=== PATIENT | male | born 1960 | race Caucasian/White ===

== ENCOUNTER 2016-11-18 11:23 | Day surgery (SDC) | payer OTHER ==
[~2016-11-18 11:23] MED LIST: ALBU0.63 NEB; ASPI-110 PO; BYST10TA2 PO; FURO1TAB60 PO; HYDR-3583 PO; LIPI80TA PO; MAGN400C2; MYCO500 PO; NOVOLOGMXP SQ; PRED5TAB PO; PROPOFOL 200 MG/20 ML AMP IV ONE; SENS60TA PO; TACR1 PO; VALS1TAB65 PO; VENTAER INH; VITA20003
[2016-11-18] MEDS ORDERED: LANTUS2P SQ (12:41)
[2016-11-18] MEDS ORDERED: DIOV80TA4 PO (12:41)
[2016-11-18] MEDS ORDERED: METO50TA PO (12:41)
[2016-11-18] MEDS ORDERED: ISOS30TA3 PO (12:41)
[2016-11-18] MEDS ORDERED: INSULIN HUMAN REGULAR 1,000 UNITS/10 ML VIAL SQ PRN (12:45)
[2016-11-18] MEDS ORDERED: LACTATED RINGER'S 1000 ML IV PRN (12:45)
[2016-11-18] MEDS ORDERED: METOPROLOL TARTRATE 25 MG TAB PO PRN (12:45)
[2016-11-18] MEDS ORDERED: POVIDONE IODINE 5% (ANTISEPSIS KIT) 4 APPLICATIONS EACH NARE PRN (12:45)
[2016-11-18] MEDS ORDERED: SODIUM CHLORID 0.9% 500 ML IV PRN (12:45)
[2016-11-18] MEDS ORDERED: CHLORHEXIDINE GLUCONATE 2 % 1 PACK (2 CLOTHS) TOPICAL PRN (12:45)
[2016-11-18] MEDS ORDERED: MISCELLANEOUS NURSING INFORMATION XX PRN (14:00)
--- NOTE | 2016-11-18 16:50 | ECHRPT ---
Indication: ENOCARDITIS CONCLUSIONS Normal left ventricular size and wall thickness. The left ventricular systolic function is normal wi th an estimated ejection fraction in the range of 60-65%. Left ventricular diastolic function parameters a re normal. Mild thickening of the mitral valve leaflets. Mild mitral valve regurgitation. Mitral annular calcification is present. Mild thickening of the tricuspid valve leaflets. There is mild tricuspid valve regurgitation. BP: / HR: Rhythm: MEASUREMENTS (Male / Female) Normal Values Technical Quality: DOPPLER TR Peak Velocity 275.0 cm/s TR Peak Gradient 30.3 mmHg Medications Complications There were no complications prior to, during or in recovery from the transesophag eal echocardiogram.. Proc. Components The patient was brought to the diagnostic imaging area in a fasting state after o btaining an informed consent. The patient was premedicated with IV Versed and IV Fentanyl. The regulatory compliance engineer ior pharynx was sprayed with Cetacaine spray and the patient was administered viscous Xylocaine 2 %. The SEBASTIEN probe was passed into the posterior pharynx , mid-esophagus, distal esophagus, and gastric fundus. SEBASTIEN was performed at multiple levels. The patient tolerated the procedure well and there were no complications. The patient was transferred to the floor in satisfactory condition.. FINDINGS LEFT VENTRICLE Normal left ventricular size and wall thickness. The left ventricular systolic function is normal wi th an estimated ejection fraction in the range of 60-65%. Left ventricular diastolic function parameters a re normal. RIGHT VENTRICLE Normal right ventricular size and systolic function. LEFT ATRIUM The left atrial size is normal. RIGHT ATRIUM The right atrial size is normal. ATRIAL APPENDAGES Normal left atrial appendage size with no evidence of thrombus formation. ATRIAL SEPTUM Normal atrial septal thickness without atrial level shunting by limited color doppler interrogation. AORTA The aortic root and proximal ascending aorta are normal in size on limited imaging. MITRAL VALVE Mild thickening of the mitral valve leaflets. Mild mitral valve regurgitation. Mitral annular calcification is present. AORTIC VALVE Trileaflet aortic valve. No aortic valve stenosis or regurgitation. TRICUSPID VALVE Mild thickening of the tricuspid valve leaflets. There is mild tricuspid valve regurgitation. VESSELS The inferior vena cava is normal in size. PULMONARY VALVE The pulmonary valve is not well visualized. PERICADIUM No pericardial effusion. Ramos Arredondo MD, FACC (Electronically Signed) Final Date:18 November 2016 16:49
== END 2016-11-18 14:45 | disposition home or self-care (01) ==
LOC: HDIC 11:23 → HDOC 11:23
PROVIDERS: ATTEND Internal Medicine
DX: I08.1 Rheumatic disorders of both mitral and tricuspid valves (principal); I25.10 Atherosclerotic heart disease of native coronary artery without angina pectoris; I12.0 Hypertensive chronic kidney disease with stage 5 chronic kidney disease or end stage renal disease; N18.6 End stage renal disease; R78.81 Bacteremia; F17.210 Nicotine dependence, cigarettes, uncomplicated; J44.9 Chronic obstructive pulmonary disease, unspecified; G47.30 Sleep apnea, unspecified; E11.9 Type 2 diabetes mellitus without complications; E66.9 Obesity, unspecified; Z99.2 Dependence on renal dialysis; Z95.5 Presence of coronary angioplasty implant and graft; Z95.1 Presence of aortocoronary bypass graft; Z79.82 Long term (current) use of aspirin; Z79.4 Long term (current) use of insulin; Z79.51 Long term (current) use of inhaled steroids; Z79.52 Long term (current) use of systemic steroids; Z79.899 Other long term (current) drug therapy
CPT/HCPCS: 93312; 93320; 93325

== ENCOUNTER 2017-04-06 13:46 | Emergency (ER) | payer OTHER ==
[~2017-04-06] VITALS: Ht 180.3 cm; Wt 122.0 kg
[~2017-04-06 13:46] MED LIST changes: -ASPI-110 PO; +ASPI1TAB57 PO; -BYST10TA2 PO; +DIOV80TA4 PO; -FURO1TAB60 PO; +ISOS30TA3 PO; +LANTUS2P SQ; -MAGN400C2; +METO50TA PO; -NOVOLOGMXP SQ; -PROPOFOL 200 MG/20 ML AMP IV ONE; -VALS1TAB65 PO; -VITA20003
[2017-04-06 13:53] VITALS: BP 216/98; PULSE 89; RESP 16; TEMP 98.8; O2SAT 95
--- NOTE | 2017-04-06 15:01 | RADRPT ---
EXAM DATE/TIME: 04/06/2017 14:15 [facility] COMPARISON: No previous studies available for comparison. INDICATIONS : Left knee pain. Patient fell through a floor today. MEDICAL HISTORY : None. SURGICAL HISTORY : None. ENCOUNTER: Initial ACUITY: 1 day PAIN SCORE: 8/10 LOCATION: Left knee. FINDINGS: There is moderate osteoarthritis. Multiple surgical clips in the soft tissues. Extensive vascular tarsha cifications. Mild osteopenia. CONCLUSION: 1. Moderate osteoarthritis. No acute fracture identified. Rui Brito MD on April 06, 2017 at 14:57 Board Certified Radiologist. This report was verified electronically.
--- NOTE | 2017-04-06 15:04 | RADRPT ---
EXAM DATE/TIME: 04/06/2017 14:15 [facility] COMPARISON: No previous studies available for comparison. INDICATIONS : Left ankle pain. Patient fell through a floor today. MEDICAL HISTORY : None. SURGICAL HISTORY : None. ENCOUNTER: Initial ACUITY: 1 day PAIN SCORE: 8/10 LOCATION: Left medial ankle. FINDINGS: Mild osteoarthritis of the ankle. Mild osteopenia. Normal alignment. No acute fracture identified. Aldana rgical clips in the soft tissues of the distal leg. CONCLUSION: 1. Mild osteoarthritis. No acute findings. Rui Brito MD on April 06, 2017 at 14:59 Board Certified Radiologist. This report was verified electronically.
--- NOTE | 2017-04-06 15:41 | PD ---
HPI Chief Complaint: Fall Time Seen by Provider: 15:06 Travel History International Travel<30 days: No Contact w/Intl Traveler<30days: No Traveled to known affect area: No History of Present Illness HPI This is a 56-year-old male here with left knee and left ankle pain after he fell approximately 2 feet through a rotted wood floor, he believes he twisted the ankle and the knee. He denies paresthesias or weakness of extremity. Pain is worse with weightbearing and range of motion. Slightly alleviated with rest. He denies head injury or loss of consciousness. Patient is not anticoagulated. PFSH Past Medical History Arthritis: No Asthma: No Autoimmune Disease: No Anxiety: No Depression: No Heart Rhythm Problems: No Cancer: Yes (skin lt ear) Cardiac Catheterization: Yes Cardiovascular Problems: Yes (6 Bypasses) High Cholesterol: Yes Chemotherapy: No Chest Pain: Yes Congestive Heart Failure: Yes COPD: No Cerebrovascular Accident: No Coronary Artery Disease: Yes Diabetes: Yes (NIDM) Diminished Hearing: No Endocrine: No Gastrointestinal Disorders: Yes (GI bleed) GERD: No Glaucoma: No Gout: Yes Genitourinary: Yes Hepatitis: No Hiatal Hernia: No Hypertension: Yes Immune Disorder: No Kidney Stones: No Musculoskeletal: Yes Neurologic: No Psychiatric: No Reproductive: No Respiratory: Yes (bronchitis) Integumentary: No Myocardial Infarction: No Pneumonia: Yes (? FEB 2013) Radiation Therapy: Yes (2007 left ear) Renal Failure: Yes (end stage) Seizures: No Sickle Cell Disease: No Thyroid Disease: No Ulcer: Yes (small intestines) Past Surgical History AICD: No Appendectomy: Yes Arteriovenous Shunt: No Body Medical Devices: Sternal wires and stent Cardiac Surgery: Yes (CABGx6) Coronary Artery Bypass Graft: Yes (2003 X 6) Coronary Stent: Yes (1) Endocrine Surgery: No Eye Surgery: No Gynecologic Surgery: No Insulin Pump: No Joint Replacement: No Oral Surgery: No Pacemaker: No Tonsillectomy: Yes Other Surgery: Yes (RENAL TRANSPLANT 2004) Social History Alcohol Use: Yes (MAYBE 3-4 TIMES A YEAR) Tobacco Use: No (QUIT 2003) Substance Use: No Allergies-Medications (Allergen,Severity, Reaction): Coded Allergies: No Known Allergies (Verified Adverse Reaction, Unknown, 04/06/17) Reported Meds & Prescriptions Reported Meds & Active Scripts Active Reported Diovan (Valsartan) 80 Mg Tab 80 Mg PO DAILY Metoprolol Tartrate 50 Mg Tab 50 Mg PO BID Lantus Inj (Insulin Glargine) 1,000 Unit/10 Ml Vial 25 Units SQ HS Isosorbide Mononitrate ER (Isosorbide Mononitrate) 30 Mg [place] 30 Mg PO DAILY Sensipar (Cinacalcet) 60 Mg Tab 60 Mg PO DAILY Prograf (Tacrolimus) 1 Mg Cap 1 Mg PO DAILY Lipitor (Atorvastatin Calcium) 80 Mg Tab 80 Mg PO HS Cellcept (Mycophenolate Mofetil) 500 Mg Tab 500 Mg PO BID Aspirin 81 (Aspirin) 81 Mg Tabdr 81 Mg PO DAILY Hydrocodone-Acetaminophen 10-325 mg Tab 1 Tab PO Q6H PRN Ventolin Hfa 18 GM Inh (Albuterol Sulfate) 90 Mcg/Act Aer 2 Puff INH Q6H PRN Albuterol Neb (Albuterol Sulfate) 0.63 Mg/3 Ml Neb 0.63 Mg NEB Q6HR NEB PRN Prednisone 5 Mg Tab 5 Mg PO DAILY Review of Systems Except as stated in HPI: all other systems reviewed are Neg General / Constitutional: No: Fever Eyes: No: Visual changes HENT: No: Headaches Cardiovascular: No: Chest Pain or Discomfort Respiratory: No: Shortness of Breath Gastrointestinal: No: Abdominal Pain Genitourinary: No: Dysuria Physical Exam Narrative GENERAL: Alert and well-appearing 56-year-old male SKIN: Warm and dry. HEAD: Normocephalic. Atraumatic EYES: Pupils equal, round, reactive to light No injection or drainage. NECK: Supple, trachea midline. No cervical midline tenderness MUSCULOSKELETAL: No cyanosis, or edema. Left lower extremity: Tenderness to the anterior aspect of the knee and over the left Achilles tendon. able to dorsiflex and plantarflex the foot. No discernible swelling. 2+ distal pulses. Normal sensation. Brisk cap refill. BACK: Nontender without obvious deformity. No CVA tenderness. Data Data Last Documented VS Vital Signs Date Time Temp Pulse Resp B/P (MAP) Pulse Ox O2 Delivery O2 Flow Rate FiO2 04/06/17 13:53 98.8 89 16 216/98 (137) 95 Orders Orders Knee, Complete (4vws) (04/06/17 ) Ankle, Complete ([id number]) (04/06/17 ) Ed Discharge Order (04/06/17 15:31) Arsh Bandage (04/06/17 15:31) [facility] Medical Decision Making Medical Screen Exam Complete: Yes Emergency Medical Condition: Yes Differential Diagnosis Fracture, strain, sprain, contusion Narrative Course 56-year-old male with left knee and ankle pain after he fell through a rotten wooden floor approximately 2 feet. He believes he twisted the ankle and knee. X-rays are negative for fracture. The extremities are neurovascularly intact. He is able to dorsiflex and plantarflex the foot although it is difficult due to pain in the ankle. He is ambulatory. Arsh wrap supplied. He was instructed to rest, ice, elevate the extremity. Take his current pain medication as needed. Follow up with primary doctor. Diagnosis Primary Impression: Ankle sprain Qualified Codes: S93.402A - Sprain of unspecified ligament of left ankle, initial encounter Additional Impression: Knee sprain Qualified Codes: S83.92XA - Sprain of unspecified site of left knee, initial encounter Referrals: Primary Care Physician Additional Instructions: Ice and elevate the extremity. Arsh wrap for support. Take her current pain medication. Follow-up with her primary doctor if you have continued pain Disposition: 01 DISCHARGE HOME Condition: Stable Lashae Cline Apr 06, 2017 15:41
== END 2017-04-06 15:59 | disposition home or self-care (01) ==
LOC: PHEFT 13:46
DX: S93.402A Sprain of unspecified ligament of left ankle, initial encounter (principal); S83.92XA Sprain of unspecified site of left knee, initial encounter; E11.9 Type 2 diabetes mellitus without complications; E78.00 Pure hypercholesterolemia, unspecified; I11.0 Hypertensive heart disease with heart failure; I50.9 Heart failure, unspecified; W13.3XXA Fall through floor, initial encounter; Z79.4 Long term (current) use of insulin
CPT/HCPCS: 73564; 73610; 99284

== ENCOUNTER → 2017-05-13 | Outpatient (CLI) | payer OTHER ==
[~2017-05-13] VITALS: Ht 180.3 cm; Wt 115.7 kg
[~2017-05-13] MED LIST changes: +CHLORHEXIDINE GLUCONATE 2 % 1 PACK (2 CLOTHS) TOPICAL PRN; +LACTATED RINGER'S 1000 ML IV PRN; +METOPROLOL TARTRATE 25 MG TAB PO PRN; +POVIDONE IODINE 5% (ANTISEPSIS KIT) 4 APPLICATIONS EACH NARE PRN; +PROPOFOL 200 MG/20 ML AMP IV ONE; +SODIUM CHLORID 0.9% 500 ML IV PRN
--- NOTE | 2017-05-13 10:33 | PD.PROCEDR ---
GI Procedure PROCEDURE PERFORMED EGD with biopsy INDICATION FOR PROCEDURE Nausea and vomiting PROCEDURE: The procedure, risks and benefits were discussed with Mr. Salguero and informed consent was obtained. Anesthesia sedated him with Diprivan. He was placed in the left lateral decubitus position. EGD: The Pentax videoscope was introduced through the oropharynx and advanced to the second portion of the duodenum under direct visualization. Retroflexion was performed in the stomach. FINDINGS: The esophagus this appear to be unremarkable with normal limits except for a mild Schatzki ring at the GE junction The stomach there was a small hiatal hernia there was patchy erythema in the gastric body and antrum with superficial erosions noted in the antrum the rest of the stomach was unremarkable antral biopsies were taken for further evaluation The duodenum this was normal ESTIMATED BLOOD LOSS: None SPECIMENS REMOVED: Gastric biopsies COMPLICATIONS: None IMPRESSION: Schatzki ring, mild Small hiatal hernia Erosive gastritis PLAN: Await biopsies Recommend pantoprazole 40 mg daily this was ordered Recommend promethazine 12.5 mg every 4-6 hours or as needed for nausea and vomiting already ordered Recommend gastric emptying scan this was ordered Follow up in clinic in 3-4 weeks Franko Mejia MD May 13, 2017 10:33
[2017-05-13 10:59] VITALS: BP 131/69; PULSE 88; RESP 20; TEMP 98; O2SAT 96
--- NOTE | 2017-05-13 11:38 | EKG ---
Date Performed: 05/13/2017 Time Performed: 08:52:26 PTAGE: 56 years EKG: Sinus rhythm MODERATE INTRAVENTRICULAR CONDUCTION DELAY BORDERLINE ECG Since the prior tracing, there has been no significant change PREVIOUS TRACING : 11/14/2015 05.33 DOCTOR: Phoebe Carr Interpretating Date/Time 05/13/2017 11:35:30
== END ==
LOC: HEND 08:04
PROVIDERS: ATTEND Internal Medicine Gastroenterology
DX: R11.2 Nausea with vomiting, unspecified (principal); K22.2 Esophageal obstruction; K44.9 Diaphragmatic hernia without obstruction or gangrene; K25.9 Gastric ulcer, unspecified as acute or chronic, without hemorrhage or perforation; R94.31 Abnormal electrocardiogram [ECG] [EKG]; E11.9 Type 2 diabetes mellitus without complications; Z79.4 Long term (current) use of insulin
CPT/HCPCS: 00731; 43239; 82948; 84132; 88305; 88312; 93005; J7040

== ENCOUNTER 2018-04-11 10:19 | Inpatient (IN) ==
--- NOTE | 2018-04-11 10:59 | XR ---
EXAM DATE: 04/11/2018 10:49 AM EST AGE/SEX: 57 years / Male INDICATIONS: Chest pains. CLINICAL DATA: This is the patient's initial encounter. Patient reports that signs and symptoms have been present for 1 day and indicates a pain score of 10/10. MEDICAL/SURGICAL HISTORY: Myocardial infarction. Cardiovascular disease. CABG. [place]PAR[place] [facility] 01/[place]2014. . FINDINGS: A single AP view of the chest demonstrates the lungs to be symmetrically aerated with no acute infilt rate or mass lesion. Heart size is prominent but well compensated. Intact median sternotomy wires wit h findings of prior CABG. Multiple lead wires overlie the chest. CONCLUSION: 1. Compensated cardiomegaly. 2. Lungs are clear. 3. Postsurgical changes with findings of prior CABG. Electronically signed by: Chuy Davis MD Board Certified Radiologist 04/11/2018 10:58 AM EST
[2018-04-11 11:06] LABS: Baso # (Auto) 0.1 th/mm3 (0.0-0.2); Baso % (Auto) 0.3 % (0.0-2.0); Eos # (Auto) 0.3 th/mm3 (0.0-0.4); Eos % (Auto) 1.8 % (0.0-4.0); Hematocrit 30.9 % (39.0-51.0); Hemoglobin 9.6 gm/dL (13.0-17.0); Lymph # (Auto) 1.3 th/mm3 (1.0-4.8); Lymph % (Auto) 7.6 % (9.0-44.0); Mean Corpuscular Hemoglobin 28.4 pg (27.0-34.0); Mean Corpuscular Volume 91.7 fL (80.0-100.0); Mean Platelet Volume 9.9 fL (7.0-11.0); Mono # (Auto) 0.8 th/mm3 (0.0-0.9); Neut # (Auto) 14.5 th/mm3 (1.8-7.7); Neut % (Auto) 85.3 % (16.0-70.0); Platelet Count 255 th/mm3 (150-450); Red Blood Count 3.37 mil/mm3 (4.50-5.90); Red Cell Distribution Width 18.3 % (11.6-17.2)
[2018-04-11 11:07] LABS: Mean Corpuscular HGB Conc 30.9 % (32.0-36.0)
[2018-04-11 11:11] LABS: Activated Partial Thrombo Time 24.5 sec (23.4-31.7); INR 1.2 Ratio; Prothrombin Time 12.1 sec (9.8-11.6)
[2018-04-11 11:25] LABS: Albumin 3.3 g/dL (3.4-5.0); Calcium 6.2 mg/dL (8.5-10.1); Carbon Dioxide 17.5 meq/L (21.0-32.0); Potassium 5.2 meq/L (3.5-5.1)
[2018-04-11 11:34] LABS: Total Protein 7.4 g/dL (6.4-8.2); Troponin I 0.07 ng/mL (0.02-0.05)
--- NOTE | 2018-04-11 11:46 | ED ---
HPI General Chief complaint: Respiratory Symptoms Stated complaint: Post Code Time Seen by Provider: 04/11/18 10:23 History of Present Illness HPI narrative: This is a 57-year-old male with a history of end-stage renal disease, hypertension, diabetes mellitus, dialysis dependent, presents via EMS after he had a reported asystolic episode while being sedated for his colonoscopy. Report per paramedics was that he went unresponsive and flatline. They report that there was 2 rounds of epinephrine and chest compressions performed. The patient was intubated to protect his airway. When patient arrived, he had been extubated. He was awake and alert and oriented. He was at his baseline according to paramedics. The patient does not recall anything that happened. He does report some mild discomfort on the right side of his chest wall. There are no other complaints at the time of my examination. Related Data Home Medications Medication Instructions Recorded Confirmed furosemide 80 mg PO DAILY 11/10/17 04/11/18 insulin glargine [Lantus U-100 25 unit SUB-Q HS 11/10/17 04/11/18 Insulin] prednisone 5 mg PO DAILY 11/10/17 04/11/18 sevelamer carbonate [Renvela] 1,600 mg PO TIDAC 11/10/17 04/11/18 albuterol sulfate [Ventolin HFA] 2 puff INHALATION Q4-6H PRN 04/11/18 04/11/18 Allergies Allergy/AdvReac Type Severity Reaction Status Date / Time No Known Allergies Allergy Verified 04/11/18 10:33 Review of Systems ROS: all other systems reviewed are negative Constitutional Reports system reviewed and no additional complaints, except as docu Eyes Reports system reviewed and no additional complaints, except as docu ENT Reports system reviewed and no additional complaints, except as docu Cardiovascular Reports chest pain (Right-sided chest wall pain), Denies palpitations and Reports other (History of coronary artery disease, has had bypass surgery.) Genitourinary Reports system reviewed and no additional complaints, except as docu Musculoskeletal Reports system reviewed and no additional complaints, except as docu and Reports other (Right upper chest wall pain after CPR.) Neurologic Denies dizziness, Denies headache(s) and Reports other (Episode of unresponsiveness. Awake and answer questions now appropriately.) [facility] Social History Social History Substance History: No History of Abuse Second Hand Smoke Exposure: Yes Smoking Status: Former smoker Tobacco Type: Cigarettes Packs Per Day: 1 Cigarettes Per Day: 20.0 Years Smoked: 20 Pack-Years: 20.00 Smoking End Date: 2003 How Often Do You Have a Drink Containing Alcohol: Monthly or less Hx Recent Travel: No Recent Travel in [facility] within the Last 8 Weeks: No Recent Out of Country Travel within the Last 8 Weeks: No Immunization History Tetanus Immunization: Unsure Exam Narrative Exam Narrative: GENERAL: Well-developed well-nourished male in no acute respiratory distress. Patient is awake answering questions. SKIN: Focused skin assessment warm/dry. HEAD: Atraumatic. Normocephalic. EYES: No scleral icterus. No injection or drainage. ENT: No nasal bleeding or discharge. Mucous membranes pink and moist. NECK: Trachea midline. Supple. CARDIOVASCULAR: Regular rate and rhythm. No murmur appreciated. RESPIRATORY: No accessory muscle use. Clear to auscultation. Breath sounds equal bilaterally. GASTROINTESTINAL: Abdomen soft, obese, non-tender, nondistended. MUSCULOSKELETAL: No obvious deformities. No clubbing. No cyanosis. No edema. NEUROLOGICAL: Awake and alert. No obvious cranial nerve deficits. Motor grossly within normal limits. Normal speech. Course Initial Documented Vital Signs Temperature 97.6 F 04/11/18 10:20 Pulse Rate 80 04/11/18 10:20 Respiratory Rate 17 04/11/18 10:20 Blood Pressure 112/52 L 04/11/18 10:20 Pulse Oximetry 91 L 04/11/18 10:20 Last Documented Vital Signs Temperature 97.6 F 04/11/18 10:20 Pulse Rate 75 04/11/18 12:00 Respiratory Rate 20 04/11/18 12:00 Blood Pressure 112/55 L 04/11/18 12:00 Pulse Oximetry 98 04/11/18 12:00 Critical Care Time Critical Care Time: Yes Total Critical Care Time: 45 Attestation: Aggregate critical care time was 45 minutes. Time to perform other separately billable procedures was not included in the critical care time. My time did not include minutes spent treating any other patients simultaneously or on activities that did not directly contribute to the patient's treatment. The services I provided to this patient were to treat and/or prevent clinically significant deterioration that could result in: I provided critical care services requiring my management, as noted below: Chart data review, documentation time, medication orders and management, vital sign assessments/reviewing monitor data, ordering and reviewing lab tests, ordering and interpreting/reviewing x-rays and diagnostic studies, care of the patient and discussion of the patient with the admitting physicians. Medical Decision Making MDM Narrative Medical decision making narrative: 57-year-old male with history of end-stage renal disease, hypertension, diabetes mellitus, presents today after having a episode of reported asystole. Patient reportedly had 2 rounds of epinephrine. The patient also was intubated. Patient was activated prior to arrival. He is awake alert and answering questions. Patient's troponin is slightly elevated at 0.07. His BUN and creatinine are elevated consistent with his end-stage renal disease. Patient's protein corrected calcium is also below 7. He will be given 1 g of calcium chloride. He will be admitted to the [facility]. He will be ruled out. There is a call out to the qa automation engineer for the patient. Medical Screen Exam Complete: Yes Emergency Medical Condition: Yes Differential Diagnosis Differential Diagnosis: Correct dysrhythmia versus metabolic derangement versus reaction to anesthesia Lab Data Result diagrams: 04/11/18 10:37 04/11/18 10:37 Lab Results 04/11/18 04/11/18 04/11/18 Range/Units 10:37 10:37 10:37 WBC 17.0 H (4.0-11.0) th/mm3 RBC 3.37 L (4.50-5.90) mil/mm3 Hgb 9.6 L (13.0-17.0) gm/dL Hct 30.9 L (39.0-51.0) % MCV 91.7 (80.0-100.0) fL MCH 28.4 (27.0-34.0) pg MCHC 30.9 L (32.0-36.0) % RDW 18.3 H (11.6-17.2) % Plt Count 255 (150-450) th/mm3 MPV 9.9 (7.0-11.0) fL Prelim Diff (Auto) Slide review pending Neut % (Auto) 85.3 H (16.0-70.0) % Lymph % (Auto) 7.6 L (9.0-44.0) % [place] % (Auto) 5.0 (0.0-8.0) % Eos % (Auto) 1.8 (0.0-4.0) % Baso % (Auto) 0.3 (0.0-2.0) % Neut # (Auto) 14.5 H (1.8-7.7) th/mm3 Lymph # (Auto) 1.3 (1.0-4.8) th/mm3 [place] # (Auto) 0.8 (0.0-0.9) th/mm3 Eos # (Auto) 0.3 (0.0-0.4) th/mm3 Baso # (Auto) 0.1 (0.0-0.2) th/mm3 WBC Differential Manual diff final Seg Neuts % (Manual) 79 H (16-70) % Band Neuts % (Manual) 4 (0-6) % Lymphocytes % (Manual) 7 L (9-44) % Monocytes % (Manual) 6 (0-8) % Eosinophils % (Manual) 2 (0-4) % Metamyelocytes % (Man) 2 H (0-1) % Abs Neuts (Manual) 14.5 H (1.8-7.7) th/mm3 Differential Comment . Platelet Estimate Normal (Normal) Platelet Morphology Normal (Normal) PT 12.1 H (9.8-11.6) sec INR 1.2 Ratio APTT 24.5 (23.4-31.7) sec Sodium (136-145) meq/L Potassium (3.5-5.1) meq/L Chloride (98-107) meq/L Carbon Dioxide (21.0-32.0) meq/L Anion Gap (5-15) meq/L BUN (7-18) mg/dL Creatinine (0.60-1.30) mg/dL Estimated GFR (>89) mL/min Random Glucose (74-106) mg/dL Calcium (8.5-10.1) mg/dL Calcium Adj for Albumin (8.5-10.1) mg/dL Total Bilirubin (0.2-1.0) mg/dL AST (15-37) U/L ALT (12-78) U/L Alkaline Phosphatase (45-117) U/L Total Creatine Kinase (39-308) U/L Troponin I (0.02-0.05) ng/mL B-Natriuretic Peptide 1680 H (0-100) pg/mL Total Protein (6.4-8.2) g/dL Albumin (3.4-5.0) g/dL 04/11/18 Range/Units 10:37 WBC (4.0-11.0) th/mm3 RBC (4.50-5.90) mil/mm3 Hgb (13.0-17.0) gm/dL Hct (39.0-51.0) % MCV (80.0-100.0) fL MCH (27.0-34.0) pg MCHC (32.0-36.0) % RDW (11.6-17.2) % Plt Count (150-450) th/mm3 MPV (7.0-11.0) fL Prelim Diff (Auto) Neut % (Auto) (16.0-70.0) % Lymph % (Auto) (9.0-44.0) % [place] % (Auto) (0.0-8.0) % Eos % (Auto) (0.0-4.0) % Baso % (Auto) (0.0-2.0) % Neut # (Auto) (1.8-7.7) th/mm3 Lymph # (Auto) (1.0-4.8) th/mm3 [place] # (Auto) (0.0-0.9) th/mm3 Eos # (Auto) (0.0-0.4) th/mm3 Baso # (Auto) (0.0-0.2) th/mm3 WBC Differential Seg Neuts % (Manual) (16-70) % Band Neuts % (Manual) (0-6) % Lymphocytes % (Manual) (9-44) % Monocytes % (Manual) (0-8) % Eosinophils % (Manual) (0-4) % Metamyelocytes % (Man) (0-1) % Abs Neuts (Manual) (1.8-7.7) th/mm3 Differential Comment Platelet Estimate (Normal) Platelet Morphology (Normal) PT (9.8-11.6) sec INR Ratio APTT (23.4-31.7) sec Sodium 134 L (136-145) meq/L Potassium 5.2 H (3.5-5.1) meq/L Chloride 99 (98-107) meq/L Carbon Dioxide 17.5 L (21.0-32.0) meq/L Anion Gap 18 H (5-15) meq/L BUN 106 H (7-18) mg/dL Creatinine 12.05 H* (0.60-1.30) mg/dL Estimated GFR 4 L (>89) mL/min Random Glucose 192 H (74-106) mg/dL Calcium 6.2 L* (8.5-10.1) mg/dL Calcium Adj for Albumin 6.8 L* (8.5-10.1) mg/dL Total Bilirubin 0.4 (0.2-1.0) mg/dL AST 22 (15-37) U/L ALT 25 (12-78) U/L Alkaline Phosphatase 151 H (45-117) U/L Total Creatine Kinase 94 (39-308) U/L Troponin I 0.07 H (0.02-0.05) ng/mL B-Natriuretic Peptide (0-100) pg/mL Total Protein 7.4 (6.4-8.2) g/dL Albumin 3.3 L (3.4-5.0) g/dL Imaging Data Radiologist's impression: Chest X-Ray 04/11/18 10:26 CONCLUSION: 1. Compensated cardiomegaly. 2. Lungs are clear. 3. Postsurgical changes with findings of prior CABG. Discharge Plan Discharge Disposition Patient Disposition: ED Admit(ED Internal Use Only) Discharge Order Discharge Orders: ED Use Only Admit Order (Routine); Ordered 04/11/18 Ordered By: Wayne Perla Discharge Details Diagnosis: Cardiopulmonary arrest with successful resuscitation, Hypertension, Diabetes, End stage renal disease on dialysis, Elevated troponin I level, Hypocalcemia Physicians Team ED Provider: Wayne Perla Primary Care Provider: Gerhard Mejia Attending Provider: Sunita Cao Other Providers: Ailin Vasquez ; Minor,Ramos Status ED Status: Admitted Patient
[2018-04-11 11:47] LABS: Eosinophils 2 % (0-4); Lymphocytes 7 % (9-44); Metamyelocytes 2 % (0-1); Monocytes 6 % (0-8); Platelet Estimate Normal (Normal); Platelet Morphology Normal (Normal)
[2018-04-11] MEDS ORDERED: Calcium Chloride Inj 1 GM in Dextrose 5% in Water Inj 100 ML IV.SIG ONE ×2 (12:08)
[2018-04-11] MEDS ORDERED: Bisacodyl 10 MG Supp RECTAL PRN (12:18)
[2018-04-11] MEDS ORDERED: Dextrose 50% in Water 50 ML Vial IV.PUSH PRN (12:24)
[2018-04-11] MEDS ORDERED: Acetaminophen 325 MG Tablet PO PRN (13:21)
[2018-04-11] MEDS ORDERED: Sod Chloride 0.9% Inj 1,000 ML OTHER PRN ×2 (13:21)
[2018-04-11] MEDS ORDERED: Sod Chloride 0.9% Inj 1,000 ML IV.CONT PRN (13:21)
[2018-04-11] MEDS ORDERED: Heparin 10,000 UNITS/10 ML Vial (for IV use) OTHER PRN ×2 (13:21)
[2018-04-11] MEDS ORDERED: Morphine Sulfate Inj 2 MG/ML Vial IV.PUSH ONE (13:33)
--- NOTE | 2018-04-11 13:39 | P.CONNP ---
History of Present Illness Service: Nephrology Consult date: 04/11/18 Requesting Physician: Sunita Cao Reason for Consult: End-stage renal disease Primary Care Provider: Gerhard Mejia MD Chief Complaint: Cardiac arrest History of Present Illness: Patient is a 57-year-old male with history of end-stage renal disease, hypertension, diabetes who has asystole while being sedated for colonoscopy, patient was resuscitated with 2 doses of epinephrine and chest compressions was performed. Patient is awake now, he was intubated but then when he arrived to the emergency he was extubated he is awake and oriented, he did not call the second events, he said he has some chest soreness. He goes on dialysis on Wednesday, Wednesday and Wednesday and today he was supposed to go for dialysis. He has a left forearm AV fistula, he stated he had previous kidney transplant worked for 10 years and then he went back on dialysis for the past 2 years he has been on dialysis. Review of Systems Constitutional: Reports body ache(s) Eyes: Denies blind spots, Denies blurry vision, Denies bulging eyes, Denies change in vision, Denies double vision, Denies discharge, Denies dry eyes, Denies floaters, Denies irritation, Denies itchy eyes, Denies loss of vision, Denies pain, Denies requires corrective lenses, Denies sensitivity to light, Denies other Ears, Nose, Mouth, and Throat: Denies abnormal hearing, Denies bleeding gums, Denies bad breath, Denies change in voice, Denies dental pain, Denies difficulty swallowing, Denies dizziness, Denies dry mouth, Denies ear discharge , Denies ear pain, Denies facial pain, Denies headache(s), Denies hearing loss, Denies hoarseness, Denies lip swelling, Denies nosebleed, Denies mouth lesions, Denies mouth pain, Denies nasal congestion, Denies nasal discharge, Denies nasal obstruction, Denies nasal trauma, Denies neck lump, Denies neck pain, Denies nose pain, Denies pain with swallowing, Denies poor balance, Denies post nasal drip, Denies ringing in the ears, Denies sinus pain, Denies sinus pressure , Denies sore throat, Denies throat swelling, Denies tongue swelling, Denies other Cardiovascular: Reports chest pain (From compression) Respiratory: Denies change in phlegm color, Denies chest congestion, Denies cough, Denies coughing up blood, Denies excessive phlegm production, Denies pain on inspiration, Denies pain with cough, Denies shortness of breath, Denies shortness of breath with activity, Denies snoring, Denies stridor, Denies wheezing, Denies other Gastrointestinal: Denies abdominal pain, Denies belching, Denies black, tarry stools, Denies bloating, Denies bright, red blood in stools, Denies change in bowel habits, Denies constant urge to pass stool, Denies change in stools, Denies coffee ground vomit, Denies constipation, Denies cramping, Denies difficulty swallowing, Denies excessive passing of gas, Denies feeling full early, Denies heartburn, Denies incontinent of stools, Denies loose stools, Denies nausea, Denies pain with swallowing, Denies vomiting, Denies vomiting blood, Denies other Genitourinary: Reports urinary frequency (On dialysis) Musculoskeletal: Reports body aches Skin/Breast: Reports other Neurologic: Reports weakness Psychiatric: Denies abnormal sleep pattern, Denies anxiety, Denies behavioral changes, Denies change in appetite, Denies change in sex drive, Denies confusion , Denies depression, Denies difficulty concentrating, Denies hearing things others do not hear, Denies hopelessness, Denies irritability, Denies lack of enjoyment, Denies memory loss, Denies mood swings, Denies panic attacks, Denies paranoia, Denies seeing things others do not see, Denies sensing things others do not sense, Denies tactile hallucinations, Denies thoughts of hurting/killing others, Denies thoughts of hurting/killing yourself, Denies other Endocrine: Denies cold intolerance, Denies excessive sweating, Denies flushing, Denies heat intolerance, Denies increased hunger, Denies increased thirst, Denies increased urination, Denies rapid, pounding, or irregular heartbeat, Denies other Hematologic/Lymphatic: Denies easy bleeding, Denies easy bruising, Denies enlarged lymph nodes, Denies other Allergic/Immunologic: Denies GI upset with certain foods, Denies hives, Denies itchy eyes, Denies lip swelling, Denies seasonal runny nose, Denies throat swelling, Denies tongue swelling, Denies wheezing, Denies other PMFSH - History History Provided By: Patient - Medical History Medical History: Medical History (Last Reviewed 04/11/18 @ 13:30 by Ailin Vasquez MD) Colonoscopy planned HTN (hypertension) AVF (arteriovenous fistula) Abnormal biopsy of kidney Diabetes mellitus Erosive esophagitis GERD (gastroesophageal reflux disease) History of fracture Hx of skin malignancy Hypercholesterolemia Kidney transplant failure Obesity Smoking history Transfusion history - Surgical History Surgical History: Surgical History (Last Reviewed 04/11/18 @ 13:30 by Ailin Vasquez MD) H/O exploratory laparotomy Hx of CABG Hx of appendectomy Kidney transplant recipient S/P PTCA (percutaneous transluminal coronary angioplasty) - Family History Family History: Family History (Last Reviewed 04/11/18 @ 13:30 by Ailin Vasquez MD) Father Emphysema of lung Grandparent Kidney disease Breast cancer - Social History I have reviewed the patient's Social History: Yes - Tobacco History Second Hand Smoke Exposure: Yes Tobacco Use In Past 30 Days: No Smoking Status: Former smoker Tobacco Type: Cigarettes Packs Per Day: 1 Years Smoked: 20 Smoking End Date: 2003 - Alcohol History How Often Do You Have a Drink Containing Alcohol: Monthly or less - Substance Use History Substance History: No History of Abuse - Travel History History of Recent Travel: No Recent Travel in the [place] Within the Last 8 Weeks: No Recent Travel Out of the Country Within the Last 8 Weeks: No - Immunization History Tetanus Immunization: Unsure Hx Influenza Vaccine This Season: Yes Medications and Allergies Active Medications: Active Medications Albuterol (Duoneb Neb (Chel)) 1 ampul NEB Q4HR NEB CHEL Albuterol (Duoneb Neb (Prn)) 1 ampul NEB Q2HR NEB PRN PRN Reason: WHEEZING Bisacodyl (Dulcolax Supp) 10 mg RECTAL DAILY PRN PRN Reason: SEVERE CONSITIPATION Chlorhexidine Gluconate (Chlorhexidine 2% Cloth) 3 pack TOPICAL DAILY@0400 CHEL Stop: 04/17/18 03:59 Chlorhexidine Gluconate (Chlorhexidine 2% Cloth) 3 pack TOPICAL DAILY@0400 PRN PRN Reason: Extra cloth needed Stop: 04/17/18 03:59 Dextrose (D50w Vial) 50 ml IV.PUSH UNSCH PRN PRN Reason: PER HYPOGLYCEMIA PROTOCOL Glucagon (Glucagon Inj) 1 mg OTHER UNSCH PRN PRN Reason: for Hypoglycemia Protocol Heparin Sodium (Porcine) (Heparin Inj) 5,000 units SQ Q12H [facility] Insulin Aspart (Novolog Insulin Correctional Sugar Inj) 0 unit SQ Q6HR [facility]; Protocol Lactulose (Lactulose Liq) 30 ml PO DAILY PRN PRN Reason: SEVERE CONSITIPATION Pantoprazole Sodium (Protonix Inj) 40 mg IV.PUSH DAILY [facility] Senna/Docusate Sodium (Maribel-Colace) 1 tab PO BID [facility] Sennosides (Senokot) 17.2 mg PO Q12H PRN PRN Reason: Moderate Constipation Sodium Chloride (Ns Flush) 2 ml IV.FLUSH UNSCH PRN PRN Reason: FLUSH AFTER USING IV ACCESS Sodium Chloride (Ns Flush) 2 ml IV.FLUSH BID [facility] Allergies Allergy/AdvReac Type Severity Reaction Status Date / Time No Known Allergies Allergy Verified 04/11/18 10:33 Home Medications Medication Instructions Recorded Confirmed Type furosemide 80 mg PO DAILY 11/10/17 04/11/18 History insulin glargine [Lantus U-100 25 unit SUB-Q HS 11/10/17 04/11/18 History Insulin] prednisone 5 mg PO DAILY 11/10/17 04/11/18 History sevelamer carbonate [Renvela] 1,600 mg PO TIDAC 11/10/17 04/11/18 History albuterol sulfate [Ventolin HFA] 2 puff INHALATION Q4-6H PRN 04/11/18 04/11/18 History Exam Vital signs: Vital Signs 04/11/18 10:20 04/11/18 10:35 04/11/18 11:11 Temperature 97.6 F Pulse Rate 80 77 Respiratory Rate 17 16 Blood Pressure 112/52 L 121/66 Pulse Oximetry 91 L 93 L 98 04/11/18 12:00 Temperature Pulse Rate 75 Respiratory Rate 20 Blood Pressure 112/55 L Pulse Oximetry 98 Intake & Output 04/10/18 04/11/18 04/11/18 18:59 06:59 18:59 Weight 123 kg Other: Weight On Admission 123 kg Narrative: GENERAL: Well-nourished, well-developed patient. SKIN: Warm and dry. HEAD: Normocephalic. EYES: No scleral icterus. No injection or drainage. NECK: Supple, trachea midline. No JVD or lymphadenopathy. CARDIOVASCULAR: Regular rate and rhythm without murmurs, gallops, or rubs. RESPIRATORY: Breath sounds equal bilaterally. No accessory muscle use. GASTROINTESTINAL: Abdomen soft, non-tender, nondistended. EXTREMITIES: mild edema, AV fistula left forearm NEUROLOGICAL: Awake, alert, and oriented x 3. Non-focal. Results - Lab Results 04/11/18 10:37 04/11/18 10:37 Most recent lab results Calcium 6.2 mg/dL (8.5-10.1) L* 04/11/18 10:37 Assessment and Plan - Assessment (1) End stage renal disease Code(s): N18.6 - End stage renal disease Status: Acute Plan: He has mild hyperkalemia and his creatinine is elevated, he had cardiac asystole caused by underlying cardiac disease he has previous CABG and PTCA, he take aspirin Cardiology consult Hemodialysis will be done cautious Monitor intake and output Calcium was replaced (2) Hypertension Code(s): I10 - Essential (primary) hypertension Status: Acute Plan: Continue to monitor (3) Diabetes Code(s): E11.9 - Type 2 diabetes mellitus without complications Status: Acute Plan: Monitor blood glucose, follow blood work (4) Cardiopulmonary arrest with successful resuscitation Code(s): I46.9 - Cardiac arrest, cause unspecified Status: Acute Plan: Cardiology consulted (2) Hypertension Qualifiers: Hypertension type: essential hypertension Qualified Code(s): I10 - Essential (primary) hypertension (3) Diabetes Qualifiers: Diabetes mellitus retirement insulin use: unspecified set up inspector insulin use status
[2018-04-11] MEDS: Heparin - SQ 10,000 UNITS/ML Vial SQ SCH (13:57)
[2018-04-11] MEDS: Pantoprazole Inj 40 MG Vial IV.PUSH SCH (14:01)
--- NOTE | 2018-04-11 15:27 | MH ---
cc: Sunita Cao MD DATE OF ADMISSION: 04/11/2018 HISTORY OF PRESENT ILLNESS: The patient is a 57-year-old male with multiple medical comorbidities which include end-stage renal disease, on hemodialysis, being followed by Dr. Vogel, status post renal transplant in 2004, hypertension, diabetes mellitus, coronary artery disease with previous coronary artery bypass grafting in 2003. The patient was getting his colonoscopy and while being sedated, he had an asystolic episode. He received 2 rounds of epinephrine and chest compressions performed. He was initially intubated, and on arrival to the ER, he was extubated. The patient was awake, alert, and oriented. He does not recall anything that happened. He reports mild chest discomfort on the right side of his chest wall due to chest compressions. No other complaints were reported. He denies any shortness of breath, orthopnea, PND, or edema of lower extremities. Also, he denies any cough, wheezing or constitutional symptoms. LABORATORY DATA: His laboratory data showed creatinine of 12, with potassium of 5.2. His BNP was elevated at 1680. Troponin was 0.07. STUDIES: A chest x-ray in the ER showed no obvious infiltrates or effusions. Post surgical changes with findings of prior CABG. He denies any nausea, vomiting or abdominal pain. PAST MEDICAL HISTORY: Significant for hypertension, diabetes mellitus, erosive esophagitis, GERD, hyperlipidemia, end-stage renal disease, coronary artery disease. PAST SURGICAL HISTORY: Previous CABG in 2003, previous renal transplant in 2004, history of exploratory laparotomy, history of appendectomy, history of cardiac catheterization with PTCA. SOCIAL HISTORY: Ex-smoker, quit smoking in 2003 with a [id number] history of smoking. Nondrinker. ALLERGIES: NO KNOWN DRUG ALLERGIES. MEDICATIONS AT HOME: 1. Renvela. 2. Prednisone. 3. Insulin. 4. Lasix. 5. Albuterol. FAMILY HISTORY: Noncontributory to present illness. REVIEW OF SYSTEMS: As per HPI. Rest of the systems is unremarkable. PHYSICAL EXAMINATION: GENERAL: A 57-year-old male lying in bed in no acute distress. VITAL SIGNS: Temperature of 97.6, pulse 75, respiratory rate 20, blood pressure 112/55, saturation 98% on 4 liters oxygen. HEENT: Atraumatic, normocephalic. Pupils are equal, round, reactive to light and accommodation. Extraocular muscles intact. Conjunctivae pink. Nonicteric sclerae. Oral mucosa within normal. NECK: Supple. No JVD, adenopathy or thyromegaly. Trachea in the midline. CARDIOVASCULAR: Regular rate and rhythm. Normal S1, S2. No murmurs, rubs or gallops noted upon: Bilateral air entry. No rales or wheezing. ABDOMEN: Soft, obese, nontender, nondistended, positive bowel sounds. EXTREMITIES: No cyanosis, clubbing, edema. NEUROLOGIC: No focal sensory deficit. LABORATORY DATA: Sodium 134, potassium 5.2, chloride 99, CO2 of 17, BUN 106, creatinine of 12, glucose 192, calcium adjusted for albumin 6.8, total bilirubin 0.4, AST 22, ALT 25, alkaline phosphatase 151. BNP 1680. Troponin 0.07. WBC 17, hemoglobin 9.6, hematocrit 30, platelet count 255,000. RADIOGRAPHIC FINDINGS: Chest x-ray showed no obvious infiltrates or effusions, cardiomegaly. Post surgical changes with findings of prior CABG. IMPRESSION: 1. Respiratory insufficiency. 2. Status post cardiopulmonary arrest, asystolic event. 3. End-stage renal disease, on hemodialysis. 4. Leukocytosis. 5. Anemia. 6. Hypocalcemia. 7. Hypertension. 8. Diabetes mellitus. 9. Gastroesophageal reflux disease. 10. Previous renal transplant in 2004. 11. CAD/CABG in 2003. RECOMMENDATIONS: 1. Monitor neuro status closely and avoid any sedatives. 2. Continue with oxygen and maintain sats above 92%. 3. Bronchodilators in the form of DuoNeb every 4 hours plus every 2 hours p.r.n. for shortness of breath. We will add Symbicort 160/4.5 two puffs b.i.d. 4. Monitor heart rate and blood pressure closely and maintain MAP greater than 65 mmHg. Monitor cardiac enzymes with troponins. We will obtain 2-D echo to evaluate LV function. We will consult cardiology, Dr. Arredondo, as the patient is known to him. 5. Monitor renal function, I's and O's and avoid nephrotoxins. Consult nephrology service for hemodialysis. Continue with prednisone 5 mg daily for his transplant medicine. 6. Keep n.p.o. for now and place on Protonix 40 mg daily. 7. We will hold off on antibiotics at this time as there is no evidence of any infectious process. A chest x-ray in the ED showed no obvious infiltrates. We will obtain urinalysis with culture if indicated. 8. Monitor CBC. 9. Place on sliding scale insulin with Accu-Cheks for glycemic control. 10. Gastrointestinal prophylaxis with Protonix 40 mg daily and thrombosis prophylaxis with sequential compression devices and heparin subcutaneously. 11. The patient appears hemodynamically stable, will transfer care to Hospitalist service in a.m. Discussed with Dr. Augustin. MD MELY Singh/julieth/mandi , 01:43 PM , 01:58 PM [email or web address]
[2018-04-11 16:04] LABS: Hepatitis A IgM Antibody Nonreactive (Nonreactive); Hepatitits B Surface Antigen Nonreactive (Nonreactive)
[2018-04-11] MEDS: predniSONE 5 MG Tablet PO SCH (17:07)
--- NOTE | 2018-04-11 18:22 | ECHRPT ---
Indication: Shortness of Breath CONCLUSIONS The left ventricular systolic function is low normal with an estimated ejection fraction in the rang e of 50- 55%. Mildly dilated left ventricle. Left ventricular diastolic function parameters are normal. Mild mitral valve regurgitation. There is mild tricuspid valve regurgitation. BP: / HR: Rhythm: MEASUREMENTS (Male / Female) Normal Values Technical Quality:Fair 2D ECHO LV Diastolic Diameter PLAX 6.1 cm 4.2 - 5.9 / 3.9 - 5.3 cm LV Systolic Diameter PLAX 4.3 cm IVS Diastolic Thickness 1.2 cm 0.6 - 1.0 / 0.6 - 0.9 cm LVPW Diastolic Thickness 1.2 cm 0.6 - 1.0 / 0.6 - 0.9 cm LV Relative Wall Thickness 0.4 RV Internal Dim ED PLAX 3.8 cm LVOT Diameter 2.0 cm Aortic Root Diameter 3.6 cm LA Systolic Diameter LX 4.2 cm 3.0 - 4.0 / 2.7 - 3.8 cm DOPPLER AV Peak Velocity 148.0 cm/s AV Peak Gradient 8.8 mmHg LVOT Peak Velocity 111.0 cm/s LVOT Peak Gradient 4.9 mmHg AV Area Cont Eq pk 2.4 cm Mitral E Point Velocity 133.0 cm/s Mitral A Point Velocity 65.4 cm/s Mitral E to A Ratio 2.0 LV E' Lateral Velocity 10.9 cm/s Mitral E to LV E' Lateral Ratio 12.2 LV E' Septal Velocity 8.2 cm/s Mitral E to LV E' Septal Ratio 16.2 TR Peak Velocity 284.0 cm/s TR Peak Gradient 32.3 mmHg Right Atrial Pressure 10.0 mmHg Pulmonary Artery Systolic Pressu 42.3 mmHg Right Ventricular Systolic Press 42.3 mmHg PV Peak Velocity 124.0 cm/s PV Peak Gradient 6.2 mmHg FINDINGS LEFT VENTRICLE Mildly dilated left ventricle. Mild concentric left ventricular hypertrophy. The left ventricular systolic function is low normal with an estimated ejection fraction in the rang e of 50- 55%. Left ventricular diastolic function parameters are normal. RIGHT VENTRICLE Grossly normal LEFT ATRIUM The left atrial size is mildly dilated. RIGHT ATRIUM The right atrial size is normal. ATRIAL SEPTUM Normal atrial septal thickness without atrial level shunting by limited color doppler interrogation. AORTA The aortic root and proximal ascending aorta are normal in size on limited imaging. MITRAL VALVE Structurally normal mitral valve. No mitral valve stenosis. Mild mitral valve regurgitation. Mitral annular calcification is present. AORTIC VALVE Trileaflet aortic valve. Aortic valve sclerosis is present. No aortic valve regurgitation. No aortic valve stenosis. TRICUSPID VALVE Structurally normal tricuspid valve. There is mild tricuspid valve regurgitation. The estimated pulmonary arterial pressure is 42 mmHg. PULMONARY VALVE No pulmonary valve regurgitation or stenosis. VESSELS The inferior vena cava is normal in size. PERICARDIUM No pericardial effusion. Teddy Smith DO (Electronically Signed) Final Date:11 April 2018 18:21
[2018-04-11] MEDS: Insulin NovoLOG Aspart Correctional Sugar Inj SQ SCH (18:46)
[2018-04-11] MEDS: Senna/Docusate Sodium 8.6/50 MG Tablet PO SCH (21:05)
--- NOTE | 2018-04-11 21:28 | ECG ---
Date Performed: 04/11/2018 Time Performed: 10:22:58 PTAGE: 57 years EKG: Sinus rhythm WITH OCCASIONAL ECTOPIC PREMATURE COMPLEXES NONSPECIFIC ST CHANGES BORDERLINE ECG Compared to PREVIOUS TRACING , ST changes present DOCTOR: Lashawn Jackson Interpretating Date/Time 04/11/2018 21:28:03
--- NOTE | 2018-04-11 22:00 | P.PN ---
Subjective Interval history: called to see patient transferred from manager transportation to hospitalist ,S/P cardio pulmonary arrest at GI office prepping for colonoscopy ,required intubation. Now extubated able to talk not sure as to what happened earlier today. Patient with known chronic back pain on hydrocodone 10/325 for pain will restart at this time and continue orders from Dr. Cao. Patient on nebulizer and does have elevated WBC count no obvious sorce of infection at this time. Physical Exam Vital signs: Vital Signs 04/11/18 10:20 04/11/18 10:35 04/11/18 11:11 Temperature 97.6 F Pulse Rate 80 77 Respiratory Rate 17 16 Blood Pressure 112/52 L 121/66 Pulse Oximetry 91 L 93 L 98 04/11/18 12:00 04/11/18 13:15 04/11/18 13:40 Temperature 97.4 F L Pulse Rate 75 79 78 Respiratory Rate 20 25 H Blood Pressure 112/55 L 122/69 Pulse Oximetry 98 99 04/11/18 14:00 04/11/18 14:51 04/11/18 14:52 Temperature Pulse Rate 76 74 Respiratory Rate 17 16 Blood Pressure Pulse Oximetry 97 04/11/18 16:00 04/11/18 18:00 04/11/18 19:52 Temperature Pulse Rate 76 78 111 H Respiratory Rate 17 20 Blood Pressure Pulse Oximetry 96 04/11/18 20:16 Temperature Pulse Rate Respiratory Rate 35 H Blood Pressure Pulse Oximetry Intake & Output 04/11/18 04/11/18 04/12/18 06:59 18:59 06:59 Intake Total 110 / 110 Output Total 0 / 0 3000 / 3000 Balance 110 / 110 -3000 / -3000 Weight 123 kg Intake: IV 110 / 110 Calcium Chloride Inj 1 GM In 110 / 110 D5W Inj 100 ML @ 110 mls/hr IV. SIG ONCE ONE Rx#:[id number] Oral 0 / 0 Output: Urine 0 / 0 Hemodialysis Amount 3000 / 3000 Other: # Bowel Movements 0 Weight On Admission 123 kg Narrative: GENERAL: Well-nourished, well-developed patient. SKIN: Warm and dry. HEAD: Normocephalic. EYES: No scleral icterus. No injection or drainage. NECK: Supple, trachea midline. No JVD or lymphadenopathy. CARDIOVASCULAR: Regular rate and rhythm without murmurs, gallops, or rubs. RESPIRATORY: Breath sounds equal bilaterally. No accessory muscle use. GASTROINTESTINAL: Abdomen soft, non-tender, nondistended. EXTREMITIES: mild edema, AV fistula left forearm NEUROLOGICAL: Awake, alert, and oriented x 3. Non-focal. Results - Labs CBC & Chem 7: 04/11/18 10:37 04/11/18 10:37 Laboratory Results - last 24 hr 04/11/18 04/11/18 04/11/18 10:37 10:37 10:37 WBC 17.0 H RBC 3.37 L Hgb 9.6 L Hct 30.9 L MCV 91.7 MCH 28.4 MCHC 30.9 L RDW 18.3 H Plt Count 255 MPV 9.9 Prelim Diff (Auto) Slide review pending Neut % (Auto) 85.3 H Lymph % (Auto) 7.6 L [place] % (Auto) 5.0 Eos % (Auto) 1.8 Baso % (Auto) 0.3 Neut # (Auto) 14.5 H Lymph # (Auto) 1.3 [place] # (Auto) 0.8 Eos # (Auto) 0.3 Baso # (Auto) 0.1 WBC Differential Manual diff final Seg Neuts % (Manual) 79 H Band Neuts % (Manual) 4 Lymphocytes % (Manual) 7 L Monocytes % (Manual) 6 Eosinophils % (Manual) 2 Metamyelocytes % (Man) 2 H Abs Neuts (Manual) 14.5 H Differential Comment . Platelet Estimate Normal Platelet Morphology Normal PT 12.1 H INR 1.2 APTT 24.5 Sodium Potassium Chloride Carbon Dioxide Anion Gap BUN Creatinine Estimated GFR POC Glucose Random Glucose Calcium Calcium Adj for Albumin Total Bilirubin AST ALT Alkaline Phosphatase Total Creatine Kinase Troponin I B-Natriuretic Peptide 1680 H Total Protein Albumin Nasal Screen MRSA (PCR) Hepatitis A IgM Ab Hep Bs Antigen Hep B Core IgM Ab Hep C IgG Ab 04/11/18 04/11/18 04/11/18 10:37 13:15 14:08 WBC RBC Hgb Hct MCV MCH MCHC RDW Plt Count MPV Prelim Diff (Auto) Neut % (Auto) Lymph % (Auto) [place] % (Auto) Eos % (Auto) Baso % (Auto) Neut # (Auto) Lymph # (Auto) [place] # (Auto) Eos # (Auto) Baso # (Auto) WBC Differential Seg Neuts % (Manual) Band Neuts % (Manual) Lymphocytes % (Manual) Monocytes % (Manual) Eosinophils % (Manual) Metamyelocytes % (Man) Abs Neuts (Manual) Differential Comment Platelet Estimate Platelet Morphology PT INR APTT Sodium 134 L Potassium 5.2 H Chloride 99 Carbon Dioxide 17.5 L Anion Gap 18 H BUN 106 H Creatinine 12.05 H* Estimated GFR 4 L POC Glucose Random Glucose 192 H Calcium 6.2 L* Calcium Adj for Albumin 6.8 L* Total Bilirubin 0.4 AST 22 ALT 25 Alkaline Phosphatase 151 H Total Creatine Kinase 94 Troponin I 0.07 H B-Natriuretic Peptide Total Protein 7.4 Albumin 3.3 L Nasal Screen MRSA (PCR) Not detected Hepatitis A IgM Ab Nonreactive Hep Bs Antigen Nonreactive Hep B Core IgM Ab Nonreactive Hep C IgG Ab Nonreactive 04/11/18 04/11/18 16:11 18:26 WBC RBC Hgb Hct MCV MCH MCHC RDW Plt Count MPV Prelim Diff (Auto) Neut % (Auto) Lymph % (Auto) [place] % (Auto) Eos % (Auto) Baso % (Auto) Neut # (Auto) Lymph # (Auto) [place] # (Auto) Eos # (Auto) Baso # (Auto) WBC Differential Seg Neuts % (Manual) Band Neuts % (Manual) Lymphocytes % (Manual) Monocytes % (Manual) Eosinophils % (Manual) Metamyelocytes % (Man) Abs Neuts (Manual) Differential Comment Platelet Estimate Platelet Morphology PT INR APTT Sodium Potassium Chloride Carbon Dioxide Anion Gap BUN Creatinine Estimated GFR POC Glucose 117 H Random Glucose Calcium Calcium Adj for Albumin Total Bilirubin AST ALT Alkaline Phosphatase Total Creatine Kinase Troponin I 0.12 H B-Natriuretic Peptide Total Protein Albumin Nasal Screen MRSA (PCR) Hepatitis A IgM Ab Hep Bs Antigen Hep B Core IgM Ab Hep C IgG Ab - Imaging Impressions Chest X-Ray 04/11/18 10:26 CONCLUSION: 1. Compensated cardiomegaly. 2. Lungs are clear. 3. Postsurgical changes with findings of prior CABG. Assessment and Plan - Assessment (1) Lumbar back pain Code(s): M54.5 - Low back pain Status: Acute Plan: probably accerbated from events earlier today continue hydrocodone at this time
[2018-04-12] MEDS: Insulin NovoLOG Aspart Correctional Sugar Inj SQ SCH ×4 (00:21→18:00)
[2018-04-12] MEDS: Heparin - SQ 10,000 UNITS/ML Vial SQ SCH ×2 (00:22→12:44)
[2018-04-12] MEDS ORDERED: Chlorhexidine Gluconate 2% 1 Pack (2 Cloths) TOPICAL PRN (04:00)
[2018-04-12] MEDS: Chlorhexidine Gluconate 2% 1 Pack (2 Cloths) TOPICAL SCH (05:57)
--- NOTE | 2018-04-12 08:00 | P.CONCA ---
History of Present Illness Primary Care Provider: Gerahrd Mejia MD Chief Complaint: Cardiac arrest History of Present Illness: 57-year-old male with CAD s/p 6v CABG 2003 and PCI to LCx 05/18 grafts patent on LHC, ESRD on home HD 4x per week, HTN, HLD, DM. The patient was at [place] getting colonoscopy done yesterday and had reported asystolic cardiac arrest, no strips available at this time. He received ACLS with 2 rounds of epinephrine and was reportedly back to normal by the time he arrived to the ED and had no complaints at that time. The patient reports that overnight he has been having significant shortness of breath. He also complains of chest discomfort. He states he has been having episodes of his typical angina (across the chest and radiating down the left arm) lately that have been relieved by nitroglycerin, and he is having some of this discomfort currently. He is also having worsening chest discomfort as well with deep breathing. No orthopnea, leg swelling, or recent weight gain. He has noticed more fatigue and dyspnea on exertion lately. He denies any recent prolonged immobilization, long car or plane trips, etc. Cardiac workup to date has revealed: EKG with NSR, ST depressions anteriorly. Troponin 0 0.07, 0.12. Chest x-ray with no acute process. Echocardiogram with EF 5055%. telemetry with no significant arrhythmia noted overnight. Recent outpatient cardiac workup includes: echocardiogram 03/01 with EF 4045%. Lexiscan 09/2017 with inferior infarct, no ischemia. Review of Systems All other systems reviewed negative except as stated in HPI PMFSH - History History Provided By: Patient, Medical Record - Medical History Medical History: Medical History (Last Reviewed 04/11/18 @ 13:30 by Ailin Vasquez MD) Colonoscopy planned HTN (hypertension) AVF (arteriovenous fistula) Abnormal biopsy of kidney Diabetes mellitus Erosive esophagitis GERD (gastroesophageal reflux disease) History of fracture Hx of skin malignancy Hypercholesterolemia Kidney transplant failure Obesity Smoking history Transfusion history - Surgical History Surgical History: Surgical History (Last Reviewed 04/11/18 @ 13:30 by Ailin Vasquez MD) H/O exploratory laparotomy Hx of CABG Hx of appendectomy Kidney transplant recipient S/P PTCA (percutaneous transluminal coronary angioplasty) - Family History Family History: Family History (Last Reviewed 04/11/18 @ 13:30 by Ailin Vasquez MD) Father Emphysema of lung Grandparent Kidney disease Breast cancer - Tobacco History Second Hand Smoke Exposure: Yes Tobacco Use In Past 30 Days: No Smoking Status: Former smoker Tobacco Type: Cigarettes Packs Per Day: 1 Years Smoked: 20 Smoking End Date: 2003 - Alcohol History How Often Do You Have a Drink Containing Alcohol: Monthly or less - Substance Use History Substance History: No History of Abuse - Travel History History of Recent Travel: No Recent Travel in the [place] Within the Last 8 Weeks: No Recent Travel Out of the Country Within the Last 8 Weeks: No - Immunization History Tetanus Immunization: Unsure Hx Influenza Vaccine This Season: Yes Medications and Allergies Allergies Allergy/AdvReac Type Severity Reaction Status Date / Time No Known Allergies Allergy Verified 04/11/18 10:33 Home Medications Medication Instructions Recorded Confirmed Type furosemide 80 mg PO DAILY 11/10/17 04/11/18 History insulin glargine [Lantus U-100 25 unit SUB-Q HS 11/10/17 04/11/18 History Insulin] prednisone 5 mg PO DAILY 11/10/17 04/11/18 History sevelamer carbonate [Renvela] 1,600 mg PO TIDAC 11/10/17 04/11/18 History albuterol sulfate [Ventolin HFA] 2 puff INHALATION Q4-6H PRN 04/11/18 04/11/18 History Active Medications: Active Medications Hydrocodone Bitart/Acetaminophen ([place] 10/325) 1 tab PO Q6H PRN PRN Reason: PAIN SCALE 6 TO 10 Last Admin: 04/12/18 07:15 Dose: 1 tab Albuterol (Duoneb Neb (Chel)) 1 ampul NEB Q4HR NEB CHEL Last Admin: 04/12/18 07:45 Dose: 1 ampul Albuterol (Duoneb Neb (Prn)) 1 ampul NEB Q2HR NEB PRN PRN Reason: WHEEZING Bisacodyl (Dulcolax Supp) 10 mg RECTAL DAILY PRN PRN Reason: SEVERE CONSITIPATION Chlorhexidine Gluconate (Chlorhexidine 2% Cloth) 3 pack TOPICAL DAILY@0400 [facility] Stop: 04/17/18 03:59 Last Admin: 04/12/18 05:57 Dose: Not Given Chlorhexidine Gluconate (Chlorhexidine 2% Cloth) 3 pack TOPICAL DAILY@0400 PRN PRN Reason: Extra cloth needed Stop: 04/17/18 03:59 Clonidine HCl (Catapres) 0.1 mg PO UNSCH PRN PRN Reason: SEE LABEL COMMENTS Dextrose (D50w Vial) 50 ml IV.PUSH UNSCH PRN PRN Reason: PER HYPOGLYCEMIA PROTOCOL Diphenhydramine HCl (Benadryl) 25 mg PO UNSCH PRN PRN Reason: SEE LABEL COMMENTS Epoetin Gian (Epogen Inj) 4,000 unit IV.PUSH UNSCH PRN PRN Reason: SEE LABEL COMMENTS Last Admin: 04/11/18 16:22 Dose: 4,000 unit Gelatin (Gelfoam 12 Mm/7 Mm Topical) 1 foam TOPICAL PRN PRN PRN Reason: help stop bleeding from site Gentamicin Sulfate (Gentamicin Inj) 20 mg OTHER WITH DIALYSIS PRN PRN Reason: Dwell Gentamycin Lock Glucagon (Glucagon Inj) 1 mg OTHER UNSCH PRN PRN Reason: for Hypoglycemia Protocol Heparin Sodium (Porcine) (Heparin Inj) 5,000 units SQ Q12H CHEL Last Admin: 04/12/18 00:22 Dose: 5,000 units Heparin Sodium (Porcine) (Heparin Inj) 8,000 units OTHER WITH DIALYSIS PRN PRN Reason: for machine prime Heparin Sodium (Porcine) (Heparin Inj) 1,000 units OTHER WITH DIALYSIS PRN PRN Reason: Dwell Heparin to Fill Catheter Albumin Human (Flexbumin 25% Inj) 100 mls @ 60 mls/hr IV.SIG WITH DIALYSIS PRN PRN Reason: hypotension / volume replace Sodium Chloride (Ns Inj) 1,000 mls @ 0 mls/hr OTHER .Q0M PRN PRN Reason: for prime and rinse back Sodium Chloride (Ns Inj) 1,000 mls @ 200 mls/hr OTHER .Q5H PRN PRN Reason: for dialyzer flush PRN Sodium Chloride (Ns Inj) 1,000 mls @ 0 mls/hr IV.CONT .Q0M PRN PRN Reason: hypotension / volume replace Insulin Aspart (Novolog Insulin Correctional Sugar Inj) 0 unit SQ Q6HR CHEL; Protocol Last Admin: 04/12/18 07:21 Dose: Not Given Lactulose (Lactulose Liq) 30 ml PO DAILY PRN PRN Reason: SEVERE CONSITIPATION Mannitol (Mannitol Inj) 12.5 gm IV.PUSH UNSCH PRN PRN Reason: hypotension / volume replace Nitroglycerin (Nitrostat Sl) 0.4 mg SL Q5M PRN PRN Reason: CHEST PAIN Ondansetron HCl (Zofran Inj) 4 mg IV.PUSH UNSCH PRN PRN Reason: NAUSEA OR VOMITING Pantoprazole Sodium (Protonix Inj) 40 mg IV.PUSH DAILY [facility] Last Admin: 04/11/18 14:01 Dose: 40 mg Prednisone (Deltasone) 5 mg PO DAILY [facility] Last Admin: 04/11/18 17:07 Dose: Not Given Senna/Docusate Sodium (Maribel-Colace) 1 tab PO BID [facility] Last Admin: 04/11/18 21:05 Dose: Not Given Sennosides (Senokot) 17.2 mg PO Q12H PRN PRN Reason: Moderate Constipation Sodium Chloride (Ns Flush) 2 ml IV.FLUSH UNSCH PRN PRN Reason: FLUSH AFTER USING IV ACCESS Sodium Chloride (Ns Flush) 2 ml IV.FLUSH BID [facility] Last Admin: 04/11/18 21:05 Dose: 2 ml Sodium Chloride (Ns Flush) 5 ml IV.FLUSH PRN PRN PRN Reason: flush each lumen during HD Exam Vital signs: Vital Signs 04/11/18 10:20 04/11/18 10:35 04/11/18 11:11 Temperature 97.6 F Pulse Rate 80 77 Respiratory Rate 17 16 Blood Pressure 112/52 L 121/66 Pulse Oximetry 91 L 93 L 98 04/11/18 12:00 04/11/18 13:15 04/11/18 13:40 Temperature 97.4 F L Pulse Rate 75 79 78 Respiratory Rate 20 25 H Blood Pressure 112/55 L 122/69 Pulse Oximetry 98 99 04/11/18 14:00 04/11/18 14:51 04/11/18 14:52 Temperature Pulse Rate 76 74 Respiratory Rate 17 16 Blood Pressure Pulse Oximetry 97 04/11/18 16:00 04/11/18 18:00 04/11/18 19:52 Temperature Pulse Rate 76 78 111 H Respiratory Rate 17 20 Blood Pressure Pulse Oximetry 96 04/11/18 20:00 04/11/18 20:16 04/11/18 22:00 Temperature Pulse Rate 107 H 111 H Respiratory Rate 35 H Blood Pressure Pulse Oximetry 95 04/11/18 23:24 04/11/18 23:37 04/12/18 00:00 Temperature Pulse Rate 115 H 113 H Respiratory Rate 20 35 H Blood Pressure Pulse Oximetry 04/12/18 01:16 04/12/18 01:56 04/12/18 02:00 Temperature Pulse Rate 110 H Respiratory Rate 19 22 Blood Pressure Pulse Oximetry 04/12/18 03:16 04/12/18 04:00 04/12/18 06:00 Temperature Pulse Rate 115 H 113 H 80 Respiratory Rate 16 15 Blood Pressure Pulse Oximetry 04/12/18 07:45 Temperature Pulse Rate 81 Respiratory Rate 18 Blood Pressure Pulse Oximetry 95 Intake & Output 04/11/18 04/12/18 04/12/18 18:59 06:59 18:59 Intake Total 110 / 110 750 / 750 Output Total 0 / 0 3000 / 3000 Balance 110 / 110 -2250 / -2250 Weight 271 lb 2.697 oz 278 lb 14.156 oz Intake: IV 110 / 110 Calcium Chloride Inj 1 GM In 110 / 110 D5W Inj 100 ML @ 110 mls/hr IV. SIG ONCE ONE Rx#:[id number] Oral 0 / 0 750 / 750 Output: Urine 0 / 0 Hemodialysis Amount 3000 / 3000 Other: # Voids 0 Date of Last Bowel Movement 04/11/18 # Bowel Movements 0 0 Weight On Admission 271 lb 2.697 oz Narrative: GENERAL: Well-developed well-nourished. In no acute distress. NECK: No carotid bruits. No JVD. CARDIOVASCULAR: Regular rate and rhythm. No murmur appreciated. RESPIRATORY: No accessory muscle use. Clear to auscultation. Breath sounds equal bilaterally. MUSCULOSKELETAL: No clubbing or cyanosis. No edema. NEUROLOGICAL: Awake and alert. Normal speech. Results 04/11/18 10:37 04/11/18 10:37 Cardiac Enzymes 04/11/18 04/11/18 04/11/18 Range/Units 10:37 10:37 16:11 AST 22 (15-37) U/L Troponin I 0.07 H 0.12 H (0.02-0.05) ng/mL B-Natriuretic Peptide 1680 H (0-100) pg/mL Coagulation 04/11/18 04/11/18 Range/Units 10:37 10:37 PT 12.1 H (9.8-11.6) sec APTT 24.5 (23.4-31.7) sec B-Natriuretic Peptide 1680 H (0-100) pg/mL CBC 04/11/18 Range/Units 10:37 WBC 17.0 H (4.0-11.0) th/mm3 RBC 3.37 L (4.50-5.90) mil/mm3 Hgb 9.6 L (13.0-17.0) gm/dL Hct 30.9 L (39.0-51.0) % Plt Count 255 (150-450) th/mm3 Neut # (Auto) 14.5 H (1.8-7.7) th/mm3 Lymph # (Auto) 1.3 (1.0-4.8) th/mm3 [place] # (Auto) 0.8 (0.0-0.9) th/mm3 Eos # (Auto) 0.3 (0.0-0.4) th/mm3 Baso # (Auto) 0.1 (0.0-0.2) th/mm3 Comprehensive Metabolic Panel 04/11/18 Range/Units 10:37 Sodium 134 L (136-145) meq/L Potassium 5.2 H (3.5-5.1) meq/L Chloride 99 (98-107) meq/L Carbon Dioxide 17.5 L (21.0-32.0) meq/L BUN 106 H (7-18) mg/dL Creatinine 12.05 H* (0.60-1.30) mg/dL Calcium 6.2 L* (8.5-10.1) mg/dL AST 22 (15-37) U/L ALT 25 (12-78) U/L Alkaline Phosphatase 151 H (45-117) U/L Total Protein 7.4 (6.4-8.2) g/dL Albumin 3.3 L (3.4-5.0) g/dL Intake and Output 04/11/18 04/12/18 04/12/18 22:59 06:59 14:59 Intake Total 0 / 0 750 / 750 Output Total 3000 / 3000 Balance -3000 / -3000 750 / 750 Intake: Oral 0 / 0 750 / 750 Output: Urine 0 / 0 Hemodialysis Amount 3000 / 3000 Other: # Voids 0 Date of Last Bowel Movement 04/11/18 04/11/18 # Bowel Movements 0 0 Weight 278 lb 14.156 oz - Imaging and Cardiology Imaging: Impressions Chest X-Ray 04/11/18 10:26 CONCLUSION: 1. Compensated cardiomegaly. 2. Lungs are clear. 3. Postsurgical changes with findings of prior CABG. Assessment and Plan - Plan 57-year-old male with CAD s/p 6v CABG 2003 and PCI to LCx 2015 w05/18 grafts patent on LHC, ESRD on home HD 4x per week, HTN, HLD, DM. The patient was at [place] getting colonoscopy done 04/11/18 and had reported asystolic cardiac arrest. Asystolic arrest with chest pain/shortness of breath: No ischemic EKG changes and recent complaints of typical angina, keep n.p.o. for possible LHC today. Pleuritic chest discomfort, possibly due to compressions, however with no noted noted VT/VF, check CTA to eval for PE. Discussed risk/benefits/alternatives of further workup/treatment with the patient who is agreeable to proceed. CAD: Resume home aspirin and atorvastatin 40 mg. ESRD on HD: Nephrology on board. Patient reports she is nearly anuric at baseline. Patient understands that he may have worsening renal function/urine output with contrast studies as above, verbalizes understanding and agreeable to proceed. Recommend dialysis after contrast studies. Discussed Condition With: Patient, Dr. Arredondo - Attending Attestation details of the case reviewed chart reviewed, no strips available. asystolic arrest during anesthesia for colonoscopy atypical symptoms of chest pain recent negative lexiscan late 2017 troponin borderline elevated in setting of cardiomyopathy and ESRD plan for CTA chest today r/o pulmonary embolism less likely to be related to ischemic episode, EKG unremarkable, troponin unremarkable, VT/VF more common for ischemic etiology titrate isosorbide echocardiogram with mildly reduced EF and mild-mod valve dz will discuss with EP, given circumstances, I don't think he would be candidate for PPM or EP Study no plans for LHC for now. old films reviewed. diffuse disease.
[2018-04-12] MEDS: Pantoprazole Inj 40 MG Vial IV.PUSH SCH (08:47)
[2018-04-12] MEDS: predniSONE 5 MG Tablet PO SCH (08:48)
[2018-04-12] MEDS: Senna/Docusate Sodium 8.6/50 MG Tablet PO SCH ×2 (08:49→21:38)
--- NOTE | 2018-04-12 14:42 | P.PNNP ---
Physical Exam Vital signs: Vital Signs 04/11/18 14:51 04/11/18 14:52 04/11/18 16:00 Pulse Rate 74 76 Respiratory Rate 16 17 Pulse Oximetry 97 04/11/18 18:00 04/11/18 19:52 04/11/18 20:00 Pulse Rate 78 111 H 107 H Respiratory Rate 20 Pulse Oximetry 96 95 04/11/18 20:16 04/11/18 22:00 04/11/18 23:24 Pulse Rate 111 H 115 H Respiratory Rate 35 H 20 Pulse Oximetry 04/11/18 23:37 04/12/18 00:00 04/12/18 01:16 Pulse Rate 113 H Respiratory Rate 35 H 19 Pulse Oximetry 04/12/18 01:56 04/12/18 02:00 04/12/18 03:16 Pulse Rate 110 H 115 H Respiratory Rate 22 16 Pulse Oximetry 04/12/18 04:00 04/12/18 06:00 04/12/18 07:45 Pulse Rate 113 H 80 81 Respiratory Rate 15 18 Pulse Oximetry 95 04/12/18 08:00 04/12/18 10:00 04/12/18 11:32 Pulse Rate 82 86 82 Respiratory Rate 20 Pulse Oximetry 95 04/12/18 12:00 Pulse Rate 81 Respiratory Rate Pulse Oximetry Intake & Output 04/11/18 04/12/18 04/12/18 18:59 06:59 18:59 Intake Total 110 / 110 750 / 750 Output Total 0 / 0 3000 / 3000 Balance 110 / 110 -2250 / -2250 Weight 123 kg 126.5 kg Intake: IV 110 / 110 Calcium Chloride Inj 1 GM In 110 / 110 D5W Inj 100 ML @ 110 mls/hr IV. SIG ONCE ONE Rx#:[id number] Oral 0 / 0 750 / 750 Output: Urine 0 / 0 Hemodialysis Amount 3000 / 3000 Other: # Voids 0 Date of Last Bowel Movement 04/11/18 04/11/18 # Bowel Movements 0 0 Weight On Admission 123 kg Narrative: GENERAL: Well-developed well-nourished. In no acute distress. NECK: No carotid bruits. No JVD. CARDIOVASCULAR: Regular rate and rhythm. No murmur appreciated. RESPIRATORY: No accessory muscle use. Clear to auscultation. Breath sounds equal bilaterally. MUSCULOSKELETAL: No clubbing or cyanosis. No edema. NEUROLOGICAL: Awake and alert. Normal speech. Assessment and Plan - Assessment (1) End stage renal disease Code(s): N18.6 - End stage renal disease Status: Acute Plan: Patient is going to have CTA possible heart catheterization today, he is scheduled to undergo hemodialysis earlier in the morning and is on hemodialysis , he can wait till morning Patient has ESRD and there is no benefit of immediate dialysis unless he received on large volume of dye. We will continue to monitor the situation Discussed with patient (2) Hypertension Code(s): I10 - Essential (primary) hypertension Status: Acute Qualifiers: Hypertension type: essential hypertension Qualified Code(s): I10 - Essential (primary) hypertension Plan: Continue to monitor (3) Diabetes Code(s): E11.9 - Type 2 diabetes mellitus without complications Status: Acute Qualifiers: Diabetes mellitus exterminator insulin use: unspecified exterminator insulin use status Plan: Monitor blood glucose, follow blood work (4) Cardiopulmonary arrest with successful resuscitation Code(s): I46.9 - Cardiac arrest, cause unspecified Status: Acute Plan: Cardiology consulted
--- NOTE | 2018-04-12 15:32 | CT ---
EXAM DATE: 04/12/2018 3:18 PM EST AGE/SEX: 57 years / Male INDICATIONS: Shortness of breath CLINICAL DATA: This is the patient's initial encounter. Patient reports that signs and symptoms have been present for 1 day and indicates a pain score of 5/10. MEDICAL/SURGICAL HISTORY: Renal failure, chronic. . Kidney trans plant RADIATION DOSE: 20.18 CTDI (mGy) COMPARISON: [facility], CHEST 1V SINGLE AP, 04/11/2018. . TECHNIQUE: Volumetric scanning was performed using a multi-row detector CT scanner during bolus infu luis carlos of 72 ml Omnipaque 350 (iohexol) nonionic water-soluble contrast as a single exam dose. The patti a was post processed with a variety of visualization algorithms including full volume maximum intensi ty projection and sliding thin slab reformation. Using automated exposure control and adjustment of the mA and/or kV according to patient size, radiation dose was kept as low as reasonably achievable t o obtain optimal diagnostic quality images. DICOM format image data is available electronically for review and comparison. FINDINGS: Pulmonary Arteries: No filling defects are seen in the pulmonary arteries through the segmental vess els. The main pulmonary artery is normal in diameter. Lung: Mild airspace consolidation adjacent pleural effusions at the lung bases. Pleura: Trace bilateral pleural effusions, right > left. Mediastinum: Postsurgical features of prior cardiac surgery. Prominent coronary artery calcification s. Mild cardiomegaly. Osseous Structures: No abnormal focal lytic or blastic bony lesions. Other: This is upper abdomen demonstrates trace perihepatic free fluid. CONCLUSION: 1. No CT evidence for pulmonary artery embolism as questioned. 2. Cardiomegaly with trace bilateral pleural effusions and mild airspace consolidation at the lung b ases which may reflect compressive atelectasis. Differential considerations include aspiration in the appropriate clinical setting. 3. Trace perihepatic ascites fluid. Electronically signed by: Cohco Quigley MD Board Certified Radiologist 04/12/2018 3:31 PM EST
--- NOTE | 2018-04-12 19:23 | P.PNIM ---
Subjective Interval history: No new complaints. Pt denies chest pain, palpitations, or SOB. Pt is tolerating PO intake without n/v/d. Physical Exam Vital signs: Last Vital Signs Temp 97.4 F L 04/11/18 13:40 Pulse 85 04/12/18 18:29 Resp 16 04/12/18 18:29 BP 122/69 04/11/18 13:40 Pulse Ox 95 04/12/18 08:00 Narrative: GENERAL: This is a well-nourished, well-developed patient, in no apparent distress. CARDIOVASCULAR: Regular rate and rhythm without murmurs, gallops, or rubs. RESPIRATORY: Clear to auscultation. Breath sounds equal bilaterally. No wheezes , rales, or rhonchi. GASTROINTESTINAL: Abdomen soft, non-tender, nondistended. Normal active bowel sounds MUSCULOSKELETAL: Extremities without clubbing, cyanosis, or edema. NEURO: Alert & Oriented x4 to person, place, time, situation. Moves all ext x4 Results Labs CBC & Chem 7: 04/13/18 02:57 04/11/18 10:37 Assessment and Plan Assessment (1) Cardiopulmonary arrest with successful resuscitation: Code(s): I46.9 - Cardiac arrest, cause unspecified Status: Acute (2) End stage renal disease: Code(s): N18.6 - End stage renal disease Status: Acute (3) Hypertension: Code(s): I10 - Essential (primary) hypertension Status: Acute (4) Diabetes: Code(s): E11.9 - Type 2 diabetes mellitus without complications Status: Acute Plan: 1) Cardiopulmonary Arrest with successful resuscitation - tele: NSR - comgmt with Cardiology - No LHC/EPS at this time - CTA (04/12) --> No PE - SQ heparin, ASA, lipitor, imdur - supportive care - will review case with Cardiology 2) DM - SSI 3) ESRD - continue HD M,W,F per Nephrology Progress Note: Quality VTE Deep Vein Thrombosis/Pulmonary Embolism Present on Admission: No _ (1) Hypertension Qualifiers: Hypertension type: essential hypertension Qualified Code(s): I10 - Essential (primary) hypertension (2) Diabetes Qualifiers: Diabetes mellitus type: Diabetes mellitus group home insulin use: unspecified group home insulin use status Diabetes mellitus complication status : Diabetes mellitus complication detail: Diabetic retinopathy severity: Proliferative retinopathy type: Diabetes mellitus macular edema: Laterality : Chronic kidney disease stage:
[2018-04-13] MEDS: Insulin NovoLOG Aspart Correctional Sugar Inj SQ SCH ×4 (00:55→17:44)
[2018-04-13] MEDS: Heparin - SQ 10,000 UNITS/ML Vial SQ SCH ×2 (01:34→12:51)
[2018-04-13 03:29] LABS: Baso % (Auto) 0.2 % (0.0-2.0); Eos # (Auto) 0.2 th/mm3 (0.0-0.4); Eos % (Auto) 1.7 % (0.0-4.0); Hematocrit 28.6 % (39.0-51.0); Hemoglobin 9.1 gm/dL (13.0-17.0); Lymph # (Auto) 0.9 th/mm3 (1.0-4.8); Lymph % (Auto) 8.4 % (9.0-44.0); Mean Corpuscular HGB Conc 31.9 % (32.0-36.0); Mean Corpuscular Hemoglobin 28.1 pg (27.0-34.0); Mean Corpuscular Volume 87.9 fL (80.0-100.0); Mono # (Auto) 1.1 th/mm3 (0.0-0.9); Mono % (Auto) 10.6 % (0.0-8.0); Neut # (Auto) 8.4 th/mm3 (1.8-7.7); Neut % (Auto) 79.1 % (16.0-70.0); Platelet Count 194 th/mm3 (150-450); Red Blood Count 3.25 mil/mm3 (4.50-5.90); Red Cell Distribution Width 17.5 % (11.6-17.2); White Blood Count 10.6 th/mm3 (4.0-11.0)
[2018-04-13] MEDS: Chlorhexidine Gluconate 2% 1 Pack (2 Cloths) TOPICAL SCH (04:24)
[2018-04-13] MEDS ORDERED: Isosorbide Mononitrate 60 MG ER 24HR Tablet (Imdur) PO SCH (07:00)
[2018-04-13] MEDS: predniSONE 5 MG Tablet PO SCH (08:06)
[2018-04-13] MEDS: Senna/Docusate Sodium 8.6/50 MG Tablet PO SCH ×2 (08:06→21:44)
[2018-04-13] MEDS: Pantoprazole Inj 40 MG Vial IV.PUSH SCH (08:06)
--- NOTE | 2018-04-13 08:15 | P.PNCA ---
Subjective Interval history: Patient feels worsening chest discomfort, shortness of breath, and left arm tingling similar to previous angina today. Telemetry with 10 beats NSVT noted. Medications and Allergies Allergies Allergy/AdvReac Type Severity Reaction Status Date / Time No Known Allergies Allergy Verified 04/11/18 10:33 Home Medications Medication Instructions Recorded Confirmed Type furosemide 80 mg PO DAILY 11/10/17 04/11/18 History insulin glargine [Lantus U-100 25 unit SUB-Q HS 11/10/17 04/11/18 History Insulin] prednisone 5 mg PO DAILY 11/10/17 04/11/18 History sevelamer carbonate [Renvela] 1,600 mg PO TIDAC 11/10/17 04/11/18 History albuterol sulfate [Ventolin HFA] 2 puff INHALATION Q4-6H PRN 04/11/18 04/11/18 History Active Medications: Active Medications Hydrocodone Bitart/Acetaminophen ([place] 10/325) 1 tab PO Q6H PRN PRN Reason: PAIN SCALE 6 TO 10 Last Admin: 04/13/18 06:22 Dose: 1 tab Albuterol (Duoneb Neb (Chel)) 1 ampul NEB Q4HR NEB CHEL Last Admin: 04/13/18 03:46 Dose: 1 ampul Albuterol (Duoneb Neb (Prn)) 1 ampul NEB Q2HR NEB PRN PRN Reason: WHEEZING Aspirin (Ecotrin) 81 mg PO DAILY [facility] Last Admin: 04/13/18 08:06 Dose: 81 mg Atorvastatin Calcium (Lipitor) 40 mg PO [facility] Last Admin: 04/12/18 21:37 Dose: 40 mg Bisacodyl (Dulcolax Supp) 10 mg RECTAL DAILY PRN PRN Reason: SEVERE CONSITIPATION Chlorhexidine Gluconate (Chlorhexidine 2% Cloth) 3 pack TOPICAL DAILY@0400 [facility] Stop: 04/17/18 03:59 Last Admin: 04/13/18 04:24 Dose: Not Given Chlorhexidine Gluconate (Chlorhexidine 2% Cloth) 3 pack TOPICAL DAILY@0400 PRN PRN Reason: Extra cloth needed Stop: 04/17/18 03:59 Clonidine HCl (Catapres) 0.1 mg PO UNSCH PRN PRN Reason: SEE LABEL COMMENTS Dextrose (D50w Vial) 50 ml IV.PUSH UNSCH PRN PRN Reason: PER HYPOGLYCEMIA PROTOCOL Diphenhydramine HCl (Benadryl) 25 mg PO UNSCH PRN PRN Reason: SEE LABEL COMMENTS Epoetin Gian (Epogen Inj) 4,000 unit IV.PUSH UNSCH PRN PRN Reason: SEE LABEL COMMENTS Last Admin: 04/11/18 16:22 Dose: 4,000 unit Gelatin (Gelfoam 12 Mm/7 Mm Topical) 1 foam TOPICAL PRN PRN PRN Reason: help stop bleeding from site Gentamicin Sulfate (Gentamicin Inj) 20 mg OTHER WITH DIALYSIS PRN PRN Reason: Dwell Gentamycin Lock Glucagon (Glucagon Inj) 1 mg OTHER UNSCH PRN PRN Reason: for Hypoglycemia Protocol Heparin Sodium (Porcine) (Heparin Inj) 5,000 units SQ Q12H [facility] Last Admin: 04/13/18 01:34 Dose: 5,000 units Heparin Sodium (Porcine) (Heparin Inj) 8,000 units OTHER WITH DIALYSIS PRN PRN Reason: for machine prime Heparin Sodium (Porcine) (Heparin Inj) 1,000 units OTHER WITH DIALYSIS PRN PRN Reason: Dwell Heparin to Fill Catheter Albumin Human (Flexbumin 25% Inj) 100 mls @ 60 mls/hr IV.SIG WITH DIALYSIS PRN PRN Reason: hypotension / volume replace Sodium Chloride (Ns Inj) 1,000 mls @ 0 mls/hr OTHER .Q0M PRN PRN Reason: for prime and rinse back Sodium Chloride (Ns Inj) 1,000 mls @ 200 mls/hr OTHER .Q5H PRN PRN Reason: for dialyzer flush PRN Sodium Chloride (Ns Inj) 1,000 mls @ 0 mls/hr IV.CONT .Q0M PRN PRN Reason: hypotension / volume replace Insulin Aspart (Novolog Insulin Correctional Sugar Inj) 0 unit SQ Q6HR CHEL; Protocol Last Admin: 04/13/18 06:22 Dose: 1 unit Isosorbide Mononitrate (Imdur) 60 mg PO DAILY@0700 [facility] Last Admin: 04/13/18 06:16 Dose: 60 mg Lactulose (Lactulose Liq) 30 ml PO DAILY PRN PRN Reason: SEVERE CONSITIPATION Mannitol (Mannitol Inj) 12.5 gm IV.PUSH UNSCH PRN PRN Reason: hypotension / volume replace Nitroglycerin (Nitrostat Sl) 0.4 mg SL Q5M PRN PRN Reason: CHEST PAIN Ondansetron HCl (Zofran Inj) 4 mg IV.PUSH UNSCH PRN PRN Reason: NAUSEA OR VOMITING Pantoprazole Sodium (Protonix Inj) 40 mg IV.PUSH DAILY [facility] Last Admin: 04/13/18 08:06 Dose: 40 mg Prednisone (Deltasone) 5 mg PO DAILY [facility] Last Admin: 04/13/18 08:06 Dose: 5 mg Senna/Docusate Sodium (Maribel-Colace) 1 tab PO BID [facility] Last Admin: 04/13/18 08:06 Dose: 1 tab Sennosides (Senokot) 17.2 mg PO Q12H PRN PRN Reason: Moderate Constipation Sodium Chloride (Ns Flush) 2 ml IV.FLUSH UNSCH PRN PRN Reason: FLUSH AFTER USING IV ACCESS Sodium Chloride (Ns Flush) 2 ml IV.FLUSH BID [facility] Last Admin: 04/13/18 08:07 Dose: 2 ml Sodium Chloride (Ns Flush) 5 ml IV.FLUSH PRN PRN PRN Reason: flush each lumen during HD Physical Exam Vital signs: Vital Signs 04/12/18 10:00 04/12/18 11:32 04/12/18 12:00 Pulse Rate 86 82 81 Respiratory Rate 20 Pulse Oximetry 04/12/18 14:00 04/12/18 14:32 04/12/18 16:00 Pulse Rate 84 81 82 Respiratory Rate 16 Pulse Oximetry 04/12/18 18:00 04/12/18 18:29 04/12/18 20:00 Pulse Rate 87 85 83 Respiratory Rate 16 Pulse Oximetry 92 L 04/12/18 22:00 04/12/18 23:42 04/13/18 00:00 Pulse Rate 84 83 82 Respiratory Rate 13 Pulse Oximetry 04/13/18 00:24 04/13/18 01:37 04/13/18 02:00 Pulse Rate 80 Respiratory Rate 24 12 Pulse Oximetry 04/13/18 03:47 04/13/18 04:00 04/13/18 06:00 Pulse Rate 79 75 83 Respiratory Rate 17 14 Pulse Oximetry 04/13/18 06:22 04/13/18 07:29 Pulse Rate Respiratory Rate 28 H 21 Pulse Oximetry Intake & Output 04/12/18 04/13/18 04/13/18 18:59 06:59 18:59 Intake Total 720 / 720 480 / 480 Balance 720 / 720 480 / 480 Weight 281 lb 1.43 oz Intake: Oral 720 / 720 480 / 480 Other: # Voids 0 Date of Last Bowel Movement 04/11/18 04/11/18 # Bowel Movements 0 Narrative: GENERAL: Well-developed well-nourished. In no acute distress. NECK: No carotid bruits. No JVD. CARDIOVASCULAR: Regular rate and rhythm. No murmur appreciated. RESPIRATORY: No accessory muscle use. Clear to auscultation. Breath sounds equal bilaterally. MUSCULOSKELETAL: No clubbing or cyanosis. No edema. NEUROLOGICAL: Awake and alert. Normal speech. Results 04/13/18 02:57 04/11/18 10:37 Cardiac Enzymes 04/11/18 04/11/18 04/11/18 Range/Units 10:37 10:37 16:11 AST 22 (15-37) U/L Troponin I 0.07 H 0.12 H (0.02-0.05) ng/mL B-Natriuretic Peptide 1680 H (0-100) pg/mL 04/12/18 Range/Units 06:56 AST (15-37) U/L Troponin I 0.34 H (0.02-0.05) ng/mL B-Natriuretic Peptide (0-100) pg/mL Coagulation 04/11/18 04/11/18 Range/Units 10:37 10:37 PT 12.1 H (9.8-11.6) sec APTT 24.5 (23.4-31.7) sec B-Natriuretic Peptide 1680 H (0-100) pg/mL CBC 04/11/18 04/13/18 Range/Units 10:37 02:57 WBC 17.0 H 10.6 (4.0-11.0) th/mm3 RBC 3.37 L 3.25 L (4.50-5.90) mil/mm3 Hgb 9.6 L 9.1 L (13.0-17.0) gm/dL Hct 30.9 L 28.6 L (39.0-51.0) % Plt Count 255 194 (150-450) th/mm3 Neut # (Auto) 14.5 H 8.4 H (1.8-7.7) th/mm3 Lymph # (Auto) 1.3 0.9 L (1.0-4.8) th/mm3 [place] # (Auto) 0.8 1.1 H (0.0-0.9) th/mm3 Eos # (Auto) 0.3 0.2 (0.0-0.4) th/mm3 Baso # (Auto) 0.1 0.0 (0.0-0.2) th/mm3 Comprehensive Metabolic Panel 04/11/18 Range/Units 10:37 Sodium 134 L (136-145) meq/L Potassium 5.2 H (3.5-5.1) meq/L Chloride 99 (98-107) meq/L Carbon Dioxide 17.5 L (21.0-32.0) meq/L BUN 106 H (7-18) mg/dL Creatinine 12.05 H* (0.60-1.30) mg/dL Calcium 6.2 L* (8.5-10.1) mg/dL AST 22 (15-37) U/L ALT 25 (12-78) U/L Alkaline Phosphatase 151 H (45-117) U/L Total Protein 7.4 (6.4-8.2) g/dL Albumin 3.3 L (3.4-5.0) g/dL Intake and Output 04/12/18 04/13/18 04/13/18 22:59 06:59 14:59 Intake Total 720 / 720 480 / 480 Balance 720 / 720 480 / 480 Intake: Oral 720 / 720 480 / 480 Other: # Voids 0 Date of Last Bowel Movement 04/11/18 04/11/18 # Bowel Movements 0 Weight 281 lb 1.43 oz - Imaging and Cardiology Imaging: Impressions Chest X-Ray 04/11/18 10:26 CONCLUSION: 1. Compensated cardiomegaly. 2. Lungs are clear. 3. Postsurgical changes with findings of prior CABG. Chest CTA 04/12/18 00:00 CONCLUSION: 1. No CT evidence for pulmonary artery embolism as questioned. 2. Cardiomegaly with trace bilateral pleural effusions and mild airspace consolidation at the lung bases which may reflect compressive atelectasis. Differential considerations include aspiration in the appropriate clinical setting. 3. Trace perihepatic ascites fluid. Assessment and Plan - Plan 57-year-old male with CAD s/p 6v CABG 2003 and PCI to LCx 2016 w/ 3/6 grafts patent on LHC, ESRD on home HD 4x per week, HTN, HLD, DM. The patient was at [place] getting colonoscopy done 04/11/18 and had reported asystolic cardiac arrest. Asystolic arrest during anesthesia for colonoscopy: No strips available, however no noted VT/VF. Minimal troponin elevation in the setting of ESRD. Less likely to be related to ischemic episode, EKG unremarkable, troponin unremarkable, VT/VF more common for ischemic etiology. With NSVT noted on monitor, will consult EP. Chest pain/shortness of breath: CTA negative for PE. Echo with EF 50-55%, mild valve disease. No plans for LHC for now; old films reviewed, diffuse disease; started Imdur 60 mg. CAD: Continue home aspirin and atorvastatin 40 mg. ESRD on HD: Nephrology on board. Discussed Condition With: Patient with RN at bedside, Dr. Arredondo - Attending Attestation cardiac arrest suspect due to anesthesia no further arrhtyhmias troponin elevation due to ESRD and chest compressions no plans for LHC monitor overnight if no issues, possible discharge tomorrow with one week event monitor long acting nitrate
--- NOTE | 2018-04-13 10:05 | P.DCO ---
Physical Therapy Order: Evaluate and treat, Improve ambulation and Strength and gait training Home Health Nursing Order: Medical education, Signs/symptoms of disease process, Medication education-adverse effect and Nursing assessment with vital signs Case Management Consult Case Management Consult-Home Health: Yes I have seen patient Donnie Salguero on 04/13/18. My clinical findings support the need for the requested home health care services because: Limited mobility due to disease progression, Deconditioned with increased weakness, Medication compliance is questionable, Limited ability to care for self and Need for psychosocial assistance I certify that my clinical findings support that this patient is homebound because: Unsteady gait/balance, Unsafe to leave home unassisted, Need for psychosocial assistance and Unable to use public transportation
--- NOTE | 2018-04-13 10:18 | P.PNIM ---
Subjective Interval history: Pt has NO new complaints. No chest pain, palpitations, or SOB. Physical Exam Vital signs: Last Vital Signs Temp 98.0 F 04/13/18 08:00 Pulse 87 04/13/18 10:00 Resp 28 H 04/13/18 10:00 BP 166/77 H 04/13/18 10:00 Pulse Ox 90 L 04/13/18 10:00 Narrative: GENERAL: This is a well-nourished, well-developed patient, in no apparent distress. CARDIOVASCULAR: Regular rate and rhythm without murmurs, gallops, or rubs. RESPIRATORY: Clear to auscultation. Breath sounds equal bilaterally. No wheezes , rales, or rhonchi. GASTROINTESTINAL: Abdomen soft, non-tender, nondistended. Normal active bowel sounds MUSCULOSKELETAL: Extremities without clubbing, cyanosis, or edema. NEURO: Alert & Oriented x4 to person, place, time, situation. Moves all ext x4 Results Labs CBC & Chem 7: 04/13/18 02:57 04/11/18 10:37 Assessment and Plan Assessment (1) Cardiopulmonary arrest with successful resuscitation: Code(s): I46.9 - Cardiac arrest, cause unspecified Status: Acute (2) End stage renal disease: Code(s): N18.6 - End stage renal disease Status: Acute (3) Hypertension: Code(s): I10 - Essential (primary) hypertension Status: Acute (4) Diabetes: Code(s): E11.9 - Type 2 diabetes mellitus without complications Status: Acute Plan: 1) Cardiopulmonary Arrest with successful resuscitation - tele: NSR - comgmt with Cardiology - No LHC/EPS at this time - event likely d/t anesthesia for colonoscopy - CTA (04/12) --> No PE - SQ heparin, ASA, lipitor, imdur - supportive care - Case d/w Cardiology, Dr. Arredondo (04/13) - transfer to medical floor - anticipate d/c to home 04/14 with [facility] - 7 day event monior outpt. 2) DM - SSI 3) ESRD - continue HD M,W,F per Nephrology Progress Note: Quality VTE Deep Vein Thrombosis/Pulmonary Embolism Present on Admission: No _ (1) Diabetes Qualifiers: Chronic kidney disease stage: Diabetes mellitus complication detail: Diabetes mellitus complication status: Diabetes mellitus fci insulin use : unspecified fci insulin use status Diabetes mellitus macular edema: Diabetes mellitus type: Diabetic retinopathy severity: Laterality: Proliferative retinopathy type: (2) Hypertension Qualifiers: Hypertension type: essential hypertension Qualified Code(s): I10 - Essential (primary) hypertension
--- NOTE | 2018-04-13 11:54 | P.PNNP ---
Subjective Interval history: Patient had hemodialysis earlier gets short of breath on movement Physical Exam Vital signs: Vital Signs 04/12/18 12:00 04/12/18 13:00 04/12/18 14:00 Temperature Pulse Rate 81 84 Respiratory Rate 26 H Blood Pressure 158/73 H 173/70 H Pulse Oximetry 92 L 04/12/18 14:32 04/12/18 15:24 04/12/18 16:00 Temperature Pulse Rate 81 83 84 Respiratory Rate 16 22 Blood Pressure Pulse Oximetry 94 L 04/12/18 17:00 04/12/18 17:36 04/12/18 18:00 Temperature Pulse Rate 90 89 87 Respiratory Rate 31 H 33 H 35 H Blood Pressure 161/85 H Pulse Oximetry 92 L 92 L 92 L 04/12/18 18:01 04/12/18 18:29 04/12/18 18:44 Temperature Pulse Rate 87 85 85 Respiratory Rate 32 H 16 21 Blood Pressure 177/72 H 154/67 H Pulse Oximetry 92 L 92 L 04/12/18 19:00 04/12/18 20:00 04/12/18 21:00 Temperature Pulse Rate 86 83 86 Respiratory Rate 30 H 40 H 50 H Blood Pressure 156/67 H 143/63 H Pulse Oximetry 93 L 92 L 91 L 04/12/18 21:02 04/12/18 22:00 04/12/18 23:00 Temperature Pulse Rate 88 84 86 Respiratory Rate 29 H 31 H 28 H Blood Pressure 127/59 L 137/70 Pulse Oximetry 91 L 92 L 92 L 04/12/18 23:01 04/12/18 23:05 04/12/18 23:42 Temperature Pulse Rate 85 87 83 Respiratory Rate 29 H 22 13 Blood Pressure 193/79 H 152/56 H Pulse Oximetry 93 L 93 L 04/13/18 00:00 04/13/18 00:24 04/13/18 01:00 Temperature Pulse Rate 82 79 Respiratory Rate 12 24 12 Blood Pressure 141/63 H 123/57 L Pulse Oximetry 90 L 92 L 04/13/18 01:37 04/13/18 02:00 04/13/18 03:00 Temperature Pulse Rate 80 80 Respiratory Rate 12 14 14 Blood Pressure 124/70 158/69 H Pulse Oximetry 91 L 90 L 04/13/18 03:47 04/13/18 04:00 04/13/18 04:01 Temperature Pulse Rate 79 76 79 Respiratory Rate 17 19 19 Blood Pressure 136/63 Pulse Oximetry 91 L 92 L 04/13/18 05:00 04/13/18 06:00 04/13/18 06:22 Temperature Pulse Rate 85 83 Respiratory Rate 33 H 25 H 28 H Blood Pressure 148/65 H 141/66 H Pulse Oximetry 90 L 92 L 04/13/18 07:00 04/13/18 07:29 04/13/18 07:45 Temperature Pulse Rate 81 81 Respiratory Rate 31 H 21 24 Blood Pressure 147/68 H 147/65 H Pulse Oximetry 92 L 92 L 04/13/18 08:00 04/13/18 08:15 04/13/18 08:30 Temperature 98.0 F Pulse Rate 82 84 82 Respiratory Rate 23 36 H 27 H Blood Pressure 149/69 H 169/74 H 159/61 H Pulse Oximetry 94 L 91 L 93 L 04/13/18 08:45 04/13/18 09:00 04/13/18 09:15 Temperature Pulse Rate 84 91 H 84 Respiratory Rate 19 25 H 25 H Blood Pressure 161/72 H 170/74 H 158/72 H Pulse Oximetry 91 L 91 L 92 L 04/13/18 09:30 04/13/18 09:45 04/13/18 09:46 Temperature Pulse Rate 87 86 Respiratory Rate 28 H 28 H Blood Pressure 158/65 H 162/71 H Pulse Oximetry 92 L 92 L 92 L 04/13/18 10:00 Temperature Pulse Rate 87 Respiratory Rate 28 H Blood Pressure 166/77 H Pulse Oximetry 90 L Intake & Output 04/12/18 04/13/18 04/13/18 18:59 06:59 18:59 Intake Total 720 / 720 480 / 480 Output Total 2500 / 2500 Balance 720 / 720 480 / 480 -2500 / -2500 Weight 127.5 kg Intake: Oral 720 / 720 480 / 480 Output: Hemodialysis Amount 2500 / 2500 Other: # Voids 0 Date of Last Bowel Movement 04/11/18 04/11/18 # Bowel Movements 0 Narrative: GENERAL: Well-developed well-nourished. In no acute distress. NECK: No carotid bruits. No JVD. CARDIOVASCULAR: Regular rate and rhythm. No murmur appreciated. RESPIRATORY: No accessory muscle use. Clear to auscultation. Breath sounds equal bilaterally. MUSCULOSKELETAL: No clubbing or cyanosis. No edema. NEUROLOGICAL: Awake and alert. Normal speech. Assessment and Plan - Assessment (1) End stage renal disease Code(s): N18.6 - End stage renal disease Status: Acute Plan: Patient had CTA no pulmonary embolism, bilateral pleural effusion and ascites seen Evidence of volume of volume overload 2.5 L removed Cardiology is following Sensipar and PhosLo will be started Discussed with patient (2) Hypertension Code(s): I10 - Essential (primary) hypertension Status: Acute Qualifiers: Hypertension type: essential hypertension Qualified Code(s): I10 - Essential (primary) hypertension Plan: Continue to monitor (3) Diabetes Code(s): E11.9 - Type 2 diabetes mellitus without complications Status: Acute Qualifiers: Diabetes mellitus mcfp insulin use: unspecified mcfp insulin use status Plan: Monitor blood glucose, follow blood work (4) Cardiopulmonary arrest with successful resuscitation Code(s): I46.9 - Cardiac arrest, cause unspecified Status: Acute Plan: Cardiology consulted
[2018-04-13] MEDS: Calcium Acetate 667 MG Capsule PO SCH ×2 (12:51→17:44)
[2018-04-14] MEDS: Heparin - SQ 10,000 UNITS/ML Vial SQ SCH ×2 (00:28→13:31)
[2018-04-14] MEDS: Insulin NovoLOG Aspart Correctional Sugar Inj SQ SCH ×4 (00:40→17:12)
[2018-04-14] MEDS: Chlorhexidine Gluconate 2% 1 Pack (2 Cloths) TOPICAL SCH (03:19)
[2018-04-14] MEDS: Isosorbide Mononitrate 60 MG ER 24HR Tablet (Imdur) PO SCH (06:27)
--- NOTE | 2018-04-14 07:57 | P.PNCA ---
Subjective Interval history: Patient still reports he feels like he cannot catch his breath and is having chest discomfort with breathing. He reports chest discomfort has been 6/10 in severity, getting as needed sublingual nitroglycerin which improved his discomfort to 4/10. Telemetry with no significant arrhythmia noted overnight. Medications and Allergies Allergies Allergy/AdvReac Type Severity Reaction Status Date / Time No Known Allergies Allergy Verified 04/11/18 10:33 Home Medications Medication Instructions Recorded Confirmed Type furosemide 80 mg PO DAILY 11/10/17 04/11/18 History insulin glargine [Lantus U-100 25 unit SUB-Q HS 11/10/17 04/11/18 History Insulin] prednisone 5 mg PO DAILY 11/10/17 04/11/18 History sevelamer carbonate [Renvela] 1,600 mg PO TIDAC 11/10/17 04/11/18 History albuterol sulfate [Ventolin HFA] 2 puff INHALATION Q4-6H PRN 04/11/18 04/11/18 History Active Medications: Active Medications Hydrocodone Bitart/Acetaminophen ([place] 10/325) 1 tab PO Q6H PRN PRN Reason: PAIN SCALE 6 TO 10 Last Admin: 04/14/18 06:27 Dose: 1 tab Albuterol (Duoneb Neb (Prn)) 1 ampul NEB Q2HR NEB PRN PRN Reason: WHEEZING Last Admin: 04/13/18 15:50 Dose: 1 ampul Albuterol (Duoneb Neb (Chel)) 1 ampul NEB Q6HR NEB [facility] Last Admin: 04/14/18 03:28 Dose: 1 ampul Aspirin (Ecotrin) 81 mg PO DAILY [facility] Last Admin: 04/13/18 08:06 Dose: 81 mg Atorvastatin Calcium (Lipitor) 40 mg PO [facility] Last Admin: 04/13/18 21:44 Dose: 40 mg Bisacodyl (Dulcolax Supp) 10 mg RECTAL DAILY PRN PRN Reason: SEVERE CONSITIPATION Calcium Acetate (Phoslo) 1,334 mg PO TID [facility] Last Admin: 04/13/18 17:44 Dose: 1,334 mg Chlorhexidine Gluconate (Chlorhexidine 2% Cloth) 3 pack TOPICAL DAILY@0400 [facility] Stop: 04/17/18 03:59 Last Admin: 04/14/18 03:19 Dose: Not Given Chlorhexidine Gluconate (Chlorhexidine 2% Cloth) 3 pack TOPICAL DAILY@0400 PRN PRN Reason: Extra cloth needed Stop: 04/17/18 03:59 Cinacalcet (Sensipar) 90 mg PO BID [facility] Last Admin: 04/13/18 21:44 Dose: 90 mg Clonidine HCl (Catapres) 0.1 mg PO UNSCH PRN PRN Reason: SEE LABEL COMMENTS Dextrose (D50w Vial) 50 ml IV.PUSH UNSCH PRN PRN Reason: PER HYPOGLYCEMIA PROTOCOL Diphenhydramine HCl (Benadryl) 25 mg PO UNSCH PRN PRN Reason: SEE LABEL COMMENTS Epoetin Gian (Epogen Inj) 4,000 unit IV.PUSH UNSCH PRN PRN Reason: SEE LABEL COMMENTS Last Admin: 04/13/18 09:07 Dose: 4,000 unit Gelatin (Gelfoam 12 Mm/7 Mm Topical) 1 foam TOPICAL PRN PRN PRN Reason: help stop bleeding from site Gentamicin Sulfate (Gentamicin Inj) 20 mg OTHER WITH DIALYSIS PRN PRN Reason: Dwell Gentamycin Lock Glucagon (Glucagon Inj) 1 mg OTHER UNSCH PRN PRN Reason: for Hypoglycemia Protocol Heparin Sodium (Porcine) (Heparin Inj) 5,000 units SQ Q12H [facility] Last Admin: 04/14/18 00:28 Dose: 5,000 units Heparin Sodium (Porcine) (Heparin Inj) 8,000 units OTHER WITH DIALYSIS PRN PRN Reason: for machine prime Heparin Sodium (Porcine) (Heparin Inj) 1,000 units OTHER WITH DIALYSIS PRN PRN Reason: Dwell Heparin to Fill Catheter Albumin Human (Flexbumin 25% Inj) 100 mls @ 60 mls/hr IV.SIG WITH DIALYSIS PRN PRN Reason: hypotension / volume replace Sodium Chloride (Ns Inj) 1,000 mls @ 0 mls/hr OTHER .Q0M PRN PRN Reason: for prime and rinse back Sodium Chloride (Ns Inj) 1,000 mls @ 200 mls/hr OTHER .Q5H PRN PRN Reason: for dialyzer flush PRN Sodium Chloride (Ns Inj) 1,000 mls @ 0 mls/hr IV.CONT .Q0M PRN PRN Reason: hypotension / volume replace Insulin Aspart (Novolog Insulin Correctional Sugar Inj) 0 unit SQ Q6HR CHEL; Protocol Last Admin: 04/14/18 06:27 Dose: Not Given Isosorbide Mononitrate (Imdur) 120 mg PO DAILY@0700 [facility] Last Admin: 04/14/18 06:27 Dose: 120 mg Lactulose (Lactulose Liq) 30 ml PO DAILY PRN PRN Reason: SEVERE CONSITIPATION Mannitol (Mannitol Inj) 12.5 gm IV.PUSH UNSCH PRN PRN Reason: hypotension / volume replace Nitroglycerin (Nitrostat Sl) 0.4 mg SL Q5M PRN PRN Reason: CHEST PAIN Ondansetron HCl (Zofran Inj) 4 mg IV.PUSH UNSCH PRN PRN Reason: NAUSEA OR VOMITING Pantoprazole Sodium (Protonix Inj) 40 mg IV.PUSH DAILY [facility] Last Admin: 04/13/18 08:06 Dose: 40 mg Senna/Docusate Sodium (Maribel-Colace) 1 tab PO BID [facility] Last Admin: 04/13/18 21:44 Dose: 1 tab Sennosides (Senokot) 17.2 mg PO Q12H PRN PRN Reason: Moderate Constipation Sodium Chloride (Ns Flush) 2 ml IV.FLUSH UNSCH PRN PRN Reason: FLUSH AFTER USING IV ACCESS Sodium Chloride (Ns Flush) 2 ml IV.FLUSH BID [facility] Last Admin: 04/13/18 21:44 Dose: 2 ml Sodium Chloride (Ns Flush) 5 ml IV.FLUSH PRN PRN PRN Reason: flush each lumen during HD Physical Exam Vital signs: Vital Signs 04/13/18 08:00 04/13/18 08:15 04/13/18 08:30 Temperature 98.0 F Pulse Rate 82 84 82 Respiratory Rate 23 36 H 27 H Blood Pressure 149/69 H 169/74 H 159/61 H Pulse Oximetry 94 L 91 L 93 L 04/13/18 08:45 04/13/18 09:00 04/13/18 09:15 Temperature Pulse Rate 84 91 H 84 Respiratory Rate 19 25 H 25 H Blood Pressure 161/72 H 170/74 H 158/72 H Pulse Oximetry 91 L 91 L 92 L 04/13/18 09:30 04/13/18 09:45 04/13/18 09:46 Temperature Pulse Rate 87 86 Respiratory Rate 28 H 28 H Blood Pressure 158/65 H 162/71 H Pulse Oximetry 92 L 92 L 92 L 04/13/18 10:00 04/13/18 10:15 04/13/18 10:30 Temperature Pulse Rate 87 90 90 Respiratory Rate 28 H 29 H 37 H Blood Pressure 166/77 H 163/64 H 165/72 H Pulse Oximetry 90 L 90 L 89 L 04/13/18 10:45 04/13/18 11:00 04/13/18 11:36 Temperature Pulse Rate 87 87 92 H Respiratory Rate 21 27 H 21 Blood Pressure 156/66 H 157/79 H 123/65 Pulse Oximetry 92 L 91 L 90 L 04/13/18 11:39 04/13/18 11:49 04/13/18 12:00 Temperature 98.6 F Pulse Rate 94 H 92 H 92 H Respiratory Rate 34 H 24 19 Blood Pressure 101/55 L 149/72 H Pulse Oximetry 87 L 91 L 91 L 04/13/18 12:01 04/13/18 12:18 04/13/18 12:31 Temperature Pulse Rate 92 H 91 H Respiratory Rate 27 H 20 26 H Blood Pressure 163/92 H 187/82 H Pulse Oximetry 89 L 91 L 04/13/18 12:42 04/13/18 12:44 04/13/18 12:49 Temperature Pulse Rate 91 H 92 H Respiratory Rate 29 H 30 H 25 H Blood Pressure 190/101 H 118/59 L Pulse Oximetry 89 L 89 L 04/13/18 12:51 04/13/18 12:58 04/13/18 13:00 Temperature Pulse Rate 94 H Respiratory Rate 25 H 20 32 H Blood Pressure Pulse Oximetry 94 L 04/13/18 13:08 04/13/18 14:00 04/13/18 15:00 Temperature Pulse Rate 93 H 96 H 90 Respiratory Rate 14 30 H 25 H Blood Pressure Pulse Oximetry 91 L 95 04/13/18 15:52 04/13/18 16:00 04/13/18 16:45 Temperature 98.1 F Pulse Rate 90 89 85 Respiratory Rate 20 18 13 Blood Pressure 110/58 L 110/58 L Pulse Oximetry 94 L 96 04/13/18 17:00 04/13/18 18:00 04/13/18 18:44 Temperature Pulse Rate 88 91 H Respiratory Rate 28 H 23 12 Blood Pressure 110/60 121/62 Pulse Oximetry 94 L 92 L 04/13/18 20:00 04/13/18 20:39 04/13/18 23:25 Temperature 98.4 F 98.7 F Pulse Rate 87 88 89 Respiratory Rate 18 20 18 Blood Pressure 134/76 143/69 H Pulse Oximetry 97 94 L 93 L 04/14/18 00:02 04/14/18 01:58 04/14/18 03:31 Temperature Pulse Rate 89 96 H Respiratory Rate 19 17 Blood Pressure Pulse Oximetry 97 04/14/18 04:00 04/14/18 04:40 04/14/18 06:00 Temperature 97.3 F L Pulse Rate 80 76 Respiratory Rate 18 18 Blood Pressure 116/59 L Pulse Oximetry 91 L 04/14/18 06:52 Temperature Pulse Rate 83 Respiratory Rate 18 Blood Pressure 135/66 Pulse Oximetry 93 L Intake & Output 04/13/18 04/14/18 04/14/18 18:59 06:59 18:59 Intake Total 200 / 200 Output Total 2500 / 2500 Balance -2500 / -2500 200 / 200 Weight 274 lb 7.608 oz Intake: Oral 200 / 200 Output: Urine 0 / 0 Hemodialysis Amount 2500 / 2500 Other: # Voids 0 # Bowel Movements 0 0 Narrative: GENERAL: Well-developed well-nourished. Appears uncomfortable, but in no acute distress. NECK: No carotid bruits. No JVD. CARDIOVASCULAR: Regular rate and rhythm. No murmur appreciated. RESPIRATORY: No accessory muscle use. Clear to auscultation. Breath sounds equal bilaterally. MUSCULOSKELETAL: No clubbing or cyanosis. No edema. NEUROLOGICAL: Awake and alert. Normal speech. Results 04/13/18 02:57 04/14/18 07:18 Cardiac Enzymes 04/12/18 Range/Units 06:56 Troponin I 0.34 H (0.02-0.05) ng/mL CBC 04/13/18 Range/Units 02:57 WBC 10.6 (4.0-11.0) th/mm3 RBC 3.25 L (4.50-5.90) mil/mm3 Hgb 9.1 L (13.0-17.0) gm/dL Hct 28.6 L (39.0-51.0) % Plt Count 194 (150-450) th/mm3 Neut # (Auto) 8.4 H (1.8-7.7) th/mm3 Lymph # (Auto) 0.9 L (1.0-4.8) th/mm3 [place] # (Auto) 1.1 H (0.0-0.9) th/mm3 Eos # (Auto) 0.2 (0.0-0.4) th/mm3 Baso # (Auto) 0.0 (0.0-0.2) th/mm3 Intake and Output 04/13/18 04/14/18 04/14/18 22:59 06:59 14:59 Intake Total 200 / 200 Output Total 0 / 0 Balance 0 / 0 200 / 200 Intake: Oral 200 / 200 Output: Urine 0 / 0 Other: # Voids 0 # Bowel Movements 0 0 Weight 273 lb 9.498 oz 274 lb 7.608 oz - Imaging and Cardiology Imaging: Impressions Chest CTA 04/12/18 00:00 CONCLUSION: 1. No CT evidence for pulmonary artery embolism as questioned. 2. Cardiomegaly with trace bilateral pleural effusions and mild airspace consolidation at the lung bases which may reflect compressive atelectasis. Differential considerations include aspiration in the appropriate clinical setting. 3. Trace perihepatic ascites fluid. Assessment and Plan - Plan 57-year-old male with CAD s/p 6v CABG 2003 and PCI to LCx 05/18 grafts patent on [facility], ESRD on home HD 4x per week, HTN, HLD, DM. The patient was at [facility] getting colonoscopy done 04/11/18 and had reported asystolic cardiac arrest. Asystolic arrest during anesthesia for colonoscopy: No strips available, however no noted VT/VF. Minimal troponin elevation in the setting of ESRD. Less likely to be related to ischemic episode, EKG unremarkable, troponin unremarkable, VT/VF more common for ischemic etiology. 7-day event monitor at discharge. Chest pain/shortness of breath: CTA negative for PE. Echo with EF 50-55%, mild valve disease. No plans for [facility] for now; old films reviewed, diffuse disease; started Imdur 60 mg. Repeat troponin. CAD: Continue home aspirin and atorvastatin 40 mg. ESRD on HD: Nephrology on board. Discussed Condition With: Patient, RN, Dr. Arredondo - Attending Attestation Still having intermittent chest pain symptoms, somewhat relieved with nitroglycerin. I do not think that this event was primary cardiac in etiology/ischemic. We have titrated isosorbide 220 mg a day. Breathing is still an issue Tentatively, we are going to plan for cardiac catheterization tomorrow given his symptoms. [email or web address] p mn
[2018-04-14 08:02] LABS: Albumin 3.2 g/dL (3.4-5.0); Calcium 6.2 mg/dL (8.5-10.1); Carbon Dioxide 24.2 meq/L (21.0-32.0); Phosphorus 7.4 mg/dL (2.5-4.9)
[2018-04-14 08:18] LABS: Calcium-Albumin Corrected 6.8 mg/dL (8.5-10.1)
[2018-04-14] MEDS: Calcium Acetate 667 MG Capsule PO SCH ×3 (09:23→17:13)
[2018-04-14] MEDS: Pantoprazole Inj 40 MG Vial IV.PUSH SCH (09:23)
[2018-04-14] MEDS: Senna/Docusate Sodium 8.6/50 MG Tablet PO SCH ×2 (09:23→20:12)
--- NOTE | 2018-04-14 12:58 | P.PNIM ---
Subjective Interval history: Pt c/o SOB. Pt transferred to cardiac floor CXR showed left basilar infiltrate Pt developed sinus tachycardia with hypotension. Physical Exam Vital signs: Last Vital Signs Temp 98.4 F 04/14/18 12:35 Pulse 85 04/14/18 12:35 Resp 18 04/14/18 12:35 BP 122/62 04/14/18 12:35 Pulse Ox 95 04/14/18 12:35 Narrative: GENERAL: This is a well-nourished, well-developed patient, in no apparent distress. CARDIOVASCULAR: tachycardia RESPIRATORY: Clear to auscultation. Breath sounds equal bilaterally. No wheezes , rales, or rhonchi. GASTROINTESTINAL: Abdomen soft, non-tender, nondistended. Normal active bowel sounds MUSCULOSKELETAL: Extremities without clubbing, cyanosis, or edema. NEURO: Alert & Oriented x4 to person, place, time, situation. Moves all ext x4 Results Labs CBC & Chem 7: 04/13/18 02:57 04/14/18 07:18 Assessment and Plan Assessment (1) Supraventricular arrhythmia: Code(s): I49.9 - Cardiac arrhythmia, unspecified Status: Acute (2) Hypertension: Code(s): I10 - Essential (primary) hypertension Status: Acute (3) Diabetes: Code(s): E11.9 - Type 2 diabetes mellitus without complications Status: Acute (4) End stage renal disease on dialysis: Code(s): N18.6 - End stage renal disease; Z99.2 - Dependence on renal dialysis Status: Acute (5) Cardiopulmonary arrest with successful resuscitation: Code(s): I46.9 - Cardiac arrest, cause unspecified Status: Acute (6) Hypocalcemia: Code(s): E83.51 - Hypocalcemia Status: Acute (7) Elevated troponin I level: Code(s): R74.8 - Abnormal levels of other serum enzymes Status: Acute (8) End stage renal disease on dialysis: Code(s): N18.6 - End stage renal disease; Z99.2 - Dependence on renal dialysis Status: Acute Plan 1) Cardiopulmonary Arrest with successful recussitation - Case d/w Cardiology (04/14) - Case d/w Critical Care (04/14) - Pt clinically c/o SOB - CXR (04/14) --> left basilar infiltrate - Pt moved to cardiac floor - Pt developed sinus tachycardia with hypotension - Pt given fluid bolus - Vancomycin/Zosyn started for possible infection - Pt abruptly converted back to NSR, A.Flutter? - Cardiology considering [facility] 04/15 - Appreciate input from Dr. Hidalgo - DREW, imdur, lipitor - SQ heparin for DVT prophylaxis 2) ESRD on HD - HD ,, Wednesday per Dr. Vasquez 3) DM2 - SSI Progress Note: Quality VTE Deep Vein Thrombosis/Pulmonary Embolism Present on Admission: No _ (1) Hypertension Qualifiers: Hypertension type: essential hypertension Qualified Code(s): I10 - Essential (primary) hypertension (2) Diabetes Qualifiers: Diabetes mellitus type: Diabetes mellitus fci insulin use: unspecified intermediate manager insulin use status Diabetes mellitus complication status : Diabetes mellitus complication detail: Diabetic retinopathy severity: Proliferative retinopathy type: Diabetes mellitus macular edema: Laterality : Chronic kidney disease stage:
[2018-04-14] MEDS ORDERED: Nitroglycerin Drip Premix 50 MG/250 ML BOTTLE IV.CONT PRN (14:33)
--- NOTE | 2018-04-14 15:56 | XR ---
EXAM DATE: 04/14/2018 3:34 PM EST AGE/SEX: 57 years / Male INDICATIONS: Short of breath. CLINICAL DATA: This is the patient's subsequent encounter. Patient reports that signs and symptoms h ave been present for 4 - 6 days and indicates a pain score of 6/10. MEDICAL/SURGICAL HISTORY: Myocardial infarction. Cardiovascular disease. CABG. COMPARISON: [facility] [place], CHEST 1V SINGLE AP, 04/11/2018. . FINDINGS: Single view of the chest demonstrate the clips and wire suggest CABG. Loss of left hemidiaphragm combination of atelectasis or infiltrate. Could be small left pleural effu luis carlos. Left upper lobe is clear. Right lungs clear. CONCLUSION: Increasing density left lung base , atelectasis versus infiltrate. Electronically signed by: Ramos Bo MD Board Certified Radiologist 04/14/2018 3:55 PM EST
[2018-04-14] MEDS ORDERED: Piperacil/Tazo 3.375 GM Premix 3.375 GM/50 ML PIGGYBACK IV.SIG SCH (16:19)
[2018-04-14] MEDS ORDERED: Sod Chloride 0.9% Inj 1,000 ML IV.SIG SCH (16:55)
[2018-04-14] MEDS: Piperacil/Tazo 2.25 GM Premix 2.25 GM/50 ML PIGGYBACK IV.SIG SCH (17:16)
--- NOTE | 2018-04-14 17:17 | P.PNNP ---
Subjective Interval history: Plans for cardiac catheterization tomorrow, status post cardiac arrest. With no complaints at this time. <Jenna Adan - Last Filed: 04/14/18 17:06> Physical Exam Vital signs: Vital Signs 04/13/18 18:00 04/13/18 18:44 04/13/18 20:00 Temperature 98.4 F Pulse Rate 91 H 87 Respiratory Rate 23 12 18 Blood Pressure 121/62 134/76 Pulse Oximetry 92 L 97 04/13/18 20:39 04/13/18 23:25 04/14/18 00:02 Temperature 98.7 F Pulse Rate 88 89 89 Respiratory Rate 20 18 Blood Pressure 143/69 H Pulse Oximetry 94 L 93 L 04/14/18 01:58 04/14/18 03:31 04/14/18 04:00 Temperature Pulse Rate 96 H Respiratory Rate 19 17 18 Blood Pressure Pulse Oximetry 97 04/14/18 04:40 04/14/18 06:00 04/14/18 06:52 Temperature 97.3 F L Pulse Rate 80 76 83 Respiratory Rate 18 18 Blood Pressure 116/59 L 135/66 Pulse Oximetry 91 L 93 L 04/14/18 08:00 04/14/18 08:18 04/14/18 08:19 Temperature 98.3 F Pulse Rate 89 84 99 H Respiratory Rate 16 18 Blood Pressure 128/77 Pulse Oximetry 95 04/14/18 08:27 04/14/18 12:00 04/14/18 12:22 Temperature Pulse Rate 83 84 Respiratory Rate 17 Blood Pressure Pulse Oximetry 93 L 04/14/18 12:35 04/14/18 15:00 Temperature 98.4 F Pulse Rate 85 87 Respiratory Rate 18 14 Blood Pressure 122/62 Pulse Oximetry 95 Intake & Output 04/13/18 04/14/18 04/14/18 18:59 06:59 18:59 Intake Total 200 / 200 Output Total 2500 / 2500 Balance -2500 / -2500 200 / 200 Weight 124.5 kg Intake: Oral 200 / 200 Output: Urine 0 / 0 Hemodialysis Amount 2500 / 2500 Other: # Voids 0 Date of Last Bowel Movement 04/10/18 # Bowel Movements 0 0 Narrative: GENERAL: Well-developed well-nourished. Appears uncomfortable, but in no acute distress. NECK: No carotid bruits. No JVD. CARDIOVASCULAR: Regular rate and rhythm. No murmur appreciated. RESPIRATORY: No accessory muscle use. Clear to auscultation. Breath sounds equal bilaterally. MUSCULOSKELETAL: No clubbing or cyanosis. No edema. NEUROLOGICAL: Awake and alert. Normal speech. <Jenna Adan - Last Filed: 04/14/18 17:06> Vital signs: Vital Signs 04/14/18 01:58 04/14/18 03:31 04/14/18 04:00 Temperature Pulse Rate 96 H Respiratory Rate 19 17 18 Blood Pressure Pulse Oximetry 97 04/14/18 04:40 04/14/18 06:00 04/14/18 06:52 Temperature 97.3 F L Pulse Rate 80 76 83 Respiratory Rate 18 18 Blood Pressure 116/59 L 135/66 Pulse Oximetry 91 L 93 L 04/14/18 08:00 04/14/18 08:18 04/14/18 08:19 Temperature 98.3 F Pulse Rate 89 84 99 H Respiratory Rate 16 18 Blood Pressure 128/77 Pulse Oximetry 95 04/14/18 08:27 04/14/18 12:00 04/14/18 12:22 Temperature Pulse Rate 83 84 Respiratory Rate 17 Blood Pressure Pulse Oximetry 93 L 04/14/18 12:35 04/14/18 15:00 04/14/18 16:00 Temperature 98.4 F 98.6 F Pulse Rate 85 87 88 Respiratory Rate 18 14 24 Blood Pressure 122/62 109/61 Pulse Oximetry 95 93 L 04/14/18 20:00 04/14/18 21:34 Temperature 98.6 F Pulse Rate 91 H 93 H Respiratory Rate 24 18 Blood Pressure 122/78 Pulse Oximetry 96 94 L Intake & Output 04/14/18 04/14/18 04/15/18 06:59 18:59 06:59 Intake Total 200 / 200 650 / 650 515 / 515 Balance 200 / 200 650 / 650 515 / 515 Weight 124.5 kg Intake: IV 550 / 550 515 / 515 Zosyn 2.25 GM Premix 2.25 gm In 50 / 50 50 ml @ 100 mls/hr IV.SIG Q8H DOMENICO Rx#:[id number] NS Inj 1,000 ML @ 1000 mls/hr 500 / 500 IV.SIG BOLUS DOMENICO Rx#:[id number] Vancomycin Inj 1,500 MG In NS 515 / 515 Inj 500 ML @ 250 mls/hr IV.SIG ONCE ONE Rx#:[id number] Oral 200 / 200 100 / 100 Other: # Voids 0 Date of Last Bowel Movement 04/10/18 # Bowel Movements 0 <Ailin Vasquez - Last Filed: 04/15/18 00:12> Assessment and Plan - Assessment (1) End stage renal disease Code(s): N18.6 - End stage renal disease Status: Acute Plan: Next dialysis date is tomorrow Evidence of volume of volume overload 2.5 L removed yesterday. 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: 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 vermin exterminator insulin use status Plan: Monitor blood glucose, follow blood work -Management per internal medicine (4) Cardiopulmonary arrest with successful resuscitation Code(s): I46.9 - Cardiac arrest, cause unspecified Status: Acute Plan: Cardiology on board -cardiac catheterization tomorrow <Jenna Adan - Last Filed: 04/14/18 17:06> - Assessment (1) End stage renal disease Code(s): N18.6 - End stage renal disease Status: Acute (2) Hypertension Code(s): I10 - Essential (primary) hypertension Status: Acute Qualifiers: Hypertension type: essential hypertension Qualified Code(s): I10 - Essential (primary) hypertension (3) Diabetes Code(s): E11.9 - Type 2 diabetes mellitus without complications Status: Acute Qualifiers: Diabetes mellitus vermin exterminator insulin use: unspecified senior living insulin use status (4) Cardiopulmonary arrest with successful resuscitation Code(s): I46.9 - Cardiac arrest, cause unspecified Status: Acute - Attending Attestation I have seen and examined the patient, care discussed with family and SANA West agree with assessment and plan <Ailin Vasquez - Last Filed: 04/15/18 00:12>
--- NOTE | 2018-04-14 17:29 | P.PN ---
Subjective Interval history: Feeling tired Physical Exam Vital signs: Vital Signs 04/13/18 18:00 04/13/18 18:44 04/13/18 20:00 Temperature 98.4 F Pulse Rate 91 H 87 Respiratory Rate 23 12 18 Blood Pressure 121/62 134/76 Pulse Oximetry 92 L 97 04/13/18 20:39 04/13/18 23:25 04/14/18 00:02 Temperature 98.7 F Pulse Rate 88 89 89 Respiratory Rate 20 18 Blood Pressure 143/69 H Pulse Oximetry 94 L 93 L 04/14/18 01:58 04/14/18 03:31 04/14/18 04:00 Temperature Pulse Rate 96 H Respiratory Rate 19 17 18 Blood Pressure Pulse Oximetry 97 04/14/18 04:40 04/14/18 06:00 04/14/18 06:52 Temperature 97.3 F L Pulse Rate 80 76 83 Respiratory Rate 18 18 Blood Pressure 116/59 L 135/66 Pulse Oximetry 91 L 93 L 04/14/18 08:00 04/14/18 08:18 04/14/18 08:19 Temperature 98.3 F Pulse Rate 89 84 99 H Respiratory Rate 16 18 Blood Pressure 128/77 Pulse Oximetry 95 04/14/18 08:27 04/14/18 12:00 04/14/18 12:22 Temperature Pulse Rate 83 84 Respiratory Rate 17 Blood Pressure Pulse Oximetry 93 L 04/14/18 12:35 04/14/18 15:00 Temperature 98.4 F Pulse Rate 85 87 Respiratory Rate 18 14 Blood Pressure 122/62 Pulse Oximetry 95 Intake & Output 04/13/18 04/14/18 04/14/18 18:59 06:59 18:59 Intake Total 200 / 200 Output Total 2500 / 2500 Balance -2500 / -2500 200 / 200 Weight 124.5 kg Intake: Oral 200 / 200 Output: Urine 0 / 0 Hemodialysis Amount 2500 / 2500 Other: # Voids 0 Date of Last Bowel Movement 04/10/18 # Bowel Movements 0 0 - Constitutional moderate distress - Routine HEENT Exam Head: Present: normocephalic Eye: Present: PERRL ENT: Present: mucous membranes moist - Routine Respiratory Exam Present: accessory muscle use - Routine Cardiovascular Exam Present: RRR, tachycardia - Routine Neurological Exam Present: alert, oriented X3 - Detailed Neurological Exam: Coma Scale Eye Opening: Spontaneous Motor Response: Obey commands Results - Labs CBC & Chem 7: 04/13/18 02:57 04/14/18 07:18 Laboratory Results - last 24 hr 04/13/18 04/14/18 04/14/18 17:40 00:30 06:27 Sodium Potassium Chloride Carbon Dioxide Anion Gap BUN Creatinine Estimated GFR POC Glucose 183 H 180 H 140 H Random Glucose Calcium Calcium Adj for Albumin Phosphorus Troponin I Albumin 04/14/18 04/14/18 04/14/18 07:18 07:18 11:44 Sodium 134 L Potassium 4.0 Chloride 95 L Carbon Dioxide 24.2 Anion Gap 15 BUN 61 H Creatinine 8.42 H Estimated GFR 7 L POC Glucose 207 H Random Glucose 130 H Calcium 6.2 L* Calcium Adj for Albumin 6.8 L* Phosphorus 7.4 H Troponin I 0.12 H Albumin 3.2 L 04/14/18 17:05 Sodium Potassium Chloride Carbon Dioxide Anion Gap BUN Creatinine Estimated GFR POC Glucose 177 H Random Glucose Calcium Calcium Adj for Albumin Phosphorus Troponin I Albumin - Imaging Impressions Chest X-Ray 04/14/18 00:00 CONCLUSION: Increasing density left lung base , atelectasis versus infiltrate. Assessment and Plan - Assessment (1) Supraventricular arrhythmia Code(s): I49.9 - Cardiac arrhythmia, unspecified Status: Acute Plan: Patient was a SVT on evaluation can barely talk SOB Very symptomatic I was ready to use cardizem IV but patient converted back into sinus rhythm Doing better now Possible LHC in AM by DR Arredondo (2) Cardiopulmonary arrest with successful resuscitation Code(s): I46.9 - Cardiac arrest, cause unspecified Status: Acute Plan: No pause, no VT since hospitalization
[2018-04-14] MEDS ORDERED: Vancomycin Inj 1,500 MG in Sodium Chlor 0.9% Inj 500 ML IV.SIG ONE (18:00)
[2018-04-14] MEDS ORDERED: Piperacil/Tazo 2.25 GM Premix 2.25 GM/50 ML PIGGYBACK IV.SIG SCH (20:00)
--- NOTE | 2018-04-14 20:21 | MB ---
cc: David Hidalgo MD, Edward B DO Latif, Sajid MD Seide, Hanscy MD DATE: 04/13/2018 REASON FOR CONSULTATION: Cardiac arrest, episode of systole. HISTORY OF PRESENT ILLNESS: Mr. Salguero is a 57-year-old gentleman with history of coronary artery disease, coronary artery bypass grafting, high blood pressure, hyperlipidemia, diabetes mellitus, CVA, morbid obesity, who was at [facility] for colonoscopy. Over there, apparently, the patient developed asystole during the procedure. Cardiac compression was performed. The patient was transferred subsequently to the Center for evaluation. The patient was seen by Dr. Arredondo and his team. Ejection fraction is 40-45%. Previous nuclear study in 09/2017 was negative for ischemia. I was consulted for evaluation and management. The chart was reviewed. The patient was evaluated. Case discussed with the patient, his and his son. ALLERGIES: NONE. SOCIAL HISTORY: The gentleman denies smoking and drinking. The patient used to be a former smoker. FAMILY HISTORY: Noncontributory to his current medical condition. MEDICATIONS: The gentleman is on: 1. Albuterol. 2. Aspirin 81 mg a day. 3. Lipitor 40 mg a day. 4. Epogen. 5. Gentamicin. 6. Zosyn. REVIEW OF SYSTEMS: The patient reports feeling better. Some shortness of breath, no chest pain. No chest discomfort. PHYSICAL EXAMINATION: GENERAL: Alert, fully oriented. VITAL SIGNS: Blood pressure on evaluation 134/76, pulse 87, respiratory rate around 20. LUNGS: Ventilated. CARDIOVASCULAR: S1, S2, regular, no gallop. ABDOMEN: Obese. No mass. No bruits. EXTREMITIES: No edema. DIAGNOSTIC DATA: Electrocardiogram indicated sinus rhythm, diffuse ST changes. LABORATORY DATA: Hemoglobin 9.1. White blood cell 10.6, potassium 5.2, creatinine 12.05. Troponin 0.07; on hospitalization, subsequently increased to 0.34. ASSESSMENT AND RECOMMENDATIONS: Mr. Salugero has multiple co-morbidities. He is severely obese. He has severe renal failure, on hemodialysis. He has history of coronary artery disease. He had a cardiac arrest, apparently a systolic cardiac arrest. I am not sure there was any arrhythmia. Case was discussed with Dr. Arredondo. This gentleman is going to need a left heart catheterization. I do understand that there was a nuclear stress study in September that was negative. In this gentleman's case, balanced ischemia may be a factor and the study is going to be negative. The best approach is a left heart catheterization. If there is no need for revascularization, this gentleman will need an electrophysiology study. I will monitor Mr. Salguero during hospitalization. I agree with the current management. MD SADIQ Everett/aida , 04:37 PM , 04:48 PM
[2018-04-15] MEDS: Insulin NovoLOG Aspart Correctional Sugar Inj SQ SCH ×5 (00:06→23:54)
[2018-04-15] MEDS: Heparin - SQ 10,000 UNITS/ML Vial SQ SCH ×2 (00:06→17:47)
[2018-04-15] MEDS: Piperacil/Tazo 2.25 GM Premix 2.25 GM/50 ML PIGGYBACK IV.SIG SCH ×3 (01:42→17:56)
[2018-04-15] MEDS: Chlorhexidine Gluconate 2% 1 Pack (2 Cloths) TOPICAL SCH (03:42)
[2018-04-15 04:27] LABS: Baso % (Auto) 0.2 % (0.0-2.0); Eos # (Auto) 0.3 th/mm3 (0.0-0.4); Eos % (Auto) 2.2 % (0.0-4.0); Hematocrit 30.3 % (39.0-51.0); Hemoglobin 9.5 gm/dL (13.0-17.0); Lymph # (Auto) 0.6 th/mm3 (1.0-4.8); Lymph % (Auto) 5.4 % (9.0-44.0); Mean Corpuscular HGB Conc 31.4 % (32.0-36.0); Mean Corpuscular Hemoglobin 27.6 pg (27.0-34.0); Mean Corpuscular Volume 87.8 fL (80.0-100.0); Mean Platelet Volume 8.6 fL (7.0-11.0); Mono # (Auto) 1.2 th/mm3 (0.0-0.9); Mono % (Auto) 10.4 % (0.0-8.0); Neut # (Auto) 9.3 th/mm3 (1.8-7.7); Neut % (Auto) 81.8 % (16.0-70.0); Platelet Count 213 th/mm3 (150-450); Red Blood Count 3.46 mil/mm3 (4.50-5.90); Red Cell Distribution Width 17.9 % (11.6-17.2); White Blood Count 11.4 th/mm3 (4.0-11.0)
[2018-04-15 04:53] LABS: Carbon Dioxide 21.9 meq/L (21.0-32.0); Potassium 4.4 meq/L (3.5-5.1)
[2018-04-15 05:08] LABS: Albumin 3.4 g/dL (3.4-5.0)
[2018-04-15 05:39] LABS: Calcium-Albumin Corrected 6.5 mg/dL (8.5-10.1)
[2018-04-15] MEDS: Isosorbide Mononitrate 60 MG ER 24HR Tablet (Imdur) PO SCH (06:05)
[2018-04-15] MEDS: Albumin Human 25% Inj 100 ML IV.SIG PRN ×2 (09:06→09:07)
[2018-04-15] MEDS: Calcium Acetate 667 MG Capsule PO SCH ×3 (09:49→18:46)
[2018-04-15] MEDS: Senna/Docusate Sodium 8.6/50 MG Tablet PO SCH ×2 (09:49→20:34)
[2018-04-15] MEDS: Pantoprazole Inj 40 MG Vial IV.PUSH SCH (09:49)
--- NOTE | 2018-04-15 10:58 | P.PNNP ---
Subjective Interval history: Patient is seen in dialysis he was short of breath Physical Exam Vital signs: Vital Signs 04/14/18 12:00 04/14/18 12:22 04/14/18 12:35 Temperature 98.4 F Pulse Rate 83 84 85 Respiratory Rate 17 18 Blood Pressure 122/62 Pulse Oximetry 95 04/14/18 15:00 04/14/18 16:00 04/14/18 19:00 Temperature 98.6 F Pulse Rate 87 88 86 Respiratory Rate 14 24 Blood Pressure 109/61 Pulse Oximetry 93 L 04/14/18 20:00 04/14/18 21:00 04/14/18 21:34 Temperature 98.6 F Pulse Rate 90 90 93 H Respiratory Rate 24 18 Blood Pressure 122/78 Pulse Oximetry 96 94 L 04/14/18 22:00 04/14/18 23:00 04/15/18 00:00 Temperature 98.5 F Pulse Rate 92 H 92 H 90 Respiratory Rate 24 Blood Pressure 110/68 Pulse Oximetry 92 L 04/15/18 01:00 04/15/18 02:00 04/15/18 03:00 Temperature Pulse Rate 88 90 89 Respiratory Rate Blood Pressure Pulse Oximetry 04/15/18 03:39 04/15/18 04:00 04/15/18 05:00 Temperature 99.4 F Pulse Rate 90 88 92 H Respiratory Rate 18 22 Blood Pressure 138/63 Pulse Oximetry 92 L 04/15/18 06:00 04/15/18 07:00 04/15/18 07:30 Temperature Pulse Rate 92 H 89 Respiratory Rate Blood Pressure Pulse Oximetry 94 L 04/15/18 08:00 Temperature 97.6 F Pulse Rate 92 H Respiratory Rate 21 Blood Pressure 110/61 Pulse Oximetry 94 L Intake & Output 04/14/18 04/15/18 04/15/18 18:59 06:59 18:59 Intake Total 650 / 650 1045 / 1045 200 / 200 Output Total 0 / 0 Balance 650 / 650 1045 / 1045 200 / 200 Weight 123.6 kg Intake: IV 550 / 550 565 / 565 200 / 200 Flexbumin 25% Inj 100 ML @ 60 200 / 200 mls/hr IV.SIG WITH DIALYSIS PRN Rx#:[id number] Zosyn 2.25 GM Premix 2.25 gm In 50 / 50 50 / 50 50 ml @ 100 mls/hr IV.SIG Q8H DOMENICO Rx#:[id number] NS Inj 1,000 ML @ 1000 mls/hr 500 / 500 IV.SIG BOLUS DOMENICO Rx#:[id number] Vancomycin Inj 1,500 MG In NS 515 / 515 Inj 500 ML @ 250 mls/hr IV.SIG ONCE ONE Rx#:[id number] Oral 100 / 100 480 / 480 Output: Urine 0 / 0 Other: Date of Last Bowel Movement 04/10/18 Narrative: GENERAL: Well-developed well-nourished. Appears uncomfortable, but in no acute distress. NECK: No carotid bruits. No JVD. CARDIOVASCULAR: Regular rate and rhythm. No murmur appreciated. RESPIRATORY: Diminished at bases with rhonchi MUSCULOSKELETAL: No clubbing or cyanosis. No edema. NEUROLOGICAL: Awake and alert. Normal speech. Assessment and Plan - Assessment (1) End stage renal disease Code(s): N18.6 - End stage renal disease Status: Acute Plan: Seen during hemodialysis 3.5 L of ultrafiltration tolerating it well -For cardiac catheterization today dialysis can be done on Wednesday as well -PhosLo and Sensipar was started yesterday, continue (2) Hypertension Code(s): I10 - Essential (primary) hypertension Status: Acute Qualifiers: Hypertension type: essential hypertension Qualified Code(s): I10 - Essential (primary) hypertension Plan: Blood pressure currently within parameters -Continue to monitor titrate as needed (3) Diabetes Code(s): E11.9 - Type 2 diabetes mellitus without complications Status: Acute Qualifiers: Diabetes mellitus terminal operator insulin use: unspecified terminal operator insulin use status Plan: Monitor blood glucose, follow blood work -Management per internal medicine (4) Cardiopulmonary arrest with successful resuscitation Code(s): I46.9 - Cardiac arrest, cause unspecified Status: Acute Plan: Cardiology on board -cardiac catheterization tomorrow
--- NOTE | 2018-04-15 11:06 | P.PNCA ---
Subjective Interval history: Seen in hemodialysis. Very lethargic, NAD. Medications and Allergies Active Medications: Active Medications Hydrocodone Bitart/Acetaminophen ([place] 10/325) 1 tab PO Q6H PRN PRN Reason: PAIN SCALE 6 TO 10 Last Admin: 04/15/18 01:42 Dose: 1 tab Albuterol (Duoneb Neb (Prn)) 1 ampul NEB Q2HR NEB PRN PRN Reason: WHEEZING Last Admin: 04/15/18 06:05 Dose: 1 ampul Albuterol (Duoneb Neb (Chel)) 1 ampul NEB Q6HR NEB [facility] Last Admin: 04/15/18 09:40 Dose: Not Given Aspirin (Ecotrin) 81 mg PO DAILY [facility] Last Admin: 04/15/18 09:48 Dose: Not Given Atorvastatin Calcium (Lipitor) 40 mg PO HS [facility] Last Admin: 04/14/18 20:11 Dose: 40 mg Bisacodyl (Dulcolax Supp) 10 mg RECTAL DAILY PRN PRN Reason: SEVERE CONSITIPATION Calcium Acetate (Phoslo) 1,334 mg PO TID [facility] Last Admin: 04/15/18 09:49 Dose: Not Given Chlorhexidine Gluconate (Chlorhexidine 2% Cloth) 3 pack TOPICAL DAILY@0400 CHEL Stop: 04/17/18 03:59 Last Admin: 04/15/18 03:42 Dose: Not Given Chlorhexidine Gluconate (Chlorhexidine 2% Cloth) 3 pack TOPICAL DAILY@0400 PRN PRN Reason: Extra cloth needed Stop: 04/17/18 03:59 Cinacalcet (Sensipar) 90 mg PO BID [facility] Last Admin: 04/15/18 09:49 Dose: Not Given Clonidine HCl (Catapres) 0.1 mg PO UNSCH PRN PRN Reason: SEE LABEL COMMENTS Dextrose (D50w Vial) 50 ml IV.PUSH UNSCH PRN PRN Reason: PER HYPOGLYCEMIA PROTOCOL Diphenhydramine HCl (Benadryl) 25 mg PO UNSCH PRN PRN Reason: SEE LABEL COMMENTS Epoetin Gian (Epogen Inj) 4,000 unit IV.PUSH UNSCH PRN PRN Reason: SEE LABEL COMMENTS Last Admin: 04/15/18 09:06 Dose: 4,000 unit Gelatin (Gelfoam 12 Mm/7 Mm Topical) 1 foam TOPICAL PRN PRN PRN Reason: help stop bleeding from site Gentamicin Sulfate (Gentamicin Inj) 20 mg OTHER WITH DIALYSIS PRN PRN Reason: Dwell Gentamycin Lock Glucagon (Glucagon Inj) 1 mg OTHER UNSCH PRN PRN Reason: for Hypoglycemia Protocol Heparin Sodium (Porcine) (Heparin Inj) 5,000 units SQ Q12H [facility] Last Admin: 04/15/18 00:06 Dose: 5,000 units Heparin Sodium (Porcine) (Heparin Inj) 8,000 units OTHER WITH DIALYSIS PRN PRN Reason: for machine prime Heparin Sodium (Porcine) (Heparin Inj) 1,000 units OTHER WITH DIALYSIS PRN PRN Reason: Dwell Heparin to Fill Catheter Albumin Human (Flexbumin 25% Inj) 100 mls @ 60 mls/hr IV.SIG WITH DIALYSIS PRN PRN Reason: hypotension / volume replace Last Infusion: 04/15/18 09:14 Dose: Infused Sodium Chloride (Ns Inj) 1,000 mls @ 0 mls/hr OTHER .Q0M PRN PRN Reason: for prime and rinse back Sodium Chloride (Ns Inj) 1,000 mls @ 200 mls/hr OTHER .Q5H PRN PRN Reason: for dialyzer flush PRN Sodium Chloride (Ns Inj) 1,000 mls @ 0 mls/hr IV.CONT .Q0M PRN PRN Reason: hypotension / volume replace Nitroglycerin/Dextrose (Nitroglycerin Drip Premix) 50 mg in 250 mls @ 1.5 mls/ hr IV.CONT TITRATE PRN; Protocol PRN Reason: Per Protocol Piperacillin/Tazobactam/Dextrose (Zosyn 2.25 Gm Premix) 2.25 gm in 50 mls @ 100 mls/hr IV.SIG Q8H [facility] Last Infusion: 04/15/18 03:42 Dose: Infused Vancomycin HCl 1,000 mg/ (Sodium Chloride) 250 mls @ 250 mls/hr IV.SIG WITH DIALYSIS CHEL Insulin Aspart (Novolog Insulin Correctional Sugar Inj) 0 unit SQ Q6HR [facility]; Protocol Last Admin: 04/15/18 06:15 Dose: Not Given Isosorbide Mononitrate (Imdur) 120 mg PO DAILY@0700 [facility] Last Admin: 04/15/18 06:05 Dose: 120 mg Lactulose (Lactulose Liq) 30 ml PO DAILY PRN PRN Reason: SEVERE CONSITIPATION Last Admin: 04/15/18 01:42 Dose: 30 ml Mannitol (Mannitol Inj) 12.5 gm IV.PUSH UNSCH PRN PRN Reason: hypotension / volume replace Nitroglycerin (Nitrostat Sl) 0.4 mg SL Q5M PRN PRN Reason: CHEST PAIN Ondansetron HCl (Zofran Inj) 4 mg IV.PUSH Q6H PRN PRN Reason: NAUSEA OR VOMITING Pantoprazole Sodium (Protonix Inj) 40 mg IV.PUSH DAILY [facility] Last Admin: 04/15/18 09:49 Dose: Not Given Senna/Docusate Sodium (Maribel-Colace) 1 tab PO BID [facility] Last Admin: 04/15/18 09:49 Dose: Not Given Sennosides (Senokot) 17.2 mg PO Q12H PRN PRN Reason: Moderate Constipation Sodium Chloride (Ns Flush) 2 ml IV.FLUSH UNSCH PRN PRN Reason: FLUSH AFTER USING IV ACCESS Sodium Chloride (Ns Flush) 2 ml IV.FLUSH BID [facility] Last Admin: 04/14/18 20:48 Dose: 2 ml Sodium Chloride (Ns Flush) 5 ml IV.FLUSH PRN PRN PRN Reason: flush each lumen during HD Allergies Allergy/AdvReac Type Severity Reaction Status Date / Time No Known Allergies Allergy Verified 04/11/18 10:33 Home Medications Medication Instructions Recorded Confirmed Type furosemide 80 mg PO DAILY 11/10/17 04/11/18 History insulin glargine [Lantus U-100 25 unit SUB-Q HS 11/10/17 04/11/18 History Insulin] prednisone 5 mg PO DAILY 11/10/17 04/11/18 History sevelamer carbonate [Renvela] 1,600 mg PO TIDAC 11/10/17 04/11/18 History albuterol sulfate [Ventolin HFA] 2 puff INHALATION Q4-6H PRN 04/11/18 04/11/18 History Physical Exam Vital signs: Vital Signs 04/14/18 12:00 04/14/18 12:22 04/14/18 12:35 Temperature 98.4 F Pulse Rate 83 84 85 Respiratory Rate 17 18 Blood Pressure 122/62 Pulse Oximetry 95 04/14/18 15:00 04/14/18 16:00 04/14/18 19:00 Temperature 98.6 F Pulse Rate 87 88 86 Respiratory Rate 14 24 Blood Pressure 109/61 Pulse Oximetry 93 L 04/14/18 20:00 04/14/18 21:00 04/14/18 21:34 Temperature 98.6 F Pulse Rate 90 90 93 H Respiratory Rate 24 18 Blood Pressure 122/78 Pulse Oximetry 96 94 L 04/14/18 22:00 04/14/18 23:00 04/15/18 00:00 Temperature 98.5 F Pulse Rate 92 H 92 H 90 Respiratory Rate 24 Blood Pressure 110/68 Pulse Oximetry 92 L 04/15/18 01:00 04/15/18 02:00 04/15/18 03:00 Temperature Pulse Rate 88 90 89 Respiratory Rate Blood Pressure Pulse Oximetry 04/15/18 03:39 04/15/18 04:00 04/15/18 05:00 Temperature 99.4 F Pulse Rate 90 88 92 H Respiratory Rate 18 22 Blood Pressure 138/63 Pulse Oximetry 92 L 04/15/18 06:00 04/15/18 07:00 04/15/18 07:30 Temperature Pulse Rate 92 H 89 Respiratory Rate Blood Pressure Pulse Oximetry 94 L 04/15/18 08:00 Temperature 97.6 F Pulse Rate 92 H Respiratory Rate 21 Blood Pressure 110/61 Pulse Oximetry 94 L Intake & Output 04/14/18 04/15/18 04/15/18 18:59 06:59 18:59 Intake Total 650 / 650 1045 / 1045 200 / 200 Output Total 0 / 0 Balance 650 / 650 1045 / 1045 200 / 200 Weight 272 lb 7.861 oz Intake: IV 550 / 550 565 / 565 200 / 200 Flexbumin 25% Inj 100 ML @ 60 200 / 200 mls/hr IV.SIG WITH DIALYSIS PRN Rx#:[id number] Zosyn 2.25 GM Premix 2.25 gm In 50 / 50 50 / 50 50 ml @ 100 mls/hr IV.SIG Q8H CHEL Rx#:[id number] NS Inj 1,000 ML @ 1000 mls/hr 500 / 500 IV.SIG BOLUS CHEL Rx#:[id number] Vancomycin Inj 1,500 MG In NS 515 / 515 Inj 500 ML @ 250 mls/hr IV.SIG ONCE ONE Rx#:[id number] Oral 100 / 100 480 / 480 Output: Urine 0 / 0 Other: Date of Last Bowel Movement 04/10/18 Narrative: GENERAL: Well-developed, obese. Lethargic, minimally responsive, no acute distress. NECK: No carotid bruits. No JVD. CARDIOVASCULAR: Regular rate and rhythm. 2/6 XAVIER. RESPIRATORY: Diminished at bases with scattered rhonchi MUSCULOSKELETAL: No clubbing or cyanosis. 1+ generalized edema. NEUROLOGICAL: Lethargic, minimally arousable. Results 04/15/18 03:58 04/15/18 03:58 Cardiac Enzymes 04/14/18 Range/Units 07:18 Troponin I 0.12 H (0.02-0.05) ng/mL CBC 04/15/18 Range/Units 03:58 WBC 11.4 H (4.0-11.0) th/mm3 RBC 3.46 L (4.50-5.90) mil/mm3 Hgb 9.5 L (13.0-17.0) gm/dL Hct 30.3 L (39.0-51.0) % Plt Count 213 (150-450) th/mm3 Neut # (Auto) 9.3 H (1.8-7.7) th/mm3 Lymph # (Auto) 0.6 L (1.0-4.8) th/mm3 Meagher # (Auto) 1.2 H (0.0-0.9) th/mm3 Eos # (Auto) 0.3 (0.0-0.4) th/mm3 Baso # (Auto) 0.0 (0.0-0.2) th/mm3 Comprehensive Metabolic Panel 04/14/18 04/15/18 Range/Units 07:18 03:58 Sodium 134 L 133 L (136-145) meq/L Potassium 4.0 4.4 (3.5-5.1) meq/L Chloride 95 L 95 L (98-107) meq/L Carbon Dioxide 24.2 21.9 (21.0-32.0) meq/L BUN 61 H 71 H (7-18) mg/dL Creatinine 8.42 H 9.46 H (0.60-1.30) mg/dL Calcium 6.2 L* 6.0 L* (8.5-10.1) mg/dL Albumin 3.2 L 3.4 (3.4-5.0) g/dL Intake and Output 04/14/18 04/15/18 04/15/18 22:59 06:59 14:59 Intake Total 650 / 650 1045 / 1045 200 / 200 Output Total 0 / 0 Balance 650 / 650 1045 / 1045 200 / 200 Intake: IV 550 / 550 565 / 565 200 / 200 Flexbumin 25% Inj 100 ML @ 60 200 / 200 mls/hr IV.SIG WITH DIALYSIS PRN Rx#:[id number] Zosyn 2.25 GM Premix 2.25 gm In 50 / 50 50 / 50 50 ml @ 100 mls/hr IV.SIG Q8H CHEL Rx#:[id number] NS Inj 1,000 ML @ 1000 mls/hr 500 / 500 IV.SIG BOLUS CHEL Rx#:[id number] Vancomycin Inj 1,500 MG In NS 515 / 515 Inj 500 ML @ 250 mls/hr IV.SIG ONCE ONE Rx#:[id number] Oral 100 / 100 480 / 480 Output: Urine 0 / 0 Other: Weight 272 lb 7.861 oz - Imaging and Cardiology Imaging: Impressions Chest X-Ray 04/14/18 00:00 CONCLUSION: Increasing density left lung base , atelectasis versus infiltrate. Assessment and Plan - Assessment (1) Supraventricular arrhythmia Code(s): I49.9 - Cardiac arrhythmia, unspecified Status: Acute Plan: Seen in hemodialysis, pending left heart catheterization later today. HD done prior to cath due to fluid overload. Received a 500 mL bolus overnight as well as a 500 mL dose of vancomycin. Pending left heart catheterization results for further POC, per my discussion with Dr. Hidalgo.
[2018-04-15] MEDS ORDERED: MethylPREDNISolone Sod Succinate Inj 40 MG/ML Vial ONE (12:36)
--- NOTE | 2018-04-15 12:44 | P.PNCA ---
Subjective Interval history: Significant shortness of breath today. Patient completed dialysis around 11:30 AM. Patient sitting at the edge of the bed now with progressive dyspnea. Director Payer has been consulted Medications and Allergies Active Medications: Active Medications Hydrocodone Bitart/Acetaminophen (Hunker 10/325) 1 tab PO Q6H PRN PRN Reason: PAIN SCALE 6 TO 10 Last Admin: 04/15/18 01:42 Dose: 1 tab Albuterol (Duoneb Neb (Prn)) 1 ampul NEB Q2HR NEB PRN PRN Reason: WHEEZING Last Admin: 04/15/18 06:05 Dose: 1 ampul Albuterol (Duoneb Neb (Chel)) 1 ampul NEB Q6HR NEB [facility] Last Admin: 04/15/18 09:40 Dose: Not Given Aspirin (Ecotrin) 81 mg PO DAILY [facility] Last Admin: 04/15/18 09:48 Dose: Not Given Atorvastatin Calcium (Lipitor) 40 mg PO HS [facility] Last Admin: 04/14/18 20:11 Dose: 40 mg Bisacodyl (Dulcolax Supp) 10 mg RECTAL DAILY PRN PRN Reason: SEVERE CONSITIPATION Calcium Acetate (Phoslo) 1,334 mg PO TID [facility] Last Admin: 04/15/18 09:49 Dose: Not Given Chlorhexidine Gluconate (Chlorhexidine 2% Cloth) 3 pack TOPICAL DAILY@0400 [facility] Stop: 04/17/18 03:59 Last Admin: 04/15/18 03:42 Dose: Not Given Chlorhexidine Gluconate (Chlorhexidine 2% Cloth) 3 pack TOPICAL DAILY@0400 PRN PRN Reason: Extra cloth needed Stop: 04/17/18 03:59 Cinacalcet (Sensipar) 90 mg PO BID [facility] Last Admin: 04/15/18 09:49 Dose: Not Given Clonidine HCl (Catapres) 0.1 mg PO UNSCH PRN PRN Reason: SEE LABEL COMMENTS Dextrose (D50w Vial) 50 ml IV.PUSH UNSCH PRN PRN Reason: PER HYPOGLYCEMIA PROTOCOL Diphenhydramine HCl (Benadryl) 25 mg PO UNSCH PRN PRN Reason: SEE LABEL COMMENTS Epoetin Gian (Epogen Inj) 4,000 unit IV.PUSH UNSCH PRN PRN Reason: SEE LABEL COMMENTS Last Admin: 04/15/18 09:06 Dose: 4,000 unit Gelatin (Gelfoam 12 Mm/7 Mm Topical) 1 foam TOPICAL PRN PRN PRN Reason: help stop bleeding from site Gentamicin Sulfate (Gentamicin Inj) 20 mg OTHER WITH DIALYSIS PRN PRN Reason: Dwell Gentamycin Lock Glucagon (Glucagon Inj) 1 mg OTHER UNSCH PRN PRN Reason: for Hypoglycemia Protocol Heparin Sodium (Porcine) (Heparin Inj) 5,000 units SQ Q12H [facility] Last Admin: 04/15/18 00:06 Dose: 5,000 units Heparin Sodium (Porcine) (Heparin Inj) 8,000 units OTHER WITH DIALYSIS PRN PRN Reason: for machine prime Heparin Sodium (Porcine) (Heparin Inj) 1,000 units OTHER WITH DIALYSIS PRN PRN Reason: Dwell Heparin to Fill Catheter Albumin Human (Flexbumin 25% Inj) 100 mls @ 60 mls/hr IV.SIG WITH DIALYSIS PRN PRN Reason: hypotension / volume replace Last Infusion: 04/15/18 09:14 Dose: Infused Sodium Chloride (Ns Inj) 1,000 mls @ 0 mls/hr OTHER .Q0M PRN PRN Reason: for prime and rinse back Sodium Chloride (Ns Inj) 1,000 mls @ 200 mls/hr OTHER .Q5H PRN PRN Reason: for dialyzer flush PRN Sodium Chloride (Ns Inj) 1,000 mls @ 0 mls/hr IV.CONT .Q0M PRN PRN Reason: hypotension / volume replace Nitroglycerin/Dextrose (Nitroglycerin Drip Premix) 50 mg in 250 mls @ 1.5 mls/ hr IV.CONT TITRATE PRN; Protocol PRN Reason: Per Protocol Piperacillin/Tazobactam/Dextrose (Zosyn 2.25 Gm Premix) 2.25 gm in 50 mls @ 100 mls/hr IV.SIG Q8H [facility] Last Infusion: 04/15/18 03:42 Dose: Infused Vancomycin HCl 1,000 mg/ (Sodium Chloride) 250 mls @ 250 mls/hr IV.SIG WITH DIALYSIS CHEL Insulin Aspart (Novolog Insulin Correctional Sugar Inj) 0 unit SQ Q6HR [facility]; Protocol Last Admin: 04/15/18 06:15 Dose: Not Given Isosorbide Mononitrate (Imdur) 120 mg PO DAILY@0700 [facility] Last Admin: 04/15/18 06:05 Dose: 120 mg Lactulose (Lactulose Liq) 30 ml PO DAILY PRN PRN Reason: SEVERE CONSITIPATION Last Admin: 04/15/18 01:42 Dose: 30 ml Mannitol (Mannitol Inj) 12.5 gm IV.PUSH UNSCH PRN PRN Reason: hypotension / volume replace Nitroglycerin (Nitrostat Sl) 0.4 mg SL Q5M PRN PRN Reason: CHEST PAIN Ondansetron HCl (Zofran Inj) 4 mg IV.PUSH Q6H PRN PRN Reason: NAUSEA OR VOMITING Pantoprazole Sodium (Protonix Inj) 40 mg IV.PUSH DAILY [facility] Last Admin: 04/15/18 09:49 Dose: Not Given Senna/Docusate Sodium (Maribel-Colace) 1 tab PO BID [facility] Last Admin: 04/15/18 09:49 Dose: Not Given Sennosides (Senokot) 17.2 mg PO Q12H PRN PRN Reason: Moderate Constipation Sodium Chloride (Ns Flush) 2 ml IV.FLUSH UNSCH PRN PRN Reason: FLUSH AFTER USING IV ACCESS Sodium Chloride (Ns Flush) 2 ml IV.FLUSH BID [facility] Last Admin: 04/14/18 20:48 Dose: 2 ml Sodium Chloride (Ns Flush) 5 ml IV.FLUSH PRN PRN PRN Reason: flush each lumen during HD Allergies Allergy/AdvReac Type Severity Reaction Status Date / Time No Known Allergies Allergy Verified 04/11/18 10:33 Home Medications Medication Instructions Recorded Confirmed Type furosemide 80 mg PO DAILY 11/10/17 04/11/18 History insulin glargine [Lantus U-100 25 unit SUB-Q HS 11/10/17 04/11/18 History Insulin] prednisone 5 mg PO DAILY 11/10/17 04/11/18 History sevelamer carbonate [Renvela] 1,600 mg PO TIDAC 11/10/17 04/11/18 History albuterol sulfate [Ventolin HFA] 2 puff INHALATION Q4-6H PRN 04/11/18 04/11/18 History Physical Exam Vital signs: Vital Signs 04/14/18 15:00 04/14/18 16:00 04/14/18 19:00 Temperature 98.6 F Pulse Rate 87 88 86 Respiratory Rate 14 24 Blood Pressure 109/61 Pulse Oximetry 93 L 04/14/18 20:00 04/14/18 21:00 04/14/18 21:34 Temperature 98.6 F Pulse Rate 90 90 93 H Respiratory Rate 24 18 Blood Pressure 122/78 Pulse Oximetry 96 94 L 04/14/18 22:00 04/14/18 23:00 04/15/18 00:00 Temperature 98.5 F Pulse Rate 92 H 92 H 90 Respiratory Rate 24 Blood Pressure 110/68 Pulse Oximetry 92 L 04/15/18 01:00 04/15/18 02:00 04/15/18 03:00 Temperature Pulse Rate 88 90 89 Respiratory Rate Blood Pressure Pulse Oximetry 04/15/18 03:39 04/15/18 04:00 04/15/18 05:00 Temperature 99.4 F Pulse Rate 90 88 92 H Respiratory Rate 18 22 Blood Pressure 138/63 Pulse Oximetry 92 L 04/15/18 06:00 04/15/18 07:00 04/15/18 07:30 Temperature Pulse Rate 92 H 89 Respiratory Rate Blood Pressure Pulse Oximetry 94 L 04/15/18 08:00 Temperature 97.6 F Pulse Rate 92 H Respiratory Rate 21 Blood Pressure 110/61 Pulse Oximetry 94 L Intake & Output 04/14/18 04/15/18 04/15/18 18:59 06:59 18:59 Intake Total 650 / 650 1045 / 1045 200 / 200 Output Total 0 / 0 2800 / 2800 Balance 650 / 650 1045 / 1045 -2600 / -2600 Weight 123.6 kg Intake: IV 550 / 550 565 / 565 200 / 200 Flexbumin 25% Inj 100 ML @ 60 200 / 200 mls/hr IV.SIG WITH DIALYSIS PRN Rx#:[id number] Zosyn 2.25 GM Premix 2.25 gm In 50 / 50 50 / 50 50 ml @ 100 mls/hr IV.SIG Q8H CHEL Rx#:[id number] NS Inj 1,000 ML @ 1000 mls/hr 500 / 500 IV.SIG BOLUS CHEL Rx#:[id number] Vancomycin Inj 1,500 MG In NS 515 / 515 Inj 500 ML @ 250 mls/hr IV.SIG ONCE ONE Rx#:[id number] Oral 100 / 100 480 / 480 Output: Urine 0 / 0 Hemodialysis Amount 2800 / 2800 Other: Date of Last Bowel Movement 04/10/18 - Constitutional mild distress - Routine HEENT Exam Head: Present: normocephalic Eye: Absent: PERRL ENT: Present: mucous membranes moist - Routine Neck Exam Absent: JVD - Routine Respiratory Exam Present: CTA bilaterally, wheezes, crackles - Routine Cardiovascular Exam Present: RRR. Absent: murmur - Routine Abdominal Exam Present: soft, normoactive bowel sounds - Routine Extremities Exam Absent: edema Results 04/15/18 03:58 04/15/18 03:58 Cardiac Enzymes 04/14/18 Range/Units 07:18 Troponin I 0.12 H (0.02-0.05) ng/mL CBC 04/15/18 Range/Units 03:58 WBC 11.4 H (4.0-11.0) th/mm3 RBC 3.46 L (4.50-5.90) mil/mm3 Hgb 9.5 L (13.0-17.0) gm/dL Hct 30.3 L (39.0-51.0) % Plt Count 213 (150-450) th/mm3 Neut # (Auto) 9.3 H (1.8-7.7) th/mm3 Lymph # (Auto) 0.6 L (1.0-4.8) th/mm3 Rabun # (Auto) 1.2 H (0.0-0.9) th/mm3 Eos # (Auto) 0.3 (0.0-0.4) th/mm3 Baso # (Auto) 0.0 (0.0-0.2) th/mm3 Comprehensive Metabolic Panel 04/14/18 04/15/18 Range/Units 07:18 03:58 Sodium 134 L 133 L (136-145) meq/L Potassium 4.0 4.4 (3.5-5.1) meq/L Chloride 95 L 95 L (98-107) meq/L Carbon Dioxide 24.2 21.9 (21.0-32.0) meq/L BUN 61 H 71 H (7-18) mg/dL Creatinine 8.42 H 9.46 H (0.60-1.30) mg/dL Calcium 6.2 L* 6.0 L* (8.5-10.1) mg/dL Albumin 3.2 L 3.4 (3.4-5.0) g/dL Intake and Output 04/14/18 04/15/18 04/15/18 22:59 06:59 14:59 Intake Total 650 / 650 1045 / 1045 200 / 200 Output Total 0 / 0 2800 / 2800 Balance 650 / 650 1045 / 1045 -2600 / -2600 Intake: IV 550 / 550 565 / 565 200 / 200 Flexbumin 25% Inj 100 ML @ 60 200 / 200 mls/hr IV.SIG WITH DIALYSIS PRN Rx#:[id number] Zosyn 2.25 GM Premix 2.25 gm In 50 / 50 50 / 50 50 ml @ 100 mls/hr IV.SIG Q8H CHEL Rx#:[id number] NS Inj 1,000 ML @ 1000 mls/hr 500 / 500 IV.SIG BOLUS CHEL Rx#:[id number] Vancomycin Inj 1,500 MG In NS 515 / 515 Inj 500 ML @ 250 mls/hr IV.SIG ONCE ONE Rx#:[id number] Oral 100 / 100 480 / 480 Output: Urine 0 / 0 Hemodialysis Amount 2800 / 2800 Other: Weight 123.6 kg - Imaging and Cardiology Imaging: Impressions Chest X-Ray 04/14/18 00:00 CONCLUSION: Increasing density left lung base , atelectasis versus infiltrate. Assessment and Plan - Plan 57-year-old male with CAD s/p 6v CABG 2003 and PCI to LCx 05/18 grafts patent on LHC, ESRD on home HD 4x per week, HTN, HLD, DM. The patient was at [place] getting colonoscopy done 04/11/18 and had reported asystolic cardiac arrest. Asystolic arrest during anesthesia for colonoscopy: No strips available, however no noted VT/VF. Minimal troponin elevation in the setting of ESRD. Intermittent chest pain symptoms. When the patient was tachycardic he did have ST depression. Discussed the case with the hospitalist, planning to potentially proceed with cardiac catheterization, but the patient is unable to lie flat at this time due to progressive symptoms. Shortness of breath appears to be more pulmonary in etiology and suspected aspiration pneumonia. Continue IV antibiotics. We will not perform cardiac catheterization today as the patient would likely need to be intubated to do so. We will see if we can optimize him over the weekend and consider cardiac catheterization early next week if still clinically indicated.
--- NOTE | 2018-04-15 12:46 | P.PNCC ---
Subjective Subjective Remarks/Hospital Course: The patient is a 57-year-old male with multiple medical comorbidities which include end-stage renal disease, on hemodialysis, being followed by Dr. Vogel, status post renal transplant in 2004, hypertension, diabetes mellitus, coronary artery disease with previous coronary artery bypass grafting in 2003. The patient was getting his colonoscopy and while being sedated, he had an asystolic episode. He received 2 rounds of epinephrine and chest compressions performed. He was initially intubated, and on arrival to the ER, he was extubated. The patient was awake, alert, and oriented. He does not recall anything that happened. He reports mild chest discomfort on the right side of his chest wall due to chest compressions. No other complaints were reported. He denies any shortness of breath, orthopnea, PND, or edema of lower extremities. Also, he denies any cough, wheezing or constitutional symptoms 2 Reconsult for resp distress. Patient reports SOB on 4L oxygen, tachycardic and tachypneic. s/p HD earlier today with removal 2.8L. CXR from yesterday increasing density left lung base. Afebrile. Objective Vital Signs / I&O: Vital Signs 04/14/18 15:00 04/14/18 16:00 04/14/18 19:00 Temperature 98.6 F Pulse Rate 87 88 86 Respiratory Rate 14 24 Blood Pressure 109/61 Pulse Oximetry 93 L 04/14/18 20:00 04/14/18 21:00 04/14/18 21:34 Temperature 98.6 F Pulse Rate 90 90 93 H Respiratory Rate 24 18 Blood Pressure 122/78 Pulse Oximetry 96 94 L 04/14/18 22:00 04/14/18 23:00 04/15/18 00:00 Temperature 98.5 F Pulse Rate 92 H 92 H 90 Respiratory Rate 24 Blood Pressure 110/68 Pulse Oximetry 92 L 04/15/18 01:00 04/15/18 02:00 04/15/18 03:00 Temperature Pulse Rate 88 90 89 Respiratory Rate Blood Pressure Pulse Oximetry 04/15/18 03:39 04/15/18 04:00 04/15/18 05:00 Temperature 99.4 F Pulse Rate 90 88 92 H Respiratory Rate 18 22 Blood Pressure 138/63 Pulse Oximetry 92 L 04/15/18 06:00 04/15/18 07:00 04/15/18 07:30 Temperature Pulse Rate 92 H 89 Respiratory Rate Blood Pressure Pulse Oximetry 94 L 04/15/18 08:00 Temperature 97.6 F Pulse Rate 92 H Respiratory Rate 21 Blood Pressure 110/61 Pulse Oximetry 94 L Intake & Output 04/14/18 04/15/18 04/15/18 18:59 06:59 18:59 Intake Total 650 / 650 1045 / 1045 200 / 200 Output Total 0 / 0 2800 / 2800 Balance 650 / 650 1045 / 1045 -2600 / -2600 Weight 123.6 kg Intake: IV 550 / 550 565 / 565 200 / 200 Flexbumin 25% Inj 100 ML @ 60 200 / 200 mls/hr IV.SIG WITH DIALYSIS PRN Rx#:[id number] Zosyn 2.25 GM Premix 2.25 gm In 50 / 50 50 / 50 50 ml @ 100 mls/hr IV.SIG Q8H [place] Rx#:[id number] NS Inj 1,000 ML @ 1000 mls/hr 500 / 500 IV.SIG BOLUS [place] Rx#:[id number] Vancomycin Inj 1,500 MG In NS 515 / 515 Inj 500 ML @ 250 mls/hr IV.SIG ONCE ONE Rx#:[id number] Oral 100 / 100 480 / 480 Output: Urine 0 / 0 Hemodialysis Amount 2800 / 2800 Other: Date of Last Bowel Movement 04/10/18 Result Diagrams: 04/15/18 03:58 04/15/18 03:58 Other Results: Laboratory Results - last 12 hr 04/15/18 04/15/18 04/15/18 03:58 03:58 05:52 WBC 11.4 H RBC 3.46 L Hgb 9.5 L Hct 30.3 L MCV 87.8 MCH 27.6 MCHC 31.4 L RDW 17.9 H Plt Count 213 MPV 8.6 Neut % (Auto) 81.8 H Lymph % (Auto) 5.4 L Dup[place] % (Auto) 10.4 H Eos % (Auto) 2.2 Baso % (Auto) 0.2 Neut # (Auto) 9.3 H Lymph # (Auto) 0.6 L [place] # (Auto) 1.2 H Eos # (Auto) 0.3 Baso # (Auto) 0.0 WBC Differential . Differential Comment Auto diff final Sodium 133 L Potassium 4.4 Chloride 95 L Carbon Dioxide 21.9 Anion Gap 16 H BUN 71 H Creatinine 9.46 H Estimated GFR 6 L POC Glucose 160 H Random Glucose 138 H Calcium 6.0 L* Calcium Adj for Albumin 6.5 L* Albumin 3.4 04/15/18 04/15/18 11:35 12:29 WBC RBC Hgb Hct MCV MCH MCHC RDW Plt Count MPV Neut % (Auto) Lymph % (Auto) [place] % (Auto) Eos % (Auto) Baso % (Auto) Neut # (Auto) Lymph # (Auto) [place] # (Auto) Eos # (Auto) Baso # (Auto) WBC Differential Differential Comment Sodium Potassium Chloride Carbon Dioxide Anion Gap BUN Creatinine Estimated GFR POC Glucose 128 H 139 H Random Glucose Calcium Calcium Adj for Albumin Albumin Imaging: Chest CTA 04/12/18 00:00 CONCLUSION: 1. No CT evidence for pulmonary artery embolism as questioned. 2. Cardiomegaly with trace bilateral pleural effusions and mild airspace consolidation at the lung bases which may reflect compressive atelectasis. Differential considerations include aspiration in the appropriate clinical setting. 3. Trace perihepatic ascites fluid. Chest X-Ray 04/14/18 00:00 CONCLUSION: Increasing density left lung base , atelectasis versus infiltrate. Objective Remarks: GENERAL: Patient is 67 yo tachycardic sitting in bed in mild-mod resp distress SKIN: Warm and dry. HEAD: Normocephalic. EYES: No scleral icterus. No injection or drainage. NECK: Supple, trachea midline. No JVD or lymphadenopathy. CARDIOVASCULAR: Regular rate and rhythm without murmurs, gallops, or rubs. RESPIRATORY: Breath sounds equal bilaterally. Scattered wheezing and rhonchi GASTROINTESTINAL: Abdomen soft, non-tender, nondistended. MUSCULOSKELETAL: No cyanosis,+ edema. Neuro: Awake and alert. Assessment and Plan - Assessment and Plan Plan: 1. Respiratory insufficiency. 2. Status post cardiopulmonary arrest, asystolic event during colonoscopy. 3. ESRD, on hemodialysis. 4. Leukocytosis. 5. Anemia. 6. Hypocalcemia. 7. Hypertension. 8. Diabetes mellitus. 9. COPD 10. Previous renal transplant in 2004. 11. CAD/CABG in 2003. 12. GERD 13. SVT Plan Neuro: Monitor neuro status closely and avoid any sedatives. Pulm: Continue with oxygen and maintain sats >92%. Bronchodilators( DuoNeb, Symbicort Place on BIPAP and check ABG/CXR STAT if there is any worsening any resp status will proceed with intubation and mechanical ventilation. Place on Solumedrol 80mg IV Q8 CV: Monitor HR and BP and maintain MAP >65 mmHg. Cards is following- Dr. Arredondo. For [facility] when resp status imrpoves Echo showed EF 50-55% On ASA, Lipitor, Imdur : Monitor renal function, I's and O's and avoid nephrotoxins. Renal is following. s/p HD today with removal 2.8L On prednisone 5 mg daily ID: Continue abx on Zosyn/Vanco monitor for signs of infections ( fever, WBC) Check sputum cx. GI: On Protonix 40 mg daily. Heme: Monitor CBC. Endo: SSI with Accu-Cheks for glycemic control. GI prophylaxis- on Protonix 40 mg daily DVT prophylaxis- on SCD and heparin subcu Level 3
--- NOTE | 2018-04-15 13:17 | XR ---
EXAM DATE: 04/15/2018 12:56 PM EST AGE/SEX: 57 years / Male INDICATIONS: Shortness of breath. CLINICAL DATA: This is the patient's subsequent encounter. Patient reports that signs and symptoms h ave been present for 1 day and indicates a pain score of Nonresponsive. MEDICAL/SURGICAL HISTORY: . Myocardial infarction. Cardiovascular disease. CABG. COMPARISON: [facility] [place], CHEST 1V SINGLE AP, 04/14/2018. . FINDINGS: The heart is markedly enlarged. Median sternotomy wires from previous open heart surgery are noted. There are persistent mild vascular congestive changes and increased density in the left lung base. No significant change is noted compared to the prior study. CONCLUSION: Cardiomegaly with Central vascular prominence and left basilar airspace disease; unchanged. Electronically signed by: Alfonso Alberto MD Board Certified Radiologist 04/15/2018 1:16 PM EST
[2018-04-15 13:19] LABS: ABG Base Excess -3.3 mmol/L (-2-2); ABG PCO2 50 mmHg (38-42); ABG PO2 101 mmHG (61-120)
[2018-04-15 14:29] LABS: ABG Base Excess -3.1 mmol/L (-2-2); ABG PCO2 54 mmHg (38-42); ABG PO2 98 mmHG (61-120)
--- NOTE | 2018-04-15 14:45 | ECG ---
Date Performed: 04/14/2018 Time Performed: 16:21:34 PTAGE: 57 years EKG: Sinus rhythm Possible inferior infarct - age undetermined Lateral ST-T changes may be due to myocardial ischemia Low QRS voltages in precordial leads Compared to previous tracing premature complexes are no longer e vident. There has been an overall improvement in the nonspecific ST T wave changes. Abnormal ECG PREVIOUS TRACING : 04/11/18 DOCTOR: Ashley Blanco Interpretating Date/Time 04/15/2018 14:37:32
--- NOTE | 2018-04-15 14:45 | ECG ---
Date Performed: 04/14/2018 Time Performed: 18:15:34 PTAGE: 57 years EKG: Sinus rhythm with PAC(s) Lead(s) unsuitable for analysis: V5 Short OH interval Possible inferior infarct - age un determined Lateral ST-T changes are nonspecific Compared to previous tracing the supraventricular tac hycardia is resolved. The nonspecific ST T wave changes persist. EKG continues to show a possible inf erior wall infarct of indeterminate age Abnormal ECG PREVIOUS TRACING : 04/14/2018 16.21 DOCTOR: Ashley Blanco Interpretating Date/Time 04/15/2018 14:40:20
--- NOTE | 2018-04-15 14:45 | ECG ---
Date Performed: 04/14/2018 Time Performed: 16:55:42 PTAGE: 57 years EKG: Supraventricular tachycardia of uncertain mechanism Possible inferior infarct - age undeter mined Ant/septal and lateral ST-T changes may be due to myocardial ischemia Compared to previous trac ing the patient has developed a marked tachycardia with a marked increase in the nonspecific ST segme nt changes. In addition there is ST segment elevation inferiorly and acute inferior wall injury that is new cannot be excluded. Clinical correlation to assess the serial changes will be extremely import ant. Abnormal ECG PREVIOUS TRACING : 04/11/2018 10.22 DOCTOR: Ashley Blanco Interpretating Date/Time 04/15/2018 14:39:19
[2018-04-15 16:10] LABS: ABG Base Excess -3.8 mmol/L (-2-2); ABG PCO2 53 mmHg (38-42); ABG PO2 112 mmHG (61-120)
[2018-04-15] MEDS ORDERED: Propofol Inj 500 MG/50 ML Vial ONE (16:18)
[2018-04-15] MEDS ORDERED: Etomidate Inj 40 MG/20 ML Vial IV.PUSH ONE (16:19)
--- NOTE | 2018-04-15 16:47 | P.PCN ---
Date of procedure: 04/15/18 Pre-op diagnosis: Resp failure Post-op diagnosis: same Procedure: Procedure: Intubation for worsening resp status and mental status DESCRIPTION OF PROCEDURE I The patient was lying in the supine position. Preoxygenation via FM was provided . The patient had continuous cardiac as well as pulse oximetry monitoring during the procedure. Rapid sequence induction was provided by administration of Diprivan 40mics total and Etomidate 20mg. A GlideScope was used to directly visualize the vocal cords. A 8 mm endotracheal tube was visualized advancing between the cords to a level of 23 cm at the lip. The stylette was then removed and discarded. Tube placement was also noted by fogging in the tube, equal and bilateral breath sounds, no sounds over the epigastrium, and end-tidal colorimetric monitoring. The cuff was then inflated with 10ccs of air and the tube was secured . A good pulse oximetry wave form was seen on the monitor throughout the procedure. Patient was given Rocuronium 30 mg IV for vent synchrony. A portable chest x-ray has been ordered for placement . The patient tolerated the procedure well.
[2018-04-15] MEDS: Propofol 1000 mg/100 ml Inj 1,000 MG/100 ML BOTTLE IV.CONT PRN ×2 (17:32→21:21)
--- NOTE | 2018-04-15 18:00 | XR ---
EXAM DATE: 04/15/2018 5:47 PM EST AGE/SEX: 57 years / Male INDICATIONS: Post intubation CLINICAL DATA: This is the patient's subsequent encounter. Patient reports that signs and symptoms h ave been present for 4 - 6 days and indicates a pain score of Nonresponsive. MEDICAL/SURGICAL HISTORY: . Myocardial infarction. Cardiovascular disease. CABG. COMPARISON: [facility], CHEST 1V SINGLE AP, 04/15/2018. . FINDINGS: A single AP erect portable view of the chest was obtained and again demonstrates the patient is stat us post median sternotomy for bypass grafting procedure an endotracheal tube has been placed with the tip above the level of thoracic inlet approximately 10 cm above the taylor. The heart size remains m oderately enlarged. There are no new confluent infiltrates or effusions. Overlying retrocardiac leads present. CONCLUSION: 1. Interval placement of endotracheal tube with the tip above the level of thoracic inlet. This is l ocated approximately 10 cm above the taylor. 2. Stable appearance with moderate cardiomegaly and no congestive heart failure. Electronically signed by: Desmond Mccall MD Board Certified Radiologist 04/15/2018 5:59 PM EST
[2018-04-15 18:15] LABS: ABG Base Excess -4.4 mmol/L (-2-2); ABG PCO2 58 mmHg (38-42); ABG PO2 139 mmHG (61-120)
[2018-04-15] MEDS ORDERED: Calcium Gluconate Inj 2 GM in Sodium Chlor 0.9% Inj 100 ML IV.SIG ONE (19:42)
[2018-04-15] MEDS: MethylPREDNISolone Sod Succinate Inj 40 MG/ML Vial IV.PUSH SCH (20:37)
[2018-04-16 01:01] LABS: ABG Base Excess -3.8 mmol/L (-2-2); ABG PCO2 50 mmHg (38-42); ABG PO2 168 mmHG (61-120)
[2018-04-16] MEDS: Heparin - SQ 10,000 UNITS/ML Vial SQ SCH ×3 (01:17→23:59)
[2018-04-16] MEDS: Propofol 1000 mg/100 ml Inj 1,000 MG/100 ML BOTTLE IV.CONT PRN ×7 (01:18→23:40)
[2018-04-16] MEDS: Piperacil/Tazo 2.25 GM Premix 2.25 GM/50 ML PIGGYBACK IV.SIG SCH ×3 (01:18→17:24)
[2018-04-16] MEDS: Chlorhexidine Gluconate 2% 1 Pack (2 Cloths) TOPICAL SCH (03:36)
--- NOTE | 2018-04-16 03:51 | XR ---
EXAM DATE: 04/16/2018 3:40 AM EST AGE/SEX: 57 years / Male INDICATIONS: Shortness of breath, possible pulmonary disease. CLINICAL DATA: This is the patient's subsequent encounter. Patient reports that signs and symptoms h ave been present for 4 - 6 days and indicates a pain score of Nonresponsive. MEDICAL/SURGICAL HISTORY: Myocardial infarction. Cardiovascular disease. CABG. COMPARISON: [facility], CHEST 1V SINGLE AP, 04/15/2018. . FINDINGS: The ET tube is well placed. The patient is status post sternotomy. The cardiac silhouette is enlarged . There are diffuse increased interstitial markings. There is some hazy density seen over the bases. CONCLUSION: Cardiomegaly. Diffuse increased interstitial markings likely related to edema. Hazy density at the bases which may be related to effusions. Electronically signed by: Homero Kelly MD Board Certified Radiologist 04/16/2018 3:50 AM EST
[2018-04-16] MEDS: MethylPREDNISolone Sod Succinate Inj 40 MG/ML Vial IV.PUSH SCH ×3 (04:10→20:54)
[2018-04-16 05:45] LABS: Baso % (Auto) 0.1 % (0.0-2.0); Hematocrit 26.7 % (39.0-51.0); Hemoglobin 8.5 gm/dL (13.0-17.0); Lymph # (Auto) 0.2 th/mm3 (1.0-4.8); Lymph % (Auto) 3.3 % (9.0-44.0); Mean Corpuscular HGB Conc 31.9 % (32.0-36.0); Mean Corpuscular Hemoglobin 27.9 pg (27.0-34.0); Mean Corpuscular Volume 87.7 fL (80.0-100.0); Mean Platelet Volume 8.7 fL (7.0-11.0); Mono # (Auto) 0.2 th/mm3 (0.0-0.9); Mono % (Auto) 2.5 % (0.0-8.0); Neut % (Auto) 94.1 % (16.0-70.0); Platelet Count 168 th/mm3 (150-450); Red Blood Count 3.05 mil/mm3 (4.50-5.90); Red Cell Distribution Width 17.7 % (11.6-17.2); White Blood Count 7.4 th/mm3 (4.0-11.0)
[2018-04-16 06:17] LABS: Calcium 6.4 mg/dL (8.5-10.1); Carbon Dioxide 21.1 meq/L (21.0-32.0); Potassium 4.6 meq/L (3.5-5.1); Total Protein 6.9 g/dL (6.4-8.2)
[2018-04-16] MEDS: Insulin NovoLOG Aspart Correctional Sugar Inj SQ SCH ×4 (06:24→23:57)
[2018-04-16] MEDS: Isosorbide Mononitrate 60 MG ER 24HR Tablet (Imdur) PO SCH (06:38)
--- NOTE | 2018-04-16 07:48 | XR ---
EXAM DATE: 04/16/2018 7:41 AM EST AGE/SEX: 57 years / Male INDICATIONS: OG tube placement. CLINICAL DATA: This is the patient's subsequent encounter. Patient reports that signs and symptoms h ave been present for 2 weeks and indicates a pain score of Nonresponsive. MEDICAL/SURGICAL HISTORY: Non-responsive. Non-responsive. COMPARISON: [facility] [place], CHEST 1V SINGLE AP, 04/16/2018. [facility] [place], CTA PULMONARY W CONTRAST W 3D, 04/12/2018. . FINDINGS: Endotracheal tube with the tip approximately 4 cm beyond the level of the clavicles. This is advanced as compared to the prior exam. Orogastric tube with the proximal port at at the level the diaphragm. Recommend advancement. Stable cardiomegaly with hypoinflation of the lungs and diffuse pulmonary vascular pressure prominenc e. Diffuse interstitial prominence. CONCLUSION: 1. Endotracheal tube appears to have been advanced and now projects 4 cm below the level of clavicles . 2. Orogastric tube with the proximal port at the level of the diaphragm. Recommend advancement. 3. Cardiomegaly with radiographic findings consistent with volume overload versus congestive heart fa ilure. Electronically signed by: Minna Otero MD Board Certified Radiologist 04/16/2018 7:46 AM EST
[2018-04-16] MEDS: Pantoprazole Inj 40 MG Vial IV.PUSH SCH (08:50)
[2018-04-16] MEDS: Calcium Acetate 667 MG Capsule PO SCH ×3 (08:50→17:23)
[2018-04-16] MEDS: Senna/Docusate Sodium 8.6/50 MG Tablet PO SCH ×2 (08:50→20:53)
--- NOTE | 2018-04-16 09:13 | P.PNCC ---
Subjective Subjective Remarks/Hospital Course: The patient is a 57-year-old male with multiple medical comorbidities which include end-stage renal disease, on hemodialysis, being followed by Dr. Vogel, status post renal transplant in 2004, hypertension, diabetes mellitus, coronary artery disease with previous coronary artery bypass grafting in 2003. The patient was getting his colonoscopy and while being sedated, he had an asystolic episode. He received 2 rounds of epinephrine and chest compressions performed. He was initially intubated, and on arrival to the ER, he was extubated. The patient was awake, alert, and oriented. He does not recall anything that happened. He reports mild chest discomfort on the right side of his chest wall due to chest compressions. No other complaints were reported. He denies any shortness of breath, orthopnea, PND, or edema of lower extremities. Also, he denies any cough, wheezing or constitutional symptoms 04/15 Reconsult for resp distress. Patient reports SOB on 4L oxygen, tachycardic and tachypneic. s/p HD earlier today with removal 2.8L. CXR from yesterday increasing density left lung base. Afebrile. 04/16 Patient was intubated yesterday sedated with Diprivan. On PRVC with PEEP:5 and FIO2 50%. Afebrile. Objective Vital Signs / I&O: Vital Signs 04/15/18 12:00 04/15/18 12:48 04/15/18 15:00 Temperature 98.3 F Pulse Rate 124 H 120 H Respiratory Rate 22 Blood Pressure 112/66 Pulse Oximetry 90 L 98 04/15/18 15:31 04/15/18 16:00 04/15/18 16:52 Temperature 98 F Pulse Rate 90 140 H Respiratory Rate 12 20 16 Blood Pressure 123/62 Pulse Oximetry 98 96 100 04/15/18 17:00 04/15/18 18:00 04/15/18 19:00 Temperature Pulse Rate 78 90 76 Respiratory Rate Blood Pressure Pulse Oximetry 04/15/18 20:00 04/15/18 20:17 04/15/18 21:00 Temperature 98.9 F Pulse Rate 83 87 76 Respiratory Rate 20 24 Blood Pressure 112/86 Pulse Oximetry 97 96 04/15/18 22:00 04/15/18 23:00 04/15/18 23:54 Temperature Pulse Rate 79 78 Respiratory Rate 18 Blood Pressure Pulse Oximetry 99 04/15/18 23:57 04/16/18 00:00 04/16/18 00:15 Temperature Pulse Rate 79 78 77 Respiratory Rate 18 8 L 10 L Blood Pressure 99/58 L 102/57 L Pulse Oximetry 98 98 04/16/18 01:00 04/16/18 02:00 04/16/18 03:00 Temperature Pulse Rate 77 79 80 Respiratory Rate Blood Pressure Pulse Oximetry 04/16/18 03:54 04/16/18 04:00 04/16/18 05:00 Temperature 98.9 F Pulse Rate 75 76 79 Respiratory Rate 20 18 Blood Pressure 106/56 L Pulse Oximetry 94 L 94 L 04/16/18 06:00 04/16/18 07:00 04/16/18 07:49 Temperature Pulse Rate 78 80 Respiratory Rate 17 22 Blood Pressure Pulse Oximetry 94 L 04/16/18 07:59 Temperature Pulse Rate Respiratory Rate 16 Blood Pressure Pulse Oximetry 93 L Intake & Output 04/15/18 04/16/18 04/16/18 18:59 06:59 18:59 Intake Total 250 / 250 470 / 470 Output Total 2800 / 2800 0 / 0 Balance -2550 / -2550 470 / 470 Weight 124.1 kg Intake: IV 250 / 250 470 / 470 Diprivan 1000 mg/100 ml Inj 1, 300 / 300 000 mg In 100 ml @ 5 MCG/KG/MIN 3.708 mls/hr IV.CONT TITRATE PRN Rx#:[id number] Flexbumin 25% Inj 100 ML @ 60 200 / 200 mls/hr IV.SIG WITH DIALYSIS PRN Rx#:[id number] Calcium Gluconate Inj 2 GM In 120 / 120 NS Inj 100 ML @ 120 mls/hr IV. SIG ONCE ONE Rx#:[id number] Zosyn 2.25 GM Premix 2.25 gm In 50 / 50 50 / 50 50 ml @ 100 mls/hr IV.SIG Q8H DOMENICO Rx#:[id number] Oral 0 / 0 Output: Urine 0 / 0 0 / 0 Hemodialysis Amount 2800 / 2800 Other: # Bowel Movements 0 Result Diagrams: 04/16/18 04:56 04/16/18 04:56 Other Results: Laboratory Results - last 12 hr 04/15/18 04/15/18 04/16/18 20:30 23:47 04:56 WBC 7.4 RBC 3.05 L Hgb 8.5 L Hct 26.7 L MCV 87.7 MCH 27.9 MCHC 31.9 L RDW 17.7 H Plt Count 168 MPV 8.7 Neut % (Auto) 94.1 H Lymph % (Auto) 3.3 L Beckham % (Auto) 2.5 Eos % (Auto) 0.0 Baso % (Auto) 0.1 Neut # (Auto) 7.0 Lymph # (Auto) 0.2 L Beckham # (Auto) 0.2 Eos # (Auto) 0.0 Baso # (Auto) 0.0 WBC Differential . Differential Comment Auto diff final Puncture Site Right radial Patient Temperature 98.6 O2 Saturation 96 ABG pH 7.27 L* ABG pCO2 50 H ABG pO2 168 H ABG HCO3 22 ABG O2 Content 11.5 L ABG Base Excess -3.8 L ABG Methemoglobin 1.8 Zeferino Test Present Hemoglobin 8.3 L Carboxyhemoglobin 1.6 O2 Delivery Device Ventilator Vent Setting Prvc/ac Inspired O2 100 Critical Value Yes Sodium Potassium Chloride Carbon Dioxide Anion Gap BUN Creatinine Estimated GFR POC Glucose 178 H Random Glucose Calcium Calcium Adj for Albumin Total Bilirubin AST ALT Alkaline Phosphatase Total Protein Albumin 04/16/18 04:56 WBC RBC Hgb Hct MCV MCH MCHC RDW Plt Count MPV Neut % (Auto) Lymph % (Auto) Beckham % (Auto) Eos % (Auto) Baso % (Auto) Neut # (Auto) Lymph # (Auto) Beckham # (Auto) Eos # (Auto) Baso # (Auto) WBC Differential Differential Comment Puncture Site Patient Temperature O2 Saturation ABG pH ABG pCO2 ABG pO2 ABG HCO3 ABG O2 Content ABG Base Excess ABG Methemoglobin Zeferino Test Hemoglobin Carboxyhemoglobin O2 Delivery Device Vent Setting Inspired O2 Critical Value Sodium 136 Potassium 4.6 Chloride 97 L Carbon Dioxide 21.1 Anion Gap 18 H BUN 62 H Creatinine 8.22 H Estimated GFR 7 L POC Glucose Random Glucose 175 H Calcium 6.4 L* Calcium Adj for Albumin 7.2 L* Total Bilirubin 0.5 AST 11 L ALT 17 Alkaline Phosphatase 112 Total Protein 6.9 Albumin 3.0 L Imaging: Chest CTA 04/12/18 00:00 CONCLUSION: 1. No CT evidence for pulmonary artery embolism as questioned. 2. Cardiomegaly with trace bilateral pleural effusions and mild airspace consolidation at the lung bases which may reflect compressive atelectasis. Differential considerations include aspiration in the appropriate clinical setting. 3. Trace perihepatic ascites fluid. Chest X-Ray 04/16/18 07:02 CONCLUSION: 1. Endotracheal tube appears to have been advanced and now projects 4 cm below the level of clavicles. 2. Orogastric tube with the proximal port at the level of the diaphragm. Recommend advancement. 3. Cardiomegaly with radiographic findings consistent with volume overload versus congestive heart failure. Objective Remarks: GENERAL: Patient is 67 yo intubated SKIN: Warm and dry. HEAD: Normocephalic. EYES: No scleral icterus. No injection or drainage. NECK: Supple, trachea midline. No JVD or lymphadenopathy. CARDIOVASCULAR: Regular rate and rhythm without murmurs, gallops, or rubs. RESPIRATORY: Breath sounds equal bilaterally. Scattered wheezing and rhonchi GASTROINTESTINAL: Abdomen soft, non-tender, nondistended. MUSCULOSKELETAL: No cyanosis,+ edema. Neuro: Intubated, sedated. Assessment and Plan - Assessment and Plan Plan: 1. VDRF intubated 04/15 2. s/p post cardiopulmonary arrest, asystolic event during colonoscopy 3. ESRD, on hemodialysis. 4. Leukocytosis. 5. Anemia. 6. Hypocalcemia. 7. Hypertension. 8. Diabetes mellitus. 9. COPD 10. Previous renal transplant in 2004. 11. CAD/CABG in 2003. 12. GERD 13. SVT Plan Neuro: On Diprivan infusion for sedation. Daily sedation vacation. Monitor neuro status closely Pulm: Continue with vent support and maintain sats >92%. On PRVC RR 18, TV 550, IT:0.9, PEEP: 5, FIO2: 50% Bronchodilators, ICU vent bundle Solumedrol 80mg IV Q8. Check ABG CV: Monitor HR and BP and maintain MAP >65 mmHg. Cards is following- Dr. Arredondo. For LHC when resp status improves Echo showed EF 50-55% On ASA, Lipitor, Imdur : Monitor renal function, I's and O's and avoid nephrotoxins. Renal is following. s/p HD 04/15 with removal 2.8L ID: Continue abx on Zosyn/Vanco monitor for signs of infections ( fever, WBC) Check sputum cx. GI: On Protonix 40 mg daily. Start tube feeds- Nepro with goal rate 40ml/hr Heme: Monitor CBC. Endo: SSI with Accu-Cheks for glycemic control. GI prophylaxis- on Protonix 40 mg daily DVT prophylaxis- on SCD and heparin subcu Level 3
[2018-04-16 11:10] LABS: ABG Base Excess -6.1 mmol/L (-2-2); ABG PCO2 36 mmHg (38-42); ABG PO2 81 mmHG (61-120)
--- NOTE | 2018-04-16 11:40 | P.PNNP ---
Subjective Interval history: Patient remain intubated and now on CPAP, remain lethargic. Physical Exam Vital signs: Vital Signs 04/15/18 12:00 04/15/18 12:48 04/15/18 15:00 Temperature 98.3 F Pulse Rate 124 H 120 H Respiratory Rate 22 Blood Pressure 112/66 Pulse Oximetry 90 L 98 04/15/18 15:31 04/15/18 16:00 04/15/18 16:52 Temperature 98 F Pulse Rate 90 140 H Respiratory Rate 12 20 16 Blood Pressure 123/62 Pulse Oximetry 98 96 100 04/15/18 17:00 04/15/18 18:00 04/15/18 19:00 Temperature Pulse Rate 78 90 76 Respiratory Rate Blood Pressure Pulse Oximetry 04/15/18 20:00 04/15/18 20:17 04/15/18 21:00 Temperature 98.9 F Pulse Rate 83 87 76 Respiratory Rate 20 24 Blood Pressure 112/86 Pulse Oximetry 97 96 04/15/18 22:00 04/15/18 23:00 04/15/18 23:54 Temperature Pulse Rate 79 78 Respiratory Rate 18 Blood Pressure Pulse Oximetry 99 04/15/18 23:57 04/16/18 00:00 04/16/18 00:15 Temperature Pulse Rate 79 78 77 Respiratory Rate 18 8 L 10 L Blood Pressure 99/58 L 102/57 L Pulse Oximetry 98 98 04/16/18 01:00 04/16/18 02:00 04/16/18 03:00 Temperature Pulse Rate 77 79 80 Respiratory Rate Blood Pressure Pulse Oximetry 04/16/18 03:54 04/16/18 04:00 04/16/18 05:00 Temperature 98.9 F Pulse Rate 75 76 79 Respiratory Rate 20 18 Blood Pressure 106/56 L Pulse Oximetry 94 L 94 L 04/16/18 06:00 04/16/18 07:00 04/16/18 07:49 Temperature Pulse Rate 78 80 Respiratory Rate 17 22 Blood Pressure Pulse Oximetry 94 L 04/16/18 07:59 04/16/18 08:00 04/16/18 08:15 Temperature 98.7 F Pulse Rate 80 82 Respiratory Rate 16 18 13 Blood Pressure 126/62 131/62 Pulse Oximetry 93 L 94 L 94 L 04/16/18 08:30 04/16/18 08:45 04/16/18 09:00 Temperature Pulse Rate 80 90 80 Respiratory Rate 17 23 16 Blood Pressure 132/62 135/62 129/60 Pulse Oximetry 94 L 93 L 93 L 04/16/18 09:18 04/16/18 09:20 04/16/18 10:00 Temperature Pulse Rate 79 79 80 Respiratory Rate 7 L 2 L Blood Pressure 96/53 L 90/50 L Pulse Oximetry 93 L 92 L 04/16/18 11:00 04/16/18 11:30 Temperature Pulse Rate 82 Respiratory Rate 12 11 L Blood Pressure Pulse Oximetry 97 Intake & Output 04/15/18 04/16/18 04/16/18 18:59 06:59 18:59 Intake Total 250 / 250 470 / 470 150 / 150 Output Total 2800 / 2800 0 / 0 Balance -2550 / -2550 470 / 470 150 / 150 Weight 124.1 kg Intake: IV 250 / 250 470 / 470 150 / 150 Diprivan 1000 mg/100 ml Inj 1, 300 / 300 100 / 100 000 mg In 100 ml @ 5 MCG/KG/MIN 3.708 mls/hr IV.CONT TITRATE PRN Rx#:[id number] Flexbumin 25% Inj 100 ML @ 60 200 / 200 mls/hr IV.SIG WITH DIALYSIS PRN Rx#:[id number] Calcium Gluconate Inj 2 GM In 120 / 120 NS Inj 100 ML @ 120 mls/hr IV. SIG ONCE ONE Rx#:[id number] Zosyn 2.25 GM Premix 2.25 gm In 50 / 50 50 / 50 50 / 50 50 ml @ 100 mls/hr IV.SIG Q8H DOMENICO Rx#:[id number] Oral 0 / 0 Output: Urine 0 / 0 0 / 0 Hemodialysis Amount 2800 / 2800 Other: # Bowel Movements 0 Narrative: GENERAL: Well-developed, obese. Lethargic, minimally responsive, no acute distress. NECK: No carotid bruits. No JVD. CARDIOVASCULAR: Regular rate and rhythm. 2/6 XAVIER. RESPIRATORY: Diminished at bases with scattered rhonchi MUSCULOSKELETAL: No clubbing or cyanosis. 1+ generalized edema. NEUROLOGICAL: Lethargic, minimally arousable. Assessment and Plan - Assessment (1) End stage renal disease Code(s): N18.6 - End stage renal disease Status: Acute Plan: Pateint with ESRD, on Home HD. HD was done yesterday, and tolerated well. -For cardiac catheterization once breathing is better. Now on CPAP and getting ABG. -PhosLo and Sensipar was started. Calcium is still low, replace IV one dose again. HD as needed, post Cardiac Cath. (2) Hypertension Code(s): I10 - Essential (primary) hypertension Status: Acute Qualifiers: Hypertension type: essential hypertension Qualified Code(s): I10 - Essential (primary) hypertension Plan: Blood pressure currently within parameters -Continue to monitor titrate as needed (3) Diabetes Code(s): E11.9 - Type 2 diabetes mellitus without complications Status: Acute Qualifiers: Diabetes mellitus intermediate frame tender insulin use: unspecified residential insulin use status Plan: Monitor blood glucose, follow blood work -Management per internal medicine (4) Cardiopulmonary arrest with successful resuscitation Code(s): I46.9 - Cardiac arrest, cause unspecified Status: Acute Plan: Cardiology on board -cardiac catheterization tomorrow
--- NOTE | 2018-04-16 11:58 | P.PNCA ---
Subjective Interval history: Patient seen and examined. Yesterday with worsening respiratory failure requiring endotracheal intubation and mechanical ventilation. Telemetry with 4beats NSVT and episodes of AF with RVR yesterday, currently NSR. BP soft this AM 90s systolic on sedation and nitrates held. Medications and Allergies Active Medications: Active Medications Hydrocodone Bitart/Acetaminophen ([place] 10/325) 1 tab PO Q6H PRN PRN Reason: PAIN SCALE 6 TO 10 Last Admin: 04/15/18 01:42 Dose: 1 tab Albuterol (Duoneb Neb (Prn)) 1 ampul NEB Q2HR NEB PRN PRN Reason: WHEEZING Last Admin: 04/15/18 06:05 Dose: 1 ampul Albuterol (Duoneb Neb (Chel)) 1 ampul NEB Q4HR NEB [facility] Last Admin: 04/16/18 11:26 Dose: 1 ampul Aspirin (Ecotrin) 81 mg PO DAILY [facility] Last Admin: 04/16/18 08:49 Dose: 81 mg Atorvastatin Calcium (Lipitor) 40 mg PO HS [facility] Last Admin: 04/15/18 20:33 Dose: 40 mg Bisacodyl (Dulcolax Supp) 10 mg RECTAL DAILY PRN PRN Reason: SEVERE CONSITIPATION Calcium Acetate (Phoslo) 1,334 mg PO TID [facility] Last Admin: 04/16/18 08:50 Dose: 1,334 mg Chlorhexidine Gluconate (Chlorhexidine 2% Cloth) 3 pack TOPICAL DAILY@0400 [facility] Stop: 04/17/18 03:59 Last Admin: 04/16/18 03:36 Dose: Not Given Chlorhexidine Gluconate (Chlorhexidine 2% Cloth) 3 pack TOPICAL DAILY@0400 PRN PRN Reason: Extra cloth needed Stop: 04/17/18 03:59 Cinacalcet (Sensipar) 90 mg PO BID [facility] Last Admin: 04/16/18 08:50 Dose: 90 mg Clonidine HCl (Catapres) 0.1 mg PO UNSCH PRN PRN Reason: SEE LABEL COMMENTS Dextrose (D50w Vial) 50 ml IV.PUSH UNSCH PRN PRN Reason: PER HYPOGLYCEMIA PROTOCOL Diphenhydramine HCl (Benadryl) 25 mg PO UNSCH PRN PRN Reason: SEE LABEL COMMENTS Epoetin Gian (Epogen Inj) 4,000 unit IV.PUSH UNSCH PRN PRN Reason: SEE LABEL COMMENTS Last Admin: 04/15/18 09:06 Dose: 4,000 unit Gelatin (Gelfoam 12 Mm/7 Mm Topical) 1 foam TOPICAL PRN PRN PRN Reason: help stop bleeding from site Gentamicin Sulfate (Gentamicin Inj) 20 mg OTHER WITH DIALYSIS PRN PRN Reason: Dwell Gentamycin Lock Glucagon (Glucagon Inj) 1 mg OTHER UNSCH PRN PRN Reason: for Hypoglycemia Protocol Heparin Sodium (Porcine) (Heparin Inj) 5,000 units SQ Q12H [facility] Last Admin: 04/16/18 01:17 Dose: 5,000 units Heparin Sodium (Porcine) (Heparin Inj) 8,000 units OTHER WITH DIALYSIS PRN PRN Reason: for machine prime Heparin Sodium (Porcine) (Heparin Inj) 1,000 units OTHER WITH DIALYSIS PRN PRN Reason: Dwell Heparin to Fill Catheter Albumin Human (Flexbumin 25% Inj) 100 mls @ 60 mls/hr IV.SIG WITH DIALYSIS PRN PRN Reason: hypotension / volume replace Last Infusion: 04/15/18 09:14 Dose: Infused Sodium Chloride (Ns Inj) 1,000 mls @ 0 mls/hr OTHER .Q0M PRN PRN Reason: for prime and rinse back Sodium Chloride (Ns Inj) 1,000 mls @ 200 mls/hr OTHER .Q5H PRN PRN Reason: for dialyzer flush PRN Sodium Chloride (Ns Inj) 1,000 mls @ 0 mls/hr IV.CONT .Q0M PRN PRN Reason: hypotension / volume replace Piperacillin/Tazobactam/Dextrose (Zosyn 2.25 Gm Premix) 2.25 gm in 50 mls @ 100 mls/hr IV.SIG Q8H [facility] Last Infusion: 04/16/18 09:41 Dose: Infused Vancomycin HCl 1,000 mg/ (Sodium Chloride) 250 mls @ 250 mls/hr IV.SIG WITH DIALYSIS CHEL Propofol (Diprivan 1000 Mg/100 Ml Inj) 1,000 mg in 100 mls @ 3.708 mls/hr IV.CONT TITRATE PRN; Protocol PRN Reason: Per Protocol Last Admin: 04/16/18 09:33 Dose: 25 mcg/kg/min, 18.54 mls/hr Calcium Gluconate 2 gm/ Sodium (Chloride) 120 mls @ 120 mls/hr IV.SIG ONCE ONE Stop: 04/16/18 12:59 Insulin Aspart (Novolog Insulin Correctional Sugar Inj) 0 unit SQ Q6HR [facility]; Protocol Last Admin: 04/16/18 06:24 Dose: Not Given Isosorbide Mononitrate (Imdur) 120 mg PO DAILY@0700 [facility] Last Admin: 04/16/18 06:38 Dose: Not Given Lactulose (Lactulose Liq) 30 ml PO DAILY PRN PRN Reason: SEVERE CONSITIPATION Last Admin: 04/15/18 01:42 Dose: 30 ml Mannitol (Mannitol Inj) 12.5 gm IV.PUSH UNSCH PRN PRN Reason: hypotension / volume replace Methylprednisolone Sodium Succinate (Solumedrol Inj) 80 mg IV.PUSH Q8H [facility] Last Admin: 04/16/18 04:10 Dose: 80 mg Nitroglycerin (Nitrostat Sl) 0.4 mg SL Q5M PRN PRN Reason: CHEST PAIN Ondansetron HCl (Zofran Inj) 4 mg IV.PUSH Q6H PRN PRN Reason: NAUSEA OR VOMITING Pantoprazole Sodium (Protonix Inj) 40 mg IV.PUSH DAILY [facility] Last Admin: 04/16/18 08:50 Dose: 40 mg Senna/Docusate Sodium (Maribel-Colace) 1 tab PO BID [facility] Last Admin: 04/16/18 08:50 Dose: 1 tab Sennosides (Senokot) 17.2 mg PO Q12H PRN PRN Reason: Moderate Constipation Sodium Chloride (Ns Flush) 2 ml IV.FLUSH UNSCH PRN PRN Reason: FLUSH AFTER USING IV ACCESS Sodium Chloride (Ns Flush) 2 ml IV.FLUSH BID [facility] Last Admin: 04/16/18 08:50 Dose: 2 ml Sodium Chloride (Ns Flush) 5 ml IV.FLUSH PRN PRN PRN Reason: flush each lumen during HD Allergies Allergy/AdvReac Type Severity Reaction Status Date / Time No Known Allergies Allergy Verified 04/11/18 10:33 Home Medications Medication Instructions Recorded Confirmed Type furosemide 80 mg PO DAILY 11/10/17 04/11/18 History insulin glargine [Lantus U-100 25 unit SUB-Q HS 11/10/17 04/11/18 History Insulin] prednisone 5 mg PO DAILY 11/10/17 04/11/18 History sevelamer carbonate [Renvela] 1,600 mg PO TIDAC 11/10/17 04/11/18 History albuterol sulfate [Ventolin HFA] 2 puff INHALATION Q4-6H PRN 04/11/18 04/11/18 History Physical Exam Vital signs: Vital Signs 04/15/18 12:00 04/15/18 12:48 04/15/18 15:00 Temperature 98.3 F Pulse Rate 124 H 120 H Respiratory Rate 22 Blood Pressure 112/66 Pulse Oximetry 90 L 98 04/15/18 15:31 04/15/18 16:00 04/15/18 16:52 Temperature 98 F Pulse Rate 90 140 H Respiratory Rate 12 20 16 Blood Pressure 123/62 Pulse Oximetry 98 96 100 04/15/18 17:00 04/15/18 18:00 04/15/18 19:00 Temperature Pulse Rate 78 90 76 Respiratory Rate Blood Pressure Pulse Oximetry 04/15/18 20:00 04/15/18 20:17 04/15/18 21:00 Temperature 98.9 F Pulse Rate 83 87 76 Respiratory Rate 20 24 Blood Pressure 112/86 Pulse Oximetry 97 96 04/15/18 22:00 04/15/18 23:00 04/15/18 23:54 Temperature Pulse Rate 79 78 Respiratory Rate 18 Blood Pressure Pulse Oximetry 99 04/15/18 23:57 04/16/18 00:00 04/16/18 00:15 Temperature Pulse Rate 79 78 77 Respiratory Rate 18 8 L 10 L Blood Pressure 99/58 L 102/57 L Pulse Oximetry 98 98 04/16/18 01:00 04/16/18 02:00 04/16/18 03:00 Temperature Pulse Rate 77 79 80 Respiratory Rate Blood Pressure Pulse Oximetry 04/16/18 03:54 04/16/18 04:00 04/16/18 05:00 Temperature 98.9 F Pulse Rate 75 76 79 Respiratory Rate 20 18 Blood Pressure 106/56 L Pulse Oximetry 94 L 94 L 04/16/18 06:00 04/16/18 07:00 04/16/18 07:49 Temperature Pulse Rate 78 80 Respiratory Rate 17 22 Blood Pressure Pulse Oximetry 94 L 04/16/18 07:59 04/16/18 08:00 04/16/18 08:15 Temperature 98.7 F Pulse Rate 80 82 Respiratory Rate 16 18 13 Blood Pressure 126/62 131/62 Pulse Oximetry 93 L 94 L 94 L 04/16/18 08:30 04/16/18 08:45 04/16/18 09:00 Temperature Pulse Rate 80 90 80 Respiratory Rate 17 23 16 Blood Pressure 132/62 135/62 129/60 Pulse Oximetry 94 L 93 L 93 L 04/16/18 09:18 04/16/18 09:20 04/16/18 10:00 Temperature Pulse Rate 79 79 80 Respiratory Rate 7 L 2 L Blood Pressure 96/53 L 90/50 L Pulse Oximetry 93 L 92 L 04/16/18 11:00 04/16/18 11:30 Temperature Pulse Rate 82 Respiratory Rate 12 11 L Blood Pressure Pulse Oximetry 97 Intake & Output 04/15/18 04/16/18 04/16/18 18:59 06:59 18:59 Intake Total 250 / 250 470 / 470 150 / 150 Output Total 2800 / 2800 0 / 0 Balance -2550 / -2550 470 / 470 150 / 150 Weight 124.1 kg Intake: IV 250 / 250 470 / 470 150 / 150 Diprivan 1000 mg/100 ml Inj 1, 300 / 300 100 / 100 000 mg In 100 ml @ 5 MCG/KG/MIN 3.708 mls/hr IV.CONT TITRATE PRN Rx#:[id number] Flexbumin 25% Inj 100 ML @ 60 200 / 200 mls/hr IV.SIG WITH DIALYSIS PRN Rx#:[id number] Calcium Gluconate Inj 2 GM In 120 / 120 NS Inj 100 ML @ 120 mls/hr IV. SIG ONCE ONE Rx#:[id number] Zosyn 2.25 GM Premix 2.25 gm In 50 / 50 50 / 50 50 / 50 50 ml @ 100 mls/hr IV.SIG Q8H CHEL Rx#:[id number] Oral 0 / 0 Output: Urine 0 / 0 0 / 0 Hemodialysis Amount 2800 / 2800 Other: # Bowel Movements 0 Narrative: GENERAL: Well-developed, obese. sedated and intubated NECK: No carotid bruits. No JVD. CARDIOVASCULAR: Regular rate and rhythm. 2/6 XAVIER. 1+bl LE edema RESPIRATORY: Diminished at bases with scattered rhonchi MUSCULOSKELETAL: No clubbing or cyanosis. 1+ generalized edema. NEUROLOGICAL: sedated Results 04/16/18 04:56 04/16/18 04:56 Cardiac Enzymes 04/16/18 Range/Units 04:56 AST 11 L (15-37) U/L CBC 04/15/18 04/16/18 Range/Units 03:58 04:56 WBC 11.4 H 7.4 (4.0-11.0) th/mm3 RBC 3.46 L 3.05 L (4.50-5.90) mil/mm3 Hgb 9.5 L 8.5 L (13.0-17.0) gm/dL Hct 30.3 L 26.7 L (39.0-51.0) % Plt Count 213 168 (150-450) th/mm3 Neut # (Auto) 9.3 H 7.0 (1.8-7.7) th/mm3 Lymph # (Auto) 0.6 L 0.2 L (1.0-4.8) th/mm3 [place] # (Auto) 1.2 H 0.2 (0.0-0.9) th/mm3 Eos # (Auto) 0.3 0.0 (0.0-0.4) th/mm3 Baso # (Auto) 0.0 0.0 (0.0-0.2) th/mm3 Comprehensive Metabolic Panel 04/15/18 04/16/18 Range/Units 03:58 04:56 Sodium 133 L 136 (136-145) meq/L Potassium 4.4 4.6 (3.5-5.1) meq/L Chloride 95 L 97 L (98-107) meq/L Carbon Dioxide 21.9 21.1 (21.0-32.0) meq/L BUN 71 H 62 H (7-18) mg/dL Creatinine 9.46 H 8.22 H (0.60-1.30) mg/dL Calcium 6.0 L* 6.4 L* (8.5-10.1) mg/dL AST 11 L (15-37) U/L ALT 17 (12-78) U/L Alkaline Phosphatase 112 (45-117) U/L Total Protein 6.9 (6.4-8.2) g/dL Albumin 3.4 3.0 L (3.4-5.0) g/dL Intake and Output 04/15/18 04/16/18 04/16/18 22:59 06:59 14:59 Intake Total 270 / 270 250 / 250 150 / 150 Output Total 0 / 0 0 / 0 Balance 270 / 270 250 / 250 150 / 150 Intake: IV 270 / 270 250 / 250 150 / 150 Diprivan 1000 mg/100 ml Inj 1, 100 / 100 200 / 200 100 / 100 000 mg In 100 ml @ 5 MCG/KG/MIN 3.708 mls/hr IV.CONT TITRATE PRN Rx#:[id number] Calcium Gluconate Inj 2 GM In 120 / 120 NS Inj 100 ML @ 120 mls/hr IV. SIG ONCE ONE Rx#:[id number] Zosyn 2.25 GM Premix 2.25 gm In 50 / 50 50 / 50 50 / 50 50 ml @ 100 mls/hr IV.SIG Q8H CHEL Rx#:[id number] Oral 0 / 0 Output: Urine 0 / 0 0 / 0 Other: # Bowel Movements 0 Weight 124.1 kg - Imaging and Cardiology Imaging: Impressions Chest X-Ray 04/14/18 00:00 CONCLUSION: Increasing density left lung base , atelectasis versus infiltrate. Chest X-Ray 04/15/18 12:32 CONCLUSION: Cardiomegaly with Central vascular prominence and left basilar airspace disease ; unchanged. Chest X-Ray 04/15/18 16:51 CONCLUSION: 1. Interval placement of endotracheal tube with the tip above the level of thoracic inlet. This is located approximately 10 cm above the taylor. 2. Stable appearance with moderate cardiomegaly and no congestive heart failure. Chest X-Ray 04/16/18 06:00 CONCLUSION: Cardiomegaly. Diffuse increased interstitial markings likely related to edema. Hazy density at the bases which may be related to effusions. Chest X-Ray 04/16/18 07:02 CONCLUSION: 1. Endotracheal tube appears to have been advanced and now projects 4 cm below the level of clavicles. 2. Orogastric tube with the proximal port at the level of the diaphragm. Recommend advancement. 3. Cardiomegaly with radiographic findings consistent with volume overload versus congestive heart failure. Assessment and Plan - Plan 57-year-old male with CAD s/p 6v CABG 2003 and PCI to LCx 2015 w/ /6 grafts patent on LHC, ESRD on home HD 4x per week, HTN, HLD, DM. The patient was at [facility] getting colonoscopy done 04/11/18 and had reported asystolic cardiac arrest. Asystolic arrest during anesthesia for colonoscopy: No strips available, however no noted VT/VF. Minimal troponin elevation in the setting of ESRD. Previously reported intermittent chest pain symptoms. When the patient was tachycardic he did have ST depression. Discussed the case with the hospitalist , planning to potentially proceed with cardiac catheterization, but the patient is unable to lie flat at this time due to progressive symptoms. Acute respiratory failure, requiring endotracheal intubation and mechanical ventilation. suspected aspiration pneumonia. Continue IV antibiotics. Plan for cardiac catheterization after patient is optimized from a respiratory status. Atrial fibrillation, brief episodes in setting of respiratory distress, currently NSR. continue to monitor on telemetry. Avoid AVN agents currently with soft BP. No Anticoagulation therapy with current drop in H/H 9.5-->8.5g today. Obtain records from [place] if colonoscopy was completed what the results were.
[2018-04-16] MEDS ORDERED: Calcium Gluconate Inj 2 GM in Sodium Chlor 0.9% Inj 100 ML IV.SIG ONE (12:00)
--- NOTE | 2018-04-16 13:17 | P.PN ---
Subjective Interval history: On mechanical ventilation Physical Exam Vital signs: Vital Signs 04/15/18 15:00 04/15/18 15:31 04/15/18 16:00 Temperature 98 F Pulse Rate 120 H 90 140 H Respiratory Rate 12 20 Blood Pressure 123/62 Pulse Oximetry 98 96 04/15/18 16:52 04/15/18 17:00 04/15/18 18:00 Temperature Pulse Rate 78 90 Respiratory Rate 16 Blood Pressure Pulse Oximetry 100 04/15/18 19:00 04/15/18 20:00 04/15/18 20:17 Temperature 98.9 F Pulse Rate 76 83 87 Respiratory Rate 20 24 Blood Pressure 112/86 Pulse Oximetry 97 96 04/15/18 21:00 04/15/18 22:00 04/15/18 23:00 Temperature Pulse Rate 76 79 78 Respiratory Rate Blood Pressure Pulse Oximetry 04/15/18 23:54 04/15/18 23:57 04/16/18 00:00 Temperature Pulse Rate 79 78 Respiratory Rate 18 18 8 L Blood Pressure 99/58 L Pulse Oximetry 99 98 04/16/18 00:15 04/16/18 01:00 04/16/18 02:00 Temperature Pulse Rate 77 77 79 Respiratory Rate 10 L Blood Pressure 102/57 L Pulse Oximetry 98 04/16/18 03:00 04/16/18 03:54 04/16/18 04:00 Temperature 98.9 F Pulse Rate 80 75 76 Respiratory Rate 20 18 Blood Pressure 106/56 L Pulse Oximetry 94 L 94 L 04/16/18 05:00 04/16/18 06:00 04/16/18 07:00 Temperature Pulse Rate 79 78 80 Respiratory Rate 17 Blood Pressure Pulse Oximetry 04/16/18 07:49 04/16/18 07:59 04/16/18 08:00 Temperature 98.7 F Pulse Rate 80 Respiratory Rate 22 16 18 Blood Pressure 126/62 Pulse Oximetry 94 L 93 L 94 L 04/16/18 08:15 04/16/18 08:30 04/16/18 08:45 Temperature Pulse Rate 82 80 90 Respiratory Rate 13 17 23 Blood Pressure 131/62 132/62 135/62 Pulse Oximetry 94 L 94 L 93 L 04/16/18 09:00 04/16/18 09:18 04/16/18 09:20 Temperature Pulse Rate 80 79 79 Respiratory Rate 16 7 L 2 L Blood Pressure 129/60 96/53 L 90/50 L Pulse Oximetry 93 L 93 L 92 L 04/16/18 10:00 04/16/18 11:00 04/16/18 11:30 Temperature Pulse Rate 80 83 Respiratory Rate 12 11 L Blood Pressure Pulse Oximetry 97 04/16/18 12:00 04/16/18 12:20 Temperature 99.9 F H Pulse Rate 83 83 Respiratory Rate 16 17 Blood Pressure 108/53 L 105/54 L Pulse Oximetry Intake & Output 04/15/18 04/16/18 04/16/18 18:59 06:59 18:59 Intake Total 250 / 250 470 / 470 150 / 150 Output Total 2800 / 2800 0 / 0 Balance -2550 / -2550 470 / 470 150 / 150 Weight 124.1 kg Intake: IV 250 / 250 470 / 470 150 / 150 Diprivan 1000 mg/100 ml Inj 1, 300 / 300 100 / 100 000 mg In 100 ml @ 5 MCG/KG/MIN 3.708 mls/hr IV.CONT TITRATE PRN Rx#:[id number] Flexbumin 25% Inj 100 ML @ 60 200 / 200 mls/hr IV.SIG WITH DIALYSIS PRN Rx#:[id number] Calcium Gluconate Inj 2 GM In 120 / 120 NS Inj 100 ML @ 120 mls/hr IV. SIG ONCE ONE Rx#:[id number] Zosyn 2.25 GM Premix 2.25 gm In 50 / 50 50 / 50 50 / 50 50 ml @ 100 mls/hr IV.SIG Q8H [place] Rx#:[id number] Oral 0 / 0 Output: Urine 0 / 0 0 / 0 Hemodialysis Amount 2800 / 2800 Other: # Bowel Movements 0 - Constitutional morbidly obese, chronically ill appearing, agitated - Routine HEENT Exam Head: Present: normocephalic Eye: Present: PERRL ENT: Present: mucous membranes moist - Routine Respiratory Exam Present: patient mechanically ventilated - Routine Cardiovascular Exam Present: RRR, S1, S2 - Routine Abdominal Exam Present: soft Results - Labs CBC & Chem 7: 04/16/18 04:56 04/16/18 04:56 Laboratory Results - last 24 hr 04/15/18 04/15/18 04/15/18 13:02 14:23 16:05 WBC RBC Hgb Hct MCV MCH MCHC RDW Plt Count MPV Neut % (Auto) Lymph % (Auto) [place] % (Auto) Eos % (Auto) Baso % (Auto) Neut # (Auto) Lymph # (Auto) [place] # (Auto) Eos # (Auto) Baso # (Auto) WBC Differential Differential Comment Puncture Site Right radial Right radial Right radial Patient Temperature 98.6 98.6 98.6 O2 Saturation 94 93 94 ABG pH 7.28 L* 7.25 L* 7.25 L* ABG pCO2 50 H 54 H* 53 H* ABG pO2 101 98 112 ABG HCO3 23 23 22 ABG O2 Content 12.4 11.8 L 11.9 L ABG Base Excess -3.3 L -3.1 L -3.8 L ABG Methemoglobin 1.5 1.7 1.7 Zeferino Test Present Y Present Hemoglobin 9.2 L 8.9 L 8.8 L Carboxyhemoglobin 1.8 1.8 1.8 O2 Delivery Device Bipap Bipap Bipap Vent Setting Ipap15/epap5 15 ipap/ 5 epap Inspired O2 40 40 35 Critical Value Yes Yes Yes Sodium Potassium Chloride Carbon Dioxide Anion Gap BUN Creatinine Estimated GFR POC Glucose Random Glucose Calcium Calcium Adj for Albumin Total Bilirubin AST ALT Alkaline Phosphatase Total Protein Albumin 04/15/18 04/15/18 04/15/18 18:04 20:30 23:47 WBC RBC Hgb Hct MCV MCH MCHC RDW Plt Count MPV Neut % (Auto) Lymph % (Auto) [place] % (Auto) Eos % (Auto) Baso % (Auto) Neut # (Auto) Lymph # (Auto) [place] # (Auto) Eos # (Auto) Baso # (Auto) WBC Differential Differential Comment Puncture Site Right radial Right radial Patient Temperature 98.6 98.6 O2 Saturation 95 96 ABG pH 7.21 L* 7.27 L* ABG pCO2 58 H* 50 H ABG pO2 139 H 168 H ABG HCO3 22 22 ABG O2 Content 11.9 L 11.5 L ABG Base Excess -4.4 L -3.8 L ABG Methemoglobin 1.8 1.8 Zeferino Test Present Present Hemoglobin 8.7 L 8.3 L Carboxyhemoglobin 1.6 1.6 O2 Delivery Device Ventilator Ventilator Vent Setting Prvc/ac Prvc/ac Inspired O2 100 100 Critical Value Yes Yes Sodium Potassium Chloride Carbon Dioxide Anion Gap BUN Creatinine Estimated GFR POC Glucose 178 H Random Glucose Calcium Calcium Adj for Albumin Total Bilirubin AST ALT Alkaline Phosphatase Total Protein Albumin 04/16/18 04/16/18 04/16/18 04:56 04:56 10:55 WBC 7.4 RBC 3.05 L Hgb 8.5 L Hct 26.7 L MCV 87.7 MCH 27.9 MCHC 31.9 L RDW 17.7 H Plt Count 168 MPV 8.7 Neut % (Auto) 94.1 H Lymph % (Auto) 3.3 L [place] % (Auto) 2.5 Eos % (Auto) 0.0 Baso % (Auto) 0.1 Neut # (Auto) 7.0 Lymph # (Auto) 0.2 L [place] # (Auto) 0.2 Eos # (Auto) 0.0 Baso # (Auto) 0.0 WBC Differential . Differential Comment Auto diff final Puncture Site Right radial Patient Temperature 98.6 O2 Saturation 92 ABG pH 7.33 L ABG pCO2 36 L ABG pO2 81 ABG HCO3 19 L ABG O2 Content 11.0 L ABG Base Excess -6.1 L ABG Methemoglobin 1.8 Zeferino Test Present Hemoglobin 8.4 L Carboxyhemoglobin 1.4 O2 Delivery Device Ventilator Vent Setting Cpap+5/ps+15 Inspired O2 50 Critical Value No Sodium 136 Potassium 4.6 Chloride 97 L Carbon Dioxide 21.1 Anion Gap 18 H BUN 62 H Creatinine 8.22 H Estimated GFR 7 L POC Glucose Random Glucose 175 H Calcium 6.4 L* Calcium Adj for Albumin 7.2 L* Total Bilirubin 0.5 AST 11 L ALT 17 Alkaline Phosphatase 112 Total Protein 6.9 Albumin 3.0 L 04/16/18 12:12 WBC RBC Hgb Hct MCV MCH MCHC RDW Plt Count MPV Neut % (Auto) Lymph % (Auto) [place] % (Auto) Eos % (Auto) Baso % (Auto) Neut # (Auto) Lymph # (Auto) [place] # (Auto) Eos # (Auto) Baso # (Auto) WBC Differential Differential Comment Puncture Site Patient Temperature O2 Saturation ABG pH ABG pCO2 ABG pO2 ABG HCO3 ABG O2 Content ABG Base Excess ABG Methemoglobin Zeferino Test Hemoglobin Carboxyhemoglobin O2 Delivery Device Vent Setting Inspired O2 Critical Value Sodium Potassium Chloride Carbon Dioxide Anion Gap BUN Creatinine Estimated GFR POC Glucose 255 H Random Glucose Calcium Calcium Adj for Albumin Total Bilirubin AST ALT Alkaline Phosphatase Total Protein Albumin - Imaging Impressions Chest X-Ray 04/15/18 12:32 CONCLUSION: Cardiomegaly with Central vascular prominence and left basilar airspace disease ; unchanged. Chest X-Ray 04/15/18 16:51 CONCLUSION: 1. Interval placement of endotracheal tube with the tip above the level of thoracic inlet. This is located approximately 10 cm above the taylor. 2. Stable appearance with moderate cardiomegaly and no congestive heart failure. Chest X-Ray 04/16/18 06:00 CONCLUSION: Cardiomegaly. Diffuse increased interstitial markings likely related to edema. Hazy density at the bases which may be related to effusions. Chest X-Ray 04/16/18 07:02 CONCLUSION: 1. Endotracheal tube appears to have been advanced and now projects 4 cm below the level of clavicles. 2. Orogastric tube with the proximal port at the level of the diaphragm. Recommend advancement. 3. Cardiomegaly with radiographic findings consistent with volume overload versus congestive heart failure. Assessment and Plan - Assessment (1) Supraventricular arrhythmia Code(s): I49.9 - Cardiac arrhythmia, unspecified Status: Acute Plan: In sinus rhythm On mechanical ventilation due to hypercapnia Sedated Condition of care I agree with current management I will be available on a PRN basis (2) Cardiopulmonary arrest with successful resuscitation Code(s): I46.9 - Cardiac arrest, cause unspecified Status: Acute Plan: No pause, no VT since hospitalization
[2018-04-17] MEDS: Piperacil/Tazo 2.25 GM Premix 2.25 GM/50 ML PIGGYBACK IV.SIG SCH ×3 (01:34→17:11)
[2018-04-17] MEDS: Propofol 1000 mg/100 ml Inj 1,000 MG/100 ML BOTTLE IV.CONT PRN ×5 (03:24→18:24)
[2018-04-17] MEDS: MethylPREDNISolone Sod Succinate Inj 40 MG/ML Vial IV.PUSH SCH ×2 (04:46→17:12)
[2018-04-17 05:19] LABS: Baso % (Auto) 0.3 % (0.0-2.0); Hematocrit 29.7 % (39.0-51.0); Hemoglobin 9.4 gm/dL (13.0-17.0); Lymph # (Auto) 0.3 th/mm3 (1.0-4.8); Lymph % (Auto) 3.1 % (9.0-44.0); Mean Corpuscular HGB Conc 31.6 % (32.0-36.0); Mean Corpuscular Hemoglobin 28.3 pg (27.0-34.0); Mean Corpuscular Volume 89.5 fL (80.0-100.0); Mean Platelet Volume 8.8 fL (7.0-11.0); Mono # (Auto) 0.3 th/mm3 (0.0-0.9); Mono % (Auto) 3.6 % (0.0-8.0); Neut # (Auto) 7.9 th/mm3 (1.8-7.7); Platelet Count 156 th/mm3 (150-450); Red Blood Count 3.32 mil/mm3 (4.50-5.90); Red Cell Distribution Width 17.6 % (11.6-17.2); White Blood Count 8.5 th/mm3 (4.0-11.0)
[2018-04-17] MEDS: Insulin NovoLOG Aspart Correctional Sugar Inj SQ SCH (05:48)
[2018-04-17 05:55] LABS: Albumin 3.1 g/dL (3.4-5.0); Calcium 6.4 mg/dL (8.5-10.1); Carbon Dioxide 20.6 meq/L (21.0-32.0); Potassium 4.6 meq/L (3.5-5.1); Total Protein 7.1 g/dL (6.4-8.2)
[2018-04-17] MEDS: Isosorbide Mononitrate 60 MG ER 24HR Tablet (Imdur) PO SCH (06:59)
[2018-04-17] MEDS: Pantoprazole Inj 40 MG Vial IV.PUSH SCH (08:01)
[2018-04-17] MEDS: Senna/Docusate Sodium 8.6/50 MG Tablet PO SCH ×2 (08:01→20:15)
[2018-04-17] MEDS: Calcium Acetate 667 MG Capsule PO SCH ×3 (08:01→17:11)
[2018-04-17] MEDS ORDERED: Dextrose 50% in Water 50 ML Vial IV.PUSH PRN (08:52)
--- NOTE | 2018-04-17 08:55 | P.PNCC ---
Subjective Subjective Remarks/Hospital Course: The patient is a 57-year-old male with multiple medical comorbidities which include end-stage renal disease, on hemodialysis, being followed by Dr. Vogel, status post renal transplant in 2004, hypertension, diabetes mellitus, coronary artery disease with previous coronary artery bypass grafting in 2003. The patient was getting his colonoscopy and while being sedated, he had an asystolic episode. He received 2 rounds of epinephrine and chest compressions performed. He was initially intubated, and on arrival to the ER, he was extubated. The patient was awake, alert, and oriented. He does not recall anything that happened. He reports mild chest discomfort on the right side of his chest wall due to chest compressions. No other complaints were reported. He denies any shortness of breath, orthopnea, PND, or edema of lower extremities. Also, he denies any cough, wheezing or constitutional symptoms 2 Reconsult for resp distress. Patient reports SOB on 4L oxygen, tachycardic and tachypneic. s/p HD earlier today with removal 2.8L. CXR from yesterday increasing density left lung base. Afebrile. 2/ Patient was intubated yesterday sedated with Diprivan. On PRVC with PEEP:5 and FIO2 50%. Afebrile. 04/17 Patient remains intubated and sedated. Afebrile. Objective Vital Signs / I&O: Vital Signs 04/16/18 09:00 04/16/18 09:18 04/16/18 09:20 Temperature Pulse Rate 80 79 79 Respiratory Rate 16 7 L 2 L Blood Pressure 129/60 96/53 L 90/50 L Pulse Oximetry 93 L 93 L 92 L 04/16/18 10:00 04/16/18 11:00 04/16/18 11:30 Temperature Pulse Rate 80 83 Respiratory Rate 12 11 L Blood Pressure Pulse Oximetry 97 04/16/18 12:00 04/16/18 12:20 04/16/18 13:00 Temperature 99.9 F H Pulse Rate 83 83 82 Respiratory Rate 16 17 Blood Pressure 108/53 L 105/54 L Pulse Oximetry 04/16/18 14:00 04/16/18 15:00 04/16/18 15:07 Temperature Pulse Rate 82 83 Respiratory Rate 18 17 Blood Pressure Pulse Oximetry 94 L 04/16/18 16:00 04/16/18 16:20 04/16/18 17:00 Temperature 98.7 F Pulse Rate 85 86 87 Respiratory Rate 23 22 Blood Pressure 103/54 L 120/56 L Pulse Oximetry 93 L 94 L 04/16/18 18:00 04/16/18 19:00 04/16/18 20:00 Temperature 98.9 F Pulse Rate 85 89 84 Respiratory Rate 18 Blood Pressure 94/58 L Pulse Oximetry 95 04/16/18 20:03 04/16/18 21:00 04/16/18 22:00 Temperature Pulse Rate 85 82 84 Respiratory Rate 23 Blood Pressure Pulse Oximetry 95 04/16/18 23:00 04/17/18 00:00 04/17/18 00:04 Temperature 98.6 F Pulse Rate 78 76 75 Respiratory Rate 13 20 Blood Pressure 118/56 L Pulse Oximetry 96 96 04/17/18 01:00 04/17/18 02:00 04/17/18 03:00 Temperature Pulse Rate 75 75 75 Respiratory Rate Blood Pressure Pulse Oximetry 04/17/18 04:00 04/17/18 04:01 04/17/18 04:08 Temperature Pulse Rate 78 79 77 Respiratory Rate 26 H 25 H 21 Blood Pressure 128/61 Pulse Oximetry 97 97 96 04/17/18 05:00 04/17/18 06:00 04/17/18 07:00 Temperature Pulse Rate 75 72 71 Respiratory Rate 16 Blood Pressure Pulse Oximetry 04/17/18 08:00 Temperature Pulse Rate Respiratory Rate 10 L Blood Pressure Pulse Oximetry 98 Intake & Output 04/16/18 04/17/18 04/17/18 18:59 06:59 18:59 Intake Total 595 / 595 597 / 597 100 / 100 Output Total 0 / 0 Balance 595 / 595 597 / 597 100 / 100 Weight 125 kg Intake: IV 520 / 520 350 / 350 100 / 100 Diprivan 1000 mg/100 ml Inj 1, 300 / 300 300 / 300 100 / 100 000 mg In 100 ml @ 5 MCG/KG/MIN 3.708 mls/hr IV.CONT TITRATE PRN Rx#:[id number] Calcium Gluconate Inj 2 GM In 120 / 120 NS Inj 100 ML @ 120 mls/hr IV. SIG ONCE ONE Rx#:[id number] Zosyn 2.25 GM Premix 2.25 gm In 100 / 100 50 / 50 50 ml @ 100 mls/hr IV.SIG Q8H DOMENICO Rx#:[id number] Oral 0 / 0 Tube Feeding 75 / 75 247 / 247 Output: Urine 0 / 0 Other: # Bowel Movements 0 Result Diagrams: 04/17/18 04:58 04/17/18 04:58 Other Results: Laboratory Results - last 12 hr 04/16/18 04/17/18 04/17/18 23:51 04:58 04:58 WBC 8.5 RBC 3.32 L Hgb 9.4 L Hct 29.7 L MCV 89.5 MCH 28.3 MCHC 31.6 L RDW 17.6 H Plt Count 156 MPV 8.8 Neut % (Auto) 93.0 H Lymph % (Auto) 3.1 L [place] % (Auto) 3.6 Eos % (Auto) 0.0 Baso % (Auto) 0.3 Neut # (Auto) 7.9 H Lymph # (Auto) 0.3 L [place] # (Auto) 0.3 Eos # (Auto) 0.0 Baso # (Auto) 0.0 WBC Differential . Differential Comment Auto diff final Sodium 132 L Potassium 4.6 Chloride 93 L Carbon Dioxide 20.6 L Anion Gap 18 H BUN 87 H Creatinine 9.50 H Estimated GFR 6 L POC Glucose 334 H Random Glucose 313 H D Calcium 6.4 L* Calcium Adj for Albumin 7.1 L* Total Bilirubin 0.5 AST 12 L ALT 15 Alkaline Phosphatase 110 Total Protein 7.1 Albumin 3.1 L 04/17/18 05:04 WBC RBC Hgb Hct MCV MCH MCHC RDW Plt Count MPV Neut % (Auto) Lymph % (Auto) [place] % (Auto) Eos % (Auto) Baso % (Auto) Neut # (Auto) Lymph # (Auto) [place] # (Auto) Eos # (Auto) Baso # (Auto) WBC Differential Differential Comment Sodium Potassium Chloride Carbon Dioxide Anion Gap BUN Creatinine Estimated GFR POC Glucose 347 H Random Glucose Calcium Calcium Adj for Albumin Total Bilirubin AST ALT Alkaline Phosphatase Total Protein Albumin Imaging: Chest CTA 04/12/18 00:00 CONCLUSION: 1. No CT evidence for pulmonary artery embolism as questioned. 2. Cardiomegaly with trace bilateral pleural effusions and mild airspace consolidation at the lung bases which may reflect compressive atelectasis. Differential considerations include aspiration in the appropriate clinical setting. 3. Trace perihepatic ascites fluid. Chest X-Ray 04/16/18 07:02 CONCLUSION: 1. Endotracheal tube appears to have been advanced and now projects 4 cm below the level of clavicles. 2. Orogastric tube with the proximal port at the level of the diaphragm. Recommend advancement. 3. Cardiomegaly with radiographic findings consistent with volume overload versus congestive heart failure. Objective Remarks: GENERAL: Patient is 67 yo intubated SKIN: Warm and dry. HEAD: Normocephalic. EYES: No scleral icterus. No injection or drainage. NECK: Supple, trachea midline. No JVD or lymphadenopathy. CARDIOVASCULAR: Regular rate and rhythm without murmurs, gallops, or rubs. RESPIRATORY: Breath sounds equal bilaterally. Scattered wheezing and rhonchi GASTROINTESTINAL: Abdomen soft, non-tender, nondistended. MUSCULOSKELETAL: No cyanosis,+ edema. Neuro: Intubated, sedated. Assessment and Plan - Assessment and Plan Plan: 1. VDRF intubated 04/15 2. s/p post cardiopulmonary arrest, asystolic event during colonoscopy 3. ESRD, on hemodialysis. 4. Leukocytosis. 5. Anemia. 6. Hypocalcemia. 7. Hypertension. 8. Diabetes mellitus. 9. COPD 10. Previous renal transplant in 2004. 11. CAD/CABG in 2003. 12. GERD 13. SVT Plan Neuro: On Diprivan infusion for sedation. Daily sedation vacation. Monitor neuro status closely Pulm: Continue with vent support and maintain sats >92%. On PRVC RR 18, TV 550, IT:0.9, PEEP: 5, FIO2: 40% Bronchodilators, ICU vent bundle Decrease Solumedrol 40mg IV Q12 SBT daily as elda CV: Monitor HR and BP and maintain MAP >65 mmHg. Cards is following- Dr. Arredondo. For LHC when resp status improves Echo showed EF 50-55% On ASA, Lipitor, Imdur : Monitor renal function, I's and O's and avoid nephrotoxins. Renal is following. s/p HD 04/15 with removal 2.8L HD per renal ID: Continue abx on Zosyn/Vanco monitor for signs of infections ( fever, WBC) Check sputum cx. GI: On Protonix 40 mg daily. On tube feeds- Nepro with goal rate 40ml/hr Heme: Monitor CBC. Endo: Increase SSI to medium scale, add Levemir 5u BID and taper steroids GI prophylaxis- on Protonix 40 mg daily DVT prophylaxis- on SCD and heparin subcu Level 3
[2018-04-17] MEDS: Insulin Detemir Inj 1,000 UNIT/10 ML Vial SQ SCH ×2 (09:51→20:15)
--- NOTE | 2018-04-17 10:49 | P.PNCA ---
Subjective Interval history: No events overnight. Patient remains intubated and with mechanical ventilation. Telemetry reviewed with no significant events. Medications and Allergies Active Medications: Active Medications Hydrocodone Bitart/Acetaminophen ([place] 10/325) 1 tab PO Q6H PRN PRN Reason: PAIN SCALE 6 TO 10 Last Admin: 04/15/18 01:42 Dose: 1 tab Albuterol (Duoneb Neb (Prn)) 1 ampul NEB Q2HR NEB PRN PRN Reason: WHEEZING Last Admin: 04/15/18 06:05 Dose: 1 ampul Albuterol (Duoneb Neb (Chel)) 1 ampul NEB Q4HR NEB [facility] Last Admin: 04/17/18 08:13 Dose: 1 ampul Aspirin (Ecotrin) 81 mg PO DAILY [facility] Last Admin: 04/17/18 08:01 Dose: 81 mg Atorvastatin Calcium (Lipitor) 40 mg PO HS [facility] Last Admin: 04/16/18 20:53 Dose: 40 mg Bisacodyl (Dulcolax Supp) 10 mg RECTAL DAILY PRN PRN Reason: SEVERE CONSITIPATION Calcium Acetate (Phoslo) 1,334 mg PO TID [facility] Last Admin: 04/17/18 08:01 Dose: 1,334 mg Cinacalcet (Sensipar) 90 mg PO BID [facility] Last Admin: 04/17/18 08:01 Dose: 90 mg Clonidine HCl (Catapres) 0.1 mg PO UNSCH PRN PRN Reason: SEE LABEL COMMENTS Dextrose (D50w Vial) 50 ml IV.PUSH UNSCH PRN PRN Reason: PER HYPOGLYCEMIA PROTOCOL Diphenhydramine HCl (Benadryl) 25 mg PO UNSCH PRN PRN Reason: SEE LABEL COMMENTS Epoetin Gian (Epogen Inj) 4,000 unit IV.PUSH UNSCH PRN PRN Reason: SEE LABEL COMMENTS Last Admin: 04/15/18 09:06 Dose: 4,000 unit Gelatin (Gelfoam 12 Mm/7 Mm Topical) 1 foam TOPICAL PRN PRN PRN Reason: help stop bleeding from site Gentamicin Sulfate (Gentamicin Inj) 20 mg OTHER WITH DIALYSIS PRN PRN Reason: Dwell Gentamycin Lock Glucagon (Glucagon Inj) 1 mg OTHER PRN PRN PRN Reason: for Hypoglycemia Protocol Heparin Sodium (Porcine) (Heparin Inj) 5,000 units SQ Q12H [facility] Last Admin: 04/16/18 23:59 Dose: 5,000 units Heparin Sodium (Porcine) (Heparin Inj) 8,000 units OTHER WITH DIALYSIS PRN PRN Reason: for machine prime Heparin Sodium (Porcine) (Heparin Inj) 1,000 units OTHER WITH DIALYSIS PRN PRN Reason: Dwell Heparin to Fill Catheter Albumin Human (Flexbumin 25% Inj) 100 mls @ 60 mls/hr IV.SIG WITH DIALYSIS PRN PRN Reason: hypotension / volume replace Last Infusion: 04/15/18 09:14 Dose: Infused Sodium Chloride (Ns Inj) 1,000 mls @ 0 mls/hr OTHER .Q0M PRN PRN Reason: for prime and rinse back Sodium Chloride (Ns Inj) 1,000 mls @ 200 mls/hr OTHER .Q5H PRN PRN Reason: for dialyzer flush PRN Sodium Chloride (Ns Inj) 1,000 mls @ 0 mls/hr IV.CONT .Q0M PRN PRN Reason: hypotension / volume replace Piperacillin/Tazobactam/Dextrose (Zosyn 2.25 Gm Premix) 2.25 gm in 50 mls @ 100 mls/hr IV.SIG Q8H CHEL Last Admin: 04/17/18 09:51 Dose: 100 mls/hr Vancomycin HCl 1,000 mg/ (Sodium Chloride) 250 mls @ 250 mls/hr IV.SIG WITH DIALYSIS CHEL Propofol (Diprivan 1000 Mg/100 Ml Inj) 1,000 mg in 100 mls @ 3.708 mls/hr IV.CONT TITRATE PRN; Protocol PRN Reason: Per Protocol Last Admin: 04/17/18 07:38 Dose: 35 mcg/kg/min, 25.96 mls/hr Insulin Detemir (Levemir Inj) 5 unit SQ BID [facility] Last Admin: 04/17/18 09:51 Dose: 5 unit Insulin Human Regular (Novolin R Correctional Sugar Inj) 0 units SQ Q6HR [facility]; Protocol Isosorbide Mononitrate (Imdur) 120 mg PO DAILY@0700 [facility] Last Admin: 04/17/18 06:59 Dose: Not Given Lactulose (Lactulose Liq) 30 ml PO DAILY PRN PRN Reason: SEVERE CONSITIPATION Last Admin: 04/15/18 01:42 Dose: 30 ml Mannitol (Mannitol Inj) 12.5 gm IV.PUSH UNSCH PRN PRN Reason: hypotension / volume replace Methylprednisolone Sodium Succinate (Solumedrol Inj) 40 mg IV.PUSH Q12H [facility] Nitroglycerin (Nitrostat Sl) 0.4 mg SL Q5M PRN PRN Reason: CHEST PAIN Ondansetron HCl (Zofran Inj) 4 mg IV.PUSH Q6H PRN PRN Reason: NAUSEA OR VOMITING Pantoprazole Sodium (Protonix Inj) 40 mg IV.PUSH DAILY [facility] Last Admin: 04/17/18 08:01 Dose: 40 mg Senna/Docusate Sodium (Maribel-Colace) 1 tab PO BID [facility] Last Admin: 04/17/18 08:01 Dose: 1 tab Sennosides (Senokot) 17.2 mg PO Q12H PRN PRN Reason: Moderate Constipation Sodium Chloride (Ns Flush) 2 ml IV.FLUSH UNSCH PRN PRN Reason: FLUSH AFTER USING IV ACCESS Sodium Chloride (Ns Flush) 2 ml IV.FLUSH BID [facility] Last Admin: 04/17/18 08:01 Dose: 2 ml Sodium Chloride (Ns Flush) 5 ml IV.FLUSH PRN PRN PRN Reason: flush each lumen during HD Allergies Allergy/AdvReac Type Severity Reaction Status Date / Time No Known Allergies Allergy Verified 04/11/18 10:33 Home Medications Medication Instructions Recorded Confirmed Type furosemide 80 mg PO DAILY 11/10/17 04/11/18 History insulin glargine [Lantus U-100 25 unit SUB-Q HS 11/10/17 04/11/18 History Insulin] prednisone 5 mg PO DAILY 11/10/17 04/11/18 History sevelamer carbonate [Renvela] 1,600 mg PO TIDAC 11/10/17 04/11/18 History albuterol sulfate [Ventolin HFA] 2 puff INHALATION Q4-6H PRN 04/11/18 04/11/18 History Physical Exam Vital signs: Vital Signs 04/16/18 11:00 04/16/18 11:30 04/16/18 12:00 Temperature 99.9 F H Pulse Rate 83 83 Respiratory Rate 12 11 L 16 Blood Pressure 108/53 L Pulse Oximetry 97 04/16/18 12:20 04/16/18 13:00 04/16/18 14:00 Temperature Pulse Rate 83 82 82 Respiratory Rate 17 Blood Pressure 105/54 L Pulse Oximetry 04/16/18 15:00 04/16/18 15:07 04/16/18 16:00 Temperature 98.7 F Pulse Rate 83 85 Respiratory Rate 18 17 23 Blood Pressure 103/54 L Pulse Oximetry 94 L 93 L 04/16/18 16:20 04/16/18 17:00 04/16/18 18:00 Temperature Pulse Rate 86 87 85 Respiratory Rate 22 Blood Pressure 120/56 L Pulse Oximetry 94 L 04/16/18 19:00 04/16/18 20:00 04/16/18 20:03 Temperature 98.9 F Pulse Rate 89 84 85 Respiratory Rate 18 23 Blood Pressure 94/58 L Pulse Oximetry 95 95 04/16/18 21:00 04/16/18 22:00 04/16/18 23:00 Temperature Pulse Rate 82 84 78 Respiratory Rate Blood Pressure Pulse Oximetry 04/17/18 00:00 04/17/18 00:04 04/17/18 01:00 Temperature 98.6 F Pulse Rate 76 75 75 Respiratory Rate 13 20 Blood Pressure 118/56 L Pulse Oximetry 96 96 04/17/18 02:00 04/17/18 03:00 04/17/18 04:00 Temperature Pulse Rate 75 75 78 Respiratory Rate 26 H Blood Pressure Pulse Oximetry 97 04/17/18 04:01 04/17/18 04:08 04/17/18 05:00 Temperature Pulse Rate 79 77 75 Respiratory Rate 25 H 21 Blood Pressure 128/61 Pulse Oximetry 97 96 04/17/18 06:00 04/17/18 07:00 04/17/18 08:00 Temperature 97.5 F L Pulse Rate 72 71 75 Respiratory Rate 16 20 Blood Pressure 127/60 Pulse Oximetry 100 04/17/18 08:21 04/17/18 08:41 04/17/18 09:00 Temperature Pulse Rate 71 70 72 Respiratory Rate 15 14 19 Blood Pressure 129/60 112/52 L Pulse Oximetry 94 L 92 L 92 L Intake & Output 04/16/18 04/17/18 04/17/18 18:59 06:59 18:59 Intake Total 595 / 595 597 / 597 100 / 100 Output Total 0 / 0 Balance 595 / 595 597 / 597 100 / 100 Weight 125 kg Intake: IV 520 / 520 350 / 350 100 / 100 Diprivan 1000 mg/100 ml Inj 1, 300 / 300 300 / 300 100 / 100 000 mg In 100 ml @ 5 MCG/KG/MIN 3.708 mls/hr IV.CONT TITRATE PRN Rx#:[id number] Calcium Gluconate Inj 2 GM In 120 / 120 NS Inj 100 ML @ 120 mls/hr IV. SIG ONCE ONE Rx#:[id number] Zosyn 2.25 GM Premix 2.25 gm In 100 / 100 50 / 50 50 ml @ 100 mls/hr IV.SIG Q8H CHEL Rx#:[id number] Oral 0 / 0 Tube Feeding 75 / 75 247 / 247 Output: Urine 0 / 0 Other: # Bowel Movements 0 Narrative: GENERAL: Well-developed, obese. sedated and intubated NECK: No carotid bruits. No JVD. CARDIOVASCULAR: Regular rate and rhythm. 2/6 XAVIER. 1+bl LE edema RESPIRATORY: Diminished at bases with scattered rhonchi MUSCULOSKELETAL: No clubbing or cyanosis. 1+ generalized edema. NEUROLOGICAL: sedated Results 04/17/18 04:58 04/17/18 04:58 Cardiac Enzymes 04/16/18 04/17/18 Range/Units 04:56 04:58 AST 11 L 12 L (15-37) U/L CBC 04/16/18 04/17/18 Range/Units 04:56 04:58 WBC 7.4 8.5 (4.0-11.0) th/mm3 RBC 3.05 L 3.32 L (4.50-5.90) mil/mm3 Hgb 8.5 L 9.4 L (13.0-17.0) gm/dL Hct 26.7 L 29.7 L (39.0-51.0) % Plt Count 168 156 (150-450) th/mm3 Neut # (Auto) 7.0 7.9 H (1.8-7.7) th/mm3 Lymph # (Auto) 0.2 L 0.3 L (1.0-4.8) th/mm3 [place] # (Auto) 0.2 0.3 (0.0-0.9) th/mm3 Eos # (Auto) 0.0 0.0 (0.0-0.4) th/mm3 Baso # (Auto) 0.0 0.0 (0.0-0.2) th/mm3 Comprehensive Metabolic Panel 04/16/18 04/17/18 Range/Units 04:56 04:58 Sodium 136 132 L (136-145) meq/L Potassium 4.6 4.6 (3.5-5.1) meq/L Chloride 97 L 93 L (98-107) meq/L Carbon Dioxide 21.1 20.6 L (21.0-32.0) meq/L BUN 62 H 87 H (7-18) mg/dL Creatinine 8.22 H 9.50 H (0.60-1.30) mg/dL Calcium 6.4 L* 6.4 L* (8.5-10.1) mg/dL AST 11 L 12 L (15-37) U/L ALT 17 15 (12-78) U/L Alkaline Phosphatase 112 110 (45-117) U/L Total Protein 6.9 7.1 (6.4-8.2) g/dL Albumin 3.0 L 3.1 L (3.4-5.0) g/dL Intake and Output 04/16/18 04/17/18 04/17/18 22:59 06:59 14:59 Intake Total 445 / 445 497 / 497 100 / 100 Output Total 0 / 0 Balance 445 / 445 497 / 497 100 / 100 Intake: IV 370 / 370 250 / 250 100 / 100 Diprivan 1000 mg/100 ml Inj 1, 200 / 200 200 / 200 100 / 100 000 mg In 100 ml @ 5 MCG/KG/MIN 3.708 mls/hr IV.CONT TITRATE PRN Rx#:[id number] Calcium Gluconate Inj 2 GM In 120 / 120 NS Inj 100 ML @ 120 mls/hr IV. SIG ONCE ONE Rx#:[id number] Zosyn 2.25 GM Premix 2.25 gm In 50 / 50 50 / 50 50 ml @ 100 mls/hr IV.SIG Q8H CHEL Rx#:[id number] Oral 0 / 0 Tube Feeding 75 / 75 247 / 247 Output: Urine 0 / 0 Other: # Bowel Movements 0 Weight 125 kg - Imaging and Cardiology Imaging: Impressions Chest X-Ray 04/15/18 12:32 CONCLUSION: Cardiomegaly with Central vascular prominence and left basilar airspace disease ; unchanged. Chest X-Ray 04/15/18 16:51 CONCLUSION: 1. Interval placement of endotracheal tube with the tip above the level of thoracic inlet. This is located approximately 10 cm above the atylor. 2. Stable appearance with moderate cardiomegaly and no congestive heart failure. Chest X-Ray 04/16/18 06:00 CONCLUSION: Cardiomegaly. Diffuse increased interstitial markings likely related to edema. Hazy density at the bases which may be related to effusions. Chest X-Ray 04/16/18 07:02 CONCLUSION: 1. Endotracheal tube appears to have been advanced and now projects 4 cm below the level of clavicles. 2. Orogastric tube with the proximal port at the level of the diaphragm. Recommend advancement. 3. Cardiomegaly with radiographic findings consistent with volume overload versus congestive heart failure. Assessment and Plan - Plan 57-year-old male with CAD s/p 6v CABG 2003 and PCI to LCx 05/18 grafts patent on [facility], ESRD on home HD 4x per week, HTN, HLD, DM. The patient was at [place] getting colonoscopy done 04/11/18 and had reported asystolic cardiac arrest. Asystolic arrest during anesthesia for colonoscopy: No strips available, however no noted VT/VF. Minimal troponin elevation in the setting of ESRD. Previously reported intermittent chest pain symptoms. When the patient was tachycardic he did have ST depression. Discussed the case with the hospitalist , planning to potentially proceed with cardiac catheterization, but the patient is unable to lie flat at this time due to progressive symptoms. Acute respiratory failure, requiring endotracheal intubation and mechanical ventilation. suspected aspiration pneumonia. Continue IV antibiotics. Plan for cardiac catheterization after patient is optimized from a respiratory status. Atrial fibrillation, brief episodes in setting of respiratory distress on 04/15/18 , currently NSR. continue to monitor on telemetry. Avoid AVN agents currently with soft BP. No Anticoagulation therapy due to anemia and possible need for invasive procedures. Obtain records from [place] if colonoscopy was completed what the results were.
--- NOTE | 2018-04-17 11:01 | P.PNNP ---
Subjective Interval history: Patient remain intubated and sedated. Physical Exam Vital signs: Vital Signs 04/16/18 11:00 04/16/18 11:30 04/16/18 12:00 Temperature 99.9 F H Pulse Rate 83 83 Respiratory Rate 12 11 L 16 Blood Pressure 108/53 L Pulse Oximetry 97 04/16/18 12:20 04/16/18 13:00 04/16/18 14:00 Temperature Pulse Rate 83 82 82 Respiratory Rate 17 Blood Pressure 105/54 L Pulse Oximetry 04/16/18 15:00 04/16/18 15:07 04/16/18 16:00 Temperature 98.7 F Pulse Rate 83 85 Respiratory Rate 18 17 23 Blood Pressure 103/54 L Pulse Oximetry 94 L 93 L 04/16/18 16:20 04/16/18 17:00 04/16/18 18:00 Temperature Pulse Rate 86 87 85 Respiratory Rate 22 Blood Pressure 120/56 L Pulse Oximetry 94 L 04/16/18 19:00 04/16/18 20:00 04/16/18 20:03 Temperature 98.9 F Pulse Rate 89 84 85 Respiratory Rate 18 23 Blood Pressure 94/58 L Pulse Oximetry 95 95 04/16/18 21:00 04/16/18 22:00 04/16/18 23:00 Temperature Pulse Rate 82 84 78 Respiratory Rate Blood Pressure Pulse Oximetry 04/17/18 00:00 04/17/18 00:04 04/17/18 01:00 Temperature 98.6 F Pulse Rate 76 75 75 Respiratory Rate 13 20 Blood Pressure 118/56 L Pulse Oximetry 96 96 04/17/18 02:00 04/17/18 03:00 04/17/18 04:00 Temperature Pulse Rate 75 75 78 Respiratory Rate 26 H Blood Pressure Pulse Oximetry 97 04/17/18 04:01 04/17/18 04:08 04/17/18 05:00 Temperature Pulse Rate 79 77 75 Respiratory Rate 25 H 21 Blood Pressure 128/61 Pulse Oximetry 97 96 04/17/18 06:00 04/17/18 07:00 04/17/18 08:00 Temperature 97.5 F L Pulse Rate 72 71 75 Respiratory Rate 16 20 Blood Pressure 127/60 Pulse Oximetry 100 04/17/18 08:21 04/17/18 08:41 04/17/18 09:00 Temperature Pulse Rate 71 70 72 Respiratory Rate 15 14 19 Blood Pressure 129/60 112/52 L Pulse Oximetry 94 L 92 L 92 L Intake & Output 04/16/18 04/17/18 04/17/18 18:59 06:59 18:59 Intake Total 595 / 595 597 / 597 100 / 100 Output Total 0 / 0 Balance 595 / 595 597 / 597 100 / 100 Weight 125 kg Intake: IV 520 / 520 350 / 350 100 / 100 Diprivan 1000 mg/100 ml Inj 1, 300 / 300 300 / 300 100 / 100 000 mg In 100 ml @ 5 MCG/KG/MIN 3.708 mls/hr IV.CONT TITRATE PRN Rx#:[id number] Calcium Gluconate Inj 2 GM In 120 / 120 NS Inj 100 ML @ 120 mls/hr IV. SIG ONCE ONE Rx#:[id number] Zosyn 2.25 GM Premix 2.25 gm In 100 / 100 50 / 50 50 ml @ 100 mls/hr IV.SIG Q8H DOMENICO Rx#:[id number] Oral 0 / 0 Tube Feeding 75 / 75 247 / 247 Output: Urine 0 / 0 Other: # Bowel Movements 0 Narrative: GENERAL: Well-developed, obese. sedated and intubated NECK: No carotid bruits. No JVD. CARDIOVASCULAR: Regular rate and rhythm. 2/6 XAVIER. 1+bl LE edema RESPIRATORY: Diminished at bases with scattered rhonchi MUSCULOSKELETAL: No clubbing or cyanosis. 1+ generalized edema. NEUROLOGICAL: sedated Assessment and Plan - Assessment (1) End stage renal disease Code(s): N18.6 - End stage renal disease Status: Acute Plan: Pateint with ESRD, on Home HD. HD was done yesterday, and tolerated well. -For cardiac catheterization once breathing is better. Now on CPAP and getting ABG. -PhosLo and Sensipar was started. Calcium is still low, on Phoslo, Will hold Sensipar for now and follow PTH. Cardiac Cath. as per Cardiology. HD will be in AM. Dr. Vasquez will follow. 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
[2018-04-17] MEDS: Insulin NovoLIN Regular Correctional Sugar Inj SQ SCH ×2 (11:40→17:11)
[2018-04-17] MEDS: Heparin - SQ 10,000 UNITS/ML Vial SQ SCH (12:02)
--- NOTE | 2018-04-17 13:03 | P.DIET ---
Nutritional Evaluation Type of nutrition evaluation: initial Nutrition consult regarding: Tube Feeding Objective - Diagnosis Cardiopulmonary arrest with rosc - Objective % IBW: 159 Body Weight Used for Calculations: IBW (78.2kg) Energy Needs - Lower Range (kCal/kg): 25 Energy Needs - Upper Range (kCal/kg): 30 Lower Limit kCal/kg (kCals): 1,955 Upper Limit kCal/kg (kCals): 2,346 Lower Limit Protein Factor (Grams per Kg): 1.2 Upper Limit Protein Factor (Grams per Kg): 1.4 Lower Protein Needs (Protein): 94 Upper Protein Needs (Protein): 110 Dietitian Reviewed in Medical Record: Current diet, Curent medications, Intake & Output, Labs, Medical history, Tube feeding Diet Order: NPO Objective Comments: Pt with multiple medical comorbidities, see H+P Assessment Assessment: Pt at nutritional risk r/t need for TF for nutrition support. Pt intubated/ sedated on propofol. Nutritional needs as assessed above. TF Nepro with goal rate 40ml/hr has been initiated. To best meet pt's nutritional needs, recommend a goal rate of 50ml/hr to provide 2160kcals, 97gms protein and 872mls free water. Propofol adds kcals when running. Will monitor TF tolerance, clinical course. Recommendations: TF Nepro with goal rate 50ml/hr Dietitian to Monitor: Lab values, Renal labs, Intake & Output, Diet tolerance, Weight change, Medical course
[2018-04-18 00:37] LABS: Calcium 6.1 mg/dL (8.5-10.1); Carbon Dioxide 19.5 meq/L (21.0-32.0); Potassium 5.5 meq/L (3.5-5.1)
[2018-04-18] MEDS: Propofol 1000 mg/100 ml Inj 1,000 MG/100 ML BOTTLE IV.CONT PRN ×7 (00:39→23:40)
[2018-04-18] MEDS: Heparin - SQ 10,000 UNITS/ML Vial SQ SCH ×2 (00:40→14:34)
[2018-04-18] MEDS: Insulin NovoLIN Regular Correctional Sugar Inj SQ SCH ×6 (01:04→20:07)
[2018-04-18 01:10] LABS: Calcium-Albumin Corrected 6.9 mg/dL (8.5-10.1)
[2018-04-18] MEDS ORDERED: Dextrose 50% in Water 50 ML Vial IV.PUSH PRN ×2 (02:05→07:48)
[2018-04-18] MEDS: Piperacil/Tazo 2.25 GM Premix 2.25 GM/50 ML PIGGYBACK IV.SIG SCH ×3 (02:23→17:49)
[2018-04-18] MEDS: MethylPREDNISolone Sod Succinate Inj 40 MG/ML Vial IV.PUSH SCH (05:33)
[2018-04-18 06:04] LABS: Albumin 2.9 g/dL (3.4-5.0); Carbon Dioxide 20.3 meq/L (21.0-32.0); Magnesium 2.9 mg/dL (1.5-2.5); Potassium 5.6 meq/L (3.5-5.1); Total Protein 6.6 g/dL (6.4-8.2)
[2018-04-18] MEDS: Isosorbide Mononitrate 60 MG ER 24HR Tablet (Imdur) PO SCH (06:23)
--- NOTE | 2018-04-18 07:48 | P.PNCC ---
Subjective Subjective Remarks/Hospital Course: The patient is a 57-year-old male with multiple medical comorbidities which include end-stage renal disease, on hemodialysis, being followed by Dr. Vogel, status post renal transplant in 2004, hypertension, diabetes mellitus, coronary artery disease with previous coronary artery bypass grafting in 2003. The patient was getting his colonoscopy and while being sedated, he had an asystolic episode. He received 2 rounds of epinephrine and chest compressions performed. He was initially intubated, and on arrival to the ER, he was extubated. The patient was awake, alert, and oriented. He does not recall anything that happened. He reports mild chest discomfort on the right side of his chest wall due to chest compressions. No other complaints were reported. He denies any shortness of breath, orthopnea, PND, or edema of lower extremities. Also, he denies any cough, wheezing or constitutional symptoms 2 Reconsult for resp distress. Patient reports SOB on 4L oxygen, tachycardic and tachypneic. s/p HD earlier today with removal 2.8L. CXR from yesterday increasing density left lung base. Afebrile. 2/ Patient was intubated yesterday sedated with Diprivan. On PRVC with PEEP:5 and FIO2 50%. Afebrile. 04/17 Patient remains intubated and sedated. Afebrile. 04/18 Patient remains sedated and intubated. For HD today. Tolerated CPAP for several hrs yesterday. Objective Vital Signs / I&O: Vital Signs 04/17/18 08:00 04/17/18 08:21 04/17/18 08:41 Temperature 97.5 F L Pulse Rate 75 71 70 Respiratory Rate 20 15 14 Blood Pressure 127/60 129/60 112/52 L Pulse Oximetry 100 94 L 92 L 04/17/18 09:00 04/17/18 10:00 04/17/18 11:00 Temperature Pulse Rate 72 78 77 Respiratory Rate 19 25 H Blood Pressure Pulse Oximetry 92 L 04/17/18 11:56 04/17/18 12:00 04/17/18 13:00 Temperature 98.6 F Pulse Rate 77 77 Respiratory Rate 21 23 Blood Pressure 101/58 L Pulse Oximetry 92 L 04/17/18 14:00 04/17/18 15:00 04/17/18 15:52 Temperature Pulse Rate 77 77 Respiratory Rate 20 20 Blood Pressure Pulse Oximetry 92 L 04/17/18 16:00 04/17/18 16:41 04/17/18 17:00 Temperature 98.0 F Pulse Rate 78 79 Respiratory Rate 21 22 Blood Pressure 114/56 L 109/55 L Pulse Oximetry 93 L 93 L 04/17/18 17:03 04/17/18 17:21 04/17/18 17:41 Temperature Pulse Rate 78 79 80 Respiratory Rate 19 21 23 Blood Pressure 123/58 L 126/58 L 141/61 H Pulse Oximetry 93 L 92 L 93 L 04/17/18 18:00 04/17/18 18:01 04/17/18 18:20 Temperature Pulse Rate 79 79 78 Respiratory Rate 22 22 22 Blood Pressure 123/59 L 122/58 L Pulse Oximetry 92 L 92 L 92 L 04/17/18 18:40 04/17/18 19:00 04/17/18 19:21 Temperature Pulse Rate 79 80 80 Respiratory Rate 23 23 25 H Blood Pressure 122/77 120/59 L 127/61 Pulse Oximetry 90 L 91 L 90 L 04/17/18 19:40 04/17/18 19:48 04/17/18 20:00 Temperature 100.2 F H Pulse Rate 82 83 83 Respiratory Rate 24 22 25 H Blood Pressure 127/60 127/60 Pulse Oximetry 92 L 92 L 92 L 04/17/18 20:01 04/17/18 20:20 04/17/18 20:40 Temperature Pulse Rate 83 80 82 Respiratory Rate 24 28 H 27 H Blood Pressure 133/60 114/56 L 116/59 L Pulse Oximetry 92 L 92 L 93 L 04/17/18 21:00 04/17/18 21:20 04/17/18 21:40 Temperature Pulse Rate 82 82 84 Respiratory Rate 25 H 24 26 H Blood Pressure 108/54 L 113/55 L 112/58 L Pulse Oximetry 93 L 93 L 96 04/17/18 22:00 04/17/18 22:20 04/17/18 22:41 Temperature Pulse Rate 85 82 83 Respiratory Rate 26 H 26 H 25 H Blood Pressure 123/60 123/58 L 126/58 L Pulse Oximetry 95 94 L 93 L 04/17/18 23:00 04/17/18 23:01 04/17/18 23:20 Temperature Pulse Rate 82 82 82 Respiratory Rate 22 23 26 H Blood Pressure 133/61 134/60 Pulse Oximetry 91 L 91 L 92 L 04/17/18 23:40 04/18/18 00:00 04/18/18 00:01 Temperature 100.1 F H Pulse Rate 83 82 82 Respiratory Rate 27 H 27 H 25 H Blood Pressure 135/60 129/56 L Pulse Oximetry 91 L 92 L 91 L 04/18/18 00:21 04/18/18 00:40 04/18/18 01:00 Temperature Pulse Rate 81 83 82 Respiratory Rate 24 24 24 Blood Pressure 119/56 L 124/57 L 111/59 L Pulse Oximetry 92 L 93 L 92 L 04/18/18 01:21 04/18/18 01:41 04/18/18 02:00 Temperature Pulse Rate 82 78 77 Respiratory Rate 29 H 19 19 Blood Pressure 124/58 L 129/57 L Pulse Oximetry 93 L 92 L 91 L 04/18/18 02:01 04/18/18 02:21 04/18/18 02:41 Temperature Pulse Rate 77 75 74 Respiratory Rate 18 19 18 Blood Pressure 119/54 L 111/53 L 114/53 L Pulse Oximetry 91 L 91 L 92 L 04/18/18 03:00 04/18/18 03:11 04/18/18 03:12 Temperature Pulse Rate 73 75 75 Respiratory Rate 35 H 22 19 Blood Pressure 108/54 L Pulse Oximetry 77 L 94 L 04/18/18 04:00 04/18/18 04:05 04/18/18 05:00 Temperature 98.3 F Pulse Rate 75 75 Respiratory Rate 19 19 Blood Pressure 114/55 L Pulse Oximetry 92 L 93 L 04/18/18 06:00 Temperature Pulse Rate 79 Respiratory Rate Blood Pressure Pulse Oximetry Intake & Output 04/17/18 04/18/18 04/18/18 18:59 06:59 18:59 Intake Total 808 / 808 775 / 775 Output Total 0 / 0 0 / 0 Balance 808 / 808 775 / 775 Weight 124.3 kg Intake: IV 500 / 500 250 / 250 Diprivan 1000 mg/100 ml Inj 1, 400 / 400 200 / 200 000 mg In 100 ml @ 5 MCG/KG/MIN 3.708 mls/hr IV.CONT TITRATE PRN Rx#:[id number] Zosyn 2.25 GM Premix 2.25 gm In 100 / 100 50 / 50 50 ml @ 100 mls/hr IV.SIG Q8H DOMEN[place] Rx#:[id number] Oral 0 / 0 Tube Feeding 308 / 308 445 / 445 Tube Irrigant 80 / 80 Output: Urine 0 / 0 0 / 0 Other: # Bowel Movements 0 0 Result Diagrams: 04/17/18 04:58 04/18/18 05:14 Other Results: Laboratory Results - last 12 hr 04/17/18 04/17/18 04/18/18 23:29 23:55 04:57 Sodium 129 L Potassium 5.5 H D Chloride 92 L Carbon Dioxide 19.5 L Anion Gap 18 H BUN 115 H Creatinine 10.24 H* Estimated GFR 5 L POC Glucose 450 H 528 H* Random Glucose 441 H D Calcium 6.1 L* Calcium Adj for Albumin 6.9 L* Magnesium Total Bilirubin AST ALT Alkaline Phosphatase Total Protein Albumin 3.0 L 04/18/18 05:14 Sodium 130 L Potassium 5.6 H Chloride 91 L Carbon Dioxide 20.3 L Anion Gap 19 H BUN 124 H Creatinine 10.32 H* Estimated GFR 5 L POC Glucose Random Glucose 475 H* Calcium 6.0 L* Calcium Adj for Albumin 6.9 L* Magnesium 2.9 H Total Bilirubin 0.6 AST 8 L ALT 18 Alkaline Phosphatase 164 H Total Protein 6.6 Albumin 2.9 L Imaging: Chest CTA 04/12/18 00:00 CONCLUSION: 1. No CT evidence for pulmonary artery embolism as questioned. 2. Cardiomegaly with trace bilateral pleural effusions and mild airspace consolidation at the lung bases which may reflect compressive atelectasis. Differential considerations include aspiration in the appropriate clinical setting. 3. Trace perihepatic ascites fluid. Chest X-Ray 04/16/18 07:02 CONCLUSION: 1. Endotracheal tube appears to have been advanced and now projects 4 cm below the level of clavicles. 2. Orogastric tube with the proximal port at the level of the diaphragm. Recommend advancement. 3. Cardiomegaly with radiographic findings consistent with volume overload versus congestive heart failure. Objective Remarks: GENERAL: Patient is 67 yo intubated SKIN: Warm and dry. HEAD: Normocephalic. EYES: No scleral icterus. No injection or drainage. NECK: Supple, trachea midline. No JVD or lymphadenopathy. CARDIOVASCULAR: Regular rate and rhythm without murmurs, gallops, or rubs. RESPIRATORY: Breath sounds equal bilaterally. Scattered wheezing and rhonchi GASTROINTESTINAL: Abdomen soft, non-tender, nondistended. MUSCULOSKELETAL: No cyanosis,+ edema. Neuro: Intubated, sedated. Assessment and Plan - Assessment and Plan Plan: 1. VDRF intubated 04/15 2. s/p post cardiopulmonary arrest, asystolic event during colonoscopy 3. ESRD, on hemodialysis. 4. Leukocytosis. 5. Anemia. 6. Hypocalcemia. 7. Hypertension. 8. Diabetes mellitus. 9. COPD 10. Previous renal transplant in 2004. 11. CAD/CABG in 2003. 12. GERD 13. SVT Plan Neuro: On Diprivan infusion for sedation. Daily sedation vacation. Monitor neuro status closely Pulm: Continue with vent support and maintain sats >92%. On PRVC RR 18, TV 550, IT:0.9, PEEP: 5, FIO2: 40% Bronchodilators, ICU vent bundle SBT daily as elda. d/c solumederol and place on Prednisone 5mg daily ( home med) CV: Monitor HR and BP and maintain MAP >65 mmHg. Cards is following- Dr. Arredondo. For LHC when resp status improves Echo showed EF 50-55% On ASA, Lipitor, Imdur : Monitor renal function, I's and O's and avoid nephrotoxins. Renal is following. s/p HD 04/15 with removal 2.8L For HD today ID: Continue abx on Zosyn/Vanco monitor for signs of infections ( fever, WBC) Follow up on sputum cx. GI: On Protonix 40 mg daily. On tube feeds- Nepro with goal rate 50ml/hr per nut. recommendations. Heme: Monitor CBC. Endo: Place on insulin drip and d/c solumederol and place on Prednisone 5mg daily GI prophylaxis- on Protonix 40 mg daily DVT prophylaxis- on SCD and heparin subcu Level 3
[2018-04-18 08:30] LABS: Baso % (Auto) 0.2 % (0.0-2.0); Hemoglobin 9.4 gm/dL (13.0-17.0); Lymph # (Auto) 0.3 th/mm3 (1.0-4.8); Lymph % (Auto) 2.7 % (9.0-44.0); Mean Corpuscular HGB Conc 32.2 % (32.0-36.0); Mean Corpuscular Hemoglobin 28.8 pg (27.0-34.0); Mean Corpuscular Volume 89.2 fL (80.0-100.0); Mean Platelet Volume 9.1 fL (7.0-11.0); Mono # (Auto) 0.4 th/mm3 (0.0-0.9); Mono % (Auto) 4.1 % (0.0-8.0); Platelet Count 152 th/mm3 (150-450); Red Blood Count 3.25 mil/mm3 (4.50-5.90); Red Cell Distribution Width 17.8 % (11.6-17.2); White Blood Count 9.7 th/mm3 (4.0-11.0)
--- NOTE | 2018-04-18 08:45 | P.PNCA ---
Subjective Interval history: Patient's status is unchanged from yesterday. Sedated / intubated. Undergoing HD today. No events reported overnight. No events on telemetry overnight. Medications and Allergies Active Medications: Active Medications Hydrocodone Bitart/Acetaminophen ([place] 10/325) 1 tab PO Q6H PRN PRN Reason: PAIN SCALE 6 TO 10 Last Admin: 04/15/18 01:42 Dose: 1 tab Albuterol (Duoneb Neb (Prn)) 1 ampul NEB Q2HR NEB PRN PRN Reason: WHEEZING Last Admin: 04/15/18 06:05 Dose: 1 ampul Albuterol (Duoneb Neb (Chel)) 1 ampul NEB Q4HR NEB CHEL Last Admin: 04/18/18 07:46 Dose: 1 ampul Aspirin (Ecotrin) 81 mg PO DAILY [facility] Last Admin: 04/17/18 08:01 Dose: 81 mg Atorvastatin Calcium (Lipitor) 40 mg PO HS [facility] Last Admin: 04/17/18 20:15 Dose: 40 mg Bisacodyl (Dulcolax Supp) 10 mg RECTAL DAILY PRN PRN Reason: SEVERE CONSITIPATION Calcium Acetate (Phoslo) 1,334 mg PO TID [facility] Last Admin: 04/17/18 17:11 Dose: 1,334 mg Clonidine HCl (Catapres) 0.1 mg PO UNSCH PRN PRN Reason: SEE LABEL COMMENTS Dextrose (D50w Vial) 50 ml IV.PUSH UNSCH PRN PRN Reason: PER HYPOGLYCEMIA PROTOCOL Diphenhydramine HCl (Benadryl) 25 mg PO UNSCH PRN PRN Reason: SEE LABEL COMMENTS Epoetin Gian (Epogen Inj) 4,000 unit IV.PUSH UNSCH PRN PRN Reason: SEE LABEL COMMENTS Last Admin: 04/15/18 09:06 Dose: 4,000 unit Gelatin (Gelfoam 12 Mm/7 Mm Topical) 1 foam TOPICAL PRN PRN PRN Reason: help stop bleeding from site Gentamicin Sulfate (Gentamicin Inj) 20 mg OTHER WITH DIALYSIS PRN PRN Reason: Dwell Gentamycin Lock Glucagon (Glucagon Inj) 1 mg OTHER PRN PRN PRN Reason: for Hypoglycemia Protocol Heparin Sodium (Porcine) (Heparin Inj) 5,000 units SQ Q12H [facility] Last Admin: 04/18/18 00:40 Dose: 5,000 units Heparin Sodium (Porcine) (Heparin Inj) 8,000 units OTHER WITH DIALYSIS PRN PRN Reason: for machine prime Heparin Sodium (Porcine) (Heparin Inj) 1,000 units OTHER WITH DIALYSIS PRN PRN Reason: Dwell Heparin to Fill Catheter Albumin Human (Flexbumin 25% Inj) 100 mls @ 60 mls/hr IV.SIG WITH DIALYSIS PRN PRN Reason: hypotension / volume replace Last Infusion: 04/15/18 09:14 Dose: Infused Sodium Chloride (Ns Inj) 1,000 mls @ 0 mls/hr OTHER .Q0M PRN PRN Reason: for prime and rinse back Sodium Chloride (Ns Inj) 1,000 mls @ 200 mls/hr OTHER .Q5H PRN PRN Reason: for dialyzer flush PRN Sodium Chloride (Ns Inj) 1,000 mls @ 0 mls/hr IV.CONT .Q0M PRN PRN Reason: hypotension / volume replace Piperacillin/Tazobactam/Dextrose (Zosyn 2.25 Gm Premix) 2.25 gm in 50 mls @ 100 mls/hr IV.SIG Q8H CHEL Last Infusion: 04/18/18 03:25 Dose: Infused Vancomycin HCl 1,000 mg/ (Sodium Chloride) 250 mls @ 250 mls/hr IV.SIG WITH DIALYSIS CHEL Propofol (Diprivan 1000 Mg/100 Ml Inj) 1,000 mg in 100 mls @ 3.708 mls/hr IV.CONT TITRATE PRN; Protocol PRN Reason: Per Protocol Last Admin: 04/18/18 06:53 Dose: 50 mcg/kg/min, 37.08 mls/hr Insulin Human Regular 100 unit (/ Sodium Chloride) 100 mls @ 0 mls/hr IV.CONT TITRATE PRN; Protocol PRN Reason: See protocol Insulin Human Regular (Novolin R [employer]al Sugar Inj) 0 units SQ Q4HR CHEL; Protocol Last Admin: 04/18/18 05:30 Dose: 25 units Isosorbide Mononitrate (Imdur) 120 mg PO DAILY@0700 [facility] Last Admin: 04/18/18 06:23 Dose: Not Given Lactulose (Lactulose Liq) 30 ml PO DAILY PRN PRN Reason: SEVERE CONSITIPATION Last Admin: 04/15/18 01:42 Dose: 30 ml Mannitol (Mannitol Inj) 12.5 gm IV.PUSH UNSCH PRN PRN Reason: hypotension / volume replace Nitroglycerin (Nitrostat Sl) 0.4 mg SL Q5M PRN PRN Reason: CHEST PAIN Ondansetron HCl (Zofran Inj) 4 mg IV.PUSH Q6H PRN PRN Reason: NAUSEA OR VOMITING Pantoprazole Sodium (Protonix Inj) 40 mg IV.PUSH DAILY [facility] Last Admin: 04/17/18 08:01 Dose: 40 mg Prednisone (Deltasone) 5 mg PO DAILY [facility] Senna/Docusate Sodium (Maribel-Colace) 1 tab PO BID [facility] Last Admin: 04/17/18 20:15 Dose: 1 tab Sennosides (Senokot) 17.2 mg PO Q12H PRN PRN Reason: Moderate Constipation Sodium Chloride (Ns Flush) 2 ml IV.FLUSH UNSCH PRN PRN Reason: FLUSH AFTER USING IV ACCESS Sodium Chloride (Ns Flush) 2 ml IV.FLUSH BID [facility] Last Admin: 04/17/18 20:15 Dose: 2 ml Sodium Chloride (Ns Flush) 5 ml IV.FLUSH PRN PRN PRN Reason: flush each lumen during HD Allergies Allergy/AdvReac Type Severity Reaction Status Date / Time No Known Allergies Allergy Verified 04/11/18 10:33 Home Medications Medication Instructions Recorded Confirmed Type furosemide 80 mg PO DAILY 11/10/17 04/11/18 History insulin glargine [Lantus U-100 25 unit SUB-Q HS 11/10/17 04/11/18 History Insulin] prednisone 5 mg PO DAILY 11/10/17 04/11/18 History sevelamer carbonate [Renvela] 1,600 mg PO TIDAC 11/10/17 04/11/18 History albuterol sulfate [Ventolin HFA] 2 puff INHALATION Q4-6H PRN 04/11/18 04/11/18 History Physical Exam Vital signs: Vital Signs 04/17/18 09:00 04/17/18 10:00 04/17/18 11:00 Temperature Pulse Rate 72 78 77 Respiratory Rate 19 25 H Blood Pressure Pulse Oximetry 92 L 04/17/18 11:56 04/17/18 12:00 04/17/18 13:00 Temperature 98.6 F Pulse Rate 77 77 Respiratory Rate 21 23 Blood Pressure 101/58 L Pulse Oximetry 92 L 04/17/18 14:00 04/17/18 15:00 04/17/18 15:52 Temperature Pulse Rate 77 77 Respiratory Rate 20 20 Blood Pressure Pulse Oximetry 92 L 04/17/18 16:00 04/17/18 16:41 04/17/18 17:00 Temperature 98.0 F Pulse Rate 78 79 Respiratory Rate 21 22 Blood Pressure 114/56 L 109/55 L Pulse Oximetry 93 L 93 L 04/17/18 17:03 04/17/18 17:21 04/17/18 17:41 Temperature Pulse Rate 78 79 80 Respiratory Rate 19 21 23 Blood Pressure 123/58 L 126/58 L 141/61 H Pulse Oximetry 93 L 92 L 93 L 04/17/18 18:00 04/17/18 18:01 04/17/18 18:20 Temperature Pulse Rate 79 79 78 Respiratory Rate 22 22 22 Blood Pressure 123/59 L 122/58 L Pulse Oximetry 92 L 92 L 92 L 04/17/18 18:40 04/17/18 19:00 04/17/18 19:21 Temperature Pulse Rate 79 80 80 Respiratory Rate 23 23 25 H Blood Pressure 122/77 120/59 L 127/61 Pulse Oximetry 90 L 91 L 90 L 04/17/18 19:40 04/17/18 19:48 04/17/18 20:00 Temperature 100.2 F H Pulse Rate 82 83 83 Respiratory Rate 24 22 25 H Blood Pressure 127/60 127/60 Pulse Oximetry 92 L 92 L 92 L 04/17/18 20:01 04/17/18 20:20 04/17/18 20:40 Temperature Pulse Rate 83 80 82 Respiratory Rate 24 28 H 27 H Blood Pressure 133/60 114/56 L 116/59 L Pulse Oximetry 92 L 92 L 93 L 04/17/18 21:00 04/17/18 21:20 04/17/18 21:40 Temperature Pulse Rate 82 82 84 Respiratory Rate 25 H 24 26 H Blood Pressure 108/54 L 113/55 L 112/58 L Pulse Oximetry 93 L 93 L 96 04/17/18 22:00 04/17/18 22:20 04/17/18 22:41 Temperature Pulse Rate 85 82 83 Respiratory Rate 26 H 26 H 25 H Blood Pressure 123/60 123/58 L 126/58 L Pulse Oximetry 95 94 L 93 L 04/17/18 23:00 04/17/18 23:01 04/17/18 23:20 Temperature Pulse Rate 82 82 82 Respiratory Rate 22 23 26 H Blood Pressure 133/61 134/60 Pulse Oximetry 91 L 91 L 92 L 04/17/18 23:40 04/18/18 00:00 04/18/18 00:01 Temperature 100.1 F H Pulse Rate 83 82 82 Respiratory Rate 27 H 27 H 25 H Blood Pressure 135/60 129/56 L Pulse Oximetry 91 L 92 L 91 L 04/18/18 00:21 04/18/18 00:40 04/18/18 01:00 Temperature Pulse Rate 81 83 82 Respiratory Rate 24 24 24 Blood Pressure 119/56 L 124/57 L 111/59 L Pulse Oximetry 92 L 93 L 92 L 04/18/18 01:21 04/18/18 01:41 04/18/18 02:00 Temperature Pulse Rate 82 78 77 Respiratory Rate 29 H 19 19 Blood Pressure 124/58 L 129/57 L Pulse Oximetry 93 L 92 L 91 L 04/18/18 02:01 04/18/18 02:21 04/18/18 02:41 Temperature Pulse Rate 77 75 74 Respiratory Rate 18 19 18 Blood Pressure 119/54 L 111/53 L 114/53 L Pulse Oximetry 91 L 91 L 92 L 04/18/18 03:00 04/18/18 03:11 04/18/18 03:12 Temperature Pulse Rate 73 75 75 Respiratory Rate 35 H 22 19 Blood Pressure 108/54 L Pulse Oximetry 77 L 94 L 04/18/18 04:00 04/18/18 04:05 04/18/18 05:00 Temperature 98.3 F Pulse Rate 75 75 Respiratory Rate 19 19 Blood Pressure 114/55 L Pulse Oximetry 92 L 93 L 04/18/18 06:00 04/18/18 07:47 04/18/18 07:48 Temperature Pulse Rate 79 74 Respiratory Rate 18 19 Blood Pressure Pulse Oximetry 97 Intake & Output 04/17/18 04/18/18 04/18/18 18:59 06:59 18:59 Intake Total 808 / 808 775 / 775 Output Total 0 / 0 0 / 0 Balance 808 / 808 775 / 775 Weight 124.3 kg Intake: IV 500 / 500 250 / 250 Diprivan 1000 mg/100 ml Inj 1, 400 / 400 200 / 200 000 mg In 100 ml @ 5 MCG/KG/MIN 3.708 mls/hr IV.CONT TITRATE PRN Rx#:[id number] Zosyn 2.25 GM Premix 2.25 gm In 100 / 100 50 / 50 50 ml @ 100 mls/hr IV.SIG Q8H CHEL Rx#:[id number] Oral 0 / 0 Tube Feeding 308 / 308 445 / 445 Tube Irrigant 80 / 80 Output: Urine 0 / 0 0 / 0 Other: # Bowel Movements 0 0 Narrative: GENERAL: Well-developed, obese. sedated and intubated NECK: No carotid bruits. No JVD. CARDIOVASCULAR: Regular rate and rhythm. 2/6 XAVIER. 1+bl LE edema RESPIRATORY: Diminished at bases with scattered rhonchi MUSCULOSKELETAL: No clubbing or cyanosis. NEUROLOGICAL: sedated Results 04/18/18 06:50 04/18/18 05:14 Cardiac Enzymes 04/17/18 04/18/18 Range/Units 04:58 05:14 AST 12 L 8 L (15-37) U/L CBC 04/17/18 04/18/18 Range/Units 04:58 06:50 WBC 8.5 9.7 (4.0-11.0) th/mm3 RBC 3.32 L 3.25 L (4.50-5.90) mil/mm3 Hgb 9.4 L 9.4 L (13.0-17.0) gm/dL Hct 29.7 L 29.0 L (39.0-51.0) % Plt Count 156 152 (150-450) th/mm3 Neut # (Auto) 7.9 H 9.0 H (1.8-7.7) th/mm3 Lymph # (Auto) 0.3 L 0.3 L (1.0-4.8) th/mm3 [place] # (Auto) 0.3 0.4 (0.0-0.9) th/mm3 Eos # (Auto) 0.0 0.0 (0.0-0.4) th/mm3 Baso # (Auto) 0.0 0.0 (0.0-0.2) th/mm3 Comprehensive Metabolic Panel 04/17/18 04/17/18 04/18/18 Range/Units 04:58 23:55 05:14 Sodium 132 L 129 L 130 L (136-145) meq/L Potassium 4.6 5.5 H D 5.6 H (3.5-5.1) meq/L Chloride 93 L 92 L 91 L (98-107) meq/L Carbon Dioxide 20.6 L 19.5 L 20.3 L (21.0-32.0) meq/L BUN 87 H 115 H 124 H (7-18) mg/dL Creatinine 9.50 H 10.24 H* 10.32 H* (0.60-1.30) mg/dL Calcium 6.4 L* 6.1 L* 6.0 L* (8.5-10.1) mg/dL AST 12 L 8 L (15-37) U/L ALT 15 18 (12-78) U/L Alkaline Phosphatase 110 164 H (45-117) U/L Total Protein 7.1 6.6 (6.4-8.2) g/dL Albumin 3.1 L 3.0 L 2.9 L (3.4-5.0) g/dL Intake and Output 04/17/18 04/18/18 04/18/18 22:59 06:59 14:59 Intake Total 658 / 658 675 / 675 Output Total 0 / 0 0 / 0 Balance 658 / 658 675 / 675 Intake: IV 350 / 350 150 / 150 Diprivan 1000 mg/100 ml Inj 1, 300 / 300 100 / 100 000 mg In 100 ml @ 5 MCG/KG/MIN 3.708 mls/hr IV.CONT TITRATE PRN Rx#:[id number] Zosyn 2.25 GM Premix 2.25 gm In 50 / 50 50 / 50 50 ml @ 100 mls/hr IV.SIG Q8H CHEL Rx#:[id number] Oral 0 / 0 Tube Feeding 308 / 308 445 / 445 Tube Irrigant 80 / 80 Output: Urine 0 / 0 0 / 0 Other: # Bowel Movements 0 0 Weight 124.3 kg Assessment and Plan - Plan 57-year-old male with CAD s/p 6v CABG 2003 and PCI to LCx 2015 w/ /6 grafts patent on LHC, ESRD on home HD 4x per week, HTN, HLD, DM. The patient was at [facility] getting colonoscopy done 04/11/18 and had reported asystolic cardiac arrest. Asystolic arrest during anesthesia for colonoscopy: No strips available, however no noted VT/VF. Minimal troponin elevation in the setting of ESRD. Previously reported intermittent chest pain symptoms. When the patient was tachycardic he did have ST depression. No significant arrhythmias noted on telemetry since admission. Acute respiratory failure, requiring endotracheal intubation and mechanical ventilation. suspected aspiration pneumonia. Continue IV antibiotics. Plan for cardiac catheterization after patient is optimized from a respiratory status. Atrial fibrillation, brief episodes in setting of respiratory distress on 04/15/18 , currently NSR. continue to monitor on telemetry. Avoid AVN agents currently with soft BP. No Anticoagulation therapy due to anemia and possible need for invasive procedures. Obtain records from [facility] if colonoscopy was completed what the results were. Please call when patient is extubated and ready for cardiac catheterization from a respiratory standpoint. Will sign off for now.
[2018-04-18] MEDS: Calcium Acetate 667 MG Capsule PO SCH ×3 (09:11→17:49)
[2018-04-18] MEDS: Pantoprazole Inj 40 MG Vial IV.PUSH SCH (09:11)
[2018-04-18] MEDS: Senna/Docusate Sodium 8.6/50 MG Tablet PO SCH ×2 (09:12→20:06)
[2018-04-18] MEDS: predniSONE 5 MG Tablet PO SCH (09:12)
[2018-04-18] MEDS: Insulin Regular (For Infusion) 100 UNIT in Sodium Chlor 0.9% Inj 99 ML IV.CONT PRN (09:48)
--- NOTE | 2018-04-18 10:24 | P.PNNP ---
Subjective Interval history: Patient was seen, intubated and sedated, 40% FiO2. Seen on dialysis, 1K with Calcium, 350 ml/min, UF goal 2.8 L. <Leeann Mcgarry - Last Filed: 04/18/18 10:24> Physical Exam Vital signs: Vital Signs 04/17/18 11:00 04/17/18 11:56 04/17/18 12:00 Temperature 98.6 F Pulse Rate 77 77 Respiratory Rate 25 H 21 23 Blood Pressure 101/58 L Pulse Oximetry 92 L 04/17/18 13:00 04/17/18 14:00 04/17/18 15:00 Temperature Pulse Rate 77 77 77 Respiratory Rate 20 Blood Pressure Pulse Oximetry 04/17/18 15:52 04/17/18 16:00 04/17/18 16:41 Temperature 98.0 F Pulse Rate 78 Respiratory Rate 20 21 Blood Pressure 114/56 L 109/55 L Pulse Oximetry 92 L 93 L 04/17/18 17:00 04/17/18 17:03 04/17/18 17:21 Temperature Pulse Rate 79 78 79 Respiratory Rate 22 19 21 Blood Pressure 123/58 L 126/58 L Pulse Oximetry 93 L 93 L 92 L 04/17/18 17:41 04/17/18 18:00 04/17/18 18:01 Temperature Pulse Rate 80 79 79 Respiratory Rate 23 22 22 Blood Pressure 141/61 H 123/59 L Pulse Oximetry 93 L 92 L 92 L 04/17/18 18:20 04/17/18 18:40 04/17/18 19:00 Temperature Pulse Rate 78 79 80 Respiratory Rate 22 23 23 Blood Pressure 122/58 L 122/77 120/59 L Pulse Oximetry 92 L 90 L 91 L 04/17/18 19:21 04/17/18 19:40 04/17/18 19:48 Temperature Pulse Rate 80 82 83 Respiratory Rate 25 H 24 22 Blood Pressure 127/61 127/60 Pulse Oximetry 90 L 92 L 92 L 04/17/18 20:00 04/17/18 20:01 04/17/18 20:20 Temperature 100.2 F H Pulse Rate 83 83 80 Respiratory Rate 25 H 24 28 H Blood Pressure 127/60 133/60 114/56 L Pulse Oximetry 92 L 92 L 92 L 04/17/18 20:40 04/17/18 21:00 04/17/18 21:20 Temperature Pulse Rate 82 82 82 Respiratory Rate 27 H 25 H 24 Blood Pressure 116/59 L 108/54 L 113/55 L Pulse Oximetry 93 L 93 L 93 L 04/17/18 21:40 04/17/18 22:00 04/17/18 22:20 Temperature Pulse Rate 84 85 82 Respiratory Rate 26 H 26 H 26 H Blood Pressure 112/58 L 123/60 123/58 L Pulse Oximetry 96 95 94 L 04/17/18 22:41 04/17/18 23:00 04/17/18 23:01 Temperature Pulse Rate 83 82 82 Respiratory Rate 25 H 22 23 Blood Pressure 126/58 L 133/61 Pulse Oximetry 93 L 91 L 91 L 04/17/18 23:20 04/17/18 23:40 04/18/18 00:00 Temperature 100.1 F H Pulse Rate 82 83 82 Respiratory Rate 26 H 27 H 27 H Blood Pressure 134/60 135/60 Pulse Oximetry 92 L 91 L 92 L 04/18/18 00:01 04/18/18 00:21 04/18/18 00:40 Temperature Pulse Rate 82 81 83 Respiratory Rate 25 H 24 24 Blood Pressure 129/56 L 119/56 L 124/57 L Pulse Oximetry 91 L 92 L 93 L 04/18/18 01:00 04/18/18 01:21 04/18/18 01:41 Temperature Pulse Rate 82 82 78 Respiratory Rate 24 29 H 19 Blood Pressure 111/59 L 124/58 L 129/57 L Pulse Oximetry 92 L 93 L 92 L 04/18/18 02:00 04/18/18 02:01 04/18/18 02:21 Temperature Pulse Rate 77 77 75 Respiratory Rate 19 18 19 Blood Pressure 119/54 L 111/53 L Pulse Oximetry 91 L 91 L 91 L 04/18/18 02:41 04/18/18 03:00 04/18/18 03:11 Temperature Pulse Rate 74 73 75 Respiratory Rate 18 35 H 22 Blood Pressure 114/53 L 108/54 L Pulse Oximetry 92 L 77 L 94 L 04/18/18 03:12 04/18/18 04:00 04/18/18 04:05 Temperature 98.3 F Pulse Rate 75 75 Respiratory Rate 19 19 19 Blood Pressure 114/55 L Pulse Oximetry 92 L 93 L 04/18/18 05:00 04/18/18 06:00 04/18/18 07:47 Temperature Pulse Rate 75 79 74 Respiratory Rate 18 Blood Pressure Pulse Oximetry 04/18/18 07:48 Temperature Pulse Rate Respiratory Rate 19 Blood Pressure Pulse Oximetry 97 Intake & Output 04/17/18 04/18/18 04/18/18 18:59 06:59 18:59 Intake Total 808 / 808 775 / 775 100 / 100 Output Total 0 / 0 0 / 0 Balance 808 / 808 775 / 775 100 / 100 Weight 124.3 kg Intake: IV 500 / 500 250 / 250 100 / 100 Diprivan 1000 mg/100 ml Inj 1, 400 / 400 200 / 200 100 / 100 000 mg In 100 ml @ 5 MCG/KG/MIN 3.708 mls/hr IV.CONT TITRATE PRN Rx#:[id number] Zosyn 2.25 GM Premix 2.25 gm In 100 / 100 50 / 50 50 ml @ 100 mls/hr IV.SIG Q8H [facility] Rx#:[id number] Oral 0 / 0 Tube Feeding 308 / 308 445 / 445 Tube Irrigant 80 / 80 Output: Urine 0 / 0 0 / 0 Other: # Bowel Movements 0 0 Narrative: GENERAL: Intubated and sedated. SKIN: Warm and dry. HEAD: Normocephalic. EYES: No injection or drainage. NECK: Supple, trachea midline. No JVD or lymphadenopathy. CARDIOVASCULAR: Regular rate and rhythm without murmurs, gallops, or rubs. RESPIRATORY: Breath sounds diminished. GASTROINTESTINAL: Abdomen soft, non-tender, nondistended. MUSCULOSKELETAL: No cyanosis, bilateral lower extremity edema, AVF left arm. Neuro: Intubated, sedated. <Leeann Mcgarry - Last Filed: 04/18/18 10:24> Vital signs: Vital Signs 04/17/18 15:00 04/17/18 15:52 04/17/18 16:00 Temperature 98.0 F Pulse Rate 77 78 Respiratory Rate 20 20 21 Blood Pressure 114/56 L Pulse Oximetry 92 L 93 L 04/17/18 16:41 04/17/18 17:00 04/17/18 17:03 Temperature Pulse Rate 79 78 Respiratory Rate 22 19 Blood Pressure 109/55 L 123/58 L Pulse Oximetry 93 L 93 L 04/17/18 17:21 04/17/18 17:41 04/17/18 18:00 Temperature Pulse Rate 79 80 79 Respiratory Rate 21 23 22 Blood Pressure 126/58 L 141/61 H Pulse Oximetry 92 L 93 L 92 L 04/17/18 18:01 04/17/18 18:20 04/17/18 18:40 Temperature Pulse Rate 79 78 79 Respiratory Rate 22 22 23 Blood Pressure 123/59 L 122/58 L 122/77 Pulse Oximetry 92 L 92 L 90 L 04/17/18 19:00 04/17/18 19:21 04/17/18 19:40 Temperature Pulse Rate 80 80 82 Respiratory Rate 23 25 H 24 Blood Pressure 120/59 L 127/61 127/60 Pulse Oximetry 91 L 90 L 92 L 04/17/18 19:48 04/17/18 20:00 04/17/18 20:01 Temperature 100.2 F H Pulse Rate 83 83 83 Respiratory Rate 22 25 H 24 Blood Pressure 127/60 133/60 Pulse Oximetry 92 L 92 L 92 L 04/17/18 20:20 04/17/18 20:40 04/17/18 21:00 Temperature Pulse Rate 80 82 82 Respiratory Rate 28 H 27 H 25 H Blood Pressure 114/56 L 116/59 L 108/54 L Pulse Oximetry 92 L 93 L 93 L 04/17/18 21:20 04/17/18 21:40 04/17/18 22:00 Temperature Pulse Rate 82 84 85 Respiratory Rate 24 26 H 26 H Blood Pressure 113/55 L 112/58 L 123/60 Pulse Oximetry 93 L 96 95 04/17/18 22:20 04/17/18 22:41 04/17/18 23:00 Temperature Pulse Rate 82 83 82 Respiratory Rate 26 H 25 H 22 Blood Pressure 123/58 L 126/58 L Pulse Oximetry 94 L 93 L 91 L 04/17/18 23:01 04/17/18 23:20 04/17/18 23:40 Temperature Pulse Rate 82 82 83 Respiratory Rate 23 26 H 27 H Blood Pressure 133/61 134/60 135/60 Pulse Oximetry 91 L 92 L 91 L 04/18/18 00:00 04/18/18 00:01 04/18/18 00:21 Temperature 100.1 F H Pulse Rate 82 82 81 Respiratory Rate 27 H 25 H 24 Blood Pressure 129/56 L 119/56 L Pulse Oximetry 92 L 91 L 92 L 04/18/18 00:40 04/18/18 01:00 04/18/18 01:21 Temperature Pulse Rate 83 82 82 Respiratory Rate 24 24 29 H Blood Pressure 124/57 L 111/59 L 124/58 L Pulse Oximetry 93 L 92 L 93 L 04/18/18 01:41 04/18/18 02:00 04/18/18 02:01 Temperature Pulse Rate 78 77 77 Respiratory Rate 19 19 18 Blood Pressure 129/57 L 119/54 L Pulse Oximetry 92 L 91 L 91 L 04/18/18 02:21 04/18/18 02:41 04/18/18 03:00 Temperature Pulse Rate 75 74 73 Respiratory Rate 19 18 35 H Blood Pressure 111/53 L 114/53 L Pulse Oximetry 91 L 92 L 77 L 04/18/18 03:11 04/18/18 03:12 04/18/18 04:00 Temperature 98.3 F Pulse Rate 75 75 75 Respiratory Rate 22 19 19 Blood Pressure 108/54 L 114/55 L Pulse Oximetry 94 L 92 L 04/18/18 04:05 04/18/18 05:00 04/18/18 06:00 Temperature Pulse Rate 75 79 Respiratory Rate 19 Blood Pressure Pulse Oximetry 93 L 04/18/18 07:47 04/18/18 07:48 04/18/18 08:00 Temperature 98.9 F Pulse Rate 74 74 Respiratory Rate 18 19 21 Blood Pressure 111/56 L Pulse Oximetry 97 91 L 04/18/18 11:36 Temperature Pulse Rate 79 Respiratory Rate 20 Blood Pressure Pulse Oximetry 91 L Intake & Output 04/17/18 04/18/18 04/18/18 18:59 06:59 18:59 Intake Total 808 / 808 775 / 775 250 / 250 Output Total 0 / 0 0 / 0 2500 / 2500 Balance 808 / 808 775 / 775 -2250 / -2250 Weight 124.3 kg Intake: IV 500 / 500 250 / 250 250 / 250 Diprivan 1000 mg/100 ml Inj 1, 400 / 400 200 / 200 200 / 200 000 mg In 100 ml @ 5 MCG/KG/MIN 3.708 mls/hr IV.CONT TITRATE PRN Rx#:[id number] Zosyn 2.25 GM Premix 2.25 gm In 100 / 100 50 / 50 50 / 50 50 ml @ 100 mls/hr IV.SIG Q8H [facility] Rx#:[id number] Oral 0 / 0 Tube Feeding 308 / 308 445 / 445 Tube Irrigant 80 / 80 Output: Urine 0 / 0 0 / 0 Hemodialysis Amount 2500 / 2500 Other: Date of Last Bowel Movement 04/10/18 # Bowel Movements 0 0 <ZackTramaine - Last Filed: 04/18/18 14:58> Assessment and Plan - Assessment (1) End stage renal disease Code(s): N18.6 - End stage renal disease Status: Acute Plan: Pateint with ESRD, on Home HD. Seen on dialysis, 1K with Calcium, 350 ml/min, UF goal 2.8 L. Hypocalcemia noted, patient on Phoslo. Will order Phosphorus level. Sensipar has been held for now, PTH level pending. Avoid blood draws or BP measurements in left arm due to AVF. (2) Hypertension Code(s): I10 - Essential (primary) hypertension Status: Acute Qualifiers: Hypertension type: essential hypertension Qualified Code(s): I10 - Essential (primary) hypertension Plan: Blood pressure currently within parameters. Continue to monitor titrate as needed. (3) Diabetes Code(s): E11.9 - Type 2 diabetes mellitus without complications Status: Acute Qualifiers: Diabetes mellitus terminal system operator insulin use: unspecified terminal system operator insulin use status Plan: Monitor blood glucose. Hyperglycemia noted. Placed on insulin drip today, solumederol discontinued and placed on Prednisone 5mg daily. Management per internal medicine (4) Cardiopulmonary arrest with successful resuscitation Code(s): I46.9 - Cardiac arrest, cause unspecified Status: Acute Plan: Cardiology consulted. Per note review, cardiology has signed off today and plan a cardiac catheterization when patient is extubated and ready for procedure from a respiratory standpoint. <Leeann Mcgarry - Last Filed: 04/18/18 10:24> - Assessment (1) End stage renal disease Code(s): N18.6 - End stage renal disease Status: Acute (2) Hypertension Code(s): I10 - Essential (primary) hypertension Status: Acute Qualifiers: Hypertension type: essential hypertension Qualified Code(s): I10 - Essential (primary) hypertension (3) Diabetes Code(s): E11.9 - Type 2 diabetes mellitus without complications Status: Acute Qualifiers: Diabetes mellitus fci insulin use: unspecified terminal system operator insulin use status (4) Cardiopulmonary arrest with successful resuscitation Code(s): I46.9 - Cardiac arrest, cause unspecified Status: Acute - Attending Attestation patient was seen and examined. Agree with above assessment and plan. Patient was seen during dialysis, on 1K, 3Calcium. UF about 2.5 liters. All the notes were reviewed. <Tramaine Dixon - Last Filed: 04/18/18 14:58>
[2018-04-18] MEDS: Vancomycin Inj 1,000 MG in Sodium Chlor 0.9% Inj 250 ML IV.SIG SCH (10:35)
[2018-04-18 17:31] LABS: ABG Base Excess 1.3 mmol/L (-2-2); ABG PCO2 41 mmHg (38-42); ABG PO2 80 mmHG (61-120)
[2018-04-19] MEDS: Heparin - SQ 10,000 UNITS/ML Vial SQ SCH ×2 (00:28→13:00)
[2018-04-19] MEDS: Insulin NovoLIN Regular Correctional Sugar Inj SQ SCH ×3 (00:29→09:18)
[2018-04-19] MEDS: Piperacil/Tazo 2.25 GM Premix 2.25 GM/50 ML PIGGYBACK IV.SIG SCH ×3 (01:32→17:24)
[2018-04-19] MEDS: Propofol 1000 mg/100 ml Inj 1,000 MG/100 ML BOTTLE IV.CONT PRN ×3 (04:48→23:13)
[2018-04-19] MEDS: Isosorbide Mononitrate 60 MG ER 24HR Tablet (Imdur) PO SCH (06:08)
--- NOTE | 2018-04-19 07:14 | P.PNCC ---
Subjective Subjective Remarks/Hospital Course: The patient is a 57-year-old male with multiple medical comorbidities which include end-stage renal disease, on hemodialysis, being followed by Dr. Vogel, status post renal transplant in 2004, hypertension, diabetes mellitus, coronary artery disease with previous coronary artery bypass grafting in 2003. The patient was getting his colonoscopy and while being sedated, he had an asystolic episode. He received 2 rounds of epinephrine and chest compressions performed. He was initially intubated, and on arrival to the ER, he was extubated. The patient was awake, alert, and oriented. He does not recall anything that happened. He reports mild chest discomfort on the right side of his chest wall due to chest compressions. No other complaints were reported. He denies any shortness of breath, orthopnea, PND, or edema of lower extremities. Also, he denies any cough, wheezing or constitutional symptoms 2 Reconsult for resp distress. Patient reports SOB on 4L oxygen, tachycardic and tachypneic. s/p HD earlier today with removal 2.8L. CXR from yesterday increasing density left lung base. Afebrile. 2 Patient was intubated yesterday sedated with Diprivan. On PRVC with PEEP:5 and FIO2 50%. Afebrile. 04/17 Patient remains intubated and sedated. Afebrile. 04/18 Patient remains sedated and intubated. For HD today. Tolerated CPAP for several hrs yesterday. 04/19 Patient remains sedated and intubated. s/p HD yesterday with removal 2.5L. Afebrile. On Insulin drip 3u/hr Objective Vital Signs / I&O: Vital Signs 04/18/18 07:47 04/18/18 07:48 04/18/18 08:00 Temperature 98.9 F Pulse Rate 74 74 Respiratory Rate 18 19 21 Blood Pressure 111/56 L Pulse Oximetry 97 91 L 04/18/18 11:36 04/18/18 12:00 04/18/18 14:30 Temperature 98.2 F Pulse Rate 79 82 Respiratory Rate 20 19 Blood Pressure 108/53 L 131/61 Pulse Oximetry 91 L 91 L 04/18/18 14:45 04/18/18 15:00 04/18/18 15:06 Temperature Pulse Rate 83 80 81 Respiratory Rate 21 15 15 Blood Pressure 141/59 H 129/60 Pulse Oximetry 92 L 92 L 92 L 04/18/18 15:15 04/18/18 15:30 04/18/18 15:45 Temperature Pulse Rate 82 81 82 Respiratory Rate 20 17 18 Blood Pressure 129/59 L 122/56 L 124/58 L Pulse Oximetry 91 L 91 L 91 L 04/18/18 16:00 04/18/18 16:15 04/18/18 16:30 Temperature 98.9 F Pulse Rate 83 83 83 Respiratory Rate 19 19 20 Blood Pressure 126/58 L 119/58 L 104/51 L Pulse Oximetry 91 L 93 L 92 L 04/18/18 16:45 04/18/18 17:00 04/18/18 17:15 Temperature Pulse Rate 84 89 87 Respiratory Rate 18 22 24 Blood Pressure 110/56 L 110/70 117/56 L Pulse Oximetry 91 L 93 L 91 L 04/18/18 17:30 04/18/18 17:46 04/18/18 18:00 Temperature Pulse Rate 91 H 91 H 90 Respiratory Rate 22 22 34 H Blood Pressure 119/66 136/62 Pulse Oximetry 87 L 91 L 85 L 04/18/18 18:01 04/18/18 18:15 04/18/18 18:36 Temperature Pulse Rate 87 85 80 Respiratory Rate 22 16 18 Blood Pressure 103/41 L 109/54 L 119/51 L Pulse Oximetry 92 L 92 L 93 L 04/18/18 19:00 04/18/18 19:01 04/18/18 19:16 Temperature Pulse Rate 82 82 80 Respiratory Rate 18 18 18 Blood Pressure 129/59 L 101/49 L Pulse Oximetry 93 L 93 L 93 L 04/18/18 19:31 04/18/18 19:49 04/18/18 20:00 Temperature Pulse Rate 82 82 86 Respiratory Rate 19 20 25 H Blood Pressure 145/65 H 108/51 L Pulse Oximetry 93 L 93 L 96 04/18/18 20:01 04/18/18 20:02 04/18/18 20:37 Temperature 99.2 F Pulse Rate 82 82 82 Respiratory Rate 23 22 18 Blood Pressure 127/52 L 113/74 Pulse Oximetry 96 95 93 L 04/18/18 21:00 04/18/18 21:30 04/18/18 22:00 Temperature Pulse Rate 81 81 79 Respiratory Rate 18 17 18 Blood Pressure 115/56 L 121/58 L 105/56 L Pulse Oximetry 93 L 93 L 93 L 04/18/18 22:30 04/18/18 23:00 04/18/18 23:30 Temperature Pulse Rate 82 82 80 Respiratory Rate 18 18 18 Blood Pressure 120/60 121/57 L 116/55 L Pulse Oximetry 93 L 93 L 93 L 04/19/18 00:00 04/19/18 00:30 04/19/18 00:49 Temperature 99.8 F H Pulse Rate 85 80 79 Respiratory Rate 19 15 22 Blood Pressure 129/61 128/61 Pulse Oximetry 93 L 92 L 95 04/19/18 01:00 04/19/18 01:30 04/19/18 02:00 Temperature Pulse Rate 79 75 72 Respiratory Rate 21 18 18 Blood Pressure 118/58 L 113/56 L 114/54 L Pulse Oximetry 92 L 92 L 91 L 04/19/18 02:30 04/19/18 03:00 04/19/18 03:30 Temperature Pulse Rate 71 73 75 Respiratory Rate 18 18 20 Blood Pressure 115/55 L 117/56 L 120/58 L Pulse Oximetry 92 L 92 L 92 L 04/19/18 04:00 04/19/18 04:05 04/19/18 04:52 Temperature 98.4 F Pulse Rate 77 76 78 Respiratory Rate 18 19 18 Blood Pressure 106/48 L 109/53 L Pulse Oximetry 95 97 96 04/19/18 04:59 04/19/18 05:00 04/19/18 05:36 Temperature Pulse Rate 76 77 75 Respiratory Rate 18 18 Blood Pressure 127/58 L Pulse Oximetry 95 95 04/19/18 06:00 Temperature Pulse Rate 78 Respiratory Rate Blood Pressure Pulse Oximetry Intake & Output 04/18/18 04/19/18 04/19/18 18:59 06:59 18:59 Intake Total 929 / 929 1065 / 1065 Output Total 5000 / 5000 Balance -4071 / -4071 1065 / 1065 Weight 121.1 kg Intake: IV 350 / 350 550 / 550 Diprivan 1000 mg/100 ml Inj 1, 300 / 300 200 / 200 000 mg In 100 ml @ 5 MCG/KG/MIN 3.708 mls/hr IV.CONT TITRATE PRN Rx#:[id number] Zosyn 2.25 GM Premix 2.25 gm In 50 / 50 100 / 100 50 ml @ 100 mls/hr IV.SIG Q8H [facility] Rx#:[id number] Vancomycin Inj 1,000 MG In NS 250 / 250 Inj 250 ML @ 250 mls/hr IV.SIG WITH DIALYSIS [facility] Rx#:[id number] Oral 0 / 0 Tube Feeding 489 / 489 415 / 415 Tube Irrigant 90 / 90 100 / 100 Output: Urine 0 / 0 Hemodialysis Amount 5000 / 5000 Other: # Voids 0 Date of Last Bowel Movement 04/18/18 04/18/18 # Bowel Movements 1 Result Diagrams: 04/18/18 06:50 04/18/18 05:14 Other Results: Laboratory Results - last 12 hr 04/18/18 04/18/18 04/18/18 19:30 20:29 21:28 POC Glucose 258 H 298 H 267 H 04/18/18 04/18/18 04/19/18 22:27 23:31 00:27 POC Glucose 294 H 266 H 291 H 04/19/18 04/19/18 04/19/18 01:32 02:36 03:30 POC Glucose 281 H 292 H 276 H 04/19/18 04/19/18 04/19/18 04:57 05:44 06:25 POC Glucose 283 H 298 H 273 H Imaging: Chest CTA 04/12/18 00:00 CONCLUSION: 1. No CT evidence for pulmonary artery embolism as questioned. 2. Cardiomegaly with trace bilateral pleural effusions and mild airspace consolidation at the lung bases which may reflect compressive atelectasis. Differential considerations include aspiration in the appropriate clinical setting. 3. Trace perihepatic ascites fluid. Chest X-Ray 04/16/18 07:02 CONCLUSION: 1. Endotracheal tube appears to have been advanced and now projects 4 cm below the level of clavicles. 2. Orogastric tube with the proximal port at the level of the diaphragm. Recommend advancement. 3. Cardiomegaly with radiographic findings consistent with volume overload versus congestive heart failure. Objective Remarks: GENERAL: Patient is 67 yo intubated SKIN: Warm and dry. HEAD: Normocephalic. EYES: No scleral icterus. No injection or drainage. NECK: Supple, trachea midline. No JVD or lymphadenopathy. CARDIOVASCULAR: Regular rate and rhythm without murmurs, gallops, or rubs. RESPIRATORY: Breath sounds equal bilaterally. Scattered wheezing and rhonchi GASTROINTESTINAL: Abdomen soft, non-tender, nondistended. MUSCULOSKELETAL: No cyanosis,+ edema. Neuro: Intubated, sedated. Assessment and Plan - Assessment and Plan Plan: 1. VDRF intubated 04/15 2. s/p post cardiopulmonary arrest, asystolic event during colonoscopy 3. ESRD, on hemodialysis. 4. Leukocytosis. 5. Anemia. 6. Hypocalcemia. 7. Hypertension. 8. Diabetes mellitus. 9. COPD 10. Previous renal transplant in 2004. 11. CAD/CABG in 2003. 12. GERD 13. SVT Plan Neuro: On Diprivan infusion for sedation. Daily sedation vacation. Monitor neuro status closely Pulm: Continue with vent support and maintain sats >92%. On PRVC RR 18, TV 550, IT:0.9, PEEP: 5, FIO2: 40% Bronchodilators, ICU vent bundle SBT daily as elda. Check CXR CV: Monitor HR and BP and maintain MAP >65 mmHg. Cards is following- Dr. Arredondo. For LHC when resp status improves Echo showed EF 50-55% On ASA, Lipitor, Imdur : Monitor renal function, I's and O's and avoid nephrotoxins. Renal is following. s/p HD yesterday with removal 2.5L ID: Continue abx on Zosyn/Vanco monitor for signs of infections ( fever, WBC) Follow up on sputum cx. GI: On Protonix 40 mg daily. On tube feeds- Nepro with goal rate 50ml/hr per nut. recommendations. Heme: Monitor CBC. Endo: Place on insulin drip and d/c solumederol and place on Prednisone 5mg daily GI prophylaxis- on Protonix 40 mg daily DVT prophylaxis- on SCD and heparin subcu Level 3
[2018-04-19 07:30] LABS: Baso % (Auto) 0.2 % (0.0-2.0); Eos % (Auto) 0.1 % (0.0-4.0); Hematocrit 28.9 % (39.0-51.0); Hemoglobin 9.6 gm/dL (13.0-17.0); Lymph # (Auto) 0.5 th/mm3 (1.0-4.8); Lymph % (Auto) 4.4 % (9.0-44.0); Mean Corpuscular HGB Conc 33.4 % (32.0-36.0); Mean Corpuscular Hemoglobin 28.8 pg (27.0-34.0); Mean Corpuscular Volume 86.4 fL (80.0-100.0); Neut # (Auto) 9.4 th/mm3 (1.8-7.7); Neut % (Auto) 86.3 % (16.0-70.0); Platelet Count 151 th/mm3 (150-450); Red Blood Count 3.34 mil/mm3 (4.50-5.90); Red Cell Distribution Width 17.2 % (11.6-17.2); White Blood Count 10.9 th/mm3 (4.0-11.0)
--- NOTE | 2018-04-19 08:07 | XR ---
EXAM DATE: 04/19/2018 8:00 AM EST AGE/SEX: 57 years / Male INDICATIONS: Short of breath, ventilator dependent respiratory failure. CLINICAL DATA: This is the patient's subsequent encounter. Patient reports that signs and symptoms h ave been present for 2 weeks and indicates a pain score of Nonresponsive. MEDICAL/SURGICAL HISTORY: Diabetes. Cardiovascular disease. cardiopulmonary arrest, cardiomega ly CABG. COMPARISON: [facility], CHEST 1V SINGLE AP, 04/16/2018. . FINDINGS: There is evidence for prior median sternotomy. ET tube is present with tip overlapping approximately 2 above the taylor. Moderate cardiomegaly seen. Focal consolidation is not seen, however there is haziness overlapping the hemidiaphragms medially b ilaterally probably due to overlap of soft tissues. Mild case of pulmonary edema and a small right pl eural effusion are difficult to exclude. NG tube is present with tip not seen. CONCLUSION: Slight pulmonary edema and right pleural effusion are difficult to exclude. Electronically signed by: Felipe Castellanos MD Board Certified Radiologist 04/19/2018 8:06 AM EST
[2018-04-19 08:14] LABS: Calcium 6.8 mg/dL (8.5-10.1); Carbon Dioxide 25.3 meq/L (21.0-32.0); Magnesium 2.7 mg/dL (1.5-2.5); Potassium 4.2 meq/L (3.5-5.1)
[2018-04-19 08:41] LABS: Phosphorus 6.8 mg/dL (2.5-4.9); Total Protein 6.4 g/dL (6.4-8.2)
[2018-04-19] MEDS: Senna/Docusate Sodium 8.6/50 MG Tablet PO SCH ×2 (09:33→20:17)
[2018-04-19] MEDS: Calcium Acetate 667 MG Capsule PO SCH ×3 (09:34→17:25)
[2018-04-19] MEDS: Pantoprazole Inj 40 MG Vial IV.PUSH SCH (09:37)
[2018-04-19] MEDS: predniSONE 5 MG Tablet PO SCH (09:44)
--- NOTE | 2018-04-19 12:51 | P.PNNP ---
Subjective Interval history: Patient was seen, was alert today and responding to questions. Patient was orally intubated and mechanically ventilated on 40% FiO2. Per nurse, possible extubation today. Patient off sedation. Patient dialyzed yesterday, 2.5 L removed. <Leeann Mcgarry - Last Filed: 04/19/18 12:43> Physical Exam Vital signs: Vital Signs 04/18/18 14:30 04/18/18 14:45 04/18/18 15:00 Temperature Pulse Rate 83 80 Respiratory Rate 21 15 Blood Pressure 131/61 141/59 H 129/60 Pulse Oximetry 92 L 92 L 04/18/18 15:06 04/18/18 15:15 04/18/18 15:30 Temperature Pulse Rate 81 82 81 Respiratory Rate 15 20 17 Blood Pressure 129/59 L 122/56 L Pulse Oximetry 92 L 91 L 91 L 04/18/18 15:45 04/18/18 16:00 04/18/18 16:15 Temperature 98.9 F Pulse Rate 82 83 83 Respiratory Rate 18 19 19 Blood Pressure 124/58 L 126/58 L 119/58 L Pulse Oximetry 91 L 91 L 93 L 04/18/18 16:30 04/18/18 16:45 04/18/18 17:00 Temperature Pulse Rate 83 84 89 Respiratory Rate 20 18 22 Blood Pressure 104/51 L 110/56 L 110/70 Pulse Oximetry 92 L 91 L 93 L 04/18/18 17:15 04/18/18 17:30 04/18/18 17:46 Temperature Pulse Rate 87 91 H 91 H Respiratory Rate 24 22 22 Blood Pressure 117/56 L 119/66 136/62 Pulse Oximetry 91 L 87 L 91 L 04/18/18 18:00 04/18/18 18:01 04/18/18 18:15 Temperature Pulse Rate 90 87 85 Respiratory Rate 34 H 22 16 Blood Pressure 103/41 L 109/54 L Pulse Oximetry 85 L 92 L 92 L 04/18/18 18:36 04/18/18 19:00 04/18/18 19:01 Temperature Pulse Rate 80 82 82 Respiratory Rate 18 18 18 Blood Pressure 119/51 L 129/59 L Pulse Oximetry 93 L 93 L 93 L 04/18/18 19:16 04/18/18 19:31 04/18/18 19:49 Temperature Pulse Rate 80 82 82 Respiratory Rate 18 19 20 Blood Pressure 101/49 L 145/65 H 108/51 L Pulse Oximetry 93 L 93 L 93 L 04/18/18 20:00 04/18/18 20:01 04/18/18 20:02 Temperature 99.2 F Pulse Rate 86 82 82 Respiratory Rate 25 H 23 22 Blood Pressure 127/52 L Pulse Oximetry 96 96 95 04/18/18 20:37 04/18/18 21:00 04/18/18 21:30 Temperature Pulse Rate 82 81 81 Respiratory Rate 18 18 17 Blood Pressure 113/74 115/56 L 121/58 L Pulse Oximetry 93 L 93 L 93 L 04/18/18 22:00 04/18/18 22:30 04/18/18 23:00 Temperature Pulse Rate 79 82 82 Respiratory Rate 18 18 18 Blood Pressure 105/56 L 120/60 121/57 L Pulse Oximetry 93 L 93 L 93 L 04/18/18 23:30 04/19/18 00:00 04/19/18 00:30 Temperature 99.8 F H Pulse Rate 80 85 80 Respiratory Rate 18 19 15 Blood Pressure 116/55 L 129/61 128/61 Pulse Oximetry 93 L 93 L 92 L 04/19/18 00:49 04/19/18 01:00 04/19/18 01:30 Temperature Pulse Rate 79 79 75 Respiratory Rate 22 21 18 Blood Pressure 118/58 L 113/56 L Pulse Oximetry 95 92 L 92 L 04/19/18 02:00 04/19/18 02:30 04/19/18 03:00 Temperature Pulse Rate 72 71 73 Respiratory Rate 18 18 18 Blood Pressure 114/54 L 115/55 L 117/56 L Pulse Oximetry 91 L 92 L 92 L 04/19/18 03:30 04/19/18 04:00 04/19/18 04:05 Temperature 98.4 F Pulse Rate 75 77 76 Respiratory Rate 20 18 19 Blood Pressure 120/58 L 106/48 L Pulse Oximetry 92 L 95 97 04/19/18 04:52 04/19/18 04:59 04/19/18 05:00 Temperature Pulse Rate 78 76 77 Respiratory Rate 18 18 19 Blood Pressure 109/53 L 127/58 L Pulse Oximetry 96 95 95 04/19/18 05:30 04/19/18 05:36 04/19/18 06:00 Temperature Pulse Rate 77 75 75 Respiratory Rate 18 18 18 Blood Pressure 121/60 116/56 L Pulse Oximetry 96 95 95 04/19/18 06:30 04/19/18 07:00 04/19/18 07:30 Temperature Pulse Rate 72 75 81 Respiratory Rate 21 18 18 Blood Pressure 111/55 L 130/63 122/58 L Pulse Oximetry 95 94 L 93 L 04/19/18 08:00 04/19/18 08:01 04/19/18 08:29 Temperature 98.6 F Pulse Rate 71 70 71 Respiratory Rate 24 19 7 L Blood Pressure 113/51 L Pulse Oximetry 94 L 94 L 95 04/19/18 08:30 04/19/18 09:00 04/19/18 09:30 Temperature Pulse Rate 79 79 79 Respiratory Rate 10 L 10 L 12 Blood Pressure 135/64 137/62 131/60 Pulse Oximetry 95 94 L 95 04/19/18 10:00 04/19/18 10:07 04/19/18 11:00 Temperature Pulse Rate 78 82 Respiratory Rate 11 L 12 Blood Pressure 119/57 L Pulse Oximetry 95 96 04/19/18 11:13 Temperature Pulse Rate 79 Respiratory Rate 13 Blood Pressure Pulse Oximetry Intake & Output 04/18/18 04/19/18 04/19/18 18:59 06:59 18:59 Intake Total 929 / 929 1065 / 1065 100 / 100 Output Total 5000 / 5000 Balance -4071 / -4071 1065 / 1065 100 / 100 Weight 121.1 kg Intake: IV 350 / 350 550 / 550 100 / 100 Diprivan 1000 mg/100 ml Inj 1, 300 / 300 200 / 200 50 / 50 000 mg In 100 ml @ 5 MCG/KG/MIN 3.708 mls/hr IV.CONT TITRATE PRN Rx#:[id number] Zosyn 2.25 GM Premix 2.25 gm In 50 / 50 100 / 100 50 / 50 50 ml @ 100 mls/hr IV.SIG Q8H DOMENICO Rx#:[id number] Vancomycin Inj 1,000 MG In NS 250 / 250 Inj 250 ML @ 250 mls/hr IV.SIG WITH DIALYSIS DOMENICO Rx#:[id number] Oral 0 / 0 Tube Feeding 489 / 489 415 / 415 Tube Irrigant 90 / 90 100 / 100 Output: Urine 0 / 0 Hemodialysis Amount 5000 / 5000 Other: # Voids 0 Date of Last Bowel Movement 02/04/19 02/04/19 02/04/19 # Bowel Movements 1 Narrative: GENERAL: NAD. SKIN: Warm and dry. HEAD: Normocephalic. EYES: No injection or drainage. NECK: Supple, trachea midline. No JVD or lymphadenopathy. CARDIOVASCULAR: Regular rate and rhythm without murmurs, gallops, or rubs. RESPIRATORY: orally intubated and mechanically ventilated on 40% FiO2. GASTROINTESTINAL: Abdomen soft, non-tender. MUSCULOSKELETAL: No cyanosis, bilateral lower extremity edema, AVF left arm. Neuro: Alert <Leeann Mcgarry - Last Filed: 04/19/18 12:43> Vital signs: Vital Signs 04/18/18 14:45 04/18/18 15:00 04/18/18 15:06 Temperature Pulse Rate 83 80 81 Respiratory Rate 21 15 15 Blood Pressure 141/59 H 129/60 Pulse Oximetry 92 L 92 L 92 L 04/18/18 15:15 04/18/18 15:30 04/18/18 15:45 Temperature Pulse Rate 82 81 82 Respiratory Rate 20 17 18 Blood Pressure 129/59 L 122/56 L 124/58 L Pulse Oximetry 91 L 91 L 91 L 04/18/18 16:00 04/18/18 16:15 04/18/18 16:30 Temperature 98.9 F Pulse Rate 83 83 83 Respiratory Rate 19 19 20 Blood Pressure 126/58 L 119/58 L 104/51 L Pulse Oximetry 91 L 93 L 92 L 04/18/18 16:45 04/18/18 17:00 04/18/18 17:15 Temperature Pulse Rate 84 89 87 Respiratory Rate 18 22 24 Blood Pressure 110/56 L 110/70 117/56 L Pulse Oximetry 91 L 93 L 91 L 04/18/18 17:30 04/18/18 17:46 04/18/18 18:00 Temperature Pulse Rate 91 H 91 H 90 Respiratory Rate 22 22 34 H Blood Pressure 119/66 136/62 Pulse Oximetry 87 L 91 L 85 L 04/18/18 18:01 04/18/18 18:15 04/18/18 18:36 Temperature Pulse Rate 87 85 80 Respiratory Rate 22 16 18 Blood Pressure 103/41 L 109/54 L 119/51 L Pulse Oximetry 92 L 92 L 93 L 04/18/18 19:00 04/18/18 19:01 04/18/18 19:16 Temperature Pulse Rate 82 82 80 Respiratory Rate 18 18 18 Blood Pressure 129/59 L 101/49 L Pulse Oximetry 93 L 93 L 93 L 04/18/18 19:31 04/18/18 19:49 04/18/18 20:00 Temperature Pulse Rate 82 82 86 Respiratory Rate 19 20 25 H Blood Pressure 145/65 H 108/51 L Pulse Oximetry 93 L 93 L 96 04/18/18 20:01 04/18/18 20:02 04/18/18 20:37 Temperature 99.2 F Pulse Rate 82 82 82 Respiratory Rate 23 22 18 Blood Pressure 127/52 L 113/74 Pulse Oximetry 96 95 93 L 04/18/18 21:00 04/18/18 21:30 04/18/18 22:00 Temperature Pulse Rate 81 81 79 Respiratory Rate 18 17 18 Blood Pressure 115/56 L 121/58 L 105/56 L Pulse Oximetry 93 L 93 L 93 L 04/18/18 22:30 04/18/18 23:00 04/18/18 23:30 Temperature Pulse Rate 82 82 80 Respiratory Rate 18 18 18 Blood Pressure 120/60 121/57 L 116/55 L Pulse Oximetry 93 L 93 L 93 L 04/19/18 00:00 04/19/18 00:30 04/19/18 00:49 Temperature 99.8 F H Pulse Rate 85 80 79 Respiratory Rate 19 15 22 Blood Pressure 129/61 128/61 Pulse Oximetry 93 L 92 L 95 04/19/18 01:00 04/19/18 01:30 04/19/18 02:00 Temperature Pulse Rate 79 75 72 Respiratory Rate 21 18 18 Blood Pressure 118/58 L 113/56 L 114/54 L Pulse Oximetry 92 L 92 L 91 L 04/19/18 02:30 04/19/18 03:00 04/19/18 03:30 Temperature Pulse Rate 71 73 75 Respiratory Rate 18 18 20 Blood Pressure 115/55 L 117/56 L 120/58 L Pulse Oximetry 92 L 92 L 92 L 04/19/18 04:00 04/19/18 04:05 04/19/18 04:52 Temperature 98.4 F Pulse Rate 77 76 78 Respiratory Rate 18 19 18 Blood Pressure 106/48 L 109/53 L Pulse Oximetry 95 97 96 04/19/18 04:59 02/05/19 05:00 04/19/18 05:30 Temperature Pulse Rate 76 77 77 Respiratory Rate 18 19 18 Blood Pressure 127/58 L 121/60 Pulse Oximetry 95 95 96 04/19/18 05:36 04/19/18 06:00 04/19/18 06:30 Temperature Pulse Rate 75 75 72 Respiratory Rate 18 18 21 Blood Pressure 116/56 L 111/55 L Pulse Oximetry 95 95 95 04/19/18 07:00 04/19/18 07:30 04/19/18 08:00 Temperature 98.6 F Pulse Rate 75 81 71 Respiratory Rate 18 18 24 Blood Pressure 130/63 122/58 L Pulse Oximetry 94 L 93 L 94 L 04/19/18 08:01 04/19/18 08:29 04/19/18 08:30 Temperature Pulse Rate 70 71 79 Respiratory Rate 19 7 L 10 L Blood Pressure 113/51 L 135/64 Pulse Oximetry 94 L 95 95 04/19/18 09:00 04/19/18 09:30 04/19/18 10:00 Temperature Pulse Rate 79 79 78 Respiratory Rate 10 L 12 11 L Blood Pressure 137/62 131/60 119/57 L Pulse Oximetry 94 L 95 95 04/19/18 10:07 04/19/18 10:30 04/19/18 11:00 Temperature Pulse Rate 78 82 Respiratory Rate 12 14 18 Blood Pressure 125/60 141/65 H Pulse Oximetry 96 95 95 04/19/18 11:13 04/19/18 11:31 04/19/18 12:00 Temperature Pulse Rate 79 80 80 Respiratory Rate 13 12 15 Blood Pressure 124/57 L 132/58 L Pulse Oximetry 93 L 93 L 04/19/18 12:30 04/19/18 13:00 04/19/18 13:19 Temperature Pulse Rate 80 85 Respiratory Rate 13 17 14 Blood Pressure 143/65 H 150/67 H Pulse Oximetry 92 L 93 L 95 04/19/18 13:30 Temperature Pulse Rate 80 Respiratory Rate 15 Blood Pressure 129/57 L Pulse Oximetry 93 L Intake & Output 04/18/18 04/19/18 04/19/18 18:59 06:59 18:59 Intake Total 929 / 929 1065 / 1065 200 / 200 Output Total 5000 / 5000 Balance -4071 / -4071 1065 / 1065 200 / 200 Weight 121.1 kg Intake: IV 350 / 350 550 / 550 200 / 200 NovoLIN R (IV Infusion) 100 100 / 100 UNIT In NS Inj 99 ML @ Per Protocol IV.CONT TITRATE PRN Rx #:[id number] Diprivan 1000 mg/100 ml Inj 1, 300 / 300 200 / 200 50 / 50 000 mg In 100 ml @ 5 MCG/KG/MIN 3.708 mls/hr IV.CONT TITRATE PRN Rx#:[id number] Zosyn 2.25 GM Premix 2.25 gm In 50 / 50 100 / 100 50 / 50 50 ml @ 100 mls/hr IV.SIG Q8H [facility] Rx#:[id number] Vancomycin Inj 1,000 MG In NS 250 / 250 Inj 250 ML @ 250 mls/hr IV.SIG WITH DIALYSIS [facility] Rx#:[id number] Oral 0 / 0 Tube Feeding 489 / 489 415 / 415 Tube Irrigant 90 / 90 100 / 100 Output: Urine 0 / 0 Hemodialysis Amount 5000 / 5000 Other: # Voids 0 Date of Last Bowel Movement 04/18/18 04/18/18 04/18/18 # Bowel Movements 1 <Tramaine Dixon - Last Filed: 04/19/18 14:32> Assessment and Plan - Assessment (1) End stage renal disease Code(s): N18.6 - End stage renal disease Status: Acute Plan: Pateint with ESRD, on Home HD. Patient dialyzed yesterday, 2.5 L removed. Avoid blood draws or BP measurements in left arm due to AVF. Avoid nephrotoxic agents. (2) Hypertension Code(s): I10 - Essential (primary) hypertension Status: Acute Qualifiers: Hypertension type: essential hypertension Qualified Code(s): I10 - Essential (primary) hypertension Plan: Blood pressure currently within parameters. Continue to monitor. 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 Hyperglycemia noted. Patient on insulin drip. Management per internal medicine (4) Cardiopulmonary arrest with successful resuscitation Code(s): I46.9 - Cardiac arrest, cause unspecified Status: Acute Plan: Cardiology consulted. Per note review, cardiology has signed off today and plan a cardiac catheterization when patient is extubated and ready for procedure from a respiratory standpoint. Possible extubation today. (5) Metabolic bone disease Code(s): E88.9 - Metabolic disorder, unspecified; M90.80 - Osteopathy in diseases classified elsewhere, unspecified site Status: Acute Plan: Sensipar has been held for now, PTH level pending. Calcium level has improved today. Phosphorus level is 6.8, has improved. Patient is on PhosLo. 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 Agree with above assessment and plan. <Tramaine Dixon - Last Filed: 04/19/18 14:32>
[2018-04-19] MEDS: Insulin Regular (For Infusion) 100 UNIT in Sodium Chlor 0.9% Inj 99 ML IV.CONT PRN (13:11)
[2018-04-19 15:17] LABS: ABG Base Excess 0.1 mmol/L (-2-2); ABG PCO2 43 mmHg (38-42); ABG PO2 88 mmHG (61-120)
--- NOTE | 2018-04-19 20:54 | MB ---
cc: Abby Ramirez MD DATE: 04/19/2018 REASON FOR CONSULTATION: Respiratory failure and pulmonary management. HISTORY OF PRESENT ILLNESS: This is a 57-year-old obese white male with a history of multiple medical problems, including end-stage renal disease on hemodialysis, history of renal transplant in 2004, hypertension, diabetes mellitus, coronary artery disease and coronary artery bypass grafting in 2003. He was getting a colonoscopy done at which time he went into asystole. He received chest compressions and epinephrine and was intubated, then transferred to the ER. He had been extubated, but did have some chest pain and subsequently was admitted to the intensive care unit. The patient then developed respiratory distress on 04/15/2018, and was tachypneic in spite of being on oxygen via nasal cannula. In spite of having hemodialysis and removal of almost 3 liters of fluid, he had increasing infiltrates in the left lung and had to be intubated for recurrent respiratory failure. He was then placed on ventilator support and sedated with Diprivan. Initial FiO2 was over 60%, but now he has been weaned down to 40% FiO2. He is awake and responds to commands and questions, but on ventilator support with an FiO2 of 40% and PEEP of 5. Chest x-ray still shows evidence of pulmonary congestion and basilar infiltrates, more on the left. PAST MEDICAL HISTORY: The patient's past history has included hypertension, diabetes mellitus type 2, history of gastroesophageal reflux and end-stage renal disease and coronary artery disease. PAST SURGICAL HISTORY: Includes previous renal transplant, and history of CABG x 3 in 2003, and history of appendectomy and cardiac catheterization with PTCA. He has had an exploratory laparotomy in the past. HABITS: The patient smoked 1 pack per day for over 20 years. No alcohol use. ALLERGIES: NONE LISTED. MEDICATIONS: Medication list was reviewed from the chart. FAMILY HISTORY: Noncontributory. REVIEW OF SYSTEMS: The patient is unable to provide any details. PHYSICAL EXAMINATION: GENERAL: This obese, middle-aged, white male who is intubated responsive, assisting the ventilator. VITAL SIGNS: Blood pressure 130/70, pulse is 74, respirations 20, temperature 97.6. HEENT: Head is normocephalic. Pupils were reactive. Sclerae are clear. He has no inflammation. Throat was injected with mild secretions. CHEST: Equal movements with coarse wheezes throughout both lung mendoza with occasional basal crackles. HEART: The heart sounds are irregular S1 and S2 with no murmur. No S3. ABDOMEN: Obese, protuberant, without masses. No organomegaly or tenderness. Bowel sounds are active. EXTREMITIES: Decreased peripheral pulses with minimal edema and no calf tenderness. NEUROLOGIC: The patient does move all his extremities well with 1+ reflexes. Babinski Negative. SKIN: Dry and cool. IMPRESSION: 1. Acute hypoxemic respiratory failure. 2. Pulmonary edema. 3. History of cardiopulmonary arrest. 4. End-stage renal disease, on hemodialysis. 5. History of kidney transplant. 6. Diabetes mellitus. 7. Hypertension. 8. Pneumonia, probable aspiration. PLAN: The patient will be weaned down on ventilator support to a rate of 16, FiO2 of 40%. Nebulized DuoNeb solution added 6 hours and he will be tried on CPAP in the a.m. Antibiotic therapy continued as ordered, sedation will be turned down in the a.m. The patient will be placed on tube feedings at 40 mL per hour. If his clinical condition is stabilized and his respiratory parameters are adequate, attempts will be made to extubate him over the next 24-48 hours. Thank you, Dr. Cao, for this consultation. VEulalio Ramirez MD VJD/aida , 08:04 PM , 08:18 PM
[2018-04-20] MEDS: Heparin - SQ 10,000 UNITS/ML Vial SQ SCH ×2 (01:10→12:40)
[2018-04-20] MEDS: Piperacil/Tazo 2.25 GM Premix 2.25 GM/50 ML PIGGYBACK IV.SIG SCH ×3 (02:01→17:13)
[2018-04-20] MEDS: Propofol 1000 mg/100 ml Inj 1,000 MG/100 ML BOTTLE IV.CONT PRN ×5 (02:19→20:46)
[2018-04-20 04:46] LABS: ABG PCO2 41 mmHg (38-42); ABG PO2 81 mmHG (61-120)
[2018-04-20 05:32] LABS: Baso # (Auto) 0.1 th/mm3 (0.0-0.2); Baso % (Auto) 0.6 % (0.0-2.0); Eos # (Auto) 0.2 th/mm3 (0.0-0.4); Eos % (Auto) 1.4 % (0.0-4.0); Hematocrit 31.5 % (39.0-51.0); Hemoglobin 10.1 gm/dL (13.0-17.0); Lymph # (Auto) 0.9 th/mm3 (1.0-4.8); Lymph % (Auto) 6.8 % (9.0-44.0); Mean Corpuscular Hemoglobin 27.4 pg (27.0-34.0); Mean Corpuscular Volume 85.7 fL (80.0-100.0); Mean Platelet Volume 8.8 fL (7.0-11.0); Mono # (Auto) 1.2 th/mm3 (0.0-0.9); Mono % (Auto) 9.2 % (0.0-8.0); Neut # (Auto) 10.4 th/mm3 (1.8-7.7); Platelet Count 158 th/mm3 (150-450); Red Blood Count 3.67 mil/mm3 (4.50-5.90); Red Cell Distribution Width 17.1 % (11.6-17.2); White Blood Count 12.7 th/mm3 (4.0-11.0)
[2018-04-20 06:15] LABS: Albumin 2.9 g/dL (3.4-5.0); Calcium 6.9 mg/dL (8.5-10.1); Carbon Dioxide 25.4 meq/L (21.0-32.0); Magnesium 2.8 mg/dL (1.5-2.5); Potassium 4.2 meq/L (3.5-5.1); Total Protein 6.4 g/dL (6.4-8.2)
--- NOTE | 2018-04-20 07:36 | P.PNCC ---
Subjective Subjective Remarks/Hospital Course: The patient is a 57-year-old male with multiple medical comorbidities which include end-stage renal disease, on hemodialysis, being followed by Dr. Vogel, status post renal transplant in 2004, hypertension, diabetes mellitus, coronary artery disease with previous coronary artery bypass grafting in 2003. The patient was getting his colonoscopy and while being sedated, he had an asystolic episode. He received 2 rounds of epinephrine and chest compressions performed. He was initially intubated, and on arrival to the ER, he was extubated. The patient was awake, alert, and oriented. He does not recall anything that happened. He reports mild chest discomfort on the right side of his chest wall due to chest compressions. No other complaints were reported. He denies any shortness of breath, orthopnea, PND, or edema of lower extremities. Also, he denies any cough, wheezing or constitutional symptoms 2 Reconsult for resp distress. Patient reports SOB on 4L oxygen, tachycardic and tachypneic. s/p HD earlier today with removal 2.8L. CXR from yesterday increasing density left lung base. Afebrile. 2 Patient was intubated yesterday sedated with Diprivan. On PRVC with PEEP:5 and FIO2 50%. Afebrile. 04/17 Patient remains intubated and sedated. Afebrile. 04/18 Patient remains sedated and intubated. For HD today. Tolerated CPAP for several hrs yesterday. 04/19 Patient remains sedated and intubated. s/p HD yesterday with removal 2.5L. Afebrile. On Insulin drip 3u/hr 04/20 Patient is on low dose Diprivan infusion (10mics) awake, on insulin drip 2u/ hr. Afebrile. Objective Vital Signs / I&O: Vital Signs 04/19/18 08:00 04/19/18 08:01 04/19/18 08:29 Temperature 98.6 F Pulse Rate 71 70 71 Respiratory Rate 24 19 7 L Blood Pressure 113/51 L Pulse Oximetry 94 L 94 L 95 04/19/18 08:30 04/19/18 09:00 04/19/18 09:30 Temperature Pulse Rate 79 79 79 Respiratory Rate 10 L 10 L 12 Blood Pressure 135/64 137/62 131/60 Pulse Oximetry 95 94 L 95 04/19/18 10:00 04/19/18 10:07 04/19/18 10:30 Temperature Pulse Rate 78 78 Respiratory Rate 11 L 12 14 Blood Pressure 119/57 L 125/60 Pulse Oximetry 95 96 95 04/19/18 11:00 04/19/18 11:13 04/19/18 11:31 Temperature Pulse Rate 82 79 80 Respiratory Rate 18 13 12 Blood Pressure 141/65 H 124/57 L Pulse Oximetry 95 93 L 04/19/18 12:00 04/19/18 12:30 04/19/18 13:00 Temperature Pulse Rate 80 80 85 Respiratory Rate 15 13 17 Blood Pressure 132/58 L 143/65 H 150/67 H Pulse Oximetry 93 L 92 L 93 L 04/19/18 13:19 04/19/18 13:30 04/19/18 14:00 Temperature Pulse Rate 80 80 Respiratory Rate 14 15 14 Blood Pressure 129/57 L 149/68 H Pulse Oximetry 95 93 L 92 L 04/19/18 14:30 04/19/18 15:00 04/19/18 15:30 Temperature Pulse Rate 80 79 82 Respiratory Rate 14 14 15 Blood Pressure 145/64 H 140/63 141/65 H Pulse Oximetry 92 L 91 L 91 L 04/19/18 15:40 04/19/18 15:57 04/19/18 16:00 Temperature Pulse Rate 78 73 Respiratory Rate 16 18 18 Blood Pressure 125/59 L Pulse Oximetry 96 96 04/19/18 16:30 04/19/18 17:00 04/19/18 17:30 Temperature Pulse Rate 72 73 73 Respiratory Rate 18 18 18 Blood Pressure 119/58 L 121/59 L 124/55 L Pulse Oximetry 95 95 94 L 04/19/18 18:00 04/19/18 18:30 04/19/18 19:00 Temperature Pulse Rate 80 86 80 Respiratory Rate 19 28 H 18 Blood Pressure 145/64 H 145/62 H Pulse Oximetry 93 L 96 94 L 04/19/18 19:01 04/19/18 19:31 04/19/18 19:56 Temperature Pulse Rate 79 81 Respiratory Rate 18 18 19 Blood Pressure 126/58 L 122/60 Pulse Oximetry 94 L 94 L 94 L 04/19/18 20:00 04/19/18 20:30 04/19/18 21:00 Temperature 98.8 F Pulse Rate 73 72 77 Respiratory Rate 18 18 18 Blood Pressure 114/56 L 117/56 L 111/54 L Pulse Oximetry 94 L 94 L 94 L 04/19/18 21:30 04/19/18 22:00 04/19/18 22:30 Temperature Pulse Rate 80 80 79 Respiratory Rate 18 18 22 Blood Pressure 116/63 118/84 118/72 Pulse Oximetry 94 L 93 L 93 L 04/19/18 23:00 04/19/18 23:33 04/20/18 00:00 Temperature 98.9 F Pulse Rate 79 79 80 Respiratory Rate 27 H 19 16 Blood Pressure 116/58 L 120/53 L Pulse Oximetry 90 L 95 92 L 04/20/18 00:21 04/20/18 00:30 04/20/18 00:35 Temperature Pulse Rate 84 80 Respiratory Rate 20 27 H 19 Blood Pressure 113/54 L Pulse Oximetry 93 L 96 04/20/18 01:00 04/20/18 01:01 04/20/18 01:03 Temperature Pulse Rate 73 73 73 Respiratory Rate 18 18 18 Blood Pressure 92/40 L 100/47 L Pulse Oximetry 94 L 94 L 94 L 04/20/18 01:09 04/20/18 01:30 04/20/18 02:00 Temperature Pulse Rate 79 73 75 Respiratory Rate 19 18 18 Blood Pressure 108/47 L 113/56 L Pulse Oximetry 92 L 92 L 92 L 04/20/18 02:01 04/20/18 02:30 04/20/18 03:00 Temperature Pulse Rate 72 75 76 Respiratory Rate 18 18 17 Blood Pressure 110/51 L 112/54 L Pulse Oximetry 92 L 93 L 100 04/20/18 03:01 04/20/18 03:30 04/20/18 04:00 Temperature 98.0 F Pulse Rate 76 79 76 Respiratory Rate 16 16 18 Blood Pressure 116/50 L 122/58 L Pulse Oximetry 98 94 L 94 L 04/20/18 04:01 04/20/18 04:26 04/20/18 04:30 Temperature Pulse Rate 75 79 Respiratory Rate 19 18 18 Blood Pressure 125/53 L 122/66 Pulse Oximetry 94 L 94 L 94 L 04/20/18 05:00 04/20/18 06:00 Temperature Pulse Rate 81 82 Respiratory Rate Blood Pressure Pulse Oximetry Intake & Output 04/19/18 04/20/18 04/20/18 18:59 06:59 18:59 Intake Total 478 / 478 470 / 470 Output Total 0 / 0 Balance 478 / 478 470 / 470 Weight 121.2 kg Intake: IV 250 / 250 150 / 150 NovoLIN R (IV Infusion) 100 100 / 100 UNIT In NS Inj 99 ML @ Per Protocol IV.CONT TITRATE PRN Rx #:[id number] Diprivan 1000 mg/100 ml Inj 1, 50 / 50 100 / 100 000 mg In 100 ml @ 5 MCG/KG/MIN 3.708 mls/hr IV.CONT TITRATE PRN Rx#:[id number] Zosyn 2.25 GM Premix 2.25 gm In 100 / 100 50 / 50 50 ml @ 100 mls/hr IV.SIG Q8H DOMENICO Rx#:[id number] Tube Feeding 108 / 108 220 / 220 Tube Irrigant 120 / 120 100 / 100 Output: Urine 0 / 0 Other: Date of Last Bowel Movement 04/18/18 04/20/18 # Bowel Movements 0 3 Result Diagrams: 04/20/18 04:43 04/20/18 04:43 Other Results: Laboratory Results - last 12 hr 04/18/18 04/19/18 04/19/18 06:50 20:14 21:00 WBC RBC Hgb Hct MCV MCH MCHC RDW Plt Count MPV Neut % (Auto) Lymph % (Auto) [place] % (Auto) Eos % (Auto) Baso % (Auto) Neut # (Auto) Lymph # (Auto) [place] # (Auto) Eos # (Auto) Baso # (Auto) WBC Differential Differential Comment Puncture Site Patient Temperature O2 Saturation ABG pH ABG pCO2 ABG pO2 ABG HCO3 ABG O2 Content ABG Base Excess ABG Methemoglobin Zeferino Test Hemoglobin Carboxyhemoglobin O2 Delivery Device Vent Setting Inspired O2 Critical Value Sodium Potassium Chloride Carbon Dioxide Anion Gap BUN Creatinine Estimated GFR POC Glucose 250 H 224 H Random Glucose Calcium Calcium Adj for Albumin Magnesium Total Bilirubin AST ALT Alkaline Phosphatase Total Protein Albumin PTH Intact 1955.5 H 04/19/18 04/19/18 04/20/18 22:02 23:11 00:14 WBC RBC Hgb Hct MCV MCH MCHC RDW Plt Count MPV Neut % (Auto) Lymph % (Auto) [place] % (Auto) Eos % (Auto) Baso % (Auto) Neut # (Auto) Lymph # (Auto) [place] # (Auto) Eos # (Auto) Baso # (Auto) WBC Differential Differential Comment Puncture Site Patient Temperature O2 Saturation ABG pH ABG pCO2 ABG pO2 ABG HCO3 ABG O2 Content ABG Base Excess ABG Methemoglobin Zeferino Test Hemoglobin Carboxyhemoglobin O2 Delivery Device Vent Setting Inspired O2 Critical Value Sodium Potassium Chloride Carbon Dioxide Anion Gap BUN Creatinine Estimated GFR POC Glucose 227 H 207 H 199 H Random Glucose Calcium Calcium Adj for Albumin Magnesium Total Bilirubin AST ALT Alkaline Phosphatase Total Protein Albumin PTH Intact 04/20/18 04/20/18 04/20/18 01:08 02:02 03:15 WBC RBC Hgb Hct MCV MCH MCHC RDW Plt Count MPV Neut % (Auto) Lymph % (Auto) [place] % (Auto) Eos % (Auto) Baso % (Auto) Neut # (Auto) Lymph # (Auto) [place] # (Auto) Eos # (Auto) Baso # (Auto) WBC Differential Differential Comment Puncture Site Patient Temperature O2 Saturation ABG pH ABG pCO2 ABG pO2 ABG HCO3 ABG O2 Content ABG Base Excess ABG Methemoglobin Zeferino Test Hemoglobin Carboxyhemoglobin O2 Delivery Device Vent Setting Inspired O2 Critical Value Sodium Potassium Chloride Carbon Dioxide Anion Gap BUN Creatinine Estimated GFR POC Glucose 190 H 185 H 199 H Random Glucose Calcium Calcium Adj for Albumin Magnesium Total Bilirubin AST ALT Alkaline Phosphatase Total Protein Albumin PTH Intact 04/20/18 04/20/18 04/20/18 04:15 04:31 04:43 WBC 12.7 H RBC 3.67 L Hgb 10.1 L Hct 31.5 L MCV 85.7 MCH 27.4 MCHC 32.0 RDW 17.1 Plt Count 158 MPV 8.8 Neut % (Auto) 82.0 H Lymph % (Auto) 6.8 L [place] % (Auto) 9.2 H Eos % (Auto) 1.4 Baso % (Auto) 0.6 Neut # (Auto) 10.4 H Lymph # (Auto) 0.9 L [place] # (Auto) 1.2 H Eos # (Auto) 0.2 Baso # (Auto) 0.1 WBC Differential . Differential Comment Auto diff final Puncture Site Right radial Patient Temperature 98.6 O2 Saturation 92 ABG pH 7.39 ABG pCO2 41 ABG pO2 81 ABG HCO3 24 ABG O2 Content 12.6 ABG Base Excess 0.0 ABG Methemoglobin 1.9 Zeferino Test Present Hemoglobin 9.6 L Carboxyhemoglobin 1.2 O2 Delivery Device Ventilator Vent Setting Prvc/ac 18, vt 550 Inspired O2 40 Critical Value No Sodium Potassium Chloride Carbon Dioxide Anion Gap BUN Creatinine Estimated GFR POC Glucose 208 H Random Glucose Calcium Calcium Adj for Albumin Magnesium Total Bilirubin AST ALT Alkaline Phosphatase Total Protein Albumin PTH Intact 04/20/18 04/20/18 04/20/18 04:43 05:11 06:02 WBC RBC Hgb Hct MCV MCH MCHC RDW Plt Count MPV Neut % (Auto) Lymph % (Auto) [place] % (Auto) Eos % (Auto) Baso % (Auto) Neut # (Auto) Lymph # (Auto) [place] # (Auto) Eos # (Auto) Baso # (Auto) WBC Differential Differential Comment Puncture Site Patient Temperature O2 Saturation ABG pH ABG pCO2 ABG pO2 ABG HCO3 ABG O2 Content ABG Base Excess ABG Methemoglobin Zeferino Test Hemoglobin Carboxyhemoglobin O2 Delivery Device Vent Setting Inspired O2 Critical Value Sodium 137 Potassium 4.2 Chloride 94 L Carbon Dioxide 25.4 Anion Gap 18 H BUN 110 H Creatinine 8.82 H Estimated GFR 6 L POC Glucose 193 H 207 H Random Glucose 193 H Calcium 6.9 L* Calcium Adj for Albumin 7.8 L Magnesium 2.8 H Total Bilirubin 0.6 AST 7 L ALT 11 L Alkaline Phosphatase 130 H Total Protein 6.4 Albumin 2.9 L PTH Intact 04/20/18 07:18 WBC RBC Hgb Hct MCV MCH MCHC RDW Plt Count MPV Neut % (Auto) Lymph % (Auto) [place] % (Auto) Eos % (Auto) Baso % (Auto) Neut # (Auto) Lymph # (Auto) [place] # (Auto) Eos # (Auto) Baso # (Auto) WBC Differential Differential Comment Puncture Site Patient Temperature O2 Saturation ABG pH ABG pCO2 ABG pO2 ABG HCO3 ABG O2 Content ABG Base Excess ABG Methemoglobin Zeferino Test Hemoglobin Carboxyhemoglobin O2 Delivery Device Vent Setting Inspired O2 Critical Value Sodium Potassium Chloride Carbon Dioxide Anion Gap BUN Creatinine Estimated GFR POC Glucose 193 H Random Glucose Calcium Calcium Adj for Albumin Magnesium Total Bilirubin AST ALT Alkaline Phosphatase Total Protein Albumin PTH Intact Imaging: Chest CTA 04/12/18 00:00 CONCLUSION: 1. No CT evidence for pulmonary artery embolism as questioned. 2. Cardiomegaly with trace bilateral pleural effusions and mild airspace consolidation at the lung bases which may reflect compressive atelectasis. Differential considerations include aspiration in the appropriate clinical setting. 3. Trace perihepatic ascites fluid. Chest X-Ray 04/19/18 07:14 CONCLUSION: Slight pulmonary edema and right pleural effusion are difficult to exclude. Objective Remarks: GENERAL: Patient is 67 yo intubated SKIN: Warm and dry. HEAD: Normocephalic. EYES: No scleral icterus. No injection or drainage. NECK: Supple, trachea midline. No JVD or lymphadenopathy. CARDIOVASCULAR: Regular rate and rhythm without murmurs, gallops, or rubs. RESPIRATORY: Breath sounds equal bilaterally. Scattered wheezing and rhonchi GASTROINTESTINAL: Abdomen soft, non-tender, nondistended. MUSCULOSKELETAL: No cyanosis,+ edema. Neuro: Intubated, sedated. Assessment and Plan - Assessment and Plan Plan: 1. VDRF intubated 04/15 2. s/p post cardiopulmonary arrest, asystolic event during colonoscopy 3. ESRD, on hemodialysis. 4. Leukocytosis. 5. Anemia. 6. Hypocalcemia. 7. Hypertension. 8. Diabetes mellitus. 9. COPD 10. Previous renal transplant in 2004. 11. CAD/CABG in 2003. 12. GERD 13. SVT Plan Neuro: On Diprivan infusion for sedation. Daily sedation vacation. Monitor neuro status closely Pulm: Continue with vent support and maintain sats >92%. On PRVC RR 18, TV 550, IT:0.9, PEEP: 5, FIO2: 40% Bronchodilators, ICU vent bundle SBT daily as elda. Pulm is following- Dr. Ramirez, CV: Monitor HR and BP and maintain MAP >65 mmHg. Cards is following- Dr. Arredondo. [facility] when resp status improves Echo showed EF 50-55% On ASA, Lipitor, Imdur : Monitor renal function, I's and O's and avoid nephrotoxins. Renal is following. HD per renal ID: Continue abx on Zosyn/Vanco monitor for signs of infections ( fever, WBC) Follow up on sputum cx. GI: On Protonix 40 mg daily. On tube feeds- Nepro with goal rate 50ml/hr per nut. recommendations. Hold TF for possible extubation Heme: Monitor CBC. Endo: Transition from SSI to SSI with accuhecks, on Prednisone 5mg daily GI prophylaxis- on Protonix 40 mg daily DVT prophylaxis- on SCD and heparin subcu Level 3
[2018-04-20] MEDS: predniSONE 5 MG Tablet PO SCH (08:19)
[2018-04-20] MEDS: Calcium Acetate 667 MG Capsule PO SCH ×3 (08:19→17:13)
[2018-04-20] MEDS: Isosorbide Mononitrate 60 MG ER 24HR Tablet (Imdur) PO SCH (08:20)
[2018-04-20] MEDS: Pantoprazole Inj 40 MG Vial IV.PUSH SCH (08:20)
[2018-04-20] MEDS: Senna/Docusate Sodium 8.6/50 MG Tablet PO SCH ×2 (08:21→20:07)
[2018-04-20] MEDS: Insulin NovoLIN Regular Correctional Sugar Inj SQ SCH ×4 (08:39→20:06)
--- NOTE | 2018-04-20 09:10 | XR ---
EXAM DATE: 04/20/2018 9:06 AM EST AGE/SEX: 57 years / Male INDICATIONS: Evaluate respiratory distress CLINICAL DATA: This is the patient's subsequent encounter. Patient reports that signs and symptoms h ave been present for 3 days and indicates a pain score of Nonresponsive. MEDICAL/SURGICAL HISTORY: . Diabetes. Cardiovascular disease. Cardiopulmonary arrest, cardiomeg mikhail . CABG. COMPARISON: [facility], CHEST 1V SINGLE AP, 04/19/2018. . FINDINGS: ET tube nasogastric tube are in good position. There is significant cardiomegaly with moderate inters titial edema. Previous bypass is evident. Compared to 04/19/2018 there is a slight improvement with less interstitial edema. CONCLUSION: Minimal improvement with less interstitial edema. Electronically signed by: Trung Bang MD Board Certified Radiologist 04/20/2018 9:08 AM EST
--- NOTE | 2018-04-20 11:04 | P.PNNP ---
Subjective Interval history: Patient was seen, no distress. Patient still intubated on mechanical ventilation , 40% FiO2. Per nurse, possible extubation today. Tube feeding and insulin drip stopped today. Patient to be dialyzed today, patient gets dialysis MWF. <Leeann Mcgarry - Last Filed: 04/20/18 11:05> Physical Exam Vital signs: Vital Signs 04/19/18 11:00 04/19/18 11:13 04/19/18 11:31 Temperature Pulse Rate 82 79 80 Respiratory Rate 18 13 12 Blood Pressure 141/65 H 124/57 L Pulse Oximetry 95 93 L 04/19/18 12:00 04/19/18 12:30 04/19/18 13:00 Temperature Pulse Rate 80 80 85 Respiratory Rate 15 13 17 Blood Pressure 132/58 L 143/65 H 150/67 H Pulse Oximetry 93 L 92 L 93 L 04/19/18 13:19 04/19/18 13:30 04/19/18 14:00 Temperature Pulse Rate 80 80 Respiratory Rate 14 15 14 Blood Pressure 129/57 L 149/68 H Pulse Oximetry 95 93 L 92 L 04/19/18 14:30 04/19/18 15:00 04/19/18 15:30 Temperature Pulse Rate 80 79 82 Respiratory Rate 14 14 15 Blood Pressure 145/64 H 140/63 141/65 H Pulse Oximetry 92 L 91 L 91 L 04/19/18 15:40 04/19/18 15:57 04/19/18 16:00 Temperature Pulse Rate 78 73 Respiratory Rate 16 18 18 Blood Pressure 125/59 L Pulse Oximetry 96 96 04/19/18 16:30 04/19/18 17:00 04/19/18 17:30 Temperature Pulse Rate 72 73 73 Respiratory Rate 18 18 18 Blood Pressure 119/58 L 121/59 L 124/55 L Pulse Oximetry 95 95 94 L 04/19/18 18:00 04/19/18 18:30 04/19/18 19:00 Temperature Pulse Rate 80 86 80 Respiratory Rate 19 28 H 18 Blood Pressure 145/64 H 145/62 H Pulse Oximetry 93 L 96 94 L 04/19/18 19:01 04/19/18 19:31 04/19/18 19:56 Temperature Pulse Rate 79 81 Respiratory Rate 18 18 19 Blood Pressure 126/58 L 122/60 Pulse Oximetry 94 L 94 L 94 L 04/19/18 20:00 04/19/18 20:30 04/19/18 21:00 Temperature 98.8 F Pulse Rate 73 72 77 Respiratory Rate 18 18 18 Blood Pressure 114/56 L 117/56 L 111/54 L Pulse Oximetry 94 L 94 L 94 L 04/19/18 21:30 04/19/18 22:00 04/19/18 22:30 Temperature Pulse Rate 80 80 79 Respiratory Rate 18 18 22 Blood Pressure 116/63 118/84 118/72 Pulse Oximetry 94 L 93 L 93 L 04/19/18 23:00 04/19/18 23:33 04/20/18 00:00 Temperature 98.9 F Pulse Rate 79 79 80 Respiratory Rate 27 H 19 16 Blood Pressure 116/58 L 120/53 L Pulse Oximetry 90 L 95 92 L 04/20/18 00:21 04/20/18 00:30 04/20/18 00:35 Temperature Pulse Rate 84 80 Respiratory Rate 20 27 H 19 Blood Pressure 113/54 L Pulse Oximetry 93 L 96 04/20/18 01:00 04/20/18 01:01 04/20/18 01:03 Temperature Pulse Rate 73 73 73 Respiratory Rate 18 18 18 Blood Pressure 92/40 L 100/47 L Pulse Oximetry 94 L 94 L 94 L 04/20/18 01:09 04/20/18 01:30 04/20/18 02:00 Temperature Pulse Rate 79 73 75 Respiratory Rate 19 18 18 Blood Pressure 108/47 L 113/56 L Pulse Oximetry 92 L 92 L 92 L 04/20/18 02:01 04/20/18 02:30 04/20/18 03:00 Temperature Pulse Rate 72 75 76 Respiratory Rate 18 18 17 Blood Pressure 110/51 L 112/54 L Pulse Oximetry 92 L 93 L 100 04/20/18 03:01 04/20/18 03:30 04/20/18 04:00 Temperature 98.0 F Pulse Rate 76 79 76 Respiratory Rate 16 16 18 Blood Pressure 116/50 L 122/58 L Pulse Oximetry 98 94 L 94 L 04/20/18 04:01 04/20/18 04:26 04/20/18 04:30 Temperature Pulse Rate 75 79 Respiratory Rate 19 18 18 Blood Pressure 125/53 L 122/66 Pulse Oximetry 94 L 94 L 94 L 04/20/18 05:00 04/20/18 06:00 04/20/18 07:00 Temperature Pulse Rate 81 82 84 Respiratory Rate 24 Blood Pressure 155/70 H Pulse Oximetry 93 L 04/20/18 07:30 04/20/18 08:00 04/20/18 08:01 Temperature 99.4 F Pulse Rate 88 102 H 103 H Respiratory Rate 18 28 H 28 H Blood Pressure 147/67 H 159/70 H Pulse Oximetry 93 L 94 L 04/20/18 08:09 04/20/18 08:14 04/20/18 08:32 Temperature Pulse Rate 102 H 96 H 87 Respiratory Rate 24 21 5 L Blood Pressure Pulse Oximetry 95 93 L 92 L 04/20/18 09:00 04/20/18 09:30 04/20/18 10:00 Temperature Pulse Rate 78 90 77 Respiratory Rate 11 L 19 18 Blood Pressure 160/67 H 145/66 H 132/59 L Pulse Oximetry 94 L 92 L 93 L Intake & Output 04/19/18 04/20/18 04/20/18 18:59 06:59 18:59 Intake Total 478 / 478 470 / 470 72 / 72 Output Total 0 / 0 Balance 478 / 478 470 / 470 72 / 72 Weight 121.2 kg Intake: IV 250 / 250 150 / 150 72 / 72 NovoLIN R (IV Infusion) 100 100 / 100 39 / 39 UNIT In NS Inj 99 ML @ Per Protocol IV.CONT TITRATE PRN Rx #:[id number] Diprivan 1000 mg/100 ml Inj 1, 50 / 50 100 / 100 33 / 33 000 mg In 100 ml @ 5 MCG/KG/MIN 3.708 mls/hr IV.CONT TITRATE PRN Rx#:[id number] Zosyn 2.25 GM Premix 2.25 gm In 100 / 100 50 / 50 50 ml @ 100 mls/hr IV.SIG Q8H DOMENICO Rx#:[id number] Tube Feeding 108 / 108 220 / 220 Tube Irrigant 120 / 120 100 / 100 Output: Urine 0 / 0 Other: Date of Last Bowel Movement 04/18/18 04/20/18 04/20/18 # Bowel Movements 0 3 Narrative: GENERAL: NAD. SKIN: Warm and dry. HEAD: Normocephalic. EYES: No injection or drainage. NECK: Supple, trachea midline. No JVD or lymphadenopathy. CARDIOVASCULAR: Regular rate and rhythm without murmurs, gallops, or rubs. RESPIRATORY: orally intubated and mechanically ventilated on 40% FiO2. GASTROINTESTINAL: Abdomen soft, non-tender. MUSCULOSKELETAL: No cyanosis, bilateral lower extremity edema, AVF left arm. Neuro: Alert <ZeferinoLeeann - Last Filed: 04/20/18 11:05> Vital signs: Vital Signs 04/19/18 18:30 04/19/18 19:00 04/19/18 19:01 Temperature Pulse Rate 86 80 79 Respiratory Rate 28 H 18 18 Blood Pressure 145/62 H 126/58 L Pulse Oximetry 96 94 L 94 L 04/19/18 19:31 04/19/18 19:56 04/19/18 20:00 Temperature 98.8 F Pulse Rate 81 73 Respiratory Rate 18 19 18 Blood Pressure 122/60 114/56 L Pulse Oximetry 94 L 94 L 94 L 04/19/18 20:30 04/19/18 21:00 04/19/18 21:30 Temperature Pulse Rate 72 77 80 Respiratory Rate 18 18 18 Blood Pressure 117/56 L 111/54 L 116/63 Pulse Oximetry 94 L 94 L 94 L 04/19/18 22:00 04/19/18 22:30 04/19/18 23:00 Temperature Pulse Rate 80 79 79 Respiratory Rate 18 22 27 H Blood Pressure 118/84 118/72 Pulse Oximetry 93 L 93 L 90 L 04/19/18 23:33 04/20/18 00:00 04/20/18 00:21 Temperature 98.9 F Pulse Rate 79 80 84 Respiratory Rate 19 16 20 Blood Pressure 116/58 L 120/53 L Pulse Oximetry 95 92 L 04/20/18 00:30 04/20/18 00:35 04/20/18 01:00 Temperature Pulse Rate 80 73 Respiratory Rate 27 H 19 18 Blood Pressure 113/54 L Pulse Oximetry 93 L 96 94 L 04/20/18 01:01 04/20/18 01:03 04/20/18 01:09 Temperature Pulse Rate 73 73 79 Respiratory Rate 18 18 19 Blood Pressure 92/40 L 100/47 L 108/47 L Pulse Oximetry 94 L 94 L 92 L 04/20/18 01:30 04/20/18 02:00 04/20/18 02:01 Temperature Pulse Rate 73 75 72 Respiratory Rate 18 18 18 Blood Pressure 113/56 L 110/51 L Pulse Oximetry 92 L 92 L 92 L 04/20/18 02:30 04/20/18 03:00 04/20/18 03:01 Temperature Pulse Rate 75 76 76 Respiratory Rate 18 17 16 Blood Pressure 112/54 L 116/50 L Pulse Oximetry 93 L 100 98 04/20/18 03:30 04/20/18 04:00 04/20/18 04:01 Temperature 98.0 F Pulse Rate 79 76 75 Respiratory Rate 16 18 19 Blood Pressure 122/58 L 125/53 L Pulse Oximetry 94 L 94 L 94 L 04/20/18 04:26 04/20/18 04:30 04/20/18 05:00 Temperature Pulse Rate 79 81 Respiratory Rate 18 18 Blood Pressure 122/66 Pulse Oximetry 94 L 94 L 04/20/18 06:00 04/20/18 07:00 04/20/18 07:30 Temperature Pulse Rate 82 84 88 Respiratory Rate 24 18 Blood Pressure 155/70 H 147/67 H Pulse Oximetry 93 L 93 L 04/20/18 08:00 04/20/18 08:01 04/20/18 08:09 Temperature 99.4 F Pulse Rate 102 H 103 H 102 H Respiratory Rate 28 H 28 H 24 Blood Pressure 159/70 H Pulse Oximetry 94 L 95 04/20/18 08:14 04/20/18 08:32 04/20/18 09:00 Temperature Pulse Rate 96 H 87 78 Respiratory Rate 21 5 L 11 L Blood Pressure 160/67 H Pulse Oximetry 93 L 92 L 94 L 04/20/18 09:30 04/20/18 10:00 04/20/18 10:30 Temperature Pulse Rate 90 77 77 Respiratory Rate 19 18 18 Blood Pressure 145/66 H 132/59 L 130/61 Pulse Oximetry 92 L 93 L 93 L 04/20/18 11:00 04/20/18 11:26 04/20/18 11:30 Temperature Pulse Rate 80 78 76 Respiratory Rate 20 18 18 Blood Pressure 133/63 133/63 Pulse Oximetry 95 97 97 04/20/18 12:00 04/20/18 12:23 04/20/18 12:30 Temperature 98.4 F Pulse Rate 77 86 Respiratory Rate 18 21 Blood Pressure 134/63 124/60 Pulse Oximetry 97 96 97 04/20/18 13:00 04/20/18 13:30 04/20/18 13:45 Temperature Pulse Rate 80 76 75 Respiratory Rate 18 18 18 Blood Pressure 119/56 L 114/56 L 116/59 L Pulse Oximetry 97 97 97 04/20/18 14:00 04/20/18 14:15 04/20/18 14:30 Temperature Pulse Rate 82 84 84 Respiratory Rate 19 20 21 Blood Pressure 143/64 H 156/67 H 146/65 H Pulse Oximetry 97 97 97 04/20/18 14:45 04/20/18 15:00 04/20/18 15:15 Temperature Pulse Rate 83 83 82 Respiratory Rate 19 18 17 Blood Pressure 140/64 143/65 H 139/61 Pulse Oximetry 97 97 97 04/20/18 15:30 04/20/18 15:45 04/20/18 16:00 Temperature 99.0 F Pulse Rate 76 71 75 Respiratory Rate 19 21 20 Blood Pressure 130/61 127/57 L 140/62 Pulse Oximetry 97 97 97 04/20/18 16:03 04/20/18 16:15 04/20/18 16:30 Temperature Pulse Rate 85 83 Respiratory Rate 18 18 18 Blood Pressure 120/66 135/72 Pulse Oximetry 97 96 96 04/20/18 16:45 04/20/18 17:00 04/20/18 17:15 Temperature Pulse Rate 84 82 82 Respiratory Rate 20 17 20 Blood Pressure 140/67 139/67 138/63 Pulse Oximetry 96 96 96 04/20/18 17:30 04/20/18 17:45 04/20/18 18:00 Temperature Pulse Rate 84 83 82 Respiratory Rate 19 18 Blood Pressure 145/65 H 132/62 Pulse Oximetry 95 95 Intake & Output 04/19/18 04/20/18 04/20/18 18:59 06:59 18:59 Intake Total 478 / 478 470 / 470 1372 / 1372 Output Total 0 / 0 2500 / 2500 Balance 478 / 478 470 / 470 -1128 / -1128 Weight 121.2 kg Intake: IV 250 / 250 150 / 150 1372 / 1372 NovoLIN R (IV Infusion) 100 100 / 100 39 / 39 UNIT In NS Inj 99 ML @ Per Protocol IV.CONT TITRATE PRN Rx #:[id number] Diprivan 1000 mg/100 ml Inj 1, 50 / 50 100 / 100 233 / 233 000 mg In 100 ml @ 5 MCG/KG/MIN 3.708 mls/hr IV.CONT TITRATE PRN Rx#:[id number] Zosyn 2.25 GM Premix 2.25 gm In 100 / 100 50 / 50 100 / 100 50 ml @ 100 mls/hr IV.SIG Q8H DOMENICO Rx#:[id number] Vancomycin Inj 1,000 MG In NS 1000 / 1000 Inj 250 ML @ 250 mls/hr IV.SIG WITH DIALYSIS DOMENICO Rx#:[id number] Tube Feeding 108 / 108 220 / 220 Tube Irrigant 120 / 120 100 / 100 Output: Urine 0 / 0 0 / 0 Hemodialysis Amount 2500 / 2500 Other: Date of Last Bowel Movement 04/18/18 04/20/18 04/20/18 # Bowel Movements 0 3 # Incontinent Bowel Movements 2 <Tramaine Dixon - Last Filed: 04/20/18 18:20> Assessment and Plan - Assessment (1) End stage renal disease Code(s): N18.6 - End stage renal disease Status: Acute Plan: Pateint with ESRD, on Home HD. Patient getting dialysis MWF while hospitalized. Patient to be dialyzed today. Avoid blood draws or BP measurements in left arm due to AVF. Avoid nephrotoxic agents. (2) Hypertension Code(s): I10 - Essential (primary) hypertension Status: Acute Qualifiers: Hypertension type: essential hypertension Qualified Code(s): I10 - Essential (primary) hypertension Plan: Continue to monitor. (3) Diabetes Code(s): E11.9 - Type 2 diabetes mellitus without complications Status: Acute Qualifiers: Diabetes mellitus custodial insulin use: unspecified custodial insulin use status Plan: Monitor blood glucose. Patient off insulin drip today. Insulin coverage to maintain blood glucose levels between 140 and 180 while hospitalized. Management per internal medicine (4) Cardiopulmonary arrest with successful resuscitation Code(s): I46.9 - Cardiac arrest, cause unspecified Status: Acute Plan: Cardiology consulted and note reviewed. Per note review, cardiology has signed off and plan a cardiac catheterization when patient is extubated and ready for procedure from a respiratory standpoint. Possible extubation today. (5) Metabolic bone disease Code(s): E88.9 - Metabolic disorder, unspecified; M90.80 - Osteopathy in diseases classified elsewhere, unspecified site Status: Acute Plan: Sensipar has been held due to hypocalcemia. PTH level 1954, starting Calcitriol 0.5 mcg po daily. Corrected calcium level is 7.8. Monitor phosphorus intermittently, patient is on PhosLo. 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 Agree with above assessment and plan. <Tramaine Dixon - Last Filed: 04/20/18 18:20>
[2018-04-20] MEDS: Calcitriol 0.25 MCG Capsule PO SCH (12:42)
--- NOTE | 2018-04-20 12:53 | MP ---
cc: Abby Ramirez MD DATE OF OPERATION: 04/20/2018 PROCEDURE: Fiberoptic bronchoscopy, washings, and lavage. PREOPERATIVE DIAGNOSIS: Atelectasis both lower lobes. SURGEON: Buck Ramirez MD PROCEDURE AND FINDINGS: The patient was already intubated and on ventilator support and informed consent was obtained as to the risks of bronchoscopy including bleeding and pneumothorax and then the Olympus IT bronchoscope was used to visualize the bronchi. The patient was intubated with a size 8 endotracheal tube and has been sedated with Diprivan. The scope was then advanced via the endotracheal tube into the trachea. The trachea and taylor appeared normal. Scope was then advanced into the right mainstem and right upper lobe segmental bronchi. These bronchi demonstrated few mucoid secretions and mild endobronchitis. The secretions were suctioned out. Next, the right middle and lower lobe segmental and subsegmental bronchi were visualized. These bronchi demonstrated mucoid secretions and a few mucous plugs. These were suctioned out. Saline washings and lavage was carried out. The scope was then advanced into the left mainstem and left upper lobe segmental bronchi. These bronchi demonstrated mucoid secretions and mild endobronchitis. Saline washings were done and there were no endobronchial lesions noted here. There were mucus plugs in the left lower lobe bronchi, which were suctioned out lavaged and washings were done until clear. The procedure was then terminated. The patient tolerated the procedure well. Abby Ramirez MD VJD/ch , 12:22 PM , 12:30 PM
[2018-04-20] MEDS: Vancomycin Inj 1,000 MG in Sodium Chlor 0.9% Inj 250 ML IV.SIG SCH (15:10)
[2018-04-21] MEDS: Heparin - SQ 10,000 UNITS/ML Vial SQ SCH ×2 (00:51→13:27)
[2018-04-21] MEDS: Insulin NovoLIN Regular Correctional Sugar Inj SQ SCH ×6 (00:58→20:16)
[2018-04-21] MEDS: Propofol 1000 mg/100 ml Inj 1,000 MG/100 ML BOTTLE IV.CONT PRN ×3 (00:59→05:56)
[2018-04-21] MEDS: Piperacil/Tazo 2.25 GM Premix 2.25 GM/50 ML PIGGYBACK IV.SIG SCH ×3 (01:00→18:12)
--- NOTE | 2018-04-21 04:20 | XR ---
EXAM DATE: 04/21/2018 4:16 AM EST AGE/SEX: 57 years / Male INDICATIONS: Shortness of breath, possible pulmonary disease. CLINICAL DATA: This is the patient's subsequent encounter. Patient reports that signs and symptoms h ave been present for 4 - 6 days and indicates a pain score of Nonresponsive. MEDICAL/SURGICAL HISTORY: Diabetes. Cardiovascular disease. Myocardial infarction. CABG. COMPARISON: [facility] [place], CHEST 1V SINGLE AP, 04/20/2018. . FINDINGS: Portable AP view of the chest demonstrates an enlarged cardiac silhouette post median sternotomy and CABG. EKG lines overlie the patient. ETT and nasogastric tube remain present. There is a right basila r pleural-parenchymal opacity. Perihilar interstitial prominence is stable. No pneumothorax is identi fied. Bones demonstrate no acute finding. CONCLUSION: 1. Small right pleural effusion with associated volume loss and/or airspace consolidation is stable. Perihilar interstitial prominence is also stable. 2. Stable enlargement of the cardiac silhouette. Electronically signed by: Homero Rivera MD Board Certified Radiologist 04/21/2018 4:18 AM EST
[2018-04-21 06:28] LABS: Baso % (Auto) 0.1 % (0.0-2.0); Eos # (Auto) 0.2 th/mm3 (0.0-0.4); Eos % (Auto) 1.5 % (0.0-4.0); Hematocrit 31.2 % (39.0-51.0); Hemoglobin 10.3 gm/dL (13.0-17.0); Lymph # (Auto) 0.8 th/mm3 (1.0-4.8); Lymph % (Auto) 6.5 % (9.0-44.0); Mean Corpuscular Hemoglobin 28.4 pg (27.0-34.0); Mean Corpuscular Volume 86.2 fL (80.0-100.0); Mean Platelet Volume 9.3 fL (7.0-11.0); Mono # (Auto) 1.1 th/mm3 (0.0-0.9); Mono % (Auto) 8.6 % (0.0-8.0); Neut # (Auto) 10.6 th/mm3 (1.8-7.7); Neut % (Auto) 83.3 % (16.0-70.0); Platelet Count 168 th/mm3 (150-450); Red Blood Count 3.62 mil/mm3 (4.50-5.90); Red Cell Distribution Width 17.1 % (11.6-17.2); White Blood Count 12.8 th/mm3 (4.0-11.0)
[2018-04-21] MEDS: Isosorbide Mononitrate 60 MG ER 24HR Tablet (Imdur) PO SCH (06:53)
[2018-04-21 06:54] LABS: Albumin 2.8 g/dL (3.4-5.0); Calcium 7.3 mg/dL (8.5-10.1); Carbon Dioxide 26.1 meq/L (21.0-32.0); Magnesium 2.6 mg/dL (1.5-2.5); Potassium 3.8 meq/L (3.5-5.1)
[2018-04-21 06:58] LABS: Total Protein 6.4 g/dL (6.4-8.2)
[2018-04-21] MEDS: Calcium Acetate 667 MG Capsule PO SCH ×3 (08:01→18:12)
[2018-04-21] MEDS: predniSONE 5 MG Tablet PO SCH (08:01)
[2018-04-21] MEDS: Pantoprazole Inj 40 MG Vial IV.PUSH SCH (08:01)
[2018-04-21] MEDS: Senna/Docusate Sodium 8.6/50 MG Tablet PO SCH ×2 (08:01→20:17)
[2018-04-21] MEDS: Calcitriol 0.25 MCG Capsule PO SCH (08:02)
--- NOTE | 2018-04-21 09:55 | P.PNCC ---
Subjective Subjective Remarks/Hospital Course: The patient is a 57-year-old male with multiple medical comorbidities which include end-stage renal disease, on hemodialysis, being followed by Dr. Vogel, status post renal transplant in 2004, hypertension, diabetes mellitus, coronary artery disease with previous coronary artery bypass grafting in 2003. The patient was getting his colonoscopy and while being sedated, he had an asystolic episode. He received 2 rounds of epinephrine and chest compressions performed. He was initially intubated, and on arrival to the ER, he was extubated. The patient was awake, alert, and oriented. He does not recall anything that happened. He reports mild chest discomfort on the right side of his chest wall due to chest compressions. No other complaints were reported. He denies any shortness of breath, orthopnea, PND, or edema of lower extremities. Also, he denies any cough, wheezing or constitutional symptoms 2 Reconsult for resp distress. Patient reports SOB on 4L oxygen, tachycardic and tachypneic. s/p HD earlier today with removal 2.8L. CXR from yesterday increasing density left lung base. Afebrile. 2 Patient was intubated yesterday sedated with Diprivan. On PRVC with PEEP:5 and FIO2 50%. Afebrile. 04/17 Patient remains intubated and sedated. Afebrile. 04/18 Patient remains sedated and intubated. For HD today. Tolerated CPAP for several hrs yesterday. 04/19 Patient remains sedated and intubated. s/p HD yesterday with removal 2.5L. Afebrile. On Insulin drip 3u/hr 04/20 Patient is on low dose Diprivan infusion (10mics) awake, on insulin drip 2u/ hr. Afebrile. 04/21: Currently off all sedation wakes up easily follows commands. Off insulin infusion yesterday. FiO2 at 60% I have increased PEEP to 8 and wean the FiO2 to 50. Initiate CPAP trial for possible extubation Objective Vital Signs / I&O: Vital Signs 04/20/18 10:00 04/20/18 10:30 04/20/18 11:00 Temperature Pulse Rate 77 77 80 Respiratory Rate 18 18 20 Blood Pressure 132/59 L 130/61 133/63 Pulse Oximetry 93 L 93 L 95 04/20/18 11:26 04/20/18 11:30 04/20/18 12:00 Temperature 98.4 F Pulse Rate 78 76 77 Respiratory Rate 18 18 18 Blood Pressure 133/63 134/63 Pulse Oximetry 97 97 97 04/20/18 12:23 04/20/18 12:30 04/20/18 13:00 Temperature Pulse Rate 86 80 Respiratory Rate 21 18 Blood Pressure 124/60 119/56 L Pulse Oximetry 96 97 97 04/20/18 13:30 04/20/18 13:45 04/20/18 14:00 Temperature Pulse Rate 76 75 82 Respiratory Rate 18 18 19 Blood Pressure 114/56 L 116/59 L 143/64 H Pulse Oximetry 97 97 97 04/20/18 14:15 04/20/18 14:30 04/20/18 14:45 Temperature Pulse Rate 84 84 83 Respiratory Rate 20 21 19 Blood Pressure 156/67 H 146/65 H 140/64 Pulse Oximetry 97 97 97 04/20/18 15:00 04/20/18 15:15 04/20/18 15:30 Temperature Pulse Rate 83 82 76 Respiratory Rate 18 17 19 Blood Pressure 143/65 H 139/61 130/61 Pulse Oximetry 97 97 97 04/20/18 15:45 04/20/18 16:00 04/20/18 16:03 Temperature 99.0 F Pulse Rate 71 75 Respiratory Rate 21 20 18 Blood Pressure 127/57 L 140/62 Pulse Oximetry 97 97 97 04/20/18 16:15 04/20/18 16:30 04/20/18 16:45 Temperature Pulse Rate 85 83 84 Respiratory Rate 18 18 20 Blood Pressure 120/66 135/72 140/67 Pulse Oximetry 96 96 96 04/20/18 17:00 04/20/18 17:15 04/20/18 17:30 Temperature Pulse Rate 82 82 84 Respiratory Rate 17 20 19 Blood Pressure 139/67 138/63 145/65 H Pulse Oximetry 96 96 95 04/20/18 17:45 04/20/18 18:00 04/20/18 18:30 Temperature Pulse Rate 83 82 80 Respiratory Rate 18 19 18 Blood Pressure 132/62 130/57 L 116/58 L Pulse Oximetry 95 95 95 04/20/18 19:00 04/20/18 19:01 04/20/18 19:31 Temperature Pulse Rate 79 80 73 Respiratory Rate 18 19 18 Blood Pressure 130/61 120/56 L Pulse Oximetry 95 95 95 04/20/18 20:00 04/20/18 20:01 04/20/18 20:23 Temperature 98.7 F Pulse Rate 73 73 Respiratory Rate 18 18 18 Blood Pressure 121/55 L Pulse Oximetry 95 95 95 04/20/18 20:25 04/20/18 20:30 04/20/18 21:00 Temperature Pulse Rate 77 83 81 Respiratory Rate 18 18 18 Blood Pressure 132/61 130/60 Pulse Oximetry 95 96 04/20/18 21:30 04/20/18 22:00 04/20/18 22:30 Temperature Pulse Rate 84 85 84 Respiratory Rate 18 19 17 Blood Pressure 126/65 125/57 L 132/64 Pulse Oximetry 96 96 96 04/20/18 23:00 04/20/18 23:30 04/21/18 00:00 Temperature Pulse Rate 83 85 78 Respiratory Rate 18 19 18 Blood Pressure 129/61 128/60 Pulse Oximetry 96 96 96 04/21/18 00:01 04/21/18 00:30 04/21/18 00:37 Temperature Pulse Rate 78 79 Respiratory Rate 18 18 18 Blood Pressure 111/52 L 108/53 L Pulse Oximetry 96 96 97 04/21/18 01:00 04/21/18 01:30 04/21/18 02:00 Temperature Pulse Rate 79 81 79 Respiratory Rate 19 19 8 L Blood Pressure 104/52 L 107/53 L 109/53 L Pulse Oximetry 94 L 93 L 93 L 04/21/18 02:30 04/21/18 03:00 04/21/18 03:30 Temperature Pulse Rate 81 82 87 Respiratory Rate 10 L 18 18 Blood Pressure 109/54 L 108/53 L 111/59 L Pulse Oximetry 93 L 94 L 86 L 04/21/18 04:00 04/21/18 04:26 04/21/18 04:30 Temperature 99.0 F Pulse Rate 87 87 Respiratory Rate 18 18 13 Blood Pressure 105/51 L 114/59 L Pulse Oximetry 92 L 96 95 04/21/18 05:00 04/21/18 05:30 04/21/18 06:00 Temperature Pulse Rate 87 87 87 Respiratory Rate 18 19 9 L Blood Pressure 114/55 L 124/60 128/67 Pulse Oximetry 96 95 95 04/21/18 06:30 04/21/18 07:00 04/21/18 07:30 Temperature Pulse Rate 88 90 81 Respiratory Rate 21 22 18 Blood Pressure 132/64 146/67 H 138/60 Pulse Oximetry 95 96 96 04/21/18 07:50 04/21/18 07:51 04/21/18 08:00 Temperature 98.2 F Pulse Rate 79 78 Respiratory Rate 19 18 18 Blood Pressure 130/60 Pulse Oximetry 94 L 94 L 04/21/18 08:30 04/21/18 09:00 04/21/18 09:30 Temperature Pulse Rate 83 88 84 Respiratory Rate 18 9 L 7 L Blood Pressure 134/61 125/63 120/59 L Pulse Oximetry 93 L 93 L 93 L Intake & Output 04/20/18 04/21/18 04/21/18 18:59 06:59 18:59 Intake Total 1372 / 1372 1160 / 1160 79 / 79 Output Total 2500 / 2500 0 / 0 Balance -1128 / -1128 1160 / 1160 79 / 79 Weight 120.8 kg Intake: IV 1372 / 1372 450 / 450 NovoLIN R (IV Infusion) 100 39 / 39 UNIT In NS Inj 99 ML @ Per Protocol IV.CONT TITRATE PRN Rx #:[id number] Diprivan 1000 mg/100 ml Inj 1, 233 / 233 400 / 400 000 mg In 100 ml @ 5 MCG/KG/MIN 3.708 mls/hr IV.CONT TITRATE PRN Rx#:[id number] Zosyn 2.25 GM Premix 2.25 gm In 100 / 100 50 / 50 50 ml @ 100 mls/hr IV.SIG Q8H DOMENICO Rx#:[id number] Vancomycin Inj 1,000 MG In NS 1000 / 1000 Inj 250 ML @ 250 mls/hr IV.SIG WITH DIALYSIS DOMENICO Rx#:[id number] Tube Feeding 560 / 560 79 / 79 Tube Irrigant 150 / 150 Output: Urine 0 / 0 0 / 0 Hemodialysis Amount 2500 / 2500 Other: Date of Last Bowel Movement 04/20/18 04/21/18 04/21/18 # Incontinent Bowel Movements 2 Result Diagrams: 04/21/18 05:26 04/21/18 05:26 Objective Remarks: GENERAL: Patient is 67 yo intubated SKIN: Warm and dry. HEAD: Normocephalic. EYES: No scleral icterus. No injection or drainage. NECK: Supple, trachea midline. No JVD or lymphadenopathy. CARDIOVASCULAR: Regular rate and rhythm without murmurs, gallops, or rubs. RESPIRATORY: Breath sounds equal bilaterally. Scattered wheezing and rhonchi GASTROINTESTINAL: Abdomen soft, non-tender, nondistended. MUSCULOSKELETAL: No cyanosis,+ edema. Neuro: Intubated, sedated. On sedation hold patient wakes up easily following commands. No focal deficit Assessment and Plan - Assessment and Plan Plan: 1. Acute respiratory failure intubated 04/15 2. s/p post cardiopulmonary arrest, asystolic event during colonoscopy 3. ESRD, on hemodialysis. 4. Leukocytosis. 5. Anemia. 6. Hypocalcemia. 7. Hypertension. 8. Diabetes mellitus. 9. COPD 10. Previous renal transplant in 2004. 11. CAD/CABG in 2003. 12. GERD 13. SVT Plan Neuro: On Diprivan infusion for sedation. Daily sedation vacation. Monitor neuro status closely Pulm: Continue with vent support and maintain sats >90%. On PRVC RR 18, TV 550, IT:0.9, PEEP: 5, FIO2: 60% Increase PEEP to wean FiO2. Initiate CPAP trial Bronchodilators, ICU vent bundle SBT daily as elda. Pulm is following- Dr. Ramirez, status post bronchoscopy yesterday, mucoid secretions removed CV: Monitor HR and BP and maintain MAP >65 mmHg. Cards is following- Dr. Arredondo. [facility] when resp status improves Echo showed EF 50-55% On ASA, Lipitor, Imdur : Monitor renal function, I's and O's and avoid nephrotoxins. Renal is following. HD per renal ID: Continue abx on Zosyn/Vanco monitor for signs of infections ( fever, WBC) Follow up on sputum cx. Negative today GI: On Protonix 40 mg daily. On tube feeds- Nepro with goal rate 50ml/hr per nutrition recommendations. Hold TF for possible extubation today Heme: Monitor CBC. Endo: Transitioned from insulin infusion to SSI with accuhecks, on Prednisone 5mg daily GI prophylaxis- on Protonix 40 mg daily DVT prophylaxis- on SCD and heparin subcu Level 3
--- NOTE | 2018-04-21 12:21 | P.PN ---
Subjective Interval history: The patient was extubated this morning and now on a Ventimask at 50%. He is awake cooperative and answers questions.. Moves all extremities. O2 saturation 95%. Urine output remains good. Chest x-ray stable with mild atelectasis. Physical Exam Vital signs: Vital Signs 04/20/18 12:23 04/20/18 12:30 04/20/18 13:00 Temperature Pulse Rate 86 80 Respiratory Rate 21 18 Blood Pressure 124/60 119/56 L Pulse Oximetry 96 97 97 04/20/18 13:30 04/20/18 13:45 04/20/18 14:00 Temperature Pulse Rate 76 75 82 Respiratory Rate 18 18 19 Blood Pressure 114/56 L 116/59 L 143/64 H Pulse Oximetry 97 97 97 04/20/18 14:15 04/20/18 14:30 04/20/18 14:45 Temperature Pulse Rate 84 84 83 Respiratory Rate 20 21 19 Blood Pressure 156/67 H 146/65 H 140/64 Pulse Oximetry 97 97 97 04/20/18 15:00 04/20/18 15:15 04/20/18 15:30 Temperature Pulse Rate 83 82 76 Respiratory Rate 18 17 19 Blood Pressure 143/65 H 139/61 130/61 Pulse Oximetry 97 97 97 04/20/18 15:45 04/20/18 16:00 04/20/18 16:03 Temperature 99.0 F Pulse Rate 71 75 Respiratory Rate 21 20 18 Blood Pressure 127/57 L 140/62 Pulse Oximetry 97 97 97 04/20/18 16:15 04/20/18 16:30 04/20/18 16:45 Temperature Pulse Rate 85 83 84 Respiratory Rate 18 18 20 Blood Pressure 120/66 135/72 140/67 Pulse Oximetry 96 96 96 04/20/18 17:00 04/20/18 17:15 04/20/18 17:30 Temperature Pulse Rate 82 82 84 Respiratory Rate 17 20 19 Blood Pressure 139/67 138/63 145/65 H Pulse Oximetry 96 96 95 04/20/18 17:45 04/20/18 18:00 04/20/18 18:30 Temperature Pulse Rate 83 82 80 Respiratory Rate 18 19 18 Blood Pressure 132/62 130/57 L 116/58 L Pulse Oximetry 95 95 95 04/20/18 19:00 04/20/18 19:01 04/20/18 19:31 Temperature Pulse Rate 79 80 73 Respiratory Rate 18 19 18 Blood Pressure 130/61 120/56 L Pulse Oximetry 95 95 95 04/20/18 20:00 04/20/18 20:01 04/20/18 20:23 Temperature 98.7 F Pulse Rate 73 73 Respiratory Rate 18 18 18 Blood Pressure 121/55 L Pulse Oximetry 95 95 95 04/20/18 20:25 04/20/18 20:30 04/20/18 21:00 Temperature Pulse Rate 77 83 81 Respiratory Rate 18 18 18 Blood Pressure 132/61 130/60 Pulse Oximetry 95 96 04/20/18 21:30 04/20/18 22:00 04/20/18 22:30 Temperature Pulse Rate 84 85 84 Respiratory Rate 18 19 17 Blood Pressure 126/65 125/57 L 132/64 Pulse Oximetry 96 96 96 04/20/18 23:00 04/20/18 23:30 04/21/18 00:00 Temperature Pulse Rate 83 85 78 Respiratory Rate 18 19 18 Blood Pressure 129/61 128/60 Pulse Oximetry 96 96 96 04/21/18 00:01 04/21/18 00:30 04/21/18 00:37 Temperature Pulse Rate 78 79 Respiratory Rate 18 18 18 Blood Pressure 111/52 L 108/53 L Pulse Oximetry 96 96 97 04/21/18 01:00 04/21/18 01:30 04/21/18 02:00 Temperature Pulse Rate 79 81 79 Respiratory Rate 19 19 8 L Blood Pressure 104/52 L 107/53 L 109/53 L Pulse Oximetry 94 L 93 L 93 L 04/21/18 02:30 04/21/18 03:00 04/21/18 03:30 Temperature Pulse Rate 81 82 87 Respiratory Rate 10 L 18 18 Blood Pressure 109/54 L 108/53 L 111/59 L Pulse Oximetry 93 L 94 L 86 L 04/21/18 04:00 04/21/18 04:26 04/21/18 04:30 Temperature 99.0 F Pulse Rate 87 87 Respiratory Rate 18 18 13 Blood Pressure 105/51 L 114/59 L Pulse Oximetry 92 L 96 95 04/21/18 05:00 04/21/18 05:30 04/21/18 06:00 Temperature Pulse Rate 87 87 87 Respiratory Rate 18 19 9 L Blood Pressure 114/55 L 124/60 128/67 Pulse Oximetry 96 95 95 04/21/18 06:30 04/21/18 07:00 04/21/18 07:30 Temperature Pulse Rate 88 90 81 Respiratory Rate 21 22 18 Blood Pressure 132/64 146/67 H 138/60 Pulse Oximetry 95 96 96 04/21/18 07:50 04/21/18 07:51 04/21/18 08:00 Temperature 98.2 F Pulse Rate 79 78 Respiratory Rate 19 18 18 Blood Pressure 130/60 Pulse Oximetry 94 L 94 L 04/21/18 08:30 04/21/18 09:00 04/21/18 09:30 Temperature Pulse Rate 83 88 84 Respiratory Rate 18 9 L 7 L Blood Pressure 134/61 125/63 120/59 L Pulse Oximetry 93 L 93 L 93 L 04/21/18 11:33 Temperature Pulse Rate Respiratory Rate Blood Pressure Pulse Oximetry 93 L Intake & Output 04/20/18 04/21/18 04/21/18 18:59 06:59 18:59 Intake Total 1372 / 1372 1160 / 1160 79 Output Total 2500 / 2500 0 / 0 Balance -1128 / -1128 1160 / 1160 Weight 120.8 kg Intake: IV 1372 / 1372 450 / 450 NovoLIN R (IV Infusion) 100 39 / 39 UNIT In NS Inj 99 ML @ Per Protocol IV.CONT TITRATE PRN Rx #:[id number] Diprivan 1000 mg/100 ml Inj 1, 233 / 233 400 / 400 000 mg In 100 ml @ 5 MCG/KG/MIN 3.708 mls/hr IV.CONT TITRATE PRN Rx#:[id number] Zosyn 2.25 GM Premix 2.25 gm In 100 / 100 50 / 50 50 ml @ 100 mls/hr IV.SIG Q8H DOMENICO Rx#:[id number] Vancomycin Inj 1,000 MG In NS 1000 / 1000 Inj 250 ML @ 250 mls/hr IV.SIG WITH DIALYSIS DOMENICO Rx#:[id number] Tube Feeding 560 / 560 79 / 79 Tube Irrigant 150 / 150 Output: Urine 0 / 0 0 / 0 Hemodialysis Amount 2500 / 2500 Other: Date of Last Bowel Movement 04/20/18 04/21/18 04/21/18 # Incontinent Bowel Movements 2 Narrative: GENERAL: Obese middle-aged white male awake and NAD. SKIN: Warm and dry. HEAD: Normocephalic. EYES: No injection or drainage. NECK: Supple, trachea midline. No JVD or lymphadenopathy. CARDIOVASCULAR: Regular rate and rhythm without murmurs, gallops, or rubs. RESPIRATORY: Bilateral expiratory wheezes with occasional basilar crackles GASTROINTESTINAL: Abdomen soft, non-tender. MUSCULOSKELETAL: No cyanosis, bilateral lower extremity edema, AVF left arm. Neuro: Alert Results - Labs CBC & Chem 7: 04/21/18 05:26 04/21/18 05:26 Laboratory Results - last 24 hr 04/20/18 04/20/18 04/20/18 12:22 16:02 20:04 WBC RBC Hgb Hct MCV MCH MCHC RDW Plt Count MPV Neut % (Auto) Lymph % (Auto) [place] % (Auto) Eos % (Auto) Baso % (Auto) Neut # (Auto) Lymph # (Auto) [place] # (Auto) Eos # (Auto) Baso # (Auto) WBC Differential Differential Comment Sodium Potassium Chloride Carbon Dioxide Anion Gap BUN Creatinine Estimated GFR POC Glucose 194 H 120 H 135 H Random Glucose Calcium Calcium Adj for Albumin Magnesium Total Bilirubin AST ALT Alkaline Phosphatase Total Protein Albumin 04/21/18 04/21/18 04/21/18 00:53 04:53 05:26 WBC 12.8 H RBC 3.62 L Hgb 10.3 L Hct 31.2 L MCV 86.2 MCH 28.4 MCHC 33.0 RDW 17.1 Plt Count 168 MPV 9.3 Neut % (Auto) 83.3 H Lymph % (Auto) 6.5 L [place] % (Auto) 8.6 H Eos % (Auto) 1.5 Baso % (Auto) 0.1 Neut # (Auto) 10.6 H Lymph # (Auto) 0.8 L [place] # (Auto) 1.1 H Eos # (Auto) 0.2 Baso # (Auto) 0.0 WBC Differential . Differential Comment Auto diff final Sodium Potassium Chloride Carbon Dioxide Anion Gap BUN Creatinine Estimated GFR POC Glucose 151 H 203 H Random Glucose Calcium Calcium Adj for Albumin Magnesium Total Bilirubin AST ALT Alkaline Phosphatase Total Protein Albumin 04/21/18 04/21/18 04/21/18 05:26 07:41 11:26 WBC RBC Hgb Hct MCV MCH MCHC RDW Plt Count MPV Neut % (Auto) Lymph % (Auto) [place] % (Auto) Eos % (Auto) Baso % (Auto) Neut # (Auto) Lymph # (Auto) [place] # (Auto) Eos # (Auto) Baso # (Auto) WBC Differential Differential Comment Sodium 138 Potassium 3.8 Chloride 97 L Carbon Dioxide 26.1 Anion Gap 15 BUN 75 H Creatinine 6.78 H Estimated GFR 8 L POC Glucose 245 H 162 H Random Glucose 193 H Calcium 7.3 L* Calcium Adj for Albumin 8.3 L Magnesium 2.6 H Total Bilirubin 0.6 AST 9 L ALT 15 Alkaline Phosphatase 118 H Total Protein 6.4 Albumin 2.8 L Microbiology 04/20/18 12:15 Bronchial - Bronchial Gram Stain - Final 04/18/18 03:15 Sputum - Endotracheal Gram Stain - Final 04/18/18 03:15 Sputum - Endotracheal Sputum Culture - Final Moderate growth normal respiratory jose - Imaging Impressions Chest X-Ray 04/21/18 00:00 CONCLUSION: 1. Small right pleural effusion with associated volume loss and/or airspace consolidation is stable. Perihilar interstitial prominence is also stable. 2. Stable enlargement of the cardiac silhouette. Assessment and Plan - Assessment (1) Respiratory failure Code(s): J96.90 - Respiratory failure, unspecified, unspecified whether with hypoxia or hypercapnia Status: Acute (2) Metabolic bone disease Code(s): E88.9 - Metabolic disorder, unspecified; M90.80 - Osteopathy in diseases classified elsewhere, unspecified site Status: Acute (3) Supraventricular arrhythmia Code(s): I49.9 - Cardiac arrhythmia, unspecified Status: Acute (4) End stage renal disease Code(s): N18.6 - End stage renal disease Status: Acute (5) Hypertension Code(s): I10 - Essential (primary) hypertension Status: Acute (6) Diabetes Code(s): E11.9 - Type 2 diabetes mellitus without complications Status: Acute (7) End stage renal disease on dialysis Code(s): N18.6 - End stage renal disease; Z99.2 - Dependence on renal dialysis Status: Acute (8) Cardiopulmonary arrest with successful resuscitation Code(s): I46.9 - Cardiac arrest, cause unspecified Status: Acute (9) End stage renal disease on dialysis Code(s): N18.6 - End stage renal disease; Z99.2 - Dependence on renal dialysis Status: Acute - Plan #1 Ventimask at 50% FiO2 to keep sats over 90 2. Use BiPAP at at bedtime 12/5 centimeter FiO2 of 40% 3. Incentive spirometry every 2 hours bedside 4. Continue antibiotics as ordered 5. DuoNeb nebs 4 times daily. 6. Swallow evaluation and soft diet 7. CBC BMP chest x-ray in a.m. 8. DC sedation 9. 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
--- NOTE | 2018-04-21 12:32 | P.PNNP ---
Subjective Interval history: Patient was seen, no distress, to be extubated today. Patient dialyzed yesterday, 2.5 L removed. Patient gets dialysis MWF. <Leeann Mcgarry - Last Filed: 04/21/18 12:29> Physical Exam Vital signs: Vital Signs 04/20/18 12:30 04/20/18 13:00 04/20/18 13:30 Temperature Pulse Rate 86 80 76 Respiratory Rate 21 18 18 Blood Pressure 124/60 119/56 L 114/56 L Pulse Oximetry 97 97 97 04/20/18 13:45 04/20/18 14:00 04/20/18 14:15 Temperature Pulse Rate 75 82 84 Respiratory Rate 18 19 20 Blood Pressure 116/59 L 143/64 H 156/67 H Pulse Oximetry 97 97 97 04/20/18 14:30 04/20/18 14:45 04/20/18 15:00 Temperature Pulse Rate 84 83 83 Respiratory Rate 21 19 18 Blood Pressure 146/65 H 140/64 143/65 H Pulse Oximetry 97 97 97 04/20/18 15:15 04/20/18 15:30 04/20/18 15:45 Temperature Pulse Rate 82 76 71 Respiratory Rate 17 19 21 Blood Pressure 139/61 130/61 127/57 L Pulse Oximetry 97 97 97 04/20/18 16:00 04/20/18 16:03 04/20/18 16:15 Temperature 99.0 F Pulse Rate 75 85 Respiratory Rate 20 18 18 Blood Pressure 140/62 120/66 Pulse Oximetry 97 97 96 04/20/18 16:30 04/20/18 16:45 04/20/18 17:00 Temperature Pulse Rate 83 84 82 Respiratory Rate 18 20 17 Blood Pressure 135/72 140/67 139/67 Pulse Oximetry 96 96 96 04/20/18 17:15 04/20/18 17:30 04/20/18 17:45 Temperature Pulse Rate 82 84 83 Respiratory Rate 20 19 18 Blood Pressure 138/63 145/65 H 132/62 Pulse Oximetry 96 95 95 04/20/18 18:00 04/20/18 18:30 04/20/18 19:00 Temperature Pulse Rate 82 80 79 Respiratory Rate 19 18 18 Blood Pressure 130/57 L 116/58 L Pulse Oximetry 95 95 95 04/20/18 19:01 04/20/18 19:31 04/20/18 20:00 Temperature 98.7 F Pulse Rate 80 73 73 Respiratory Rate 19 18 18 Blood Pressure 130/61 120/56 L Pulse Oximetry 95 95 95 04/20/18 20:01 04/20/18 20:23 04/20/18 20:25 Temperature Pulse Rate 73 77 Respiratory Rate 18 18 18 Blood Pressure 121/55 L Pulse Oximetry 95 95 04/20/18 20:30 04/20/18 21:00 04/20/18 21:30 Temperature Pulse Rate 83 81 84 Respiratory Rate 18 18 18 Blood Pressure 132/61 130/60 126/65 Pulse Oximetry 95 96 96 04/20/18 22:00 04/20/18 22:30 04/20/18 23:00 Temperature Pulse Rate 85 84 83 Respiratory Rate 19 17 18 Blood Pressure 125/57 L 132/64 129/61 Pulse Oximetry 96 96 96 04/20/18 23:30 04/21/18 00:00 04/21/18 00:01 Temperature Pulse Rate 85 78 78 Respiratory Rate 19 18 18 Blood Pressure 128/60 111/52 L Pulse Oximetry 96 96 96 04/21/18 00:30 04/21/18 00:37 04/21/18 01:00 Temperature Pulse Rate 79 79 Respiratory Rate 18 18 19 Blood Pressure 108/53 L 104/52 L Pulse Oximetry 96 97 94 L 04/21/18 01:30 04/21/18 02:00 04/21/18 02:30 Temperature Pulse Rate 81 79 81 Respiratory Rate 19 8 L 10 L Blood Pressure 107/53 L 109/53 L 109/54 L Pulse Oximetry 93 L 93 L 93 L 04/21/18 03:00 04/21/18 03:30 04/21/18 04:00 Temperature 99.0 F Pulse Rate 82 87 87 Respiratory Rate 18 18 18 Blood Pressure 108/53 L 111/59 L 105/51 L Pulse Oximetry 94 L 86 L 92 L 04/21/18 04:26 04/21/18 04:30 04/21/18 05:00 Temperature Pulse Rate 87 87 Respiratory Rate 18 13 18 Blood Pressure 114/59 L 114/55 L Pulse Oximetry 96 95 96 04/21/18 05:30 04/21/18 06:00 04/21/18 06:30 Temperature Pulse Rate 87 87 88 Respiratory Rate 19 9 L 21 Blood Pressure 124/60 128/67 132/64 Pulse Oximetry 95 95 95 04/21/18 07:00 04/21/18 07:30 04/21/18 07:50 Temperature Pulse Rate 90 81 79 Respiratory Rate 22 18 19 Blood Pressure 146/67 H 138/60 Pulse Oximetry 96 96 04/21/18 07:51 04/21/18 08:00 04/21/18 08:30 Temperature 98.2 F Pulse Rate 78 83 Respiratory Rate 18 18 18 Blood Pressure 130/60 134/61 Pulse Oximetry 94 L 94 L 93 L 04/21/18 09:00 04/21/18 09:30 04/21/18 11:33 Temperature Pulse Rate 88 84 Respiratory Rate 9 L 7 L Blood Pressure 125/63 120/59 L Pulse Oximetry 93 L 93 L 93 L Intake & Output 04/20/18 04/21/18 04/21/18 18:59 06:59 18:59 Intake Total 1372 / 1372 1160 / 1160 79 / 79 Output Total 2500 / 2500 0 / 0 Balance -1128 / -1128 1160 / 1160 79 / 79 Weight 120.8 kg Intake: IV 1372 / 1372 450 / 450 NovoLIN R (IV Infusion) 100 39 / 39 UNIT In NS Inj 99 ML @ Per Protocol IV.CONT TITRATE PRN Rx #:[id number] Diprivan 1000 mg/100 ml Inj 1, 233 / 233 400 / 400 000 mg In 100 ml @ 5 MCG/KG/MIN 3.708 mls/hr IV.CONT TITRATE PRN Rx#:[id number] Zosyn 2.25 GM Premix 2.25 gm In 100 / 100 50 / 50 50 ml @ 100 mls/hr IV.SIG Q8H [facility] Rx#:[id number] Vancomycin Inj 1,000 MG In NS 1000 / 1000 Inj 250 ML @ 250 mls/hr IV.SIG WITH DIALYSIS [facility] Rx#:[id number] Tube Feeding 560 / 560 79 / 79 Tube Irrigant 150 / 150 Output: Urine 0 / 0 0 / 0 Hemodialysis Amount 2500 / 2500 Other: Date of Last Bowel Movement 04/20/18 04/21/18 04/21/18 # Incontinent Bowel Movements 2 Narrative: GENERAL: NAD. SKIN: Warm and dry. HEAD: Normocephalic. EYES: No injection or drainage. NECK: Supple, trachea midline. No JVD or lymphadenopathy. CARDIOVASCULAR: Regular rate and rhythm without murmurs, gallops, or rubs. RESPIRATORY: No respiratory distress. On 45% FiO2. GASTROINTESTINAL: Abdomen soft, non-tender. MUSCULOSKELETAL: No cyanosis, bilateral lower extremity edema, AVF left arm. Neuro: Alert <ZeferinoLeeann - Last Filed: 04/21/18 12:29> Vital signs: Vital Signs 04/20/18 21:00 04/20/18 21:30 04/20/18 22:00 Temperature Pulse Rate 81 84 85 Respiratory Rate 18 18 19 Blood Pressure 130/60 126/65 125/57 L Pulse Oximetry 96 96 96 04/20/18 22:30 04/20/18 23:00 04/20/18 23:30 Temperature Pulse Rate 84 83 85 Respiratory Rate 17 18 19 Blood Pressure 132/64 129/61 128/60 Pulse Oximetry 96 96 96 04/21/18 00:00 04/21/18 00:01 04/21/18 00:30 Temperature Pulse Rate 78 78 79 Respiratory Rate 18 18 18 Blood Pressure 111/52 L 108/53 L Pulse Oximetry 96 96 96 04/21/18 00:37 04/21/18 01:00 04/21/18 01:30 Temperature Pulse Rate 79 81 Respiratory Rate 18 19 19 Blood Pressure 104/52 L 107/53 L Pulse Oximetry 97 94 L 93 L 04/21/18 02:00 04/21/18 02:30 04/21/18 03:00 Temperature Pulse Rate 79 81 82 Respiratory Rate 8 L 10 L 18 Blood Pressure 109/53 L 109/54 L 108/53 L Pulse Oximetry 93 L 93 L 94 L 04/21/18 03:30 04/21/18 04:00 04/21/18 04:26 Temperature 99.0 F Pulse Rate 87 87 Respiratory Rate 18 18 18 Blood Pressure 111/59 L 105/51 L Pulse Oximetry 86 L 92 L 96 04/21/18 04:30 04/21/18 05:00 04/21/18 05:30 Temperature Pulse Rate 87 87 87 Respiratory Rate 13 18 19 Blood Pressure 114/59 L 114/55 L 124/60 Pulse Oximetry 95 96 95 04/21/18 06:00 04/21/18 06:30 04/21/18 07:00 Temperature Pulse Rate 87 88 90 Respiratory Rate 9 L 21 22 Blood Pressure 128/67 132/64 146/67 H Pulse Oximetry 95 95 96 04/21/18 07:30 04/21/18 07:50 04/21/18 07:51 Temperature Pulse Rate 81 79 Respiratory Rate 18 19 18 Blood Pressure 138/60 Pulse Oximetry 96 94 L 04/21/18 08:00 04/21/18 08:30 04/21/18 09:00 Temperature 98.2 F Pulse Rate 78 83 88 Respiratory Rate 18 18 9 L Blood Pressure 130/60 134/61 125/63 Pulse Oximetry 94 L 93 L 93 L 04/21/18 09:30 04/21/18 10:00 04/21/18 10:30 Temperature Pulse Rate 84 85 86 Respiratory Rate 7 L 13 13 Blood Pressure 120/59 L 133/63 144/66 H Pulse Oximetry 93 L 95 94 L 04/21/18 11:00 04/21/18 11:30 04/21/18 11:33 Temperature Pulse Rate 87 95 H Respiratory Rate 14 22 Blood Pressure 144/65 H 158/68 H Pulse Oximetry 94 L 94 L 93 L 04/21/18 12:00 04/21/18 12:23 04/21/18 12:30 Temperature 98.5 F Pulse Rate 93 H 93 H 94 H Respiratory Rate 29 H 22 24 Blood Pressure 160/70 H 160/70 H 164/91 H Pulse Oximetry 91 L 91 L 91 L 04/21/18 13:00 04/21/18 13:24 04/21/18 13:26 Temperature Pulse Rate 96 H 93 H Respiratory Rate 24 23 22 Blood Pressure 161/70 H Pulse Oximetry 92 L 04/21/18 13:30 04/21/18 14:00 04/21/18 14:31 Temperature Pulse Rate 92 H 96 H 95 H Respiratory Rate 23 21 28 H Blood Pressure 159/69 H 170/74 H 150/66 H Pulse Oximetry 95 93 L 93 L 04/21/18 15:00 04/21/18 15:30 04/21/18 16:00 Temperature 98.5 F Pulse Rate 95 H 92 H 91 H Respiratory Rate 19 22 31 H Blood Pressure 142/63 H 142/64 H 147/66 H Pulse Oximetry 93 L 93 L 93 L 04/21/18 16:30 04/21/18 17:00 04/21/18 17:30 Temperature Pulse Rate 90 91 H 92 H Respiratory Rate 21 25 H 21 Blood Pressure 143/68 H 156/69 H 160/80 H Pulse Oximetry 93 L 91 L 92 L 04/21/18 18:00 04/21/18 18:30 04/21/18 19:00 Temperature Pulse Rate 93 H 92 H 91 H Respiratory Rate 23 17 Blood Pressure 175/77 H 162/69 H Pulse Oximetry 92 L 93 L 04/21/18 19:29 Temperature Pulse Rate 91 H Respiratory Rate 18 Blood Pressure Pulse Oximetry 95 Intake & Output 04/21/18 04/21/18 04/22/18 06:59 18:59 06:59 Intake Total 1160 / 1160 369 / 369 50 / 50 Output Total 0 / 0 0 / 0 Balance 1160 / 1160 369 / 369 50 / 50 Weight 120.8 kg Intake: IV 450 / 450 50 / 50 50 / 50 Diprivan 1000 mg/100 ml Inj 1, 400 / 400 000 mg In 100 ml @ 5 MCG/KG/MIN 3.708 mls/hr IV.CONT TITRATE PRN Rx#:[id number] Zosyn 2.25 GM Premix 2.25 gm In 50 / 50 50 / 50 50 / 50 50 ml @ 100 mls/hr IV.SIG Q8H [facility] Rx#:[id number] Oral 240 / 240 Tube Feeding 560 / 560 79 / 79 Tube Irrigant 150 / 150 Output: Urine 0 / 0 0 / 0 Other: Date of Last Bowel Movement 04/21/18 04/21/18 # Bowel Movements 2 <Tramaine Dixon - Last Filed: 04/21/18 20:40> Assessment and Plan - Assessment (1) End stage renal disease Code(s): N18.6 - End stage renal disease Status: Acute Plan: Pateint with ESRD, on Home HD. Patient getting dialysis MWF while hospitalized. Patient dialyzed yesterday, 2.5 L removed. Avoid blood draws or BP measurements in left arm due to AVF. Avoid nephrotoxic agents. (2) Hypertension Code(s): I10 - Essential (primary) hypertension Status: Acute Qualifiers: Hypertension type: essential hypertension Qualified Code(s): I10 - Essential (primary) hypertension Plan: Continue to monitor. (3) Diabetes Code(s): E11.9 - Type 2 diabetes mellitus without complications Status: Acute Qualifiers: Diabetes mellitus salvage determiner insulin use: unspecified mcc insulin use status Plan: Monitor blood glucose.Insulin coverage to maintain blood glucose levels between 140 and 180 while hospitalized. (4) Cardiopulmonary arrest with successful resuscitation Code(s): I46.9 - Cardiac arrest, cause unspecified Status: Acute Plan: Cardiology consulted and note reviewed. Per note review, cardiology has signed off and plan a cardiac catheterization when patient is extubated and ready for procedure from a respiratory standpoint. Possible extubation today. (5) Metabolic bone disease Code(s): E88.9 - Metabolic disorder, unspecified; M90.80 - Osteopathy in diseases classified elsewhere, unspecified site Status: Acute Plan: Sensipar has been held due to hypocalcemia. PTH level 1954, started on Calcitriol 0.5 mcg po daily. Monitor phosphorus intermittently, patient is on PhosLo. <Leeann Mcgarry - Last Filed: 04/21/18 12:29> - Assessment (1) End stage renal disease Code(s): N18.6 - End stage renal disease Status: Acute (2) Hypertension Code(s): I10 - Essential (primary) hypertension Status: Acute Qualifiers: Hypertension type: essential hypertension Qualified Code(s): I10 - Essential (primary) hypertension (3) Diabetes Code(s): E11.9 - Type 2 diabetes mellitus without complications Status: Acute Qualifiers: Diabetes mellitus salvage determiner insulin use: unspecified salvage determiner insulin use status (4) Cardiopulmonary arrest with successful resuscitation Code(s): I46.9 - Cardiac arrest, cause unspecified Status: Acute (5) Metabolic bone disease Code(s): E88.9 - Metabolic disorder, unspecified; M90.80 - Osteopathy in diseases classified elsewhere, unspecified site Status: Acute - Attending Attestation patient was seen and examined. Agree with above assessment and plan. <Tramaine Dixon - Last Filed: 04/21/18 20:40>
[2018-04-22] MEDS: Insulin NovoLIN Regular Correctional Sugar Inj SQ SCH ×6 (00:53→21:18)
[2018-04-22] MEDS: Heparin - SQ 10,000 UNITS/ML Vial SQ SCH ×2 (00:53→18:28)
[2018-04-22] MEDS: Piperacil/Tazo 2.25 GM Premix 2.25 GM/50 ML PIGGYBACK IV.SIG SCH ×3 (01:00→20:24)
[2018-04-22] MEDS: Isosorbide Mononitrate 60 MG ER 24HR Tablet (Imdur) PO SCH (06:16)
[2018-04-22 06:53] LABS: Baso % (Auto) 0.2 % (0.0-2.0); Eos # (Auto) 0.3 th/mm3 (0.0-0.4); Eos % (Auto) 2.4 % (0.0-4.0); Hematocrit 31.8 % (39.0-51.0); Hemoglobin 9.9 gm/dL (13.0-17.0); Lymph # (Auto) 0.8 th/mm3 (1.0-4.8); Lymph % (Auto) 5.2 % (9.0-44.0); Mean Corpuscular HGB Conc 31.3 % (32.0-36.0); Mean Corpuscular Hemoglobin 27.4 pg (27.0-34.0); Mean Corpuscular Volume 87.7 fL (80.0-100.0); Mean Platelet Volume 9.3 fL (7.0-11.0); Mono # (Auto) 1.3 th/mm3 (0.0-0.9); Mono % (Auto) 8.8 % (0.0-8.0); Neut # (Auto) 12.3 th/mm3 (1.8-7.7); Neut % (Auto) 83.4 % (16.0-70.0); Platelet Count 166 th/mm3 (150-450); Red Blood Count 3.62 mil/mm3 (4.50-5.90); Red Cell Distribution Width 17.8 % (11.6-17.2); White Blood Count 14.7 th/mm3 (4.0-11.0)
[2018-04-22 07:12] LABS: Alanine Aminotransferase 12 U/L (12-78); Alkaline Phosphatase 98 U/L (45-117); Anion Gap 20 meq/L (5-15); Aspartate Aminotransferase 11 U/L (15-37); Blood Urea Nitrogen 84 mg/dL (7-18); Calcium 7.7 mg/dL (8.5-10.1); Chloride 95 meq/L (98-107); Glomerular Filtration Rate 7 mL/min (>89); Glucose,Random 106 mg/dL (74-106); Potassium 4.5 meq/L (3.5-5.1); Sodium 137 meq/L (136-145); Total Protein 6.7 g/dL (6.4-8.2)
--- NOTE | 2018-04-22 07:53 | P.PNCA ---
Subjective Interval history: Extubated yesterday. Currently on BiPAP. Patient feels like his breathing continues to improve. He reports mild chest discomfort constantly, worse with breathing. Medications and Allergies Allergies Allergy/AdvReac Type Severity Reaction Status Date / Time No Known Allergies Allergy Verified 04/11/18 10:33 Home Medications Medication Instructions Recorded Confirmed Type furosemide 80 mg PO DAILY 11/10/17 04/11/18 History insulin glargine [Lantus U-100 25 unit SUB-Q HS 11/10/17 04/11/18 History Insulin] prednisone 5 mg PO DAILY 11/10/17 04/11/18 History sevelamer carbonate [Renvela] 1,600 mg PO TIDAC 11/10/17 04/11/18 History albuterol sulfate [Ventolin HFA] 2 puff INHALATION Q4-6H PRN 04/11/18 04/11/18 History Active Medications: Active Medications Hydrocodone Bitart/Acetaminophen ([place] 10/325) 1 tab PO Q6H PRN PRN Reason: PAIN SCALE 6 TO 10 Last Admin: 04/22/18 00:56 Dose: 1 tab Albuterol (Duoneb Neb (Prn)) 1 ampul NEB Q2HR NEB PRN PRN Reason: WHEEZING Last Admin: 04/19/18 15:39 Dose: 1 ampul Albuterol (Duoneb Neb (Chel)) 1 ampul NEB Q6HR ALT NEB [facility] Last Admin: 04/22/18 07:34 Dose: 1 ampul Aspirin (Ecotrin) 81 mg PO DAILY [facility] Last Admin: 04/21/18 08:01 Dose: 81 mg Atorvastatin Calcium (Lipitor) 40 mg PO [facility] Last Admin: 04/21/18 20:17 Dose: 40 mg Bisacodyl (Dulcolax Supp) 10 mg RECTAL DAILY PRN PRN Reason: SEVERE CONSITIPATION Calcitriol (Rocaltrol) 0.5 mcg PO DAILY [facility] Last Admin: 04/21/18 08:02 Dose: Not Given Calcium Acetate (Phoslo) 1,334 mg PO TID [facility] Last Admin: 04/21/18 18:12 Dose: 1,334 mg Clonidine HCl (Catapres) 0.1 mg PO UNSCH PRN PRN Reason: SEE LABEL COMMENTS Dextrose (D50w Vial) 50 ml IV.PUSH UNSCH PRN PRN Reason: PER HYPOGLYCEMIA PROTOCOL Diphenhydramine HCl (Benadryl) 25 mg PO UNSCH PRN PRN Reason: SEE LABEL COMMENTS Epoetin Gian (Epogen Inj) 4,000 unit IV.PUSH UNSCH PRN PRN Reason: SEE LABEL COMMENTS Last Admin: 04/20/18 15:40 Dose: 4,000 unit Gelatin (Gelfoam 12 Mm/7 Mm Topical) 1 foam TOPICAL PRN PRN PRN Reason: help stop bleeding from site Gentamicin Sulfate (Gentamicin Inj) 20 mg OTHER WITH DIALYSIS PRN PRN Reason: Dwell Gentamycin Lock Glucagon (Glucagon Inj) 1 mg OTHER PRN PRN PRN Reason: for Hypoglycemia Protocol Heparin Sodium (Porcine) (Heparin Inj) 5,000 units SQ Q12H [facility] Last Admin: 04/22/18 00:53 Dose: 5,000 units Heparin Sodium (Porcine) (Heparin Inj) 8,000 units OTHER WITH DIALYSIS PRN PRN Reason: for machine prime Heparin Sodium (Porcine) (Heparin Inj) 1,000 units OTHER WITH DIALYSIS PRN PRN Reason: Dwell Heparin to Fill Catheter Albumin Human (Flexbumin 25% Inj) 100 mls @ 60 mls/hr IV.SIG WITH DIALYSIS PRN PRN Reason: hypotension / volume replace Last Infusion: 04/15/18 09:14 Dose: Infused Sodium Chloride (Ns Inj) 1,000 mls @ 0 mls/hr OTHER .Q0M PRN PRN Reason: for prime and rinse back Sodium Chloride (Ns Inj) 1,000 mls @ 200 mls/hr OTHER .Q5H PRN PRN Reason: for dialyzer flush PRN Sodium Chloride (Ns Inj) 1,000 mls @ 0 mls/hr IV.CONT .Q0M PRN PRN Reason: hypotension / volume replace Piperacillin/Tazobactam/Dextrose (Zosyn 2.25 Gm Premix) 2.25 gm in 50 mls @ 100 mls/hr IV.SIG Q8H [facility] Last Infusion: 04/22/18 05:08 Dose: Infused Vancomycin HCl 1,000 mg/ (Sodium Chloride) 250 mls @ 250 mls/hr IV.SIG WITH DIALYSIS [facility] Last Infusion: 04/20/18 16:10 Dose: Infused Propofol (Diprivan 1000 Mg/100 Ml Inj) 1,000 mg in 100 mls @ 3.708 mls/hr IV.CONT TITRATE PRN; Protocol PRN Reason: Per Protocol Last Titration: 04/21/18 09:30 Dose: 0 mcg/kg/min, 0 mls/hr Insulin Human Regular (Novolin R Correctional Sugar Inj) 0 units SQ Q4HR [facility]; Protocol Last Admin: 04/22/18 05:08 Dose: Not Given Isosorbide Mononitrate (Imdur) 120 mg PO DAILY@0700 [facility] Last Admin: 04/22/18 06:16 Dose: 120 mg Lactulose (Lactulose Liq) 30 ml PO DAILY PRN PRN Reason: SEVERE CONSITIPATION Last Admin: 04/15/18 01:42 Dose: 30 ml Mannitol (Mannitol Inj) 12.5 gm IV.PUSH UNSCH PRN PRN Reason: hypotension / volume replace Nitroglycerin (Nitrostat Sl) 0.4 mg SL Q5M PRN PRN Reason: CHEST PAIN Ondansetron HCl (Zofran Inj) 4 mg IV.PUSH Q6H PRN PRN Reason: NAUSEA OR VOMITING Pantoprazole Sodium (Protonix Inj) 40 mg IV.PUSH DAILY [facility] Last Admin: 04/21/18 08:01 Dose: 40 mg Prednisone (Deltasone) 5 mg PO DAILY [facility] Last Admin: 04/21/18 08:01 Dose: 5 mg Senna/Docusate Sodium (Maribel-Colace) 1 tab PO BID [facility] Last Admin: 04/21/18 20:17 Dose: Not Given Sennosides (Senokot) 17.2 mg PO Q12H PRN PRN Reason: Moderate Constipation Sodium Chloride (Ns Flush) 2 ml IV.FLUSH UNSCH PRN PRN Reason: FLUSH AFTER USING IV ACCESS Sodium Chloride (Ns Flush) 2 ml IV.FLUSH BID [facility] Last Admin: 04/21/18 20:17 Dose: 2 ml Sodium Chloride (Ns Flush) 5 ml IV.FLUSH PRN PRN PRN Reason: flush each lumen during HD Physical Exam Vital signs: Vital Signs 04/21/18 07:51 04/21/18 08:00 04/21/18 08:30 Temperature 98.2 F Pulse Rate 78 83 Respiratory Rate 18 18 18 Blood Pressure 130/60 134/61 Pulse Oximetry 94 L 94 L 93 L 04/21/18 09:00 04/21/18 09:30 04/21/18 10:00 Temperature Pulse Rate 88 84 85 Respiratory Rate 9 L 7 L 13 Blood Pressure 125/63 120/59 L 133/63 Pulse Oximetry 93 L 93 L 95 04/21/18 10:30 04/21/18 11:00 04/21/18 11:30 Temperature Pulse Rate 86 87 95 H Respiratory Rate 13 14 22 Blood Pressure 144/66 H 144/65 H 158/68 H Pulse Oximetry 94 L 94 L 94 L 04/21/18 11:33 04/21/18 12:00 04/21/18 12:23 Temperature 98.5 F Pulse Rate 93 H 93 H Respiratory Rate 29 H 22 Blood Pressure 160/70 H 160/70 H Pulse Oximetry 93 L 91 L 91 L 04/21/18 12:30 04/21/18 13:00 04/21/18 13:24 Temperature Pulse Rate 94 H 96 H 93 H Respiratory Rate 24 24 23 Blood Pressure 164/91 H 161/70 H Pulse Oximetry 91 L 92 L 04/21/18 13:26 04/21/18 13:30 04/21/18 14:00 Temperature Pulse Rate 92 H 96 H Respiratory Rate 22 23 21 Blood Pressure 159/69 H 170/74 H Pulse Oximetry 95 93 L 04/21/18 14:31 04/21/18 15:00 04/21/18 15:30 Temperature Pulse Rate 95 H 95 H 92 H Respiratory Rate 28 H 19 22 Blood Pressure 150/66 H 142/63 H 142/64 H Pulse Oximetry 93 L 93 L 93 L 04/21/18 16:00 04/21/18 16:30 04/21/18 17:00 Temperature 98.5 F Pulse Rate 91 H 90 91 H Respiratory Rate 31 H 21 25 H Blood Pressure 147/66 H 143/68 H 156/69 H Pulse Oximetry 93 L 93 L 91 L 04/21/18 17:30 04/21/18 18:00 04/21/18 18:30 Temperature Pulse Rate 92 H 93 H 92 H Respiratory Rate 21 23 17 Blood Pressure 160/80 H 175/77 H 162/69 H Pulse Oximetry 92 L 92 L 93 L 04/21/18 19:00 04/21/18 19:29 04/21/18 19:30 Temperature Pulse Rate 91 H 91 H 91 H Respiratory Rate 19 18 18 Blood Pressure 156/76 H 154/67 H Pulse Oximetry 96 95 96 04/21/18 20:00 04/21/18 20:30 04/21/18 21:00 Temperature 99.0 F Pulse Rate 91 H 91 H 90 Respiratory Rate 17 18 17 Blood Pressure 154/67 H 150/66 H 149/66 H Pulse Oximetry 84 L 95 96 04/21/18 21:30 04/21/18 22:00 04/21/18 22:31 Temperature Pulse Rate 87 90 91 H Respiratory Rate 17 21 17 Blood Pressure 155/68 H 158/72 H 150/66 H Pulse Oximetry 95 93 L 90 L 04/21/18 23:00 04/21/18 23:15 04/21/18 23:30 Temperature Pulse Rate 92 H 87 Respiratory Rate 37 H 15 Blood Pressure 155/70 H 158/70 H Pulse Oximetry 89 L 94 L 94 L 04/21/18 23:51 04/22/18 00:00 04/22/18 00:31 Temperature 98.6 F Pulse Rate 89 89 90 Respiratory Rate 14 14 16 Blood Pressure 158/67 H 128/60 Pulse Oximetry 96 94 L 04/22/18 00:56 04/22/18 01:00 04/22/18 01:01 Temperature Pulse Rate 89 88 Respiratory Rate 20 18 19 Blood Pressure 165/72 H Pulse Oximetry 94 L 94 L 04/22/18 01:31 04/22/18 02:00 04/22/18 02:30 Temperature Pulse Rate 88 91 H 87 Respiratory Rate 14 17 14 Blood Pressure 148/65 H 144/67 H 156/67 H Pulse Oximetry 93 L 93 L 92 L 04/22/18 03:00 04/22/18 03:30 04/22/18 04:00 Temperature 98.6 F Pulse Rate 91 H 90 86 Respiratory Rate 15 15 14 Blood Pressure 151/70 H 159/71 H Pulse Oximetry 94 L 93 L 94 L 04/22/18 04:08 04/22/18 04:14 04/22/18 04:30 Temperature Pulse Rate 85 87 Respiratory Rate 15 18 Blood Pressure 142/65 H 152/66 H Pulse Oximetry 94 L 94 L 94 L 04/22/18 05:00 04/22/18 05:07 04/22/18 06:00 Temperature Pulse Rate 85 83 Respiratory Rate 22 20 Blood Pressure 152/66 H Pulse Oximetry 95 02/08/19 07:00 Temperature Pulse Rate 84 Respiratory Rate 14 Blood Pressure Pulse Oximetry Intake & Output 04/21/18 04/22/18 04/22/18 18:59 06:59 18:59 Intake Total 369 / 369 670 / 670 Output Total 0 / 0 Balance 369 / 369 670 / 670 Weight 263 lb 0.183 oz Intake: IV 50 / 50 100 / 100 Zosyn 2.25 GM Premix 2.25 gm In 50 / 50 100 / 100 50 ml @ 100 mls/hr IV.SIG Q8H [facility] Rx#:[id number] Oral 240 / 240 Tube Feeding 79 / 79 570 / 570 Output: Urine 0 / 0 Other: Date of Last Bowel Movement 04/21/18 04/22/18 # Bowel Movements 2 2 Narrative: GENERAL: Well-developed well-nourished. In no acute distress. NECK: No carotid bruits. No JVD. CARDIOVASCULAR: Regular rate and rhythm. No murmur appreciated. RESPIRATORY: On BiPAP. Clear to auscultation. Breath sounds equal bilaterally. MUSCULOSKELETAL: No clubbing or cyanosis. No edema. NEUROLOGICAL: Awake and alert. Normal speech. Results 04/22/18 04:37 04/22/18 04:37 Cardiac Enzymes 04/21/18 04/22/18 Range/Units 05:26 04:37 AST 9 L 11 L (15-37) U/L CBC 04/21/18 04/22/18 Range/Units 05:26 04:37 WBC 12.8 H 14.7 H (4.0-11.0) th/mm3 RBC 3.62 L 3.62 L (4.50-5.90) mil/mm3 Hgb 10.3 L 9.9 L (13.0-17.0) gm/dL Hct 31.2 L 31.8 L (39.0-51.0) % Plt Count 168 166 (150-450) th/mm3 Neut # (Auto) 10.6 H 12.3 H (1.8-7.7) th/mm3 Lymph # (Auto) 0.8 L 0.8 L (1.0-4.8) th/mm3 [place] # (Auto) 1.1 H 1.3 H (0.0-0.9) th/mm3 Eos # (Auto) 0.2 0.3 (0.0-0.4) th/mm3 Baso # (Auto) 0.0 0.0 (0.0-0.2) th/mm3 Comprehensive Metabolic Panel 04/21/18 04/22/18 Range/Units 05:26 04:37 Sodium 138 137 (136-145) meq/L Potassium 3.8 4.5 (3.5-5.1) meq/L Chloride 97 L 95 L (98-107) meq/L Carbon Dioxide 26.1 22.0 (21.0-32.0) meq/L BUN 75 H 84 H (7-18) mg/dL Creatinine 6.78 H 8.10 H (0.60-1.30) mg/dL Calcium 7.3 L* 7.7 L (8.5-10.1) mg/dL AST 9 L 11 L (15-37) U/L ALT 15 12 (12-78) U/L Alkaline Phosphatase 118 H 98 (45-117) U/L Total Protein 6.4 6.7 (6.4-8.2) g/dL Albumin 2.8 L 3.0 L (3.4-5.0) g/dL Intake and Output 04/21/18 04/22/18 04/22/18 22:59 06:59 14:59 Intake Total 290 / 290 620 / 620 Output Total 0 / 0 Balance 290 / 290 620 / 620 Intake: IV 50 / 50 50 / 50 Zosyn 2.25 GM Premix 2.25 gm In 50 / 50 50 / 50 50 ml @ 100 mls/hr IV.SIG Q8H [facility] Rx#:[id number] Oral 240 / 240 Tube Feeding 570 / 570 Output: Urine 0 / 0 Other: Date of Last Bowel Movement 04/21/18 04/22/18 # Bowel Movements 2 2 Weight 263 lb 0.183 oz - Imaging and Cardiology Imaging: Impressions Chest X-Ray 04/20/18 00:00 CONCLUSION: Minimal improvement with less interstitial edema. Chest X-Ray 04/21/18 00:00 CONCLUSION: 1. Small right pleural effusion with associated volume loss and/or airspace consolidation is stable. Perihilar interstitial prominence is also stable. 2. Stable enlargement of the cardiac silhouette. Assessment and Plan - Plan 57-year-old male with CAD s/p 6v CABG 2003 and PCI to LCx 2015 w05/18 grafts patent on LHC, ESRD on home HD 4x per week, HTN, HLD, DM. The patient was at [facility] getting colonoscopy done 04/11/18 and had reported asystolic cardiac arrest. Asystolic arrest during anesthesia for colonoscopy: No strips available, however no noted VT/VF. Minimal troponin elevation in the setting of ESRD. Previously reported intermittent chest pain symptoms. When the patient was tachycardic he did have ST depression. No significant arrhythmias noted on telemetry since admission. Acute respiratory failure, requiring endotracheal intubation and mechanical ventilation. Suspected aspiration pneumonia. Continue IV antibiotics. Plan for cardiac catheterization after patient is optimized from a respiratory status, possibly on 04/25 if respiratory status continues to improve. Atrial fibrillation, brief episodes in setting of respiratory distress on 04/15/18 , currently NSR. continue to monitor on telemetry. Avoid AVN agents currently with soft BP. No Anticoagulation therapy due to anemia and possible need for invasive procedures. [place]bt[place] records [place] [facility] if [place]oscopy was completed what the results were. Discussed Condition With: Patient, Dr. Medina, Dr. Arredondo - Attending Attestation Patient seen and examined. Agree with above. Extubated and now on BiPAP. [facility] on wednesday if stabilizes from respiratory standpoint over the weekend.
--- NOTE | 2018-04-22 08:14 | P.PNCC ---
Subjective Subjective Remarks/Hospital Course: The patient is a 57-year-old male with multiple medical comorbidities which include end-stage renal disease, on hemodialysis, being followed by Dr. Vogel, status post renal transplant in 2004, hypertension, diabetes mellitus, coronary artery disease with previous coronary artery bypass grafting in 2003. The patient was getting his colonoscopy and while being sedated, he had an asystolic episode. He received 2 rounds of epinephrine and chest compressions performed. He was initially intubated, and on arrival to the ER, he was extubated. The patient was awake, alert, and oriented. He does not recall anything that happened. He reports mild chest discomfort on the right side of his chest wall due to chest compressions. No other complaints were reported. He denies any shortness of breath, orthopnea, PND, or edema of lower extremities. Also, he denies any cough, wheezing or constitutional symptoms 2 Reconsult for resp distress. Patient reports SOB on 4L oxygen, tachycardic and tachypneic. s/p HD earlier today with removal 2.8L. CXR from yesterday increasing density left lung base. Afebrile. 2 Patient was intubated yesterday sedated with Diprivan. On PRVC with PEEP:5 and FIO2 50%. Afebrile. 04/17 Patient remains intubated and sedated. Afebrile. 04/18 Patient remains sedated and intubated. For HD today. Tolerated CPAP for several hrs yesterday. 04/19 Patient remains sedated and intubated. s/p HD yesterday with removal 2.5L. Afebrile. On Insulin drip 3u/hr 04/20 Patient is on low dose Diprivan infusion (10mics) awake, on insulin drip 2u/ hr. Afebrile. 04/21: Currently off all sedation wakes up easily follows commands. Off insulin infusion yesterday. FiO2 at 60% I have increased PEEP to 8 and wean the FiO2 to 50. Initiate CPAP trial for possible extubation 04/22: Extubated yesterday tolerated well initially, desaturated yesterday evening yesterday placed on BiPAP. Currently breathing comfortably on BiPAP. Plan for hemodialysis today. Follows commands Objective Vital Signs / I&O: Vital Signs 04/21/18 08:30 04/21/18 09:00 04/21/18 09:30 Temperature Pulse Rate 83 88 84 Respiratory Rate 18 9 L 7 L Blood Pressure 134/61 125/63 120/59 L Pulse Oximetry 93 L 93 L 93 L 04/21/18 10:00 04/21/18 10:30 04/21/18 11:00 Temperature Pulse Rate 85 86 87 Respiratory Rate 13 13 14 Blood Pressure 133/63 144/66 H 144/65 H Pulse Oximetry 95 94 L 94 L 04/21/18 11:30 04/21/18 11:33 04/21/18 12:00 Temperature 98.5 F Pulse Rate 95 H 93 H Respiratory Rate 22 29 H Blood Pressure 158/68 H 160/70 H Pulse Oximetry 94 L 93 L 91 L 04/21/18 12:23 04/21/18 12:30 04/21/18 13:00 Temperature Pulse Rate 93 H 94 H 96 H Respiratory Rate 22 24 24 Blood Pressure 160/70 H 164/91 H 161/70 H Pulse Oximetry 91 L 91 L 92 L 04/21/18 13:24 04/21/18 13:26 04/21/18 13:30 Temperature Pulse Rate 93 H 92 H Respiratory Rate 23 22 23 Blood Pressure 159/69 H Pulse Oximetry 95 04/21/18 14:00 04/21/18 14:31 04/21/18 15:00 Temperature Pulse Rate 96 H 95 H 95 H Respiratory Rate 21 28 H 19 Blood Pressure 170/74 H 150/66 H 142/63 H Pulse Oximetry 93 L 93 L 93 L 04/21/18 15:30 04/21/18 16:00 04/21/18 16:30 Temperature 98.5 F Pulse Rate 92 H 91 H 90 Respiratory Rate 22 31 H 21 Blood Pressure 142/64 H 147/66 H 143/68 H Pulse Oximetry 93 L 93 L 93 L 04/21/18 17:00 04/21/18 17:30 04/21/18 18:00 Temperature Pulse Rate 91 H 92 H 93 H Respiratory Rate 25 H 21 23 Blood Pressure 156/69 H 160/80 H 175/77 H Pulse Oximetry 91 L 92 L 92 L 04/21/18 18:30 04/21/18 19:00 04/21/18 19:29 Temperature Pulse Rate 92 H 91 H 91 H Respiratory Rate 17 19 18 Blood Pressure 162/69 H 156/76 H Pulse Oximetry 93 L 96 95 04/21/18 19:30 04/21/18 20:00 04/21/18 20:30 Temperature 99.0 F Pulse Rate 91 H 91 H 91 H Respiratory Rate 18 17 18 Blood Pressure 154/67 H 154/67 H 150/66 H Pulse Oximetry 96 84 L 95 04/21/18 21:00 04/21/18 21:30 04/21/18 22:00 Temperature Pulse Rate 90 87 90 Respiratory Rate 17 17 21 Blood Pressure 149/66 H 155/68 H 158/72 H Pulse Oximetry 96 95 93 L 04/21/18 22:31 04/21/18 23:00 04/21/18 23:15 Temperature Pulse Rate 91 H 92 H Respiratory Rate 17 37 H Blood Pressure 150/66 H 155/70 H Pulse Oximetry 90 L 89 L 94 L 04/21/18 23:30 04/21/18 23:51 04/22/18 00:00 Temperature 98.6 F Pulse Rate 87 89 89 Respiratory Rate 15 14 14 Blood Pressure 158/70 H 158/67 H Pulse Oximetry 94 L 96 04/22/18 00:31 04/22/18 00:56 04/22/18 01:00 Temperature Pulse Rate 90 89 Respiratory Rate 16 20 18 Blood Pressure 128/60 Pulse Oximetry 94 L 94 L 04/22/18 01:01 04/22/18 01:31 04/22/18 02:00 Temperature Pulse Rate 88 88 91 H Respiratory Rate 19 14 17 Blood Pressure 165/72 H 148/65 H 144/67 H Pulse Oximetry 94 L 93 L 93 L 04/22/18 02:30 04/22/18 03:00 04/22/18 03:30 Temperature Pulse Rate 87 91 H 90 Respiratory Rate 14 15 15 Blood Pressure 156/67 H 151/70 H 159/71 H Pulse Oximetry 92 L 94 L 93 L 04/22/18 04:00 04/22/18 04:08 04/22/18 04:14 Temperature 98.6 F Pulse Rate 86 85 Respiratory Rate 14 15 Blood Pressure 142/65 H Pulse Oximetry 94 L 94 L 94 L 04/22/18 04:30 04/22/18 05:00 04/22/18 05:07 Temperature Pulse Rate 87 85 Respiratory Rate 18 22 20 Blood Pressure 152/66 H 152/66 H Pulse Oximetry 94 L 95 04/22/18 06:00 04/22/18 07:00 Temperature Pulse Rate 83 84 Respiratory Rate 14 Blood Pressure Pulse Oximetry Intake & Output 04/21/18 04/22/18 04/22/18 18:59 06:59 18:59 Intake Total 369 / 369 670 / 670 Output Total 0 / 0 Balance 369 / 369 670 / 670 Weight 119.3 kg Intake: IV 50 / 50 100 / 100 Zosyn 2.25 GM Premix 2.25 gm In 50 / 50 100 / 100 50 ml @ 100 mls/hr IV.SIG Q8H [facility] Rx#:[id number] Oral 240 / 240 Tube Feeding 79 / 79 570 / 570 Output: Urine 0 / 0 Other: Date of Last Bowel Movement 04/21/18 04/22/18 # Bowel Movements 2 2 Result Diagrams: 04/22/18 04:37 04/22/18 04:37 Objective Remarks: GENERAL: Patient is 67 yo on BiPAP SKIN: Warm and dry. HEAD: Normocephalic. EYES: No scleral icterus. No injection or drainage. NECK: Supple, trachea midline. No JVD or lymphadenopathy. CARDIOVASCULAR: Regular rate and rhythm without murmurs, gallops, or rubs. RESPIRATORY: Breath sounds equal bilaterally. Scattered wheezing and rhonchi GASTROINTESTINAL: Abdomen soft, non-tender, nondistended. MUSCULOSKELETAL: No cyanosis,+ edema. Neuro: Intubated, sedated. On sedation hold patient wakes up easily following commands. No focal deficit Assessment and Plan - Assessment and Plan Plan: 1. Acute respiratory failure intubated 04/15 2. s/p post cardiopulmonary arrest, asystolic event during colonoscopy 3. ESRD, on hemodialysis. 4. Leukocytosis. 5. Anemia. 6. Hypocalcemia. 7. Hypertension. 8. Diabetes mellitus. 9. COPD 10. Previous renal transplant in 2004. 11. CAD/CABG in 2003. 12. GERD 13. SVT Plan Neuro: Off all continuous sedation Monitor neuro status closely Pulm: Extubated 04/21/2018. Currently on BiPAP for desaturation Attempt BiPAP wean after hemodialysis Bronchodilators, ICU vent bundle Pulm is following- Dr. Ramirez, status post bronchoscopy 04/20, mucoid secretions removed CV: Monitor HR and BP and maintain MAP >65 mmHg. Cards is following- Dr. Arredondo. [facility] when resp status improves Echo showed EF 50-55%. On ASA, Lipitor, Imdur : Monitor renal function, I's and O's and avoid nephrotoxins. Renal is following. HD per renal ID: Continue abx on Zosyn/Vanco monitor for signs of infections ( fever, WBC) Follow up on sputum cx. Negative to date GI: On Protonix 40 mg daily. Renal diet as tolerated Heme: Monitor CBC. Endo: Transitioned from insulin infusion to SSI with accuhecks, on Prednisone 5mg daily GI prophylaxis- on Protonix 40 mg daily DVT prophylaxis- on SCD and heparin subcu Level 3 Extubated yesterday but remains critical currently requiring BiPAP. Continue ICU care due to risk of acute decompensation
[2018-04-22] MEDS: Pantoprazole Inj 40 MG Vial IV.PUSH SCH (09:49)
[2018-04-22] MEDS: predniSONE 5 MG Tablet PO SCH (09:50)
[2018-04-22] MEDS: Calcitriol 0.25 MCG Capsule PO SCH (09:50)
[2018-04-22] MEDS: Calcium Acetate 667 MG Capsule PO SCH ×2 (09:50→18:26)
[2018-04-22] MEDS: Senna/Docusate Sodium 8.6/50 MG Tablet PO SCH ×2 (10:33→21:19)
--- NOTE | 2018-04-22 11:47 | P.PNNP ---
Subjective Interval history: Patient was seen, no distress, no complaints. Patient stated he felt good today. Patient was seen on dialysis, on 3K, 350 ml/min, UF goal of 3 L. Patient extubated yesterday, currently in Bipap. Plan is to put on nasal cannula after HD. Possible cardiac cath on 04/25 if patient continues to improve from respiratory standpoint. <ZeferinoAlenadanielle - Last Filed: 04/22/18 11:43> Physical Exam Vital signs: Vital Signs 04/21/18 12:00 04/21/18 12:23 04/21/18 12:30 Temperature 98.5 F Pulse Rate 93 H 93 H 94 H Respiratory Rate 29 H 22 24 Blood Pressure 160/70 H 160/70 H 164/91 H Pulse Oximetry 91 L 91 L 91 L 04/21/18 13:00 04/21/18 13:24 04/21/18 13:26 Temperature Pulse Rate 96 H 93 H Respiratory Rate 24 23 22 Blood Pressure 161/70 H Pulse Oximetry 92 L 04/21/18 13:30 04/21/18 14:00 04/21/18 14:31 Temperature Pulse Rate 92 H 96 H 95 H Respiratory Rate 23 21 28 H Blood Pressure 159/69 H 170/74 H 150/66 H Pulse Oximetry 95 93 L 93 L 04/21/18 15:00 04/21/18 15:30 04/21/18 16:00 Temperature 98.5 F Pulse Rate 95 H 92 H 91 H Respiratory Rate 19 22 31 H Blood Pressure 142/63 H 142/64 H 147/66 H Pulse Oximetry 93 L 93 L 93 L 04/21/18 16:30 04/21/18 17:00 04/21/18 17:30 Temperature Pulse Rate 90 91 H 92 H Respiratory Rate 21 25 H 21 Blood Pressure 143/68 H 156/69 H 160/80 H Pulse Oximetry 93 L 91 L 92 L 04/21/18 18:00 04/21/18 18:30 04/21/18 19:00 Temperature Pulse Rate 93 H 92 H 91 H Respiratory Rate 23 17 19 Blood Pressure 175/77 H 162/69 H 156/76 H Pulse Oximetry 92 L 93 L 96 04/21/18 19:29 04/21/18 19:30 04/21/18 20:00 Temperature 99.0 F Pulse Rate 91 H 91 H 91 H Respiratory Rate 18 18 17 Blood Pressure 154/67 H 154/67 H Pulse Oximetry 95 96 84 L 04/21/18 20:30 04/21/18 21:00 04/21/18 21:30 Temperature Pulse Rate 91 H 90 87 Respiratory Rate 18 17 17 Blood Pressure 150/66 H 149/66 H 155/68 H Pulse Oximetry 95 96 95 04/21/18 22:00 04/21/18 22:31 04/21/18 23:00 Temperature Pulse Rate 90 91 H 92 H Respiratory Rate 21 17 37 H Blood Pressure 158/72 H 150/66 H 155/70 H Pulse Oximetry 93 L 90 L 89 L 04/21/18 23:15 04/21/18 23:30 04/21/18 23:51 Temperature Pulse Rate 87 89 Respiratory Rate 15 14 Blood Pressure 158/70 H Pulse Oximetry 94 L 94 L 04/22/18 00:00 04/22/18 00:31 04/22/18 00:56 Temperature 98.6 F Pulse Rate 89 90 Respiratory Rate 14 16 20 Blood Pressure 158/67 H 128/60 Pulse Oximetry 96 94 L 04/22/18 01:00 04/22/18 01:01 04/22/18 01:31 Temperature Pulse Rate 89 88 88 Respiratory Rate 18 19 14 Blood Pressure 165/72 H 148/65 H Pulse Oximetry 94 L 94 L 93 L 04/22/18 02:00 04/22/18 02:30 04/22/18 03:00 Temperature Pulse Rate 91 H 87 91 H Respiratory Rate 17 14 15 Blood Pressure 144/67 H 156/67 H 151/70 H Pulse Oximetry 93 L 92 L 94 L 04/22/18 03:30 04/22/18 04:00 04/22/18 04:08 Temperature 98.6 F Pulse Rate 90 86 85 Respiratory Rate 15 14 15 Blood Pressure 159/71 H 142/65 H Pulse Oximetry 93 L 94 L 94 L 04/22/18 04:14 04/22/18 04:30 04/22/18 05:00 Temperature Pulse Rate 87 85 Respiratory Rate 18 22 Blood Pressure 152/66 H 152/66 H Pulse Oximetry 94 L 94 L 95 04/22/18 05:07 04/22/18 06:00 04/22/18 07:00 Temperature Pulse Rate 83 84 Respiratory Rate 20 14 Blood Pressure Pulse Oximetry Intake & Output 04/21/18 04/22/18 04/22/18 18:59 06:59 18:59 Intake Total 369 / 369 670 / 670 Output Total 0 / 0 Balance 369 / 369 670 / 670 Weight 119.3 kg Intake: IV 50 / 50 100 / 100 Zosyn 2.25 GM Premix 2.25 gm In 50 / 50 100 / 100 50 ml @ 100 mls/hr IV.SIG Q8H [facility] Rx#:[id number] Oral 240 / 240 Tube Feeding 79 / 79 570 / 570 Output: Urine 0 / 0 Other: Date of Last Bowel Movement 04/21/18 04/22/18 # Bowel Movements 2 2 Narrative: GENERAL: no acute distress, on HD. NECK: No carotid bruits. No JVD. CARDIOVASCULAR: Regular rate and rhythm. No murmur appreciated. RESPIRATORY: On BiPAP. Clear to auscultation. Breath sounds equal bilaterally. MUSCULOSKELETAL: No clubbing or cyanosis. No edema. NEUROLOGICAL: Awake and alert. Normal speech. <Leeann Mcgarry - Last Filed: 04/22/18 11:43> Vital signs: Vital Signs 04/21/18 16:30 04/21/18 17:00 04/21/18 17:30 Temperature Pulse Rate 90 91 H 92 H Respiratory Rate 21 25 H 21 Blood Pressure 143/68 H 156/69 H 160/80 H Pulse Oximetry 93 L 91 L 92 L 04/21/18 18:00 04/21/18 18:30 04/21/18 19:00 Temperature Pulse Rate 93 H 92 H 91 H Respiratory Rate 23 17 19 Blood Pressure 175/77 H 162/69 H 156/76 H Pulse Oximetry 92 L 93 L 96 04/21/18 19:29 04/21/18 19:30 04/21/18 20:00 Temperature 99.0 F Pulse Rate 91 H 91 H 91 H Respiratory Rate 18 18 17 Blood Pressure 154/67 H 154/67 H Pulse Oximetry 95 96 84 L 04/21/18 20:30 04/21/18 21:00 04/21/18 21:30 Temperature Pulse Rate 91 H 90 87 Respiratory Rate 18 17 17 Blood Pressure 150/66 H 149/66 H 155/68 H Pulse Oximetry 95 96 95 04/21/18 22:00 04/21/18 22:31 04/21/18 23:00 Temperature Pulse Rate 90 91 H 92 H Respiratory Rate 21 17 37 H Blood Pressure 158/72 H 150/66 H 155/70 H Pulse Oximetry 93 L 90 L 89 L 04/21/18 23:15 04/21/18 23:30 04/21/18 23:51 Temperature Pulse Rate 87 89 Respiratory Rate 15 14 Blood Pressure 158/70 H Pulse Oximetry 94 L 94 L 04/22/18 00:00 04/22/18 00:31 04/22/18 00:56 Temperature 98.6 F Pulse Rate 89 90 Respiratory Rate 14 16 20 Blood Pressure 158/67 H 128/60 Pulse Oximetry 96 94 L 04/22/18 01:00 04/22/18 01:01 04/22/18 01:31 Temperature Pulse Rate 89 88 88 Respiratory Rate 18 19 14 Blood Pressure 165/72 H 148/65 H Pulse Oximetry 94 L 94 L 93 L 04/22/18 02:00 04/22/18 02:30 04/22/18 03:00 Temperature Pulse Rate 91 H 87 91 H Respiratory Rate 17 14 15 Blood Pressure 144/67 H 156/67 H 151/70 H Pulse Oximetry 93 L 92 L 94 L 04/22/18 03:30 04/22/18 04:00 04/22/18 04:08 Temperature 98.6 F Pulse Rate 90 86 85 Respiratory Rate 15 14 15 Blood Pressure 159/71 H 142/65 H Pulse Oximetry 93 L 94 L 94 L 04/22/18 04:14 04/22/18 04:30 04/22/18 05:00 Temperature Pulse Rate 87 85 Respiratory Rate 18 22 Blood Pressure 152/66 H 152/66 H Pulse Oximetry 94 L 94 L 95 04/22/18 05:07 04/22/18 06:00 04/22/18 07:00 Temperature Pulse Rate 83 84 Respiratory Rate 20 14 Blood Pressure Pulse Oximetry 04/22/18 15:00 04/22/18 15:12 Temperature Pulse Rate 90 Respiratory Rate 14 Blood Pressure Pulse Oximetry 93 L Intake & Output 04/21/18 04/22/18 04/22/18 18:59 06:59 18:59 Intake Total 369 / 369 670 / 670 Output Total 0 / 0 Balance 369 / 369 670 / 670 Weight 119.3 kg Intake: IV 50 / 50 100 / 100 Zosyn 2.25 GM Premix 2.25 gm In 50 / 50 100 / 100 50 ml @ 100 mls/hr IV.SIG Q8H [facility] Rx#:[id number] Oral 240 / 240 Tube Feeding 79 / 79 570 / 570 Output: Urine 0 / 0 Other: Date of Last Bowel Movement 04/21/18 04/22/18 # Bowel Movements 2 2 <Jairo Dixonep - Last Filed: 04/22/18 16:27> Assessment and Plan - Assessment (1) End stage renal disease Code(s): N18.6 - End stage renal disease Status: Acute Plan: Pateint with ESRD, on Home HD. Patient getting dialysis MWF while hospitalized. Patient was seen on dialysis, on 3K, 350 ml/min, UF goal of 3 L. Avoid blood draws or BP measurements in left arm due to AVF. Avoid nephrotoxic agents. (2) Hypertension Code(s): I10 - Essential (primary) hypertension Status: Acute Qualifiers: Hypertension type: essential hypertension Qualified Code(s): I10 - Essential (primary) hypertension Plan: Continue to monitor. (3) Diabetes Code(s): E11.9 - Type 2 diabetes mellitus without complications Status: Acute Qualifiers: Diabetes mellitus custodial insulin use: unspecified custodial insulin use status Plan: Monitor blood glucose.Insulin coverage to maintain blood glucose levels between 140 and 180 while hospitalized. (4) Cardiopulmonary arrest with successful resuscitation Code(s): I46.9 - Cardiac arrest, cause unspecified Status: Acute Plan: Cardiology consulted and note reviewed. Possible cardiac cath on 04/25 if patient continues to improve from a respiratory standpoint. Patient extubated yesterday. Currently on Bipap during HD and plan is to put on nasal cannula after. (5) Metabolic bone disease Code(s): E88.9 - Metabolic disorder, unspecified; M90.80 - Osteopathy in diseases classified elsewhere, unspecified site Status: Acute Plan: Sensipar has been held due to hypocalcemia. PTH level 1954, patient on Calcitriol 0.5 mcg po daily. Monitor phosphorus intermittently, patient is on PhosLo. <Leeann Mcgarry - Last Filed: 04/22/18 11:43> - Assessment (1) End stage renal disease Code(s): N18.6 - End stage renal disease Status: Acute (2) Hypertension Code(s): I10 - Essential (primary) hypertension Status: Acute Qualifiers: Hypertension type: essential hypertension Qualified Code(s): I10 - Essential (primary) hypertension (3) Diabetes Code(s): E11.9 - Type 2 diabetes mellitus without complications Status: Acute Qualifiers: Diabetes mellitus meterman insulin use: unspecified meterman insulin use status (4) Cardiopulmonary arrest with successful resuscitation Code(s): I46.9 - Cardiac arrest, cause unspecified Status: Acute (5) Metabolic bone disease Code(s): E88.9 - Metabolic disorder, unspecified; M90.80 - Osteopathy in diseases classified elsewhere, unspecified site Status: Acute - Attending Attestation patient was seen and examined. Agree with above assessment and plan. Dialyzed today. Extubated yesterday. Cardiac catheterization is planned for Wednesday. <Tramaine Dixon - Last Filed: 04/22/18 16:27>
--- NOTE | 2018-04-22 18:16 | P.PN ---
Subjective Interval history: He is alert and breathing better. on O2 3 L. Taking a diet . Used BiPAP at HS Will have dialysis. Physical Exam Vital signs: Vital Signs 04/21/18 18:30 04/21/18 19:00 04/21/18 19:29 Temperature Pulse Rate 92 H 91 H 91 H Respiratory Rate 17 19 18 Blood Pressure 162/69 H 156/76 H Pulse Oximetry 93 L 96 95 04/21/18 19:30 04/21/18 20:00 04/21/18 20:30 Temperature 99.0 F Pulse Rate 91 H 91 H 91 H Respiratory Rate 18 17 18 Blood Pressure 154/67 H 154/67 H 150/66 H Pulse Oximetry 96 84 L 95 04/21/18 21:00 04/21/18 21:30 04/21/18 22:00 Temperature Pulse Rate 90 87 90 Respiratory Rate 17 17 21 Blood Pressure 149/66 H 155/68 H 158/72 H Pulse Oximetry 96 95 93 L 04/21/18 22:31 04/21/18 23:00 04/21/18 23:15 Temperature Pulse Rate 91 H 92 H Respiratory Rate 17 37 H Blood Pressure 150/66 H 155/70 H Pulse Oximetry 90 L 89 L 94 L 04/21/18 23:30 04/21/18 23:51 04/22/18 00:00 Temperature 98.6 F Pulse Rate 87 89 89 Respiratory Rate 15 14 14 Blood Pressure 158/70 H 158/67 H Pulse Oximetry 94 L 96 04/22/18 00:31 04/22/18 00:56 04/22/18 01:00 Temperature Pulse Rate 90 89 Respiratory Rate 16 20 18 Blood Pressure 128/60 Pulse Oximetry 94 L 94 L 04/22/18 01:01 04/22/18 01:31 04/22/18 02:00 Temperature Pulse Rate 88 88 91 H Respiratory Rate 19 14 17 Blood Pressure 165/72 H 148/65 H 144/67 H Pulse Oximetry 94 L 93 L 93 L 04/22/18 02:30 04/22/18 03:00 04/22/18 03:30 Temperature Pulse Rate 87 91 H 90 Respiratory Rate 14 15 15 Blood Pressure 156/67 H 151/70 H 159/71 H Pulse Oximetry 92 L 94 L 93 L 04/22/18 04:00 04/22/18 04:08 04/22/18 04:14 Temperature 98.6 F Pulse Rate 86 85 Respiratory Rate 14 15 Blood Pressure 142/65 H Pulse Oximetry 94 L 94 L 94 L 04/22/18 04:30 04/22/18 05:00 04/22/18 05:07 Temperature Pulse Rate 87 85 Respiratory Rate 18 22 20 Blood Pressure 152/66 H 152/66 H Pulse Oximetry 94 L 95 04/22/18 06:00 04/22/18 07:00 04/22/18 15:00 Temperature Pulse Rate 83 84 90 Respiratory Rate 14 14 Blood Pressure Pulse Oximetry 04/22/18 15:12 04/22/18 16:27 Temperature Pulse Rate Respiratory Rate 30 H Blood Pressure Pulse Oximetry 93 L Intake & Output 04/21/18 04/22/18 04/22/18 18:59 06:59 18:59 Intake Total 369 / 369 670 / 670 Output Total 0 / 0 Balance 369 / 369 670 / 670 Weight 119.3 kg Intake: IV 50 / 50 100 / 100 Zosyn 2.25 GM Premix 2.25 gm In 50 / 50 100 / 100 50 ml @ 100 mls/hr IV.SIG Q8H [facility] Rx#:[id number] Oral 240 / 240 Tube Feeding 79 / 79 570 / 570 Output: Urine 0 / 0 Other: Date of Last Bowel Movement 04/21/18 04/22/18 # Bowel Movements 2 2 Narrative: GENERAL: Obese W/M in no distress SKIN: Warm and dry. HEAD: Atraumatic. Normocephalic. EYES: Pupils equal and round. No scleral icterus. No injection or drainage. ENT: No nasal bleeding or discharge. Mucous membranes pink and moist. NECK: Trachea midline. No JVD. CARDIOVASCULAR: Regular rate and rhythm. RESPIRATORY: No accessory muscle use. Few basal crackles and Breath sounds equal bilaterally. GASTROINTESTINAL: Abdomen soft, non-tender, nondistended. Hepatic and splenic margins not palpable. MUSCULOSKELETAL: Extremities without clubbing, cyanosis, but has edema. No obvious deformities. NEUROLOGICAL: Awake and alert. No obvious cranial nerve deficits. Motor grossly within normal limits. Normal speech. PSYCHIATRIC: Appropriate mood and affect. Results - Labs CBC & Chem 7: 04/22/18 04:37 04/22/18 04:37 Laboratory Results - last 24 hr 04/21/18 04/22/18 04/22/18 20:15 00:52 03:51 WBC RBC Hgb Hct MCV MCH MCHC RDW Plt Count MPV Neut % (Auto) Lymph % (Auto) [place] % (Auto) Eos % (Auto) Baso % (Auto) Neut # (Auto) Lymph # (Auto) [place] # (Auto) Eos # (Auto) Baso # (Auto) WBC Differential Differential Comment Sodium Potassium Chloride Carbon Dioxide Anion Gap BUN Creatinine Estimated GFR POC Glucose 124 H 120 H 119 H Random Glucose Calcium Total Bilirubin AST ALT Alkaline Phosphatase Total Protein Albumin 04/22/18 04/22/18 04/22/18 04:37 04:37 17:29 WBC 14.7 H RBC 3.62 L Hgb 9.9 L Hct 31.8 L MCV 87.7 MCH 27.4 MCHC 31.3 L RDW 17.8 H Plt Count 166 MPV 9.3 Neut % (Auto) 83.4 H Lymph % (Auto) 5.2 L [place] % (Auto) 8.8 H Eos % (Auto) 2.4 Baso % (Auto) 0.2 Neut # (Auto) 12.3 H Lymph # (Auto) 0.8 L [place] # (Auto) 1.3 H Eos # (Auto) 0.3 Baso # (Auto) 0.0 WBC Differential . Differential Comment Auto diff final Sodium 137 Potassium 4.5 Chloride 95 L Carbon Dioxide 22.0 Anion Gap 20 H BUN 84 H Creatinine 8.10 H Estimated GFR 7 L POC Glucose 100 Random Glucose 106 Calcium 7.7 L Total Bilirubin 0.7 AST 11 L ALT 12 Alkaline Phosphatase 98 Total Protein 6.7 Albumin 3.0 L Microbiology 04/20/18 12:15 Bronchial - Bronchial Gram Stain - Final 04/20/18 12:15 Bronchial - Bronchial Bronchial Culture - Final Rare growth normal respiratory jose Assessment and Plan - Assessment (1) Respiratory failure Code(s): J96.90 - Respiratory failure, unspecified, unspecified whether with hypoxia or hypercapnia Status: Acute (2) Metabolic bone disease Code(s): E88.9 - Metabolic disorder, unspecified; M90.80 - Osteopathy in diseases classified elsewhere, unspecified site Status: Acute (3) Supraventricular arrhythmia Code(s): I49.9 - Cardiac arrhythmia, unspecified Status: Acute (4) End stage renal disease Code(s): N18.6 - End stage renal disease Status: Acute (5) Hypertension Code(s): I10 - Essential (primary) hypertension Status: Acute (6) Diabetes Code(s): E11.9 - Type 2 diabetes mellitus without complications Status: Acute (7) End stage renal disease on dialysis Code(s): N18.6 - End stage renal disease; Z99.2 - Dependence on renal dialysis Status: Acute (8) Cardiopulmonary arrest with successful resuscitation Code(s): I46.9 - Cardiac arrest, cause unspecified Status: Acute (9) End stage renal disease on dialysis Code(s): N18.6 - End stage renal disease; Z99.2 - Dependence on renal dialysis Status: Acute - Plan #1 O2 3L N /C daytime 2. Use BiPAP at at bedtime 12/5 and FiO2 of 30% 3. Incentive spirometry every 2 hours bedside 4. Continue antibiotics as ordered 5. DuoNeb nebs 4 times daily. 6. soft diet 7. CBC BMP in a.m. 8. PT for activity 9. Dialysis as planned (5) Hypertension Qualifiers: Hypertension type: essential hypertension Qualified Code(s): I10 - Essential (primary) hypertension (6) Diabetes Qualifiers: Diabetes mellitus intermission coordinator insulin use: unspecified residential insulin use status
[2018-04-23] MEDS: Heparin - SQ 10,000 UNITS/ML Vial SQ SCH ×2 (00:48→12:34)
[2018-04-23] MEDS: Insulin NovoLIN Regular Correctional Sugar Inj SQ SCH ×6 (00:49→20:21)
[2018-04-23] MEDS: Piperacil/Tazo 2.25 GM Premix 2.25 GM/50 ML PIGGYBACK IV.SIG SCH ×3 (01:01→17:16)
--- NOTE | 2018-04-23 05:28 | XR ---
EXAM DATE: 04/23/2018 5:11 AM EST AGE/SEX: 57 years / Male INDICATIONS: Shortness of breath, possible pulmonary disease. CLINICAL DATA: This is the patient's subsequent encounter. Patient reports that signs and symptoms h ave been present for 1 week and indicates a pain score of Nonresponsive. MEDICAL/SURGICAL HISTORY: Diabetes. Cardiovascular disease. Myocardial infarction. CABG. COMPARISON: [facility], CHEST 1V SINGLE AP, 04/21/2018. . FINDINGS: Patient has been extubated with NGT removed. Persistent hazy opacities in the lower lung zones bilate rally with mild diffuse interstitial prominence. Cardiac silhouette remains significantly enlarged. R emainder of the exam is unchanged. CONCLUSION: 1. Cardiomegaly with positive fluid balance. 2. Stable probable bilateral small pleural effusions and associated airspace disease at the lung bas es. Electronically signed by: Choco Quigley MD Board Certified Radiologist 04/23/2018 5:27 AM EST
[2018-04-23 06:11] LABS: Baso % (Auto) 0.2 % (0.0-2.0); Eos # (Auto) 0.3 th/mm3 (0.0-0.4); Eos % (Auto) 2.4 % (0.0-4.0); Hemoglobin 9.1 gm/dL (13.0-17.0); Lymph % (Auto) 7.6 % (9.0-44.0); Mean Corpuscular HGB Conc 31.2 % (32.0-36.0); Mean Corpuscular Hemoglobin 26.6 pg (27.0-34.0); Mean Corpuscular Volume 85.3 fL (80.0-100.0); Mean Platelet Volume 8.7 fL (7.0-11.0); Mono # (Auto) 1.3 th/mm3 (0.0-0.9); Mono % (Auto) 10.2 % (0.0-8.0); Neut # (Auto) 10.1 th/mm3 (1.8-7.7); Neut % (Auto) 79.6 % (16.0-70.0); Platelet Count 196 th/mm3 (150-450); Red Cell Distribution Width 17.6 % (11.6-17.2); White Blood Count 12.7 th/mm3 (4.0-11.0)
[2018-04-23] MEDS: Isosorbide Mononitrate 60 MG ER 24HR Tablet (Imdur) PO SCH (06:37)
[2018-04-23 07:08] LABS: Alanine Aminotransferase 12 U/L (12-78); Alkaline Phosphatase 88 U/L (45-117); Anion Gap 11 meq/L (5-15); Aspartate Aminotransferase 9 U/L (15-37); Blood Urea Nitrogen 57 mg/dL (7-18); Calcium 7.9 mg/dL (8.5-10.1); Chloride 96 meq/L (98-107); Glomerular Filtration Rate 8 mL/min (>89); Glucose,Random 119 mg/dL (74-106); Magnesium 2.8 mg/dL (1.5-2.5); Potassium 3.9 meq/L (3.5-5.1); Sodium 138 meq/L (136-145); Total Protein 6.8 g/dL (6.4-8.2)
[2018-04-23] MEDS: Calcium Acetate 667 MG Capsule PO SCH ×4 (07:52→17:17)
[2018-04-23] MEDS: Senna/Docusate Sodium 8.6/50 MG Tablet PO SCH ×2 (08:31→20:22)
[2018-04-23] MEDS: predniSONE 5 MG Tablet PO SCH (08:39)
[2018-04-23] MEDS: Pantoprazole Inj 40 MG Vial IV.PUSH SCH (08:39)
[2018-04-23] MEDS: Calcitriol 0.25 MCG Capsule PO SCH (08:39)
--- NOTE | 2018-04-23 12:54 | P.PNCC ---
Subjective Subjective Remarks/Hospital Course: The patient is a 57-year-old male with multiple medical comorbidities which include end-stage renal disease, on hemodialysis, being followed by Dr. Vogel, status post renal transplant in 2004, hypertension, diabetes mellitus, coronary artery disease with previous coronary artery bypass grafting in 2003. The patient was getting his colonoscopy and while being sedated, he had an asystolic episode. He received 2 rounds of epinephrine and chest compressions performed. He was initially intubated, and on arrival to the ER, he was extubated. The patient was awake, alert, and oriented. He does not recall anything that happened. He reports mild chest discomfort on the right side of his chest wall due to chest compressions. No other complaints were reported. He denies any shortness of breath, orthopnea, PND, or edema of lower extremities. Also, he denies any cough, wheezing or constitutional symptoms 04/15 Reconsult for resp distress. Patient reports SOB on 4L oxygen, tachycardic and tachypneic. s/p HD earlier today with removal 2.8L. CXR from yesterday increasing density left lung base. Afebrile. 04/16 Patient was intubated yesterday sedated with Diprivan. On PRVC with PEEP:5 and FIO2 50%. Afebrile. 04/17 Patient remains intubated and sedated. Afebrile. 04/18 Patient remains sedated and intubated. For HD today. Tolerated CPAP for several hrs yesterday. 04/19 Patient remains sedated and intubated. s/p HD yesterday with removal 2.5L. Afebrile. On Insulin drip 3u/hr 04/20 Patient is on low dose Diprivan infusion (10mics) awake, on insulin drip 2u/ hr. Afebrile. 04/21: Currently off all sedation wakes up easily follows commands. Off insulin infusion yesterday. FiO2 at 60% I have increased PEEP to 8 and wean the FiO2 to 50. Initiate CPAP trial for possible extubation 04/22: Extubated yesterday tolerated well initially, desaturated yesterday evening yesterday placed on BiPAP. Currently breathing comfortably on BiPAP. Plan for hemodialysis today. Follows commands 04/23: No acute events overnight. Continues on 6 LPM/NC Objective Vital Signs / I&O: Vital Signs 04/22/18 12:45 04/22/18 13:00 04/22/18 13:30 Temperature Pulse Rate 89 85 87 Respiratory Rate 15 20 15 Blood Pressure 136/63 120/58 L 128/62 Pulse Oximetry 04/22/18 13:36 04/22/18 14:00 04/22/18 14:26 Temperature Pulse Rate 91 H 93 H 92 H Respiratory Rate 14 25 H 19 Blood Pressure 135/73 131/72 Pulse Oximetry 93 L 04/22/18 15:00 04/22/18 15:12 04/22/18 16:00 Temperature 98.1 F Pulse Rate 85 92 H Respiratory Rate 15 20 Blood Pressure 142/65 H 147/67 H Pulse Oximetry 88 L 93 L 88 L 04/22/18 16:27 04/22/18 17:00 04/22/18 18:00 Temperature Pulse Rate 91 H 93 H Respiratory Rate 30 H 16 21 Blood Pressure 157/72 H 138/56 L Pulse Oximetry 93 L 93 L 04/22/18 19:00 04/22/18 20:00 04/22/18 21:00 Temperature 99.2 F Pulse Rate 91 H 91 H 90 Respiratory Rate 9 L 19 15 Blood Pressure 133/63 132/65 126/62 Pulse Oximetry 95 94 L 94 L 04/22/18 21:25 04/22/18 22:00 04/22/18 22:36 Temperature Pulse Rate 91 H 91 H Respiratory Rate 22 19 18 Blood Pressure 129/65 Pulse Oximetry 93 L 94 L 04/22/18 23:00 04/22/18 23:15 04/23/18 00:00 Temperature 99.0 F Pulse Rate 95 H 96 H Respiratory Rate 14 18 18 Blood Pressure 123/62 Pulse Oximetry 93 L 90 L 04/23/18 00:27 04/23/18 00:38 04/23/18 00:57 Temperature Pulse Rate 89 Respiratory Rate 11 L Blood Pressure 142/68 H Pulse Oximetry 95 100 04/23/18 01:00 04/23/18 02:00 04/23/18 03:00 Temperature Pulse Rate 87 86 83 Respiratory Rate 12 16 17 Blood Pressure 150/70 H 143/67 H 140/60 Pulse Oximetry 99 99 97 04/23/18 03:23 04/23/18 04:00 04/23/18 04:10 Temperature 98.4 F Pulse Rate 84 86 Respiratory Rate 16 18 Blood Pressure 129/59 L Pulse Oximetry 98 97 04/23/18 05:00 04/23/18 06:00 04/23/18 06:37 Temperature Pulse Rate 80 88 Respiratory Rate 22 Blood Pressure Pulse Oximetry 04/23/18 07:00 04/23/18 08:00 04/23/18 08:24 Temperature 97.5 F L Pulse Rate 89 87 87 Respiratory Rate 15 17 15 Blood Pressure 166/77 H 156/70 H Pulse Oximetry 86 L 93 L 04/23/18 09:00 04/23/18 10:00 04/23/18 11:34 Temperature Pulse Rate 91 H 92 H 88 Respiratory Rate 15 15 Blood Pressure 177/77 H Pulse Oximetry 87 L Intake & Output 04/22/18 04/23/18 04/23/18 18:59 06:59 18:59 Intake Total 600 / 600 410 / 410 50 / 50 Output Total 2500 / 2500 Balance -1900 / -1900 410 / 410 50 / 50 Weight 120.1 kg Intake: IV 50 / 50 50 / 50 50 / 50 Zosyn 2.25 GM Premix 2.25 gm In 50 / 50 50 / 50 50 / 50 50 ml @ 100 mls/hr IV.SIG Q8H [facility] Rx#:[id number] Oral 550 / 550 360 / 360 Output: Urine 0 / 0 Hemodialysis Amount 2500 / 2500 Other: # Voids 0 Date of Last Bowel Movement 04/22/18 04/22/18 04/23/18 # Bowel Movements 2 # Incontinent Bowel Movements 2 Result Diagrams: 04/23/18 05:22 04/23/18 05:22 Other Results: Laboratory Results WBC 12.7 th/mm3 (4.0-11.0) H 04/23/18 05:22 RBC 3.40 mil/mm3 (4.50-5.90) L 04/23/18 05:22 Hgb 9.1 gm/dL (13.0-17.0) L 04/23/18 05:22 Hct 29.0 % (39.0-51.0) L 04/23/18 05:22 MCV 85.3 fL (80.0-100.0) 04/23/18 05:22 MCH 26.6 pg (27.0-34.0) L 04/23/18 05:22 MCHC 31.2 % (32.0-36.0) L 04/23/18 05:22 RDW 17.6 % (11.6-17.2) H 04/23/18 05:22 Plt Count 196 th/mm3 (150-450) 04/23/18 05:22 MPV 8.7 fL (7.0-11.0) 04/23/18 05:22 Prelim Diff (Auto) Slide review pending 04/11/18 10:37 Neut % (Auto) 79.6 % (16.0-70.0) H 04/23/18 05:22 Lymph % (Auto) 7.6 % (9.0-44.0) L 04/23/18 05:22 Kaufman % (Auto) 10.2 % (0.0-8.0) H 04/23/18 05:22 Eos % (Auto) 2.4 % (0.0-4.0) 04/23/18 05:22 Baso % (Auto) 0.2 % (0.0-2.0) 04/23/18 05:22 Neut # (Auto) 10.1 th/mm3 (1.8-7.7) H 04/23/18 05:22 Lymph # (Auto) 1.0 th/mm3 (1.0-4.8) 04/23/18 05:22 Kaufman # (Auto) 1.3 th/mm3 (0.0-0.9) H 04/23/18 05:22 Eos # (Auto) 0.3 th/mm3 (0.0-0.4) 04/23/18 05:22 Baso # (Auto) 0.0 th/mm3 (0.0-0.2) 04/23/18 05:22 WBC Differential . 04/23/18 05:22 Seg Neuts % (Manual) 79 % (16-70) H 04/11/18 10:37 Band Neuts % (Manual) 4 % (0-6) 04/11/18 10:37 Lymphocytes % (Manual) 7 % (9-44) L 04/11/18 10:37 Monocytes % (Manual) 6 % (0-8) 04/11/18 10:37 Eosinophils % (Manual) 2 % (0-4) 04/11/18 10:37 Metamyelocytes % (Man) 2 % (0-1) H 04/11/18 10:37 Abs Neuts (Manual) 14.5 th/mm3 (1.8-7.7) H 04/11/18 10:37 Differential Comment Auto diff final 04/23/18 05:22 Platelet Estimate Normal (Normal) 04/11/18 10:37 Platelet Morphology Normal (Normal) 04/11/18 10:37 PT 12.1 sec (9.8-11.6) H 04/11/18 10:37 INR 1.2 Ratio 04/11/18 10:37 APTT 24.5 sec (23.4-31.7) 04/11/18 10:37 Puncture Site Right radial 04/20/18 04:31 Patient Temperature 98.6 04/20/18 04:31 O2 Saturation 92 % (90-100) 04/20/18 04:31 ABG pH 7.39 (7.380-7.420) 04/20/18 04:31 ABG pCO2 41 mmHg (38-42) 04/20/18 04:31 ABG pO2 81 mmHG (61-120) 04/20/18 04:31 ABG HCO3 24 mmol/L (22-26) 04/20/18 04:31 ABG O2 Content 12.6 Vol % (12.0-20.0) 04/20/18 04:31 ABG Base Excess 0.0 mmol/L (-2-2) 04/20/18 04:31 ABG Methemoglobin 1.9 % (0-2) 04/20/18 04:31 Zeferino Test Present 04/20/18 04:31 Hemoglobin 9.6 G/DL (12.0-16.0) L 04/20/18 04:31 Carboxyhemoglobin 1.2 % (0-4) 04/20/18 04:31 O2 Delivery Device Ventilator 04/20/18 04:31 Vent Setting Prvc/ac 18, vt 550 04/20/18 04:31 Inspired O2 40 % 04/20/18 04:31 Critical Value No 04/20/18 04:31 Sodium 138 meq/L (136-145) 04/23/18 05:22 Potassium 3.9 meq/L (3.5-5.1) 04/23/18 05:22 Chloride 96 meq/L (98-107) L 04/23/18 05:22 Carbon Dioxide 31.0 meq/L (21.0-32.0) D 04/23/18 05:22 Anion Gap 11 meq/L (5-15) 04/23/18 05:22 BUN 57 mg/dL (7-18) H 04/23/18 05:22 Creatinine 6.76 mg/dL (0.60-1.30) H 04/23/18 05:22 Estimated GFR 8 mL/min (>89) L 04/23/18 05:22 POC Glucose 181 mg/dl (68-110) H 04/23/18 11:24 Random Glucose 119 mg/dL (74-106) H 04/23/18 05:22 Calcium 7.9 mg/dL (8.5-10.1) L 04/23/18 05:22 Calcium Adj for Albumin 8.3 mg/dL (8.5-10.1) L 04/21/18 05:26 Phosphorus 6.8 mg/dL (2.5-4.9) H 04/19/18 05:39 Magnesium 2.8 mg/dL (1.5-2.5) H 04/23/18 05:22 Total Bilirubin 0.5 mg/dL (0.2-1.0) 04/23/18 05:22 AST 9 U/L (15-37) L 04/23/18 05:22 ALT 12 U/L (12-78) 04/23/18 05:22 Alkaline Phosphatase 88 U/L (45-117) 04/23/18 05:22 Total Creatine Kinase 94 U/L (39-308) 04/11/18 10:37 Troponin I 0.12 ng/mL (0.02-0.05) H 04/14/18 07:18 B-Natriuretic Peptide 1680 pg/mL (0-100) H 04/11/18 10:37 Total Protein 6.8 g/dL (6.4-8.2) 04/23/18 05:22 Albumin 3.0 g/dL (3.4-5.0) L 04/23/18 05:22 PTH Intact 1955.5 pg/mL (12.4-76.8) H 04/18/18 06:50 Nasal Screen MRSA (PCR) Not detected (Negative) 04/11/18 13:15 Hepatitis A IgM Ab Nonreactive (Nonreactive) 04/11/18 14:08 Hep Bs Antigen Nonreactive (Nonreactive) 04/11/18 14:08 Hep B Core IgM Ab Nonreactive (Nonreactive) 04/11/18 14:08 Hep C IgG Ab Nonreactive (Nonreactive) 04/11/18 14:08 Impressions Chest CTA 04/12/18 00:00 CONCLUSION: 1. No CT evidence for pulmonary artery embolism as questioned. 2. Cardiomegaly with trace bilateral pleural effusions and mild airspace consolidation at the lung bases which may reflect compressive atelectasis. Differential considerations include aspiration in the appropriate clinical setting. 3. Trace perihepatic ascites fluid. Chest X-Ray 04/23/18 06:00 CONCLUSION: 1. Cardiomegaly with positive fluid balance. 2. Stable probable bilateral small pleural effusions and associated airspace disease at the lung bases. Objective Remarks: GENERAL: Patient is 67 yo male currently on 6LPM/NC in no acute distress SKIN: Warm and dry. HEAD: Normocephalic. EYES: No scleral icterus. No injection or drainage. NECK: Supple, trachea midline. No JVD or lymphadenopathy. CARDIOVASCULAR: Regular rate and rhythm without murmurs, gallops, or rubs. RESPIRATORY: Breath sounds equal bilaterally. Scattered coarse rhonchi, slightly cleared with coughing GASTROINTESTINAL: Abdomen soft, non-tender, nondistended. MUSCULOSKELETAL: No cyanosis,+ edema. Neuro: Intubated, sedated. On sedation hold patient wakes up easily following commands. No focal deficit Assessment and Plan - Assessment and Plan Plan: 1. Acute respiratory failure intubated 04/15 2. s/p post cardiopulmonary arrest, asystolic event during colonoscopy 3. ESRD, on hemodialysis. 4. Leukocytosis. 5. Anemia. 6. Hypocalcemia. 7. Hypertension. 8. Diabetes mellitus. 9. COPD 10. Previous renal transplant in 2004. 11. CAD/CABG in 2003. 12. GERD 13. SVT Plan Neuro: Off all continuous sedation Monitor neuro status closely Pulm: Extubated 04/21/2018. Currently on BiPAP for desaturation Continue BiPAP at Bronchodilators, ICU vent bund Pulm is following- Dr. Ramirez, status post bronchoscopy 04/20, mucoid secretions removed CV: Monitor HR and BP and maintain MAP >65 mmHg. Cards is following- Dr. Arredondo. [facility] when resp status improves Echo showed EF 50-55%. On ASA, Lipitor, Imdur : Monitor renal function, I's and O's and avoid nephrotoxins. Renal is following. HD per renal ID: Continue abx on Zosyn/Vanco monitor for signs of infections ( fever, WBC) Follow up on sputum cx. Negative to date GI: On Protonix 40 mg daily. Renal diet as tolerated Heme: Monitor CBC. Endo: Transitioned from insulin infusion to SSI with accuhecks, on Prednisone 5mg daily GI prophylaxis- on Protonix 40 mg daily DVT prophylaxis- on SCD and heparin subcu Level 3 [id number] 04/21 but remains critical currently requiring BiPAP. Continue ICU care due to risk of acute decompensation Code Status: Full Discussed Condition With: Patient and AEROSPACE PROJECT MANAGER at bedside
--- NOTE | 2018-04-23 12:58 | P.PNNP ---
Subjective Interval history: Patient remains short of breath and cough, hemodialysis done yesterday Physical Exam Vital signs: Vital Signs 04/22/18 13:00 04/22/18 13:30 04/22/18 13:36 Temperature Pulse Rate 85 87 91 H Respiratory Rate 20 15 14 Blood Pressure 120/58 L 128/62 135/73 Pulse Oximetry 04/22/18 14:00 04/22/18 14:26 04/22/18 15:00 Temperature Pulse Rate 93 H 92 H 85 Respiratory Rate 25 H 19 15 Blood Pressure 131/72 142/65 H Pulse Oximetry 93 L 88 L 04/22/18 15:12 04/22/18 16:00 04/22/18 16:27 Temperature 98.1 F Pulse Rate 92 H Respiratory Rate 20 30 H Blood Pressure 147/67 H Pulse Oximetry 93 L 88 L 04/22/18 17:00 04/22/18 18:00 04/22/18 19:00 Temperature Pulse Rate 91 H 93 H 91 H Respiratory Rate 16 21 9 L Blood Pressure 157/72 H 138/56 L 133/63 Pulse Oximetry 93 L 93 L 95 04/22/18 20:00 04/22/18 21:00 04/22/18 21:25 Temperature 99.2 F Pulse Rate 91 H 90 91 H Respiratory Rate 19 15 22 Blood Pressure 132/65 126/62 Pulse Oximetry 94 L 94 L 93 L 04/22/18 22:00 04/22/18 22:36 04/22/18 23:00 Temperature Pulse Rate 91 H 95 H Respiratory Rate 19 18 14 Blood Pressure 129/65 123/62 Pulse Oximetry 94 L 93 L 04/22/18 23:15 04/23/18 00:00 04/23/18 00:27 Temperature 99.0 F Pulse Rate 96 H Respiratory Rate 18 18 Blood Pressure Pulse Oximetry 90 L 95 04/23/18 00:38 04/23/18 00:57 04/23/18 01:00 Temperature Pulse Rate 89 87 Respiratory Rate 11 L 12 Blood Pressure 142/68 H 150/70 H Pulse Oximetry 100 99 04/23/18 02:00 04/23/18 03:00 04/23/18 03:23 Temperature Pulse Rate 86 83 84 Respiratory Rate 16 17 16 Blood Pressure 143/67 H 140/60 Pulse Oximetry 99 97 04/23/18 04:00 04/23/18 04:10 04/23/18 05:00 Temperature 98.4 F Pulse Rate 86 80 Respiratory Rate 18 Blood Pressure 129/59 L Pulse Oximetry 98 97 04/23/18 06:00 04/23/18 06:37 04/23/18 07:00 Temperature Pulse Rate 88 89 Respiratory Rate 22 15 Blood Pressure 166/77 H Pulse Oximetry 04/23/18 08:00 04/23/18 08:24 04/23/18 09:00 Temperature 97.5 F L Pulse Rate 87 87 91 H Respiratory Rate 17 15 15 Blood Pressure 156/70 H 177/77 H Pulse Oximetry 86 L 93 L 87 L 04/23/18 10:00 04/23/18 11:00 04/23/18 11:34 Temperature Pulse Rate 93 H 87 88 Respiratory Rate 21 11 L 15 Blood Pressure 159/76 H 165/74 H Pulse Oximetry 88 L 04/23/18 12:00 04/23/18 12:40 Temperature 98.2 F Pulse Rate 91 H 88 Respiratory Rate 24 15 Blood Pressure 187/79 H 193/78 H Pulse Oximetry Intake & Output 04/22/18 04/23/18 04/23/18 18:59 06:59 18:59 Intake Total 600 / 600 410 / 410 50 / 50 Output Total 2500 / 2500 Balance -1900 / -1900 410 / 410 50 / 50 Weight 120.1 kg Intake: IV 50 / 50 50 / 50 50 / 50 Zosyn 2.25 GM Premix 2.25 gm In 50 / 50 50 / 50 50 / 50 50 ml @ 100 mls/hr IV.SIG Q8H [facility] Rx#:[id number] Oral 550 / 550 360 / 360 Output: Urine 0 / 0 Hemodialysis Amount 2500 / 2500 Other: # Voids 0 Date of Last Bowel Movement 04/22/18 04/22/18 04/23/18 # Bowel Movements 2 # Incontinent Bowel Movements 2 Narrative: GENERAL: Obese W/M in no distress SKIN: Warm and dry. HEAD: Atraumatic. Normocephalic. EYES: Pupils equal and round. No scleral icterus. No injection or drainage. ENT: No nasal bleeding or discharge. Mucous membranes pink and moist. NECK: Trachea midline. No JVD. CARDIOVASCULAR: Regular rate and rhythm. RESPIRATORY: No accessory muscle use. Few basal crackles and Breath sounds equal bilaterally. GASTROINTESTINAL: Abdomen soft, non-tender, nondistended. Hepatic and splenic margins not palpable. MUSCULOSKELETAL: Extremities without clubbing, cyanosis, but has edema. No obvious deformities. NEUROLOGICAL: Awake and alert. No obvious cranial nerve deficits. Motor grossly within normal limits. Normal speech. PSYCHIATRIC: Appropriate mood and affect. Assessment and Plan - Assessment (1) End stage renal disease Code(s): N18.6 - End stage renal disease Status: Acute Plan: Pateint with ESRD, on Home HD. Patient getting dialysis MWF while hospitalized. Hemodialysis done yesterday 3 L removed Patient has hypertension, hydralazine 25 mg 3 times daily added Right arm small phlebitis continue to observe. (2) Hypertension Code(s): I10 - Essential (primary) hypertension Status: Acute Qualifiers: Hypertension type: essential hypertension Qualified Code(s): I10 - Essential (primary) hypertension Plan: Continue to monitor. (3) Diabetes Code(s): E11.9 - Type 2 diabetes mellitus without complications Status: Acute Qualifiers: Diabetes mellitus intermediate project manager insulin use: unspecified intermediate project manager insulin use status Plan: Monitor blood glucose.Insulin coverage to maintain blood glucose levels between 140 and 180 while hospitalized. (4) Cardiopulmonary arrest with successful resuscitation Code(s): I46.9 - Cardiac arrest, cause unspecified Status: Acute Plan: Cardiology consulted and note reviewed. Possible cardiac cath on 04/25 if patient continues to improve from a respiratory standpoint. Patient extubated yesterday. Currently on Bipap during HD and plan is to put on nasal cannula after. (5) Metabolic bone disease Code(s): E88.9 - Metabolic disorder, unspecified; M90.80 - Osteopathy in diseases classified elsewhere, unspecified site Status: Acute Plan: Sensipar has been held due to hypocalcemia. PTH level 1954, patient on Calcitriol 0.5 mcg po daily. Monitor phosphorus intermittently, patient is on PhosLo.
[2018-04-23] MEDS: hydrALAZINE 25 MG Tablet PO SCH ×3 (13:24→17:16)
[2018-04-23] MEDS ORDERED: Morphine Inj 4 MG/ML Vial IV.PUSH ONE (23:53)
[2018-04-24] MEDS: Insulin NovoLIN Regular Correctional Sugar Inj SQ SCH ×6 (00:57→21:03)
[2018-04-24] MEDS: Heparin - SQ 10,000 UNITS/ML Vial SQ SCH ×2 (00:58→12:00)
[2018-04-24] MEDS: Piperacil/Tazo 2.25 GM Premix 2.25 GM/50 ML PIGGYBACK IV.SIG SCH ×3 (01:00→17:05)
[2018-04-24 06:33] LABS: Baso % (Auto) 0.2 % (0.0-2.0); Eos # (Auto) 0.3 th/mm3 (0.0-0.4); Eos % (Auto) 2.5 % (0.0-4.0); Hematocrit 27.8 % (39.0-51.0); Hemoglobin 8.7 gm/dL (13.0-17.0); Lymph # (Auto) 0.9 th/mm3 (1.0-4.8); Lymph % (Auto) 7.2 % (9.0-44.0); Mean Corpuscular HGB Conc 31.4 % (32.0-36.0); Mean Corpuscular Hemoglobin 27.4 pg (27.0-34.0); Mean Corpuscular Volume 87.5 fL (80.0-100.0); Mean Platelet Volume 8.4 fL (7.0-11.0); Mono # (Auto) 1.3 th/mm3 (0.0-0.9); Mono % (Auto) 9.8 % (0.0-8.0); Neut # (Auto) 10.4 th/mm3 (1.8-7.7); Neut % (Auto) 80.3 % (16.0-70.0); Platelet Count 191 th/mm3 (150-450); Red Blood Count 3.18 mil/mm3 (4.50-5.90); Red Cell Distribution Width 17.5 % (11.6-17.2)
[2018-04-24 06:58] LABS: Magnesium 2.8 mg/dL (1.5-2.5)
[2018-04-24 07:06] LABS: Phosphorus 9.2 mg/dL (2.5-4.9)
[2018-04-24] MEDS: Isosorbide Mononitrate 60 MG ER 24HR Tablet (Imdur) PO SCH (07:35)
[2018-04-24] MEDS: Senna/Docusate Sodium 8.6/50 MG Tablet PO SCH ×2 (08:55→20:30)
[2018-04-24] MEDS: Pantoprazole Inj 40 MG Vial IV.PUSH SCH (09:24)
[2018-04-24] MEDS: Calcitriol 0.25 MCG Capsule PO SCH (09:24)
[2018-04-24] MEDS: hydrALAZINE 25 MG Tablet PO SCH ×3 (09:24→17:05)
[2018-04-24] MEDS: Calcium Acetate 667 MG Capsule PO SCH ×3 (09:24→17:05)
[2018-04-24] MEDS: predniSONE 5 MG Tablet PO SCH (09:25)
--- NOTE | 2018-04-24 11:34 | P.PNNP ---
Subjective Interval history: Patient on O2 Physical Exam Vital signs: Vital Signs 04/23/18 11:34 04/23/18 12:00 04/23/18 12:40 Temperature 98.2 F Pulse Rate 88 91 H 88 Respiratory Rate 15 24 15 Blood Pressure 187/79 H 193/78 H Pulse Oximetry 04/23/18 13:00 04/23/18 14:00 04/23/18 14:25 Temperature Pulse Rate 87 91 H 89 Respiratory Rate 12 20 20 Blood Pressure 174/81 H 184/84 H 184/83 H Pulse Oximetry 04/23/18 14:59 04/23/18 15:00 04/23/18 16:00 Temperature Pulse Rate 92 H 94 H 93 H Respiratory Rate 17 25 H 18 Blood Pressure 178/71 H 184/69 H 176/72 H Pulse Oximetry 92 L 91 L 87 L 04/23/18 17:00 04/23/18 18:00 04/23/18 19:00 Temperature 98.8 F Pulse Rate 89 93 H 89 Respiratory Rate 20 26 H 14 Blood Pressure 173/83 H 186/80 H 152/68 H Pulse Oximetry 87 L 90 L 04/23/18 19:06 04/23/18 19:40 04/23/18 20:00 Temperature Pulse Rate 88 Respiratory Rate 20 20 18 Blood Pressure 177/73 H Pulse Oximetry 82 L 04/23/18 20:05 04/23/18 21:00 04/23/18 22:00 Temperature Pulse Rate 87 95 H 93 H Respiratory Rate 18 37 H 15 Blood Pressure 153/95 H 163/70 H Pulse Oximetry 89 L 95 04/23/18 23:00 04/24/18 00:00 04/24/18 00:10 Temperature 98.3 F Pulse Rate 93 H 91 H Respiratory Rate 17 20 16 Blood Pressure 163/76 H 173/75 H Pulse Oximetry 93 L 04/24/18 01:00 04/24/18 01:25 04/24/18 01:41 Temperature Pulse Rate 89 Respiratory Rate 16 14 Blood Pressure 177/88 H Pulse Oximetry 98 95 04/24/18 02:00 04/24/18 03:00 04/24/18 03:07 Temperature 98.2 F Pulse Rate 91 H 84 83 Respiratory Rate 18 11 L 17 Blood Pressure 173/73 H 165/63 H Pulse Oximetry 99 99 04/24/18 04:00 04/24/18 04:15 04/24/18 05:00 Temperature Pulse Rate 84 83 Respiratory Rate 10 L 13 Blood Pressure 169/74 H 157/76 H Pulse Oximetry 97 99 97 04/24/18 06:00 04/24/18 07:00 04/24/18 08:00 Temperature 97.8 F Pulse Rate 81 80 82 Respiratory Rate 17 8 L 16 Blood Pressure 167/72 H 152/70 H 152/74 H Pulse Oximetry 96 04/24/18 08:45 04/24/18 08:47 04/24/18 09:00 Temperature Pulse Rate 79 80 Respiratory Rate 10 L 14 Blood Pressure 156/88 H Pulse Oximetry 97 98 04/24/18 10:00 Temperature Pulse Rate 109 H Respiratory Rate Blood Pressure Pulse Oximetry Intake & Output 04/23/18 04/24/18 04/24/18 18:59 06:59 18:59 Intake Total 580 / 580 530 / 530 50 / 50 Output Total 0 / 0 Balance 580 / 580 530 / 530 50 / 50 Weight 122 kg Intake: IV 100 / 100 50 / 50 50 / 50 Zosyn 2.25 GM Premix 2.25 gm In 100 / 100 50 / 50 50 / 50 50 ml @ 100 mls/hr IV.SIG Q8H [facility] Rx#:[id number] Oral 480 / 480 480 / 480 Output: Urine 0 / 0 Other: Date of Last Bowel Movement 04/23/18 04/23/18 04/24/18 # Bowel Movements 1 1 Narrative: GENERAL: Obese W/M in no distress SKIN: Warm and dry. HEAD: Atraumatic. Normocephalic. EYES: Pupils equal and round. No scleral icterus. No injection or drainage. ENT: No nasal bleeding or discharge. Mucous membranes pink and moist. NECK: Trachea midline. No JVD. CARDIOVASCULAR: Regular rate and rhythm. RESPIRATORY: No accessory muscle use. Few basal crackles and Breath sounds equal bilaterally. GASTROINTESTINAL: Abdomen soft, non-tender, nondistended. Hepatic and splenic margins not palpable. MUSCULOSKELETAL: Extremities without clubbing, cyanosis, but has edema. No obvious deformities. NEUROLOGICAL: Awake and alert. No obvious cranial nerve deficits. Motor grossly within normal limits. Normal speech. PSYCHIATRIC: Appropriate mood and affect. Assessment and Plan - Assessment (1) End stage renal disease Code(s): N18.6 - End stage renal disease Status: Acute Plan: Pateint with ESRD, on Home HD. Patient getting dialysis MWF while hospitalized. Hemodialysis done Wednesday 3 L removed Patient has hypertension, hydralazine 25 mg 3 times daily added blood pressure is better Right arm small phlebitis continue to observe. Dr. Dixon to follow (2) Hypertension Code(s): I10 - Essential (primary) hypertension Status: Acute Qualifiers: Hypertension type: essential hypertension Qualified Code(s): I10 - Essential (primary) hypertension Plan: Continue to monitor. (3) Diabetes Code(s): E11.9 - Type 2 diabetes mellitus without complications Status: Acute Qualifiers: Diabetes mellitus terminal worker insulin use: unspecified terminal worker insulin use status Plan: Monitor blood glucose.Insulin coverage to maintain blood glucose levels between 140 and 180 while hospitalized. (4) Cardiopulmonary arrest with successful resuscitation Code(s): I46.9 - Cardiac arrest, cause unspecified Status: Acute Plan: Cardiology consulted and note reviewed. Possible cardiac cath on 04/25 if patient continues to improve from a respiratory standpoint. Patient extubated yesterday. Currently on Bipap during HD and plan is to put on nasal cannula after. (5) Metabolic bone disease Code(s): E88.9 - Metabolic disorder, unspecified; M90.80 - Osteopathy in diseases classified elsewhere, unspecified site Status: Acute Plan: Sensipar has been held due to hypocalcemia. PTH level 1954, patient on Calcitriol 0.5 mcg po daily. Monitor phosphorus intermittently, patient is on PhosLo.
[2018-04-24] MEDS ORDERED: Vancomycin Consult Pharmacy OTHER PRN (12:58)
--- NOTE | 2018-04-24 13:14 | P.PNCC ---
Subjective Subjective Remarks/Hospital Course: The patient is a 57-year-old male with multiple medical comorbidities which include end-stage renal disease, on hemodialysis, being followed by Dr. Vogel, status post renal transplant in 2004, hypertension, diabetes mellitus, coronary artery disease with previous coronary artery bypass grafting in 2003. The patient was getting his colonoscopy and while being sedated, he had an asystolic episode. He received 2 rounds of epinephrine and chest compressions performed. He was initially intubated, and on arrival to the ER, he was extubated. The patient was awake, alert, and oriented. He does not recall anything that happened. He reports mild chest discomfort on the right side of his chest wall due to chest compressions. No other complaints were reported. He denies any shortness of breath, orthopnea, PND, or edema of lower extremities. Also, he denies any cough, wheezing or constitutional symptoms 04/15 Reconsult for resp distress. Patient reports SOB on 4L oxygen, tachycardic and tachypneic. s/p HD earlier today with removal 2.8L. CXR from yesterday increasing density left lung base. Afebrile. 04/16 Patient was intubated yesterday sedated with Diprivan. On PRVC with PEEP:5 and FIO2 50%. Afebrile. 04/17 Patient remains intubated and sedated. Afebrile. 04/18 Patient remains sedated and intubated. For HD today. Tolerated CPAP for several hrs yesterday. 04/19 Patient remains sedated and intubated. s/p HD yesterday with removal 2.5L. Afebrile. On Insulin drip 3u/hr 04/20 Patient is on low dose Diprivan infusion (10mics) awake, on insulin drip 2u/ hr. Afebrile. 04/21: Currently off all sedation wakes up easily follows commands. Off insulin infusion yesterday. FiO2 at 60% I have increased PEEP to 8 and wean the FiO2 to 50. Initiate CPAP trial for possible extubation 04/22: Extubated yesterday tolerated well initially, desaturated yesterday evening yesterday placed on BiPAP. Currently breathing comfortably on BiPAP. Plan for hemodialysis today. Follows commands 04/23: No acute events overnight. Continues on 6 LPM/NC 04/24: O2 requirements continue to decrease patient currently on 4 L/min O2 nasal cannula with O2 saturation of 94% patient continues on scheduled dosing of duo nebs patient tolerating BiPAP at night while sleeping. Erythematous area on right and antecubital fossa area remains unchanged white count still remains slightly elevated. Blood cultures x2 ordered, Vancomycin increased 2 GM with dialysis , dose adjusted for weight renal dosing. Pharmacy consulted for management. Patient tolerating p.o. diet, plan for possible cardiac catheterization in a.m. will be made n.p.o. except meds tonight. Objective Vital Signs / I&O: Vital Signs 04/23/18 14:00 04/23/18 14:25 04/23/18 14:59 Temperature Pulse Rate 91 H 89 92 H Respiratory Rate 20 20 17 Blood Pressure 184/84 H 184/83 H 178/71 H Pulse Oximetry 92 L 04/23/18 15:00 04/23/18 16:00 04/23/18 17:00 Temperature Pulse Rate 94 H 93 H 89 Respiratory Rate 25 H 18 20 Blood Pressure 184/69 H 176/72 H 173/83 H Pulse Oximetry 91 L 87 L 87 L 04/23/18 18:00 04/23/18 19:00 04/23/18 19:06 Temperature 98.8 F Pulse Rate 93 H 89 Respiratory Rate 26 H 14 20 Blood Pressure 186/80 H 152/68 H Pulse Oximetry 90 L 04/23/18 19:40 04/23/18 20:00 04/23/18 20:05 Temperature Pulse Rate 88 87 Respiratory Rate 20 18 18 Blood Pressure 177/73 H Pulse Oximetry 82 L 89 L 04/23/18 21:00 04/23/18 22:00 04/23/18 23:00 Temperature Pulse Rate 95 H 93 H 93 H Respiratory Rate 37 H 15 17 Blood Pressure 153/95 H 163/70 H 163/76 H Pulse Oximetry 95 93 L 04/24/18 00:00 04/24/18 00:10 04/24/18 01:00 Temperature 98.3 F Pulse Rate 91 H 89 Respiratory Rate 20 16 16 Blood Pressure 173/75 H 177/88 H Pulse Oximetry 98 04/24/18 01:25 04/24/18 01:41 04/24/18 02:00 Temperature Pulse Rate 91 H Respiratory Rate 14 18 Blood Pressure 173/73 H Pulse Oximetry 95 99 02/10/19 03:00 04/24/18 03:07 04/24/18 04:00 Temperature 98.2 F Pulse Rate 84 83 84 Respiratory Rate 11 L 17 10 L Blood Pressure 165/63 H 169/74 H Pulse Oximetry 99 97 04/24/18 04:15 04/24/18 05:00 04/24/18 06:00 Temperature Pulse Rate 83 81 Respiratory Rate 13 17 Blood Pressure 157/76 H 167/72 H Pulse Oximetry 99 97 04/24/18 07:00 04/24/18 08:00 04/24/18 08:45 Temperature 97.8 F Pulse Rate 80 82 Respiratory Rate 8 L 16 Blood Pressure 152/70 H 152/74 H Pulse Oximetry 96 97 04/24/18 08:47 04/24/18 09:00 04/24/18 10:00 Temperature Pulse Rate 79 80 102 H Respiratory Rate 10 L 14 15 Blood Pressure 156/88 H 175/73 H Pulse Oximetry 98 93 L 04/24/18 11:00 04/24/18 12:00 04/24/18 12:22 Temperature 98.6 F Pulse Rate 104 H 101 H 94 H Respiratory Rate 23 21 20 Blood Pressure 158/87 H 169/76 H Pulse Oximetry 91 L 92 L Intake & Output 04/23/18 04/24/18 04/24/18 18:59 06:59 18:59 Intake Total 580 / 580 530 / 530 50 / 50 Output Total 0 / 0 Balance 580 / 580 530 / 530 50 / 50 Weight 122 kg Intake: IV 100 / 100 50 / 50 50 / 50 Zosyn 2.25 GM Premix 2.25 gm In 100 / 100 50 / 50 50 / 50 50 ml @ 100 mls/hr IV.SIG Q[facility]H [facility] Rx#:[id number] Oral 480 / 480 480 / 480 Output: Urine 0 / 0 Other: Date of Last Bowel Movement 04/23/18 04/23/18 04/24/18 # Bowel Movements 1 1 Result Diagrams: 04/24/18 05:29 04/23/18 05:22 Other Results: Laboratory Results WBC 13.0 th/mm3 (4.0-11.0) H 04/24/18 05:29 RBC 3.18 mil/mm3 (4.50-5.90) L 04/24/18 05:29 Hgb 8.7 gm/dL (13.0-17.0) L 04/24/18 05:29 Hct 27.8 % (39.0-51.0) L 04/24/18 05:29 MCV 87.5 fL (80.0-100.0) 04/24/18 05:29 MCH 27.4 pg (27.0-34.0) 04/24/18 05:29 MCHC 31.4 % (32.0-36.0) L 04/24/18 05:29 RDW 17.5 % (11.6-17.2) H 04/24/18 05:29 Plt Count 191 th/mm3 (150-450) 04/24/18 05:29 MPV 8.4 fL (7.0-11.0) 04/24/18 05:29 Prelim Diff (Auto) Slide review pending 04/11/18 10:37 Neut % (Auto) 80.3 % (16.0-70.0) H 04/24/18 05:29 Lymph % (Auto) 7.2 % (9.0-44.0) L 04/24/18 05:29 [place] % (Auto) 9.8 % (0.0-8.0) H 04/24/18 05:29 Eos % (Auto) 2.5 % (0.0-4.0) 04/24/18 05:29 Baso % (Auto) 0.2 % (0.0-2.0) 04/24/18 05:29 Neut # (Auto) 10.4 th/mm3 (1.8-7.7) H 04/24/18 05:29 Lymph # (Auto) 0.9 th/mm3 (1.0-4.8) L 04/24/18 05:29 [place] # (Auto) 1.3 th/mm3 (0.0-0.9) H 04/24/18 05:29 Eos # (Auto) 0.3 th/mm3 (0.0-0.4) 04/24/18 05:29 Baso # (Auto) 0.0 th/mm3 (0.0-0.2) 04/24/18 05:29 WBC Differential . 04/24/18 05:29 Seg Neuts % (Manual) 79 % (16-70) H 04/11/18 10:37 Band Neuts % (Manual) 4 % (0-6) 04/11/18 10:37 Lymphocytes % (Manual) 7 % (9-44) L 04/11/18 10:37 Monocytes % (Manual) 6 % (0-8) 04/11/18 10:37 Eosinophils % (Manual) 2 % (0-4) 04/11/18 10:37 Metamyelocytes % (Man) 2 % (0-1) H 04/11/18 10:37 Abs Neuts (Manual) 14.5 th/mm3 (1.8-7.7) H 04/11/18 10:37 Differential Comment Auto diff final 04/24/18 05:29 Platelet Estimate Normal (Normal) 04/11/18 10:37 Platelet Morphology Normal (Normal) 04/11/18 10:37 PT 12.1 sec (9.8-11.6) H 04/11/18 10:37 INR 1.2 Ratio 04/11/18 10:37 APTT 24.5 sec (23.4-31.7) 04/11/18 10:37 Puncture Site Right radial 04/20/18 04:31 Patient Temperature 98.6 04/20/18 04:31 O2 Saturation 92 % (90-100) 04/20/18 04:31 ABG pH 7.39 (7.380-7.420) 04/20/18 04:31 ABG pCO2 41 mmHg (38-42) 04/20/18 04:31 ABG pO2 81 mmHG (61-120) 04/20/18 04:31 ABG HCO3 24 mmol/L (22-26) 04/20/18 04:31 ABG O2 Content 12.6 Vol % (12.0-20.0) 04/20/18 04:31 ABG Base Excess 0.0 mmol/L (-2-2) 04/20/18 04:31 ABG Methemoglobin 1.9 % (0-2) 04/20/18 04:31 Zeferino Test Present 04/20/18 04:31 Hemoglobin 9.6 G/DL (12.0-16.0) L 04/20/18 04:31 Carboxyhemoglobin 1.2 % (0-4) 04/20/18 04:31 O2 Delivery Device Ventilator 04/20/18 04:31 Vent Setting Prvc/ac 18, vt 550 04/20/18 04:31 Inspired O2 40 % 04/20/18 04:31 Critical Value No 04/20/18 04:31 Sodium 138 meq/L (136-145) 04/23/18 05:22 Potassium 3.9 meq/L (3.5-5.1) 04/23/18 05:22 Chloride 96 meq/L (98-107) L 04/23/18 05:22 Carbon Dioxide 31.0 meq/L (21.0-32.0) D 04/23/18 05:22 Anion Gap 11 meq/L (5-15) 04/23/18 05:22 BUN 57 mg/dL (7-18) H 04/23/18 05:22 Creatinine 6.76 mg/dL (0.60-1.30) H 04/23/18 05:22 Estimated GFR 8 mL/min (>89) L 04/23/18 05:22 POC Glucose 202 mg/dl (68-110) H 04/24/18 11:45 Random Glucose 119 mg/dL (74-106) H 04/23/18 05:22 Calcium 7.9 mg/dL (8.5-10.1) L 04/23/18 05:22 Calcium Adj for Albumin 8.3 mg/dL (8.5-10.1) L 04/21/18 05:26 Phosphorus 9.2 mg/dL (2.5-4.9) H 04/24/18 00:59 Magnesium 2.8 mg/dL (1.5-2.5) H 04/24/18 00:59 Total Bilirubin 0.5 mg/dL (0.2-1.0) 04/23/18 05:22 AST 9 U/L (15-37) L 04/23/18 05:22 ALT 12 U/L (12-78) 04/23/18 05:22 Alkaline Phosphatase 88 U/L (45-117) 04/23/18 05:22 Total Creatine Kinase 94 U/L (39-308) 04/11/18 10:37 Troponin I 0.12 ng/mL (0.02-0.05) H 04/14/18 07:18 B-Natriuretic Peptide 1680 pg/mL (0-100) H 04/11/18 10:37 Total Protein 6.8 g/dL (6.4-8.2) 04/23/18 05:22 Albumin 3.0 g/dL (3.4-5.0) L 04/23/18 05:22 PTH Intact 1955.5 pg/mL (12.4-76.8) H 04/18/18 06:50 Nasal Screen MRSA (PCR) Not detected (Negative) 04/11/18 13:15 Hepatitis A IgM Ab Nonreactive (Nonreactive) 04/11/18 14:08 Hep Bs Antigen Nonreactive (Nonreactive) 04/11/18 14:08 Hep B Core IgM Ab Nonreactive (Nonreactive) 04/11/18 14:08 Hep C IgG Ab Nonreactive (Nonreactive) 04/11/18 14:08 Impressions Chest CTA 04/12/18 00:00 CONCLUSION: 1. No CT evidence for pulmonary artery embolism as questioned. 2. Cardiomegaly with trace bilateral pleural effusions and mild airspace consolidation at the lung bases which may reflect compressive atelectasis. Differential considerations include aspiration in the appropriate clinical setting. 3. Trace perihepatic ascites fluid. Chest X-Ray 04/23/18 06:00 CONCLUSION: 1. Cardiomegaly with positive fluid balance. 2. Stable probable bilateral small pleural effusions and associated airspace disease at the lung bases. Objective Remarks: GENERAL: Patient is 67 yo male currently on 4LPM/NC, resting comfortably SKIN: Warm and dry. Antecubital fossa right arm noted erythematous area slightly raised HEAD: Normocephalic. EYES: No scleral icterus. No injection or drainage. EOMI. NECK: Supple, trachea midline. No JVD or lymphadenopathy. CARDIOVASCULAR: Regular rate and rhythm without murmurs, gallops, or rubs. RESPIRATORY: Breath sounds equal bilaterally. Scattered coarse rhonchi, slightly cleared with coughing GASTROINTESTINAL: Abdomen soft, obese non-tender, nondistended. MUSCULOSKELETAL: No cyanosis,+ edema. Positive bruit and thrill left forearm AV fistula Neuro: GCS 15. Awake and oriented x 4. No focal deficit Assessment and Plan - Assessment and Plan Plan: 1. Acute respiratory failure intubated 04/15 2. s/p post cardiopulmonary arrest, asystolic event during colonoscopy 3. ESRD, on hemodialysis. 4. Persistent leukocytosis. 5. Anemia. 6. Hypocalcemia. 7. Hypertension. 8. Diabetes mellitus. 9. COPD 10. Previous renal transplant in 2004. 11. CAD/CABG in 2003. 12. GERD 13. SVT 14. Thrombophlebitis right antecubital fossa Plan Neuro: Off all continuous sedation Monitor neuro status closely Pulm: Extubated 04/21/2018. Currently on FiO2 4 L/min nasal cannula O2 saturation 94% Continue BiPAP at HS Bronchodilators, ICU vent bundle Pulm is following- Dr. Ramirez, status post bronchoscopy 04/20, mucoid secretions removed CV: Monitor HR and BP and maintain MAP >65 mmHg. Cards is following- Dr. Arredondo. [facility] when resp status improves Echo showed EF 50-55%. On ASA, Lipitor, Imdur Right antecubital fossa thrombophlebitis? Plan ultrasound of right upper extremity : Monitor renal function, I's and O's and avoid nephrotoxins. Renal is following. HD per renal -- schedule ID: Continue abx on Zosyn/Vanco monitor for signs of infections ( fever, WBC) Follow up on sputum cx. Negative to date 04/24, pharmacy consult for vancomycin management. Increase vancomycin to 2 g with dialysis, dose adjusted for weight Repeat blood cultures x2 ID consulted GI: On Protonix 40 mg daily. Renal diet as tolerated Heme: Monitor CBC. Endo: Transitioned from insulin infusion to SSI with accuhecks, on Prednisone 5mg daily GI prophylaxis- on Protonix 40 mg daily DVT prophylaxis- on SCD and heparin subcu Level 2 Extubated on 04/21. Plan transfer to [facility] in a.m. Code Status: Full Discussed Condition With: Patient patient's family (sons), and [employer] ADMINISTRATOR, Dr. Ramos Rosado pulmonology at bedside
[2018-04-24] MEDS ORDERED: Vancomycin Inj 2,000 MG in Sodium Chlor 0.9% Inj 500 ML IV.SIG SCH (14:00)
[2018-04-24] MEDS ORDERED: Morphine Sulfate Inj 2 MG/ML Vial IV.PUSH ONE (15:01)
--- NOTE | 2018-04-24 15:38 | US ---
EXAM DATE: 04/24/2018 3:22 PM EST AGE/SEX: 57 years / Male INDICATIONS: Right arm swelling/redness. CLINICAL DATA: This is the patient's initial encounter. Patient reports that signs and symptoms have been present for 1 day and indicates a pain score of 0/10. MEDICAL/SURGICAL HISTORY: Gastroesophageal reflux disease. Hypertension. Hypercholesterolemia . Diabetes. Skin malignancy. Obesity. Transfusions. Appendectomy. CABG. Kidney biopsy. AV fistula. Colonoscopy. Exploratory laparotomy. Kidney transplant. PTCA. COMPARISON: No prior exams available for comparison. FINDINGS: The vessels are compressible and augmentation response is documented. No filling defects a re seen. The flow is phasic with respiration. Other: None. CONCLUSION: 1. The study is negative for upper extremity deep venous thrombosis. Electronically signed by: Jack Tucker MD Board Certified Radiologist 04/24/2018 3:36 PM EST
--- NOTE | 2018-04-24 16:31 | P.CONID ---
History of Present Illness Service: Infectious Disease Consult date: 04/25/18 Requesting Physician: Elizabeth Suero Reason for Consult: Evaluation and Mment of Right AC fossa area phlebitis and leucocytosis. Primary Care Provider: Gerhard Mejia MD Chief Complaint: Cardiac arrest History of Present Illness: Mr. Salugero is a 57-year-old male with multiple medical problems including end-stage renal disease was on hemodialysis and followed by Dr. Vogel. Patient reports that he is status post renal transplant in 2004 but ended up needing dialysis. Patient reports that he has a left forearm AV fistula which is functional and is being used for hemodialysis. Patient's past medical history is also significant for morbid obesity, coronary artery disease with previous coronary artery bypass grafting in 2003. Per review of records it appears that patient was having a routine colonoscopy and while being sedated he had an asystolic episode. He received 2 rounds of epinephrine and chest compressions were performed. He was initially intubated on arrival to the ER and then subsequently was extubated. On April 15 patient again started having respiratory distress and was intubated again. Patient has been undergoing hemodialysis during this hospitalization. Patient was extubated on April 21, 2017 and has been doing well. Patient's noticed that on the right upper extremity on possibly a IV or blood draw site there was some redness noted and she brought her to the attention of the critical care physician. Due to elevated white count and concern for infection infectious disease was consulted and Dr. Suero personally discussed the case with me. Blood cultures were drawn and patient was empirically started on antibiotics appropriately. At the time of my evaluation patient is in the intensive medical care unit currently awake alert oriented x3. He denies any complaints other than soreness at the site of the right upper extremity AC fossa area with possible phlebitis. Review of Systems All other systems reviewed negative except as stated in HPI PMFSH - History History Provided By: Patient, Medical Record - Medical History Medical History: Medical History (Last Reviewed 04/22/18 @ 13:30 by Wilian Cruz) Colonoscopy planned HTN (hypertension) AVF (arteriovenous fistula) Abnormal biopsy of kidney Diabetes mellitus Erosive esophagitis GERD (gastroesophageal reflux disease) History of fracture Hx of skin malignancy Hypercholesterolemia Kidney transplant failure Obesity Smoking history Transfusion history - Surgical History Surgical History: Surgical History (Last Reviewed 04/22/18 @ 13:30 by Wilian Cruz) H/O exploratory laparotomy Hx of CABG Hx of appendectomy Kidney transplant recipient S/P PTCA (percutaneous transluminal coronary angioplasty) - Family History Family History: Family History (Last Reviewed 04/11/18 @ 13:30 by Ailin Vasquez MD) Father Emphysema of lung Grandparent Kidney disease Breast cancer - Tobacco History Second Hand Smoke Exposure: Yes Tobacco Use In Past 30 Days: No Smoking Status: Former smoker Tobacco Type: Cigarettes Packs Per Day: 1 Years Smoked: 20 Smoking End Date: 2003 - Alcohol History How Often Do You Have a Drink Containing Alcohol: Monthly or less - Substance Use History Substance History: No History of Abuse - Travel History History of Recent Travel: No Recent Travel in the [place] Within the Last 8 Weeks: No Recent Travel Out of the Country Within the Last 8 Weeks: No - Immunization History Tetanus Immunization: Unsure Hx Influenza Vaccine This Season: Yes Medications and Allergies Active Medications: Active Medications Hydrocodone Bitart/Acetaminophen (Rogers 10/325) 1 tab PO Q4H PRN PRN Reason: PAIN SCALE 6 TO 10 Last Admin: 04/24/18 15:25 Dose: 1 tab Albuterol (Duoneb Neb (Chel)) 1 ampul NEB Q4HR NEB CHEL Last Admin: 04/24/18 16:00 Dose: 1 ampul Albuterol (Duoneb Neb (Prn)) 1 ampul NEB Q2HR NEB PRN PRN Reason: WHEEZING Last Admin: 04/19/18 15:39 Dose: 1 ampul Aspirin (Ecotrin) 81 mg PO DAILY [facility], [facility] Last Admin: 04/24/18 09:24 Dose: 81 mg Atorvastatin Calcium (Lipitor) 40 mg PO HS [facility], [facility] Last Admin: 04/23/18 20:20 Dose: 40 mg Bisacodyl (Dulcolax Supp) 10 mg RECTAL DAILY PRN PRN Reason: SEVERE CONSITIPATION Calcitriol (Rocaltrol) 0.5 mcg PO DAILY FOR[facility]LY [facility], [facility] Last Admin: 04/24/18 09:24 Dose: 0.5 mcg Calcium Acetate (Phoslo) 1,334 mg PO TID [facility], [facility] Last Admin: 04/24/18 12:00 Dose: 1,334 mg Clonidine HCl (Catapres) 0.1 mg PO UNSCH PRN PRN Reason: SEE LABEL COMMENTS Dextrose (D50w Vial) 50 ml IV.PUSH UNSCH PRN PRN Reason: PER HYPOGLYCEMIA PROTOCOL Diphenhydramine HCl (Benadryl) 25 mg PO UNSCH PRN PRN Reason: SEE LABEL COMMENTS Epoetin Gian (Epogen Inj) 4,000 unit IV.PUSH UNSCH PRN PRN Reason: SEE LABEL COMMENTS Last Admin: 04/20/18 15:40 Dose: 4,000 unit Gelatin (Gelfoam 12 Mm/7 Mm Topical) 1 foam TOPICAL PRN PRN PRN Reason: help stop bleeding from site Gentamicin Sulfate (Gentamicin Inj) 20 mg OTHER WITH DIALYSIS PRN PRN Reason: Dwell Gentamycin Lock Glucagon (Glucagon Inj) 1 mg OTHER PRN PRN PRN Reason: for Hypoglycemia Protocol Heparin Sodium (Porcine) (Heparin Inj) 5,000 units SQ Q12H [facility] Last Admin: 04/24/18 12:00 Dose: 5,000 units Heparin Sodium (Porcine) (Heparin Inj) 8,000 units OTHER WITH DIALYSIS PRN PRN Reason: for machine prime Heparin Sodium (Porcine) (Heparin Inj) 1,000 units OTHER WITH DIALYSIS PRN PRN Reason: Dwell Heparin to Fill Catheter Hydralazine HCl (Apresoline) 25 mg PO TID [facility] Last Admin: 04/24/18 12:00 Dose: 25 mg Vancomycin HCl 2,000 mg/ (Sodium Chloride) 520 mls @ 250 mls/hr IV.SIG WITH DIALYSIS CHEL Albumin Human (Flexbumin 25% Inj) 100 mls @ 60 mls/hr IV.SIG WITH DIALYSIS PRN PRN Reason: hypotension / volume replace Last Infusion: 04/15/18 09:14 Dose: Infused Sodium Chloride (Ns Inj) 1,000 mls @ 0 mls/hr OTHER .Q0M PRN PRN Reason: for prime and rinse back Sodium Chloride (Ns Inj) 1,000 mls @ 200 mls/hr OTHER .Q5H PRN PRN Reason: for dialyzer flush PRN Sodium Chloride (Ns Inj) 1,000 mls @ 0 mls/hr IV.CONT .Q0M PRN PRN Reason: hypotension / volume replace Piperacillin/Tazobactam/Dextrose (Zosyn 2.25 Gm Premix) 2.25 gm in 50 mls @ 100 mls/hr IV.SIG Q8H [facility], [facility] Last Infusion: 04/24/18 10:16 Dose: Infused Propofol (Diprivan 1000 Mg/100 Ml Inj) 1,000 mg in 100 mls @ 3.708 mls/hr IV.CONT TITRATE PRN; Protocol PRN Reason: Per Protocol Last Titration: 04/21/18 09:30 Dose: 0 mcg/kg/min, 0 mls/hr Insulin Human Regular (Novolin R Correctional Sugar Inj) 0 units SQ Q4HR [facility], [facility]; Protocol Last Admin: 04/24/18 16:29 Dose: Not Given Isosorbide Mononitrate (Imdur) 120 mg PO DAILY@0700 [facility] Last Admin: 04/24/18 07:35 Dose: 120 mg Lactulose (Lactulose Liq) 30 ml PO DAILY PRN PRN Reason: SEVERE CONSITIPATION Last Admin: 04/15/18 01:42 Dose: 30 ml Mannitol (Mannitol Inj) 12.5 gm IV.PUSH UNSCH PRN PRN Reason: hypotension / volume replace Nitroglycerin (Nitrostat Sl) 0.4 mg SL Q5M PRN PRN Reason: CHEST PAIN Ondansetron HCl (Zofran Inj) 4 mg IV.PUSH Q6H PRN PRN Reason: NAUSEA OR VOMITING Pantoprazole Sodium (Protonix Inj) 40 mg IV.PUSH DAILY [facility] Last Admin: 04/24/18 09:24 Dose: 40 mg Pharmacy Profile Note (Vancomycin Consult Pharmacy) 1 each OTHER UNSCH PRN PRN Reason: Pharmacy to dose Prednisone (Deltasone) 5 mg PO DAILY [facility] Last Admin: 04/24/18 09:25 Dose: 5 mg Senna/Docusate Sodium (Maribel-Colace) 1 tab PO BID [facility] Last Admin: 04/24/18 08:55 Dose: Not Given Sennosides (Senokot) 17.2 mg PO Q12H PRN PRN Reason: Moderate Constipation Sodium Chloride (Ns Flush) 2 ml IV.FLUSH UNSCH PRN PRN Reason: FLUSH AFTER USING IV ACCESS Sodium Chloride (Ns Flush) 2 ml IV.FLUSH BID [facility] Last Admin: 04/24/18 09:25 Dose: 2 ml Sodium Chloride (Ns Flush) 5 ml IV.FLUSH PRN PRN PRN Reason: flush each lumen during HD Allergies Allergy/AdvReac Type Severity Reaction Status Date / Time No Known Allergies Allergy Verified 04/11/18 10:33 Home Medications Medication Instructions Recorded Confirmed Type furosemide 80 mg PO DAILY 11/10/17 04/11/18 History insulin glargine [Lantus U-100 25 unit SUB-Q HS 11/10/17 04/11/18 History Insulin] prednisone 5 mg PO DAILY 11/10/17 04/11/18 History sevelamer carbonate [Renvela] 1,600 mg PO TIDAC 11/10/17 04/11/18 History albuterol sulfate [Ventolin HFA] 2 puff INHALATION Q4-6H PRN 04/11/18 04/11/18 History Exam Vital signs: Vital Signs 04/23/18 17:00 04/23/18 18:00 04/23/18 19:00 Temperature 98.8 F Pulse Rate 89 93 H 89 Respiratory Rate 20 26 H 14 Blood Pressure 173/83 H 186/80 H 152/68 H Pulse Oximetry 87 L 90 L 04/23/18 19:06 04/23/18 19:40 04/23/18 20:00 Temperature Pulse Rate 88 Respiratory Rate 20 20 18 Blood Pressure 177/73 H Pulse Oximetry 82 L 04/23/18 20:05 04/23/18 21:00 04/23/18 22:00 Temperature Pulse Rate 87 95 H 93 H Respiratory Rate 18 37 H 15 Blood Pressure 153/95 H 163/70 H Pulse Oximetry 89 L 95 04/23/18 23:00 04/24/18 00:00 04/24/18 00:10 Temperature 98.3 F Pulse Rate 93 H 91 H Respiratory Rate 17 20 16 Blood Pressure 163/76 H 173/75 H Pulse Oximetry 93 L 04/24/18 01:00 04/24/18 01:25 04/24/18 01:41 Temperature Pulse Rate 89 Respiratory Rate 16 14 Blood Pressure 177/88 H Pulse Oximetry 98 95 04/24/18 02:00 04/24/18 03:00 04/24/18 03:07 Temperature 98.2 F Pulse Rate 91 H 84 83 Respiratory Rate 18 11 L 17 Blood Pressure 173/73 H 165/63 H Pulse Oximetry 99 99 04/24/18 04:00 04/24/18 04:15 04/24/18 05:00 Temperature Pulse Rate 84 83 Respiratory Rate 10 L 13 Blood Pressure 169/74 H 157/76 H Pulse Oximetry 97 99 97 04/24/18 06:00 04/24/18 07:00 04/24/18 08:00 Temperature 97.8 F Pulse Rate 81 80 82 Respiratory Rate 17 8 L 16 Blood Pressure 167/72 H 152/70 H 152/74 H Pulse Oximetry 96 04/24/18 08:45 04/24/18 08:47 04/24/18 09:00 Temperature Pulse Rate 79 80 Respiratory Rate 10 L 14 Blood Pressure 156/88 H Pulse Oximetry 97 98 04/24/18 10:00 04/24/18 11:00 04/24/18 12:00 Temperature 98.6 F Pulse Rate 102 H 104 H 101 H Respiratory Rate 15 23 21 Blood Pressure 175/73 H 158/87 H 169/76 H Pulse Oximetry 93 L 91 L 92 L 04/24/18 12:22 04/24/18 14:00 04/24/18 15:33 Temperature Pulse Rate 94 H 97 H Respiratory Rate 20 22 Blood Pressure Pulse Oximetry 04/24/18 16:00 04/24/18 16:02 Temperature Pulse Rate 95 H 97 H Respiratory Rate 18 16 Blood Pressure Pulse Oximetry Intake & Output 04/23/18 04/24/18 04/24/18 18:59 06:59 18:59 Intake Total 580 / 580 530 / 530 50 / 50 Output Total 0 / 0 Balance 580 / 580 530 / 530 50 / 50 Weight 122 kg Intake: IV 100 / 100 50 / 50 50 / 50 Zosyn 2.25 GM Premix 2.25 gm In 100 / 100 50 / 50 50 / 50 50 ml @ 100 mls/hr IV.SIG Q8H [facility], [facility] Rx#:[id number] Oral 480 / 480 480 / 480 Output: Urine 0 / 0 Other: Date of Last Bowel Movement 04/23/18 04/23/18 04/24/18 # Bowel Movements 1 1 Narrative: GENERAL: Well-nourished well-developed, not in acute distress SKIN: Cool and dry, no generalized rash HEAD: Atraumatic. Normocephalic. No temporal or scalp tenderness. EYES: Pupils equal round and reactive. Scleral icterus. No injection or drainage. No petechia ENT: Nothing abnormal detected NECK: Trachea midline. Supple, nontender, no meningeal signs. CARDIOVASCULAR: HS audible. RESPIRATORY: Clear to auscultation bilaterally. GASTROINTESTINAL: Abdomen soft nontender. MUSCULOSKELETAL: Extremities without clubbing, cyanosis. Left upper extremity forearm AV fistula site with no evidence of infection. Bruit audible and thrill palpable. Right upper extremity AC fossa area slightly above it there was an area of redness with induration and a cord was palpable. NEUROLOGICAL: Alert oriented 3. Nonfocal. Psych cooperative IV line sites ok. Results - Labs CBC & Chem 7: 04/25/18 08:14 04/25/18 08:14 Labs: Laboratory Results - last 24 hr 04/23/18 04/24/18 04/24/18 19:17 00:09 00:59 WBC RBC Hgb Hct MCV MCH MCHC RDW Plt Count MPV Neut % (Auto) Lymph % (Auto) Mcmullen % (Auto) Eos % (Auto) Baso % (Auto) Neut # (Auto) Lymph # (Auto) Mcmullen # (Auto) Eos # (Auto) Baso # (Auto) WBC Differential Differential Comment POC Glucose 169 H 142 H Phosphorus 9.2 H Magnesium 2.8 H 04/24/18 04/24/18 04/24/18 05:29 07:41 11:45 WBC 13.0 H RBC 3.18 L Hgb 8.7 L Hct 27.8 L MCV 87.5 MCH 27.4 MCHC 31.4 L RDW 17.5 H Plt Count 191 MPV 8.4 Neut % (Auto) 80.3 H Lymph % (Auto) 7.2 L Mcmullen % (Auto) 9.8 H Eos % (Auto) 2.5 Baso % (Auto) 0.2 Neut # (Auto) 10.4 H Lymph # (Auto) 0.9 L Mcmullen # (Auto) 1.3 H Eos # (Auto) 0.3 Baso # (Auto) 0.0 WBC Differential . Differential Comment Auto diff final POC Glucose 115 H 202 H Phosphorus Magnesium 04/24/18 16:22 WBC RBC Hgb Hct MCV MCH MCHC RDW Plt Count MPV Neut % (Auto) Lymph % (Auto) Mcmullen % (Auto) Eos % (Auto) Baso % (Auto) Neut # (Auto) Lymph # (Auto) Mcmullen # (Auto) Eos # (Auto) Baso # (Auto) WBC Differential Differential Comment POC Glucose 150 H Phosphorus Magnesium - Imaging Impressions Venous Doppler Study 04/24/18 00:00 CONCLUSION: 1. The study is negative for upper extremity deep venous thrombosis. Assessment and Plan - Plan Possible Septic thrombophlebitis ESRD on HD Left AV fistula functional h/o asystole during anaesthesia for Colonoscopy. Recs Vascular consult notified. Continue Antibiotics Zosyn Continue Vanco Check Vanco level in HD Follow cultures Follow clinical course. ryan Redd
[2018-04-25] MEDS: Insulin NovoLIN Regular Correctional Sugar Inj SQ SCH ×6 (00:07→20:42)
[2018-04-25] MEDS: Heparin - SQ 10,000 UNITS/ML Vial SQ SCH ×2 (00:59→13:11)
[2018-04-25] MEDS: Piperacil/Tazo 2.25 GM Premix 2.25 GM/50 ML PIGGYBACK IV.SIG SCH ×3 (01:00→17:50)
--- NOTE | 2018-04-25 05:49 | XR ---
EXAM DATE: 04/25/2018 4:23 AM EST AGE/SEX: 57 years / Male INDICATIONS: Shortness of breath, possible pulmonary disease. CLINICAL DATA: This is the patient's subsequent encounter. Patient reports that signs and symptoms h ave been present for 1 week and indicates a pain score of 0/10. MEDICAL/SURGICAL HISTORY: Diabetes. Cardiovascular disease. Myocardial infarction. CABG. COMPARISON: [facility], [facility] PULMONARY W CONTRAST W 3D, 04/12/2018. . FINDINGS: Cardiac silhouette is enlarged. Lungs are grossly stable with mild hazy pleural-parenchymal opacity i n the bases. CONCLUSION: No significant interval change Electronically signed by: Homero Lewis MD Board Certified Radiologist 04/25/2018 5:48 AM EST
[2018-04-25] MEDS: Isosorbide Mononitrate 60 MG ER 24HR Tablet (Imdur) PO SCH (06:29)
[2018-04-25] MEDS: hydrALAZINE 25 MG Tablet PO SCH ×3 (08:16→17:50)
[2018-04-25] MEDS: Pantoprazole Inj 40 MG Vial IV.PUSH SCH (08:16)
[2018-04-25] MEDS: Senna/Docusate Sodium 8.6/50 MG Tablet PO SCH ×2 (08:16→20:45)
[2018-04-25] MEDS: predniSONE 5 MG Tablet PO SCH (08:16)
[2018-04-25] MEDS: Calcitriol 0.25 MCG Capsule PO SCH (08:16)
[2018-04-25] MEDS: Calcium Acetate 667 MG Capsule PO SCH ×3 (08:17→17:50)
--- NOTE | 2018-04-25 08:31 | P.PNCA ---
Subjective Interval history: Still feels like there is some phlegm he cannot cough up. Breathing is much improved. Telemetry noted with occasional PVCs, short atrial runs. Medications and Allergies Active Medications: Active Medications Hydrocodone Bitart/Acetaminophen (Bee 10/325) 1 tab PO Q4H PRN PRN Reason: PAIN SCALE 6 TO 10 Last Admin: 04/25/18 08:16 Dose: 1 tab Albuterol (Duoneb Neb (Chel)) 1 ampul NEB Q4HR NEB CHEL Last Admin: 04/25/18 08:01 Dose: 1 ampul Albuterol (Duoneb Neb (Prn)) 1 ampul NEB Q2HR NEB PRN PRN Reason: WHEEZING Last Admin: 04/19/18 15:39 Dose: 1 ampul Aspirin (Ecotrin) 81 mg PO DAILY [facility] Last Admin: 04/25/18 08:16 Dose: 81 mg Atorvastatin Calcium (Lipitor) 40 mg PO HS [facility] Last Admin: 04/24/18 21:03 Dose: 40 mg Bisacodyl (Dulcolax Supp) 10 mg RECTAL DAILY PRN PRN Reason: SEVERE CONSITIPATION Calcitriol (Rocaltrol) 0.5 mcg PO DAILY [facility] Last Admin: 04/25/18 08:16 Dose: 0.5 mcg Calcium Acetate (Phoslo) 1,334 mg PO TID [facility] Last Admin: 04/25/18 08:17 Dose: Not Given Clonidine HCl (Catapres) 0.1 mg PO UNSCH PRN PRN Reason: SEE LABEL COMMENTS Dextrose (D50w Vial) 50 ml IV.PUSH UNSCH PRN PRN Reason: PER HYPOGLYCEMIA PROTOCOL Diphenhydramine HCl (Benadryl) 25 mg PO UNSCH PRN PRN Reason: SEE LABEL COMMENTS Epoetin Gian (Epogen Inj) 4,000 unit IV.PUSH UNSCH PRN PRN Reason: SEE LABEL COMMENTS Last Admin: 04/20/18 15:40 Dose: 4,000 unit Gelatin (Gelfoam 12 Mm/7 Mm Topical) 1 foam TOPICAL PRN PRN PRN Reason: help stop bleeding from site Gentamicin Sulfate (Gentamicin Inj) 20 mg OTHER WITH DIALYSIS PRN PRN Reason: Dwell Gentamycin Lock Glucagon (Glucagon Inj) 1 mg OTHER PRN PRN PRN Reason: for Hypoglycemia Protocol Heparin Sodium (Porcine) (Heparin Inj) 5,000 units SQ Q12H [facility] Last Admin: 04/25/18 00:59 Dose: 5,000 units Heparin Sodium (Porcine) (Heparin Inj) 8,000 units OTHER WITH DIALYSIS PRN PRN Reason: for machine prime Heparin Sodium (Porcine) (Heparin Inj) 1,000 units OTHER WITH DIALYSIS PRN PRN Reason: Dwell Heparin to Fill Catheter Hydralazine HCl (Apresoline) 25 mg PO TID [facility] Last Admin: 04/25/18 08:16 Dose: 25 mg Vancomycin HCl 2,000 mg/ (Sodium Chloride) 520 mls @ 250 mls/hr IV.SIG WITH DIALYSIS [facility] Albumin Human (Flexbumin 25% Inj) 100 mls @ 60 mls/hr IV.SIG WITH DIALYSIS PRN PRN Reason: hypotension / volume replace Last Infusion: 04/15/18 09:14 Dose: Infused Sodium Chloride (Ns Inj) 1,000 mls @ 0 mls/hr OTHER .Q0M PRN PRN Reason: for prime and rinse back Sodium Chloride (Ns Inj) 1,000 mls @ 200 mls/hr OTHER .Q5H PRN PRN Reason: for dialyzer flush PRN Sodium Chloride (Ns Inj) 1,000 mls @ 0 mls/hr IV.CONT .Q0M PRN PRN Reason: hypotension / volume replace Piperacillin/Tazobactam/Dextrose (Zosyn 2.25 Gm Premix) 2.25 gm in 50 mls @ 100 mls/hr IV.SIG Q8H [facility] Last Infusion: 04/25/18 01:41 Dose: Infused Propofol (Diprivan 1000 Mg/100 Ml Inj) 1,000 mg in 100 mls @ 3.708 mls/hr IV.CONT TITRATE PRN; Protocol PRN Reason: Per Protocol Last Titration: 04/21/18 09:30 Dose: 0 mcg/kg/min, 0 mls/hr Insulin Human Regular (Novolin R Correctional Sugar Inj) 0 units SQ Q4HR [facility]; Protocol Last Admin: 04/25/18 04:14 Dose: Not Given Isosorbide Mononitrate (Imdur) 120 mg PO DAILY@0700 [facility] Last Admin: 04/25/18 06:29 Dose: 120 mg Lactulose (Lactulose Liq) 30 ml PO DAILY PRN PRN Reason: SEVERE CONSITIPATION Last Admin: 04/15/18 01:42 Dose: 30 ml Mannitol (Mannitol Inj) 12.5 gm IV.PUSH UNSCH PRN PRN Reason: hypotension / volume replace Nitroglycerin (Nitrostat Sl) 0.4 mg SL Q5M PRN PRN Reason: CHEST PAIN Ondansetron HCl (Zofran Inj) 4 mg IV.PUSH Q6H PRN PRN Reason: NAUSEA OR VOMITING Pantoprazole Sodium (Protonix Inj) 40 mg IV.PUSH DAILY [facility] Last Admin: 04/25/18 08:16 Dose: 40 mg Pharmacy Profile Note (Vancomycin Consult Pharmacy) 1 each OTHER UNSCH PRN PRN Reason: Pharmacy to dose Prednisone (Deltasone) 5 mg PO DAILY [facility] Last Admin: 04/25/18 08:16 Dose: 5 mg Senna/Docusate Sodium (Maribel-Colace) 1 tab PO BID [facility] Last Admin: 04/25/18 08:16 Dose: 1 tab Sennosides (Senokot) 17.2 mg PO Q12H PRN PRN Reason: Moderate Constipation Sodium Chloride (Ns Flush) 2 ml IV.FLUSH UNSCH PRN PRN Reason: FLUSH AFTER USING IV ACCESS Sodium Chloride (Ns Flush) 2 ml IV.FLUSH BID [facility] Last Admin: 04/25/18 08:17 Dose: 2 ml Sodium Chloride (Ns Flush) 5 ml IV.FLUSH PRN PRN PRN Reason: flush each lumen during HD Allergies Allergy/AdvReac Type Severity Reaction Status Date / Time No Known Allergies Allergy Verified 04/11/18 10:33 Home Medications Medication Instructions Recorded Confirmed Type furosemide 80 mg PO DAILY 11/10/17 04/11/18 History insulin glargine [Lantus U-100 25 unit SUB-Q HS 11/10/17 04/11/18 History Insulin] prednisone 5 mg PO DAILY 11/10/17 04/11/18 History sevelamer carbonate [Renvela] 1,600 mg PO TIDAC 11/10/17 04/11/18 History albuterol sulfate [Ventolin HFA] 2 puff INHALATION Q4-6H PRN 04/11/18 04/11/18 History Physical Exam Vital signs: Vital Signs 04/24/18 08:45 04/24/18 08:47 04/24/18 09:00 Temperature Pulse Rate 79 80 Respiratory Rate 10 L 14 Blood Pressure 156/88 H Pulse Oximetry 97 98 04/24/18 10:00 04/24/18 11:00 04/24/18 12:00 Temperature 98.6 F Pulse Rate 102 H 104 H 101 H Respiratory Rate 15 23 21 Blood Pressure 175/73 H 158/87 H 169/76 H Pulse Oximetry 93 L 91 L 92 L 04/24/18 12:22 04/24/18 13:00 04/24/18 14:00 Temperature Pulse Rate 94 H 100 H 94 H Respiratory Rate 20 25 H 16 Blood Pressure 168/79 H 176/78 H Pulse Oximetry 94 L 92 L 04/24/18 15:00 04/24/18 15:33 04/24/18 16:00 Temperature Pulse Rate 98 H 97 H Respiratory Rate 26 H 22 21 Blood Pressure 182/79 H 164/77 H Pulse Oximetry 91 L 96 04/24/18 16:02 04/24/18 17:00 04/24/18 18:00 Temperature 98.7 F Pulse Rate 97 H 100 H 97 H Respiratory Rate 16 24 28 H Blood Pressure 183/75 H 153/80 H Pulse Oximetry 95 93 L 04/24/18 19:00 04/24/18 19:24 04/24/18 19:37 Temperature Pulse Rate 106 H 96 H Respiratory Rate 24 18 18 Blood Pressure 165/75 H Pulse Oximetry 92 L 98 04/24/18 20:00 04/24/18 20:05 04/24/18 22:00 Temperature 100.0 F H Pulse Rate 96 H 96 H Respiratory Rate 18 16 Blood Pressure 149/72 H Pulse Oximetry 94 L 04/24/18 23:19 04/24/18 23:25 04/25/18 00:00 Temperature Pulse Rate 99 H 98 H Respiratory Rate 24 18 20 Blood Pressure Pulse Oximetry 99 04/25/18 00:26 04/25/18 00:30 04/25/18 01:00 Temperature Pulse Rate 93 H Respiratory Rate 14 Blood Pressure 152/69 H Pulse Oximetry 98 98 97 04/25/18 02:00 04/25/18 02:49 04/25/18 03:49 Temperature Pulse Rate 89 89 Respiratory Rate 11 L Blood Pressure Pulse Oximetry 98 04/25/18 04:00 04/25/18 06:00 04/25/18 06:31 Temperature 99.1 F Pulse Rate 99 H 100 H Respiratory Rate 20 20 Blood Pressure 148/71 H Pulse Oximetry 94 L 04/25/18 07:00 04/25/18 08:00 Temperature Pulse Rate 97 H Respiratory Rate 20 Blood Pressure Pulse Oximetry 94 L Intake & Output 04/24/18 04/25/18 04/25/18 18:59 06:59 18:59 Intake Total 940 / 940 410 / 410 Output Total 0 / 0 Balance 940 / 940 410 / 410 Weight 268 lb 4.841 oz Intake: IV 100 / 100 50 / 50 Zosyn 2.25 GM Premix 2.25 gm In 100 / 100 50 / 50 50 ml @ 100 mls/hr IV.SIG Q8H [facility] Rx#:[id number] Oral 840 / 840 360 / 360 Output: Urine 0 / 0 Other: Date of Last Bowel Movement 04/24/18 04/25/18 # Bowel Movements 1 2 Narrative: GENERAL: Well-developed well-nourished. In no acute distress. NECK: No carotid bruits. No JVD. CARDIOVASCULAR: Regular rate and rhythm. No murmur appreciated. RESPIRATORY: No accessory muscle use. Clear to auscultation. Breath sounds equal bilaterally. MUSCULOSKELETAL: No clubbing or cyanosis. No edema. NEUROLOGICAL: Awake and alert. Normal speech. Results 04/24/18 05:29 04/23/18 05:22 CBC 04/24/18 Range/Units 05:29 WBC 13.0 H (4.0-11.0) th/mm3 RBC 3.18 L (4.50-5.90) mil/mm3 Hgb 8.7 L (13.0-17.0) gm/dL Hct 27.8 L (39.0-51.0) % Plt Count 191 (150-450) th/mm3 Neut # (Auto) 10.4 H (1.8-7.7) th/mm3 Lymph # (Auto) 0.9 L (1.0-4.8) th/mm3 [place] # (Auto) 1.3 H (0.0-0.9) th/mm3 Eos # (Auto) 0.3 (0.0-0.4) th/mm3 Baso # (Auto) 0.0 (0.0-0.2) th/mm3 Intake and Output 04/24/18 04/25/18 04/25/18 22:59 06:59 14:59 Intake Total 890 / 890 410 / 410 Output Total 0 / 0 Balance 890 / 890 410 / 410 Intake: IV 50 / 50 50 / 50 Zosyn 2.25 GM Premix 2.25 gm In 50 / 50 50 / 50 50 ml @ 100 mls/hr IV.SIG Q8H [facility] Rx#:[id number] Oral 840 / 840 360 / 360 Output: Urine 0 / 0 Other: Date of Last Bowel Movement 04/24/18 04/25/18 # Bowel Movements 1 2 Weight 268 lb 4.841 oz - Imaging and Cardiology Imaging: Impressions Venous Doppler Study 04/24/18 00:00 CONCLUSION: 1. The study is negative for upper extremity deep venous thrombosis. Chest X-Ray 04/25/18 04:00 CONCLUSION: No significant interval change Assessment and Plan - Plan 57-year-old male with CAD s/p 6v CABG 2003 and PCI to LCx 2015 w/ 05/18 grafts patent on LHC, ESRD on home HD 4x per week, HTN, HLD, DM. The patient was at [place] getting colonoscopy done 04/11/18 and had reported asystolic cardiac arrest. Asystolic arrest during anesthesia for colonoscopy: No strips available, however no noted VT/VF. Minimal troponin elevation in the setting of ESRD. Previously reported intermittent chest pain symptoms. When the patient was tachycardic he did have ST depression. No significant arrhythmias noted on telemetry since admission. Acute respiratory failure, requiring endotracheal intubation and mechanical ventilation. Suspected aspiration pneumonia. Respiratory status is clinically much improved. Plan for left heart catheterization today. Discussed Condition With: Patient with and RN at bedside, Dr. Arredondo
[2018-04-25 08:57] LABS: Baso # (Auto) 0.1 th/mm3 (0.0-0.2); Baso % (Auto) 0.3 % (0.0-2.0); Eos # (Auto) 0.2 th/mm3 (0.0-0.4); Eos % (Auto) 1.4 % (0.0-4.0); Hemoglobin 9.2 gm/dL (13.0-17.0); Lymph # (Auto) 0.8 th/mm3 (1.0-4.8); Lymph % (Auto) 5.1 % (9.0-44.0); Mean Corpuscular HGB Conc 31.9 % (32.0-36.0); Mean Corpuscular Hemoglobin 27.5 pg (27.0-34.0); Mean Corpuscular Volume 86.4 fL (80.0-100.0); Mean Platelet Volume 8.7 fL (7.0-11.0); Mono # (Auto) 1.3 th/mm3 (0.0-0.9); Mono % (Auto) 8.5 % (0.0-8.0); Neut # (Auto) 12.9 th/mm3 (1.8-7.7); Neut % (Auto) 84.7 % (16.0-70.0); Platelet Count 200 th/mm3 (150-450); Red Blood Count 3.35 mil/mm3 (4.50-5.90); Red Cell Distribution Width 17.6 % (11.6-17.2); White Blood Count 15.3 th/mm3 (4.0-11.0)
[2018-04-25 09:03] LABS: INR 1.2 Ratio; Prothrombin Time 12.2 sec (9.8-11.6)
[2018-04-25 09:36] LABS: Calcium 9.1 mg/dL (8.5-10.1); Carbon Dioxide 24.5 meq/L (21.0-32.0); Potassium 4.2 meq/L (3.5-5.1)
--- NOTE | 2018-04-25 09:38 | P.PNIM ---
Subjective Interval history: No new clinical complaints. Physical Exam Vital signs: Last Vital Signs Temp 99.1 F 04/25/18 04:00 Pulse 97 H 04/25/18 07:00 Resp 20 04/25/18 07:00 BP 148/71 H 04/25/18 04:00 Pulse Ox 94 L 04/25/18 08:00 Narrative: GENERAL: This is a well-nourished, well-developed patient, in no apparent distress. CARDIOVASCULAR: tachycardia RESPIRATORY: Clear to auscultation. Breath sounds equal bilaterally. No wheezes , rales, or rhonchi. GASTROINTESTINAL: Abdomen soft, non-tender, nondistended. Normal active bowel sounds MUSCULOSKELETAL: Extremities without clubbing, cyanosis, or edema. NEURO: Alert & Oriented x4 to person, place, time, situation. Moves all ext x4 Results Labs CBC & Chem 7: 04/26/18 04:19 04/26/18 04:19 Assessment and Plan Plan 1) Cardiopulmonary Arrest with successful recussitation - patient was having a routine colonoscopy and while being sedated he had an asystolic episode. - He received 2 rounds of epinephrine and chest compressions were performed. - He was initially intubated on arrival to the ER and then subsequently was extubated. - On April 15 patient again started having respiratory distress and was intubated again. - Patient was extubated on April 21, 2017 and has been doing well. - [facility] (04/25/18) with Dr. Ramos Arredondo - Successful percutaneous coronary intervention with drug-eluting stent to the mid body of the saphenous vein graft to diagonal branch. - ASA, plavix, imdur, lipitor 2) Septic Thrombophlebitis - comgmt with Vascular Surgery and Infectious Disease - phlebolith thrombosis of the antecubital and proximal basilic vein - Case d/w Vascular Surgeon, Dr. Meade (04/25). Excision of phlebolith thrombosis 04/26 - Zosyn (04/14 - present) - Vancomycin stopped 04/24 - Zyvox (04/25 - present) 2) ESRD on HD - HD ,, Wednesday per Dr. Vasquez 3) DM2 - SSI Progress Note: Quality VTE Deep Vein Thrombosis/Pulmonary Embolism Present on Admission: No
[2018-04-25 09:51] LABS: Phosphorus 9.2 mg/dL (2.5-4.9)
--- NOTE | 2018-04-25 11:17 | P.DIET ---
Nutritional Evaluation Type of nutrition evaluation: follow-up Nutrition consult regarding: Diet Evaluation Screening comments: 04/17/18 TF review Objective - Diagnosis Cardiopulmonary arrest with rosc - Objective % IBW: 159 Body Weight Used for Calculations: IBW (78.2kg) Energy Needs - Lower Range (kCal/kg): 25 Energy Needs - Upper Range (kCal/kg): 30 Lower Limit kCal/kg (kCals): 1,955 Upper Limit kCal/kg (kCals): 2,346 Lower Limit Protein Factor (Grams per Kg): 1.2 Upper Limit Protein Factor (Grams per Kg): 1.4 Lower Protein Needs (Protein): 94 Upper Protein Needs (Protein): 110 Dietitian Reviewed in Medical Record: Current diet, Curent medications, Intake & Output, Labs, Medical history Diet Order: NPO Objective Comments: PMH: erosive esophagitis, DM Meds: lipitor, calcitriol, phoslo, epogen Labs: BUN 77, Cr 9.69, estGFR 6, POC glucose 202 155 141, Phos 9.2 LBM 04/25/18 Assessment Assessment: Pt was extubated on 04/21/18 and had TF d/alirio as well, pt put on a renal soft diet. Per MD note pt tolerated PO intake well, now NPO for planned L heart cath today 04/25/18. Pt has HD at home 4 days/week and here in the hospital. Continue to monitor PO intake after NPO. RD will monitor pts nutritional needs for a PO supplement. Labs reviewed, dietitian following. Recommendations: 1. Monitor diet advancement after NPO 2. Continue to monitor PO intake after NPO 3. RD will monitor pts nutritional needs for a PO supplement. 4. Dietitian following Dietitian to Monitor: Lab values, Renal labs, Glucose level, Intake & Output, Weight change, Diet advancement, Medical course Comments: Monitor NPO status
--- NOTE | 2018-04-25 11:28 | P.PNVS ---
Subjective Subjective/Hospital Course: 57-year-old male with multiple medical problems currently in workup. Noted to have a large lump in the right antecubital fossa This is consistent with a phlebolith thrombosis of antecubital and proximal basilic vein and most likely septic thrombophlebitis at that I agree with Dr. Duke that this is septic source and should be definitely treated Patient is scheduled today to undergo coronary angioplasty and depending on the results of that patient will be taken to the operating room tomorrow for excision of this provided there are no surprises with coronary angiogram. Excision can be performed under local anesthesia with some sedation and patient does not need to be intubated for this. Full consult has been dictated and please refer for details to this. I discussed this at length with the patient and he understands that there is no significant risk involved in any procedure but if this point I believe that we do not have a choice and patient will seed infection from this to possibly distant sites while the risk of procedure is not steroid certainly lower than most other interventions that this patient had. Objective Vital Signs / I&O: Vital Signs 04/24/18 12:00 04/24/18 12:22 04/24/18 13:00 Temperature 98.6 F Pulse Rate 101 H 94 H 100 H Respiratory Rate 21 20 25 H Blood Pressure 169/76 H 168/79 H Pulse Oximetry 92 L 94 L 04/24/18 14:00 04/24/18 15:00 04/24/18 15:33 Temperature Pulse Rate 94 H 98 H Respiratory Rate 16 26 H 22 Blood Pressure 176/78 H 182/79 H Pulse Oximetry 92 L 91 L 04/24/18 16:00 04/24/18 16:02 04/24/18 17:00 Temperature 98.7 F Pulse Rate 97 H 97 H 100 H Respiratory Rate 21 16 24 Blood Pressure 164/77 H 183/75 H Pulse Oximetry 96 95 04/24/18 18:00 04/24/18 19:00 04/24/18 19:24 Temperature Pulse Rate 97 H 106 H Respiratory Rate 28 H 24 18 Blood Pressure 153/80 H 165/75 H Pulse Oximetry 93 L 92 L 04/24/18 19:37 04/24/18 20:00 04/24/18 20:05 Temperature 100.0 F H Pulse Rate 96 H 96 H Respiratory Rate 18 18 16 Blood Pressure 149/72 H Pulse Oximetry 98 94 L 04/24/18 22:00 04/24/18 23:19 04/24/18 23:25 Temperature Pulse Rate 96 H 99 H Respiratory Rate 24 18 Blood Pressure Pulse Oximetry 04/25/18 00:00 04/25/18 00:26 04/25/18 00:30 Temperature Pulse Rate 98 H Respiratory Rate 20 Blood Pressure Pulse Oximetry 99 98 98 04/25/18 01:00 04/25/18 02:00 04/25/18 02:49 Temperature Pulse Rate 93 H 89 89 Respiratory Rate 14 11 L Blood Pressure 152/69 H Pulse Oximetry 97 04/25/18 03:49 04/25/18 04:00 04/25/18 06:00 Temperature 99.1 F Pulse Rate 99 H 100 H Respiratory Rate 20 Blood Pressure 148/71 H Pulse Oximetry 98 94 L 04/25/18 06:31 04/25/18 07:00 04/25/18 08:00 Temperature Pulse Rate 97 H Respiratory Rate 20 20 Blood Pressure Pulse Oximetry 94 L Intake & Output 04/24/18 04/25/18 04/25/18 18:59 06:59 18:59 Intake Total 940 / 940 410 / 410 Output Total 0 / 0 Balance 940 / 940 410 / 410 Weight 121.7 kg Intake: IV 100 / 100 50 / 50 Zosyn 2.25 GM Premix 2.25 gm In 100 / 100 50 / 50 50 ml @ 100 mls/hr IV.SIG Q8H [facility] Rx#:[id number] Oral 840 / 840 360 / 360 Output: Urine 0 / 0 Other: Date of Last Bowel Movement 04/24/18 04/25/18 # Bowel Movements 1 2 Laboratory Results - last 24 hr 04/24/18 04/24/18 04/24/18 11:45 16:22 19:27 WBC RBC Hgb Hct MCV MCH MCHC RDW Plt Count MPV Neut % (Auto) Lymph % (Auto) [place] % (Auto) Eos % (Auto) Baso % (Auto) Neut # (Auto) Lymph # (Auto) [place] # (Auto) Eos # (Auto) Baso # (Auto) WBC Differential Differential Comment PT INR Sodium Potassium Chloride Carbon Dioxide Anion Gap BUN Creatinine Estimated GFR POC Glucose 202 H 150 H 152 H Random Glucose Calcium Phosphorus Magnesium 04/24/18 04/25/1819 23:55 04:11 07:54 WBC RBC Hgb Hct MCV MCH MCHC RDW Plt Count MPV Neut % (Auto) Lymph % (Auto) [place] % (Auto) Eos % (Auto) Baso % (Auto) Neut # (Auto) Lymph # (Auto) [place] # (Auto) Eos # (Auto) Baso # (Auto) WBC Differential Differential Comment PT INR Sodium Potassium Chloride Carbon Dioxide Anion Gap BUN Creatinine Estimated GFR POC Glucose 155 H 141 H 141 H Random Glucose Calcium Phosphorus Magnesium 04/25/18 04/25/18 04/25/18 08:14 08:14 08:14 WBC 15.3 H RBC 3.35 L Hgb 9.2 L Hct 29.0 L MCV 86.4 MCH 27.5 MCHC 31.9 L RDW 17.6 H Plt Count 200 MPV 8.7 Neut % (Auto) 84.7 H Lymph % (Auto) 5.1 L [place] % (Auto) 8.5 H Eos % (Auto) 1.4 Baso % (Auto) 0.3 Neut # (Auto) 12.9 H Lymph # (Auto) 0.8 L [place] # (Auto) 1.3 H Eos # (Auto) 0.2 Baso # (Auto) 0.1 WBC Differential . Differential Comment Auto diff final PT 12.2 H INR 1.2 Sodium 134 L Potassium 4.2 Chloride 92 L Carbon Dioxide 24.5 Anion Gap 18 H BUN 77 H Creatinine 9.69 H Estimated GFR 6 L POC Glucose Random Glucose 128 H Calcium 9.1 Phosphorus 9.2 H Magnesium 3.0 H Microbiology 04/24/18 13:51 Aerobic Blood Culture - Preliminary Blood - Peripheral No growth in 1 day Anaerobic Blood Culture - Preliminary No growth in 1 day 04/24/18 13:56 Aerobic Blood Culture - Preliminary Blood - Peripheral No growth in 1 day Anaerobic Blood Culture - Preliminary No growth in 1 day Impressions Venous Doppler Study 04/24/18 00:00 CONCLUSION: 1. The study is negative for upper extremity deep venous thrombosis. Chest X-Ray 04/25/18 04:00 CONCLUSION: No significant interval change
[2018-04-25] MEDS ORDERED: Heparin 10,000 UNITS/10 ML Vial (for IV use) ONE (12:35)
[2018-04-25] MEDS ORDERED: fentaNYL Citrate Inj 100 MCG/2 ML Ampul ONE ×2 (12:35→13:46)
[2018-04-25] MEDS ORDERED: Iohexol 350 MG/ML 100 ML Vial (for Cath Lab) IVCONTRAST ONE (13:00)
--- NOTE | 2018-04-25 13:06 | P.PNNP ---
Subjective Interval history: Patient was seen, no distress, states he feels better everyday. Patient was nervous about cardiac cath today. Patient to be dialyzed after cardiac cath today. <Leeann Mcgarry - Last Filed: 04/25/18 17:25> Physical Exam Vital signs: Vital Signs 04/24/18 13:00 04/24/18 14:00 04/24/18 15:00 Temperature Pulse Rate 100 H 94 H 98 H Respiratory Rate 25 H 16 26 H Blood Pressure 168/79 H 176/78 H 182/79 H Pulse Oximetry 94 L 92 L 91 L 04/24/18 15:33 04/24/18 16:00 04/24/18 16:02 Temperature Pulse Rate 97 H 97 H Respiratory Rate 22 21 16 Blood Pressure 164/77 H Pulse Oximetry 96 04/24/18 17:00 04/24/18 18:00 04/24/18 19:00 Temperature 98.7 F Pulse Rate 100 H 97 H 106 H Respiratory Rate 24 28 H 24 Blood Pressure 183/75 H 153/80 H 165/75 H Pulse Oximetry 95 93 L 92 L 04/24/18 19:24 04/24/18 19:37 04/24/18 20:00 Temperature 100.0 F H Pulse Rate 96 H 96 H Respiratory Rate 18 18 18 Blood Pressure 149/72 H Pulse Oximetry 98 94 L 04/24/18 20:05 04/24/18 21:00 04/24/18 22:00 Temperature Pulse Rate 98 H 96 H Respiratory Rate 16 20 15 Blood Pressure 178/84 H 187/76 H Pulse Oximetry 93 L 93 L 04/24/18 23:00 04/24/18 23:19 04/24/18 23:25 Temperature Pulse Rate 97 H 99 H Respiratory Rate 15 24 18 Blood Pressure Pulse Oximetry 04/25/18 00:00 04/25/18 00:26 04/25/18 00:30 Temperature Pulse Rate 98 H Respiratory Rate 20 Blood Pressure Pulse Oximetry 94 L 98 98 04/25/18 00:59 04/25/18 01:00 04/25/18 02:00 Temperature Pulse Rate 95 H 93 H 89 Respiratory Rate 17 12 15 Blood Pressure 148/67 H 152/69 H 133/63 Pulse Oximetry 97 97 98 04/25/18 02:49 04/25/18 03:00 04/25/18 03:49 Temperature Pulse Rate 89 88 Respiratory Rate 11 L 12 Blood Pressure 134/64 Pulse Oximetry 99 98 04/25/18 04:00 04/25/18 05:00 04/25/18 06:00 Temperature 99.1 F Pulse Rate 99 H 96 H 100 H Respiratory Rate 20 14 22 Blood Pressure 148/71 H Pulse Oximetry 94 L 91 L 87 L 04/25/18 06:31 04/25/18 06:53 04/25/18 07:00 Temperature Pulse Rate 98 H 99 H Respiratory Rate 20 19 24 Blood Pressure 175/74 H 176/74 H Pulse Oximetry 88 L 90 L 04/25/18 08:00 04/25/18 09:00 04/25/18 10:00 Temperature 97.8 F Pulse Rate 99 H 97 H 109 H Respiratory Rate 20 16 27 H Blood Pressure 167/74 H 144/65 H Pulse Oximetry 91 L 93 L 92 L 04/25/18 11:00 Temperature Pulse Rate 101 H Respiratory Rate 16 Blood Pressure Pulse Oximetry 91 L Intake & Output 04/24/18 04/25/18 04/25/18 18:59 06:59 18:59 Intake Total 940 / 940 410 / 410 Output Total 0 / 0 Balance 940 / 940 410 / 410 Weight 121.7 kg Intake: IV 100 / 100 50 / 50 Zosyn 2.25 GM Premix 2.25 gm In 100 / 100 50 / 50 50 ml @ 100 mls/hr IV.SIG Q8H [facility] Rx#:[id number] Oral 840 / 840 360 / 360 Output: Urine 0 / 0 Other: Date of Last Bowel Movement 04/24/18 04/25/18 04/25/18 # Bowel Movements 1 2 Narrative: GENERAL: Well-developed well-nourished. In no acute distress. NECK: No carotid bruits. No JVD. CARDIOVASCULAR: Regular rate and rhythm. No murmur appreciated. RESPIRATORY: No accessory muscle use. Clear to auscultation. Breath sounds equal bilaterally. MUSCULOSKELETAL: No clubbing or cyanosis. No edema. NEUROLOGICAL: Awake and alert. Normal speech. <Leeann Mcgarry - Last Filed: 04/25/18 17:25> Vital signs: Vital Signs 04/25/18 06:31 04/25/18 06:53 04/25/18 07:00 Temperature Pulse Rate 98 H 99 H Respiratory Rate 20 19 24 Blood Pressure 175/74 H 176/74 H Pulse Oximetry 88 L 90 L 04/25/18 08:00 04/25/18 09:00 04/25/18 10:00 Temperature 97.8 F Pulse Rate 99 H 97 H 109 H Respiratory Rate 20 16 27 H Blood Pressure 167/74 H 144/65 H Pulse Oximetry 91 L 93 L 92 L 04/25/18 11:00 04/25/18 14:32 04/25/18 14:34 Temperature Pulse Rate 101 H 104 H 103 H Respiratory Rate 16 31 H 13 Blood Pressure 161/89 H Pulse Oximetry 91 L 99 04/25/18 14:35 04/25/18 14:45 04/25/18 15:00 Temperature Pulse Rate 101 H 106 H 101 H Respiratory Rate 39 H 20 Blood Pressure 168/92 H 172/88 H Pulse Oximetry 04/25/18 15:15 04/25/18 15:30 04/25/18 15:45 Temperature Pulse Rate 100 H 100 H 101 H Respiratory Rate 20 21 21 Blood Pressure 179/85 H 184/86 H 175/80 H Pulse Oximetry 97 93 L 04/25/18 16:00 04/25/18 16:15 04/25/18 16:30 Temperature 98.4 F Pulse Rate 97 H 97 H 98 H Respiratory Rate 13 12 11 L Blood Pressure 168/77 H 169/74 H 169/77 H Pulse Oximetry 94 L 94 L 94 L 04/25/18 16:45 04/25/18 17:00 04/25/18 17:15 Temperature Pulse Rate 99 H 99 H 97 H Respiratory Rate 12 12 12 Blood Pressure 166/74 H 166/77 H 164/73 H Pulse Oximetry 94 L 94 L 95 04/25/18 17:30 04/25/18 18:00 04/25/18 19:00 Temperature Pulse Rate 97 H 109 H 105 H Respiratory Rate 11 L 20 25 H Blood Pressure 155/70 H 157/75 H 163/72 H Pulse Oximetry 94 L 90 L 95 04/25/18 19:56 04/25/18 20:00 04/25/18 20:33 Temperature 98.1 F Pulse Rate 99 H 104 H Respiratory Rate 18 10 L 18 Blood Pressure 145/64 H Pulse Oximetry 95 94 L 04/25/18 21:00 04/25/18 22:00 04/25/18 22:40 Temperature Pulse Rate 101 H 98 H Respiratory Rate 13 11 L 18 Blood Pressure 149/65 H 147/65 H Pulse Oximetry 95 95 04/25/18 22:46 04/25/18 23:00 04/26/18 00:00 Temperature 98.3 F Pulse Rate 95 H 93 H Respiratory Rate 10 L 23 Blood Pressure 132/59 L 128/59 L Pulse Oximetry 97 97 97 04/26/18 00:16 04/26/18 01:00 04/26/18 01:01 Temperature Pulse Rate 92 H Respiratory Rate 12 16 Blood Pressure 125/61 Pulse Oximetry 97 98 04/26/18 02:00 04/26/18 03:00 04/26/18 03:57 Temperature Pulse Rate 89 90 101 H Respiratory Rate 11 L 15 15 Blood Pressure 124/57 L 124/58 L Pulse Oximetry 97 97 93 L 04/26/18 04:00 04/26/18 04:43 Temperature 98.1 F Pulse Rate 102 H Respiratory Rate 32 H 16 Blood Pressure 136/70 Pulse Oximetry 99 Intake & Output 04/25/18 04/25/18 04/26/18 06:59 18:59 06:59 Intake Total 410 / 410 1120 / 1120 400 / 400 Output Total 3000 / 3000 Balance 410 / 410 -1880 / -1880 400 / 400 Weight 121.7 kg Intake: IV 50 / 50 570 / 570 400 / 400 Zyvox 600 mg Premix 300 ML @ 300 / 300 300 mls/hr IV.SIG Q12H [facility] Rx#: [id number] Zosyn 2.25 GM Premix 2.25 gm In 50 / 50 50 / 50 100 / 100 50 ml @ 100 mls/hr IV.SIG Q8H [facility] Rx#:[id number] Vancomycin Inj 2,000 MG In NS 520 / 520 Inj 500 ML @ 250 mls/hr IV.SIG WITH DIALYSIS [facility] Rx#:[id number] Oral 360 / 360 500 / 500 Anesthesia Amount 50 / 50 Output: Hemodialysis Amount 3000 / 3000 Other: Date of Last Bowel Movement 04/25/18 04/25/18 04/25/18 # Bowel Movements 2 <Tramaine Dixon - Last Filed: 04/26/18 06:17> Assessment and Plan - Assessment (1) End stage renal disease Code(s): N18.6 - End stage renal disease Status: Acute Plan: Pateint with ESRD, on Home HD. Patient getting dialysis MWF while hospitalized. Hemodialysis to be done today after cardiac cath. Monitor fluid and electrolytes. (2) Hypertension Code(s): I10 - Essential (primary) hypertension Status: Acute Qualifiers: Hypertension type: essential hypertension Qualified Code(s): I10 - Essential (primary) hypertension Plan: Continue to monitor. Patient on hydralazine. (3) Diabetes Code(s): E11.9 - Type 2 diabetes mellitus without complications Status: Acute Qualifiers: Diabetes mellitus terminal carman insulin use: unspecified mcc insulin use status Plan: Monitor blood glucose.Insulin coverage to maintain blood glucose levels between 140 and 180 while hospitalized. (4) Cardiopulmonary arrest with successful resuscitation Code(s): I46.9 - Cardiac arrest, cause unspecified Status: Acute Plan: Cardiology consulted, cardiac cath today.. (5) Metabolic bone disease Code(s): E88.9 - Metabolic disorder, unspecified; M90.80 - Osteopathy in diseases classified elsewhere, unspecified site Status: Acute Plan: Sensipar has been held due to hypocalcemia. PTH level 1954, patient on Calcitriol 0.5 mcg po daily. Monitor phosphorus intermittently, patient is on PhosLo. Phos 9.2. Was reviewing chart and patient has refused some doses. Patient needs to take the binder with meals. <Leeann Mcgarry - Last Filed: 04/25/18 17:25> - Assessment (1) End stage renal disease Code(s): N18.6 - End stage renal disease Status: Acute (2) Hypertension Code(s): I10 - Essential (primary) hypertension Status: Acute Qualifiers: Hypertension type: essential hypertension Qualified Code(s): I10 - Essential (primary) hypertension (3) Diabetes Code(s): E11.9 - Type 2 diabetes mellitus without complications Status: Acute Qualifiers: Diabetes mellitus terminal carman insulin use: unspecified mcc insulin use status (4) Cardiopulmonary arrest with successful resuscitation Code(s): I46.9 - Cardiac arrest, cause unspecified Status: Acute (5) Metabolic bone disease Code(s): E88.9 - Metabolic disorder, unspecified; M90.80 - Osteopathy in diseases classified elsewhere, unspecified site Status: Acute - Attending Attestation patient was seen and examined on 04/25/18. Agree with above assessment and plan. <Tramaine Dixon - Last Filed: 04/26/18 06:17>
[2018-04-25] MEDS ORDERED: Adenosine Inj 6 MG/2 ML Syringe IV.PUSH ONE (13:22)
[2018-04-25] MEDS ORDERED: Acetaminophen 325 MG Tablet PO PRN (13:59)
[2018-04-25] MEDS ORDERED: Misc Info for Pharmacy OTHER STA (13:59)
--- NOTE | 2018-04-25 14:06 | P.PCN ---
Date of procedure: 04/25/18 Pre-op diagnosis: Non-ST elevation myocardial infarction Procedure: water treatment operator: Trung Arredondo MD Procedure performed: 1. Fluoroscopy with interpretation 2. Coronary angiography 3. Coronary artery bypass graft angiography Methods: Risks, benefits, and alternatives were discussed with the patient. Patient understood and consented to the procedure. Patient was brought into the cardiac catheterization lab placed in the catheterization table. Right groin was prepped and draped in a sterile fashion. Left groin was anesthetized with 1% lidocaine. Left femoral vein was accessed and a 7 [place] 11 cm sheath was placed without difficulty. The left common femoral artery was cannulated under fluoroscopic guidance and a 5 [place] 11 cm sheath was placed without difficulty. Coronary angiography: Left coronary circulation selectively engaged with a 5 [place] JL 4.0 catheter and right coronary circulations selectively engaged with a 5 [place] JR4 catheter. 1. Left main coronary has 50% distal bifurcation stenosis 2. The left anterior descending coronary artery was 100% occluded in the proximal segment 3. Left circumflex originates is 100% occluded and heavily calcified in the proximal segment 4. Right coronary artery is dominant vessel giving rise to posterior descending coronary artery. The right coronary artery occluded in the proximal segment. Coronary artery bypass graft angiography: 1. Left internal mammary to left anterior descending coronary artery is widely patent. Left anterior descending coronary has minor luminal irregularities 2. Saphenous vein graft to the right coronary artery has 75% stenosis in the mid body of the graft and a 90% calcific stenosis in a small posterior descending branch. 3. Saphenous vein graft to the diagonal branch has a 90% stenosis in the mid of the graft. Next Percutaneous coronary intervention: The saphenous vein graft to the diagonal branch was selectively engaged with a 6 [place] LCB guide catheter after advancing a 6 [place] 25 cm Terumo sheath of the left common iliac artery. A 0.014 280 cm Terumo run through wire was navigated down the distal diagonal branch. A guide liner catheter was then advanced into the graft for additional support. A 3.0 x 20 mm you for balloon was then deployed on 3 sequential inflations in the mid body of the graft. Repeat angiography showed PAZ-3 flow but still severe residual stenosis. A 3.0 x 34 mm Rx resolute Wily drug-eluting stent was advanced onto the mid segment of the graft and deployed repeat angiography showed no residual stenosis with PAZ-3 flow. Guide liner was removed sheath was removed and Perclose device deployed with good hemostasis. Heparin was administered throughout the entire procedure to maintain appropriate anticoagulation. Conclusions: 1. Severe picayune three-vessel coronary artery disease 2. 3/6 coronary bypass grafts are patent. Severe disease within the saphenous vein graft to the right coronary artery and a saphenous vein graft to the diagonal branch. 3. Successful percutaneous coronary intervention with drug-eluting stent to the mid body of the saphenous vein graft to diagonal branch. Plan: We will monitor patient for any postprocedural complications. Plan for guideline directed medical therapy. Anticipate dialysis later today The posterior descending branch is very small caliber size and there is a lot of calcification at the bifurcation which would make the likelihood of a successful long-term revascularization, not very likely. This point we will continue with aggressive medical management see how he does. I do still think that his respiratory distress is much more pulmonary than it is cardiac etiology. Monitor closely for any left groin bleeding.
--- NOTE | 2018-04-25 14:14 | CATHPROC ---
What's Trending HIS Report Study Information Study Number Admission Scheduled Start Study Start [id number] Apr 11 2018 12:17PM 04/25/2018 Apr 25 2018 11:35AM [place] Service Cardiac Catheterization Admit Source Facility Department Other [facility] - [employer] Physician and Clinical Staff Initial Ramos Valente Cena Lazara Jacinto RN Recorder Eneida Alonso ,RT(R) Scrub Purnima Holguin,RT(R) (BS) Procedures Performed Procedure Location (Site) Vessel Name Coronary Angiograms RCA Right Coronary Coronary Angiograms JONES-LAD Left Coronary Coronary Angiograms SVG-DIAG Left Coronary Coronary Angiograms SVG-RCA Right Coronary Coronary Angiograms Gft. Stump 1 SVG Graft Drug Eluting Inflatio SVG-DIAG Left Coronary L Heart Cath PTCA SVG-DIAG Left Coronary Radiation Dosage Wire insertion Fem Art (left) Femoral Art Equipment Time Molder Wax Ball Description Size Mfg Part Number Used/Scraped COPILOT VALVE, BLEEDBACK [id number] 13:18 [employer] Used CONTROL *[id number] PERCLOSE, PRO GLIDE CLOSER 13:42 [employer] FR 6 [address] *[id number] Used DEVICE TRANSDUCER, TRUWAVE [id number] 11:42 LANDIN CHEN * Used W/STOCKCOCK *[id number] 534-560T *[id number] 534-520T *[id number] 534-521T *[id number] [id number] *[id number] 534-542T *[id number] 11:42 [employer]ebol BLANKET,WARM AIR CCL * Used *[id number] 11:42 [employer]ol PACK, CCL CUSTOM * Used *[id number] 11:42 [place] PACER PEN, SKIN DUAL W/ RULER * Used *[id number] 13:19 MEDTRONIC BALLOON, 3.0 X 20MM EUPHORA 20MM Used *[id number] 13:26 MEDTRONIC STENT, 3.0 34MM ALVARO 3.0 34MM [id number] Used [id number] 13:18 [employer] MEDICAL 30 YOBANI INDEFLATOR Used *[id number] 11:42 [employer] MEDICAL WIRE, 3MMJ .035 180CM 180CM Used *[id number] 11:55 [employer] MEDICAL WIRE, EXCHANGE 260CM 3MMJ 260CM Used *[id number] 11:42 NAMIC MANIFOLD, 4 PORT * Used *[id number] 11:42 NYCOMED OMNIPAQUE, 350 MG, 150ML 150ML [id number] Used 13:27 NYCOMED OMNIPAQUE, 350 MG, 150ML 150ML [id number] Used [id number] 11:42 TERUMO MEDICAL SHEATH, FR5 TERUMO (10CM) FR 5 Used *[id number] [id number] 13:04 [employer]UM[employer] MEDICAL SHEATH, FR5 TERUMO (25CM) FR 5 Used *3375432 [id number] 13:42 TERUMO MEDICAL SHEATH, FR6 TERUMO (10CM) FR 6 Used *[id number] 13:16 TERUMO MEDICAL SHEATH, FR6 TERUMO (25CM) FR 6 Used *[id number] WIRE, RUNTHROUGH NS FLOPPY [id number] 13:17 TERUMO MEDICAL 180CM Used .014 180CM *[id number] 13:29 VASCULAR SOLUTIONS CATHETER, FR6 GUIDELINER FR 6 5571 *[id number] Used Equipment Model, Serial, Lot Number and Expiration Data Description Model Number Serial Number Lot Number Expiration Date STENT, 3.0 34MM LAVARO [id number] 12-18-2019 History: Current Medications Medication Dosage/Unit Route Frequency Last Date/Time Taken Statins (any) Imdur ASA History: Allergies Allergy Reaction No Known Allergies History: Risk Factors Hypertension Dyslipidemia Previous AL Previous Heart Failure Yes Yes No No Prior Valve Prior PCI Prior PCIDate Prior CABG Prior CABGDate Surgery No Yes 03/15/2015 Yes 03/15/2003 Cerebrovascular Peripheral Artery Chronic Lung On Dialysis Diabetes Disease Disease Disease Yes No Yes Yes Yes History: Other Current Smoker Quit Packs a Day Years Used Pack Years No 14 Years Ago 1 10 10 Labs Hgb (g/dl) Hct (%) WBC (l/cumm) Platelets (thousands) 11.60-17.00 35.00-51.00 4.00-11.00 150.00-450.00 8.7 27.8 13 191 Glucose (mg/dl) BUN (mg/dl) Creatinine (mg/dl) BUN:Creatinine (1:x) 74.00-106.00 7.00-18.00 0.50-1.30 10.00-20.00 119 57 6.7 8.5 Na (meq/l) K (meq/l) 136.00-145.00 3.50-5.10 138 3.9 Troponin I (ng/ml) CPK-MB (ng/ML) 0.02-0.05 0.50-3.60 0.12 Not Drawn Medication Medication Total Dose (Bolus/Oral) Medication Total Dosage/Unit 1% XYLOCAINE 15 mL FENTANYL 150 mcg HEPARIN 6000 units PLAVIX 600 mg VERSED 2 mg Medications (Bolus/Oral) Medication Time Given Dosage/Unit Administered By Reason VERSED 04/25/2018 12:55:22 PM 1 mg Lazara Jacinto 1 mg VERSED given in lab by Lazara Jacinto RN via Peripheral IV. Ordered by Ramos Arredondo. FENTANYL 04/25/2018 12:56:27 PM 25 mcg Francia Jacintoara 25 mcg FENTANYL given in lab by Lazara Jacinto RN via Peripheral IV. Ordered by Ramos Arredondo. FENTANYL 04/25/2018 1:00:00 PM 50 mcg Lazara Jacinto 50 mcg FENTANYL given in lab by Lazara Jacinto RN via Peripheral IV. Ordered by Ramos Arredondo. 1% XYLOCAINE 04/25/2018 1:01:45 PM 15 mL Ramos Arredondo 15 mL 1% XYLOCAINE given in lab by Ramos Arredondo in Left Groin via Subcutaneous. Ordered by Janine Arredondo. HEPARIN 04/25/2018 1:18:18 PM 6000 units Lazara Jacinto 6000 units HEPARIN given in lab by Lazara Jacinto RN via Peripheral IV. Ordered by Ramos Arredondo. VERSED 04/25/2018 1:28:00 PM 1 mg Lazara Jacinto 1 mg VERSED given in lab by Lazara Jacinto RN via Peripheral IV. Ordered by Ramos Arredondo. FENTANYL 04/25/2018 1:29:24 PM 25 mcg Lazara Jacinto 25 mcg FENTANYL given in lab by Lazara Jacinto RN via Peripheral IV. Ordered by Ramos Arrdeondo. FENTANYL 04/25/2018 1:40:58 PM 50 mcg Lazara Jacinto 50 mcg FENTANYL given in lab by Lazara Jacinto RN via Peripheral IV. Ordered by Ramos Arredondo. PLAVIX 04/25/2018 1:50:00 PM 600 mg Lazara Jacinto 600 mg PLAVIX given in lab by Lazara Jacinto, RN via Oral. Ordered by Ramos Arredondo. Medication (Drip) Medication Time Given Dosage/Unit Concentration/Unit Diluent (ml) Solution IV Solutions 04/25/2018 12:08:29 PM 50 mL (IV) NaCl .9 Patient arrived on IV Solutions via Peripheral IV. Pump/Drip Flow using NaCl .9. Initial Case Assessment Cardiovascular HR NIBP 96 156/73 Edema Present Skin color Skin None Normal Warm Dry Circulatory - Right Pulses Dorsalis Pedis Femoral 1 1 Scale (0,1,2,3,4,d) Circulatory - Left Pulses Dorsalis Pedis Femoral 2 2 Scale (0,1,2,3,4,d) Neurological State Oriented to time-place- Alert Moves all extremities person Respiration - General Respiration Rate SpO2 (%) O2 (lpm) (B/min) 17 90 6 Final Case Assessment Cardiovascular HR NIBP 96 141/76 Edema Present Skin color Skin None Normal Warm Dry Circulatory - Right Pulses Dorsalis Pedis Femoral 1 1 Scale (0,1,2,3,4,d) Circulatory - Left Pulses Dorsalis Pedis Femoral 2 2 Scale (0,1,2,3,4,d) Neurological State Oriented to time-place- Alert Moves all extremities person Respiration - General Respiration Rate SpO2 (%) O2 (lpm) (B/min) 17 90 6 Chronological Log Time Study Chronological Log 12:01:51 Patient arrived via Bed. 12:01:56 Patient Name, D.O.B, / Armband Verified By R.N. 12:08:13 Consent signed by the physician and the patient and verified by the [employer] staff. 12:08:14 Pre-op and post- op instructions given; patient acknowledges understanding of instructions. 12:08:15 Verbal Stimulation=2 Physical Stimulation=2 Airway=2 Respiration=2 TOTAL=8. (0=absent, 1=li mited, 2=present) 12:08:17 Immediate Presedation assesment performed by physician. 12:08:20 Patient has been NPO for More than 6Hrs. 12:08:21 Skin Breakdown- mulitple breakdowns, see chart 12:08:22 Patient Warmer Placed on the Table. 12:08:27 Ivis Prominences Protected 12:08:28 A # 20 IV was noted in the Forearm (right). Grade = 0 12:08:29 Patient arrived on IV Solutions via Peripheral IV. Pump/Drip Flow using NaCl .9. 12:08:30 History and physical on the chart or being dictated. Assessment: Initial Case, HR=96 BPM, DOGT=277/73 mmhg, Edema=None, Color=Normal, Skin = Warm, D ry Right Pulses: Sumit Ped=1, Femoral=1 12:08:31 Left Pulses: Sumit Ped=2, Femoral=2 Neurological: State=Alert, Ox3, SHEEHAN Respiration: Resp=17 B/min, SpO2=90 %, O2=6 lpm Vitals capture started with the following parameters, Patient=Adult, Interval=5 min, Initial Pr bgmbse=475 mmHg, 12:13:44 Deflation Rate=5 mmHg, Cuff placed on Left Arm 12:14:20 KLII=920/79 mmhg, SpO2=91.0 % 12:19:25 HR=98 bpm, XLEW=049/76 mmhg, SpO2=92.0 %, Resp=15 B/min 12:24:24 HR=98 bpm, PMIN=350/79 mmhg, SpO2=91.0 %, Resp=17 B/min 12:29:27 HR=98 bpm, WTIG=474/77 mmhg, SpO2=90.0 %, Resp=17 B/min 12:34:26 HR=97 bpm, NBSK=623/73 mmhg, SpO2=89.0 %, Resp=16 B/min, Nona=10, Hernandez=2 12:36:46 Right groin prepped with 2% chlorhexidine, and draped after a 3 min. waiting time. 12:38:28 Reference ECG taken 12:39:14 MD paged 12:39:27 HR=95 bpm, FNFG=639/74 mmhg, SpO2=91.0 %, Resp=11 B/min, Nona=10, Hernandez=2 12:41:06 Pressure channel 1 zeroed. 12:44:30 HR=97 bpm, UDHB=713/72 mmhg, SpO2=89.0 %, Resp=19 B/min 12:49:25 LY=932 bpm, KZWZ=562/74 mmhg, SpO2=87.0 %, Resp=22 B/min 12:50:56 MD responded 12:54:16 MD arrived. 12:54:28 HR=94 bpm, KEFO=169/71 mmhg, SpO2=95.0 %, Resp=11 B/min 12:55:22 1 mg VERSED given in lab by Lazara Jacinto, RN via Peripheral IV. Ordered by Juan Luis Arredondo Time Out. Correct patient, correct procedure, correct physician, labs, allergies, and equipment verified with pit laborer 12:55:33 team present. Fire risk assesment completed (see hard stop sheet for coding). Time Out Conc urred by MD and individual staff in procedure. 12:56:27 25 mcg FENTANYL given in lab by Lazara Jacinto, RN via Peripheral IV. Ordered by St sia Arredondo. 12:59:29 HR=98 bpm, LNHC=049/75 mmhg, SpO2=94.0 %, Resp=14 B/min, Nona=10, Hernandez=2 13:00:00 50 mcg FENTANYL given in lab by Lazara Jacinto, JOSÉ LUIS via Peripheral IV. Ordered by St sia Arredondo. 13:01:44 Case Start 13:01:45 15 mL 1% XYLOCAINE given in lab by Ramos Arredondo in Left Groin via Subcutaneous. Ordered b y Ramos Arredondo. 13:03:19 Access site was Left Femoral Artery. 13:03:51 A SHEATH, FR5 TERUMO (25CM) FR 5 was advanced into the Fem Art (left) using the Percutaneou s technique. 13:04:28 HR=98 bpm, PGKQ=555/75 mmhg, SpO2=94.0 %, Resp=13 B/min, Nona=10, Hernandez=2 A BRANNON INFINITI CATHETER FR 5 was advanced over a wire. OMNIPAQUE, 350 MG, 150ML 150ML was used for 13:04:36 injections. 13:07:14 The JONES-LAD was injected and visualized at various angles. OMNIPAQUE, 350 MG, 150ML 150ML used. A JL 4.0 INFINITI CATHETER FR 5 was advanced over a wire. OMNIPAQUE, 350 MG, 150ML 150ML was us ed for 13:08:51 injections. After removing the current catheter a JR 4.0 INFINITI CATHETER FR 5 was advanced over a WIRE, 3 MMJ .035 180CM 13:09:34 180CM. 13:10:00 HR=98 bpm, TQBB=718/72 mmhg, SpO2=94.0 %, Resp=10 B/min, Nona=10, Hernandez=2 13:12:18 The RCA was injected and visualized at various angles. OMNIPAQUE, 350 MG, 150ML 150ML used . 13:12:25 The SVG-DIAG was injected and visualized at various angles. OMNIPAQUE, 350 MG, 150ML 150ML used. 13:12:55 The Gft. Stump 1 was injected and visualized at various angles. OMNIPAQUE, 350 MG, 150ML 15 0ML used. After removing the current catheter a MPA-2 INFINITI CATHETER FR 5 was advanced over a WIRE, 3M MJ .035 180CM 13:14:27 180CM. 13:14:28 HR=97 bpm, JDYQ=408/77 mmhg, SpO2=95.0 %, Resp=12 B/min, Nona=10, Hernandez=2 Recorded Pressure: Ao, HR=98, Condition=Condition 1 13:15:06 (Aorta) Ao 119/80/99 13:15:25 The SVG-RCA was injected and visualized at various angles. OMNIPAQUE, 350 MG, 150ML 150ML u sed. 13:17:22 Catheter was removed A SHEATH, FR6 TERUMO (25CM) FR 6 was exchanged in the Fem Art (left). This was necessary in ord er to 13:17:24 accomodate a larger catheter. 13:18:18 6000 units HEPARIN given in lab by Lazara Jacinto, JOSÉ LUIS via Peripheral IV. Ordered by Ramos Arredondo. 13:18:49 A LCB GUIDE CATHETER FR 6 was advanced over a wire. OMNIPAQUE, 350 MG, 150ML 150ML was used for injections. 13:20:02 HR=98 bpm, CKSQ=357/76 mmhg, SpO2=94.0 %, Resp=12 B/min, Nona=10, Hernandez=2 13:20:26 A WIRE, RUNTHROUGH NS FLOPPY .014 180CM 180CM was inserted via Fem Art (left). 13:22:36 Interventional wire has crossed the lesion A BALLOON, 3.0 X 20MM EUPHORA 20MM was inserted over WIRE, RUNTHROUGH NS FLOPPY .014 180CM 180C M via 13:22:40 the Fem Art (left). A BALLOON, 3.0 X 20MM EUPHORA 20MM over a WIRE, RUNTHROUGH NS FLOPPY .014 180CM 180CM in the SV G- 13:23:04 DIAG was inflated using a 30 YOBANI INDEFLATOR at 15 yobani for 15 sec. A BALLOON, 3.0 X 20MM EUPHORA 20MM over a WIRE, RUNTHROUGH NS FLOPPY .014 180CM 180CM in the SV G- 13:23:44 DIAG was inflated using a 30 YOBANI INDEFLATOR at 15 yobani for 10 sec. 13:24:12 Balloon Removed. 13:24:31 DS=354 bpm, IFZR=668/73 mmhg, SpO2=94.0 %, Resp=14 B/min, Nona=10, Hernandez=2 A STENT, 3.0 34MM ALVARO 3.0 34MM was advanced through a LCB GUIDE CATHETER FR 6 over a WIRE, RUN THROUGH 13:26:02 NS FLOPPY .014 180CM 180CM. 13:28:00 1 mg VERSED given in lab by Lazara Jacinto, JOSÉ LUIS via Peripheral IV. Ordered by Juan Luis Arredondo 13:29:15 Stent not deployed. Stent removed and intact. 13:29:24 25 mcg FENTANYL given in lab by Lazara Jacinto, JOSÉ LUIS via Peripheral IV. Ordered by St sia Arredondo. 13:29:30 JP=074 bpm, CIJT=927/70 mmhg, SpO2=94.0 %, Resp=14 B/min A CATHETER, FR6 GUIDELINER FR 6 was advanced over a wire. OMNIPAQUE, 350 MG, 150ML 150ML was us ed for ::38 injections. :34:31 EM=231 bpm, VGUY=830/73 mmhg, SpO2=94.0 %, Resp=16 B/min, Nona=10, Hernandez=2 A BALLOON, 3.0 X 20MM EUPHORA 20MM was inserted over WIRE, RUNTHROUGH NS FLOPPY .014 180CM 180C M via 13:36:14 the Fem Art (left). 13:36:23 NIBP STAT measurement started. A BALLOON, 3.0 X 20MM EUPHORA 20MM over a WIRE, RUNTHROUGH NS FLOPPY .014 180CM 180CM in the SV G- 13:36:48 DIAG was inflated using a 30 YOBANI INDEFLATOR at 12 yobani for 30 sec. 13:37:02 NE=307 bpm, JGST=867/75 mmhg, SpO2=95.0 %, Resp=17 B/min, Nona=10, Hernandez=2 13:37:36 Balloon Removed. A STENT, 3.0 34MM ALVARO 3.0 34MM was advanced through a LCB GUIDE CATHETER FR 6 over a WIRE, RUN THROUGH 13:38:42 NS FLOPPY .014 180CM 180CM. A STENT, 3.0 34MM ALVARO 3.0 34MM was deployed using a 30 YOBANI INDEFLATOR at 12 atmospheres for 10 seconds in 13:39:00 the SVG-DIAG. 13:39:18 Delivery device removed 13:40:11 NL=424 bpm, ASYS=551/79 mmhg, SpO2=94.0 %, Resp=14 B/min 13:40:37 Wire removed 13:40:41 Guideliner Catheter was removed 13:40:58 50 mcg FENTANYL given in lab by Lazara Jacinto, JOSÉ LUIS via Peripheral IV. Ordered by St sia Arredondo. 13:41:43 Catheter was removed 13:41:57 Activated Clotting Time Drawn 13:43:24 PERCLOSE, PRO GLIDE CLOSER DEVICE FR 6 placement in the Fem Art (left) 13:44:33 AE=076 bpm, DXSV=907/70 mmhg, SpO2=95.0 %, Resp=15 B/min, Nona=10, Hernandez=2 13:48:16 ACT (Normal Range 90-180) = 192 13:48:34 Case End (Physician broke scrub) Assessment: Final Case, HR=96 BPM, TODC=604/76 mmhg, Edema=None, Color=Normal, Skin = Warm, Dr y Right Pulses: Sumit Ped=1, Femoral=1 13:49:23 Left Pulses: Sumit Ped=2, Femoral=2 Neurological: State=Alert, Ox3, SHEEHAN Respiration: Resp=17 B/min, SpO2=90 %, O2=6 lpm 13:49:30 NT=043 bpm, HSPN=571/92 mmhg, SpO2=94.0 %, Resp=16 B/min, Nona=10, Hernandez=2 13:50:00 600 mg PLAVIX given in lab by Lazara Jacinto, RN via Oral. Ordered by Ramos Arredondo. 13:54:33 RH=223 bpm, JECO=002/76 mmhg, Resp=17 B/min, Nona=10, Hernandez=2 13:55:54 Catheter(s) removed without difficulty 13:55:57 mGy is equal to or greater than 2000 mGy due to: Body Habitus and Complex Procedure 13:56:05 Sterile dressing applied to site 13:56:05 No case complications noted. 13:56:06 Cine recording checked. 13:56:07 Bedside Report will be given. 13:56:08 Implantable Device card placed in patient's chart. 13:56:12 A Left Heart Cath was performed. 13:59:32 MQ=698 bpm, UPQQ=058/77 mmhg, SpO2=95.0 %, Resp=13 B/min, Nona=10, Hernandez=2 14:03:59 Vitals capture stopped. 14:13:[address] [facility] End Study - Contrast Media Used In Study Contrast Total Opened (mL) Total Used (mL) Total Wasted (mL) Omnipaque 175 175 0 End Study - Maximum Contrast Load Max Contrast Load (mL) 90.8 End Study - Radiation Exposure Fluoro Time Fluoro Dose (mGy) Cine Dose (uGym2) (minutes) 14.4 9660 [id number] End Study - Sheaths Sheaths Pulled By Sheath Hold Time (min) Ramos Arredondo End Study - Patient Disposition Complications Transferred To Interventional Outcome No Critical Care Bed successful
--- NOTE | 2018-04-25 15:27 | P.PNID ---
Subjective Remarks: Mr. Salguero is a 57-year-old male with multiple medical problems including end-stage renal disease was on hemodialysis and followed by Dr. Vogel. Patient reports that he is status post renal transplant in 2004 but ended up needing dialysis. Patient reports that he has a left forearm AV fistula which is functional and is being used for hemodialysis. Patient's past medical history is also significant for morbid obesity, coronary artery disease with previous coronary artery bypass grafting in 2003. Per review of records it appears that patient was having a routine colonoscopy and while being sedated he had an asystolic episode. He received 2 rounds of epinephrine and chest compressions were performed. He was initially intubated on arrival to the ER and then subsequently was extubated. On April 15 patient again started having respiratory distress and was intubated again. Patient has been undergoing hemodialysis during this hospitalization. Patient was extubated on April 21, 2017 and has been doing well. Patient's noticed that on the right upper extremity on possibly a IV or blood draw site there was some redness noted and she brought her to the attention of the critical care physician. Due to elevated white count and concern for infection infectious disease was consulted and Dr. Suero personally discussed the case with me. Blood cultures were drawn and patient was empirically started on antibiotics appropriately. At the time of my evaluation patient is in the intensive medical care unit currently awake alert oriented x3. He denies any complaints other than soreness at the site of the right upper extremity AC fossa area with possible phlebitis. Overnight events reviewed. No fever No rash No diarrhea Underwent cardiac cath today. Evaluated by Dr. Frye and recommends removal/excision of the involved vein. Antibiotics: Zosyn IV Vancomycin IV Lines: Line sites with no evidence of infection. Past Medical History: Reviewed. Allergies/Adverse Reactions: Allergies No Known Allergies Allergy (Verified 04/11/18 10:33) Objective Vital Signs 04/24/18 15:33 04/24/18 16:00 04/24/18 16:02 Temperature Pulse Rate 97 H 97 H Respiratory Rate 22 21 16 Blood Pressure 164/77 H Pulse Oximetry 96 04/24/18 17:00 04/24/18 18:00 04/24/18 19:00 Temperature 98.7 F Pulse Rate 100 H 97 H 106 H Respiratory Rate 24 28 H 24 Blood Pressure 183/75 H 153/80 H 165/75 H Pulse Oximetry 95 93 L 92 L 04/24/18 19:24 04/24/18 19:37 04/24/18 20:00 Temperature 100.0 F H Pulse Rate 96 H 96 H Respiratory Rate 18 18 18 Blood Pressure 149/72 H Pulse Oximetry 98 94 L 04/24/18 20:05 04/24/18 21:00 04/24/18 22:00 Temperature Pulse Rate 98 H 96 H Respiratory Rate 16 20 15 Blood Pressure 178/84 H 187/76 H Pulse Oximetry 93 L 93 L 04/24/18 23:00 04/24/18 23:19 04/24/18 23:25 Temperature Pulse Rate 97 H 99 H Respiratory Rate 15 24 18 Blood Pressure Pulse Oximetry 04/25/18 00:00 04/25/18 00:26 04/25/18 00:30 Temperature Pulse Rate 98 H Respiratory Rate 20 Blood Pressure Pulse Oximetry 94 L 98 98 04/25/18 00:59 04/25/18 01:00 04/25/18 02:00 Temperature Pulse Rate 95 H 93 H 89 Respiratory Rate 17 12 15 Blood Pressure 148/67 H 152/69 H 133/63 Pulse Oximetry 97 97 98 04/25/18 02:49 04/25/18 03:00 04/25/18 03:49 Temperature Pulse Rate 89 88 Respiratory Rate 11 L 12 Blood Pressure 134/64 Pulse Oximetry 99 98 04/25/18 04:00 04/25/18 05:00 04/25/18 06:00 Temperature 99.1 F Pulse Rate 99 H 96 H 100 H Respiratory Rate 20 14 22 Blood Pressure 148/71 H Pulse Oximetry 94 L 91 L 87 L 04/25/18 06:31 04/25/18 06:53 04/25/18 07:00 Temperature Pulse Rate 98 H 99 H Respiratory Rate 20 19 24 Blood Pressure 175/74 H 176/74 H Pulse Oximetry 88 L 90 L 04/25/18 08:00 04/25/18 09:00 04/25/18 10:00 Temperature 97.8 F Pulse Rate 99 H 97 H 109 H Respiratory Rate 20 16 27 H Blood Pressure 167/74 H 144/65 H Pulse Oximetry 91 L 93 L 92 L 04/25/18 11:00 04/25/18 14:32 04/25/18 14:34 Temperature Pulse Rate 101 H 104 H 103 H Respiratory Rate 16 31 H 13 Blood Pressure 161/89 H Pulse Oximetry 91 L 99 04/25/18 14:35 04/25/18 14:45 04/25/18 15:00 Temperature Pulse Rate 101 H 106 H 101 H Respiratory Rate 39 H 27 H Blood Pressure 168/92 H 172/88 H Pulse Oximetry 04/25/18 15:15 Temperature Pulse Rate 100 H Respiratory Rate 20 Blood Pressure 179/85 H Pulse Oximetry Intake & Output 04/24/18 04/25/18 04/25/18 18:59 06:59 18:59 Intake Total 940 / 940 410 / 410 100 / 100 Output Total 0 / 0 Balance 940 / 940 410 / 410 100 / 100 Weight 121.7 kg Intake: IV 100 / 100 50 / 50 50 / 50 Zosyn 2.25 GM Premix 2.25 gm In 100 / 100 50 / 50 50 / 50 50 ml @ 100 mls/hr IV.SIG Q8H DOMENICO Rx#:[id number] Oral 840 / 840 360 / 360 Anesthesia Amount 50 / 50 Output: Urine 0 / 0 Other: Date of Last Bowel Movement 04/24/18 04/25/18 04/25/18 # Bowel Movements 1 2 04/24/18 13:51 Blood - Peripheral Aerobic Blood Culture - Preliminary No growth in 1 day 04/24/18 13:51 Blood - Peripheral Anaerobic Blood Culture - Preliminary No growth in 1 day 04/24/18 13:56 Blood - Peripheral Aerobic Blood Culture - Preliminary No growth in 1 day 04/24/18 13:56 Blood - Peripheral Anaerobic Blood Culture - Preliminary No growth in 1 day 04/20/18 12:15 Bronchial - Bronchial Gram Stain - Final 04/20/18 12:15 Bronchial - Bronchial Bronchial Culture - Final Rare growth normal respiratory jose Lab - Hematology Results 04/24/18 04/25/18 05:29 08:14 WBC 13.0 H 15.3 H RBC 3.18 L 3.35 L Hgb 8.7 L 9.2 L Hct 27.8 L 29.0 L MCV 87.5 86.4 MCH 27.4 27.5 MCHC 31.4 L 31.9 L RDW 17.5 H 17.6 H Plt Count 191 200 MPV 8.4 8.7 Neut % (Auto) 80.3 H 84.7 H Lymph % (Auto) 7.2 L 5.1 L [place] % (Auto) 9.8 H 8.5 H Eos % (Auto) 2.5 1.4 Baso % (Auto) 0.2 0.3 Neut # (Auto) 10.4 H 12.9 H Lymph # (Auto) 0.9 L 0.8 L [place] # (Auto) 1.3 H 1.3 H Eos # (Auto) 0.3 0.2 Baso # (Auto) 0.0 0.1 WBC Differential . . Differential Comment Auto diff final Auto diff final Lab - Chemistry Results 04/23/18 04/23/18 04/24/18 15:33 19:17 00:09 Sodium Potassium Chloride Carbon Dioxide Anion Gap BUN Creatinine Estimated GFR POC Glucose 178 H 169 H 142 H Random Glucose Calcium Phosphorus Magnesium 04/24/18 04/24/18 04/24/18 00:59 07:41 11:45 Sodium Potassium Chloride Carbon Dioxide Anion Gap BUN Creatinine Estimated GFR POC Glucose 115 H 202 H Random Glucose Calcium Phosphorus 9.2 H Magnesium 2.8 H 04/24/18 04/24/18 04/24/18 16:22 19:27 23:55 Sodium Potassium Chloride Carbon Dioxide Anion Gap BUN Creatinine Estimated GFR POC Glucose 150 H 152 H 155 H Random Glucose Calcium Phosphorus Magnesium 04/25/18 04/25/18 04/25/18 04:11 07:54 08:14 Sodium 134 L Potassium 4.2 Chloride 92 L Carbon Dioxide 24.5 Anion Gap 18 H BUN 77 H Creatinine 9.69 H Estimated GFR 6 L POC Glucose 141 H 141 H Random Glucose 128 H Calcium 9.1 Phosphorus 9.2 H Magnesium 3.0 H Imaging: ITS Impressions Chest CTA 04/12/18 00:00 CONCLUSION: 1. No CT evidence for pulmonary artery embolism as questioned. 2. Cardiomegaly with trace bilateral pleural effusions and mild airspace consolidation at the lung bases which may reflect compressive atelectasis. Differential considerations include aspiration in the appropriate clinical setting. 3. Trace perihepatic ascites fluid. Venous Doppler Study 04/24/18 00:00 CONCLUSION: 1. The study is negative for upper extremity deep venous thrombosis. Chest X-Ray 04/25/18 04:00 CONCLUSION: No significant interval change Physical Exam: GENERAL: Well-nourished well-developed, not in acute distress SKIN: Cool and dry, no generalized rash HEAD: Atraumatic. Normocephalic. No temporal or scalp tenderness. EYES: Pupils equal round and reactive. Scleral icterus. No injection or drainage. No petechia ENT: Nothing abnormal detected NECK: Trachea midline. Supple, nontender, no meningeal signs. CARDIOVASCULAR: HS audible. RESPIRATORY: Clear to auscultation bilaterally. GASTROINTESTINAL: Abdomen soft nontender. MUSCULOSKELETAL: Extremities without clubbing, cyanosis. Left upper extremity forearm AV fistula site with no evidence of infection. Bruit audible and thrill palpable. Right upper extremity AC fossa area slightly above it there was an area of redness with induration and a cord was palpable. NEUROLOGICAL: Alert oriented 3. Nonfocal. Psych cooperative IV line sites ok. Assessment and Plan - Plan Possible Septic thrombophlebitis ESRD on HD Left AV fistula functional h/o asystole during anaesthesia for Colonoscopy. Recs Continue Zosyn Discontinue vancomycin IV area appears to be more red today Start Zyvox IV will cover for VRE as well. Vein is excised please send cultures so that the remaining vein can be treated accordingly. Discussed with Dr. Medina Follow cultures Follow clinical course. ryan Redd
--- NOTE | 2018-04-25 18:16 | P.PN ---
Subjective Interval history: Was dialyzed earlier today. He is awake and seems somewhat lethargic. On O2 nasal cannula at 3 L. Denies chest pain. Has some leg edema. Physical Exam Vital signs: Vital Signs 04/24/18 19:00 04/24/18 19:24 04/24/18 19:37 Temperature Pulse Rate 106 H 96 H Respiratory Rate 24 18 18 Blood Pressure 165/75 H Pulse Oximetry 92 L 98 04/24/18 20:00 04/24/18 20:05 04/24/18 21:00 Temperature 100.0 F H Pulse Rate 96 H 98 H Respiratory Rate 18 16 20 Blood Pressure 149/72 H 178/84 H Pulse Oximetry 94 L 93 L 04/24/18 22:00 04/24/18 23:00 04/24/18 23:19 Temperature Pulse Rate 96 H 97 H Respiratory Rate 15 15 24 Blood Pressure 187/76 H Pulse Oximetry 93 L 04/24/18 23:25 04/25/18 00:00 04/25/18 00:26 Temperature Pulse Rate 99 H 98 H Respiratory Rate 18 20 Blood Pressure Pulse Oximetry 94 L 98 04/25/18 00:30 04/25/18 00:59 04/25/18 01:00 Temperature Pulse Rate 95 H 93 H Respiratory Rate 17 12 Blood Pressure 148/67 H 152/69 H Pulse Oximetry 98 97 97 04/25/18 02:00 04/25/18 02:49 04/25/18 03:00 Temperature Pulse Rate 89 89 88 Respiratory Rate 15 11 L 12 Blood Pressure 133/63 134/64 Pulse Oximetry 98 99 04/25/18 03:49 04/25/18 04:00 04/25/18 05:00 Temperature 99.1 F Pulse Rate 99 H 96 H Respiratory Rate 20 14 Blood Pressure 148/71 H Pulse Oximetry 98 94 L 91 L 04/25/18 06:00 04/25/18 06:31 04/25/18 06:53 Temperature Pulse Rate 100 H 98 H Respiratory Rate 22 20 19 Blood Pressure 175/74 H Pulse Oximetry 87 L 88 L 04/25/18 07:00 04/25/18 08:00 04/25/18 09:00 Temperature 97.8 F Pulse Rate 99 H 99 H 97 H Respiratory Rate 24 20 16 Blood Pressure 176/74 H 167/74 H 144/65 H Pulse Oximetry 90 L 91 L 93 L 04/25/18 10:00 04/25/18 11:00 04/25/18 14:32 Temperature Pulse Rate 109 H 101 H 104 H Respiratory Rate 27 H 16 31 H Blood Pressure Pulse Oximetry 92 L 91 L 04/25/18 14:34 04/25/18 14:35 04/25/18 14:45 Temperature Pulse Rate 103 H 101 H 106 H Respiratory Rate 13 39 H Blood Pressure 161/89 H 168/92 H Pulse Oximetry 99 04/25/18 15:00 04/25/18 15:15 04/25/18 15:30 Temperature Pulse Rate 101 H 100 H 100 H Respiratory Rate 20 20 21 Blood Pressure 172/88 H 179/85 H 184/86 H Pulse Oximetry 97 04/25/18 15:45 04/25/18 16:00 04/25/18 16:15 Temperature 98.4 F Pulse Rate 101 H 97 H 97 H Respiratory Rate 21 13 12 Blood Pressure 175/80 H 168/77 H 169/74 H Pulse Oximetry 93 L 94 L 94 L Intake & Output 04/24/18 04/25/18 04/25/18 18:59 06:59 18:59 Intake Total 940 / 940 410 / 410 620 / 620 Output Total 0 / 0 3000 / 3000 Balance 940 / 940 410 / 410 -2380 / -2380 Weight 121.7 kg Intake: IV 100 / 100 50 / 50 570 / 570 Zosyn 2.25 GM Premix 2.25 gm In 100 / 100 50 / 50 50 / 50 50 ml @ 100 mls/hr IV.SIG Q8H DOMENICO Rx#:[id number] Vancomycin Inj 2,000 MG In NS 520 / 520 Inj 500 ML @ 250 mls/hr IV.SIG WITH DIALYSIS DOMENICO Rx#:[id number] Oral 840 / 840 360 / 360 Anesthesia Amount 50 / 50 Output: Urine 0 / 0 Hemodialysis Amount 3000 / 3000 Other: Date of Last Bowel Movement 04/24/18 04/25/18 04/25/18 # Bowel Movements 1 2 Narrative: GENERAL: Well-developed well-nourished. In no acute distress. GENERAL: Obese middle-aged white male is awake SKIN: Warm and dry. HEAD: Atraumatic. Normocephalic. EYES: Pupils equal and round. No scleral icterus. No injection or drainage. ENT: No nasal bleeding or discharge. Mucous membranes pink and moist. NECK: Trachea midline. No JVD. CARDIOVASCULAR: Regular rate and rhythm. RESPIRATORY: No accessory muscle use. Few basal crackles with distant breath sounds. Breath sounds equal bilaterally. GASTROINTESTINAL: Abdomen soft, non-tender, nondistended. Hepatic and splenic margins not palpable. MUSCULOSKELETAL: Extremities without clubbing, cyanosis, or edema. No obvious deformities. NEUROLOGICAL: Seems slightly lethargic but moves all extremities PSYCHIATRIC: Cannot assess Results - Labs CBC & Chem 7: 04/25/18 08:14 04/25/18 08:14 Laboratory Results - last 24 hr 04/24/18 04/24/18 04/25/18 19:27 23:55 04:11 WBC RBC Hgb Hct MCV MCH MCHC RDW Plt Count MPV Neut % (Auto) Lymph % (Auto) [place] % (Auto) Eos % (Auto) Baso % (Auto) Neut # (Auto) Lymph # (Auto) [place] # (Auto) Eos # (Auto) Baso # (Auto) WBC Differential Differential Comment PT INR Sodium Potassium Chloride Carbon Dioxide Anion Gap BUN Creatinine Estimated GFR POC Glucose 152 H 155 H 141 H Random Glucose Calcium Phosphorus Magnesium 04/25/18 04/25/18 04/25/18 07:54 08:14 08:14 WBC 15.3 H RBC 3.35 L Hgb 9.2 L Hct 29.0 L MCV 86.4 MCH 27.5 MCHC 31.9 L RDW 17.6 H Plt Count 200 MPV 8.7 Neut % (Auto) 84.7 H Lymph % (Auto) 5.1 L [place] % (Auto) 8.5 H Eos % (Auto) 1.4 Baso % (Auto) 0.3 Neut # (Auto) 12.9 H Lymph # (Auto) 0.8 L [place] # (Auto) 1.3 H Eos # (Auto) 0.2 Baso # (Auto) 0.1 WBC Differential . Differential Comment Auto diff final PT INR Sodium 134 L Potassium 4.2 Chloride 92 L Carbon Dioxide 24.5 Anion Gap 18 H BUN 77 H Creatinine 9.69 H Estimated GFR 6 L POC Glucose 141 H Random Glucose 128 H Calcium 9.1 Phosphorus 9.2 H Magnesium 3.0 H 04/25/18 04/25/18 08:14 16:33 WBC RBC Hgb Hct MCV MCH MCHC RDW Plt Count MPV Neut % (Auto) Lymph % (Auto) [place] % (Auto) Eos % (Auto) Baso % (Auto) Neut # (Auto) Lymph # (Auto) [place] # (Auto) Eos # (Auto) Baso # (Auto) WBC Differential Differential Comment PT 12.2 H INR 1.2 Sodium Potassium Chloride Carbon Dioxide Anion Gap BUN Creatinine Estimated GFR POC Glucose 123 H Random Glucose Calcium Phosphorus Magnesium Microbiology 04/24/18 13:51 Blood - Peripheral Aerobic Blood Culture - Preliminary No growth in 1 day 04/24/18 13:51 Blood - Peripheral Anaerobic Blood Culture - Preliminary No growth in 1 day 04/24/18 13:56 Blood - Peripheral Aerobic Blood Culture - Preliminary No growth in 1 day 04/24/18 13:56 Blood - Peripheral Anaerobic Blood Culture - Preliminary No growth in 1 day - Imaging Impressions Chest X-Ray 04/25/18 04:00 CONCLUSION: No significant interval change Assessment and Plan - Assessment (1) Respiratory failure Code(s): J96.90 - Respiratory failure, unspecified, unspecified whether with hypoxia or hypercapnia Status: Acute (2) Metabolic bone disease Code(s): E88.9 - Metabolic disorder, unspecified; M90.80 - Osteopathy in diseases classified elsewhere, unspecified site Status: Acute (3) Supraventricular arrhythmia Code(s): I49.9 - Cardiac arrhythmia, unspecified Status: Acute (4) End stage renal disease Code(s): N18.6 - End stage renal disease Status: Acute (5) Hypertension Code(s): I10 - Essential (primary) hypertension Status: Acute (6) Diabetes Code(s): E11.9 - Type 2 diabetes mellitus without complications Status: Acute (7) End stage renal disease on dialysis Code(s): N18.6 - End stage renal disease; Z99.2 - Dependence on renal dialysis Status: Acute (8) Cardiopulmonary arrest with successful resuscitation Code(s): I46.9 - Cardiac arrest, cause unspecified Status: Acute (9) End stage renal disease on dialysis Code(s): N18.6 - End stage renal disease; Z99.2 - Dependence on renal dialysis Status: Acute - Plan #1 Continue O2 3L N /C daytime 2. Use BiPAP at at bedtime 12/5 and FiO2 of 30% as needed 3. Incentive spirometry every 2 hours bedside 4. Continue antibiotics as ordered 5. DuoNeb nebs 4 times daily. 6. soft diet 7. CBC BMP PFT in a.m. 8. PT for activity 9. Dialysis as planned (5) Hypertension Qualifiers: Qualified Code(s): I10 - Essential (primary) hypertension
[2018-04-26] MEDS: Insulin NovoLIN Regular Correctional Sugar Inj SQ SCH ×6 (01:01→20:50)
[2018-04-26] MEDS: Piperacil/Tazo 2.25 GM Premix 2.25 GM/50 ML PIGGYBACK IV.SIG SCH ×3 (02:09→17:24)
[2018-04-26 05:07] LABS: Baso % (Auto) 0.3 % (0.0-2.0); Eos # (Auto) 0.1 th/mm3 (0.0-0.4); Eos % (Auto) 1.3 % (0.0-4.0); Hemoglobin 9.1 gm/dL (13.0-17.0); Lymph # (Auto) 0.8 th/mm3 (1.0-4.8); Lymph % (Auto) 7.3 % (9.0-44.0); Mean Corpuscular HGB Conc 31.3 % (32.0-36.0); Mean Corpuscular Hemoglobin 26.7 pg (27.0-34.0); Mean Corpuscular Volume 85.1 fL (80.0-100.0); Mean Platelet Volume 8.5 fL (7.0-11.0); Mono # (Auto) 1.1 th/mm3 (0.0-0.9); Mono % (Auto) 9.3 % (0.0-8.0); Neut # (Auto) 9.5 th/mm3 (1.8-7.7); Neut % (Auto) 81.8 % (16.0-70.0); Platelet Count 193 th/mm3 (150-450); White Blood Count 11.6 th/mm3 (4.0-11.0)
[2018-04-26 05:26] LABS: Calcium 8.9 mg/dL (8.5-10.1); Carbon Dioxide 27.3 meq/L (21.0-32.0); Chol/HDL Ratio 2.41 Ratio; HDL Cholesterol 48.5 mg/dL (40.0-60.0); Potassium 4.1 meq/L (3.5-5.1)
[2018-04-26] MEDS: Isosorbide Mononitrate 60 MG ER 24HR Tablet (Imdur) PO SCH (06:09)
--- NOTE | 2018-04-26 07:28 | MB ---
cc: Klarissa Meade MD DATE: 04/25/2018 CONSULTING PHYSICIAN: Dr. Meade, vascular surgery. REASON FOR CONSULTATION: Septic thrombophlebitis of the right arm and basilic vein, chronic renal failure, coronary artery disease, CHF, and diabetes mellitus. CRITICAL CARE TIME: 42 minutes. HISTORY OF PRESENT ILLNESS: This 57-year-old male appearing much older than his actual age presents with multiple problems. He is on hemodialysis for renal failure and in the process of his hospitalization he was found to have a swollen, red lump on the right antecubital fossa extending toward a basilic vein proximally. Questions arise at what to do with this past the patient. His past medical history is complex. He was admitted to the hospital with shortness of breath and distress. In the process of the workup, underwent colonoscopy, then arrested. He was brought back and now looks pretty good. Hi PAST MEDICAL HISTORY: Coronary artery disease with previous bypass grafting in 2003, chronic renal failure and transplant in 2004, diabetes mellitus, hypertension, hyperlipidemia. PAST SURGICAL HISTORY: As above. Noted. CABG, appendectomy, renal transplant, percutaneous coronary angioplasty and stents, exploratory laparotomy in the past. SOCIAL HISTORY: The patient is a retired [employer], former smoker. Smoked ____ packs a day until 1999 when he had open heart surgery. Does not drink. PHYSICAL EXAMINATION: GENERAL: Reveals a pleasant 57-year-old gentleman appearing older than his actual age. HEENT: Normocephalic. No trauma to the head. Pupils are equal and reactive. Extraocular muscles intact. NECK: Bilateral carotid pulses and bilateral carotid bruits, 3/6. CHEST: Bilateral breath sounds. HEART: Regular rate and rhythm. The patient has decreased breath sounds over both lung mendoza consistent with a moderate degree of COPD. He has some rhonchi over both bases and rales over both bases. A scar from previous sternotomy noted. ABDOMEN: Somewhat distended, soft, obese. Active bowel sounds. EXTREMITIES: The patient has palpable femoral pulses. Distal pulses by Doppler. No signs of acute vascular deficit. Upper arms: The patient has an AV fistula, left forearm, and scars in the groin from previous kidney transplant. In addition, on the right side, the patient has a large lump measuring about an 1-1/2 inches in diameter in the oblique position involving the proximal basilic vein just beyond the antecubital vein. ASSESSMENT AND PLAN: This is a phlebothrombosis and based on the clinical picture, I agree with Dr. Blair that this is probably septic phlebitis. At this point, patient is scheduled to undergo coronary angioplasty. When it is all done and finished, the patient should go to the operating room to have this excised. Excision of this should take about 10 minutes, can be done under local anesthesia with some sedation so the patient does need to be put to sleep. Thank you very much for the referral. Klarissa Meade MD SJ/ll , 11:25 AM , 11:36 AM
[2018-04-26] MEDS: Vitamin B Complex/Vit C/Folic Tablet PO SCH (08:51)
[2018-04-26] MEDS: predniSONE 5 MG Tablet PO SCH (08:55)
[2018-04-26] MEDS: Senna/Docusate Sodium 8.6/50 MG Tablet PO SCH ×2 (08:55→20:51)
[2018-04-26] MEDS: hydrALAZINE 25 MG Tablet PO SCH ×3 (08:55→17:24)
[2018-04-26] MEDS: Calcitriol 0.25 MCG Capsule PO SCH (08:55)
--- NOTE | 2018-04-26 09:00 | P.PNCA ---
Subjective Interval history: No chest pain. Coughing up more phlegm and breathing improving. No issues with right groin access site. Telemetry with no significant arrhythmia noted overnight. Medications and Allergies Active Medications: Active Medications Acetaminophen (Tylenol) 325 mg PO Q4H PRN PRN Reason: PAIN SCALE 1 TO 2 Hydrocodone Bitart/Acetaminophen ([place] 10/325) 1 tab PO Q4H PRN PRN Reason: PAIN SCALE 6 TO 10 Last Admin: 04/26/18 08:54 Dose: 1 tab Albuterol (Duoneb Neb (Chel)) 1 ampul NEB Q6HR NEB [facility] Last Admin: 04/26/18 03:56 Dose: 1 ampul Albuterol (Duoneb Neb (Prn)) 1 ampul NEB Q2HR NEB PRN PRN Reason: WHEEZING Last Admin: 04/19/18 15:39 Dose: 1 ampul Aspirin (Ecotrin) 81 mg PO DAILY [facility] Last Admin: 04/26/18 08:55 Dose: 81 mg Atorvastatin Calcium (Lipitor) 80 mg PO HS [facility] Last Admin: 04/25/18 20:44 Dose: 80 mg Bisacodyl (Dulcolax Supp) 10 mg RECTAL DAILY PRN PRN Reason: SEVERE CONSITIPATION Calcitriol (Rocaltrol) 0.5 mcg PO DAILY [facility] Last Admin: 04/26/18 08:55 Dose: 0.5 mcg Clonidine HCl (Catapres) 0.1 mg PO UNSCH PRN PRN Reason: SEE LABEL COMMENTS Clopidogrel Bisulfate (Plavix) 75 mg PO DAILY [facility] Last Admin: 04/26/18 08:51 Dose: 75 mg Dextrose (D50w Vial) 50 ml IV.PUSH UNSCH PRN PRN Reason: PER HYPOGLYCEMIA PROTOCOL Diphenhydramine HCl (Benadryl) 25 mg PO UNSCH PRN PRN Reason: SEE LABEL COMMENTS Epoetin Gian (Epogen Inj) 4,000 unit IV.PUSH UNSCH PRN PRN Reason: SEE LABEL COMMENTS Last Admin: 04/25/18 15:19 Dose: 4,000 unit Gelatin (Gelfoam 12 Mm/7 Mm Topical) 1 foam TOPICAL PRN PRN PRN Reason: help stop bleeding from site Gentamicin Sulfate (Gentamicin Inj) 20 mg OTHER WITH DIALYSIS PRN PRN Reason: Dwell Gentamycin Lock Glucagon (Glucagon Inj) 1 mg OTHER PRN PRN PRN Reason: for Hypoglycemia Protocol Heparin Sodium (Porcine) (Heparin Inj) 8,000 units OTHER WITH DIALYSIS PRN PRN Reason: for machine prime Heparin Sodium (Porcine) (Heparin Inj) 1,000 units OTHER WITH DIALYSIS PRN PRN Reason: Dwell Heparin to Fill Catheter Hydralazine HCl (Apresoline) 25 mg PO TID [facility] Last Admin: 04/26/18 08:55 Dose: 25 mg Linezolid (Zyvox 600 Mg Premix) 300 mls @ 300 mls/hr IV.SIG Q12H [facility] Last Admin: 04/26/18 08:54 Dose: 300 mls/hr Albumin Human (Flexbumin 25% Inj) 100 mls @ 60 mls/hr IV.SIG WITH DIALYSIS PRN PRN Reason: hypotension / volume replace Last Infusion: 04/15/18 09:14 Dose: Infused Sodium Chloride (Ns Inj) 1,000 mls @ 0 mls/hr OTHER .Q0M PRN PRN Reason: for prime and rinse back Sodium Chloride (Ns Inj) 1,000 mls @ 200 mls/hr OTHER .Q5H PRN PRN Reason: for dialyzer flush PRN Sodium Chloride (Ns Inj) 1,000 mls @ 0 mls/hr IV.CONT .Q0M PRN PRN Reason: hypotension / volume replace Piperacillin/Tazobactam/Dextrose (Zosyn 2.25 Gm Premix) 2.25 gm in 50 mls @ 100 mls/hr IV.SIG Q8H [facility] Last Infusion: 04/26/18 02:44 Dose: Infused Propofol (Diprivan 1000 Mg/100 Ml Inj) 1,000 mg in 100 mls @ 3.708 mls/hr IV.CONT TITRATE PRN; Protocol PRN Reason: Per Protocol Last Titration: 04/21/18 09:30 Dose: 0 mcg/kg/min, 0 mls/hr Insulin Human Regular (Novolin R Correctional Sugar Inj) 0 units SQ Q4HR [facility]; Protocol Last Admin: 04/26/18 08:39 Dose: Not Given Isosorbide Mononitrate (Imdur) 120 mg PO DAILY@0700 [facility] Last Admin: 04/26/18 06:09 Dose: 120 mg Lactulose (Lactulose Liq) 30 ml PO DAILY PRN PRN Reason: SEVERE CONSITIPATION Last Admin: 04/15/18 01:42 Dose: 30 ml Mannitol (Mannitol Inj) 12.5 gm IV.PUSH UNSCH PRN PRN Reason: hypotension / volume replace Nitroglycerin (Nitrostat Sl) 0.4 mg SL Q5M PRN PRN Reason: CHEST PAIN Ondansetron HCl (Zofran Inj) 4 mg IV.PUSH Q6H PRN PRN Reason: NAUSEA OR VOMITING Pantoprazole Sodium (Protonix Inj) 40 mg IV.PUSH DAILY [facility] Last Admin: 04/25/18 08:16 Dose: 40 mg Prednisone (Deltasone) 5 mg PO DAILY [facility] Last Admin: 04/26/18 08:55 Dose: 5 mg Senna/Docusate Sodium (Maribel-Colace) 1 tab PO BID [facility] Last Admin: 04/26/18 08:55 Dose: 1 tab Sennosides (Senokot) 17.2 mg PO Q12H PRN PRN Reason: Moderate Constipation Sevelamer Carbonate (Renvela) 2,400 mg PO TIDAC [facility] Sodium Chloride (Ns Flush) 2 ml IV.FLUSH BID [facility] Last Admin: 04/26/18 08:56 Dose: Not Given Sodium Chloride (Ns Flush) 2 ml IV.FLUSH PRN PRN PRN Reason: FLUSH AFTER USING IV ACCESS Sodium Chloride (Ns Flush) 2 ml IV.FLUSH UNSCH PRN PRN Reason: FLUSH AFTER USING IV ACCESS Sodium Chloride (Ns Flush) 2 ml IV.FLUSH BID [facility] Last Admin: 04/26/18 08:55 Dose: 2 ml Sodium Chloride (Ns Flush) 5 ml IV.FLUSH PRN PRN PRN Reason: flush each lumen during HD Vitamin B Complex/Vit C/Folic Acid (Nephrocaps) 1 tab PO DAILY [facility] Last Admin: 04/26/18 08:51 Dose: 1 tab Allergies Allergy/AdvReac Type Severity Reaction Status Date / Time No Known Allergies Allergy Verified 04/11/18 10:33 Home Medications Medication Instructions Recorded Confirmed Type furosemide 80 mg PO DAILY 11/10/17 04/11/18 History insulin glargine [Lantus U-100 25 unit SUB-Q HS 11/10/17 04/11/18 History Insulin] prednisone 5 mg PO DAILY 11/10/17 04/11/18 History sevelamer carbonate [Renvela] 1,600 mg PO TIDAC 11/10/17 04/11/18 History albuterol sulfate [Ventolin HFA] 2 puff INHALATION Q4-6H PRN 04/11/18 04/11/18 History Physical Exam Vital signs: Vital Signs 04/25/18 09:00 04/25/18 10:00 04/25/18 11:00 Temperature Pulse Rate 97 H 109 H 101 H Respiratory Rate 16 27 H 16 Blood Pressure 144/65 H Pulse Oximetry 93 L 92 L 91 L 04/25/18 14:32 04/25/18 14:34 04/25/18 14:35 Temperature Pulse Rate 104 H 103 H 101 H Respiratory Rate 31 H 13 Blood Pressure 161/89 H Pulse Oximetry 99 04/25/18 14:45 04/25/18 15:00 04/25/18 15:15 Temperature Pulse Rate 106 H 101 H 100 H Respiratory Rate 39 H 20 20 Blood Pressure 168/92 H 172/88 H 179/85 H Pulse Oximetry 04/25/18 15:30 04/25/18 15:45 04/25/18 16:00 Temperature 98.4 F Pulse Rate 100 H 101 H 97 H Respiratory Rate 21 21 13 Blood Pressure 184/86 H 175/80 H 168/77 H Pulse Oximetry 97 93 L 94 L 04/25/18 16:15 04/25/18 16:30 04/25/18 16:45 Temperature Pulse Rate 97 H 98 H 99 H Respiratory Rate 12 11 L 12 Blood Pressure 169/74 H 169/77 H 166/74 H Pulse Oximetry 94 L 94 L 94 L 04/25/18 17:00 04/25/18 17:15 04/25/18 17:30 Temperature Pulse Rate 99 H 97 H 97 H Respiratory Rate 12 12 11 L Blood Pressure 166/77 H 164/73 H 155/70 H Pulse Oximetry 94 L 95 94 L 04/25/18 18:00 04/25/18 19:00 04/25/18 19:56 Temperature Pulse Rate 109 H 105 H Respiratory Rate 20 25 H 18 Blood Pressure 157/75 H 163/72 H Pulse Oximetry 90 L 95 04/25/18 20:00 04/25/18 20:33 04/25/18 21:00 Temperature 98.1 F Pulse Rate 99 H 104 H 101 H Respiratory Rate 10 L 18 13 Blood Pressure 145/64 H 149/65 H Pulse Oximetry 95 94 L 95 04/25/18 22:00 04/25/18 22:40 04/25/18 22:46 Temperature Pulse Rate 98 H Respiratory Rate 11 L 18 Blood Pressure 147/65 H Pulse Oximetry 95 97 04/25/18 23:00 04/26/18 00:00 04/26/18 00:16 Temperature 98.3 F Pulse Rate 95 H 93 H Respiratory Rate 10 L 23 Blood Pressure 132/59 L 128/59 L Pulse Oximetry 97 97 97 04/26/18 01:00 04/26/18 01:01 04/26/18 02:00 Temperature Pulse Rate 92 H 89 Respiratory Rate 12 16 11 L Blood Pressure 125/61 124/57 L Pulse Oximetry 98 97 04/26/18 03:00 04/26/18 03:57 04/26/18 04:00 Temperature 98.1 F Pulse Rate 90 101 H 102 H Respiratory Rate 15 15 32 H Blood Pressure 124/58 L 136/70 Pulse Oximetry 97 93 L 99 04/26/18 04:43 04/26/18 06:00 Temperature Pulse Rate 97 H Respiratory Rate 16 Blood Pressure Pulse Oximetry Intake & Output 04/25/18 04/26/18 04/26/18 18:59 06:59 18:59 Intake Total 1120 / 1120 520 / 520 Output Total 3000 / 3000 Balance -1880 / -1880 520 / 520 Weight 262 lb 5.601 oz Intake: IV 570 / 570 400 / 400 Zyvox 600 mg Premix 300 ML @ 300 / 300 300 mls/hr IV.SIG Q12H [facility] Rx#: [id number] Zosyn 2.25 GM Premix 2.25 gm In 50 / 50 100 / 100 50 ml @ 100 mls/hr IV.SIG Q8H [facility] Rx#:[id number] Vancomycin Inj 2,000 MG In NS 520 / 520 Inj 500 ML @ 250 mls/hr IV.SIG WITH DIALYSIS [facility] Rx#:[id number] Oral 500 / 500 120 / 120 Anesthesia Amount 50 / 50 Output: Hemodialysis Amount 3000 / 3000 Other: Date of Last Bowel Movement 04/25/18 04/25/18 # Bowel Movements 2 Narrative: GENERAL: Well-developed well-nourished obese. In no acute distress. NECK: No carotid bruits. No JVD. CARDIOVASCULAR: Regular rate and rhythm. No murmur appreciated. RESPIRATORY: No accessory muscle use. Rales present bilaterally. MUSCULOSKELETAL: No clubbing or cyanosis. No edema. Right groin with no ecchymosis or tenderness with intact femoral pulse. NEUROLOGICAL: Awake and alert. Normal speech. Results 04/26/18 04:19 04/26/18 04:19 Coagulation 04/25/18 Range/Units 08:14 PT 12.2 H (9.8-11.6) sec Lipids 04/26/18 Range/Units 04:19 Triglycerides 115 (42-150) mg/dL Cholesterol 117 L (120-200) mg/dL HDL Cholesterol 48.5 (40.0-60.0) mg/dL Cholesterol/HDL Ratio 2.41 Ratio CBC 04/25/18 04/26/18 Range/Units 08:14 04:19 WBC 15.3 H 11.6 H (4.0-11.0) th/mm3 RBC 3.35 L 3.40 L (4.50-5.90) mil/mm3 Hgb 9.2 L 9.1 L (13.0-17.0) gm/dL Hct 29.0 L 29.0 L (39.0-51.0) % Plt Count 200 193 (150-450) th/mm3 Neut # (Auto) 12.9 H 9.5 H (1.8-7.7) th/mm3 Lymph # (Auto) 0.8 L 0.8 L (1.0-4.8) th/mm3 Wood # (Auto) 1.3 H 1.1 H (0.0-0.9) th/mm3 Eos # (Auto) 0.2 0.1 (0.0-0.4) th/mm3 Baso # (Auto) 0.1 0.0 (0.0-0.2) th/mm3 Comprehensive Metabolic Panel 04/25/18 04/26/18 Range/Units 08:14 04:19 Sodium 134 L 136 (136-145) meq/L Potassium 4.2 4.1 (3.5-5.1) meq/L Chloride 92 L 96 L (98-107) meq/L Carbon Dioxide 24.5 27.3 (21.0-32.0) meq/L BUN 77 H 51 H (7-18) mg/dL Creatinine 9.69 H 7.22 H (0.60-1.30) mg/dL Calcium 9.1 8.9 (8.5-10.1) mg/dL Intake and Output 04/25/18 04/26/18 04/26/18 22:59 06:59 14:59 Intake Total 1370 / 1370 170 / 170 Output Total 3000 / 3000 Balance -1630 / -1630 170 / 170 Intake: IV 870 / 870 50 / 50 Zyvox 600 mg Premix 300 ML @ 300 / 300 300 mls/hr IV.SIG Q12H [facility] Rx#: [id number] Zosyn 2.25 GM Premix 2.25 gm In 50 / 50 50 / 50 50 ml @ 100 mls/hr IV.SIG Q8H [facility] Rx#:[id number] Vancomycin Inj 2,000 MG In NS 520 / 520 Inj 500 ML @ 250 mls/hr IV.SIG WITH DIALYSIS [facility] Rx#:[id number] Oral 500 / 500 120 / 120 Output: Hemodialysis Amount 3000 / 3000 Other: Date of Last Bowel Movement 04/25/18 04/25/18 # Bowel Movements 2 Weight 262 lb 5.601 oz - Imaging and Cardiology Imaging: Impressions Venous Doppler Study 04/24/18 00:00 CONCLUSION: 1. The study is negative for upper extremity deep venous thrombosis. Chest X-Ray 04/25/18 04:00 CONCLUSION: No significant interval change Assessment and Plan - Plan 57-year-old male with CAD s/p 6v CABG 2003 and PCI to LCx 2015 w05/18 grafts patent on [facility], ESRD on home HD 4x per week, HTN, HLD, DM. The patient was at [place] getting colonoscopy done 04/11/18 and had reported asystolic cardiac arrest. Asystolic arrest during anesthesia for colonoscopy: No strips available, however no noted VT/VF. Minimal troponin elevation in the setting of ESRD. Previously reported intermittent chest pain symptoms. When the patient was tachycardic he did have ST depression. No significant arrhythmias noted on telemetry since admission. s/p EP consult. Acute respiratory failure, requiring endotracheal intubation and mechanical ventilation. Suspected aspiration pneumonia. Chest pain with CAD: [facility] 04/25/18 with PCI to SVG. Continue aspirin, Plavix, statin. CV stable. We will sign off at this time. Call with questions. Discussed Condition With: Patient with and RN at bedside, Dr. Arredondo
--- NOTE | 2018-04-26 09:50 | P.PNNP ---
Subjective Interval history: He underwent cardiac cath yesterday, findings were reviewed with the patient. He is going for I & D of right arm abscess. Discussed importance of phosphorus management. I have changed the binder to Renvela. Avoid calcium containing binders. Physical Exam Vital signs: Vital Signs 04/25/18 10:00 04/25/18 11:00 04/25/18 14:32 Temperature Pulse Rate 109 H 101 H 104 H Respiratory Rate 27 H 16 31 H Blood Pressure Pulse Oximetry 92 L 91 L 04/25/18 14:34 04/25/18 14:35 04/25/18 14:45 Temperature Pulse Rate 103 H 101 H 106 H Respiratory Rate 13 39 H Blood Pressure 161/89 H 168/92 H Pulse Oximetry 99 04/25/18 15:00 04/25/18 15:15 04/25/18 15:30 Temperature Pulse Rate 101 H 100 H 100 H Respiratory Rate 20 20 21 Blood Pressure 172/88 H 179/85 H 184/86 H Pulse Oximetry 97 04/25/18 15:45 04/25/18 16:00 04/25/18 16:15 Temperature 98.4 F Pulse Rate 101 H 97 H 97 H Respiratory Rate 21 13 12 Blood Pressure 175/80 H 168/77 H 169/74 H Pulse Oximetry 93 L 94 L 94 L 04/25/18 16:30 04/25/18 16:45 04/25/18 17:00 Temperature Pulse Rate 98 H 99 H 99 H Respiratory Rate 11 L 12 12 Blood Pressure 169/77 H 166/74 H 166/77 H Pulse Oximetry 94 L 94 L 94 L 04/25/18 17:15 04/25/18 17:30 04/25/18 18:00 Temperature Pulse Rate 97 H 97 H 109 H Respiratory Rate 12 11 L 20 Blood Pressure 164/73 H 155/70 H 157/75 H Pulse Oximetry 95 94 L 90 L 04/25/18 19:00 04/25/18 19:56 04/25/18 20:00 Temperature 98.1 F Pulse Rate 105 H 99 H Respiratory Rate 25 H 18 10 L Blood Pressure 163/72 H 145/64 H Pulse Oximetry 95 95 04/25/18 20:33 04/25/18 21:00 04/25/18 22:00 Temperature Pulse Rate 104 H 101 H 98 H Respiratory Rate 18 13 11 L Blood Pressure 149/65 H 147/65 H Pulse Oximetry 94 L 95 95 04/25/18 22:40 04/25/18 22:46 04/25/18 23:00 Temperature Pulse Rate 95 H Respiratory Rate 18 10 L Blood Pressure 132/59 L Pulse Oximetry 97 97 04/26/18 00:00 04/26/18 00:16 04/26/18 01:00 Temperature 98.3 F Pulse Rate 93 H 92 H Respiratory Rate 23 12 Blood Pressure 128/59 L 125/61 Pulse Oximetry 97 97 98 04/26/18 01:01 04/26/18 02:00 04/26/18 03:00 Temperature Pulse Rate 89 90 Respiratory Rate 16 11 L 15 Blood Pressure 124/57 L 124/58 L Pulse Oximetry 97 97 04/26/18 03:57 04/26/18 04:00 04/26/18 04:43 Temperature 98.1 F Pulse Rate 101 H 102 H Respiratory Rate 15 32 H 16 Blood Pressure 136/70 Pulse Oximetry 93 L 99 04/26/18 06:00 Temperature Pulse Rate 97 H Respiratory Rate Blood Pressure Pulse Oximetry Intake & Output 04/25/18 04/26/18 04/26/18 18:59 06:59 18:59 Intake Total 1120 / 1120 520 / 520 Output Total 3000 / 3000 Balance -1880 / -1880 520 / 520 Weight 119 kg Intake: IV 570 / 570 400 / 400 Zyvox 600 mg Premix 300 ML @ 300 / 300 300 mls/hr IV.SIG Q12H [facility] Rx#: [id number] Zosyn 2.25 GM Premix 2.25 gm In 50 / 50 100 / 100 50 ml @ 100 mls/hr IV.SIG Q8H [facility] Rx#:[id number] Vancomycin Inj 2,000 MG In NS 520 / 520 Inj 500 ML @ 250 mls/hr IV.SIG WITH DIALYSIS [facility] Rx#:[id number] Oral 500 / 500 120 / 120 Anesthesia Amount 50 / 50 Output: Hemodialysis Amount 3000 / 3000 Other: Date of Last Bowel Movement 04/25/18 04/25/18 # Bowel Movements 2 Narrative: GENERAL: Well-developed well-nourished obese. In no acute distress. NECK: No carotid bruits. No JVD. CARDIOVASCULAR: Regular rate and rhythm. No murmur appreciated. RESPIRATORY: No accessory muscle use. Rales present bilaterally. MUSCULOSKELETAL: No clubbing or cyanosis. No edema. Right arm: fluctuant swelling with surrounding erythema, suggestive of abscess. NEUROLOGICAL: Awake and alert. Normal speech. Assessment and Plan - Assessment (1) End stage renal disease Code(s): N18.6 - End stage renal disease Status: Acute Plan: Pateint with ESRD, on Home HD. Patient getting dialysis MWF while hospitalized. Avoid Gadolinium. Monitor fluid and electrolytes. (2) Hypertension Code(s): I10 - Essential (primary) hypertension Status: Acute Qualifiers: Hypertension type: essential hypertension Qualified Code(s): I10 - Essential (primary) hypertension Plan: Continue to monitor. Patient on hydralazine. 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 (4) Cardiopulmonary arrest with successful resuscitation Code(s): I46.9 - Cardiac arrest, cause unspecified Status: Acute Plan: Findings of cardiac cath noted. Reviewed cardiology note. (5) Metabolic bone disease Code(s): E88.9 - Metabolic disorder, unspecified; M90.80 - Osteopathy in diseases classified elsewhere, unspecified site Status: Acute Plan: Sensipar has been held due to hypocalcemia. PTH level 1954, patient on Calcitriol 0.5 mcg po daily. Monitor phosphorus intermittently, patient is on PhosLo. Phos 9.2. Changed the binder to Renvela.
[2018-04-26] MEDS: Pantoprazole Inj 40 MG Vial IV.PUSH SCH (10:25)
[2018-04-26] MEDS ORDERED: Heparin - SQ 10,000 UNITS/ML Vial ONE (12:42)
[2018-04-26] MEDS ORDERED: Bupivacaine 0.5% Inj 50 ML MDV Vial ONE (12:43)
--- NOTE | 2018-04-26 13:08 | P.PNID ---
Subjective Remarks: Mr. Salguero is a 57-year-old male with multiple medical problems including end-stage renal disease was on hemodialysis and followed by Dr. Vogel. Patient reports that he is status post renal transplant in 2004 but ended up needing dialysis. Patient reports that he has a left forearm AV fistula which is functional and is being used for hemodialysis. Patient's past medical history is also significant for morbid obesity, coronary artery disease with previous coronary artery bypass grafting in 2003. Per review of records it appears that patient was having a routine colonoscopy and while being sedated he had an asystolic episode. He received 2 rounds of epinephrine and chest compressions were performed. He was initially intubated on arrival to the ER and then subsequently was extubated. On April 15 patient again started having respiratory distress and was intubated again. Patient has been undergoing hemodialysis during this hospitalization. Patient was extubated on April 21, 2017 and has been doing well. Patient's noticed that on the right upper extremity on possibly a IV or blood draw site there was some redness noted and she brought her to the attention of the critical care physician. Due to elevated white count and concern for infection infectious disease was consulted and Dr. Suero personally discussed the case with me. Blood cultures were drawn and patient was empirically started on antibiotics appropriately. At the time of my evaluation patient is in the intensive medical care unit currently awake alert oriented x3. He denies any complaints other than soreness at the site of the right upper extremity AC fossa area with possible phlebitis. Overnight events reviewed. No fever No rash No diarrhea Underwent cardiac cath and tolerated procedure well. Plan for removal/excision of the involved vein. Antibiotics: Zosyn IV Vancomycin IV Lines: Line sites with no evidence of infection. Past Medical History: Reviewed. Allergies/Adverse Reactions: Allergies No Known Allergies Allergy (Verified 04/11/18 10:33) Objective Vital Signs 04/25/18 14:32 04/25/18 14:34 04/25/18 14:35 Temperature Pulse Rate 104 H 103 H 101 H Respiratory Rate 31 H 13 Blood Pressure 161/89 H Pulse Oximetry 99 04/25/18 14:45 04/25/18 15:00 04/25/18 15:15 Temperature Pulse Rate 106 H 101 H 100 H Respiratory Rate 39 H 20 20 Blood Pressure 168/92 H 172/88 H 179/85 H Pulse Oximetry 04/25/18 15:30 04/25/18 15:45 04/25/18 16:00 Temperature 98.4 F Pulse Rate 100 H 101 H 97 H Respiratory Rate 21 21 13 Blood Pressure 184/86 H 175/80 H 168/77 H Pulse Oximetry 97 93 L 94 L 04/25/18 16:15 04/25/18 16:30 04/25/18 16:45 Temperature Pulse Rate 97 H 98 H 99 H Respiratory Rate 12 11 L 12 Blood Pressure 169/74 H 169/77 H 166/74 H Pulse Oximetry 94 L 94 L 94 L 04/25/18 17:00 04/25/18 17:15 04/25/18 17:30 Temperature Pulse Rate 99 H 97 H 97 H Respiratory Rate 12 12 11 L Blood Pressure 166/77 H 164/73 H 155/70 H Pulse Oximetry 94 L 95 94 L 04/25/18 18:00 04/25/18 19:00 04/25/18 19:56 Temperature Pulse Rate 109 H 105 H Respiratory Rate 20 25 H 18 Blood Pressure 157/75 H 163/72 H Pulse Oximetry 90 L 95 04/25/18 20:00 04/25/18 20:33 04/25/18 21:00 Temperature 98.1 F Pulse Rate 99 H 104 H 101 H Respiratory Rate 10 L 18 13 Blood Pressure 145/64 H 149/65 H Pulse Oximetry 95 94 L 95 04/25/18 22:00 04/25/18 22:40 04/25/18 22:46 Temperature Pulse Rate 98 H Respiratory Rate 11 L 18 Blood Pressure 147/65 H Pulse Oximetry 95 97 04/25/18 23:00 04/26/18 00:00 04/26/18 00:16 Temperature 98.3 F Pulse Rate 95 H 93 H Respiratory Rate 10 L 23 Blood Pressure 132/59 L 128/59 L Pulse Oximetry 97 97 97 04/26/18 01:00 04/26/18 01:01 04/26/18 02:00 Temperature Pulse Rate 92 H 89 Respiratory Rate 12 16 11 L Blood Pressure 125/61 124/57 L Pulse Oximetry 98 97 04/26/18 03:00 04/26/18 03:57 04/26/18 04:00 Temperature 98.1 F Pulse Rate 90 101 H 102 H Respiratory Rate 15 15 32 H Blood Pressure 124/58 L 136/70 Pulse Oximetry 97 93 L 99 02/12/19 04:43 04/26/18 05:00 04/26/18 06:00 Temperature Pulse Rate 102 H 98 H Respiratory Rate 16 19 12 Blood Pressure 141/74 H 144/66 H Pulse Oximetry 91 L 95 04/26/18 07:00 04/26/18 08:00 04/26/18 09:00 Temperature 98.1 F Pulse Rate 93 H 97 H 99 H Respiratory Rate 18 15 24 Blood Pressure 153/66 H 154/72 H 162/75 H Pulse Oximetry 97 93 L 94 L 04/26/18 09:56 04/26/18 10:00 04/26/18 11:00 Temperature Pulse Rate 95 H 96 H 109 H Respiratory Rate 19 21 26 H Blood Pressure 151/68 H Pulse Oximetry 96 100 96 04/26/18 11:13 04/26/18 12:00 Temperature Pulse Rate 104 H 98 H Respiratory Rate 35 H 29 H Blood Pressure 162/70 H 162/67 H Pulse Oximetry 97 95 Intake & Output 04/25/18 04/26/18 04/26/18 18:59 06:59 18:59 Intake Total 1120 / 1120 520 / 520 Output Total 3000 / 3000 Balance -1880 / -1880 520 / 520 Weight 119 kg Intake: IV 570 / 570 400 / 400 Zyvox 600 mg Premix 300 ML @ 300 / 300 300 mls/hr IV.SIG Q12H DOMENICO Rx#: [id number] Zosyn 2.25 GM Premix 2.25 gm In 50 / 50 100 / 100 50 ml @ 100 mls/hr IV.SIG Q8H DOMENICO Rx#:[id number] Vancomycin Inj 2,000 MG In NS 520 / 520 Inj 500 ML @ 250 mls/hr IV.SIG WITH DIALYSIS DOMENICO Rx#:[id number] Oral 500 / 500 120 / 120 Anesthesia Amount 50 / 50 Output: Hemodialysis Amount 3000 / 3000 Other: Date of Last Bowel Movement 04/25/18 04/25/18 04/25/18 # Bowel Movements 2 04/24/18 13:51 Blood - Peripheral Aerobic Blood Culture - Preliminary No growth in 2 days 04/24/18 13:51 Blood - Peripheral Anaerobic Blood Culture - Preliminary No growth in 2 days 04/24/18 13:56 Blood - Peripheral Aerobic Blood Culture - Preliminary No growth in 2 days 04/24/18 13:56 Blood - Peripheral Anaerobic Blood Culture - Preliminary No growth in 2 days Lab - Hematology Results 04/25/18 04/26/18 08:14 04:19 WBC 15.3 H 11.6 H RBC 3.35 L 3.40 L Hgb 9.2 L 9.1 L Hct 29.0 L 29.0 L MCV 86.4 85.1 MCH 27.5 26.7 L MCHC 31.9 L 31.3 L RDW 17.6 H 18.0 H Plt Count 200 193 MPV 8.7 8.5 Neut % (Auto) 84.7 H 81.8 H Lymph % (Auto) 5.1 L 7.3 L [place] % (Auto) 8.5 H 9.3 H Eos % (Auto) 1.4 1.3 Baso % (Auto) 0.3 0.3 Neut # (Auto) 12.9 H 9.5 H Lymph # (Auto) 0.8 L 0.8 L [place] # (Auto) 1.3 H 1.1 H Eos # (Auto) 0.2 0.1 Baso # (Auto) 0.1 0.0 WBC Differential . . Differential Comment Auto diff final Auto diff final Lab - Chemistry Results 04/24/18 04/24/18 04/24/18 16:22 19:27 23:55 Sodium Potassium Chloride Carbon Dioxide Anion Gap BUN Creatinine Estimated GFR POC Glucose 150 H 152 H 155 H Random Glucose Calcium Phosphorus Magnesium Total Creatine Kinase Triglycerides Cholesterol LDL Cholesterol, Calc HDL Cholesterol Cholesterol/HDL Ratio 04/25/18 04/25/18 04/25/18 04:11 07:54 08:14 Sodium 134 L Potassium 4.2 Chloride 92 L Carbon Dioxide 24.5 Anion Gap 18 H BUN 77 H Creatinine 9.69 H Estimated GFR 6 L POC Glucose 141 H 141 H Random Glucose 128 H Calcium 9.1 Phosphorus 9.2 H Magnesium 3.0 H Total Creatine Kinase Triglycerides Cholesterol LDL Cholesterol, Calc HDL Cholesterol Cholesterol/HDL Ratio 04/25/18 04/25/18 04/25/18 16:33 20:26 22:42 Sodium Potassium Chloride Carbon Dioxide Anion Gap BUN Creatinine Estimated GFR POC Glucose 123 H 116 H 131 H Random Glucose Calcium Phosphorus Magnesium Total Creatine Kinase Triglycerides Cholesterol LDL Cholesterol, Calc HDL Cholesterol Cholesterol/HDL Ratio 04/26/18 04/26/18 04/26/18 03:50 04:19 07:50 Sodium 136 Potassium 4.1 Chloride 96 L Carbon Dioxide 27.3 Anion Gap 13 BUN 51 H Creatinine 7.22 H Estimated GFR 8 L POC Glucose 89 98 Random Glucose 82 Calcium 8.9 Phosphorus Magnesium Total Creatine Kinase 76 Triglycerides 115 Cholesterol 117 L LDL Cholesterol, Calc 46 HDL Cholesterol 48.5 Cholesterol/HDL Ratio 2.41 04/26/18 11:29 Sodium Potassium Chloride Carbon Dioxide Anion Gap BUN Creatinine Estimated GFR POC Glucose 145 H Random Glucose Calcium Phosphorus Magnesium Total Creatine Kinase Triglycerides Cholesterol LDL Cholesterol, Calc HDL Cholesterol Cholesterol/HDL Ratio Imaging: ITS Impressions Chest CTA 04/12/18 00:00 CONCLUSION: 1. No CT evidence for pulmonary artery embolism as questioned. 2. Cardiomegaly with trace bilateral pleural effusions and mild airspace consolidation at the lung bases which may reflect compressive atelectasis. Differential considerations include aspiration in the appropriate clinical setting. 3. Trace perihepatic ascites fluid. Venous Doppler Study 04/24/18 00:00 CONCLUSION: 1. The study is negative for upper extremity deep venous thrombosis. Chest X-Ray 04/25/18 04:00 CONCLUSION: No significant interval change Physical Exam: GENERAL: Well-nourished well-developed, not in acute distress SKIN: Cool and dry, no generalized rash HEAD: Atraumatic. Normocephalic. No temporal or scalp tenderness. EYES: Pupils equal round and reactive. Scleral icterus. No injection or drainage. No petechia ENT: Nothing abnormal detected NECK: Trachea midline. Supple, nontender, no meningeal signs. CARDIOVASCULAR: HS audible. RESPIRATORY: Clear to auscultation bilaterally. GASTROINTESTINAL: Abdomen soft nontender. MUSCULOSKELETAL: Extremities without clubbing, cyanosis. Left upper extremity forearm AV fistula site with no evidence of infection. Bruit audible and thrill palpable. Right upper extremity AC fossa area slightly above it there was an area of redness with induration and a cord was palpable. NEUROLOGICAL: Alert oriented 3. Nonfocal. Psych cooperative IV line sites ok. Assessment and Plan - Plan Possible Septic thrombophlebitis ESRD on HD Left AV fistula functional h/o asystole during anaesthesia for Colonoscopy. Recs Continue Zosyn Continue Zyvox IV will cover for VRE as well. Vein is excised please send cultures so that the remaining vein can be treated accordingly. Discussed with Dr. Medina Follow cultures Follow clinical course. ryan Redd
[2018-04-26] MEDS ORDERED: Phenylephrine/NS 1000 MCG/10ML Syringe IV.PUSH ONE (14:01)
[2018-04-26] MEDS ORDERED: Ketamine Inj 500 MG/10 ML Vial ONE (14:56)
--- NOTE | 2018-04-26 16:00 | MP ---
cc: Klarissa Meade MD DATE OF OPERATION: 04/26/2018 PREOPERATIVE DIAGNOSIS: Coronary artery disease, respiratory failure, congestive heart failure, hypertension, diabetes mellitus, septic thrombophlebitis of the antecubital vein and basilic vein on the right. POSTOPERATIVE DIAGNOSIS: Coronary artery disease, respiratory failure, congestive heart failure, hypertension, diabetes mellitus, septic thrombophlebitis of the antecubital vein and basilic vein on the right. OPERATIVE PROCEDURE: Excision of the antecubital veins and a portion of the basilic vein on the right with tissue cultures, irrigation and packing. SURGEON: Klarissa Meade MD ANESTHESIA: General. ESTIMATED BLOOD LOSS: 30 mL DESCRIPTION OF PROCEDURE: The patient was prepped and draped in the usual fashion. The area was infiltrated with 0.5% Xylocaine. An elliptical incision was made around the area of the inflammation in the right antecubital fossa and a segment of tissue measuring about 3 x 2 inches x 1 inch deep was removed with a 15 blade and cautery. Antecubital vein segment was carried out toward basilic vein where the vein bled. The vein was ligated proximally and distally and the middle segment of course was removed. The area irrigated with copious amounts of saline. Tissue was sent for cultures and for pathology. Meticulous hemostasis assured. Then, the area was irrigated with about 2 liters of saline and then incision approximated with some 3-0 Prolene and iodoform packing placed underneath. The patient tolerated the procedure well. Klarissa Meade MD SJ/ct , 03:40 PM , 03:46 PM
--- NOTE | 2018-04-26 17:45 | P.PNIM ---
Subjective Interval history: Pt seen after surgery. Pt doing well. Tolerating PO diet. Physical Exam Vital signs: Last Vital Signs Temp 98.0 F 04/26/18 15:41 Pulse 99 H 04/26/18 16:32 Resp 14 04/26/18 16:32 BP 128/62 04/26/18 15:41 Pulse Ox 95 04/26/18 15:41 Narrative: GENERAL: This is a well-nourished, well-developed patient, in no apparent distress. CARDIOVASCULAR: tachycardia RESPIRATORY: Clear to auscultation. Breath sounds equal bilaterally. No wheezes , rales, or rhonchi. GASTROINTESTINAL: Abdomen soft, non-tender, nondistended. Normal active bowel sounds MUSCULOSKELETAL: Extremities without clubbing, cyanosis, or edema. NEURO: Alert & Oriented x4 to person, place, time, situation. Moves all ext x4 Results Labs CBC & Chem 7: 04/30/18 09:42 04/30/18 09:42 Assessment and Plan Plan 1) Cardiopulmonary Arrest with successful recussitation - patient was having a routine colonoscopy and while being sedated he had an asystolic episode. - He received 2 rounds of epinephrine and chest compressions were performed. - He was initially intubated on arrival to the ER and then subsequently was extubated. - On April 15 patient again started having respiratory distress and was intubated again. - Patient was extubated on April 21, 2017 and has been doing well. - [facility] (04/25/18) with Dr. Ramos Arredondo - Successful percutaneous coronary intervention with drug-eluting stent to the mid body of the saphenous vein graft to diagonal branch. - ASA, plavix, imdur, lipitor 2) Septic Thrombophlebitis - comgmt with Vascular Surgery and Infectious Disease - Pt taken to the OR by Dr. Meade. & underwent excision of the antecubital veins and a portion of the basilic vein on the right with tissue cultures, irrigation and packing. - Zosyn (04/14 - present) - Vancomycin stopped 04/24 - Zyvox (04/25 - present) 2) ESRD on HD - HD ,, Wednesday per Dr. Vasquez 3) DM2 - SSI Progress Note: Quality VTE Deep Vein Thrombosis/Pulmonary Embolism Present on Admission: No
--- NOTE | 2018-04-26 18:43 | P.PN ---
Subjective Interval history: Is alert and in no respiratory distress. On O2 nasal cannula 3l. Went for antecubital vein resection for a infected vein segment. Has some cough and wheezing. Physical Exam Vital signs: Vital Signs 04/25/18 19:00 04/25/18 19:56 04/25/18 20:00 Temperature 98.1 F Pulse Rate 105 H 99 H Respiratory Rate 25 H 18 10 L Blood Pressure 163/72 H 145/64 H Pulse Oximetry 95 95 04/25/18 20:33 04/25/18 21:00 04/25/18 22:00 Temperature Pulse Rate 104 H 101 H 98 H Respiratory Rate 18 13 11 L Blood Pressure 149/65 H 147/65 H Pulse Oximetry 94 L 95 95 04/25/18 22:40 04/25/18 22:46 04/25/18 23:00 Temperature Pulse Rate 95 H Respiratory Rate 18 10 L Blood Pressure 132/59 L Pulse Oximetry 97 97 04/26/18 00:00 04/26/18 00:16 04/26/18 01:00 Temperature 98.3 F Pulse Rate 93 H 92 H Respiratory Rate 23 12 Blood Pressure 128/59 L 125/61 Pulse Oximetry 97 97 98 04/26/18 01:01 04/26/18 02:00 04/26/18 03:00 Temperature Pulse Rate 89 90 Respiratory Rate 16 11 L 15 Blood Pressure 124/57 L 124/58 L Pulse Oximetry 97 97 04/26/18 03:57 04/26/18 04:00 04/26/18 04:43 Temperature 98.1 F Pulse Rate 101 H 102 H Respiratory Rate 15 32 H 16 Blood Pressure 136/70 Pulse Oximetry 93 L 99 04/26/18 05:00 04/26/18 06:00 04/26/18 07:00 Temperature Pulse Rate 102 H 98 H 93 H Respiratory Rate 19 12 18 Blood Pressure 141/74 H 144/66 H 153/66 H Pulse Oximetry 91 L 95 97 04/26/18 08:00 04/26/18 09:00 04/26/18 09:56 Temperature 98.1 F Pulse Rate 97 H 99 H 95 H Respiratory Rate 15 24 19 Blood Pressure 154/72 H 162/75 H Pulse Oximetry 93 L 94 L 96 04/26/18 10:00 04/26/18 11:00 04/26/18 11:13 Temperature Pulse Rate 96 H 109 H 104 H Respiratory Rate 21 26 H 35 H Blood Pressure 151/68 H 162/70 H Pulse Oximetry 100 96 97 04/26/18 12:00 04/26/18 13:08 04/26/18 14:00 Temperature 98.1 F Pulse Rate 98 H 16 L 98 H Respiratory Rate 29 H 17 Blood Pressure 162/67 H 149/65 H Pulse Oximetry 95 99 04/26/18 15:13 04/26/18 15:15 04/26/18 15:30 Temperature 98.0 F Pulse Rate 102 H 101 H 98 H Respiratory Rate 15 13 14 Blood Pressure 130/62 128/61 130/59 L Pulse Oximetry 94 L 94 L 94 L 04/26/18 15:41 04/26/18 16:00 04/26/18 16:32 Temperature 98.0 F Pulse Rate 95 H 95 H 99 H Respiratory Rate 14 14 Blood Pressure 128/62 Pulse Oximetry 95 04/26/18 18:00 Temperature Pulse Rate 99 H Respiratory Rate Blood Pressure Pulse Oximetry Intake & Output 04/25/18 04/26/18 04/26/18 18:59 06:59 18:59 Intake Total 1120 / 1120 520 / 520 790 / 790 Output Total 3000 / 3000 Balance -1880 / -1880 520 / 520 780 / 780 Weight 119 kg Intake: IV 570 / 570 400 / 400 400 / 400 Zyvox 600 mg Premix 300 ML @ 300 / 300 300 / 300 300 mls/hr IV.SIG Q12H DOMNEICO Rx#: [id number] Zosyn 2.25 GM Premix 2.25 gm In 50 / 50 100 / 100 100 / 100 50 ml @ 100 mls/hr IV.SIG Q8H DOMENICO Rx#:[id number] Vancomycin Inj 2,000 MG In NS 520 / 520 Inj 500 ML @ 250 mls/hr IV.SIG WITH DIALYSIS DOMENICO Rx#:[id number] Oral 500 / 500 120 / 120 340 / 340 Anesthesia Amount 50 / 50 50 / 50 Output: Hemodialysis Amount 3000 / 3000 Estimated Blood Loss Other: Date of Last Bowel Movement 04/25/18 04/25/18 04/26/18 # Bowel Movements 2 3 Narrative: GENERAL: Well-developed well-nourished obese. In no acute distress. GENERAL: Middle-aged obese white male SKIN: Warm and dry. HEAD: Atraumatic. Normocephalic. EYES: Pupils equal and round. No scleral icterus. No injection or drainage. ENT: No nasal bleeding or discharge. Mucous membranes pink and moist. NECK: Trachea midline. No JVD. CARDIOVASCULAR: Regular rate and rhythm. RESPIRATORY: No accessory muscle use. Few scattered wheezes anteriorly and breath sounds diminished at bases. GASTROINTESTINAL: Abdomen soft, non-tender, nondistended. Hepatic and splenic margins not palpable. MUSCULOSKELETAL: Extremities without clubbing, cyanosis, or edema. No obvious deformities. NEUROLOGICAL: Awake and alert. No obvious cranial nerve deficits. Motor grossly within normal limits. PSYCHIATRIC: Appropriate mood and affect. Results - Labs CBC & Chem 7: 04/26/18 04:19 04/26/18 04:19 Laboratory Results - last 24 hr 04/25/18 04/25/18 04/26/18 20:26 22:42 03:50 WBC RBC Hgb Hct MCV MCH MCHC RDW Plt Count MPV Neut % (Auto) Lymph % (Auto) [place] % (Auto) Eos % (Auto) Baso % (Auto) Neut # (Auto) Lymph # (Auto) [place] # (Auto) Eos # (Auto) Baso # (Auto) WBC Differential Differential Comment Sodium Potassium Chloride Carbon Dioxide Anion Gap BUN Creatinine Estimated GFR POC Glucose 116 H 131 H 89 Random Glucose Calcium Total Creatine Kinase Triglycerides Cholesterol LDL Cholesterol, Calc HDL Cholesterol Cholesterol/HDL Ratio 04/26/18 04/26/18 04/26/18 04:19 04:19 07:50 WBC 11.6 H RBC 3.40 L Hgb 9.1 L Hct 29.0 L MCV 85.1 MCH 26.7 L MCHC 31.3 L RDW 18.0 H Plt Count 193 MPV 8.5 Neut % (Auto) 81.8 H Lymph % (Auto) 7.3 L [place] % (Auto) 9.3 H Eos % (Auto) 1.3 Baso % (Auto) 0.3 Neut # (Auto) 9.5 H Lymph # (Auto) 0.8 L [place] # (Auto) 1.1 H Eos # (Auto) 0.1 Baso # (Auto) 0.0 WBC Differential . Differential Comment Auto diff final Sodium 136 Potassium 4.1 Chloride 96 L Carbon Dioxide 27.3 Anion Gap 13 BUN 51 H Creatinine 7.22 H Estimated GFR 8 L POC Glucose 98 Random Glucose 82 Calcium 8.9 Total Creatine Kinase 76 Triglycerides 115 Cholesterol 117 L LDL Cholesterol, Calc 46 HDL Cholesterol 48.5 Cholesterol/HDL Ratio 2.41 04/26/18 04/26/18 04/26/18 11:29 13:29 16:02 WBC RBC Hgb Hct MCV MCH MCHC RDW Plt Count MPV Neut % (Auto) Lymph % (Auto) [place] % (Auto) Eos % (Auto) Baso % (Auto) Neut # (Auto) Lymph # (Auto) [place] # (Auto) Eos # (Auto) Baso # (Auto) WBC Differential Differential Comment Sodium Potassium Chloride Carbon Dioxide Anion Gap BUN Creatinine Estimated GFR POC Glucose 145 H 136 H 131 H Random Glucose Calcium Total Creatine Kinase Triglycerides Cholesterol LDL Cholesterol, Calc HDL Cholesterol Cholesterol/HDL Ratio Microbiology 04/24/18 13:51 Blood - Peripheral Aerobic Blood Culture - Preliminary No growth in 2 days 04/24/18 13:51 Blood - Peripheral Anaerobic Blood Culture - Preliminary No growth in 2 days 04/24/18 13:56 Blood - Peripheral Aerobic Blood Culture - Preliminary No growth in 2 days 04/24/18 13:56 Blood - Peripheral Anaerobic Blood Culture - Preliminary No growth in 2 days Assessment and Plan - Assessment (1) Respiratory failure Code(s): J96.90 - Respiratory failure, unspecified, unspecified whether with hypoxia or hypercapnia Status: Acute (2) Metabolic bone disease Code(s): E88.9 - Metabolic disorder, unspecified; M90.80 - Osteopathy in diseases classified elsewhere, unspecified site Status: Acute (3) Supraventricular arrhythmia Code(s): I49.9 - Cardiac arrhythmia, unspecified Status: Acute (4) End stage renal disease Code(s): N18.6 - End stage renal disease Status: Acute (5) Hypertension Code(s): I10 - Essential (primary) hypertension Status: Acute (6) Diabetes Code(s): E11.9 - Type 2 diabetes mellitus without complications Status: Acute (7) End stage renal disease on dialysis Code(s): N18.6 - End stage renal disease; Z99.2 - Dependence on renal dialysis Status: Acute (8) Cardiopulmonary arrest with successful resuscitation Code(s): I46.9 - Cardiac arrest, cause unspecified Status: Acute (9) End stage renal disease on dialysis Code(s): N18.6 - End stage renal disease; Z99.2 - Dependence on renal dialysis Status: Acute - Plan 1 Continue O2 2L N /C daytime 2. Use BiPAP at at bedtime 12/5 and FiO2 of 30% as needed 3. Incentive spirometry every 2 hours bedside 4. Continue antibiotics as ordered 5. DuoNeb nebs 4 times daily. 6. soft diet 7. CBC BMP in a.m. 8. PT for activity 9. Chest x-ray in a.m. 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
[2018-04-27] MEDS: Insulin NovoLIN Regular Correctional Sugar Inj SQ SCH ×6 (00:13→21:03)
[2018-04-27] MEDS ORDERED: Albumin Human 5% Inj 500 ML IV.SIG ONE (02:12)
[2018-04-27] MEDS ORDERED: Metoprolol Inj 5 MG/5 ML Vial IV.PUSH ONE ×2 (02:18→02:30)
[2018-04-27] MEDS: Piperacil/Tazo 2.25 GM Premix 2.25 GM/50 ML PIGGYBACK IV.SIG SCH ×3 (03:12→19:54)
[2018-04-27 03:24] LABS: Baso # (Auto) 0.1 th/mm3 (0.0-0.2); Baso % (Auto) 0.7 % (0.0-2.0); Eos # (Auto) 0.2 th/mm3 (0.0-0.4); Eos % (Auto) 1.5 % (0.0-4.0); Hematocrit 28.2 % (39.0-51.0); Hemoglobin 8.8 gm/dL (13.0-17.0); Lymph # (Auto) 0.7 th/mm3 (1.0-4.8); Lymph % (Auto) 5.2 % (9.0-44.0); Mean Corpuscular HGB Conc 31.3 % (32.0-36.0); Mean Corpuscular Hemoglobin 26.9 pg (27.0-34.0); Mean Corpuscular Volume 85.7 fL (80.0-100.0); Mean Platelet Volume 8.1 fL (7.0-11.0); Mono # (Auto) 1.2 th/mm3 (0.0-0.9); Mono % (Auto) 8.2 % (0.0-8.0); Neut # (Auto) 12.1 th/mm3 (1.8-7.7); Neut % (Auto) 84.4 % (16.0-70.0); Platelet Count 204 th/mm3 (150-450); Red Blood Count 3.29 mil/mm3 (4.50-5.90); Red Cell Distribution Width 17.9 % (11.6-17.2); White Blood Count 14.3 th/mm3 (4.0-11.0)
--- NOTE | 2018-04-27 04:32 | XR ---
EXAM DATE: 04/27/2018 4:14 AM EST AGE/SEX: 57 years / Male INDICATIONS: Edema. CLINICAL DATA: This is the patient's subsequent encounter. Patient reports that signs and symptoms h ave been present for 3 weeks and indicates a pain score of Nonresponsive. MEDICAL/SURGICAL HISTORY: . DM. Renal disease. HTN. Cardiac arrhythmia. Osteopathy. AVF. Erosiv e esophagitis. Blood transfusions. . Kidney transplant. CABG. Appendectomy. PTCA. COMPARISON: C, CHEST 1V SINGLE AP, 04/25/2018. . FINDINGS: There has been improvement in aeration in the left lung base with decrease in confluence of infiltrat e. Small effusion persists. Stable cardiac enlargement and vascular congestion. CONCLUSION: Slightly improved aeration. Electronically signed by: Homero Lewis MD Board Certified Radiologist 04/27/2018 4:31 AM EST
[2018-04-27] MEDS: Isosorbide Mononitrate 60 MG ER 24HR Tablet (Imdur) PO SCH (06:02)
[2018-04-27] MEDS: Vitamin B Complex/Vit C/Folic Tablet PO SCH (09:13)
[2018-04-27] MEDS: Calcitriol 0.25 MCG Capsule PO SCH (09:14)
[2018-04-27] MEDS: Senna/Docusate Sodium 8.6/50 MG Tablet PO SCH ×2 (09:14→20:00)
[2018-04-27] MEDS: predniSONE 5 MG Tablet PO SCH (09:14)
[2018-04-27] MEDS: Pantoprazole Inj 40 MG Vial IV.PUSH SCH (09:15)
[2018-04-27] MEDS: hydrALAZINE 25 MG Tablet PO SCH ×3 (09:16→19:58)
--- NOTE | 2018-04-27 09:50 | P.PNNP ---
Subjective Interval history: patient was seen and examined. Has been transferred out of the ICU. Physical Exam Vital signs: Vital Signs 04/26/18 09:56 04/26/18 10:00 04/26/18 11:00 Temperature Pulse Rate 95 H 96 H 109 H Respiratory Rate 19 21 26 H Blood Pressure 151/68 H Pulse Oximetry 96 100 96 04/26/18 11:13 04/26/18 12:00 04/26/18 13:08 Temperature 98.1 F Pulse Rate 104 H 98 H 16 L Respiratory Rate 35 H 29 H 17 Blood Pressure 162/70 H 162/67 H 149/65 H Pulse Oximetry 97 95 99 04/26/18 14:00 04/26/18 15:13 04/26/18 15:15 Temperature 98.0 F Pulse Rate 98 H 102 H 101 H Respiratory Rate 15 13 Blood Pressure 130/62 128/61 Pulse Oximetry 94 L 94 L 04/26/18 15:30 04/26/18 15:41 04/26/18 16:00 Temperature 98.0 F Pulse Rate 98 H 99 H 98 H Respiratory Rate 14 14 19 Blood Pressure 130/59 L 128/62 Pulse Oximetry 94 L 95 94 L 04/26/18 16:08 04/26/18 16:32 04/26/18 17:00 Temperature Pulse Rate 100 H 99 H 100 H Respiratory Rate 17 14 15 Blood Pressure 144/67 H Pulse Oximetry 95 96 04/26/18 18:00 04/26/18 19:00 04/26/18 19:38 Temperature Pulse Rate 106 H 108 H Respiratory Rate 15 18 Blood Pressure Pulse Oximetry 96 95 96 04/26/18 19:47 04/26/18 20:00 04/26/18 21:00 Temperature 98.3 F Pulse Rate 106 H 106 H 104 H Respiratory Rate 23 16 18 Blood Pressure 130/62 166/75 H 173/72 H Pulse Oximetry 96 96 97 04/26/18 21:50 04/26/18 23:35 04/26/18 23:56 Temperature 99.5 F 98.8 F Pulse Rate 105 H 103 H 104 H Respiratory Rate 18 18 18 Blood Pressure 176/77 H 177/76 H Pulse Oximetry 94 L 97 96 04/27/18 00:00 04/27/18 03:45 04/27/18 04:00 Temperature 97.2 F L 97.8 F Pulse Rate 106 H 91 H 99 H Respiratory Rate 17 18 Blood Pressure 122/58 L 150/70 H Pulse Oximetry 93 L 97 04/27/18 04:31 04/27/18 08:50 Temperature 99 F Pulse Rate 76 94 H Respiratory Rate 11 L 16 Blood Pressure 108/63 Pulse Oximetry 99 97 Intake & Output 04/26/18 04/27/18 04/27/18 18:59 06:59 18:59 Intake Total 790 / 790 970 / 970 Output Total 0 / 0 Balance 780 / 780 970 / 970 Weight 120.3 kg Intake: IV 400 / 400 850 / 850 Alburx 5% Inj 500 ML @ 250 mls/ 500 / 500 hr IV.SIG ONCE ONE Rx#:[id number] Zyvox 600 mg Premix 300 ML @ 300 / 300 300 / 300 300 mls/hr IV.SIG Q12H DOMENICO Rx#: [id number] Zosyn 2.25 GM Premix 2.25 gm In 100 / 100 50 / 50 50 ml @ 100 mls/hr IV.SIG Q8H DOMENICO Rx#:[id number] Oral 340 / 340 120 / 120 Anesthesia Amount 50 / 50 Output: Urine 0 / 0 Estimated Blood Loss Other: Date of Last Bowel Movement 04/26/18 04/26/18 # Bowel Movements 3 0 Narrative: GENERAL: Well-developed well-nourished obese. In no acute distress. GENERAL: Middle-aged obese white male SKIN: Warm and dry. HEAD: Atraumatic. Normocephalic. EYES: Pupils equal and round. No scleral icterus. No injection or drainage. ENT: No nasal bleeding or discharge. Mucous membranes pink and moist. NECK: Trachea midline. No JVD. CARDIOVASCULAR: Regular rate and rhythm. RESPIRATORY: No accessory muscle use. Few scattered wheezes anteriorly and breath sounds diminished at bases. GASTROINTESTINAL: Abdomen soft, non-tender, nondistended. Hepatic and splenic margins not palpable. MUSCULOSKELETAL: Extremities without clubbing, cyanosis, or edema. No obvious deformities. NEUROLOGICAL: Awake and alert. No obvious cranial nerve deficits. Motor grossly within normal limits. PSYCHIATRIC: Appropriate mood and affect. Assessment and Plan - Assessment (1) End stage renal disease Code(s): N18.6 - End stage renal disease Status: Acute Plan: Pateint with ESRD, on Home HD. Patient getting dialysis MWF while hospitalized. Avoid Gadolinium. Monitor fluid and electrolytes. (2) Hypertension Code(s): I10 - Essential (primary) hypertension Status: Acute Qualifiers: Hypertension type: essential hypertension Qualified Code(s): I10 - Essential (primary) hypertension Plan: Continue to monitor. Patient on hydralazine. 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 (4) Cardiopulmonary arrest with successful resuscitation Code(s): I46.9 - Cardiac arrest, cause unspecified Status: Acute Plan: Findings of cardiac cath noted. Reviewed cardiology note. (5) Metabolic bone disease Code(s): E88.9 - Metabolic disorder, unspecified; M90.80 - Osteopathy in diseases classified elsewhere, unspecified site Status: Acute Plan: Sensipar has been held due to hypocalcemia. PTH level 1954, patient on Calcitriol 0.5 mcg po daily. Monitor phosphorus intermittently, he is on Renvela.
--- NOTE | 2018-04-27 15:09 | P.PNVS ---
Subjective Subjective/Hospital Course: 57-year-old male with multiple medical problems currently in workup. Noted to have a large lump in the right antecubital fossa This is consistent with a phlebolith thrombosis of antecubital and proximal basilic vein and most likely septic thrombophlebitis at that I agree with Dr. Duke that this is septic source and should be definitely treated Patient is scheduled today to undergo coronary angioplasty and depending on the results of that patient will be taken to the operating room tomorrow for excision of this provided there are no surprises with coronary angiogram. Excision can be performed under local anesthesia with some sedation and patient does not need to be intubated for this. Full consult has been dictated and please refer for details to this. I discussed this at length with the patient and he understands that there is no significant risk involved in any procedure but if this point I believe that we do not have a choice and patient will seed infection from this to possibly distant sites while the risk of procedure is not steroid certainly lower than most other interventions that this patient had. 04/27/2018 Septic phlebitis site with subcutaneous tissue and surrounding tissue is been excised from the right antecubital fossa Remainder of the tissues appear to be clean Skin and subcutaneous tissue was loosely reapproximated and iodoform packing placed Today I removed iodoform packing washed and redressed the wound Patient will need wound redressed daily and as needed Objective Vital Signs / I&O: Vital Signs 04/26/18 15:13 04/26/18 15:15 04/26/18 15:30 Temperature 98.0 F Pulse Rate 102 H 101 H 98 H Respiratory Rate 15 13 14 Blood Pressure 130/62 128/61 130/59 L Pulse Oximetry 94 L 94 L 94 L 04/26/18 15:41 04/26/18 16:00 04/26/18 16:08 Temperature 98.0 F Pulse Rate 99 H 98 H 100 H Respiratory Rate 14 19 17 Blood Pressure 128/62 144/67 H Pulse Oximetry 95 94 L 95 04/26/18 16:32 04/26/18 17:00 04/26/18 18:00 Temperature Pulse Rate 99 H 100 H 106 H Respiratory Rate 14 15 15 Blood Pressure Pulse Oximetry 96 96 04/26/18 19:00 04/26/18 19:38 04/26/18 19:47 Temperature Pulse Rate 108 H 106 H Respiratory Rate 18 23 Blood Pressure 130/62 Pulse Oximetry 95 96 96 04/26/18 20:00 04/26/18 21:00 04/26/18 21:50 Temperature 98.3 F 99.5 F Pulse Rate 106 H 104 H 105 H Respiratory Rate 16 18 18 Blood Pressure 166/75 H 173/72 H 176/77 H Pulse Oximetry 96 97 94 L 04/26/18 23:35 04/26/18 23:56 04/27/18 00:00 Temperature 98.8 F Pulse Rate 103 H 104 H 106 H Respiratory Rate 18 18 Blood Pressure 177/76 H Pulse Oximetry 97 96 04/27/18 03:45 04/27/18 04:00 04/27/18 04:31 Temperature 97.2 F L 97.8 F Pulse Rate 91 H 99 H 76 Respiratory Rate 17 18 11 L Blood Pressure 122/58 L 150/70 H Pulse Oximetry 93 L 97 99 04/27/18 08:00 04/27/18 08:50 04/27/18 10:35 Temperature 99 F Pulse Rate 98 H 94 H Respiratory Rate 16 Blood Pressure 108/63 Pulse Oximetry 97 95 04/27/18 10:36 04/27/18 12:00 04/27/18 12:20 Temperature 98.1 F Pulse Rate 105 H 127 H 122 H Respiratory Rate 20 16 Blood Pressure 174/107 H Pulse Oximetry 94 L Intake & Output 04/26/18 04/27/18 04/27/18 18:59 06:59 18:59 Intake Total 790 / 790 970 / 970 350 / 350 Output Total 10 / 10 0 / 0 Balance 780 / 780 970 / 970 350 / 350 Weight 120.3 kg Intake: IV 400 / 400 850 / 850 350 / 350 Alburx 5% Inj 500 ML @ 250 mls/ 500 / 500 hr IV.SIG ONCE ONE Rx#:[id number] Zyvox 600 mg Premix 300 ML @ 300 / 300 300 / 300 300 / 300 300 mls/hr IV.SIG Q12H DOMENICO Rx#: [id number] Zosyn 2.25 GM Premix 2.25 gm In 100 / 100 50 / 50 50 / 50 50 ml @ 100 mls/hr IV.SIG Q8H DOMENICO Rx#:[id number] Oral 340 / 340 120 / 120 Anesthesia Amount 50 / 50 Output: Urine 0 / 0 Estimated Blood Loss 10 / 10 Other: Date of Last Bowel Movement 04/26/18 04/26/18 # Bowel Movements 3 0 Laboratory Results - last 24 hr 04/26/18 04/26/18 04/26/18 16:02 20:36 20:37 WBC RBC Hgb Hct MCV MCH MCHC RDW Plt Count MPV Neut % (Auto) Lymph % (Auto) [place] % (Auto) Eos % (Auto) Baso % (Auto) Neut # (Auto) Lymph # (Auto) [place] # (Auto) Eos # (Auto) Baso # (Auto) WBC Differential Differential Comment POC Glucose 131 H 228 H 192 H Random Vancomycin 04/26/18 04/27/18 04/27/18 23:59 03:10 03:10 WBC 14.3 H RBC 3.29 L Hgb 8.8 L Hct 28.2 L MCV 85.7 MCH 26.9 L MCHC 31.3 L RDW 17.9 H Plt Count 204 MPV 8.1 Neut % (Auto) 84.4 H Lymph % (Auto) 5.2 L [place] % (Auto) 8.2 H Eos % (Auto) 1.5 Baso % (Auto) 0.7 Neut # (Auto) 12.1 H Lymph # (Auto) 0.7 L [place] # (Auto) 1.2 H Eos # (Auto) 0.2 Baso # (Auto) 0.1 WBC Differential . Differential Comment Auto diff final POC Glucose 213 H Random Vancomycin 32.4 04/27/18 04/27/18 04/27/18 04:38 07:47 12:13 WBC RBC Hgb Hct MCV MCH MCHC RDW Plt Count MPV Neut % (Auto) Lymph % (Auto) [place] % (Auto) Eos % (Auto) Baso % (Auto) Neut # (Auto) Lymph # (Auto) [place] # (Auto) Eos # (Auto) Baso # (Auto) WBC Differential Differential Comment POC Glucose 135 H 119 H 193 H Random Vancomycin Microbiology 04/24/18 13:51 Aerobic Blood Culture - Preliminary Blood - Peripheral No growth in 3 days Anaerobic Blood Culture - Preliminary No growth in 3 days 04/24/18 13:56 Aerobic Blood Culture - Preliminary Blood - Peripheral No growth in 3 days Anaerobic Blood Culture - Preliminary No growth in 3 days 04/26/18 14:52 Fungal Smear - Final Other No fungal elements seen 04/26/18 14:52 Gram Stain - Final Tissue - Other Impressions Chest X-Ray 04/27/18 00:00 CONCLUSION: Slightly improved aeration.
--- NOTE | 2018-04-27 18:09 | P.PNIM ---
Subjective Interval history: Pt denies fever or chills. Pt is tolerating PO intake without n/v/d. Physical Exam Vital signs: Last Vital Signs Temp 97.8 F 04/27/18 15:30 Pulse 121 H 04/27/18 15:58 Resp 18 04/27/18 15:58 BP 136/73 04/27/18 15:30 Pulse Ox 97 04/27/18 15:30 Narrative: GENERAL: This is a well-nourished, well-developed patient, in no apparent distress. CARDIOVASCULAR: regular RESPIRATORY: Clear to auscultation. Breath sounds equal bilaterally. No wheezes , rales, or rhonchi. GASTROINTESTINAL: Abdomen soft, non-tender, nondistended. Normal active bowel sounds MUSCULOSKELETAL: Extremities without clubbing, cyanosis, or edema. NEURO: Alert & Oriented x4 to person, place, time, situation. Moves all ext x4 Results Labs CBC & Chem 7: 04/30/18 09:42 04/30/18 09:42 Assessment and Plan Plan 1) Cardiopulmonary Arrest with successful recussitation - patient was having a routine colonoscopy and while being sedated he had an asystolic episode. - He received 2 rounds of epinephrine and chest compressions were performed. - He was initially intubated on arrival to the ER and then subsequently was extubated. - On April 15 patient again started having respiratory distress and was intubated again. - Patient was extubated on April 21, 2017 and has been doing well. - [facility] (04/25/18) with Dr. Ramos Arredondo - Successful percutaneous coronary intervention with drug-eluting stent to the mid body of the saphenous vein graft to diagonal branch. - ASA, plavix, imdur, lipitor 2) Septic Thrombophlebitis - comgmt with Vascular Surgery and Infectious Disease - Pt taken to the OR by Dr. Meade. & underwent excision of the antecubital veins and a portion of the basilic vein on the right with tissue cultures, irrigation and packing. - Case d/w Dr. Meade (04/27/18) - Zosyn (04/14 - present) - Vancomycin stopped 04/24 - Zyvox (04/25 - present) - surgical cultures and pathology are pending 2) ESRD on HD - HD ,, Wednesday per Dr. Pedro 3) DM2 - SSI Progress Note: Quality VTE Deep Vein Thrombosis/Pulmonary Embolism Present on Admission: No
[2018-04-27] MEDS: dilTIAZem Inj 125 MG in Sodium Chlor 0.9% Inj 100 ML IV.CONT PRN (23:43)
[2018-04-28] MEDS: Piperacil/Tazo 2.25 GM Premix 2.25 GM/50 ML PIGGYBACK IV.SIG SCH ×2 (02:53→10:46)
[2018-04-28] MEDS: Isosorbide Mononitrate 60 MG ER 24HR Tablet (Imdur) PO SCH (06:27)
[2018-04-28 07:58] LABS: Baso # (Auto) 0.1 th/mm3 (0.0-0.2); Baso % (Auto) 0.5 % (0.0-2.0); Eos # (Auto) 0.2 th/mm3 (0.0-0.4); Eos % (Auto) 1.7 % (0.0-4.0); Hematocrit 24.3 % (39.0-51.0); Hemoglobin 7.6 gm/dL (13.0-17.0); Lymph # (Auto) 0.7 th/mm3 (1.0-4.8); Lymph % (Auto) 5.6 % (9.0-44.0); Mean Corpuscular HGB Conc 31.3 % (32.0-36.0); Mean Corpuscular Hemoglobin 27.2 pg (27.0-34.0); Mean Corpuscular Volume 87.1 fL (80.0-100.0); Mean Platelet Volume 8.4 fL (7.0-11.0); Mono # (Auto) 0.9 th/mm3 (0.0-0.9); Mono % (Auto) 7.5 % (0.0-8.0); Neut % (Auto) 84.7 % (16.0-70.0); Platelet Count 164 th/mm3 (150-450); Red Blood Count 2.79 mil/mm3 (4.50-5.90); Red Cell Distribution Width 17.8 % (11.6-17.2); White Blood Count 11.8 th/mm3 (4.0-11.0)
[2018-04-28] MEDS: Senna/Docusate Sodium 8.6/50 MG Tablet PO SCH ×2 (08:15→20:16)
[2018-04-28] MEDS: hydrALAZINE 25 MG Tablet PO SCH ×3 (08:15→19:27)
[2018-04-28] MEDS: predniSONE 5 MG Tablet PO SCH (08:15)
[2018-04-28] MEDS: Calcitriol 0.25 MCG Capsule PO SCH (08:15)
[2018-04-28] MEDS: Pantoprazole Inj 40 MG Vial IV.PUSH SCH (08:16)
[2018-04-28] MEDS: Vitamin B Complex/Vit C/Folic Tablet PO SCH (08:16)
[2018-04-28 08:22] LABS: Calcium 8.8 mg/dL (8.5-10.1); Carbon Dioxide 24.6 meq/L (21.0-32.0); Magnesium 2.7 mg/dL (1.5-2.5); Potassium 3.7 meq/L (3.5-5.1)
[2018-04-28] MEDS: Insulin NovoLIN Regular Correctional Sugar Inj SQ SCH ×4 (08:27→21:44)
--- NOTE | 2018-04-28 09:13 | P.PNNP ---
Subjective Interval history: he is s/p I & D for right arm abscess and thrombophlebitis. AVF infiltrated yesterday when his arm moved. Patient could not complete dialysis treatment yesterday. To complete this afternoon. Physical Exam Vital signs: Vital Signs 04/27/18 10:35 04/27/18 10:36 04/27/18 12:00 Temperature Pulse Rate 105 H 127 H Respiratory Rate 20 Blood Pressure Pulse Oximetry 95 04/27/18 12:20 04/27/18 15:30 04/27/18 15:58 Temperature 98.1 F 97.8 F Pulse Rate 122 H 122 H 121 H Respiratory Rate 16 16 18 Blood Pressure 174/107 H 136/73 Pulse Oximetry 94 L 97 04/27/18 16:00 04/27/18 20:00 04/27/18 21:25 Temperature 98 F Pulse Rate 121 H 126 H 130 H Respiratory Rate 22 18 Blood Pressure 141/68 H Pulse Oximetry 97 96 04/27/18 23:00 04/27/18 23:50 04/28/18 00:00 Temperature 97.4 F L Pulse Rate 124 H 120 H 125 H Respiratory Rate 22 22 Blood Pressure 131/61 Pulse Oximetry 95 04/28/18 03:28 04/28/18 03:30 04/28/18 04:00 Temperature Pulse Rate 111 H 91 H Respiratory Rate 12 Blood Pressure Pulse Oximetry 96 04/28/18 04:05 04/28/18 07:52 04/28/18 08:08 Temperature 98.3 F 97.2 F L Pulse Rate 118 H 101 H 114 H Respiratory Rate 22 13 18 Blood Pressure 126/58 L 182/76 H Pulse Oximetry 98 99 93 L Intake & Output 04/27/18 04/28/18 04/28/18 18:59 06:59 18:59 Intake Total 350 / 350 640 / 640 Balance 350 / 350 640 / 640 Weight 127.3 kg Intake: IV 350 / 350 400 / 400 Zyvox 600 mg Premix 300 ML @ 300 / 300 300 / 300 300 mls/hr IV.SIG Q12H DOMENICO Rx#: [id number] Zosyn 2.25 GM Premix 2.25 gm In 50 / 50 100 / 100 50 ml @ 100 mls/hr IV.SIG Q8H DOMENICO Rx#:[id number] Oral 240 / 240 Other: # Voids 0 Date of Last Bowel Movement 04/28/18 # Bowel Movements 3 Narrative: GENERAL: Well-developed well-nourished obese. In no acute distress. GENERAL: Middle-aged obese white male SKIN: Warm and dry. HEAD: Atraumatic. Normocephalic. EYES: Pupils equal and round. No scleral icterus. No injection or drainage. ENT: No nasal bleeding or discharge. Mucous membranes pink and moist. NECK: Trachea midline. No JVD. CARDIOVASCULAR: Regular rate and rhythm. RESPIRATORY: No accessory muscle use. Few scattered wheezes anteriorly and breath sounds diminished at bases. GASTROINTESTINAL: Abdomen soft, non-tender, nondistended. Hepatic and splenic margins not palpable. MUSCULOSKELETAL: Dressing over the right arm: the wound was examined after removing dressing. Per RN, there is continuous oozing from the wound. Dressing over AVF in the left forearm. NEUROLOGICAL: Awake and alert. No obvious cranial nerve deficits. Motor grossly within normal limits. PSYCHIATRIC: Appropriate mood and affect. Assessment and Plan - Assessment (1) End stage renal disease Code(s): N18.6 - End stage renal disease Status: Acute Plan: Pateint with ESRD, on Home HD. Patient getting dialysis MWF while hospitalized, he will be dialyzed today to complete treatment. Avoid Gadolinium. Monitor fluid and electrolytes. (2) Hypertension Code(s): I10 - Essential (primary) hypertension Status: Acute Qualifiers: Hypertension type: essential hypertension Qualified Code(s): I10 - Essential (primary) hypertension Plan: Continue to monitor. Patient on hydralazine. 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 (4) Cardiopulmonary arrest with successful resuscitation Code(s): I46.9 - Cardiac arrest, cause unspecified Status: Acute Plan: Findings of cardiac cath noted. Reviewed cardiology note. (5) Metabolic bone disease Code(s): E88.9 - Metabolic disorder, unspecified; M90.80 - Osteopathy in diseases classified elsewhere, unspecified site Status: Acute Plan: Sensipar has been held due to hypocalcemia. PTH level 1954, patient on Calcitriol 0.5 mcg po daily. Monitor phosphorus intermittently, he is on Renvela. (6) Thrombophlebitis arm Code(s): I80.8 - Phlebitis and thrombophlebitis of other sites Status: Acute Plan: s/p I&D. Surgery following. (7) Anemia Code(s): D64.9 - Anemia, unspecified Status: Acute Plan: bleeding from surgery site: Hemoglobin has worsened. Continue Epogen with dialysis. Blood transfusion if necessary, if Hemoglobin falls further. I will give him a dose of Desmopressin to help with platelet function.
[2018-04-28] MEDS: dilTIAZem Inj 125 MG in Sodium Chlor 0.9% Inj 100 ML IV.CONT PRN ×2 (09:20→15:39)
[2018-04-28] MEDS ORDERED: Desmopressin Inj 20 MCG in Sodium Chlor 0.9% Inj 50 ML IV.SIG ONE (11:00)
--- NOTE | 2018-04-28 13:33 | P.PNVS ---
Subjective Subjective/Hospital Course: 57-year-old male with multiple medical problems currently in workup. Noted to have a large lump in the right antecubital fossa This is consistent with a phlebolith thrombosis of antecubital and proximal basilic vein and most likely septic thrombophlebitis at that I agree with Dr. Duke that this is septic source and should be definitely treated Patient is scheduled today to undergo coronary angioplasty and depending on the results of that patient will be taken to the operating room tomorrow for excision of this provided there are no surprises with coronary angiogram. Excision can be performed under local anesthesia with some sedation and patient does not need to be intubated for this. Full consult has been dictated and please refer for details to this. I discussed this at length with the patient and he understands that there is no significant risk involved in any procedure but if this point I believe that we do not have a choice and patient will seed infection from this to possibly distant sites while the risk of procedure is not steroid certainly lower than most other interventions that this patient had. 04/27/2018 Septic phlebitis site with subcutaneous tissue and surrounding tissue is been excised from the right antecubital fossa Remainder of the tissues appear to be clean Skin and subcutaneous tissue was loosely reapproximated and iodoform packing placed Today I removed iodoform packing washed and redressed the wound Patient will need wound redressed daily and as needed 04/28/2018 Incision is clean and dry patient has excellent distal pulses Stitches will remain in place for about total of 2 weeks Dressing change daily Nothing further to add to care will sign off at this time and please let me know if any other issues can be addressed Objective Vital Signs / I&O: Vital Signs 04/27/18 15:30 04/27/18 15:58 04/27/18 16:00 Temperature 97.8 F Pulse Rate 122 H 121 H 121 H Respiratory Rate 16 18 Blood Pressure 136/73 Pulse Oximetry 97 04/27/18 20:00 04/27/18 21:25 04/27/18 23:00 Temperature 98 F 97.4 F L Pulse Rate 126 H 130 H 124 H Respiratory Rate 22 18 22 Blood Pressure 141/68 H 131/61 Pulse Oximetry 97 96 95 04/27/18 23:50 04/28/18 00:00 04/28/18 03:28 Temperature Pulse Rate 120 H 125 H Respiratory Rate 22 Blood Pressure Pulse Oximetry 96 02/14/19 03:30 04/28/18 04:00 04/28/18 04:05 Temperature 98.3 F Pulse Rate 111 H 91 H 118 H Respiratory Rate 12 22 Blood Pressure 126/58 L Pulse Oximetry 98 04/28/18 07:52 04/28/18 08:08 04/28/18 11:30 Temperature 97.2 F L Pulse Rate 101 H 114 H 85 Respiratory Rate 13 18 24 Blood Pressure 182/76 H Pulse Oximetry 99 93 L 04/28/18 12:00 04/28/18 12:07 Temperature 97.8 F Pulse Rate 86 82 Respiratory Rate 18 Blood Pressure 165/87 H Pulse Oximetry 94 L Intake & Output 04/27/18 04/28/18 04/28/18 18:59 06:59 18:59 Intake Total 350 / 350 640 / 640 505 / 505 Balance 350 / 350 640 / 640 505 / 505 Weight 127.3 kg Intake: IV 350 / 350 400 / 400 505 / 505 Cardizem Inj 125 MG In NS Inj 100 / 100 100 ML @ 5 MG/HR 5 mls/hr IV. CONT TITRATE PRN Rx#:[id number] DDAVP Inj 20 MCG In NS Inj 50 55 / 55 ML @ 100.5 mls/hr IV.SIG ONCE ONE Rx#:[id number] Zyvox 600 mg Premix 300 ML @ 300 / 300 300 / 300 300 / 300 300 mls/hr IV.SIG Q12H DOMENICO Rx#: [id number] Zosyn 2.25 GM Premix 2.25 gm In 50 / 50 100 / 100 50 / 50 50 ml @ 100 mls/hr IV.SIG Q8H DOMENICO Rx#:[id number] Oral 240 / 240 Other: # Voids 0 Date of Last Bowel Movement 04/28/18 # Bowel Movements 3 Laboratory Results - last 24 hr 04/27/18 04/28/18 04/28/18 19:47 06:42 06:42 WBC 11.8 H RBC 2.79 L Hgb 7.6 L Hct 24.3 L MCV 87.1 MCH 27.2 MCHC 31.3 L RDW 17.8 H Plt Count 164 MPV 8.4 Neut % (Auto) 84.7 H Lymph % (Auto) 5.6 L [place] % (Auto) 7.5 Eos % (Auto) 1.7 Baso % (Auto) 0.5 Neut # (Auto) 10.0 H Lymph # (Auto) 0.7 L [place] # (Auto) 0.9 Eos # (Auto) 0.2 Baso # (Auto) 0.1 WBC Differential . Differential Comment Auto diff final Sodium 136 Potassium 3.7 Chloride 96 L Carbon Dioxide 24.6 Anion Gap 15 BUN 58 H Creatinine 8.73 H Estimated GFR 6 L POC Glucose 192 H Random Glucose 166 H Calcium 8.8 Magnesium 2.7 H 04/28/18 04/28/18 07:25 11:22 WBC RBC Hgb Hct MCV MCH MCHC RDW Plt Count MPV Neut % (Auto) Lymph % (Auto) [place] % (Auto) Eos % (Auto) Baso % (Auto) Neut # (Auto) Lymph # (Auto) [place] # (Auto) Eos # (Auto) Baso # (Auto) WBC Differential Differential Comment Sodium Potassium Chloride Carbon Dioxide Anion Gap BUN Creatinine Estimated GFR POC Glucose 185 H 256 H Random Glucose Calcium Magnesium Microbiology 04/26/18 14:52 Gram Stain - Final Tissue - Other Wound Culture - Preliminary 04/24/18 13:51 Aerobic Blood Culture - Preliminary Blood - Peripheral No growth in 4 days Anaerobic Blood Culture - Preliminary No growth in 4 days 04/24/18 13:56 Aerobic Blood Culture - Preliminary Blood - Peripheral No growth in 4 days Anaerobic Blood Culture - Preliminary No growth in 4 days 04/26/18 14:52 Acid Fast Bacilli Smear - Final Tissue - Other No acid fast bacilli seen 04/26/18 14:52 Fungal Smear - Final Other No fungal elements seen Impressions Chest X-Ray 04/27/18 00:00 CONCLUSION: Slightly improved aeration.
--- NOTE | 2018-04-28 14:22 | P.PNIM ---
Subjective Interval history: No new complaints. Physical Exam Vital signs: Last Vital Signs Temp 97.8 F 04/28/18 12:07 Pulse 82 04/28/18 12:07 Resp 18 04/28/18 12:07 BP 165/87 H 04/28/18 12:07 Pulse Ox 94 L 04/28/18 12:07 Narrative: GENERAL: This is a well-nourished, well-developed patient, in no apparent distress. CARDIOVASCULAR: regular RESPIRATORY: Clear to auscultation. Breath sounds equal bilaterally. No wheezes , rales, or rhonchi. GASTROINTESTINAL: Abdomen soft, non-tender, nondistended. Normal active bowel sounds MUSCULOSKELETAL: Extremities without clubbing, cyanosis, or edema. NEURO: Alert & Oriented x4 to person, place, time, situation. Moves all ext x4 Results Labs CBC & Chem 7: 04/30/18 09:42 04/30/18 09:42 Assessment and Plan Assessment (1) End stage renal disease: Code(s): N18.6 - End stage renal disease Status: Acute (2) Hypertension: Code(s): I10 - Essential (primary) hypertension Status: Acute (3) Diabetes: Code(s): E11.9 - Type 2 diabetes mellitus without complications Status: Acute Plan: 1) Cardiopulmonary Arrest with successful recussitation - patient was having a routine colonoscopy and while being sedated he had an asystolic episode. - He received 2 rounds of epinephrine and chest compressions were performed. - He was initially intubated on arrival to the ER and then subsequently was extubated. - On April 15 patient again started having respiratory distress and was intubated again. - Patient was extubated on April 21, 2017 and has been doing well. - [facility] (04/25/18) with Dr. Ramos Arredondo - Successful percutaneous coronary intervention with drug-eluting stent to the mid body of the saphenous vein graft to diagonal branch. - ASA, plavix, imdur, lipitor 2) Septic Thrombophlebitis - comgmt with Vascular Surgery and Infectious Disease - Pt taken to the OR by Dr. Meade. & underwent excision of the antecubital veins and a portion of the basilic vein on the right with tissue cultures, irrigation and packing. - Case d/w Dr. Meade (04/27/18) - Zosyn (04/14 - present) - Vancomycin stopped 04/24 - Zyvox (04/25 - present) - surgical cultures and pathology are pending 3) Afib with RVR - IV cardizem - start PO cardizem & trate IV cardizem to off 3) ESRD on HD - HD W,, Wednesday per Dr. Vasquez 4) DM2 - SSI (4) Cardiopulmonary arrest with successful resuscitation: Code(s): I46.9 - Cardiac arrest, cause unspecified Status: Acute (5) Metabolic bone disease: Code(s): E88.9 - Metabolic disorder, unspecified; M90.80 - Osteopathy in diseases classified elsewhere, unspecified site Status: Acute (6) Thrombophlebitis arm: Code(s): I80.8 - Phlebitis and thrombophlebitis of other sites Status: Acute (7) Anemia: Code(s): D64.9 - Anemia, unspecified Status: Acute Plan 1) Cardiopulmonary Arrest with successful recussitation - patient was having a routine colonoscopy and while being sedated he had an asystolic episode. - He received 2 rounds of epinephrine and chest compressions were performed. - He was initially intubated on arrival to the ER and then subsequently was extubated. - On April 15 patient again started having respiratory distress and was intubated again. - Patient was extubated on April 21, 2017 and has been doing well. - [facility] (04/25/18) with Dr. Ramos Arredondo - Successful percutaneous coronary intervention with drug-eluting stent to the mid body of the saphenous vein graft to diagonal branch. - ASA, plavix, imdur, lipitor 2) Septic Thrombophlebitis - comgmt with Vascular Surgery and Infectious Disease - Pt taken to the OR by Dr. Meade. & underwent excision of the antecubital veins and a portion of the basilic vein on the right with tissue cultures, irrigation and packing. - Case d/w Dr. Meade (04/27/18) - Zosyn (04/14 - present) - Vancomycin stopped 04/24 - Zyvox (04/25 - present) - surgical cultures and pathology are pending 2) ESRD on HD - HD W,, Wednesday per Dr. Vasquez 3) DM2 - SSI Progress Note: Quality VTE Deep Vein Thrombosis/Pulmonary Embolism Present on Admission: No _ (1) Diabetes Qualifiers: Chronic kidney disease stage: Diabetes mellitus complication detail: Diabetes mellitus complication status: Diabetes mellitus watermaster insulin use : unspecified skilled nursing insulin use status Diabetes mellitus macular edema: Diabetes mellitus type: Diabetic retinopathy severity: Laterality: Proliferative retinopathy type: (2) Anemia Qualifiers: Anemia type: Bone marrow failure anemia type: Chronic kidney disease stage : Folate deficiency anemia type: Hemolytic anemia type: Iron deficiency anemia type: Other causes of anemia: Vitamin B12 deficiency anemia type: (3) Hypertension Qualifiers: Hypertension type: essential hypertension Qualified Code(s): I10 - Essential (primary) hypertension
[2018-04-28] MEDS: dilTIAZem 60 MG Tablet PO SCH ×2 (19:29→20:15)
[2018-04-29] MEDS: Isosorbide Mononitrate 60 MG ER 24HR Tablet (Imdur) PO SCH (06:02)
--- NOTE | 2018-04-29 09:12 | XR ---
EXAM DATE: 04/29/2018 9:06 AM EST AGE/SEX: 57 years / Male INDICATIONS: Short of breath. CLINICAL DATA: This is the patient's subsequent encounter. Patient reports that signs and symptoms h ave been present for 1 week and indicates a pain score of 0/10. MEDICAL/SURGICAL HISTORY: . DM. Renal disease. HTN. Cardiac arrhythmia. Osteopathy. AVF. Erosi ve esophagitis. Blood transfusions. . Kidney transplant. CABG. Appendectomy. PTCA. COMPARISON: [facility], CHEST 1V SINGLE AP, 04/27/2018. . FINDINGS: The lung mendoza appear to be well aerated bilaterally. No focal parenchymal infiltrates are demonstra mark. The heart size remains diffusely enlarged but stable. There is evidence of previous cardiothorac ic surgery. No definite pleural effusions. No significant change compared to the prior examination. CONCLUSION: Stable examination of the chest compared to the prior examination. Moderate stable diffuse cardiomegaly. Electronically signed by: Isak Roman MD Board Certified Radiologist 04/29/2018 9:11 AM EST
[2018-04-29] MEDS: Insulin NovoLIN Regular Correctional Sugar Inj SQ SCH ×4 (10:10→21:22)
[2018-04-29] MEDS: Vitamin B Complex/Vit C/Folic Tablet PO SCH (10:11)
[2018-04-29] MEDS: hydrALAZINE 25 MG Tablet PO SCH ×3 (10:11→18:37)
[2018-04-29] MEDS: Calcitriol 0.25 MCG Capsule PO SCH (10:12)
[2018-04-29] MEDS: Senna/Docusate Sodium 8.6/50 MG Tablet PO SCH ×2 (10:12→21:26)
[2018-04-29] MEDS: dilTIAZem 60 MG Tablet PO SCH ×4 (10:12→21:26)
[2018-04-29] MEDS: Pantoprazole Inj 40 MG Vial IV.PUSH SCH (10:13)
[2018-04-29] MEDS: predniSONE 5 MG Tablet PO SCH (10:13)
--- NOTE | 2018-04-29 12:26 | P.PNNP ---
Subjective Interval history: Patient was seen, no distress, no complaints. Patient gets dialysis MWF, will be dialyzed today. <Leeann Mcgarry - Last Filed: 04/29/18 12:27> Physical Exam Vital signs: Vital Signs 04/28/18 15:30 04/28/18 16:00 04/28/18 16:07 Temperature 98.0 F Pulse Rate 81 80 88 Respiratory Rate 23 19 Blood Pressure 180/76 H Pulse Oximetry 95 04/28/18 20:00 04/28/18 21:02 04/28/18 23:52 Temperature 98.5 F Pulse Rate 88 88 94 H Respiratory Rate 18 Blood Pressure 121/57 L Pulse Oximetry 92 L 04/29/18 00:00 04/29/18 00:24 04/29/18 03:17 Temperature 97.9 F Pulse Rate 84 Respiratory Rate 16 Blood Pressure 105/61 Pulse Oximetry 95 96 96 04/29/18 03:55 04/29/18 03:56 04/29/18 05:03 Temperature 98.1 F Pulse Rate 90 81 78 Respiratory Rate 18 13 Blood Pressure 131/58 L Pulse Oximetry 99 04/29/18 05:04 04/29/18 07:44 04/29/18 08:00 Temperature 98.7 F Pulse Rate 85 93 H Respiratory Rate 21 16 Blood Pressure 142/74 H Pulse Oximetry 96 95 95 04/29/18 11:06 04/29/18 12:18 Temperature Pulse Rate 86 Respiratory Rate 15 15 Blood Pressure Pulse Oximetry Intake & Output 04/28/18 04/29/18 04/29/18 18:59 06:59 18:59 Intake Total 1085 / 1085 400 / 400 Output Total 400 / 400 3200 / 3200 Balance 685 / 685 -2800 / -2800 Intake: IV 605 / 605 300 / 300 Cardizem Inj 125 MG In NS Inj 200 / 200 100 ML @ 5 MG/HR 5 mls/hr IV. CONT TITRATE PRN Rx#:[id number] DDAVP Inj 20 MCG In NS Inj 50 55 / 55 ML @ 100.5 mls/hr IV.SIG ONCE ONE Rx#:[id number] Zyvox 600 mg Premix 300 ML @ 300 / 300 300 / 300 300 mls/hr IV.SIG Q12H [facility] Rx#: [id number] Zosyn 2.25 GM Premix 2.25 gm In 50 / 50 50 ml @ 100 mls/hr IV.SIG Q8H [facility] Rx#:[id number] Oral 480 / 480 100 / 100 Output: Urine 400 / 400 200 / 200 Hemodialysis Amount 3000 / 3000 Other: Date of Last Bowel Movement 04/28/18 Narrative: GENERAL:NAD, obese SKIN: Warm and dry. HEAD: Atraumatic. Normocephalic. EYES: Pupils equal and round. No scleral icterus. No injection or drainage. ENT: No nasal bleeding or discharge. Mucous membranes pink and moist. NECK: Trachea midline. No JVD. CARDIOVASCULAR: Regular rate and rhythm. RESPIRATORY: No accessory muscle use. Breath sounds diminished at bases. On O2 NC. GASTROINTESTINAL: Abdomen soft, non-tender, nondistended. MUSCULOSKELETAL: Dressing over the right arm. NEUROLOGICAL: Awake and alert. No obvious cranial nerve deficits. Motor grossly within normal limits. PSYCHIATRIC: Appropriate mood and affect. <Leeann Mcgarry - Last Filed: 04/29/18 12:27> Vital signs: Vital Signs 04/28/18 15:30 04/28/18 16:00 04/28/18 16:07 Temperature 98.0 F Pulse Rate 81 80 88 Respiratory Rate 23 19 Blood Pressure 180/76 H Pulse Oximetry 95 04/28/18 20:00 04/28/18 21:02 04/28/18 23:52 Temperature 98.5 F Pulse Rate 88 88 94 H Respiratory Rate 18 Blood Pressure 121/57 L Pulse Oximetry 92 L 04/29/18 00:00 04/29/18 00:24 04/29/18 03:17 Temperature 97.9 F Pulse Rate 84 Respiratory Rate 16 Blood Pressure 105/61 Pulse Oximetry 95 96 96 04/29/18 03:55 04/29/18 03:56 04/29/18 05:03 Temperature 98.1 F Pulse Rate 90 81 78 Respiratory Rate 18 13 Blood Pressure 131/58 L Pulse Oximetry 99 04/29/18 05:04 04/29/18 07:44 04/29/18 08:00 Temperature 98.7 F Pulse Rate 85 93 H Respiratory Rate 21 16 Blood Pressure 142/74 H Pulse Oximetry 96 95 95 04/29/18 11:06 04/29/18 12:00 04/29/18 12:18 Temperature 97.6 F Pulse Rate 93 H 86 Respiratory Rate 15 16 15 Blood Pressure 158/85 H Pulse Oximetry 98 Intake & Output 04/28/18 04/29/18 04/29/18 18:59 06:59 18:59 Intake Total 1085 / 1085 400 / 400 Output Total 400 / 400 3200 / 3200 Balance 685 / 685 -2800 / -2800 Intake: IV 605 / 605 300 / 300 Cardizem Inj 125 MG In NS Inj 200 / 200 100 ML @ 5 MG/HR 5 mls/hr IV. CONT TITRATE PRN Rx#:[id number] DDAVP Inj 20 MCG In NS Inj 50 55 / 55 ML @ 100.5 mls/hr IV.SIG ONCE ONE Rx#:[id number] Zyvox 600 mg Premix 300 ML @ 300 / 300 300 / 300 300 mls/hr IV.SIG Q12H [facility] Rx#: [id number] Zosyn 2.25 GM Premix 2.25 gm In 50 / 50 50 ml @ 100 mls/hr IV.SIG Q8H [facility] Rx#:[id number] Oral 480 / 480 100 / 100 Output: Urine 400 / 400 200 / 200 Hemodialysis Amount 3000 / 3000 Other: Date of Last Bowel Movement 04/28/18 <Tramaine Dixon - Last Filed: 04/29/18 14:44> Assessment and Plan - Assessment (1) End stage renal disease Code(s): N18.6 - End stage renal disease Status: Acute Plan: Pateint with ESRD, on Home HD. Patient getting dialysis MWF while hospitalized, he will be dialyzed today. Avoid Gadolinium. Monitor fluid and electrolytes. (2) Hypertension Code(s): I10 - Essential (primary) hypertension Status: Acute Qualifiers: Hypertension type: essential hypertension Qualified Code(s): I10 - Essential (primary) hypertension Plan: Continue to monitor. Patient on Hydralazine and Cardizem. (3) Diabetes Code(s): E11.9 - Type 2 diabetes mellitus without complications Status: Acute Qualifiers: Diabetes mellitus machine maintenance technician insulin use: unspecified machine maintenance technician insulin use status Plan: Monitor blood glucose.Insulin coverage to maintain blood glucose levels between 140 and 180 while hospitalized. (4) Cardiopulmonary arrest with successful resuscitation Code(s): I46.9 - Cardiac arrest, cause unspecified Status: Acute Plan: s/p cardiac cath. (5) Metabolic bone disease Code(s): E88.9 - Metabolic disorder, unspecified; M90.80 - Osteopathy in diseases classified elsewhere, unspecified site Status: Acute Plan: Sensipar has been held due to hypocalcemia. PTH level 1954, patient on Calcitriol 0.5 mcg po daily. Monitor phosphorus intermittently, he is on Renvela. (6) Thrombophlebitis arm Code(s): I80.8 - Phlebitis and thrombophlebitis of other sites Status: Acute Plan: s/p I&D. Surgery following. Patient on Zosyn and Zyvox. (7) Anemia Code(s): D64.9 - Anemia, unspecified Status: Acute Plan: Continue Epogen with dialysis. Blood transfusion if necessary, if Hemoglobin falls further. CBC for today is pending. <Leeann Mcgarry - Last Filed: 04/29/18 12:27> - Assessment (1) End stage renal disease Code(s): N18.6 - End stage renal disease Status: Acute (2) Hypertension Code(s): I10 - Essential (primary) hypertension Status: Acute Qualifiers: Hypertension type: essential hypertension Qualified Code(s): I10 - Essential (primary) hypertension (3) Diabetes Code(s): E11.9 - Type 2 diabetes mellitus without complications Status: Acute Qualifiers: Diabetes mellitus machine maintenance technician insulin use: unspecified machine maintenance technician insulin use status (4) Cardiopulmonary arrest with successful resuscitation Code(s): I46.9 - Cardiac arrest, cause unspecified Status: Acute (5) Metabolic bone disease Code(s): E88.9 - Metabolic disorder, unspecified; M90.80 - Osteopathy in diseases classified elsewhere, unspecified site Status: Acute (6) Thrombophlebitis arm Code(s): I80.8 - Phlebitis and thrombophlebitis of other sites Status: Acute (7) Anemia Code(s): D64.9 - Anemia, unspecified Status: Acute - Attending Attestation patient was seen and examined. Agree with above assessment and plan. <Tramaine Dixon - Last Filed: 04/29/18 14:44>
--- NOTE | 2018-04-29 12:44 | P.PN ---
Subjective Interval history: Seen and examined. Remains on oxygen at 3-4 L. Use BiPAP at night. Was in dialysis. Denies shortness of breath at rest Physical Exam Vital signs: Vital Signs 04/28/18 15:30 04/28/18 16:00 04/28/18 16:07 Temperature 98.0 F Pulse Rate 81 80 88 Respiratory Rate 23 19 Blood Pressure 180/76 H Pulse Oximetry 95 04/28/18 20:00 04/28/18 21:02 04/28/18 23:52 Temperature 98.5 F Pulse Rate 88 88 94 H Respiratory Rate 18 Blood Pressure 121/57 L Pulse Oximetry 92 L 04/29/18 00:00 04/29/18 00:24 04/29/18 03:17 Temperature 97.9 F Pulse Rate 84 Respiratory Rate 16 Blood Pressure 105/61 Pulse Oximetry 95 96 96 04/29/18 03:55 04/29/18 03:56 04/29/18 05:03 Temperature 98.1 F Pulse Rate 90 81 78 Respiratory Rate 18 13 Blood Pressure 131/58 L Pulse Oximetry 99 04/29/18 05:04 04/29/18 07:44 04/29/18 08:00 Temperature 98.7 F Pulse Rate 85 93 H Respiratory Rate 21 16 Blood Pressure 142/74 H Pulse Oximetry 96 95 95 04/29/18 11:06 04/29/18 12:18 Temperature Pulse Rate 86 Respiratory Rate 15 15 Blood Pressure Pulse Oximetry Intake & Output 04/28/18 04/29/18 04/29/18 18:59 06:59 18:59 Intake Total 1085 / 1085 400 / 400 Output Total 400 / 400 3200 / 3200 Balance 685 / 685 -2800 / -2800 Intake: IV 605 / 605 300 / 300 Cardizem Inj 125 MG In NS Inj 200 / 200 100 ML @ 5 MG/HR 5 mls/hr IV. CONT TITRATE PRN Rx#:[id number] DDAVP Inj 20 MCG In NS Inj 50 55 / 55 ML @ 100.5 mls/hr IV.SIG ONCE ONE Rx#:[id number] Zyvox 600 mg Premix 300 ML @ 300 / 300 300 / 300 300 mls/hr IV.SIG Q12H [facility] Rx#: [id number] Zosyn 2.25 GM Premix 2.25 gm In 50 / 50 50 ml @ 100 mls/hr IV.SIG Q8H [facility] Rx#:[id number] Oral 480 / 480 100 / 100 Output: Urine 400 / 400 200 / 200 Hemodialysis Amount 3000 / 3000 Other: Date of Last Bowel Movement 04/28/18 Narrative: GENERAL:NAD, obese middle-aged white male. SKIN: Warm and dry. HEAD: Atraumatic. Normocephalic. EYES: Pupils equal and round. No scleral icterus. No injection or drainage. ENT: No nasal bleeding or discharge. Mucous membranes pink and moist. NECK: Trachea midline. No JVD. CARDIOVASCULAR: Regular rate and rhythm. RESPIRATORY: No accessory muscle use. Breath sounds diminished at bases. GASTROINTESTINAL: Abdomen soft, non-tender, nondistended. MUSCULOSKELETAL: Dressing over the right arm. NEUROLOGICAL: Awake and alert. No obvious cranial nerve deficits. Motor grossly within normal limits. PSYCHIATRIC: Appropriate mood and affect. Results - Labs CBC & Chem 7: 04/28/18 06:42 04/28/18 06:42 Laboratory Results - last 24 hr 04/28/18 04/28/18 04/29/18 17:08 21:38 07:59 POC Glucose 201 H 175 H 227 H 04/29/18 12:01 POC Glucose 247 H Microbiology 04/24/18 13:51 Blood - Peripheral Aerobic Blood Culture - Final No growth in 5 days 04/24/18 13:51 Blood - Peripheral Anaerobic Blood Culture - Final No growth in 5 days 04/24/18 13:56 Blood - Peripheral Aerobic Blood Culture - Final No growth in 5 days 04/24/18 13:56 Blood - Peripheral Anaerobic Blood Culture - Final No growth in 5 days 04/26/18 14:52 Tissue - Other Gram Stain - Final 04/26/18 14:52 Tissue - Other Wound Culture - Final 04/26/18 14:52 Tissue - Other Acid Fast Bacilli Smear - Final No acid fast bacilli seen - Imaging Impressions Chest X-Ray 04/29/18 08:00 CONCLUSION: Stable examination of the chest compared to the prior examination. Moderate stable diffuse cardiomegaly. Assessment and Plan - Assessment (1) Respiratory failure Code(s): J96.90 - Respiratory failure, unspecified, unspecified whether with hypoxia or hypercapnia Status: Acute (2) Metabolic bone disease Code(s): E88.9 - Metabolic disorder, unspecified; M90.80 - Osteopathy in diseases classified elsewhere, unspecified site Status: Acute (3) Supraventricular arrhythmia Code(s): I49.9 - Cardiac arrhythmia, unspecified Status: Acute (4) End stage renal disease Code(s): N18.6 - End stage renal disease Status: Acute (5) Hypertension Code(s): I10 - Essential (primary) hypertension Status: Acute (6) Diabetes Code(s): E11.9 - Type 2 diabetes mellitus without complications Status: Acute (7) End stage renal disease on dialysis Code(s): N18.6 - End stage renal disease; Z99.2 - Dependence on renal dialysis Status: Acute (8) Cardiopulmonary arrest with successful resuscitation Code(s): I46.9 - Cardiac arrest, cause unspecified Status: Acute (9) End stage renal disease on dialysis Code(s): N18.6 - End stage renal disease; Z99.2 - Dependence on renal dialysis Status: Acute - Plan 1 Continue O2 2L N /C daytime 2. Use BiPAP at at bedtime 02/16 and FiO2 of 30% as needed 3. Incentive spirometry every 2 hours bedside 4. Continue antibiotics as ordered 5. DuoNeb nebs 4 times daily. 6. PFT with bronchodilator 7. CBC BMP chest x-ray Wednesday 8. PT for activity 9. Rehab placement (5) Hypertension Qualifiers: Hypertension type: essential hypertension Qualified Code(s): I10 - Essential (primary) hypertension (6) Diabetes Qualifiers: Diabetes mellitus termite inspector insulin use: unspecified termite inspector insulin use status
--- NOTE | 2018-04-29 16:14 | P.PNIM ---
Subjective Interval history: Pt had HD today. Pt tolerating NC at 4 liters. Physical Exam Vital signs: Last Vital Signs Temp 97.6 F 04/29/18 12:00 Pulse 86 04/29/18 12:18 Resp 15 04/29/18 12:18 BP 158/85 H 04/29/18 12:00 Pulse Ox 98 04/29/18 12:00 Narrative: GENERAL: This is a well-nourished, well-developed patient, in no apparent distress. CARDIOVASCULAR: regular RESPIRATORY: Clear to auscultation. Breath sounds equal bilaterally. No wheezes , rales, or rhonchi. GASTROINTESTINAL: Abdomen soft, non-tender, nondistended. Normal active bowel sounds MUSCULOSKELETAL: Extremities without clubbing, cyanosis, or edema. NEURO: Alert & Oriented x4 to person, place, time, situation. Moves all ext x4 Results Labs CBC & Chem 7: 04/30/18 09:42 04/30/18 09:42 Assessment and Plan Assessment (1) End stage renal disease: Code(s): N18.6 - End stage renal disease Status: Acute (2) Hypertension: Code(s): I10 - Essential (primary) hypertension Status: Acute (3) Diabetes: Code(s): E11.9 - Type 2 diabetes mellitus without complications Status: Acute Plan: 1) Cardiopulmonary Arrest with successful recussitation - patient was having a routine colonoscopy and while being sedated he had an asystolic episode. - He received 2 rounds of epinephrine and chest compressions were performed. - He was initially intubated on arrival to the ER and then subsequently was extubated. - On April 15 patient again started having respiratory distress and was intubated again. - Patient was extubated on April 21, 2017 and has been doing well. - [facility] (04/25/18) with Dr. Ramos Arredondo - Successful percutaneous coronary intervention with drug-eluting stent to the mid body of the saphenous vein graft to diagonal branch. - ASA, plavix, imdur, lipitor 2) Septic Thrombophlebitis - comgmt with Vascular Surgery and Infectious Disease - Pt taken to the OR by Dr. Meade. & underwent excision of the antecubital veins and a portion of the basilic vein on the right with tissue cultures, irrigation and packing. - Case d/w Dr. Meade (04/27/18) - Zosyn stopped - Vancomycin stopped 04/24 - Zyvox (04/25 - 04/29) - Case d/w Dr. Craig (04/29) - Will change abx to Vancomycin on HD days - anticpate d/c on 05/02 or 05/03 3) Afib - off IV cardizem - change PO cardizem to long acting 3) ESRD on HD - HD ,, Wednesday per Dr. Vasquez 4) DM2 - SSI (4) Cardiopulmonary arrest with successful resuscitation: Code(s): I46.9 - Cardiac arrest, cause unspecified Status: Acute (5) Metabolic bone disease: Code(s): E88.9 - Metabolic disorder, unspecified; M90.80 - Osteopathy in diseases classified elsewhere, unspecified site Status: Acute (6) Thrombophlebitis arm: Code(s): I80.8 - Phlebitis and thrombophlebitis of other sites Status: Acute (7) Anemia: Code(s): D64.9 - Anemia, unspecified Status: Acute Plan 1) Cardiopulmonary Arrest with successful recussitation - patient was having a routine colonoscopy and while being sedated he had an asystolic episode. - He received 2 rounds of epinephrine and chest compressions were performed. - He was initially intubated on arrival to the ER and then subsequently was extubated. - On April 15 patient again started having respiratory distress and was intubated again. - Patient was extubated on April 21, 2017 and has been doing well. - [facility] (04/25/18) with Dr. Ramos Arredondo - Successful percutaneous coronary intervention with drug-eluting stent to the mid body of the saphenous vein graft to diagonal branch. - ASA, plavix, imdur, lipitor 2) Septic Thrombophlebitis - comgmt with Vascular Surgery and Infectious Disease - Pt taken to the OR by Dr. Meade. & underwent excision of the antecubital veins and a portion of the basilic vein on the right with tissue cultures, irrigation and packing. - Case d/w Dr. Meade (04/27/18) - Zosyn stopped - Vancomycin stopped 04/24 - Zyvox (04/25 - present) - surgical cultures and pathology are pending 3) Atrial Fibrillation - IV Cardizem stopped - PO Cardizem 4) ESRD on HD - HD W,W, Wednesday per Dr. Vasquez 5) DM2 - SSI Progress Note: Quality VTE Deep Vein Thrombosis/Pulmonary Embolism Present on Admission: No _ (1) Diabetes Qualifiers: Chronic kidney disease stage: Diabetes mellitus complication detail: Diabetes mellitus complication status: Diabetes mellitus chcf insulin use : unspecified chcf insulin use status Diabetes mellitus macular edema: Diabetes mellitus type: Diabetic retinopathy severity: Laterality: Proliferative retinopathy type: (2) Anemia Qualifiers: Anemia type: Bone marrow failure anemia type: Chronic kidney disease stage : Folate deficiency anemia type: Hemolytic anemia type: Iron deficiency anemia type: Other causes of anemia: Vitamin B12 deficiency anemia type: (3) Hypertension Qualifiers: Hypertension type: essential hypertension Qualified Code(s): I10 - Essential (primary) hypertension
--- NOTE | 2018-04-29 16:49 | P.PNADD ---
Addendum to Inpatient Note Reason for Addendum: Additional Documentation Additional information: Patient in HD Cultures reviewed. Discontinue Zyvox IV Start Vanco 1250 mg IV x 1 dose now Start Vanco 1250 mg IV in HD next dose on Wednesday after loading dose today. Will check Vanco level on Wednesday. to cover for me this weekend and available prn.
[2018-04-29] MEDS ORDERED: Vancomycin Inj 1,250 MG in Sodium Chlor 0.9% Inj 250 ML IV.SIG ONE (18:00)
[2018-04-30] MEDS ORDERED: Vancomycin Inj 1,250 MG in Sodium Chlor 0.9% Inj 250 ML IV.SIG ONE ×2
[2018-04-30] MEDS: Isosorbide Mononitrate 60 MG ER 24HR Tablet (Imdur) PO SCH (06:20)
[2018-04-30] MEDS: Insulin NovoLIN Regular Correctional Sugar Inj SQ SCH ×4 (08:26→20:54)
[2018-04-30] MEDS: hydrALAZINE 25 MG Tablet PO SCH ×3 (09:16→17:54)
[2018-04-30] MEDS: dilTIAZem CD 240 MG Capsule PO SCH (09:17)
[2018-04-30] MEDS: Vitamin B Complex/Vit C/Folic Tablet PO SCH (09:17)
[2018-04-30] MEDS: predniSONE 5 MG Tablet PO SCH (09:17)
[2018-04-30] MEDS: Senna/Docusate Sodium 8.6/50 MG Tablet PO SCH ×2 (09:18→20:53)
[2018-04-30] MEDS: Pantoprazole Inj 40 MG Vial IV.PUSH SCH (09:18)
[2018-04-30] MEDS: Calcitriol 0.25 MCG Capsule PO SCH (09:19)
[2018-04-30 10:36] LABS: Baso # (Auto) 0.1 th/mm3 (0.0-0.2); Baso % (Auto) 0.6 % (0.0-2.0); Eos # (Auto) 0.2 th/mm3 (0.0-0.4); Eos % (Auto) 1.4 % (0.0-4.0); Hematocrit 25.3 % (39.0-51.0); Hemoglobin 7.8 gm/dL (13.0-17.0); Lymph # (Auto) 0.8 th/mm3 (1.0-4.8); Lymph % (Auto) 7.4 % (9.0-44.0); Mean Corpuscular Hemoglobin 27.1 pg (27.0-34.0); Mean Corpuscular Volume 87.4 fL (80.0-100.0); Mean Platelet Volume 8.6 fL (7.0-11.0); Mono # (Auto) 0.8 th/mm3 (0.0-0.9); Mono % (Auto) 6.9 % (0.0-8.0); Neut # (Auto) 9.3 th/mm3 (1.8-7.7); Neut % (Auto) 83.7 % (16.0-70.0); Platelet Count 170 th/mm3 (150-450); Red Cell Distribution Width 18.5 % (11.6-17.2); White Blood Count 11.1 th/mm3 (4.0-11.0)
[2018-04-30 10:59] LABS: Calcium 9.7 mg/dL (8.5-10.1); Carbon Dioxide 26.6 meq/L (21.0-32.0); Potassium 3.8 meq/L (3.5-5.1)
--- NOTE | 2018-04-30 12:46 | P.PNPL ---
Subjective Interval history: Patient is sitting in chair in NAD. On 3L oxygen. Afebrile. Physical Exam Vital signs: Vital Signs 04/29/18 20:00 04/29/18 20:08 04/29/18 20:50 Temperature 97.9 F Pulse Rate 87 103 H Respiratory Rate 20 Blood Pressure 109/53 L Pulse Oximetry 97 94 L 04/29/18 21:37 04/29/18 23:30 04/30/18 00:00 Temperature 97.1 F L Pulse Rate 87 88 Respiratory Rate 16 20 18 Blood Pressure 123/54 L Pulse Oximetry 95 04/30/18 00:15 04/30/18 00:20 04/30/18 03:35 Temperature Pulse Rate 84 Respiratory Rate Blood Pressure Pulse Oximetry 96 97 04/30/18 03:50 04/30/18 04:00 04/30/18 04:08 Temperature 98 F Pulse Rate 88 92 H Respiratory Rate 20 18 Blood Pressure 108/53 L Pulse Oximetry 99 04/30/18 08:00 04/30/18 11:53 04/30/18 12:00 Temperature 98 F 98 F Pulse Rate 87 94 H 100 H Respiratory Rate 20 20 20 Blood Pressure 128/61 130/74 Pulse Oximetry 98 96 94 L Intake & Output 04/29/18 04/30/18 04/30/18 18:59 06:59 18:59 Intake Total 520 / 520 515 / 515 Output Total 3000 / 3000 Balance 520 / 520 -2485 / -2485 Weight 102.9 kg Intake: IV 275 / 275 Vancomycin Inj 1,250 MG In NS 275 / 275 Inj 250 ML @ 250 mls/hr IV.SIG ONCE ONE Rx#:[id number] Oral 520 / 520 240 / 240 Output: Urine 0 / 0 Hemodialysis Amount 3000 / 3000 Other: # Voids 3 Date of Last Bowel Movement 04/29/18 # Bowel Movements 1 1 - Constitutional no acute distress, morbidly obese - Routine HEENT Exam Head: Present: normocephalic, atraumatic Eye: Present: EOMI, PERRL, normal accommodation, conjunctivae pink - Routine Neck Exam Present: supple, full ROM, trachea midline - Routine Respiratory Exam Present: CTA bilaterally - Routine Cardiovascular Exam Present: RRR, S1, S2 - Routine Abdominal Exam Present: soft, normoactive bowel sounds - Routine Extremities Exam Present: edema, full ROM, pulses intact - Routine Skin Exam Present: intact - Routine Neurological Exam Present: alert, oriented X3, CN II-XII intact Assessment and Plan - Plan 1. Resp Insuff 2. s/p post cardiopulmonary arrest, asystolic event during colonoscopy 3. ESRD, on hemodialysis. 4. Leukocytosis. 5. Anemia. 6. Obesity 7. Hypertension. 8. Diabetes mellitus. 9. COPD 10. Previous renal transplant in 2004. 11. CAD/CABG in 2003. 12. GERD 13. SVT - Plan Wean down oxygen keep sats >92% Bronchodilators, IS BiPAP qhs 12/5 and FiO2 of 30% as needed On Prednisone 5mg daily Abx per ID- On Vanco with HD. Monitor CBC- on Epogen. Monitor renal function, HD per renal. GI/DVT prophylaxis
--- NOTE | 2018-04-30 18:36 | P.PNIM ---
Subjective Interval history: No new complaints. Physical Exam Vital signs: Last Vital Signs Temp 98.3 F 04/30/18 16:00 Pulse 96 H 04/30/18 16:15 Resp 20 04/30/18 16:15 BP 139/61 04/30/18 16:00 Pulse Ox 94 L 04/30/18 16:00 Narrative: GENERAL: This is a well-nourished, well-developed patient, in no apparent distress. CARDIOVASCULAR: regular RESPIRATORY: Clear to auscultation. Breath sounds equal bilaterally. No wheezes , rales, or rhonchi. GASTROINTESTINAL: Abdomen soft, non-tender, nondistended. Normal active bowel sounds MUSCULOSKELETAL: Extremities without clubbing, cyanosis, or edema. NEURO: Alert & Oriented x4 to person, place, time, situation. Moves all ext x4 Results Labs CBC & Chem 7: 04/30/18 09:42 04/30/18 09:42 Assessment and Plan Assessment (1) End stage renal disease: Code(s): N18.6 - End stage renal disease Status: Acute (2) Hypertension: Code(s): I10 - Essential (primary) hypertension Status: Acute (3) Diabetes: Code(s): E11.9 - Type 2 diabetes mellitus without complications Status: Acute Plan: 1) Cardiopulmonary Arrest with successful recussitation - patient was having a routine colonoscopy and while being sedated he had an asystolic episode. - He received 2 rounds of epinephrine and chest compressions were performed. - He was initially intubated on arrival to the ER and then subsequently was extubated. - On April 15 patient again started having respiratory distress and was intubated again. - Patient was extubated on April 21, 2017 and has been doing well. - [facility] (04/25/18) with Dr. Ramos Arredondo - Successful percutaneous coronary intervention with drug-eluting stent to the mid body of the saphenous vein graft to diagonal branch. - ASA, plavix, imdur, lipitor 2) Septic Thrombophlebitis - comgmt with Vascular Surgery and Infectious Disease - Pt taken to the OR by Dr. Meade. & underwent excision of the antecubital veins and a portion of the basilic vein on the right with tissue cultures, irrigation and packing. - Case d/w Dr. Meade (04/27/18) - Zosyn stopped - Vancomycin stopped 04/24 - Zyvox (04/25 - 04/29) - Case d/w Dr. Craig (04/29) - Vancomycin on HD days - to review vancomycin level 05/02 - anticpate d/c on 05/02 or 05/03 3) Afib - off IV cardizem - change PO cardizem to long acting 3) ESRD on HD - HD ,, Wednesday per Dr. Vasquez 4) DM2 - SSI (4) Cardiopulmonary arrest with successful resuscitation: Code(s): I46.9 - Cardiac arrest, cause unspecified Status: Acute (5) Metabolic bone disease: Code(s): E88.9 - Metabolic disorder, unspecified; M90.80 - Osteopathy in diseases classified elsewhere, unspecified site Status: Acute (6) Thrombophlebitis arm: Code(s): I80.8 - Phlebitis and thrombophlebitis of other sites Status: Acute (7) Anemia: Code(s): D64.9 - Anemia, unspecified Status: Acute Plan 1) Cardiopulmonary Arrest with successful recussitation - patient was having a routine colonoscopy and while being sedated he had an asystolic episode. - He received 2 rounds of epinephrine and chest compressions were performed. - He was initially intubated on arrival to the ER and then subsequently was extubated. - On April 15 patient again started having respiratory distress and was intubated again. - Patient was extubated on April 21, 2017 and has been doing well. - [facility] (04/25/18) with Dr. Ramos Arredondo - Successful percutaneous coronary intervention with drug-eluting stent to the mid body of the saphenous vein graft to diagonal branch. - ASA, plavix, imdur, lipitor 2) Septic Thrombophlebitis - comgmt with Vascular Surgery and Infectious Disease - Pt taken to the OR by Dr. Meade. & underwent excision of the antecubital veins and a portion of the basilic vein on the right with tissue cultures, irrigation and packing. - Case d/w Dr. Meade (04/27/18) - Zosyn stopped - Vancomycin stopped 04/24 - Zyvox (04/25 - present) - surgical cultures and pathology are pending 3) Atrial Fibrillation - IV Cardizem stopped - PO Cardizem 4) ESRD on HD - HD W,W, Wednesday per Dr. Vasquez 5) DM2 - SSI Progress Note: Quality VTE Deep Vein Thrombosis/Pulmonary Embolism Present on Admission: No _ (1) Diabetes Qualifiers: Chronic kidney disease stage: Diabetes mellitus complication detail: Diabetes mellitus complication status: Diabetes mellitus terminal make up operator insulin use : unspecified care home insulin use status Diabetes mellitus macular edema: Diabetes mellitus type: Diabetic retinopathy severity: Laterality: Proliferative retinopathy type: (2) Anemia Qualifiers: Anemia type: Bone marrow failure anemia type: Chronic kidney disease stage : Folate deficiency anemia type: Hemolytic anemia type: Iron deficiency anemia type: Other causes of anemia: Vitamin B12 deficiency anemia type: (3) Hypertension Qualifiers: Hypertension type: essential hypertension Qualified Code(s): I10 - Essential (primary) hypertension
--- NOTE | 2018-04-30 21:13 | P.PNNP ---
Subjective Interval history: Patient seen in the afternoon, not in distress. Physical Exam Vital signs: Vital Signs 04/29/18 21:37 04/29/18 23:30 04/30/18 00:00 Temperature 97.1 F L Pulse Rate 87 88 Respiratory Rate 16 20 18 Blood Pressure 123/54 L Pulse Oximetry 95 04/30/18 00:15 04/30/18 00:20 04/30/18 03:35 Temperature Pulse Rate 84 Respiratory Rate Blood Pressure Pulse Oximetry 96 97 04/30/18 03:50 04/30/18 04:00 04/30/18 04:08 Temperature 98 F Pulse Rate 88 92 H Respiratory Rate 20 18 Blood Pressure 108/53 L Pulse Oximetry 99 04/30/18 08:00 04/30/18 11:53 04/30/18 12:00 Temperature 98 F 98 F Pulse Rate 90 94 H 95 H Respiratory Rate 20 20 20 Blood Pressure 128/61 130/74 Pulse Oximetry 98 96 94 L 04/30/18 16:00 04/30/18 16:15 Temperature 98.3 F Pulse Rate 95 H 96 H Respiratory Rate 20 20 Blood Pressure 139/61 Pulse Oximetry 94 L Intake & Output 04/30/18 04/30/18 05/01/18 06:59 18:59 06:59 Intake Total 515 / 515 1010 / 1010 Output Total 3000 / 3000 3010 / 3010 Balance -2485 / -2485 -1999 / Weight 102.9 kg Intake: IV 275 / 275 Vancomycin Inj 1,250 MG In NS 275 / 275 Inj 250 ML @ 250 mls/hr IV.SIG ONCE ONE Rx#:[id number] Oral 240 / 240 240 / 240 Tube Feeding 570 / 570 Tube Irrigant 150 / 150 Anesthesia Amount 50 / 50 Output: Urine 0 / 0 0 / 0 Hemodialysis Amount 3000 / 3000 3000 / 3000 Estimated Blood Loss 10 / 10 Other: # Voids 3 Date of Last Bowel Movement 04/29/18 04/29/18 # Bowel Movements 1 1 # Incontinent Bowel Movements 2 Narrative: GENERAL:NAD, obese middle-aged white male. SKIN: Warm and dry. HEAD: Atraumatic. Normocephalic. EYES: Pupils equal and round. No scleral icterus. No injection or drainage. ENT: No nasal bleeding or discharge. Mucous membranes pink and moist. NECK: Trachea midline. No JVD. CARDIOVASCULAR: Regular rate and rhythm. RESPIRATORY: No accessory muscle use. Breath sounds diminished at bases. GASTROINTESTINAL: Abdomen soft, non-tender, nondistended. MUSCULOSKELETAL: Dressing over the right arm. NEUROLOGICAL: Awake and alert. No obvious cranial nerve deficits. Motor grossly within normal limits. PSYCHIATRIC: Appropriate mood and affect. Assessment and Plan - Assessment (1) End stage renal disease Code(s): N18.6 - End stage renal disease Status: Acute Plan: Patient with ESRD, on Home HD. Patient getting dialysis MWF while hospitalized, Last HD was done yesterday. Avoid Gadolinium. Monitor fluid and electrolytes. (2) Hypertension Code(s): I10 - Essential (primary) hypertension Status: Acute Qualifiers: Hypertension type: essential hypertension Qualified Code(s): I10 - Essential (primary) hypertension Plan: Continue to monitor. Patient on Hydralazine and Cardizem. 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 (4) Cardiopulmonary arrest with successful resuscitation Code(s): I46.9 - Cardiac arrest, cause unspecified Status: Acute Plan: s/p cardiac cath. (5) Metabolic bone disease Code(s): E88.9 - Metabolic disorder, unspecified; M90.80 - Osteopathy in diseases classified elsewhere, unspecified site Status: Acute Plan: Sensipar has been held due to hypocalcemia. PTH level 1954, patient on Calcitriol 0.5 mcg po daily. Monitor phosphorus intermittently, he is on Renvela. (6) Thrombophlebitis arm Code(s): I80.8 - Phlebitis and thrombophlebitis of other sites Status: Acute Plan: s/p I&D. Surgery following. Patient on Zosyn and Zyvox. (7) Anemia Code(s): D64.9 - Anemia, unspecified Status: Acute Plan: Continue Epogen with dialysis. Blood transfusion if necessary, if Hemoglobin falls further. CBC for today is pending.
[2018-05-01] MEDS: Isosorbide Mononitrate 60 MG ER 24HR Tablet (Imdur) PO SCH (06:57)
[2018-05-01] MEDS: Insulin NovoLIN Regular Correctional Sugar Inj SQ SCH ×4 (07:51→20:30)
[2018-05-01] MEDS: hydrALAZINE 25 MG Tablet PO SCH ×3 (09:43→18:30)
[2018-05-01] MEDS: predniSONE 5 MG Tablet PO SCH (09:44)
[2018-05-01] MEDS: dilTIAZem CD 240 MG Capsule PO SCH (09:44)
[2018-05-01] MEDS: Vitamin B Complex/Vit C/Folic Tablet PO SCH (09:44)
[2018-05-01] MEDS: Senna/Docusate Sodium 8.6/50 MG Tablet PO SCH ×2 (09:45→20:28)
[2018-05-01] MEDS: Pantoprazole Inj 40 MG Vial IV.PUSH SCH (09:46)
[2018-05-01] MEDS: Calcitriol 0.25 MCG Capsule PO SCH (09:46)
--- NOTE | 2018-05-01 12:26 | P.PNPL ---
Subjective Interval history: Patient is on 2L oxygen Afebrile Physical Exam Vital signs: Vital Signs 04/30/18 16:00 04/30/18 16:15 04/30/18 20:00 Temperature 98.3 F 97.9 F Pulse Rate 95 H 96 H 92 H Respiratory Rate 20 20 18 Blood Pressure 139/61 110/62 Pulse Oximetry 94 L 94 L 04/30/18 20:13 04/30/18 23:46 05/01/18 00:00 Temperature 97.8 F Pulse Rate 93 H 102 H 101 H Respiratory Rate 18 16 Blood Pressure 116/58 L Pulse Oximetry 93 L 95 05/01/18 00:09 05/01/18 00:30 05/01/18 03:25 Temperature Pulse Rate 102 H 98 H Respiratory Rate 22 12 Blood Pressure Pulse Oximetry 99 99 05/01/18 04:00 05/01/18 08:00 05/01/18 08:50 Temperature 98 F 98 F Pulse Rate 92 H 107 H 103 H Respiratory Rate 18 16 Blood Pressure 117/53 L 163/83 H Pulse Oximetry 96 95 05/01/18 08:58 Temperature Pulse Rate 88 Respiratory Rate 18 Blood Pressure Pulse Oximetry 95 Intake & Output 04/30/18 05/01/18 05/01/18 18:59 06:59 18:59 Intake Total 1010 / 1010 240 / 240 Output Total 3010 / 3010 Balance -1999 / -1999 240 / 240 Intake: Oral 240 / 240 240 / 240 Tube Feeding 570 / 570 Tube Irrigant 150 / 150 Anesthesia Amount 50 / 50 Output: Urine 0 / 0 Hemodialysis Amount 3000 / 3000 Estimated Blood Loss 10 / 10 Other: # Voids 3 200 Date of Last Bowel Movement 04/29/18 04/30/18 04/30/18 # Bowel Movements 1 # Incontinent Bowel Movements 2 - Constitutional no acute distress, morbidly obese - Routine HEENT Exam Head: Present: normocephalic, atraumatic Eye: Present: EOMI, PERRL, normal accommodation, conjunctivae pink ENT: Present: mucous membranes moist - Routine Neck Exam Present: supple, full ROM, trachea midline - Routine Respiratory Exam Present: CTA bilaterally - Routine Cardiovascular Exam Present: RRR, S1, S2 - Routine Abdominal Exam Present: soft, normoactive bowel sounds - Routine Extremities Exam Present: edema, full ROM - Routine Skin Exam Present: intact, dry - Routine Neurological Exam Present: alert, oriented X3, CN II-XII intact Assessment and Plan - Plan 1. Resp Insuff 2. s/p post cardiopulmonary arrest, asystolic event during colonoscopy 3. ESRD, on hemodialysis. 4. Leukocytosis. 5. Anemia. 6. Obesity 7. Hypertension. 8. Diabetes mellitus. 9. COPD 10. Previous renal transplant in 2004. 11. CAD/CABG in 2003. 12. GERD 13. SVT - Plan Continue with oxygen keep sats >92% Bronchodilators, IS BiPAP qhs / and FiO2 of 30% as needed On Prednisone 5mg daily Check CXR in am after HD. Abx per ID- On Vanco with HD. Monitor CBC- on Epogen. Monitor renal function, for HD tomorrow GI/DVT prophylaxis
--- NOTE | 2018-05-01 16:39 | P.PNIM ---
Subjective Interval history: Pt voices NO new clinical complaints. Physical Exam Vital signs: Last Vital Signs Temp 98.2 F 05/01/18 12:30 Pulse 100 H 05/01/18 12:30 Resp 16 05/01/18 12:30 BP 150/88 H 05/01/18 12:30 Pulse Ox 97 05/01/18 12:30 Narrative: GENERAL: This is a well-nourished, well-developed patient, in no apparent distress. CARDIOVASCULAR: regular RESPIRATORY: Clear to auscultation. Breath sounds equal bilaterally. No wheezes , rales, or rhonchi. GASTROINTESTINAL: Abdomen soft, non-tender, nondistended. Normal active bowel sounds MUSCULOSKELETAL: Extremities without clubbing, cyanosis, or edema. NEURO: Alert & Oriented x4 to person, place, time, situation. Moves all ext x4 Results Labs CBC & Chem 7: 05/02/18 06:40 05/02/18 06:40 Assessment and Plan Assessment (1) End stage renal disease: Code(s): N18.6 - End stage renal disease Status: Acute (2) Hypertension: Code(s): I10 - Essential (primary) hypertension Status: Acute (3) Diabetes: Code(s): E11.9 - Type 2 diabetes mellitus without complications Status: Acute Plan: 1) Cardiopulmonary Arrest with successful recussitation - patient was having a routine colonoscopy and while being sedated he had an asystolic episode. - He received 2 rounds of epinephrine and chest compressions were performed. - He was initially intubated on arrival to the ER and then subsequently was extubated. - On April 15 patient again started having respiratory distress and was intubated again. - Patient was extubated on April 21, 2017 and has been doing well. - [facility] (04/25/18) with Dr. Ramos Arredondo - Successful percutaneous coronary intervention with drug-eluting stent to the mid body of the saphenous vein graft to diagonal branch. - ASA, plavix, imdur, lipitor 2) Septic Thrombophlebitis - comgmt with Vascular Surgery and Infectious Disease - Pt taken to the OR by Dr. Meade. & underwent excision of the antecubital veins and a portion of the basilic vein on the right with tissue cultures, irrigation and packing. - Case d/w Dr. Meade (04/27/18) - Zosyn stopped - Vancomycin stopped 04/24 - Zyvox (04/25 - 04/29) - Case d/w Dr. Craig (04/29) - Vancomycin on HD days - to review vancomycin level 05/02 - anticpate d/c on 05/02 or 05/03 3) Afib - off IV cardizem - change PO cardizem to long acting 3) ESRD on HD - HD ,, Wednesday per Dr. Vasquez 4) DM2 - SSI (4) Cardiopulmonary arrest with successful resuscitation: Code(s): I46.9 - Cardiac arrest, cause unspecified Status: Acute (5) Metabolic bone disease: Code(s): E88.9 - Metabolic disorder, unspecified; M90.80 - Osteopathy in diseases classified elsewhere, unspecified site Status: Acute (6) Thrombophlebitis arm: Code(s): I80.8 - Phlebitis and thrombophlebitis of other sites Status: Acute (7) Anemia: Code(s): D64.9 - Anemia, unspecified Status: Acute Plan 1) Cardiopulmonary Arrest with successful recussitation - patient was having a routine colonoscopy and while being sedated he had an asystolic episode. - He received 2 rounds of epinephrine and chest compressions were performed. - He was initially intubated on arrival to the ER and then subsequently was extubated. - On April 15 patient again started having respiratory distress and was intubated again. - Patient was extubated on April 21, 2017 and has been doing well. - [facility] (04/25/18) with Dr. Ramos Arreodndo - Successful percutaneous coronary intervention with drug-eluting stent to the mid body of the saphenous vein graft to diagonal branch. - ASA, plavix, imdur, lipitor 2) Septic Thrombophlebitis - comgmt with Vascular Surgery and Infectious Disease - Pt taken to the OR by Dr. Meade. & underwent excision of the antecubital veins and a portion of the basilic vein on the right with tissue cultures, irrigation and packing. - Case d/w Dr. Meade (04/27/18) - Zosyn stopped - Vancomycin stopped 04/24 - Zyvox (04/25 - present) - surgical cultures and pathology are pending 3) Atrial Fibrillation - IV Cardizem stopped - PO Cardizem 4) ESRD on HD - HD W,W, Wednesday per Dr. Vasquez 5) DM2 - SSI Progress Note: Quality VTE Deep Vein Thrombosis/Pulmonary Embolism Present on Admission: No _ (1) Diabetes Qualifiers: Chronic kidney disease stage: Diabetes mellitus complication detail: Diabetes mellitus complication status: Diabetes mellitus terminal press operator insulin use : unspecified fpc insulin use status Diabetes mellitus macular edema: Diabetes mellitus type: Diabetic retinopathy severity: Laterality: Proliferative retinopathy type: (2) Anemia Qualifiers: Anemia type: Bone marrow failure anemia type: Chronic kidney disease stage : Folate deficiency anemia type: Hemolytic anemia type: Iron deficiency anemia type: Other causes of anemia: Vitamin B12 deficiency anemia type: (3) Hypertension Qualifiers: Hypertension type: essential hypertension Qualified Code(s): I10 - Essential (primary) hypertension
--- NOTE | 2018-05-01 19:10 | P.PNNP ---
Subjective Interval history: Patient is alert, no SOB, not in distress. Physical Exam Vital signs: Vital Signs 04/30/18 20:00 04/30/18 20:13 04/30/18 23:46 Temperature 97.9 F Pulse Rate 92 H 93 H 102 H Respiratory Rate 18 18 Blood Pressure 110/62 Pulse Oximetry 94 L 93 L 05/01/18 00:00 05/01/18 00:09 05/01/18 00:30 Temperature 97.8 F Pulse Rate 101 H 102 H Respiratory Rate 16 22 Blood Pressure 116/58 L Pulse Oximetry 95 99 05/01/18 03:25 05/01/18 04:00 05/01/18 08:00 Temperature 98 F Pulse Rate 98 H 92 H 107 H Respiratory Rate 12 18 Blood Pressure 117/53 L Pulse Oximetry 99 96 05/01/18 08:50 05/01/18 08:58 05/01/18 12:00 Temperature 98 F Pulse Rate 103 H 88 100 H Respiratory Rate 16 18 Blood Pressure 163/83 H Pulse Oximetry 95 95 05/01/18 12:30 05/01/18 16:00 05/01/18 17:17 Temperature 98.2 F 97.7 F Pulse Rate 100 H 97 H 90 Respiratory Rate 16 16 18 Blood Pressure 150/88 H 143/73 H Pulse Oximetry 97 96 Intake & Output 05/01/18 05/01/18 05/02/18 06:59 18:59 06:59 Intake Total 240 / 240 1010 / 1010 Output Total 3010 / 3010 Balance 240 / 240 -2000 / -1999 Intake: Oral 240 / 240 240 / 240 Tube Feeding 570 / 570 Tube Irrigant 150 / 150 Anesthesia Amount 50 / 50 Output: Urine 0 / 0 Hemodialysis Amount 3000 / 3000 Estimated Blood Loss 10 / 10 Other: # Voids 200 200 Date of Last Bowel Movement 04/30/18 04/30/18 # Bowel Movements 1 # Incontinent Bowel Movements 2 Narrative: GENERAL:NAD, obese middle-aged white male. SKIN: Warm and dry. HEAD: Atraumatic. Normocephalic. EYES: Pupils equal and round. No scleral icterus. No injection or drainage. ENT: No nasal bleeding or discharge. Mucous membranes pink and moist. NECK: Trachea midline. No JVD. CARDIOVASCULAR: Regular rate and rhythm. RESPIRATORY: No accessory muscle use. Breath sounds diminished at bases. GASTROINTESTINAL: Abdomen soft, non-tender, nondistended. MUSCULOSKELETAL: Dressing over the right arm. NEUROLOGICAL: Awake and alert. No obvious cranial nerve deficits. Motor grossly within normal limits. PSYCHIATRIC: Appropriate mood and affect. Assessment and Plan - Assessment (1) End stage renal disease Code(s): N18.6 - End stage renal disease Status: Acute Plan: Patient with ESRD, on Home HD. Patient getting dialysis MWF while hospitalized, Last HD was done Wednesday. Avoid Gadolinium. Monitor fluid and electrolytes. Patient is requesting tomorrow AM HD, due to increase swelling. I ask Take Off Man HD RN to place him AM HD. Dr. Dixon will follow from AM. (2) Hypertension Code(s): I10 - Essential (primary) hypertension Status: Acute Qualifiers: Hypertension type: essential hypertension Qualified Code(s): I10 - Essential (primary) hypertension Plan: Continue to monitor. Patient on Hydralazine and Cardizem. (3) Diabetes Code(s): E11.9 - Type 2 diabetes mellitus without complications Status: Acute Qualifiers: Diabetes mellitus skilled nursing insulin use: unspecified shower attendant insulin use status Plan: Monitor blood glucose.Insulin coverage to maintain blood glucose levels between 140 and 180 while hospitalized. (4) Cardiopulmonary arrest with successful resuscitation Code(s): I46.9 - Cardiac arrest, cause unspecified Status: Acute Plan: s/p cardiac cath. (5) Metabolic bone disease Code(s): E88.9 - Metabolic disorder, unspecified; M90.80 - Osteopathy in diseases classified elsewhere, unspecified site Status: Acute Plan: Sensipar has been held due to hypocalcemia. PTH level 1954, patient on Calcitriol 0.5 mcg po daily. Monitor phosphorus intermittently, he is on Renvela. (6) Thrombophlebitis arm Code(s): I80.8 - Phlebitis and thrombophlebitis of other sites Status: Acute Plan: s/p I&D. Surgery following. Patient on Zosyn and Zyvox. (7) Anemia Code(s): D64.9 - Anemia, unspecified Status: Acute Plan: Continue Epogen with dialysis. Blood transfusion if necessary, if Hemoglobin falls further. CBC for today is pending.
[2018-05-02] MEDS: Isosorbide Mononitrate 60 MG ER 24HR Tablet (Imdur) PO SCH (06:02)
[2018-05-02 08:02] LABS: Baso # (Auto) 0.1 th/mm3 (0.0-0.2); Baso % (Auto) 0.8 % (0.0-2.0); Eos # (Auto) 0.1 th/mm3 (0.0-0.4); Eos % (Auto) 1.4 % (0.0-4.0); Hemoglobin 7.4 gm/dL (13.0-17.0); Lymph % (Auto) 11.1 % (9.0-44.0); Mean Corpuscular HGB Conc 32.2 % (32.0-36.0); Mean Corpuscular Hemoglobin 27.5 pg (27.0-34.0); Mean Corpuscular Volume 85.3 fL (80.0-100.0); Mean Platelet Volume 8.3 fL (7.0-11.0); Mono # (Auto) 0.7 th/mm3 (0.0-0.9); Mono % (Auto) 7.4 % (0.0-8.0); Neut # (Auto) 7.4 th/mm3 (1.8-7.7); Neut % (Auto) 79.3 % (16.0-70.0); Platelet Count 147 th/mm3 (150-450); Red Cell Distribution Width 17.7 % (11.6-17.2); White Blood Count 9.4 th/mm3 (4.0-11.0)
[2018-05-02] MEDS: Insulin NovoLIN Regular Correctional Sugar Inj SQ SCH ×4 (08:13→21:55)
[2018-05-02 08:32] LABS: Calcium 9.2 mg/dL (8.5-10.1); Carbon Dioxide 27.4 meq/L (21.0-32.0); Magnesium 2.5 mg/dL (1.5-2.5); Phosphorus 6.6 mg/dL (2.5-4.9); Potassium 3.6 meq/L (3.5-5.1)
--- NOTE | 2018-05-02 08:36 | XR ---
EXAM DATE: 05/02/2018 8:29 AM EST AGE/SEX: 57 years / Male INDICATIONS: Shortness of breath. CLINICAL DATA: This is the patient's subsequent encounter. Patient reports that signs and symptoms h ave been present for 1 week and indicates a pain score of 0/10. MEDICAL/SURGICAL HISTORY: . DM. Renal disease. HTN. Cardiac arrhythmia. Osteopathy. AVF. Erosiv e esophagitis. Blood transfusions. . Kidney transplant. CABG. Appendectomy. PTCA. COMPARISON: C, CHEST 1V SINGLE AP, 04/29/2018. . FINDINGS: The heart is enlarged. Sternal wires previous bypass are noted. Mild interstitial edema is present. M inimal bibasilar parenchymal changes are evident without significant pleural effusion. The portion of the bony skeleton visualized is unremarkable. CONCLUSION: Moderate congestive failure Electronically signed by: Trung Bang MD Board Certified Radiologist 05/02/2018 8:35 AM EST
--- NOTE | 2018-05-02 09:40 | P.PNIM ---
Subjective Interval history: pt doing ok. wants hhc/pt and not snf. Physical Exam Vital signs: Last Vital Signs Temp 98.6 F 05/02/18 08:00 Pulse 80 05/02/18 08:42 Resp 20 05/02/18 08:42 BP 107/62 05/02/18 08:00 Pulse Ox 94 L 05/02/18 08:00 Narrative: GENERAL: This is a well-nourished, well-developed patient, in no apparent distress. CARDIOVASCULAR: regular RESPIRATORY: Clear to auscultation. Breath sounds equal bilaterally. No wheezes , rales, or rhonchi. GASTROINTESTINAL: Abdomen soft, non-tender, nondistended. Normal active bowel sounds MUSCULOSKELETAL: Extremities without clubbing, cyanosis, or edema. NEURO: Alert & Oriented x4 to person, place, time, situation. Moves all ext x4 Results Labs CBC & Chem 7: 05/02/18 06:40 05/02/18 06:40 Assessment and Plan Assessment (1) End stage renal disease: Code(s): N18.6 - End stage renal disease Status: Acute (2) Hypertension: Code(s): I10 - Essential (primary) hypertension Status: Acute (3) Diabetes: Code(s): E11.9 - Type 2 diabetes mellitus without complications Status: Acute Plan: 1) Cardiopulmonary Arrest with successful recussitation - patient was having a routine colonoscopy and while being sedated he had an asystolic episode. - He received 2 rounds of epinephrine and chest compressions were performed. - He was initially intubated on arrival to the ER and then subsequently was extubated. - On April 15 patient again started having respiratory distress and was intubated again. - Patient was extubated on April 21, 2017 and has been doing well. - [facility] (04/25/18) with Dr. Ramos Arredondo - Successful percutaneous coronary intervention with drug-eluting stent to the mid body of the saphenous vein graft to diagonal branch. - ASA, plavix, imdur, lipitor 2) Septic Thrombophlebitis - comgmt with Vascular Surgery and Infectious Disease - Pt taken to the OR by Dr. Meade. & underwent excision of the antecubital veins and a portion of the basilic vein on the right with tissue cultures, irrigation and packing. - Case d/w Dr. Meade (04/27/18) - Zosyn stopped - Vancomycin stopped 04/24 - Zyvox (04/25 - 04/29) - Case d/w Dr. Blair (04/29) - Vancomycin on HD days - to review vancomycin level 05/02 3) Afib - off IV cardizem - change PO cardizem to long acting 3) ESRD on HD - HD m/w/f 4) DM2 - SSI 5) anemia. multifactorial discuss prbc transfusion with DR Hernandez at HD> (4) Cardiopulmonary arrest with successful resuscitation: Code(s): I46.9 - Cardiac arrest, cause unspecified Status: Acute (5) Metabolic bone disease: Code(s): E88.9 - Metabolic disorder, unspecified; M90.80 - Osteopathy in diseases classified elsewhere, unspecified site Status: Acute (6) Thrombophlebitis arm: Code(s): I80.8 - Phlebitis and thrombophlebitis of other sites Status: Acute (7) Anemia: Code(s): D64.9 - Anemia, unspecified Status: Acute Plan 1) Cardiopulmonary Arrest with successful recussitation - patient was having a routine colonoscopy and while being sedated he had an asystolic episode. - He received 2 rounds of epinephrine and chest compressions were performed. - He was initially intubated on arrival to the ER and then subsequently was extubated. - On April 15 patient again started having respiratory distress and was intubated again. - Patient was extubated on April 21, 2017 and has been doing well. - [facility] (04/25/18) with Dr. Ramos Arredondo - Successful percutaneous coronary intervention with drug-eluting stent to the mid body of the saphenous vein graft to diagonal branch. - ASA, plavix, imdur, lipitor 2) Septic Thrombophlebitis - comgmt with Vascular Surgery and Infectious Disease - Pt taken to the OR by Dr. Meade. & underwent excision of the antecubital veins and a portion of the basilic vein on the right with tissue cultures, irrigation and packing. - Case d/w Dr. Meade (04/27/18) - Zosyn stopped - Vancomycin stopped 04/24 - Zyvox (04/25 - present) - surgical cultures and pathology are pending 3) Atrial Fibrillation - IV Cardizem stopped - PO Cardizem 4) ESRD on HD - HD W,W, Wednesday per Dr. 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
--- NOTE | 2018-05-02 12:13 | P.PNNP ---
Subjective Interval history: Patient was seen, no distress. Patient to get dialysis today. Patient gets dialysis MWF. <Leeann Mcgarry - Last Filed: 05/02/18 12:07> Physical Exam Vital signs: Vital Signs 05/01/18 12:30 05/01/18 16:00 05/01/18 17:17 Temperature 98.2 F 97.7 F Pulse Rate 100 H 97 H 90 Respiratory Rate 16 16 18 Blood Pressure 150/88 H 143/73 H Pulse Oximetry 97 96 05/01/18 19:29 05/01/18 20:00 05/01/18 21:10 Temperature 97.1 F L Pulse Rate 97 H 95 H 88 Respiratory Rate 18 16 Blood Pressure 114/56 L Pulse Oximetry 94 L 99 05/01/18 23:10 05/02/18 00:00 05/02/18 00:15 Temperature 98.0 F Pulse Rate 92 H 94 H 78 Respiratory Rate 18 24 Blood Pressure 108/54 L Pulse Oximetry 94 L 05/02/18 00:30 05/02/18 03:20 05/02/18 03:31 Temperature 97.3 F L Pulse Rate 93 H 95 H Respiratory Rate 18 22 Blood Pressure 110/53 L Pulse Oximetry 98 96 05/02/18 04:00 05/02/18 06:33 05/02/18 08:00 Temperature 97.5 F L 98.6 F Pulse Rate 96 H 88 107 H Respiratory Rate 18 17 18 Blood Pressure 148/81 H 107/62 Pulse Oximetry 94 L 94 L 05/02/18 08:42 Temperature Pulse Rate 80 Respiratory Rate 20 Blood Pressure Pulse Oximetry Intake & Output 05/01/18 05/02/18 05/02/18 18:59 06:59 18:59 Intake Total 1010 / 1010 720 / 720 Output Total 3010 / 3010 0 / 0 4000 / 4000 Balance -2000 / -2000 720 / 720 -4000 / -4000 Weight 116.6 kg Intake: Oral 240 / 240 720 / 720 Tube Feeding 570 / 570 Tube Irrigant 150 / 150 Anesthesia Amount 50 / 50 Output: Urine 0 / 0 0 / 0 Hemodialysis Amount 3000 / 3000 4000 / 4000 Estimated Blood Loss 10 / 10 Other: # Voids 200 Date of Last Bowel Movement 04/30/18 05/01/18 05/01/18 # Bowel Movements 1 1 # Incontinent Bowel Movements 2 Narrative: GENERAL:NAD, obese middle-aged white male. SKIN: Warm and dry. HEAD: Atraumatic. Normocephalic. EYES: Pupils equal and round. No scleral icterus. No injection or drainage. ENT: No nasal bleeding or discharge. Mucous membranes pink and moist. NECK: Trachea midline. No JVD. CARDIOVASCULAR: Regular rate and rhythm. RESPIRATORY: Breath sounds diminished at bases. Wheezing. GASTROINTESTINAL: Abdomen soft, non-tender, nondistended. MUSCULOSKELETAL: Dressing over the right arm. Bilateral lower extremity edema. NEUROLOGICAL: Awake and alert. No obvious cranial nerve deficits. Motor grossly within normal limits. PSYCHIATRIC: Appropriate mood and affect. <Leeann Mcgarry - Last Filed: 05/02/18 12:07> Vital signs: Vital Signs 05/01/18 21:10 05/01/18 23:10 05/02/18 00:00 Temperature 98.0 F Pulse Rate 88 92 H 94 H Respiratory Rate 16 18 Blood Pressure 108/54 L Pulse Oximetry 99 94 L 05/02/18 00:15 05/02/18 00:30 05/02/18 03:20 Temperature 97.3 F L Pulse Rate 78 93 H Respiratory Rate 24 18 Blood Pressure 110/53 L Pulse Oximetry 98 96 05/02/18 03:31 05/02/18 04:00 05/02/18 06:33 Temperature 97.5 F L Pulse Rate 95 H 96 H 88 Respiratory Rate 22 18 17 Blood Pressure 148/81 H Pulse Oximetry 94 L 05/02/18 08:00 05/02/18 08:42 05/02/18 12:00 Temperature 98.6 F 98.5 F Pulse Rate 92 H 80 98 H Respiratory Rate 18 20 18 Blood Pressure 107/62 151/91 H Pulse Oximetry 94 L 96 05/02/18 15:50 05/02/18 16:00 05/02/18 18:18 Temperature 98.3 F Pulse Rate 53 L 108 H Respiratory Rate 20 18 Blood Pressure 109/58 L Pulse Oximetry 96 96 05/02/18 19:59 Temperature Pulse Rate 96 H Respiratory Rate 20 Blood Pressure Pulse Oximetry 94 L Intake & Output 05/02/18 05/02/18 05/03/18 06:59 18:59 06:59 Intake Total 720 / 720 810 / 810 Output Total 0 / 0 4000 / 4000 Balance 720 / 720 -3190 / -3190 Weight 116.6 kg Intake: IV 250 / 250 Vancomycin Inj 1,250 MG In NS 250 / 250 Inj 250 ML @ 250 mls/hr IV.SIG WITH DIALYSIS PRN Rx#:[id number] Oral 720 / 720 560 / 560 Output: Urine 0 / 0 Hemodialysis Amount 4000 / 4000 Other: Date of Last Bowel Movement 05/01/18 05/01/18 # Bowel Movements 1 1 <Tramaine Dixon - Last Filed: 05/02/18 20:34> Assessment and Plan - Assessment (1) End stage renal disease Code(s): N18.6 - End stage renal disease Status: Acute Plan: Patient with ESRD, on Home HD. Patient getting dialysis MWF while hospitalized, patient to be dialyzed today. Due to increase in swelling requested 4 L be pulled in UF during HD today. . Avoid Gadolinium. Monitor fluid and electrolytes. (2) Hypertension Code(s): I10 - Essential (primary) hypertension Status: Acute Qualifiers: Hypertension type: essential hypertension Qualified Code(s): I10 - Essential (primary) hypertension Plan: Continue to monitor. Patient on Hydralazine and Cardizem. 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 (4) Cardiopulmonary arrest with successful resuscitation Code(s): I46.9 - Cardiac arrest, cause unspecified Status: Acute Plan: s/p cardiac cath. (5) Metabolic bone disease Code(s): E88.9 - Metabolic disorder, unspecified; M90.80 - Osteopathy in diseases classified elsewhere, unspecified site Status: Acute Plan: Sensipar has been held due to hypocalcemia. PTH level 1954, patient on Calcitriol 0.5 mcg po daily. Monitor phosphorus intermittently, he is on Renvela. (6) Thrombophlebitis arm Code(s): I80.8 - Phlebitis and thrombophlebitis of other sites Status: Acute Plan: s/p I&D. Surgery following. Patient on Vanco. (7) Anemia Code(s): D64.9 - Anemia, unspecified Status: Acute Plan: Continue Epogen with dialysis. Blood transfusion if necessary. 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 He was seen before dialysis, he appeared to have signs of fluid overload, later dialysis was done, 4 liters removed in dialysis. Repeat CXR demonstrated improvement. May consider an extra dialysis tomorrow. <Tramaine Dixon - Last Filed: 05/02/18 20:34>
[2018-05-02] MEDS: Vancomycin Inj 1,250 MG in Sodium Chlor 0.9% Inj 250 ML IV.SIG PRN (12:19)
--- NOTE | 2018-05-02 12:41 | P.PN ---
Subjective Interval history: Is being dialyzed today. Uses CPAP from home. On O2 at 2 L Overall feels better. No cough and less wheezing. Physical Exam Vital signs: Vital Signs 05/01/18 16:00 05/01/18 17:17 05/01/18 19:29 Temperature 97.7 F 97.1 F L Pulse Rate 97 H 90 97 H Respiratory Rate 16 18 18 Blood Pressure 143/73 H 114/56 L Pulse Oximetry 96 94 L 05/01/18 20:00 05/01/18 21:10 05/01/18 23:10 Temperature 98.0 F Pulse Rate 95 H 88 92 H Respiratory Rate 16 18 Blood Pressure 108/54 L Pulse Oximetry 99 94 L 05/02/18 00:00 05/02/18 00:15 05/02/18 00:30 Temperature Pulse Rate 94 H 78 Respiratory Rate 24 Blood Pressure Pulse Oximetry 98 05/02/18 03:20 05/02/18 03:31 05/02/18 04:00 Temperature 97.3 F L Pulse Rate 93 H 95 H 96 H Respiratory Rate 18 22 18 Blood Pressure 110/53 L Pulse Oximetry 96 05/02/18 06:33 05/02/18 08:00 05/02/18 08:42 Temperature 97.5 F L 98.6 F Pulse Rate 88 107 H 80 Respiratory Rate 17 18 20 Blood Pressure 148/81 H 107/62 Pulse Oximetry 94 L 94 L Intake & Output 05/01/18 05/02/18 05/02/18 18:59 06:59 18:59 Intake Total 1010 / 1010 720 / 720 250 / 250 Output Total 3010 / 3010 0 / 0 4000 / 4000 Balance -2000 / -2000 720 / 720 -3750 / -3750 Weight 116.6 kg Intake: IV 250 / 250 Vancomycin Inj 1,250 MG In NS 250 / 250 Inj 250 ML @ 250 mls/hr IV.SIG WITH DIALYSIS PRN Rx#:[id number] Oral 240 / 240 720 / 720 Tube Feeding 570 / 570 Tube Irrigant 150 / 150 Anesthesia Amount 50 / 50 Output: Urine 0 / 0 0 / 0 Hemodialysis Amount 3000 / 3000 4000 / 4000 Estimated Blood Loss 10 / 10 Other: # Voids 200 Date of Last Bowel Movement 04/30/18 05/01/18 05/01/18 # Bowel Movements 1 1 # Incontinent Bowel Movements 2 Narrative: GENERAL:NAD, obese middle-aged white male. SKIN: Warm and dry. HEAD: Atraumatic. Normocephalic. EYES: Pupils equal and round. No scleral icterus. No injection or drainage. ENT: No nasal bleeding or discharge. Mucous membranes pink and moist. NECK: Trachea midline. No JVD. CARDIOVASCULAR: Regular rate and rhythm. RESPIRATORY: Breath sounds diminished at bases. With wheezing. GASTROINTESTINAL: Abdomen soft, non-tender, nondistended. MUSCULOSKELETAL: Dressing over the right arm. Bilateral lower extremity edema. NEUROLOGICAL: Awake and alert. No obvious cranial nerve deficits. Motor grossly within normal limits. PSYCHIATRIC: Appropriate mood and affect. Results - Labs CBC & Chem 7: 05/02/18 06:40 05/02/18 06:40 Laboratory Results - last 24 hr 05/01/18 05/01/18 05/02/18 16:50 19:29 06:40 WBC RBC Hgb Hct MCV MCH MCHC RDW Plt Count MPV Neut % (Auto) Lymph % (Auto) [place] % (Auto) Eos % (Auto) Baso % (Auto) Neut # (Auto) Lymph # (Auto) [place] # (Auto) Eos # (Auto) Baso # (Auto) WBC Differential Differential Comment Sodium 136 Potassium 3.6 Chloride 96 L Carbon Dioxide 27.4 Anion Gap 13 BUN 53 H Creatinine 9.17 H Estimated GFR 6 L POC Glucose 181 H 227 H Random Glucose 120 H Calcium 9.2 Phosphorus 6.6 H Magnesium 2.5 05/02/18 05/02/18 05/02/18 06:40 08:13 11:46 WBC 9.4 RBC 2.70 L Hgb 7.4 L Hct 23.0 L MCV 85.3 MCH 27.5 MCHC 32.2 RDW 17.7 H Plt Count 147 L MPV 8.3 Neut % (Auto) 79.3 H Lymph % (Auto) 11.1 [place] % (Auto) 7.4 Eos % (Auto) 1.4 Baso % (Auto) 0.8 Neut # (Auto) 7.4 Lymph # (Auto) 1.0 [place] # (Auto) 0.7 Eos # (Auto) 0.1 Baso # (Auto) 0.1 WBC Differential . Differential Comment Auto diff final Sodium Potassium Chloride Carbon Dioxide Anion Gap BUN Creatinine Estimated GFR POC Glucose 143 H 101 Random Glucose Calcium Phosphorus Magnesium - Imaging Impressions Chest X-Ray 02/18/19 08:00 CONCLUSION: Moderate congestive failure Assessment and Plan - Assessment (1) Respiratory failure Code(s): J96.90 - Respiratory failure, unspecified, unspecified whether with hypoxia or hypercapnia Status: Acute (2) Metabolic bone disease Code(s): E88.9 - Metabolic disorder, unspecified; M90.80 - Osteopathy in diseases classified elsewhere, unspecified site Status: Acute (3) Supraventricular arrhythmia Code(s): I49.9 - Cardiac arrhythmia, unspecified Status: Acute (4) End stage renal disease Code(s): N18.6 - End stage renal disease Status: Acute (5) Hypertension Code(s): I10 - Essential (primary) hypertension Status: Acute (6) Diabetes Code(s): E11.9 - Type 2 diabetes mellitus without complications Status: Acute (7) End stage renal disease on dialysis Code(s): N18.6 - End stage renal disease; Z99.2 - Dependence on renal dialysis Status: Acute (8) Cardiopulmonary arrest with successful resuscitation Code(s): I46.9 - Cardiac arrest, cause unspecified Status: Acute (9) End stage renal disease on dialysis Code(s): N18.6 - End stage renal disease; Z99.2 - Dependence on renal dialysis Status: Acute - Plan 1 Continue O2 2L N /C daytime 2. Use CPAP at at bedtime and may use home CPAP 3. Incentive spirometry every 2 hours bedside 4. Continue antibiotics as ordered 5. DuoNeb nebs 4 times daily. 6. PFT with bronchodilator 7. CBC BMP in a.m. 8. PT for activity 9. 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
[2018-05-02] MEDS: hydrALAZINE 25 MG Tablet PO SCH ×3 (13:11→17:41)
[2018-05-02] MEDS: Calcitriol 0.25 MCG Capsule PO SCH (13:12)
[2018-05-02] MEDS: predniSONE 5 MG Tablet PO SCH (13:12)
[2018-05-02] MEDS: dilTIAZem CD 240 MG Capsule PO SCH (13:12)
[2018-05-02] MEDS: Vitamin B Complex/Vit C/Folic Tablet PO SCH (13:14)
[2018-05-02] MEDS: Senna/Docusate Sodium 8.6/50 MG Tablet PO SCH ×2 (13:14→21:55)
[2018-05-02] MEDS: Pantoprazole Inj 40 MG Vial IV.PUSH SCH (13:20)
--- NOTE | 2018-05-02 15:11 | XR ---
EXAM DATE: 05/02/2018 3:06 PM EST AGE/SEX: 57 years / Male INDICATIONS: Shortness of breath. Respiratory distress. CLINICAL DATA: This is the patient's subsequent encounter. Patient reports that signs and symptoms h ave been present for 1 week and indicates a pain score of 0/10. MEDICAL/SURGICAL HISTORY: . DM. Renal disease. HTN. Cardiac arrhythmia. Osteopathy. AVF. Erosiv e esophagitis. Blood transfusions. . Kidney transplant. CABG. Appendectomy. PTCA. COMPARISON: [facility], CHEST 1V SINGLE AP, 05/02/2018. . FINDINGS: Sternal wires from previous bypass are noted. The heart is enlarged. There is no significant failure. There is no pleural effusion. Very minimal pa rental changes are present in the left base. CONCLUSION: Cardiomegaly without overt failure Minimal parenchymal changes left base Electronically signed by: Trung Bang MD Board Certified Radiologist 05/02/2018 3:10 PM EST
--- NOTE | 2018-05-02 16:27 | P.DIET ---
Nutritional Evaluation Type of nutrition evaluation: follow-up Nutrition consult regarding: Diet Evaluation Subjective Subjective Comments: Eating 100% Objective - Diagnosis Cardiopulmonary arrest with rosc - Objective % IBW: 159 Body Weight Used for Calculations: IBW (78.2kg) Energy Needs - Lower Range (kCal/kg): 25 Energy Needs - Upper Range (kCal/kg): 30 Lower Limit kCal/kg (kCals): 1,955 Upper Limit kCal/kg (kCals): 2,346 Lower Limit Protein Factor (Grams per Kg): 1.2 Upper Limit Protein Factor (Grams per Kg): 1.4 Lower Protein Needs (Protein): 94 Upper Protein Needs (Protein): 110 Dietitian Reviewed in Medical Record: Current diet, Curent medications, Intake & Output, Labs, Medical history Diet Order: 2 gm Na Oral Diet Intake Amount: Excellent 90%+ Assessment Assessment: Pt was extubated on 04/21/18 and had TF d/alirio. He is tolerating a 2 gm Na diet with good po intake and his BMI is 35.9. Please Consult RD if needed. Recommendations: Continue current POC.
[2018-05-03] MEDS: Isosorbide Mononitrate 60 MG ER 24HR Tablet (Imdur) PO SCH (06:41)
[2018-05-03] MEDS: Insulin NovoLIN Regular Correctional Sugar Inj SQ SCH ×4 (07:52→21:44)
--- NOTE | 2018-05-03 08:57 | P.PNID ---
Subjective Remarks: Mr. Salguero is a 57-year-old male with multiple medical problems including end-stage renal disease was on hemodialysis and followed by Dr. Vogel. Patient reports that he is status post renal transplant in 2004 but ended up needing dialysis. Patient reports that he has a left forearm AV fistula which is functional and is being used for hemodialysis. Patient's past medical history is also significant for morbid obesity, coronary artery disease with previous coronary artery bypass grafting in 2003. Per review of records it appears that patient was having a routine colonoscopy and while being sedated he had an asystolic episode. He received 2 rounds of epinephrine and chest compressions were performed. He was initially intubated on arrival to the ER and then subsequently was extubated. On April 15 patient again started having respiratory distress and was intubated again. Patient has been undergoing hemodialysis during this hospitalization. Patient was extubated on April 21, 2017 and has been doing well. Patient's noticed that on the right upper extremity on possibly a IV or blood draw site there was some redness noted and she brought her to the attention of the critical care physician. Due to elevated white count and concern for infection infectious disease was consulted and Dr. Suero personally discussed the case with me. Blood cultures were drawn and patient was empirically started on antibiotics appropriately. At the time of my evaluation patient is in the intensive medical care unit currently awake alert oriented x3. He denies any complaints other than soreness at the site of the right upper extremity AC fossa area with possible phlebitis. DELAYED ENTRY NOTE FOR 05/02/2018 Overnight events reviewed. No fever No rash No diarrhea s/p removal/excision of the involved vein. complained of shortness of breath CXR ordered after HD after dw . Antibiotics: Zosyn IV Vancomycin IV Lines: Line sites with no evidence of infection. Past Medical History: Reviewed. Allergies/Adverse Reactions: Allergies No Known Allergies Allergy (Verified 04/11/18 10:33) Objective Vital Signs 05/02/18 12:00 05/02/18 15:50 05/02/18 16:00 Temperature 98.5 F 98.3 F Pulse Rate 98 H 53 L 108 H Respiratory Rate 18 20 18 Blood Pressure 151/91 H 109/58 L Pulse Oximetry 96 96 05/02/18 18:18 05/02/18 19:59 05/02/18 20:00 Temperature 97.9 F Pulse Rate 96 H 97 H Respiratory Rate 20 16 Blood Pressure 116/57 L Pulse Oximetry 96 94 L 95 05/03/18 00:00 05/03/18 00:24 05/03/18 04:00 Temperature 98.1 F 97.7 F Pulse Rate 98 H 109 H 92 H Respiratory Rate 16 20 17 Blood Pressure 115/62 110/52 L Pulse Oximetry 97 98 05/03/18 04:44 05/03/18 08:00 Temperature 98.3 F Pulse Rate 83 92 H Respiratory Rate 18 20 Blood Pressure 138/53 L Pulse Oximetry 95 Intake & Output 05/02/18 05/03/18 05/03/18 18:59 06:59 18:59 Intake Total 810 / 810 240 / 240 Output Total 4000 / 4000 200 / 200 Balance -3190 / -3190 40 / 40 Weight 116.6 kg Intake: IV 250 / 250 Vancomycin Inj 1,250 MG In NS 250 / 250 Inj 250 ML @ 250 mls/hr IV.SIG WITH DIALYSIS PRN Rx#:[id number] Oral 560 / 560 240 / 240 Output: Urine 200 / 200 Hemodialysis Amount 4000 / 4000 Other: Date of Last Bowel Movement 05/01/18 05/02/18 # Bowel Movements 1 Lab - Hematology Results 05/02/18 06:40 WBC 9.4 RBC 2.70 L Hgb 7.4 L Hct 23.0 L MCV 85.3 MCH 27.5 MCHC 32.2 RDW 17.7 H Plt Count 147 L MPV 8.3 Neut % (Auto) 79.3 H Lymph % (Auto) 11.1 Quay % (Auto) 7.4 Eos % (Auto) 1.4 Baso % (Auto) 0.8 Neut # (Auto) 7.4 Lymph # (Auto) 1.0 Quay # (Auto) 0.7 Eos # (Auto) 0.1 Baso # (Auto) 0.1 WBC Differential . Differential Comment Auto diff final Lab - Chemistry Results 05/01/18 05/01/18 05/01/18 11:44 16:50 19:29 Sodium Potassium Chloride Carbon Dioxide Anion Gap BUN Creatinine Estimated GFR POC Glucose 134 H 181 H 227 H Random Glucose Calcium Phosphorus Magnesium 05/02/18 05/02/18 05/02/18 06:40 08:13 11:46 Sodium 136 Potassium 3.6 Chloride 96 L Carbon Dioxide 27.4 Anion Gap 13 BUN 53 H Creatinine 9.17 H Estimated GFR 6 L POC Glucose 143 H 101 Random Glucose 120 H Calcium 9.2 Phosphorus 6.6 H Magnesium 2.5 05/02/18 05/02/18 05/03/18 16:55 20:23 07:43 Sodium Potassium Chloride Carbon Dioxide Anion Gap BUN Creatinine Estimated GFR POC Glucose 227 H 187 H 132 H Random Glucose Calcium Phosphorus Magnesium Imaging: ITS Impressions Chest CTA 04/12/18 00:00 CONCLUSION: 1. No CT evidence for pulmonary artery embolism as questioned. 2. Cardiomegaly with trace bilateral pleural effusions and mild airspace consolidation at the lung bases which may reflect compressive atelectasis. Differential considerations include aspiration in the appropriate clinical setting. 3. Trace perihepatic ascites fluid. Venous Doppler Study 04/24/18 00:00 CONCLUSION: 1. The study is negative for upper extremity deep venous thrombosis. Chest X-Ray 05/02/18 14:28 CONCLUSION: Cardiomegaly without overt failure Minimal parenchymal changes left base Physical Exam: GENERAL: Well-nourished well-developed, not in acute distress SKIN: Cool and dry, no generalized rash HEAD: Atraumatic. Normocephalic. No temporal or scalp tenderness. EYES: Pupils equal round and reactive. Scleral icterus. No injection or drainage. No petechia ENT: Nothing abnormal detected NECK: Trachea midline. Supple, nontender, no meningeal signs. CARDIOVASCULAR: HS audible. RESPIRATORY: Basilar crackles. GASTROINTESTINAL: Abdomen soft nontender. MUSCULOSKELETAL: Extremities without clubbing, cyanosis. Left upper extremity forearm AV fistula site with no evidence of infection. Bruit audible and thrill palpable. Right upper extremity AC fossa area dressing in place. NEUROLOGICAL: Alert oriented 3. Nonfocal. Psych cooperative IV line sites ok. Assessment and Plan - Plan Possible Septic thrombophlebitis ESRD on HD Left AV fistula functional h/o asystole during anaesthesia for Colonoscopy. Recs Continue Vanco IV in HD. CXR stat. ryan Pagan patient short of breath with basilar crackles. On O2 2L at baseline no oxygen at home. 1 day of last week patient reportedly did not complete duration of HD per will likely need another session HD tomorrow. ryan Pagan will be able to get patient to HD center for Vanco IV on designated days so he can still do Home HD and get HD. Follow cultures Follow clinical course. ryan Redd
[2018-05-03] MEDS: hydrALAZINE 25 MG Tablet PO SCH ×3 (09:24→21:43)
[2018-05-03] MEDS: Vitamin B Complex/Vit C/Folic Tablet PO SCH (09:24)
[2018-05-03] MEDS: predniSONE 5 MG Tablet PO SCH (09:24)
[2018-05-03] MEDS: Calcitriol 0.25 MCG Capsule PO SCH (09:25)
[2018-05-03] MEDS: Pantoprazole Inj 40 MG Vial IV.PUSH SCH (09:25)
[2018-05-03] MEDS: dilTIAZem CD 240 MG Capsule PO SCH (09:25)
[2018-05-03] MEDS: Senna/Docusate Sodium 8.6/50 MG Tablet PO SCH ×2 (09:38→21:44)
--- NOTE | 2018-05-03 11:47 | P.PNNP ---
Subjective Interval history: Patient was seen, no distress, complaints of SOB. Patient was dialyzed yesterday , 4 L removed. Patient will be dialyzed again today. <Leeann Mcgarry - Last Filed: 05/03/18 11:43> Physical Exam Vital signs: Vital Signs 05/02/18 12:00 05/02/18 15:50 05/02/18 16:00 Temperature 98.5 F 98.3 F Pulse Rate 98 H 53 L 108 H Respiratory Rate 18 20 18 Blood Pressure 151/91 H 109/58 L Pulse Oximetry 96 96 05/02/18 18:18 05/02/18 19:59 05/02/18 20:00 Temperature 97.9 F Pulse Rate 96 H 97 H Respiratory Rate 20 16 Blood Pressure 116/57 L Pulse Oximetry 96 94 L 95 05/03/18 00:00 05/03/18 00:24 05/03/18 04:00 Temperature 98.1 F 97.7 F Pulse Rate 98 H 109 H 92 H Respiratory Rate 16 20 17 Blood Pressure 115/62 110/52 L Pulse Oximetry 97 98 05/03/18 04:44 05/03/18 08:00 05/03/18 09:35 Temperature 98.3 F Pulse Rate 83 92 H 97 H Respiratory Rate 18 18 22 Blood Pressure 138/53 L Pulse Oximetry 95 98 05/03/18 10:04 Temperature Pulse Rate Respiratory Rate 18 Blood Pressure Pulse Oximetry Intake & Output 05/02/18 05/03/18 05/03/18 18:59 06:59 18:59 Intake Total 810 / 810 240 / 240 Output Total 4000 / 4000 200 / 200 Balance -3190 / -3190 40 / 40 Weight 116.6 kg Intake: IV 250 / 250 Vancomycin Inj 1,250 MG In NS 250 / 250 Inj 250 ML @ 250 mls/hr IV.SIG WITH DIALYSIS PRN Rx#:[id number] Oral 560 / 560 240 / 240 Output: Urine 200 / 200 Hemodialysis Amount 4000 / 4000 Other: Date of Last Bowel Movement 05/01/18 05/02/18 05/02/18 # Bowel Movements 1 Narrative: GENERAL:NAD, obese middle-aged white male. SKIN: Warm and dry. HEAD: Atraumatic. Normocephalic. EYES: Pupils equal and round. No scleral icterus. No injection or drainage. ENT: No nasal bleeding or discharge. Mucous membranes pink and moist. NECK: Trachea midline. No JVD. CARDIOVASCULAR: Regular rate and rhythm. RESPIRATORY: Breath sounds diminished at bases. With wheezing. GASTROINTESTINAL: Abdomen soft, non-tender, nondistended. MUSCULOSKELETAL: Dressing over the right arm. Bilateral lower extremity edema. NEUROLOGICAL: Awake and alert. No obvious cranial nerve deficits. Motor grossly within normal limits. PSYCHIATRIC: Appropriate mood and affect. <Leeann Mcgarry - Last Filed: 05/03/18 11:43> Vital signs: Vital Signs 05/03/18 00:00 05/03/18 00:24 05/03/18 04:00 Temperature 98.1 F 97.7 F Pulse Rate 98 H 109 H 92 H Respiratory Rate 16 20 17 Blood Pressure 115/62 110/52 L Pulse Oximetry 97 98 05/03/18 04:44 05/03/18 08:00 05/03/18 09:35 Temperature 98.3 F Pulse Rate 83 96 H 97 H Respiratory Rate 18 18 22 Blood Pressure 138/53 L Pulse Oximetry 95 98 05/03/18 10:04 05/03/18 12:00 05/03/18 15:06 Temperature Pulse Rate 93 H 94 H Respiratory Rate 18 22 Blood Pressure Pulse Oximetry 05/03/18 16:00 05/03/18 16:52 05/03/18 19:45 Temperature 98.6 F Pulse Rate 98 H 104 H 74 Respiratory Rate 16 Blood Pressure 168/68 H Pulse Oximetry 98 05/03/18 20:00 05/03/18 20:47 Temperature 98.8 F 97.8 F Pulse Rate 95 H 93 H Respiratory Rate 16 17 Blood Pressure 131/79 115/54 L Pulse Oximetry 97 98 Intake & Output 05/03/18 05/03/18 05/04/18 06:59 18:59 06:59 Intake Total 240 / 240 Output Total 200 / 200 100 / 100 Balance 40 / 40 -100 / -100 Weight 116.6 kg Intake: Oral 240 / 240 Output: Urine 200 / 200 100 / 100 Other: Date of Last Bowel Movement 05/02/18 05/02/18 <Tramaine Dixon - Last Filed: 05/03/18 21:46> Assessment and Plan - Assessment (1) End stage renal disease Code(s): N18.6 - End stage renal disease Status: Acute Plan: Patient with ESRD, on Home HD. Patient getting dialysis MWF while hospitalized, patient dialyzed yesterday, 4 L removed. Patient to be dialyzed again today to assist in fluid removal. Avoid Gadolinium. Monitor fluid and electrolytes. (2) Hypertension Code(s): I10 - Essential (primary) hypertension Status: Acute Qualifiers: Hypertension type: essential hypertension Qualified Code(s): I10 - Essential (primary) hypertension Plan: Continue to monitor. Patient on Hydralazine and Cardizem. 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 (4) Cardiopulmonary arrest with successful resuscitation Code(s): I46.9 - Cardiac arrest, cause unspecified Status: Acute Plan: s/p cardiac cath. (5) Metabolic bone disease Code(s): E88.9 - Metabolic disorder, unspecified; M90.80 - Osteopathy in diseases classified elsewhere, unspecified site Status: Acute Plan: Sensipar has been held due to hypocalcemia. PTH level 1954, patient on Calcitriol 0.5 mcg po daily. Monitor phosphorus intermittently, he is on Renvela. Phos 6.6 . (6) Thrombophlebitis arm Code(s): I80.8 - Phlebitis and thrombophlebitis of other sites Status: Acute Plan: s/p I&D. Patient on Vanco. (7) Anemia Code(s): D64.9 - Anemia, unspecified Status: Acute Plan: Continue Epogen with dialysis. Blood transfusion if necessary. 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 Agree with above assessment and plan. <Tramaine Dixon - Last Filed: 05/03/18 21:46>
--- NOTE | 2018-05-03 12:25 | P.PN ---
Subjective Interval history: Being dialyzed today. Stable on O2 2 L nasal cannula Chest x-ray yesterday shows minimal left basilar infiltrate. No significant pulmonary edema On antibiotics per ID. Use CPAP at night and seems to be doing better. Physical Exam Vital signs: Vital Signs 05/02/18 15:50 05/02/18 16:00 05/02/18 18:18 Temperature 98.3 F Pulse Rate 53 L 108 H Respiratory Rate 20 18 Blood Pressure 109/58 L Pulse Oximetry 96 96 05/02/18 19:59 05/02/18 20:00 05/03/18 00:00 Temperature 97.9 F 98.1 F Pulse Rate 96 H 97 H 98 H Respiratory Rate 20 16 16 Blood Pressure 116/57 L 115/62 Pulse Oximetry 94 L 95 97 05/03/18 00:24 05/03/18 04:00 05/03/18 04:44 Temperature 97.7 F Pulse Rate 109 H 92 H 83 Respiratory Rate 20 17 18 Blood Pressure 110/52 L Pulse Oximetry 98 05/03/18 08:00 05/03/18 09:35 05/03/18 10:04 Temperature 98.3 F Pulse Rate 92 H 97 H Respiratory Rate 18 22 18 Blood Pressure 138/53 L Pulse Oximetry 95 98 Intake & Output 05/02/18 05/03/18 05/03/18 18:59 06:59 18:59 Intake Total 810 / 810 240 / 240 Output Total 4000 / 4000 200 / 200 Balance -3190 / -3190 40 / 40 Weight 116.6 kg Intake: IV 250 / 250 Vancomycin Inj 1,250 MG In NS 250 / 250 Inj 250 ML @ 250 mls/hr IV.SIG WITH DIALYSIS PRN Rx#:[id number] Oral 560 / 560 240 / 240 Output: Urine 200 / 200 Hemodialysis Amount 4000 / 4000 Other: Date of Last Bowel Movement 05/01/18 05/02/18 05/02/18 # Bowel Movements 1 Narrative: GENERAL:NAD, obese middle-aged white male. SKIN: Warm and dry. HEAD: Atraumatic. Normocephalic. EYES: Pupils equal and round. No scleral icterus. No injection or drainage. ENT: No nasal bleeding or discharge. Mucous membranes pink and moist. NECK: Trachea midline. No JVD. CARDIOVASCULAR: Regular rate and rhythm. RESPIRATORY: Breath sounds diminished at bases. Occasional wheezing. GASTROINTESTINAL: Abdomen soft, non-tender, nondistended. MUSCULOSKELETAL: Dressing over the right arm. Bilateral lower extremity edema. NEUROLOGICAL: Awake and alert. No obvious cranial nerve deficits. Motor grossly within normal limits. PSYCHIATRIC: Appropriate mood and affect. Results - Labs CBC & Chem 7: 05/02/18 06:40 05/02/18 06:40 Laboratory Results - last 24 hr 05/02/18 05/02/18 05/03/18 16:55 20:23 07:43 POC Glucose 227 H 187 H 132 H - Imaging Impressions Chest X-Ray 05/02/18 14:28 CONCLUSION: Cardiomegaly without overt failure Minimal parenchymal changes left base Assessment and Plan - Assessment (1) Respiratory failure Code(s): J96.90 - Respiratory failure, unspecified, unspecified whether with hypoxia or hypercapnia Status: Acute (2) Metabolic bone disease Code(s): E88.9 - Metabolic disorder, unspecified; M90.80 - Osteopathy in diseases classified elsewhere, unspecified site Status: Acute (3) Supraventricular arrhythmia Code(s): I49.9 - Cardiac arrhythmia, unspecified Status: Acute (4) End stage renal disease Code(s): N18.6 - End stage renal disease Status: Acute (5) Hypertension Code(s): I10 - Essential (primary) hypertension Status: Acute (6) Diabetes Code(s): E11.9 - Type 2 diabetes mellitus without complications Status: Acute (7) End stage renal disease on dialysis Code(s): N18.6 - End stage renal disease; Z99.2 - Dependence on renal dialysis Status: Acute (8) Cardiopulmonary arrest with successful resuscitation Code(s): I46.9 - Cardiac arrest, cause unspecified Status: Acute (9) End stage renal disease on dialysis Code(s): N18.6 - End stage renal disease; Z99.2 - Dependence on renal dialysis Status: Acute - Plan 1 Continue O2 2 L N /C daytime 2. Use CPAP at bedtime and may use home CPAP 3. Incentive spirometry every 2 hours bedside 4. Continue antibiotics as ordered 5. DuoNeb nebs 4 times daily. 6. Arrange home O2 at 2 L 7. CBC BMP in a.m. 8. PT for activity 9. 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
--- NOTE | 2018-05-03 12:31 | P.PNIM ---
Subjective Interval history: pt in HD productive cough. Physical Exam Vital signs: Last Vital Signs Temp 98.3 F 05/03/18 08:00 Pulse 97 H 05/03/18 09:35 Resp 18 05/03/18 10:04 BP 138/53 L 05/03/18 08:00 Pulse Ox 98 05/03/18 09:35 Narrative: GENERAL: This is a well-nourished, well-developed patient, in no apparent distress. CARDIOVASCULAR: regular RESPIRATORY: course bs dirk. GASTROINTESTINAL: Abdomen soft, non-tender, nondistended. Normal active bowel sounds MUSCULOSKELETAL: edema improved NEURO: Alert & Oriented x4 to person, place, time, situation. Moves all ext x4 Results Labs CBC & Chem 7: 05/02/18 06:40 05/02/18 06:40 Assessment and Plan Assessment (1) End stage renal disease: Code(s): N18.6 - End stage renal disease Status: Acute (2) Hypertension: Code(s): I10 - Essential (primary) hypertension Status: Acute (3) Diabetes: Code(s): E11.9 - Type 2 diabetes mellitus without complications Status: Acute Plan: 1) Cardiopulmonary Arrest with successful recussitation - patient was having a routine colonoscopy and while being sedated he had an asystolic episode. - He received 2 rounds of epinephrine and chest compressions were performed. - He was initially intubated on arrival to the ER and then subsequently was extubated. - On April 15 patient again started having respiratory distress and was intubated again. - Patient was extubated on April 21, 2017 and has been doing well. - [facility] (04/25/18) with Dr. Ramos Arredondo - Successful percutaneous coronary intervention with drug-eluting stent to the mid body of the saphenous vein graft to diagonal branch. - ASA, plavix, imdur, lipitor 2) Septic Thrombophlebitis - comgmt with Vascular Surgery and Infectious Disease - Pt taken to the OR by Dr. Meade. & underwent excision of the antecubital veins and a portion of the basilic vein on the right with tissue cultures, irrigation and packing. - Case d/w Dr. Meade (04/27/18) - Zosyn stopped - [facility] (04/25 - 04/29) - Vancomycin on HD days - planning vanco at HD center after dc 3) Afib - off IV cardizem - change PO cardizem to long acting 3) ESRD on HD - HD W,, Wednesday per Dr. Vasquez -Pt still volume overloaded. getting extra HD today. 4) DM2 - SSI 5) Anemia recheck in AM getting epogen might need blood tomorrow with HD (4) Cardiopulmonary arrest with successful resuscitation: Code(s): I46.9 - Cardiac arrest, cause unspecified Status: Acute (5) Metabolic bone disease: Code(s): E88.9 - Metabolic disorder, unspecified; M90.80 - Osteopathy in diseases classified elsewhere, unspecified site Status: Acute (6) Thrombophlebitis arm: Code(s): I80.8 - Phlebitis and thrombophlebitis of other sites Status: Acute (7) Anemia: Code(s): D64.9 - Anemia, unspecified Status: Acute Plan 1) Cardiopulmonary Arrest with successful recussitation - patient was having a routine colonoscopy and while being sedated he had an asystolic episode. - He received 2 rounds of epinephrine and chest compressions were performed. - He was initially intubated on arrival to the ER and then subsequently was extubated. - On April 15 patient again started having respiratory distress and was intubated again. - Patient was extubated on April 21, 2017 and has been doing well. - [facility] (04/25/18) with Dr. Ramos Arredondo - Successful percutaneous coronary intervention with drug-eluting stent to the mid body of the saphenous vein graft to diagonal branch. - ASA, plavix, imdur, lipitor 2) Septic Thrombophlebitis - comgmt with Vascular Surgery and Infectious Disease - Pt taken to the OR by Dr. Meade. & underwent excision of the antecubital veins and a portion of the basilic vein on the right with tissue cultures, irrigation and packing. - Case d/w Dr. Meade (04/27/18) - Zosyn stopped - Vancomycin stopped 04/24 - [facility] (04/25 - present) - surgical cultures and pathology are pending 3) Atrial Fibrillation - IV Cardizem stopped - PO Cardizem 4) ESRD on HD - HD ,, Wednesday per Dr. 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
[2018-05-03 16:20] LABS: Baso % (Auto) 0.6 % (0.0-2.0); Eos # (Auto) 0.1 th/mm3 (0.0-0.4); Eos % (Auto) 1.2 % (0.0-4.0); Hematocrit 24.3 % (39.0-51.0); Hemoglobin 7.7 gm/dL (13.0-17.0); Lymph # (Auto) 0.7 th/mm3 (1.0-4.8); Lymph % (Auto) 8.3 % (9.0-44.0); Mean Corpuscular HGB Conc 31.8 % (32.0-36.0); Mean Corpuscular Hemoglobin 27.5 pg (27.0-34.0); Mean Corpuscular Volume 86.6 fL (80.0-100.0); Mean Platelet Volume 7.9 fL (7.0-11.0); Mono # (Auto) 0.5 th/mm3 (0.0-0.9); Mono % (Auto) 6.3 % (0.0-8.0); Neut % (Auto) 83.6 % (16.0-70.0); Platelet Count 159 th/mm3 (150-450); Red Blood Count 2.81 mil/mm3 (4.50-5.90); Red Cell Distribution Width 17.9 % (11.6-17.2); White Blood Count 8.4 th/mm3 (4.0-11.0)
[2018-05-03 16:38] LABS: Calcium 9.4 mg/dL (8.5-10.1); Carbon Dioxide 29.4 meq/L (21.0-32.0); Potassium 3.5 meq/L (3.5-5.1)
[2018-05-04] MEDS: Isosorbide Mononitrate 60 MG ER 24HR Tablet (Imdur) PO SCH (06:49)
--- NOTE | 2018-05-04 08:59 | P.PNNP ---
Subjective Interval history: Had an extra dialysis treatment yesterday for fluid removal: he had 4 liters removed yesterday in dialysis. Having dialysis again today, seen at dialysis. Physical Exam Vital signs: Vital Signs 05/03/18 09:35 05/03/18 10:04 05/03/18 12:00 Temperature Pulse Rate 97 H 93 H Respiratory Rate 22 18 Blood Pressure Pulse Oximetry 98 05/03/18 15:06 05/03/18 16:00 05/03/18 16:52 Temperature 98.6 F Pulse Rate 94 H 98 H 104 H Respiratory Rate 22 Blood Pressure 168/68 H Pulse Oximetry 98 05/03/18 19:45 05/03/18 20:00 05/03/18 20:47 Temperature 98.8 F 97.8 F Pulse Rate 74 94 H 93 H Respiratory Rate 16 16 17 Blood Pressure 131/79 115/54 L Pulse Oximetry 97 98 05/04/18 00:00 05/04/18 03:53 05/04/18 04:00 Temperature 98.6 F 98.9 F Pulse Rate 82 99 H Respiratory Rate 16 16 16 Blood Pressure 132/71 145/52 H Pulse Oximetry 97 98 Intake & Output 05/03/18 05/04/18 05/04/18 18:59 06:59 18:59 Output Total 4100 / 4100 600 / 600 Balance -4100 / -4100 -600 / -600 Output: Urine 100 / 100 600 / 600 Hemodialysis Amount 4000 / 4000 Other: Date of Last Bowel Movement 05/02/18 05/02/18 Narrative: GENERAL:NAD, obese middle-aged white male. SKIN: Warm and dry. HEAD: Atraumatic. Normocephalic. EYES: Pupils equal and round. No scleral icterus. No injection or drainage. ENT: No nasal bleeding or discharge. Mucous membranes pink and moist. NECK: Trachea midline. No JVD. CARDIOVASCULAR: Regular rate and rhythm. RESPIRATORY: Breath sounds diminished at bases. Occasional wheezing. GASTROINTESTINAL: Abdomen soft, non-tender, nondistended. MUSCULOSKELETAL: Dressing over the right arm. Bilateral lower extremity edema. NEUROLOGICAL: Awake and alert. No obvious cranial nerve deficits. Motor grossly within normal limits. PSYCHIATRIC: Appropriate mood and affect. Assessment and Plan - Assessment (1) End stage renal disease Code(s): N18.6 - End stage renal disease Status: Acute Plan: Patient with ESRD, on Home HD. Patient getting dialysis MWF while hospitalized, had an extra dialysis yesterday , will be dialyzed MWF from today. Avoid Gadolinium. Monitor fluid and electrolytes. (2) Hypertension Code(s): I10 - Essential (primary) hypertension Status: Acute Qualifiers: Hypertension type: essential hypertension Qualified Code(s): I10 - Essential (primary) hypertension Plan: Continue to monitor. Patient on Hydralazine and Cardizem. (3) Diabetes Code(s): E11.9 - Type 2 diabetes mellitus without complications Status: Acute Qualifiers: Diabetes mellitus intermediate insulin use: unspecified roasterman insulin use status Plan: Monitor blood glucose.Insulin coverage to maintain blood glucose levels between 140 and 180 while hospitalized. (4) Cardiopulmonary arrest with successful resuscitation Code(s): I46.9 - Cardiac arrest, cause unspecified Status: Acute Plan: s/p cardiac cath. (5) Metabolic bone disease Code(s): E88.9 - Metabolic disorder, unspecified; M90.80 - Osteopathy in diseases classified elsewhere, unspecified site Status: Acute Plan: Sensipar has been held due to hypocalcemia. PTH level 1954, patient on Calcitriol 0.5 mcg po daily. Monitor phosphorus intermittently, he is on Renvela. Phos 6.6 . (6) Thrombophlebitis arm Code(s): I80.8 - Phlebitis and thrombophlebitis of other sites Status: Acute Plan: s/p I&D. Patient on Vancomycin. (7) Anemia Code(s): D64.9 - Anemia, unspecified Status: Acute Plan: Continue Epogen with dialysis. Blood transfusion if necessary.
[2018-05-04 09:26] LABS: Baso # (Auto) 0.1 th/mm3 (0.0-0.2); Baso % (Auto) 0.6 % (0.0-2.0); Eos # (Auto) 0.2 th/mm3 (0.0-0.4); Eos % (Auto) 1.8 % (0.0-4.0); Hematocrit 22.5 % (39.0-51.0); Hemoglobin 7.3 gm/dL (13.0-17.0); Lymph # (Auto) 1.1 th/mm3 (1.0-4.8); Lymph % (Auto) 12.8 % (9.0-44.0); Mean Corpuscular HGB Conc 32.3 % (32.0-36.0); Mean Corpuscular Hemoglobin 28.1 pg (27.0-34.0); Mean Corpuscular Volume 86.9 fL (80.0-100.0); Mean Platelet Volume 8.3 fL (7.0-11.0); Mono # (Auto) 0.7 th/mm3 (0.0-0.9); Mono % (Auto) 8.9 % (0.0-8.0); Neut # (Auto) 6.3 th/mm3 (1.8-7.7); Neut % (Auto) 75.9 % (16.0-70.0); Platelet Count 151 th/mm3 (150-450); Red Blood Count 2.59 mil/mm3 (4.50-5.90); Red Cell Distribution Width 17.9 % (11.6-17.2); White Blood Count 8.3 th/mm3 (4.0-11.0)
[2018-05-04] MEDS: Insulin NovoLIN Regular Correctional Sugar Inj SQ SCH ×4 (10:19→21:33)
[2018-05-04] MEDS: Vancomycin Inj 1,250 MG in Sodium Chlor 0.9% Inj 250 ML IV.SIG PRN (10:32)
[2018-05-04] MEDS: Gelatin 12 MM/7 MM Topical Foam TOPICAL PRN (11:25)
--- NOTE | 2018-05-04 12:17 | P.PNIM ---
Subjective Interval history: pt breathing better. Physical Exam Vital signs: Last Vital Signs Temp 98.5 F 05/04/18 08:03 Pulse 90 05/04/18 08:03 Resp 20 05/04/18 08:03 BP 120/56 L 05/04/18 08:03 Pulse Ox 98 05/04/18 08:03 Narrative: GENERAL: This is a well-nourished, well-developed patient, in no apparent distress. CARDIOVASCULAR: regular RESPIRATORY: course bs dirk. GASTROINTESTINAL: Abdomen soft, non-tender, nondistended. Normal active bowel sounds MUSCULOSKELETAL: edema improved NEURO: Alert & Oriented x4 to person, place, time, situation. Moves all ext x4 Results Labs CBC & Chem 7: 05/04/18 07:19 05/03/18 16:02 Assessment and Plan Assessment (1) End stage renal disease: Code(s): N18.6 - End stage renal disease Status: Acute (2) Hypertension: Code(s): I10 - Essential (primary) hypertension Status: Acute (3) Diabetes: Code(s): E11.9 - Type 2 diabetes mellitus without complications Status: Acute Plan: 1) Cardiopulmonary Arrest with successful recussitation - patient was having a routine colonoscopy and while being sedated he had an asystolic episode. - He received 2 rounds of epinephrine and chest compressions were performed. - He was initially intubated on arrival to the ER and then subsequently was extubated. - On April 15 patient again started having respiratory distress and was intubated again. - Patient was extubated on April 21, 2017 and has been doing well. - [facility] (04/25/18) with Dr. Ramos Arredondo - Successful percutaneous coronary intervention with drug-eluting stent to the mid body of the saphenous vein graft to diagonal branch. - ASA, plavix, imdur, lipitor 2) Septic Thrombophlebitis - comgmt with Vascular Surgery and Infectious Disease - Pt taken to the OR by Dr. Meade. & underwent excision of the antecubital veins and a portion of the basilic vein on the right with tissue cultures, irrigation and packing. - Case d/w Dr. Meade (04/27/18) - Zosyn stopped - Zyvox (04/25 - 04/29) - Vancomycin on HD days - Discussed with Dr Blair. Diffucult to dose vanco given the way pt gets his outpt hemodialysis at home. She is recommending zyvoxx. 3) Afib - off IV cardizem - change PO cardizem to long acting 3) ESRD on HD - HD ,, Wednesday per Dr. Vasquez -Pt still volume overloaded. getting extra HD today. 4) DM2 - SSI 5) Anemia monitor getting epogen prbc with HD as needed. (4) Cardiopulmonary arrest with successful resuscitation: Code(s): I46.9 - Cardiac arrest, cause unspecified Status: Acute (5) Metabolic bone disease: Code(s): E88.9 - Metabolic disorder, unspecified; M90.80 - Osteopathy in diseases classified elsewhere, unspecified site Status: Acute (6) Thrombophlebitis arm: Code(s): I80.8 - Phlebitis and thrombophlebitis of other sites Status: Acute (7) Anemia: Code(s): D64.9 - Anemia, unspecified Status: Acute Plan 1) Cardiopulmonary Arrest with successful recussitation - patient was having a routine colonoscopy and while being sedated he had an asystolic episode. - He received 2 rounds of epinephrine and chest compressions were performed. - He was initially intubated on arrival to the ER and then subsequently was extubated. - On April 15 patient again started having respiratory distress and was intubated again. - Patient was extubated on April 21, 2017 and has been doing well. - [facility] (04/25/18) with Dr. Ramos Arredondo - Successful percutaneous coronary intervention with drug-eluting stent to the mid body of the saphenous vein graft to diagonal branch. - ASA, plavix, imdur, lipitor 2) Septic Thrombophlebitis - comgmt with Vascular Surgery and Infectious Disease - Pt taken to the OR by Dr. Meade. & underwent excision of the antecubital veins and a portion of the basilic vein on the right with tissue cultures, irrigation and packing. - Case d/w Dr. Meade (04/27/18) - Zosyn stopped - Vancomycin stopped 04/24 - Zyvox (04/25 - present) - surgical cultures and pathology are pending 3) Atrial Fibrillation - IV Cardizem stopped - PO Cardizem 4) ESRD on HD - HD ,, Wednesday per Dr. Vasquez 5) DM2 - SSI Progress Note: Quality VTE Deep Vein Thrombosis/Pulmonary Embolism Present on Admission: No _ (1) Hypertension Qualifiers: Hypertension type: essential hypertension Qualified Code(s): I10 - Essential (primary) hypertension (2) Diabetes Qualifiers: Diabetes mellitus type: Diabetes mellitus custodial insulin use: unspecified custodial insulin use status Diabetes mellitus complication status : Diabetes mellitus complication detail: Diabetic retinopathy severity: Proliferative retinopathy type: Diabetes mellitus macular edema: Laterality : Chronic kidney disease stage: (3) Anemia Qualifiers: Anemia type: Iron deficiency anemia type: Vitamin B12 deficiency anemia type: Folate deficiency anemia type: Bone marrow failure anemia type: Hemolytic anemia type: Other causes of anemia: Chronic kidney disease stage :
[2018-05-04] MEDS: Senna/Docusate Sodium 8.6/50 MG Tablet PO SCH ×2 (12:40→21:34)
[2018-05-04] MEDS: Calcitriol 0.25 MCG Capsule PO SCH (12:46)
[2018-05-04] MEDS: Vitamin B Complex/Vit C/Folic Tablet PO SCH (12:46)
[2018-05-04] MEDS: dilTIAZem CD 240 MG Capsule PO SCH (12:46)
[2018-05-04] MEDS: predniSONE 5 MG Tablet PO SCH (12:47)
[2018-05-04] MEDS: hydrALAZINE 25 MG Tablet PO SCH ×3 (12:47→17:45)
[2018-05-04] MEDS: Pantoprazole Inj 40 MG Vial IV.PUSH SCH (12:47)
--- NOTE | 2018-05-04 13:09 | P.PNADD ---
Addendum to Inpatient Note Reason for Addendum: Additional Documentation Additional information: ryan Stanton all infected vein segments excised. Discontinue Vanco IV as dosing is an issue with this patient not being on scheduled dialysis in hospital and at home. ryan Whitley. Will change to oral zyvox recommend stop date: 05/12/2018. Will sign off please call back if any change in clinical condition or questions.
--- NOTE | 2018-05-04 13:41 | P.PN ---
Subjective Interval history: Sitting up and breathing easier. Was dialyzed today On O2 2 L. Uses CPAP nightly. Physical Exam Vital signs: Vital Signs 05/03/18 15:06 05/03/18 16:00 05/03/18 16:52 Temperature 98.6 F Pulse Rate 94 H 98 H 104 H Respiratory Rate 22 Blood Pressure 168/68 H Pulse Oximetry 98 05/03/18 19:45 05/03/18 20:00 05/03/18 20:47 Temperature 98.8 F 97.8 F Pulse Rate 74 94 H 93 H Respiratory Rate 16 16 17 Blood Pressure 131/79 115/54 L Pulse Oximetry 97 98 05/04/18 00:00 05/04/18 03:53 05/04/18 04:00 Temperature 98.6 F 98.9 F Pulse Rate 82 99 H Respiratory Rate 16 16 16 Blood Pressure 132/71 145/52 H Pulse Oximetry 97 98 05/04/18 08:03 05/04/18 12:39 Temperature 98.5 F Pulse Rate 90 103 H Respiratory Rate 20 18 Blood Pressure 120/56 L Pulse Oximetry 98 98 Intake & Output 05/03/18 05/04/18 05/04/18 18:59 06:59 18:59 Output Total 4100 / 4100 600 / 600 6000 / 6000 Balance -4100 / -4100 -600 / -600 -6000 / -6000 Output: Urine 100 / 100 600 / 600 Hemodialysis Amount 4000 / 4000 6000 / 6000 Other: Date of Last Bowel Movement 05/02/18 05/02/18 Narrative: GENERAL: obese middle-aged white male. SKIN: Warm and dry. HEAD: Atraumatic. Normocephalic. EYES: Pupils equal and round. No scleral icterus. No injection or drainage. ENT: No nasal bleeding or discharge. Mucous membranes pink and moist. NECK: Trachea midline. No JVD. CARDIOVASCULAR: Regular rate and rhythm. RESPIRATORY: Breath sounds diminished at bases. Bilateral wheezing. GASTROINTESTINAL: Abdomen soft, non-tender, nondistended. MUSCULOSKELETAL: Dressing over the right arm. Bilateral lower extremity edema. NEUROLOGICAL: Awake and alert. Motor grossly within normal limits. PSYCHIATRIC: Appropriate mood and affect. Results - Labs CBC & Chem 7: 05/04/18 07:19 05/03/18 16:02 Laboratory Results - last 24 hr 05/03/18 05/03/18 05/03/18 14:18 16:02 16:02 WBC 8.4 RBC 2.81 L Hgb 7.7 L Hct 24.3 L MCV 86.6 MCH 27.5 MCHC 31.8 L RDW 17.9 H Plt Count 159 MPV 7.9 Neut % (Auto) 83.6 H Lymph % (Auto) 8.3 L [place] % (Auto) 6.3 Eos % (Auto) 1.2 Baso % (Auto) 0.6 Neut # (Auto) 7.0 Lymph # (Auto) 0.7 L [place] # (Auto) 0.5 Eos # (Auto) 0.1 Baso # (Auto) 0.0 WBC Differential . Differential Comment Auto diff final Sodium 141 Potassium 3.5 Chloride 101 Carbon Dioxide 29.4 Anion Gap 11 BUN 22 H Creatinine 4.91 H Estimated GFR 12 L POC Glucose 147 H Random Glucose 232 H D Calcium 9.4 05/03/18 05/03/18 05/04/18 16:57 20:52 07:19 WBC 8.3 RBC 2.59 L Hgb 7.3 L Hct 22.5 L MCV 86.9 MCH 28.1 MCHC 32.3 RDW 17.9 H Plt Count 151 MPV 8.3 Neut % (Auto) 75.9 H Lymph % (Auto) 12.8 [place] % (Auto) 8.9 H Eos % (Auto) 1.8 Baso % (Auto) 0.6 Neut # (Auto) 6.3 Lymph # (Auto) 1.1 [place] # (Auto) 0.7 Eos # (Auto) 0.2 Baso # (Auto) 0.1 WBC Differential . Differential Comment Auto diff final Sodium Potassium Chloride Carbon Dioxide Anion Gap BUN Creatinine Estimated GFR POC Glucose 215 H 175 H Random Glucose Calcium 05/04/18 07:20 WBC RBC Hgb Hct MCV MCH MCHC RDW Plt Count MPV Neut % (Auto) Lymph % (Auto) [place] % (Auto) Eos % (Auto) Baso % (Auto) Neut # (Auto) Lymph # (Auto) [place] # (Auto) Eos # (Auto) Baso # (Auto) WBC Differential Differential Comment Sodium Potassium Chloride Carbon Dioxide Anion Gap BUN Creatinine Estimated GFR POC Glucose 124 H Random Glucose Calcium Microbiology 04/26/18 14:52 Other Fungal Smear - Final No fungal elements seen 04/26/18 14:52 Other Fungal Culture - Preliminary No growth in 1 week 04/26/18 14:52 Tissue - Other Acid Fast Bacilli Smear - Final No acid fast bacilli seen 04/26/18 14:52 Tissue - Other Mycobacterial Culture - Preliminary No growth in 1 week Assessment and Plan - Assessment (1) Respiratory failure Code(s): J96.90 - Respiratory failure, unspecified, unspecified whether with hypoxia or hypercapnia Status: Acute (2) Metabolic bone disease Code(s): E88.9 - Metabolic disorder, unspecified; M90.80 - Osteopathy in diseases classified elsewhere, unspecified site Status: Acute (3) Supraventricular arrhythmia Code(s): I49.9 - Cardiac arrhythmia, unspecified Status: Acute (4) End stage renal disease Code(s): N18.6 - End stage renal disease Status: Acute (5) Hypertension Code(s): I10 - Essential (primary) hypertension Status: Acute (6) Diabetes Code(s): E11.9 - Type 2 diabetes mellitus without complications Status: Acute (7) End stage renal disease on dialysis Code(s): N18.6 - End stage renal disease; Z99.2 - Dependence on renal dialysis Status: Acute (8) Cardiopulmonary arrest with successful resuscitation Code(s): I46.9 - Cardiac arrest, cause unspecified Status: Acute (9) End stage renal disease on dialysis Code(s): N18.6 - End stage renal disease; Z99.2 - Dependence on renal dialysis Status: Acute - Plan 1 Continue O2 2 L N /C daytime and at bedtime 2. Use CPAP at bedtime and may use home CPAP 3. Incentive spirometry every 2 hours bedside 4. Continue antibiotics as ordered 5. DuoNeb nebs 4 times daily. 6. Arrange home O2 at 2 L 7. CBC BMP in a.m. 8. PT for activity 9. Rehab placement (5) Hypertension Qualifiers: Hypertension type: essential hypertension Qualified Code(s): I10 - Essential (primary) hypertension (6) Diabetes Qualifiers: Diabetes mellitus mcc insulin use: unspecified mcc insulin use status
[2018-05-04] MEDS: Linezolid 600 MG Tablet PO SCH ×2 (15:34→21:32)
[2018-05-04] MEDS ORDERED: Metoprolol Tartrate 25 MG Tablet PO SCH (23:45)
[2018-05-05] MEDS: Isosorbide Mononitrate 60 MG ER 24HR Tablet (Imdur) PO SCH (07:11)
--- NOTE | 2018-05-05 08:01 | P.PNADD ---
Addendum to Inpatient Note Additional information: Cardiology was called overnight by RN with concern for "patient having runs of VT". I have reviewed available telemetry and see the patient has not had any VT and instead has artifact noted corresponding to telemetry computer readings of VT. There is NSR and a brief atrial run of a few beats only. Please contact cardiology group with any further concerns.
[2018-05-05] MEDS: Insulin NovoLIN Regular Correctional Sugar Inj SQ SCH ×4 (09:27→21:14)
[2018-05-05] MEDS: Linezolid 600 MG Tablet PO SCH ×2 (09:30→21:15)
[2018-05-05] MEDS: predniSONE 5 MG Tablet PO SCH (09:31)
[2018-05-05] MEDS: Vitamin B Complex/Vit C/Folic Tablet PO SCH (09:31)
[2018-05-05] MEDS: Calcitriol 0.25 MCG Capsule PO SCH (09:31)
[2018-05-05] MEDS: Pantoprazole Inj 40 MG Vial IV.PUSH SCH (09:31)
[2018-05-05] MEDS: Senna/Docusate Sodium 8.6/50 MG Tablet PO SCH ×2 (09:35→21:15)
[2018-05-05] MEDS: hydrALAZINE 25 MG Tablet PO SCH ×3 (10:29→17:53)
[2018-05-05] MEDS: dilTIAZem CD 240 MG Capsule PO SCH (10:29)
[2018-05-05] MEDS: Metoprolol Tartrate 25 MG Tablet PO SCH ×2 (10:29→21:14)
--- NOTE | 2018-05-05 11:18 | P.PNIM ---
Subjective Interval history: wondering about suture removal right arm c/o wheezing says renal might give him blood. asking again about rehab instead of home. Physical Exam Vital signs: Last Vital Signs Temp 97.7 F 05/05/18 08:00 Pulse 87 05/05/18 10:30 Resp 20 05/05/18 08:44 BP 131/71 05/05/18 10:30 Pulse Ox 96 05/05/18 08:44 Narrative: heart reg lung wheezing abd s/nt ext right arm incision. sutured. minimal clear drainage trace lower ext edema Results Labs CBC & Chem 7: 05/04/18 07:19 05/03/18 16:02 Assessment and Plan Assessment (1) End stage renal disease: Code(s): N18.6 - End stage renal disease Status: Acute (2) Hypertension: Code(s): I10 - Essential (primary) hypertension Status: Acute (3) Diabetes: Code(s): E11.9 - Type 2 diabetes mellitus without complications Status: Acute Plan: 1) Cardiopulmonary Arrest with successful recussitation - patient was having a routine colonoscopy and while being sedated he had an asystolic episode. - He received 2 rounds of epinephrine and chest compressions were performed. - He was initially intubated on arrival to the ER and then subsequently was extubated. - On April 15 patient again started having respiratory distress and was intubated again. - Patient was extubated on April 21, 2017 and has been doing well. - [facility] (04/25/18) with Dr. Ramos Arredondo - Successful percutaneous coronary intervention with drug-eluting stent to the mid body of the saphenous vein graft to diagonal branch. - ASA, plavix, imdur, lipitor 2) Septic Thrombophlebitis - comgmt with Vascular Surgery and Infectious Disease - Pt taken to the OR by Dr. Meade. & underwent excision of the antecubital veins and a portion of the basilic vein on the right with tissue cultures, irrigation and packing. - Case d/w Dr. Meade (04/27/18) - Zosyn stopped - Zyvox (04/25 - 04/29) - Vancomycin on HD days - Discussed with Dr Blair. Diffucult to dose vanco given the way pt gets his outpt hemodialysis at home. She is recommending zyvoxx. will discuss suture removal timing with Dr Frye 3) Afib - off IV cardizem - change PO cardizem to long acting 3) ESRD on HD - HD ,, Wednesday per Dr. Vasquez -Pt still volume overloaded. had extra HD 4) DM2 - SSI 5) Anemia monitor getting epogen prbc with HD as needed. (4) Cardiopulmonary arrest with successful resuscitation: Code(s): I46.9 - Cardiac arrest, cause unspecified Status: Acute (5) Metabolic bone disease: Code(s): E88.9 - Metabolic disorder, unspecified; M90.80 - Osteopathy in diseases classified elsewhere, unspecified site Status: Acute (6) Thrombophlebitis arm: Code(s): I80.8 - Phlebitis and thrombophlebitis of other sites Status: Acute (7) Anemia: Code(s): D64.9 - Anemia, unspecified Status: Acute Progress Note: Quality VTE Deep Vein Thrombosis/Pulmonary Embolism Present on Admission: No _ (1) Hypertension Qualifiers: Hypertension type: essential hypertension Qualified Code(s): I10 - Essential (primary) hypertension (2) Diabetes Qualifiers: Diabetes mellitus type: Diabetes mellitus ferry terminal agent insulin use: unspecified long-term insulin use status Diabetes mellitus complication status : Diabetes mellitus complication detail: Diabetic retinopathy severity: Proliferative retinopathy type: Diabetes mellitus macular edema: Laterality : Chronic kidney disease stage: (3) Anemia Qualifiers: Anemia type: Iron deficiency anemia type: Vitamin B12 deficiency anemia type: Folate deficiency anemia type: Bone marrow failure anemia type: Hemolytic anemia type: Other causes of anemia: Chronic kidney disease stage :
--- NOTE | 2018-05-05 13:38 | P.PNNP ---
Subjective Interval history: Patient was seen, eating, on O2 nasal cannula. Patient getting dialysis MWF while hospitalized, will get dialysis tomorrow. Was dialyzed yesterday to assist with fluid removal, 3 L removed in UF. Labs today have been ordered and are pending. <Leeann Mcgarry - Last Filed: 05/05/18 13:38> Physical Exam Vital signs: Vital Signs 05/04/18 15:57 05/04/18 16:00 05/04/18 17:14 Temperature 98.0 F 99.2 F Pulse Rate 57 L 103 H 95 H Respiratory Rate 18 20 15 Blood Pressure 152/81 H 105/50 L Pulse Oximetry 97 97 05/04/18 17:45 05/04/18 19:40 05/04/18 20:00 Temperature 98.2 F Pulse Rate 98 H 101 H Respiratory Rate 18 17 Blood Pressure 104/52 L 170/77 H Pulse Oximetry 96 97 05/04/18 21:45 05/04/18 23:05 05/04/18 23:15 Temperature 98.2 F Pulse Rate 98 H 71 Respiratory Rate 18 20 18 Blood Pressure 150/85 H Pulse Oximetry 95 05/05/18 00:00 05/05/18 04:00 05/05/18 08:00 Temperature 98.0 F 97.7 F Pulse Rate 102 H 79 77 Respiratory Rate 16 17 Blood Pressure 100/54 L 108/64 Pulse Oximetry 98 99 05/05/18 08:44 05/05/18 10:30 05/05/18 12:00 Temperature 97.9 F Pulse Rate 70 87 85 Respiratory Rate 20 17 Blood Pressure 131/71 147/89 H Pulse Oximetry 96 98 05/05/18 13:07 Temperature Pulse Rate 77 Respiratory Rate 20 Blood Pressure Pulse Oximetry Intake & Output 05/04/18 05/05/18 05/05/18 18:59 06:59 18:59 Intake Total 490 / 490 240 / 240 Output Total 6000 / 6000 Balance -5510 / -5510 240 / 240 Weight 116.6 kg Intake: IV 250 / 250 Vancomycin Inj 1,250 MG In NS 250 / 250 Inj 250 ML @ 250 mls/hr IV.SIG WITH DIALYSIS PRN Rx#:[id number] Oral 240 / 240 240 / 240 Output: Hemodialysis Amount 6000 / 6000 Other: # Voids 0 1 Date of Last Bowel Movement 05/04/18 # Bowel Movements 0 Narrative: GENERAL: obese middle-aged white male, NAD. SKIN: Warm and dry. HEAD: Atraumatic. Normocephalic. EYES: Pupils equal and round. No scleral icterus. No injection or drainage. ENT: No nasal bleeding or discharge. Mucous membranes pink and moist. NECK: Trachea midline. No JVD. CARDIOVASCULAR: Regular rate and rhythm. RESPIRATORY: Bilateral wheezing. GASTROINTESTINAL: Abdomen soft, non-tender, nondistended. MUSCULOSKELETAL: Dressing over the right arm. Bilateral lower extremity edema. NEUROLOGICAL: Awake and alert. Motor grossly within normal limits. PSYCHIATRIC: Appropriate mood and affect. <Leeann Mcgarry - Last Filed: 05/05/18 13:38> Vital signs: Vital Signs 05/04/18 19:40 05/04/18 20:00 05/04/18 21:45 Temperature 98.2 F Pulse Rate 98 H 101 H Respiratory Rate 18 17 18 Blood Pressure 170/77 H Pulse Oximetry 96 97 05/04/18 23:05 05/04/18 23:15 05/05/18 00:00 Temperature 98.2 F Pulse Rate 98 H 71 102 H Respiratory Rate 20 18 Blood Pressure 150/85 H Pulse Oximetry 95 05/05/18 04:00 05/05/18 08:00 05/05/18 08:44 Temperature 98.0 F 97.7 F Pulse Rate 79 77 70 Respiratory Rate 16 17 20 Blood Pressure 100/54 L 108/64 Pulse Oximetry 98 99 96 05/05/18 10:30 05/05/18 12:00 05/05/18 13:07 Temperature 97.9 F Pulse Rate 87 85 77 Respiratory Rate 17 20 Blood Pressure 131/71 147/89 H Pulse Oximetry 98 05/05/18 15:50 05/05/18 15:55 Temperature 98.2 F Pulse Rate 78 81 Respiratory Rate 17 18 Blood Pressure 109/61 Pulse Oximetry 98 Intake & Output 05/05/18 05/05/18 05/06/18 06:59 18:59 06:59 Intake Total 240 / 240 480 / 480 Output Total 0 / 0 Balance 240 / 240 480 / 480 Weight 116.6 kg Intake: Oral 240 / 240 480 / 480 Output: Urine 0 / 0 Other: # Voids 1 Date of Last Bowel Movement 05/04/18 # Bowel Movements 2 <Tramaine Dixon - Last Filed: 05/05/18 19:36> Assessment and Plan - Assessment (1) End stage renal disease Code(s): N18.6 - End stage renal disease Status: Acute Plan: Patient with ESRD, on Home HD. Patient getting dialysis MWF while hospitalized, will get dialysis tomorrow. Was dialyzed yesterday to assist with fluid removal, 3 L removed in UF. Avoid Gadolinium. Monitor fluid and electrolytes. (2) Hypertension Code(s): I10 - Essential (primary) hypertension Status: Acute Qualifiers: Hypertension type: essential hypertension Qualified Code(s): I10 - Essential (primary) hypertension Plan: Continue to monitor. Patient on Hydralazine and Cardizem. (3) Diabetes Code(s): E11.9 - Type 2 diabetes mellitus without complications Status: Acute Qualifiers: Diabetes mellitus fdc insulin use: unspecified fdc insulin use status Plan: Monitor blood glucose.Insulin coverage to maintain blood glucose levels between 140 and 180 while hospitalized. (4) Cardiopulmonary arrest with successful resuscitation Code(s): I46.9 - Cardiac arrest, cause unspecified Status: Acute Plan: s/p cardiac cath. (5) Metabolic bone disease Code(s): E88.9 - Metabolic disorder, unspecified; M90.80 - Osteopathy in diseases classified elsewhere, unspecified site Status: Acute Plan: Sensipar has been held due to hypocalcemia. PTH level 1954, patient on Calcitriol 0.5 mcg po daily. Monitor phosphorus intermittently, he is on Renvela. (6) Thrombophlebitis arm Code(s): I80.8 - Phlebitis and thrombophlebitis of other sites Status: Acute Plan: s/p I&D. (7) Anemia Code(s): D64.9 - Anemia, unspecified Status: Acute Plan: Continue Epogen with dialysis. Labs today have been ordered and are pending. If Hgb less than or equal to 7.5 will transfuse 1 unit of PRBC with dialysis tomorrow. <Leeann Mcgarry - Last Filed: 05/05/18 13:38> - Assessment (1) End stage renal disease Code(s): N18.6 - End stage renal disease Status: Acute (2) Hypertension Code(s): I10 - Essential (primary) hypertension Status: Acute Qualifiers: Hypertension type: essential hypertension Qualified Code(s): I10 - Essential (primary) hypertension (3) Diabetes Code(s): E11.9 - Type 2 diabetes mellitus without complications Status: Acute Qualifiers: Diabetes mellitus ad terminal makeup operator insulin use: unspecified fdc insulin use status (4) Cardiopulmonary arrest with successful resuscitation Code(s): I46.9 - Cardiac arrest, cause unspecified Status: Acute (5) Metabolic bone disease Code(s): E88.9 - Metabolic disorder, unspecified; M90.80 - Osteopathy in diseases classified elsewhere, unspecified site Status: Acute (6) Thrombophlebitis arm Code(s): I80.8 - Phlebitis and thrombophlebitis of other sites Status: Acute (7) Anemia Code(s): D64.9 - Anemia, unspecified Status: Acute - Attending Attestation patient was seen and examined. Dialysis tomorrow. Monitor fluid and electrolytes. He is currently on Vancomycin. <Tramaine Dixon - Last Filed: 05/05/18 19:36>
[2018-05-05 17:55] LABS: Baso % (Auto) 0.4 % (0.0-2.0); Eos # (Auto) 0.1 th/mm3 (0.0-0.4); Eos % (Auto) 1.4 % (0.0-4.0); Hematocrit 23.5 % (39.0-51.0); Hemoglobin 7.4 gm/dL (13.0-17.0); Lymph # (Auto) 0.7 th/mm3 (1.0-4.8); Lymph % (Auto) 7.5 % (9.0-44.0); Mean Corpuscular HGB Conc 31.4 % (32.0-36.0); Mean Corpuscular Hemoglobin 27.3 pg (27.0-34.0); Mean Corpuscular Volume 87.2 fL (80.0-100.0); Mean Platelet Volume 8.3 fL (7.0-11.0); Mono # (Auto) 0.7 th/mm3 (0.0-0.9); Mono % (Auto) 8.1 % (0.0-8.0); Neut # (Auto) 7.2 th/mm3 (1.8-7.7); Neut % (Auto) 82.6 % (16.0-70.0); Platelet Count 191 th/mm3 (150-450); Red Cell Distribution Width 18.9 % (11.6-17.2); White Blood Count 8.8 th/mm3 (4.0-11.0)
[2018-05-05 18:25] LABS: Calcium 9.4 mg/dL (8.5-10.1); Carbon Dioxide 27.4 meq/L (21.0-32.0); Potassium 4.1 meq/L (3.5-5.1)
--- NOTE | 2018-05-05 19:26 | P.PN ---
Subjective Interval history: Complains of increased congestion today. On O2 at 3 L. Was dialyzed yesterday. Using CPAP at night. Still has some leg edema Physical Exam Vital signs: Vital Signs 05/04/18 19:40 05/04/18 20:00 05/04/18 21:45 Temperature 98.2 F Pulse Rate 98 H 101 H Respiratory Rate 18 17 18 Blood Pressure 170/77 H Pulse Oximetry 96 97 05/04/18 23:05 05/04/18 23:15 05/05/18 00:00 Temperature 98.2 F Pulse Rate 98 H 71 102 H Respiratory Rate 20 18 Blood Pressure 150/85 H Pulse Oximetry 95 05/05/18 04:00 05/05/18 08:00 05/05/18 08:44 Temperature 98.0 F 97.7 F Pulse Rate 79 77 70 Respiratory Rate 16 17 20 Blood Pressure 100/54 L 108/64 Pulse Oximetry 98 99 96 05/05/18 10:30 05/05/18 12:00 05/05/18 13:07 Temperature 97.9 F Pulse Rate 87 85 77 Respiratory Rate 17 20 Blood Pressure 131/71 147/89 H Pulse Oximetry 98 05/05/18 15:50 05/05/18 15:55 Temperature 98.2 F Pulse Rate 78 81 Respiratory Rate 17 18 Blood Pressure 109/61 Pulse Oximetry 98 Intake & Output 05/05/18 05/05/18 05/06/18 06:59 18:59 06:59 Intake Total 240 / 240 480 / 480 Output Total 0 / 0 Balance 240 / 240 480 / 480 Weight 116.6 kg Intake: Oral 240 / 240 480 / 480 Output: Urine 0 / 0 Other: # Voids 1 Date of Last Bowel Movement 05/04/18 # Bowel Movements 2 Narrative: GENERAL: obese middle-aged white male, NAD. SKIN: Warm and dry. HEAD: Atraumatic. Normocephalic. EYES: Pupils equal and round. No scleral icterus. No injection or drainage. ENT: No nasal bleeding or discharge. Mucous membranes pink and moist. NECK: Trachea midline. No JVD. CARDIOVASCULAR: Regular rate and rhythm. RESPIRATORY: Occasional bibasilar crackles and scattered wheezes. GASTROINTESTINAL: Abdomen soft, non-tender, nondistended. MUSCULOSKELETAL: Bilateral lower extremity edema. No calf tenderness NEUROLOGICAL: Awake and alert. Motor grossly within normal limits. PSYCHIATRIC: Appropriate mood and affect. Results - Labs CBC & Chem 7: 05/05/18 17:34 05/05/18 17:34 Laboratory Results - last 24 hr 05/04/18 05/05/18 05/05/18 20:31 07:48 11:47 WBC RBC Hgb Hct MCV MCH MCHC RDW Plt Count MPV Neut % (Auto) Lymph % (Auto) [place] % (Auto) Eos % (Auto) Baso % (Auto) Neut # (Auto) Lymph # (Auto) [place] # (Auto) Eos # (Auto) Baso # (Auto) WBC Differential Differential Comment Sodium Potassium Chloride Carbon Dioxide Anion Gap BUN Creatinine Estimated GFR POC Glucose 219 H 129 H 200 H Random Glucose Calcium 05/05/18 05/05/18 05/05/18 17:34 17:34 17:35 WBC 8.8 RBC 2.70 L Hgb 7.4 L Hct 23.5 L MCV 87.2 MCH 27.3 MCHC 31.4 L RDW 18.9 H Plt Count 191 MPV 8.3 Neut % (Auto) 82.6 H Lymph % (Auto) 7.5 L [place] % (Auto) 8.1 H Eos % (Auto) 1.4 Baso % (Auto) 0.4 Neut # (Auto) 7.2 Lymph # (Auto) 0.7 L [place] # (Auto) 0.7 Eos # (Auto) 0.1 Baso # (Auto) 0.0 WBC Differential . Differential Comment Auto diff final Sodium 137 Potassium 4.1 Chloride 99 Carbon Dioxide 27.4 Anion Gap 11 BUN 31 H Creatinine 5.98 H Estimated GFR 10 L POC Glucose 179 H Random Glucose 151 H Calcium 9.4 Assessment and Plan - Assessment (1) Respiratory failure Code(s): J96.90 - Respiratory failure, unspecified, unspecified whether with hypoxia or hypercapnia Status: Acute (2) Metabolic bone disease Code(s): E88.9 - Metabolic disorder, unspecified; M90.80 - Osteopathy in diseases classified elsewhere, unspecified site Status: Acute (3) Supraventricular arrhythmia Code(s): I49.9 - Cardiac arrhythmia, unspecified Status: Acute (4) End stage renal disease Code(s): N18.6 - End stage renal disease Status: Acute (5) Hypertension Code(s): I10 - Essential (primary) hypertension Status: Acute (6) Diabetes Code(s): E11.9 - Type 2 diabetes mellitus without complications Status: Acute (7) End stage renal disease on dialysis Code(s): N18.6 - End stage renal disease; Z99.2 - Dependence on renal dialysis Status: Acute (8) Cardiopulmonary arrest with successful resuscitation Code(s): I46.9 - Cardiac arrest, cause unspecified Status: Acute (9) End stage renal disease on dialysis Code(s): N18.6 - End stage renal disease; Z99.2 - Dependence on renal dialysis Status: Acute - Plan 1 Continue O2 3 L N /C daytime and at bedtime 2. Continue CPAP at bedtime with oxygen 28% 3. Incentive spirometry every 2 hours bedside 4. Continue antibiotics as ordered 5. DuoNeb nebs 4 times daily. 6. Arrange home O2 at 2 L 7. Chest x-ray 8. PT for activity 9. Rehab placement in a.m. (5) Hypertension Qualifiers: Hypertension type: essential hypertension Qualified Code(s): I10 - Essential (primary) hypertension (6) Diabetes Qualifiers: Diabetes mellitus mcfp insulin use: unspecified mcfp insulin use status
[2018-05-06] MEDS: Isosorbide Mononitrate 60 MG ER 24HR Tablet (Imdur) PO SCH (06:27)
[2018-05-06] MEDS: dilTIAZem CD 240 MG Capsule PO SCH (08:10)
[2018-05-06] MEDS: Metoprolol Tartrate 25 MG Tablet PO SCH ×2 (08:11→21:13)
[2018-05-06] MEDS: hydrALAZINE 25 MG Tablet PO SCH ×3 (08:11→20:07)
[2018-05-06] MEDS: predniSONE 5 MG Tablet PO SCH (08:11)
[2018-05-06] MEDS: Calcitriol 0.25 MCG Capsule PO SCH (08:11)
[2018-05-06] MEDS: Linezolid 600 MG Tablet PO SCH ×2 (08:11→21:12)
[2018-05-06] MEDS: Pantoprazole Inj 40 MG Vial IV.PUSH SCH (08:13)
[2018-05-06] MEDS: Vitamin B Complex/Vit C/Folic Tablet PO SCH (08:18)
[2018-05-06] MEDS: Senna/Docusate Sodium 8.6/50 MG Tablet PO SCH ×2 (08:18→21:13)
[2018-05-06] MEDS: Insulin NovoLIN Regular Correctional Sugar Inj SQ SCH ×4 (08:30→21:13)
[2018-05-06] MEDS ORDERED: Sodium Chlor 0.9% Inj 250 ML IV.SIG SCH ×2 (10:00→12:00)
--- NOTE | 2018-05-06 11:38 | P.PNNP ---
Subjective Interval history: Patient was seen during dialysis on 3K, 260 ml/min, UF goal of 2.3 L. Patient was in no distress, on O2 nc. Patient gets dialysis MWF. Patient had complaints of hypotension and dizziness early this morning. Patient to receive blood transfusion today, 1 unit of PRBCs. <Leeann Mcgarry - Last Filed: 05/06/18 13:17> Physical Exam Vital signs: Vital Signs 05/05/18 12:00 05/05/18 13:07 05/05/18 15:50 Temperature 97.9 F 98.2 F Pulse Rate 87 77 78 Respiratory Rate 17 20 17 Blood Pressure 147/89 H 109/61 Pulse Oximetry 98 98 05/05/18 15:55 05/05/18 16:00 05/05/18 20:00 Temperature Pulse Rate 81 76 79 Respiratory Rate 18 Blood Pressure Pulse Oximetry 05/05/18 20:27 05/05/18 21:06 05/06/18 00:00 Temperature 98.3 F 98.5 F Pulse Rate 77 81 76 Respiratory Rate 18 17 17 Blood Pressure 100/52 L 100/25 L Pulse Oximetry 97 94 L 95 05/06/18 00:01 05/06/18 04:00 05/06/18 04:28 Temperature Pulse Rate 85 72 80 Respiratory Rate 20 18 Blood Pressure Pulse Oximetry 05/06/18 05:06 05/06/18 07:00 05/06/18 08:00 Temperature 97.5 F L 97.1 F L Pulse Rate 78 86 89 Respiratory Rate 17 18 20 Blood Pressure 97/52 L 183/72 H Pulse Oximetry 97 93 L Intake & Output 05/05/18 05/06/18 05/06/18 18:59 06:59 18:59 Intake Total 480 / 480 240 / 240 Output Total 0 / 0 Balance 480 / 480 240 / 240 Intake: Oral 480 / 480 240 / 240 Output: Urine 0 / 0 Other: # Voids 0 Date of Last Bowel Movement 05/04/18 05/05/18 # Bowel Movements 2 0 Narrative: GENERAL: obese middle-aged white male, NAD. SKIN: Warm and dry. HEAD: Atraumatic. Normocephalic. EYES: Pupils equal and round. No scleral icterus. No injection or drainage. ENT: No nasal bleeding or discharge. Mucous membranes pink and moist. NECK: Trachea midline. No JVD. CARDIOVASCULAR: Regular rate and rhythm. RESPIRATORY: Scattered wheezes but has improved. GASTROINTESTINAL: Abdomen soft, non-tender, nondistended. MUSCULOSKELETAL: Bilateral lower extremity edema. No calf tenderness NEUROLOGICAL: Awake and alert. Motor grossly within normal limits. PSYCHIATRIC: Appropriate mood and affect. <Leeann Mcgarry - Last Filed: 05/06/18 13:17> Vital signs: Vital Signs 05/05/18 20:00 05/05/18 20:27 05/05/18 21:06 Temperature 98.3 F Pulse Rate 79 77 81 Respiratory Rate 18 17 Blood Pressure 100/52 L Pulse Oximetry 97 94 L 05/06/18 00:00 05/06/18 00:01 05/06/18 04:00 Temperature 98.5 F Pulse Rate 76 85 72 Respiratory Rate 17 20 Blood Pressure 100/25 L Pulse Oximetry 95 05/06/18 04:28 05/06/18 05:06 05/06/18 07:00 Temperature 97.5 F L Pulse Rate 80 78 86 Respiratory Rate 18 17 18 Blood Pressure 97/52 L Pulse Oximetry 97 05/06/18 08:00 05/06/18 15:55 Temperature 97.1 F L 98.2 F Pulse Rate 89 91 H Respiratory Rate 20 16 Blood Pressure 183/72 H 90/51 L Pulse Oximetry 97 98 Intake & Output 05/05/18 05/06/18 05/06/18 18:59 06:59 18:59 Intake Total 480 / 480 240 / 240 0 / 0 Output Total 0 / 0 2300 / 2300 Balance 480 / 480 240 / 240 -2300 / -2300 Intake: Oral 480 / 480 240 / 240 Intake (Blood Product) Amt 0 / 0 Rbc As-3 Leukoreduced Unit 0 / 0 [id number] Output: Urine 0 / 0 Hemodialysis Amount 2300 / 2300 Other: # Voids 0 Date of Last Bowel Movement 05/04/18 05/05/18 # Bowel Movements 2 0 <Tramaine Dixon - Last Filed: 05/06/18 16:18> Assessment and Plan - Assessment (1) End stage renal disease Code(s): N18.6 - End stage renal disease Status: Acute Plan: Patient with ESRD, on Home HD. Patient getting dialysis MWF while hospitalized. Patient was seen during dialysis on 3K, 260 ml/min, UF goal of 2.3 L. Avoid Gadolinium. Monitor fluid and electrolytes. (2) Hypertension Code(s): I10 - Essential (primary) hypertension Status: Acute Qualifiers: Hypertension type: essential hypertension Qualified Code(s): I10 - Essential (primary) hypertension Plan: Continue to monitor. Patient on Hydralazine, Cardizem, and Metoprolol. Patient hypotensive early this morning. (3) Diabetes Code(s): E11.9 - Type 2 diabetes mellitus without complications Status: Acute Qualifiers: Diabetes mellitus terminal supervisor insulin use: unspecified retirement insulin use status Plan: Monitor blood glucose.Insulin coverage to maintain blood glucose levels between 140 and 180 while hospitalized. (4) Cardiopulmonary arrest with successful resuscitation Code(s): I46.9 - Cardiac arrest, cause unspecified Status: Acute Plan: s/p cardiac cath. (5) Metabolic bone disease Code(s): E88.9 - Metabolic disorder, unspecified; M90.80 - Osteopathy in diseases classified elsewhere, unspecified site Status: Acute Plan: Sensipar has been held due to hypocalcemia. PTH level 1954, patient on Calcitriol 0.5 mcg po daily. Monitor phosphorus intermittently, he is on Renvela. (6) Thrombophlebitis arm Code(s): I80.8 - Phlebitis and thrombophlebitis of other sites Status: Acute Plan: s/p I&D. (7) Anemia Code(s): D64.9 - Anemia, unspecified Status: Acute Plan: Continue Epogen with dialysis. Hgb 7.4, will transfuse 1 unit of PRBC today. <Leeann Mcgarry - Last Filed: 05/06/18 13:17> - Assessment (1) End stage renal disease Code(s): N18.6 - End stage renal disease Status: Acute (2) Hypertension Code(s): I10 - Essential (primary) hypertension Status: Acute Qualifiers: Hypertension type: essential hypertension Qualified Code(s): I10 - Essential (primary) hypertension (3) Diabetes Code(s): E11.9 - Type 2 diabetes mellitus without complications Status: Acute Qualifiers: Diabetes mellitus retirement insulin use: unspecified terminal supervisor insulin use status (4) Cardiopulmonary arrest with successful resuscitation Code(s): I46.9 - Cardiac arrest, cause unspecified Status: Acute (5) Metabolic bone disease Code(s): E88.9 - Metabolic disorder, unspecified; M90.80 - Osteopathy in diseases classified elsewhere, unspecified site Status: Acute (6) Thrombophlebitis arm Code(s): I80.8 - Phlebitis and thrombophlebitis of other sites Status: Acute (7) Anemia Code(s): D64.9 - Anemia, unspecified Status: Acute - Attending Attestation patient was seen and examined. Agree with above assessment and plan. He is now back on Zyvox. <Tramaine Dixon - Last Filed: 05/06/18 16:18>
--- NOTE | 2018-05-06 12:16 | P.PNIM ---
Subjective Interval history: pt seen at HD. wants blood transfusion Physical Exam Vital signs: Last Vital Signs Temp 97.1 F L 05/06/18 08:00 Pulse 89 05/06/18 08:00 Resp 20 05/06/18 08:00 BP 183/72 H 05/06/18 08:00 Pulse Ox 93 L 05/06/18 08:00 Narrative: heart reg lung no wheezing abd s/nt ext right arm incision. sutured. minimal clear drainage trace lower ext edema Results Labs CBC & Chem 7: 05/05/18 17:34 05/05/18 17:34 Assessment and Plan Assessment (1) End stage renal disease: Code(s): N18.6 - End stage renal disease Status: Acute (2) Hypertension: Code(s): I10 - Essential (primary) hypertension Status: Acute (3) Diabetes: Code(s): E11.9 - Type 2 diabetes mellitus without complications Status: Acute Plan: 1) Cardiopulmonary Arrest with successful recussitation - patient was having a routine colonoscopy and while being sedated he had an asystolic episode. - He received 2 rounds of epinephrine and chest compressions were performed. - He was initially intubated on arrival to the ER and then subsequently was extubated. - On April 15 patient again started having respiratory distress and was intubated again. - Patient was extubated on April 21, 2017 and has been doing well. - C (04/25/18) with Dr. Ramos Arredondo - Successful percutaneous coronary intervention with drug-eluting stent to the mid body of the saphenous vein graft to diagonal branch. - ASA, plavix, imdur, lipitor 2) Septic Thrombophlebitis - comgmt with Vascular Surgery and Infectious Disease - Pt taken to the OR by Dr. Meade. & underwent excision of the antecubital veins and a portion of the basilic vein on the right with tissue cultures, irrigation and packing. - Case d/w Dr. Meade (04/27/18) - Zosyn stopped - Zyvox (04/25 - 04/29) - Vancomycin on HD days - Discussed with Dr Blair. Diffucult to dose vanco given the way pt gets his outpt hemodialysis at home. She is recommending zyvoxx. would give last doses of zyvoxx on 05/[address] Frye recommended removal of sutures 2 weeks postop which would be 05/10 3) Afib - off IV cardizem - change PO cardizem to long acting 3) ESRD on HD - HD ,, Wednesday per Dr. Vasquez -Pt still volume overloaded. had extra HD 4) DM2 - SSI 5) Anemia monitor getting epogen prbc today ordered. (4) Cardiopulmonary arrest with successful resuscitation: Code(s): I46.9 - Cardiac arrest, cause unspecified Status: Acute (5) Metabolic bone disease: Code(s): E88.9 - Metabolic disorder, unspecified; M90.80 - Osteopathy in diseases classified elsewhere, unspecified site Status: Acute (6) Thrombophlebitis arm: Code(s): I80.8 - Phlebitis and thrombophlebitis of other sites Status: Acute (7) Anemia: Code(s): D64.9 - Anemia, unspecified Status: Acute Progress Note: Quality VTE Deep Vein Thrombosis/Pulmonary Embolism Present on Admission: No _ (1) Diabetes Qualifiers: Chronic kidney disease stage: Diabetes mellitus complication detail: Diabetes mellitus complication status: Diabetes mellitus penitentiary insulin use : unspecified termination clerk insulin use status Diabetes mellitus macular edema: Diabetes mellitus type: Diabetic retinopathy severity: Laterality: Proliferative retinopathy type: (2) Anemia Qualifiers: Anemia type: Bone marrow failure anemia type: Chronic kidney disease stage : Folate deficiency anemia type: Hemolytic anemia type: Iron deficiency anemia type: Other causes of anemia: Vitamin B12 deficiency anemia type: (3) Hypertension Qualifiers: Hypertension type: essential hypertension Qualified Code(s): I10 - Essential (primary) hypertension
--- NOTE | 2018-05-06 19:46 | P.PN ---
Subjective Interval history: She is doing better today. Was dialyzed and transfused. Complains of some pain in the back. On O2 at 3 L. On CPAP at night. Physical Exam Vital signs: Vital Signs 05/05/18 20:00 05/05/18 20:27 05/05/18 21:06 Temperature 98.3 F Pulse Rate 79 77 81 Respiratory Rate 18 17 Blood Pressure 100/52 L Pulse Oximetry 97 94 L 05/06/18 00:00 05/06/18 00:01 05/06/18 04:00 Temperature 98.5 F Pulse Rate 76 85 72 Respiratory Rate 17 20 Blood Pressure 100/25 L Pulse Oximetry 95 05/06/18 04:28 05/06/18 05:06 05/06/18 07:00 Temperature 97.5 F L Pulse Rate 80 78 86 Respiratory Rate 18 17 18 Blood Pressure 97/52 L Pulse Oximetry 97 05/06/18 08:00 05/06/18 12:00 05/06/18 15:55 Temperature 97.1 F L 98.2 F Pulse Rate 89 91 H Respiratory Rate 20 16 Blood Pressure 183/72 H 90/51 L Pulse Oximetry 97 97 98 05/06/18 16:00 05/06/18 16:15 05/06/18 16:45 Temperature 98.8 F 98.2 F Pulse Rate 92 H 87 89 Respiratory Rate 18 16 18 Blood Pressure 99/57 L 99/57 L Pulse Oximetry 96 97 05/06/18 18:21 05/06/18 19:09 Temperature 98.3 F Pulse Rate 94 H Respiratory Rate 16 16 Blood Pressure 107/66 Pulse Oximetry Intake & Output 05/06/18 05/06/18 05/07/18 06:59 18:59 06:59 Intake Total 240 / 240 500 / 500 0 / 0 Output Total 2300 / 2300 Balance 240 / 240 -1800 / -1800 0 / 0 Intake: Oral 240 / 240 500 / 500 Intake (Blood Product) Amt 0 / 0 0 / 0 Rbc As-3 Leukoreduced Unit 0 / 0 0 / 0 [id number] Output: Hemodialysis Amount 2300 / 2300 Other: # Voids 0 Date of Last Bowel Movement 05/05/18 # Bowel Movements 0 Narrative: GENERAL: obese middle-aged white male, NAD. SKIN: Warm and dry. HEAD: Atraumatic. Normocephalic. EYES: Pupils equal and round. No scleral icterus. No injection or drainage. ENT: No nasal bleeding or discharge. Mucous membranes pink and moist. NECK: Trachea midline. No JVD. CARDIOVASCULAR: Regular rate and rhythm. RESPIRATORY: Scattered wheezes with occasional basilar crackles GASTROINTESTINAL: Abdomen soft, non-tender, nondistended. MUSCULOSKELETAL: Bilateral lower extremity edema. No calf tenderness NEUROLOGICAL: Awake and alert. Motor grossly within normal limits. PSYCHIATRIC: Appropriate mood and affect. Results - Labs CBC & Chem 7: 05/05/18 17:34 05/05/18 17:34 Laboratory Results - last 24 hr 05/05/18 05/06/18 05/06/18 19:53 08:42 10:20 POC Glucose 183 H 146 H Blood Type O Positive Antibody Screen Negative MTS Gel Crossmatch See Detail 05/06/18 05/06/18 12:23 17:53 POC Glucose 153 H 218 H Blood Type Antibody Screen MTS Gel Crossmatch Assessment and Plan - Assessment (1) Respiratory failure Code(s): J96.90 - Respiratory failure, unspecified, unspecified whether with hypoxia or hypercapnia Status: Acute (2) Metabolic bone disease Code(s): E88.9 - Metabolic disorder, unspecified; M90.80 - Osteopathy in diseases classified elsewhere, unspecified site Status: Acute (3) Supraventricular arrhythmia Code(s): I49.9 - Cardiac arrhythmia, unspecified Status: Acute (4) End stage renal disease Code(s): N18.6 - End stage renal disease Status: Acute (5) Hypertension Code(s): I10 - Essential (primary) hypertension Status: Acute (6) Diabetes Code(s): E11.9 - Type 2 diabetes mellitus without complications Status: Acute (7) End stage renal disease on dialysis Code(s): N18.6 - End stage renal disease; Z99.2 - Dependence on renal dialysis Status: Acute (8) Cardiopulmonary arrest with successful resuscitation Code(s): I46.9 - Cardiac arrest, cause unspecified Status: Acute (9) End stage renal disease on dialysis Code(s): N18.6 - End stage renal disease; Z99.2 - Dependence on renal dialysis Status: Acute - Plan 1 Continue O2 3 L N /C daytime and at bedtime 2. Continue CPAP at bedtime with oxygen 28% 3. Incentive spirometry every 2 hours bedside 4. Continue antibiotics per ID 5. DuoNeb nebs 4 times daily. 6. Arrange home O2 at 2 L 7. Chest x-ray on Wednesday 8. PT for activity 9. Rehab placement soon (5) Hypertension Qualifiers: Hypertension type: essential hypertension Qualified Code(s): I10 - Essential (primary) hypertension (6) Diabetes Qualifiers: Diabetes mellitus potline monitor insulin use: unspecified potline monitor insulin use status
[2018-05-07] MEDS: Isosorbide Mononitrate 60 MG ER 24HR Tablet (Imdur) PO SCH (06:32)
[2018-05-07] MEDS: Insulin NovoLIN Regular Correctional Sugar Inj SQ SCH ×4 (08:05→20:18)
[2018-05-07] MEDS: dilTIAZem CD 240 MG Capsule PO SCH (08:49)
[2018-05-07] MEDS: predniSONE 5 MG Tablet PO SCH (08:50)
[2018-05-07] MEDS: Calcitriol 0.25 MCG Capsule PO SCH (08:50)
[2018-05-07] MEDS: Linezolid 600 MG Tablet PO SCH ×2 (08:50→20:19)
[2018-05-07] MEDS: Metoprolol Tartrate 25 MG Tablet PO SCH ×2 (08:50→20:18)
[2018-05-07] MEDS: Senna/Docusate Sodium 8.6/50 MG Tablet PO SCH ×2 (08:50→20:19)
[2018-05-07] MEDS: Vitamin B Complex/Vit C/Folic Tablet PO SCH (08:50)
--- NOTE | 2018-05-07 09:10 | P.PNIM ---
Subjective Interval history: pt dc held last night due to blood transfusion and also lower bp. Physical Exam Vital signs: Last Vital Signs Temp 98.7 F 05/07/18 08:39 Pulse 102 H 05/07/18 08:39 Resp 20 05/07/18 08:39 BP 115/51 L 05/07/18 08:39 Pulse Ox 93 L 05/07/18 08:39 Narrative: heart reg lung no wheezing abd s/nt ext right arm incision. sutured. minimal clear drainage trace lower ext edema Results Labs CBC & Chem 7: 05/05/18 17:34 05/05/18 17:34 Assessment and Plan Assessment (1) End stage renal disease: Code(s): N18.6 - End stage renal disease Status: Acute (2) Hypertension: Code(s): I10 - Essential (primary) hypertension Status: Acute (3) Diabetes: Code(s): E11.9 - Type 2 diabetes mellitus without complications Status: Acute Plan: 1) Cardiopulmonary Arrest with successful recussitation - patient was having a routine colonoscopy and while being sedated he had an asystolic episode. - He received 2 rounds of epinephrine and chest compressions were performed. - He was initially intubated on arrival to the ER and then subsequently was extubated. - On April 15 patient again started having respiratory distress and was intubated again. - Patient was extubated on April 21, 2017 and has been doing well. - C (04/25/18) with Dr. Ramos Arredondo - Successful percutaneous coronary intervention with drug-eluting stent to the mid body of the saphenous vein graft to diagonal branch. - ASA, plavix, imdur, lipitor 2) Septic Thrombophlebitis - comgmt with Vascular Surgery and Infectious Disease - Pt taken to the OR by Dr. Meade. & underwent excision of the antecubital veins and a portion of the basilic vein on the right with tissue cultures, irrigation and packing. - Case d/w Dr. Meade (04/27/18) - Zosyn stopped - Zyvox (04/25 - 04/29) - Vancomycin on HD days - Discussed with Dr Blair. Diffucult to dose vanco given the way pt gets his outpt hemodialysis at home. She is recommending zyvoxx. would give last doses of zyvoxx on 05/[address] DR Frye recommended removal of sutures 2 weeks postop which would be 05/10 dc to rehab held. Pt had 1 unit prbc 05/06. His bp also has been lower likely from anemia, volume removal from HD, and the 3 new meds bb/ccb/hydralazine. stop hydralazine. might need to lower ccb. recheck h/h as he might need more blood prior to rehab...as he does get symptomatic with lightheadedness and dizziness. 3) Afib - off IV cardizem - change PO cardizem to long acting 3) ESRD on HD - HD ,, Wednesday per Dr. Vasquez -Pt still volume overloaded. had extra HD 4) DM2 - SSI 5) Anemia monitor getting epogen 1 unit prbc 05/06 (4) Cardiopulmonary arrest with successful resuscitation: Code(s): I46.9 - Cardiac arrest, cause unspecified Status: Acute (5) Metabolic bone disease: Code(s): E88.9 - Metabolic disorder, unspecified; M90.80 - Osteopathy in diseases classified elsewhere, unspecified site Status: Acute (6) Thrombophlebitis arm: Code(s): I80.8 - Phlebitis and thrombophlebitis of other sites Status: Acute (7) Anemia: Code(s): D64.9 - Anemia, unspecified Status: Acute Progress Note: Quality VTE Deep Vein Thrombosis/Pulmonary Embolism Present on Admission: No _ (1) Hypertension Qualifiers: Hypertension type: essential hypertension Qualified Code(s): I10 - Essential (primary) hypertension (2) Diabetes Qualifiers: Diabetes mellitus type: Diabetes mellitus [facility] insulin use: unspecified 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
[2018-05-07 11:05] LABS: Baso # (Auto) 0.1 th/mm3 (0.0-0.2); Baso % (Auto) 0.6 % (0.0-2.0); Eos # (Auto) 0.2 th/mm3 (0.0-0.4); Eos % (Auto) 2.2 % (0.0-4.0); Hematocrit 27.7 % (39.0-51.0); Hemoglobin 8.8 gm/dL (13.0-17.0); Lymph # (Auto) 1.8 th/mm3 (1.0-4.8); Lymph % (Auto) 22.3 % (9.0-44.0); Mean Corpuscular HGB Conc 31.7 % (32.0-36.0); Mean Corpuscular Hemoglobin 27.8 pg (27.0-34.0); Mean Corpuscular Volume 87.9 fL (80.0-100.0); Mean Platelet Volume 8.6 fL (7.0-11.0); Mono # (Auto) 0.7 th/mm3 (0.0-0.9); Neut # (Auto) 5.3 th/mm3 (1.8-7.7); Neut % (Auto) 65.9 % (16.0-70.0); Platelet Count 226 th/mm3 (150-450); Red Blood Count 3.15 mil/mm3 (4.50-5.90); Red Cell Distribution Width 18.4 % (11.6-17.2); White Blood Count 8.1 th/mm3 (4.0-11.0)
[2018-05-07 11:36] LABS: Calcium 9.8 mg/dL (8.5-10.1); Potassium 3.9 meq/L (3.5-5.1)
--- NOTE | 2018-05-07 15:50 | P.PNNP ---
Subjective Interval history: Patient does not know why he continues to have swelling to his bilateral feet despite dialysis treatments. He has no other complaints at this time. In no acute distress. Denies any shortness of breath or chest pain. <Jenna Adan - Last Filed: 05/07/18 15:39> Physical Exam Vital signs: Vital Signs 05/06/18 15:55 05/06/18 16:00 05/06/18 16:15 Temperature 98.2 F 98.8 F 98.2 F Pulse Rate 91 H 92 H 87 Respiratory Rate 16 18 16 Blood Pressure 90/51 L 99/57 L 99/57 L Pulse Oximetry 98 96 97 05/06/18 16:45 05/06/18 18:21 05/06/18 19:09 Temperature 98.3 F Pulse Rate 89 94 H Respiratory Rate 18 16 16 Blood Pressure 107/66 Pulse Oximetry 05/06/18 20:00 05/06/18 20:26 05/06/18 22:30 Temperature 98.2 F Pulse Rate 87 84 86 Respiratory Rate 20 17 Blood Pressure 82/45 L 111/56 L Pulse Oximetry 98 97 05/07/18 00:00 05/07/18 03:35 05/07/18 04:00 Temperature 97.8 F 98.1 F Pulse Rate 86 86 Respiratory Rate 20 8 L 20 Blood Pressure 91/55 L 95/50 L Pulse Oximetry 97 96 05/07/18 04:33 05/07/18 08:00 05/07/18 08:39 Temperature 98.7 F Pulse Rate 83 102 H Respiratory Rate 15 20 Blood Pressure 115/51 L Pulse Oximetry 97 93 L 05/07/18 10:01 05/07/18 13:07 05/07/18 15:00 Temperature 98.3 F Pulse Rate 85 82 82 Respiratory Rate 14 16 14 Blood Pressure 90/42 L Pulse Oximetry 97 Intake & Output 05/06/18 05/07/18 05/07/18 18:59 06:59 18:59 Intake Total 500 / 500 0 / 0 Output Total 2300 / 2300 Balance -1800 / -1800 0 / 0 Intake: Oral 500 / 500 Intake (Blood Product) Amt 0 / 0 0 / 0 Rbc As-3 Leukoreduced Unit 0 / 0 0 / 0 [id number] Output: Hemodialysis Amount 2300 / 2300 Other: Date of Last Bowel Movement 05/05/18 Narrative: GENERAL: obese middle-aged white male, NAD. SKIN: Warm and dry. Gauze wrap to right mid arm, status post I&D for thrombophlebitis. HEAD: Atraumatic. Normocephalic. EYES: Pupils equal and round. No scleral icterus. No injection or drainage. ENT: No nasal bleeding or discharge. Mucous membranes pink and moist. NECK: Trachea midline. No JVD. CARDIOVASCULAR: Regular rate and rhythm. RESPIRATORY: Scattered wheezes with occasional basilar crackles GASTROINTESTINAL: Abdomen soft, non-tender, nondistended. MUSCULOSKELETAL: Bilateral lower extremity edema. No calf tenderness. NEUROLOGICAL: Awake and alert. Motor grossly within normal limits. PSYCHIATRIC: Appropriate mood and affect. <Jenna Adan - Last Filed: 05/07/18 15:39> Vital signs: Vital Signs 05/06/18 19:09 05/06/18 20:00 05/06/18 20:26 Temperature 98.3 F 98.2 F Pulse Rate 94 H 87 84 Respiratory Rate 16 20 17 Blood Pressure 107/66 82/45 L Pulse Oximetry 98 97 05/06/18 22:30 05/07/18 00:00 05/07/18 03:35 Temperature 97.8 F Pulse Rate 86 86 Respiratory Rate 20 8 L Blood Pressure 111/56 L 91/55 L Pulse Oximetry 97 05/07/18 04:00 05/07/18 04:33 05/07/18 08:00 Temperature 98.1 F Pulse Rate 86 83 Respiratory Rate 20 15 18 Blood Pressure 95/50 L Pulse Oximetry 96 97 05/07/18 08:39 05/07/18 10:01 05/07/18 12:00 Temperature 98.7 F Pulse Rate 102 H 85 Respiratory Rate 20 14 18 Blood Pressure 115/51 L Pulse Oximetry 93 L 05/07/18 13:07 05/07/18 15:00 05/07/18 17:26 Temperature 98.3 F 98.4 F Pulse Rate 82 82 82 Respiratory Rate 16 14 18 Blood Pressure 90/42 L 93/54 L Pulse Oximetry 97 97 Intake & Output 05/06/18 05/07/18 05/07/18 18:59 06:59 18:59 Intake Total 500 / 500 0 / 0 0 / 0 Output Total 2300 / 2300 Balance -1800 / -1800 0 / 0 0 / 0 Intake: Oral 500 / 500 Other 0 / 0 Intake (Blood Product) Amt 0 / 0 0 / 0 Rbc As-3 Leukoreduced Unit 0 / 0 0 / 0 [id number] Output: Hemodialysis Amount 2300 / 2300 Other: Date of Last Bowel Movement 05/05/18 05/05/18 # Bowel Movements 1 <Ailin Vasquez - Last Filed: 05/07/18 18:57> Assessment and Plan - Assessment (1) End stage renal disease Code(s): N18.6 - End stage renal disease Status: Acute Plan: Patient with ESRD, on Home HD. Patient getting dialysis MWF while hospitalized. Patient is an anuric, therefore not a candidate for diuretic treatment for bilateral lower swelling in feet -Avoid Gadolinium. -Monitor fluid and electrolytes. -Encouraged to keep feet elevated above heart (2) Hypertension Code(s): I10 - Essential (primary) hypertension Status: Acute Qualifiers: Hypertension type: essential hypertension Qualified Code(s): I10 - Essential (primary) hypertension Plan: Continue to monitor. Patient on Hydralazine, Cardizem, and Metoprolol. 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 (4) Cardiopulmonary arrest with successful resuscitation Code(s): I46.9 - Cardiac arrest, cause unspecified Status: Acute Plan: No complaints of chest pain, or shortness of breath s/p cardiac cath. [facility] 04/25/18 with PCI to SVG. Continue aspirin, Plavix, statin. -Cardiac signed off (5) Metabolic bone disease Code(s): E88.9 - Metabolic disorder, unspecified; M90.80 - Osteopathy in diseases classified elsewhere, unspecified site Status: Acute Plan: Sensipar has been held due to hypocalcemia. PTH level 1954, patient on Calcitriol 0.5 mcg po daily. -Monitor phosphorus intermittently, 6.6 on the 18 -He is on Renvela. -Phosphorus in the a.m. (6) Thrombophlebitis arm Code(s): I80.8 - Phlebitis and thrombophlebitis of other sites Status: Acute Plan: s/p I&D. Kerlix dressing to right mid arm, dry and intact (7) Anemia Code(s): D64.9 - Anemia, unspecified Status: Acute Plan: Continue Epogen with dialysis.. Hemoglobin 8.8 today, improving status post previous 1 unit of packed red blood cell transfusion 14,000 units of Epogen given yesterday with dialysis -Continue to monitor <Jenna Adan - Last Filed: 05/07/18 15:39> - Assessment (1) End stage renal disease Code(s): N18.6 - End stage renal disease Status: Acute (2) Hypertension Code(s): I10 - Essential (primary) hypertension Status: Acute Qualifiers: Hypertension type: essential hypertension Qualified Code(s): I10 - Essential (primary) hypertension (3) Diabetes Code(s): E11.9 - Type 2 diabetes mellitus without complications Status: Acute Qualifiers: Diabetes mellitus [facility] insulin use: unspecified [facility] insulin use status (4) Cardiopulmonary arrest with successful resuscitation Code(s): I46.9 - Cardiac arrest, cause unspecified Status: Acute (5) Metabolic bone disease Code(s): E88.9 - Metabolic disorder, unspecified; M90.80 - Osteopathy in diseases classified elsewhere, unspecified site Status: Acute (6) Thrombophlebitis arm Code(s): I80.8 - Phlebitis and thrombophlebitis of other sites Status: Acute (7) Anemia Code(s): D64.9 - Anemia, unspecified Status: Acute - Attending Attestation I have seen and examined him and discussed care with SANA West I agree with above assessment and plan ESRD on dialysis Wednesday, Wednesday and Wednesday Patient had thrombophlebitis now stable <Ailin Vasquez - Last Filed: 05/07/18 18:57>
[2018-05-08] MEDS: Isosorbide Mononitrate 60 MG ER 24HR Tablet (Imdur) PO SCH (06:02)
[2018-05-08] MEDS: Metoprolol Tartrate 25 MG Tablet PO SCH ×2 (08:14→21:02)
[2018-05-08] MEDS: Insulin NovoLIN Regular Correctional Sugar Inj SQ SCH ×4 (08:14→22:04)
[2018-05-08] MEDS: Linezolid 600 MG Tablet PO SCH ×2 (09:36→21:00)
[2018-05-08] MEDS: Senna/Docusate Sodium 8.6/50 MG Tablet PO SCH ×2 (09:36→21:02)
[2018-05-08] MEDS: predniSONE 5 MG Tablet PO SCH (09:36)
[2018-05-08] MEDS: Vitamin B Complex/Vit C/Folic Tablet PO SCH (09:36)
[2018-05-08] MEDS: Calcitriol 0.25 MCG Capsule PO SCH (09:37)
[2018-05-08 09:56] LABS: Baso % (Auto) 0.6 % (0.0-2.0); Eos # (Auto) 0.2 th/mm3 (0.0-0.4); Eos % (Auto) 3.4 % (0.0-4.0); Hematocrit 25.4 % (39.0-51.0); Hemoglobin 8.2 gm/dL (13.0-17.0); Lymph # (Auto) 1.2 th/mm3 (1.0-4.8); Lymph % (Auto) 17.3 % (9.0-44.0); Mean Corpuscular HGB Conc 32.1 % (32.0-36.0); Mean Corpuscular Hemoglobin 28.1 pg (27.0-34.0); Mean Corpuscular Volume 87.4 fL (80.0-100.0); Mean Platelet Volume 8.3 fL (7.0-11.0); Mono # (Auto) 0.6 th/mm3 (0.0-0.9); Mono % (Auto) 9.2 % (0.0-8.0); Neut # (Auto) 4.9 th/mm3 (1.8-7.7); Neut % (Auto) 69.5 % (16.0-70.0); Platelet Count 220 th/mm3 (150-450); Red Blood Count 2.91 mil/mm3 (4.50-5.90); Red Cell Distribution Width 18.7 % (11.6-17.2)
--- NOTE | 2018-05-08 10:49 | P.PNIM ---
Subjective Interval history: Pt still concerned with low bp. get dizzy and weak when standing. Physical Exam Vital signs: Last Vital Signs Temp 98.5 F 05/08/18 08:00 Pulse 93 H 05/08/18 09:00 Resp 14 05/08/18 09:00 BP 109/47 L 05/08/18 08:00 Pulse Ox 96 05/08/18 09:44 Narrative: heart reg lung no wheezing abd s/nt ext right arm incision. sutured. minimal clear drainage trace lower ext edema Results Labs CBC & Chem 7: 05/08/18 08:10 05/07/18 08:30 Assessment and Plan Assessment (1) End stage renal disease: Code(s): N18.6 - End stage renal disease Status: Acute (2) Hypertension: Code(s): I10 - Essential (primary) hypertension Status: Acute (3) Diabetes: Code(s): E11.9 - Type 2 diabetes mellitus without complications Status: Acute Plan: 1) Cardiopulmonary Arrest with successful recussitation - patient was having a routine colonoscopy and while being sedated he had an asystolic episode. - He received 2 rounds of epinephrine and chest compressions were performed. - He was initially intubated on arrival to the ER and then subsequently was extubated. - On April 15 patient again started having respiratory distress and was intubated again. - Patient was extubated on April 21, 2017 and has been doing well. - C (04/25/18) with Dr. Ramos Arredondo - Successful percutaneous coronary intervention with drug-eluting stent to the mid body of the saphenous vein graft to diagonal branch. - ASA, plavix, imdur, lipitor 2) Septic Thrombophlebitis - comgmt with Vascular Surgery and Infectious Disease - Pt taken to the OR by Dr. Meade. & underwent excision of the antecubital veins and a portion of the basilic vein on the right with tissue cultures, irrigation and packing. - Case d/w Dr. Meade (04/27/18) - Zosyn stopped - Zyvox (04/25 - 04/29) - Vancomycin on HD days - Discussed with Dr Blair. Diffucult to dose vanco given the way pt gets his outpt hemodialysis at home. She is recommending zyvoxx. would give last doses of zyvoxx on 05/11 [address] ID recc[address] DR Frye recommended removal of sutures 2 weeks postop which would be 05/10 dc to rehab held. Pt had 1 unit prbc 05/06. His bp also has been lower likely from anemia, volume removal from HD, and the 3 new meds bb/ccb/hydralazine. stopped hydralazine. still low bp. hold cardizem and monitor for afib/rvr. will low imdur from 120mg to 90mg. might need more blood for symptomatic anemia. observe bp again today after above changes. to rehab once bp and anemia stable and pt able to stand and ambulate w/out dizziness. 3) Afib see above 3) ESRD on HD - HD , Wednesday per Dr. Vasquez pt had 4 HD sessions this week. 4) DM2 - SSI 5) Anemia monitor getting epogen 1 unit prbc 05/06 (4) Cardiopulmonary arrest with successful resuscitation: Code(s): I46.9 - Cardiac arrest, cause unspecified Status: Acute (5) Metabolic bone disease: Code(s): E88.9 - Metabolic disorder, unspecified; M90.80 - Osteopathy in diseases classified elsewhere, unspecified site Status: Acute (6) Thrombophlebitis arm: Code(s): I80.8 - Phlebitis and thrombophlebitis of other sites Status: Acute (7) Anemia: Code(s): D64.9 - Anemia, unspecified Status: Acute Plan 1) Cardiopulmonary Arrest with successful recussitation - patient was having a routine colonoscopy and while being sedated he had an asystolic episode. - He received 2 rounds of epinephrine and chest compressions were performed. - He was initially intubated on arrival to the ER and then subsequently was extubated. - On April 15 patient again started having respiratory distress and was intubated again. - Patient was extubated on April 21, 2017 and has been doing well. - [facility] (04/25/18) with Dr. Ramos Arredondo - Successful percutaneous coronary intervention with drug-eluting stent to the mid body of the saphenous vein graft to diagonal branch. - ASA, plavix, imdur, lipitor 2) Septic Thrombophlebitis - comgmt with Vascular Surgery and Infectious Disease - Pt taken to the OR by Dr. Meade. & underwent excision of the antecubital veins and a portion of the basilic vein on the right with tissue cultures, irrigation and packing. - Case d/w Dr. Meade (04/27/18) - Zosyn stopped - Vancomycin stopped 04/24 - Zyvox (04/25 - present) - surgical cultures and pathology are pending 3) Atrial Fibrillation - IV Cardizem stopped - PO Cardizem 4) ESRD on HD - HD , Wednesday per Dr. 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
--- NOTE | 2018-05-08 12:39 | P.PNNP ---
Subjective Interval history: Patient is complaining of dizziness while standing up from a laying position, he can feel his blood pressure drop when standing up. His hemoglobin has dropped a bit to 8.2 from 8.5 yesterday. Blood pressure of 109/47 this morning. He states that yesterday he had an episode of dry heaves and 1 episode of vomiting, watery. He also had some diarrhea yesterday. Denies any vomiting or diarrhea today. He did have breakfast this morning, a bagel with no problems. Denies any bloody stools. No active bleeding at this time. <Jenna Adan - Last Filed: 05/08/18 12:23> Physical Exam Vital signs: Vital Signs 05/07/18 13:07 05/07/18 15:00 05/07/18 16:00 Temperature 98.3 F Pulse Rate 82 82 77 Respiratory Rate 16 14 Blood Pressure 90/42 L Pulse Oximetry 97 05/07/18 17:26 05/07/18 20:00 05/07/18 20:51 Temperature 98.4 F 98.3 F Pulse Rate 82 88 94 H Respiratory Rate 18 16 16 Blood Pressure 93/54 L 101/53 L Pulse Oximetry 97 97 95 05/08/18 00:00 05/08/18 01:07 05/08/18 03:40 Temperature 98.8 F Pulse Rate 94 H 73 Respiratory Rate 16 9 L 15 Blood Pressure 95/55 L Pulse Oximetry 98 05/08/18 04:00 05/08/18 08:00 05/08/18 09:00 Temperature 98.8 F 98.5 F Pulse Rate 86 92 H 93 H Respiratory Rate 16 18 14 Blood Pressure 100/54 L 109/47 L Pulse Oximetry 100 95 05/08/18 09:44 Temperature Pulse Rate Respiratory Rate Blood Pressure Pulse Oximetry 96 Intake & Output 05/07/18 05/08/18 05/08/18 18:59 06:59 18:59 Intake Total 0 / 0 240 / 240 Balance 0 / 0 240 / 240 Weight 112.8 kg Intake: Oral 240 / 240 Other 0 / 0 Other: Date of Last Bowel Movement 05/05/18 05/05/18 05/08/18 # Bowel Movements 1 Narrative: GENERAL: obese middle-aged white male, NAD. SKIN: Warm and dry. Gauze wrap to right mid arm, status post I&D for thrombophlebitis. HEAD: Atraumatic. Normocephalic. EYES: Pupils equal and round. No scleral icterus. No injection or drainage. ENT: No nasal bleeding or discharge. Mucous membranes pink and moist. NECK: Trachea midline. No JVD. CARDIOVASCULAR: Regular rate and rhythm. RESPIRATORY: Regular rate. No use of accessory muscles. Lungs are clear throughout. GASTROINTESTINAL: Abdomen soft, non-tender, nondistended. MUSCULOSKELETAL: Bilateral lower extremity edema. No calf tenderness. NEUROLOGICAL: Awake and alert. Motor grossly within normal limits. PSYCHIATRIC: Appropriate mood and affect. <Jenna Adan - Last Filed: 05/08/18 12:23> Vital signs: Vital Signs 05/07/18 20:00 05/07/18 20:51 05/08/18 00:00 Temperature 98.3 F 98.8 F Pulse Rate 88 94 H 94 H Respiratory Rate 16 16 16 Blood Pressure 101/53 L 95/55 L Pulse Oximetry 97 95 98 05/08/18 01:07 05/08/18 03:40 05/08/18 04:00 Temperature 98.8 F Pulse Rate 73 86 Respiratory Rate 9 L 15 16 Blood Pressure 100/54 L Pulse Oximetry 100 05/08/18 08:00 05/08/18 09:00 05/08/18 09:44 Temperature 98.5 F Pulse Rate 92 H 93 H Respiratory Rate 18 14 Blood Pressure 109/47 L Pulse Oximetry 95 96 05/08/18 12:00 05/08/18 15:00 05/08/18 16:00 Temperature 98.5 F 98.7 F Pulse Rate 93 H 88 85 Respiratory Rate 18 14 18 Blood Pressure 156/87 H 105/61 Pulse Oximetry 97 96 Intake & Output 05/07/18 05/08/18 05/08/18 18:59 06:59 18:59 Intake Total 0 / 0 240 / 240 Balance 0 / 0 240 / 240 Weight 112.8 kg Intake: Oral 240 / 240 Other 0 / 0 Other: Date of Last Bowel Movement 05/05/18 05/05/18 05/08/18 # Bowel Movements 1 <Ailin Vasquez - Last Filed: 05/08/18 17:30> Assessment and Plan - Assessment (1) End stage renal disease Code(s): N18.6 - End stage renal disease Status: Acute Plan: Patient with ESRD, on Home HD. Patient getting dialysis MWF while hospitalized. Patient is an anuric, therefore not a candidate for diuretic treatment for bilateral lower swelling in feet. Has been hypotensive, orthostatic hypotension, dizzy when stands from a laying position. Status/Post blood transfusion, on 05/06. Epogen during dialysis -Avoid Gadolinium. -Monitor fluid and electrolytes. BMP in the a.m. -Encouraged to keep feet elevated above heart -Dialysis tomorrow -Will order SOUTH hose for swelling to bilateral lower extremities and in hopes to also help with hypotension. (2) Hypertension Code(s): I10 - Essential (primary) hypertension Status: Acute Qualifiers: Hypertension type: essential hypertension Qualified Code(s): I10 - Essential (primary) hypertension Plan: Continue to monitor. Has been hypotensive. Hemoglobin 8.2 today from 8.5 yesterday. Cardizem has been discontinued yesterday, Imdur dose was decreased to 90 mg daily from 120 daily No longer on hydralazine currently. Metoprolol not given today. -Continue to monitor -Order SOUTH hose (3) Diabetes Code(s): E11.9 - Type 2 diabetes mellitus without complications Status: Acute Qualifiers: Diabetes mellitus assisted insulin use: unspecified computer tech insulin use status Plan: Monitor blood glucose.Insulin coverage to maintain blood glucose levels between 140 and 180 while hospitalized. (4) Cardiopulmonary arrest with successful resuscitation Code(s): I46.9 - Cardiac arrest, cause unspecified Status: Acute Plan: No complaints of chest pain, or shortness of breath s/p cardiac cath. [facility] 04/25/18 with PCI to SVG. Continue aspirin, Plavix, statin. -Cardiac signed off (5) Metabolic bone disease Code(s): E88.9 - Metabolic disorder, unspecified; M90.80 - Osteopathy in diseases classified elsewhere, unspecified site Status: Acute Plan: Sensipar has been held due to hypocalcemia. PTH level 1954, patient on Calcitriol 0.5 mcg po daily. -Monitor phosphorus intermittently, 6.6 on the 18 -He is on Renvela. -Phosphorus in the a.m. (6) Thrombophlebitis arm Code(s): I80.8 - Phlebitis and thrombophlebitis of other sites Status: Acute Plan: s/p I&D. Kerlix dressing to right mid arm, dry and intact (7) Anemia Code(s): D64.9 - Anemia, unspecified Status: Acute Plan: Continue Epogen with dialysis.. Hemoglobin 8.2 today, status post 1 unit of packed red blood cells on the . -Continue to monitor <Jenna Adan - Last Filed: 05/08/18 12:23> - Assessment (1) End stage renal disease Code(s): N18.6 - End stage renal disease Status: Acute (2) Hypertension Code(s): I10 - Essential (primary) hypertension Status: Acute Qualifiers: Hypertension type: essential hypertension Qualified Code(s): I10 - Essential (primary) hypertension (3) Diabetes Code(s): E11.9 - Type 2 diabetes mellitus without complications Status: Acute Qualifiers: Diabetes mellitus assisted insulin use: unspecified computer tech insulin use status (4) Cardiopulmonary arrest with successful resuscitation Code(s): I46.9 - Cardiac arrest, cause unspecified Status: Acute (5) Metabolic bone disease Code(s): E88.9 - Metabolic disorder, unspecified; M90.80 - Osteopathy in diseases classified elsewhere, unspecified site Status: Acute (6) Thrombophlebitis arm Code(s): I80.8 - Phlebitis and thrombophlebitis of other sites Status: Acute (7) Anemia Code(s): D64.9 - Anemia, unspecified Status: Acute - Attending Attestation I have seen and examined the patient he has blood pressure issues had episode of hypotension and peripheral edema, care discussed with [facility] Agree with above assessment and plan Hemodialysis scheduled for tomorrow Follow-up with Dr. Dixon <Ailin Vasquez - Last Filed: 05/08/18 17:30>
[2018-05-09] MEDS: Isosorbide Mononitrate 60 MG ER 24HR Tablet (Imdur) PO SCH (06:00)
[2018-05-09] MEDS: Isosorbide Mononitrate 30 MG ER 24HR Tablet (Imdur) PO SCH (06:01)
[2018-05-09] MEDS: Insulin NovoLIN Regular Correctional Sugar Inj SQ SCH ×4 (08:00→23:49)
[2018-05-09 09:09] LABS: Baso % (Auto) 0.6 % (0.0-2.0); Eos # (Auto) 0.2 th/mm3 (0.0-0.4); Eos % (Auto) 2.8 % (0.0-4.0); Hematocrit 24.1 % (39.0-51.0); Hemoglobin 7.6 gm/dL (13.0-17.0); Lymph # (Auto) 1.2 th/mm3 (1.0-4.8); Lymph % (Auto) 18.1 % (9.0-44.0); Mean Corpuscular HGB Conc 31.8 % (32.0-36.0); Mean Corpuscular Hemoglobin 27.8 pg (27.0-34.0); Mean Corpuscular Volume 87.4 fL (80.0-100.0); Mono # (Auto) 0.5 th/mm3 (0.0-0.9); Mono % (Auto) 6.9 % (0.0-8.0); Neut # (Auto) 4.9 th/mm3 (1.8-7.7); Neut % (Auto) 71.6 % (16.0-70.0); Platelet Count 181 th/mm3 (150-450); Red Blood Count 2.75 mil/mm3 (4.50-5.90); Red Cell Distribution Width 18.6 % (11.6-17.2); White Blood Count 6.8 th/mm3 (4.0-11.0)
[2018-05-09 09:30] LABS: Carbon Dioxide 27.6 meq/L (21.0-32.0); Phosphorus 6.3 mg/dL (2.5-4.9); Potassium 4.6 meq/L (3.5-5.1)
[2018-05-09] MEDS: Metoprolol Tartrate 25 MG Tablet PO SCH ×2 (09:44→20:55)
--- NOTE | 2018-05-09 12:13 | P.PNNP ---
Subjective Interval history: Patient was seen, was on dialysis, 3K 350 ml/min, UF goal of 1.5 L. Patient gets dialysis MWF. <Leeann Mcgarry - Last Filed: 05/09/18 12:08> Physical Exam Vital signs: Vital Signs 05/08/18 15:00 05/08/18 16:00 05/08/18 19:51 Temperature 98.7 F Pulse Rate 88 102 H 72 Respiratory Rate 14 18 16 Blood Pressure 105/61 Pulse Oximetry 96 05/08/18 20:00 05/09/18 00:00 05/09/18 03:58 Temperature 97.9 F 98.1 F Pulse Rate 89 93 H 67 Respiratory Rate 16 20 16 Blood Pressure 108/97 H 98/56 L Pulse Oximetry 97 98 05/09/18 04:00 05/09/18 08:00 Temperature 98.1 F 97.7 F Pulse Rate 81 99 H Respiratory Rate 18 16 Blood Pressure 137/103 H 80/53 L Pulse Oximetry 97 95 Intake & Output 05/08/18 05/09/18 05/09/18 18:59 06:59 18:59 Intake Total 480 / 480 240 / 240 Output Total 0 / 0 1500 / 1500 Balance 480 / 480 240 / 240 -1500 / -1500 Weight 123 kg Intake: Oral 480 / 480 240 / 240 Other 0 / 0 Output: Urine 0 / 0 Hemodialysis Amount 1500 / 1500 Other: Date of Last Bowel Movement 05/08/18 05/08/18 Narrative: GENERAL: obese middle-aged white male, NAD. SKIN: Warm and dry. Gauze wrap to right mid arm, status post I&D for thrombophlebitis. HEAD: Atraumatic. Normocephalic. EYES: Pupils equal and round. No scleral icterus. No injection or drainage. ENT: No nasal bleeding or discharge. Mucous membranes pink and moist. NECK: Trachea midline. No JVD. CARDIOVASCULAR: Regular rate and rhythm. RESPIRATORY: Regular rate. No use of accessory muscles. Lungs are clear throughout. GASTROINTESTINAL: Abdomen soft, non-tender, nondistended. MUSCULOSKELETAL: Bilateral lower extremity edema. No calf tenderness. NEUROLOGICAL: Awake and alert. Motor grossly within normal limits. PSYCHIATRIC: Appropriate mood and affect. <Leeann Mcgarry - Last Filed: 05/09/18 12:08> Vital signs: Vital Signs 05/09/18 00:00 05/09/18 03:58 05/09/18 04:00 Temperature 98.1 F 98.1 F Pulse Rate 93 H 67 81 Respiratory Rate 20 16 18 Blood Pressure 98/56 L 137/103 H Pulse Oximetry 98 97 05/09/18 08:00 05/09/18 12:00 05/09/18 15:38 Temperature 97.7 F 97.8 F Pulse Rate 99 H 97 H 97 H Respiratory Rate 16 20 18 Blood Pressure 80/53 L 96/45 L Pulse Oximetry 95 94 L 05/09/18 15:39 05/09/18 16:00 Temperature 98.2 F Pulse Rate 96 H Respiratory Rate 16 Blood Pressure 96/52 L Pulse Oximetry 94 L 96 Intake & Output 05/09/18 05/09/18 05/10/18 06:59 18:59 06:59 Intake Total 240 / 240 500 / 500 Output Total 0 / 0 1500 / 1500 Balance 240 / 240 -1000 / -1000 Weight 123 kg Intake: Oral 240 / 240 500 / 500 Output: Urine 0 / 0 Hemodialysis Amount 1500 / 1500 Other: Date of Last Bowel Movement 05/08/18 <Tramaine Dixon - Last Filed: 05/09/18 22:25> Assessment and Plan - Assessment (1) End stage renal disease Code(s): N18.6 - End stage renal disease Status: Acute Plan: Patient with ESRD, on Home HD. Patient getting dialysis MWF while hospitalized. Patient was seen, was on dialysis, 3K 350 ml/min, UF goal of 1.5 L. Avoid Gadolinium. Monitor fluid and electrolytes. Avoid nephrotoxic agents. (2) Hypertension Code(s): I10 - Essential (primary) hypertension Status: Acute Qualifiers: Hypertension type: essential hypertension Qualified Code(s): I10 - Essential (primary) hypertension Plan: Continue to monitor. Has been hypotensive. Imdur dose was decreased. Metoprolol not given today. Continue to monitor (3) Diabetes Code(s): E11.9 - Type 2 diabetes mellitus without complications Status: Acute Qualifiers: Diabetes mellitus vocational examiner insulin use: unspecified vocational examiner insulin use status Plan: Monitor blood glucose.Insulin coverage to maintain blood glucose levels between 140 and 180 while hospitalized. (4) Cardiopulmonary arrest with successful resuscitation Code(s): I46.9 - Cardiac arrest, cause unspecified Status: Acute Plan: s/p cardiac cath. Cardiac signed off (5) Metabolic bone disease Code(s): E88.9 - Metabolic disorder, unspecified; M90.80 - Osteopathy in diseases classified elsewhere, unspecified site Status: Acute Plan: Sensipar has been held due to hypocalcemia. PTH level 1954, patient on Calcitriol 0.5 mcg po daily. Monitor phosphorus intermittently. He is on Renvela. Phosphorus is 6.3. (6) Thrombophlebitis arm Code(s): I80.8 - Phlebitis and thrombophlebitis of other sites Status: Acute Plan: s/p I&D. (7) Anemia Code(s): D64.9 - Anemia, unspecified Status: Acute Plan: Continue Epogen with dialysis.. Hemoglobin 7.6 today, status post 1 unit of packed red blood cells on the . Continue to monitor <Leeann Mcgarry - Last Filed: 05/09/18 12:08> - Assessment (1) End stage renal disease Code(s): N18.6 - End stage renal disease Status: Acute (2) Hypertension Code(s): I10 - Essential (primary) hypertension Status: Acute Qualifiers: Hypertension type: essential hypertension Qualified Code(s): I10 - Essential (primary) hypertension (3) Diabetes Code(s): E11.9 - Type 2 diabetes mellitus without complications Status: Acute Qualifiers: Diabetes mellitus vocational examiner insulin use: unspecified longterm insulin use status (4) Cardiopulmonary arrest with successful resuscitation Code(s): I46.9 - Cardiac arrest, cause unspecified Status: Acute (5) Metabolic bone disease Code(s): E88.9 - Metabolic disorder, unspecified; M90.80 - Osteopathy in diseases classified elsewhere, unspecified site Status: Acute (6) Thrombophlebitis arm Code(s): I80.8 - Phlebitis and thrombophlebitis of other sites Status: Acute (7) Anemia Code(s): D64.9 - Anemia, unspecified Status: Acute - Attending Attestation patient was seen and examined. Agree with above assessment and plan. BP is low. He is also complaining of dizziness. UF goal was 1.5 liters <Tramaine Dixon - Last Filed: 05/09/18 22:25>
[2018-05-09] MEDS: Calcitriol 0.25 MCG Capsule PO SCH (12:46)
[2018-05-09] MEDS: Linezolid 600 MG Tablet PO SCH ×2 (12:47→23:49)
[2018-05-09] MEDS: Vitamin B Complex/Vit C/Folic Tablet PO SCH (12:47)
[2018-05-09] MEDS: Senna/Docusate Sodium 8.6/50 MG Tablet PO SCH ×2 (12:47→23:27)
[2018-05-09] MEDS: predniSONE 5 MG Tablet PO SCH (12:47)
--- NOTE | 2018-05-09 16:32 | P.PNIM ---
Subjective Interval history: SOB improved, but pt c/o dizziness with position change. Physical Exam Vital signs: Last Vital Signs Temp 97.8 F 05/09/18 12:00 Pulse 97 H 05/09/18 15:38 Resp 18 05/09/18 15:38 BP 96/45 L 05/09/18 12:00 Pulse Ox 94 L 05/09/18 15:39 Narrative: heart reg lung no wheezing abd s/nt ext right arm incision. sutured. minimal clear drainage trace lower ext edema Results Labs CBC & Chem 7: 05/09/18 08:30 05/09/18 08:30 Assessment and Plan Assessment (1) End stage renal disease: Code(s): N18.6 - End stage renal disease Status: Acute (2) Hypertension: Code(s): I10 - Essential (primary) hypertension Status: Acute (3) Diabetes: Code(s): E11.9 - Type 2 diabetes mellitus without complications Status: Acute Plan: 1) Cardiopulmonary Arrest with successful recussitation - patient was having a routine colonoscopy and while being sedated he had an asystolic episode. - He received 2 rounds of epinephrine and chest compressions were performed. - He was initially intubated on arrival to the ER and then subsequently was extubated. - On April 15 patient again started having respiratory distress and was intubated again. - Patient was extubated on April 21, 2017 and has been doing well. - [facility] (04/25/18) with Dr. Ramos Arredondo - Successful percutaneous coronary intervention with drug-eluting stent to the mid body of the saphenous vein graft to diagonal branch. - ASA, plavix, imdur, lipitor 2) Septic Thrombophlebitis - comgmt with Vascular Surgery and Infectious Disease - Pt taken to the OR by Dr. Meade. & underwent excision of the antecubital veins and a portion of the basilic vein on the right with tissue cultures, irrigation and packing. - Case d/w Dr. Meade (04/27/18) - Zosyn stopped - Zyvox (04/25 - 04/29) - Vancomycin on HD days - Discussed with Dr Blair. Diffucult to dose vanco given the way pt gets his outpt hemodialysis at home. She is recommending zyvoxx. would give last doses of zyvoxx on 05/[address] Frye recommended removal of sutures 2 weeks postop which would be 05/10 3) Anemia - pt notes prior h/o GIB - Consult GI - anemia likely multifactorial: acute illness, ESRD - likely contributing to pt's hypotension - receiving Epogen - Pt received 1 unit PRBCs (05/06) - transfuse 2 units PRBCs - CBC (05/10) 4) Hypotension - anemia contributing - Recently, 3 new meds bb/ccb/hydralazine. stopped hydralazine. - Hydralzine stopped - Cardizem on hold. Watch for recurrent afib/rvr - imdur decreased from 120mg to 90mg 5) Afib see above 6) ESRD on HD - HD ,, Wednesday per Dr. Vasquez - pt had 4 HD sessions last week - last HD (05/09) 7) ABDIAS - BiPAP at night per Pulmonary Medicine (4) Cardiopulmonary arrest with successful resuscitation: Code(s): I46.9 - Cardiac arrest, cause unspecified Status: Acute (5) Metabolic bone disease: Code(s): E88.9 - Metabolic disorder, unspecified; M90.80 - Osteopathy in diseases classified elsewhere, unspecified site Status: Acute (6) Thrombophlebitis arm: Code(s): I80.8 - Phlebitis and thrombophlebitis of other sites Status: Acute (7) Anemia: Code(s): D64.9 - Anemia, unspecified Status: Acute Plan 1) Cardiopulmonary Arrest with successful recussitation - patient was having a routine colonoscopy and while being sedated he had an asystolic episode. - He received 2 rounds of epinephrine and chest compressions were performed. - He was initially intubated on arrival to the ER and then subsequently was extubated. - On April 15 patient again started having respiratory distress and was intubated again. - Patient was extubated on April 21, 2017 and has been doing well. - [facility] (04/25/18) with Dr. Ramos Arredondo - Successful percutaneous coronary intervention with drug-eluting stent to the mid body of the saphenous vein graft to diagonal branch. - ASA, plavix, imdur, lipitor 2) Septic Thrombophlebitis - comgmt with Vascular Surgery and Infectious Disease - Pt taken to the OR by Dr. Meade. & underwent excision of the antecubital veins and a portion of the basilic vein on the right with tissue cultures, irrigation and packing. - Case d/w Dr. Meade (04/27/18) - Zosyn stopped - Vancomycin stopped 04/24 - Zyvox (04/25 - present) - surgical cultures and pathology are pending 3) Atrial Fibrillation - IV Cardizem stopped - PO Cardizem 4) ESRD on HD - HD , Wednesday per Dr. Vasquez 5) DM2 - SSI Progress Note: Quality VTE Deep Vein Thrombosis/Pulmonary Embolism Present on Admission: No _ (1) Diabetes Qualifiers: Chronic kidney disease stage: Diabetes mellitus complication detail: Diabetes mellitus complication status: Diabetes mellitus termite inspector insulin use : unspecified termite inspector insulin use status Diabetes mellitus macular edema: Diabetes mellitus type: Diabetic retinopathy severity: Laterality: Proliferative retinopathy type: (2) Anemia Qualifiers: Anemia type: Bone marrow failure anemia type: Chronic kidney disease stage : Folate deficiency anemia type: Hemolytic anemia type: Iron deficiency anemia type: Other causes of anemia: Vitamin B12 deficiency anemia type: (3) Hypertension Qualifiers: Hypertension type: essential hypertension Qualified Code(s): I10 - Essential (primary) hypertension
[2018-05-09] MEDS ORDERED: Sodium Chlor 0.9% Inj 250 ML IV.SIG SCH (17:00)
--- NOTE | 2018-05-09 19:33 | P.PN ---
Subjective Interval history: GI workup in progress. Hemoglobin is dropped and he will receive packed red cell transfusion. Dialysis in a.m.. Breathing easy and on O2 at 2 Physical Exam Vital signs: Vital Signs 05/08/18 19:51 05/08/18 20:00 05/09/18 00:00 Temperature 97.9 F 98.1 F Pulse Rate 72 89 93 H Respiratory Rate 16 16 20 Blood Pressure 108/97 H 98/56 L Pulse Oximetry 97 98 05/09/18 03:58 05/09/18 04:00 05/09/18 08:00 Temperature 98.1 F 97.7 F Pulse Rate 67 81 99 H Respiratory Rate 16 18 16 Blood Pressure 137/103 H 80/53 L Pulse Oximetry 97 95 05/09/18 12:00 05/09/18 15:38 05/09/18 15:39 Temperature 97.8 F Pulse Rate 97 H 97 H Respiratory Rate 20 18 Blood Pressure 96/45 L Pulse Oximetry 94 L 94 L 05/09/18 16:00 Temperature 98.2 F Pulse Rate 96 H Respiratory Rate 16 Blood Pressure 96/52 L Pulse Oximetry 96 Intake & Output 05/09/18 05/09/18 05/10/18 06:59 18:59 06:59 Intake Total 240 / 240 500 / 500 Output Total 0 / 0 1500 / 1500 Balance 240 / 240 -1000 / -1000 Weight 123 kg Intake: Oral 240 / 240 500 / 500 Output: Urine 0 / 0 Hemodialysis Amount 1500 / 1500 Other: Date of Last Bowel Movement 05/08/18 Narrative: GENERAL: obese middle-aged white male, NAD. SKIN: Warm and dry. Gauze wrap to right mid arm, status post I&D for thrombophlebitis. HEAD: Atraumatic. Normocephalic. EYES: Pupils equal and round. No scleral icterus. No injection or drainage. ENT: No nasal bleeding or discharge. Mucous membranes pink and moist. NECK: Trachea midline. No JVD. CARDIOVASCULAR: Regular rate and rhythm. RESPIRATORY: Few basal crackles and occasional wheezes. GASTROINTESTINAL: Abdomen soft, non-tender, nondistended. MUSCULOSKELETAL: 1+ bilateral lower extremity edema. No calf tenderness. NEUROLOGICAL: Awake and alert. Motor grossly within normal limits. PSYCHIATRIC: Appropriate mood and affect. Results - Labs CBC & Chem 7: 05/09/18 08:30 05/09/18 08:30 Laboratory Results - last 24 hr 05/08/18 05/09/18 05/09/18 22:03 08:10 08:30 WBC 6.8 RBC 2.75 L Hgb 7.6 L Hct 24.1 L MCV 87.4 MCH 27.8 MCHC 31.8 L RDW 18.6 H Plt Count 181 MPV 8.0 Neut % (Auto) 71.6 H Lymph % (Auto) 18.1 Lamb % (Auto) 6.9 Eos % (Auto) 2.8 Baso % (Auto) 0.6 Neut # (Auto) 4.9 Lymph # (Auto) 1.2 Lamb # (Auto) 0.5 Eos # (Auto) 0.2 Baso # (Auto) 0.0 WBC Differential . Differential Comment Auto diff final Sodium Potassium Chloride Carbon Dioxide Anion Gap BUN Creatinine Estimated GFR POC Glucose 139 H 108 Random Glucose Calcium Phosphorus 05/09/18 05/09/18 05/09/18 08:30 11:35 17:26 WBC RBC Hgb Hct MCV MCH MCHC RDW Plt Count MPV Neut % (Auto) Lymph % (Auto) Lamb % (Auto) Eos % (Auto) Baso % (Auto) Neut # (Auto) Lymph # (Auto) Lamb # (Auto) Eos # (Auto) Baso # (Auto) WBC Differential Differential Comment Sodium 137 Potassium 4.6 Chloride 99 Carbon Dioxide 27.6 Anion Gap 10 BUN 51 H Creatinine 8.41 H Estimated GFR 7 L POC Glucose 94 164 H Random Glucose 87 Calcium 9.0 D Phosphorus 6.3 H Assessment and Plan - Assessment (1) Respiratory failure Code(s): J96.90 - Respiratory failure, unspecified, unspecified whether with hypoxia or hypercapnia Status: Acute (2) Metabolic bone disease Code(s): E88.9 - Metabolic disorder, unspecified; M90.80 - Osteopathy in diseases classified elsewhere, unspecified site Status: Acute (3) Supraventricular arrhythmia Code(s): I49.9 - Cardiac arrhythmia, unspecified Status: Acute (4) End stage renal disease Code(s): N18.6 - End stage renal disease Status: Acute (5) Hypertension Code(s): I10 - Essential (primary) hypertension Status: Acute (6) Diabetes Code(s): E11.9 - Type 2 diabetes mellitus without complications Status: Acute (7) End stage renal disease on dialysis Code(s): N18.6 - End stage renal disease; Z99.2 - Dependence on renal dialysis Status: Acute (8) Cardiopulmonary arrest with successful resuscitation Code(s): I46.9 - Cardiac arrest, cause unspecified Status: Acute (9) End stage renal disease on dialysis Code(s): N18.6 - End stage renal disease; Z99.2 - Dependence on renal dialysis Status: Acute - Plan 1 Continue O2 3 L N /C daytime and at bedtime 2. Continue CPAP at bedtime with oxygen 28% 3. CBC BMP in a.m. 4. Continue antibiotics per ID 5. DuoNeb nebs 4 times daily. 6. Arrange home O2 at 2 L 7. GI evaluation for GI bleed 8. PT for activity (5) Hypertension Qualifiers: Hypertension type: essential hypertension Qualified Code(s): I10 - Essential (primary) hypertension (6) Diabetes Qualifiers: Diabetes mellitus chcf insulin use: unspecified buttermaker insulin use status
[2018-05-10] MEDS: Isosorbide Mononitrate 30 MG ER 24HR Tablet (Imdur) PO SCH (07:06)
[2018-05-10] MEDS: Isosorbide Mononitrate 60 MG ER 24HR Tablet (Imdur) PO SCH (07:06)
[2018-05-10] MEDS: Linezolid 600 MG Tablet PO SCH ×2 (08:24→20:07)
[2018-05-10] MEDS: predniSONE 5 MG Tablet PO SCH (08:25)
[2018-05-10] MEDS: Vitamin B Complex/Vit C/Folic Tablet PO SCH (08:25)
[2018-05-10] MEDS: Calcitriol 0.25 MCG Capsule PO SCH (08:25)
[2018-05-10] MEDS: Metoprolol Tartrate 25 MG Tablet PO SCH ×2 (08:26→20:09)
[2018-05-10] MEDS: Senna/Docusate Sodium 8.6/50 MG Tablet PO SCH ×3 (08:26→20:11)
[2018-05-10] MEDS: Insulin NovoLIN Regular Correctional Sugar Inj SQ SCH ×4 (08:26→20:10)
--- NOTE | 2018-05-10 09:02 | P.PNIM ---
Subjective Interval history: Pt c/o continued dizziness with position change or ambulation. Physical Exam Vital signs: Last Vital Signs Temp 98.1 F 05/10/18 08:00 Pulse 91 H 05/10/18 08:00 Resp 16 05/10/18 08:00 BP 105/57 L 05/10/18 08:00 Pulse Ox 98 05/10/18 08:00 Narrative: heart reg lung no wheezing abd s/nt ext right arm incision. sutured. minimal clear drainage trace lower ext edema Results Labs CBC & Chem 7: 05/10/18 11:23 05/10/18 08:51 Assessment and Plan Assessment (1) End stage renal disease: Code(s): N18.6 - End stage renal disease Status: Acute (2) Hypertension: Code(s): I10 - Essential (primary) hypertension Status: Acute (3) Diabetes: Code(s): E11.9 - Type 2 diabetes mellitus without complications Status: Acute Plan: 1) Cardiopulmonary Arrest with successful recussitation - patient was having a routine colonoscopy and while being sedated he had an asystolic episode. - He received 2 rounds of epinephrine and chest compressions were performed. - He was initially intubated on arrival to the ER and then subsequently was extubated. - On April 15 patient again started having respiratory distress and was intubated again. - Patient was extubated on April 21, 2017 and has been doing well. - C (04/25/18) with Dr. Ramos Arredondo - Successful percutaneous coronary intervention with drug-eluting stent to the mid body of the saphenous vein graft to diagonal branch. - ASA, plavix, imdur, lipitor 2) Septic Thrombophlebitis - comgmt with Vascular Surgery and Infectious Disease - Pt taken to the OR by Dr. Meade. & underwent excision of the antecubital veins and a portion of the basilic vein on the right with tissue cultures, irrigation and packing. - Case d/w Dr. Meade (04/27/18) - Zosyn stopped - Zyvox (04/25 - 04/29) - Vancomycin on HD days - Discussed with Dr Blair. Diffucult to dose vanco given the way pt gets his outpt hemodialysis at home. She is recommending zyvoxx. would give last doses of zyvoxx on 05/[address] Frye recommended removal of sutures 2 weeks postop which would be 05/10 3) Anemia - pt notes prior h/o GIB - Consult GI - anemia likely multifactorial: acute illness, ESRD - likely contributing to pt's hypotension - receiving Epogen - Pt received 1 unit PRBCs (05/06) - transfused 2 units PRBCs (05/10) - Hg 9.6 (05/10) - CBC in AM - appreciate input from GI - EGD once cleared by Cardiology. Case d/w Dr. Arredondo (05/10). Cardiology will consult. 4) Hypotension - anemia contributing - Recently, 3 new meds bb/ccb/hydralazine. stopped hydralazine. - Hydralzine stopped - Cardizem on hold. Watch for recurrent afib/rvr - imdur decreased from 120mg to 90mg --> decrease to 60mg daily 5) Afib see above 6) ESRD on HD - HD ,, Wednesday per Dr. Vasquez - pt had 4 HD sessions last week - last HD (05/09) 7) ABDIAS - BiPAP at night per Pulmonary Medicine (4) Cardiopulmonary arrest with successful resuscitation: Code(s): I46.9 - Cardiac arrest, cause unspecified Status: Acute (5) Metabolic bone disease: Code(s): E88.9 - Metabolic disorder, unspecified; M90.80 - Osteopathy in diseases classified elsewhere, unspecified site Status: Acute (6) Thrombophlebitis arm: Code(s): I80.8 - Phlebitis and thrombophlebitis of other sites Status: Acute (7) Anemia: Code(s): D64.9 - Anemia, unspecified Status: Acute Plan 1) Cardiopulmonary Arrest with successful recussitation - patient was having a routine colonoscopy and while being sedated he had an asystolic episode. - He received 2 rounds of epinephrine and chest compressions were performed. - He was initially intubated on arrival to the ER and then subsequently was extubated. - On April 15 patient again started having respiratory distress and was intubated again. - Patient was extubated on April 21, 2017 and has been doing well. - [facility] (04/25/18) with Dr. Ramos Arredondo - Successful percutaneous coronary intervention with drug-eluting stent to the mid body of the saphenous vein graft to diagonal branch. - ASA, plavix, imdur, lipitor 2) Septic Thrombophlebitis - comgmt with Vascular Surgery and Infectious Disease - Pt taken to the OR by Dr. Meade. & underwent excision of the antecubital veins and a portion of the basilic vein on the right with tissue cultures, irrigation and packing. - Case d/w Dr. Meade (04/27/18) - Zosyn stopped - Vancomycin stopped 04/24 - Zyvox (04/25 - present) - surgical cultures and pathology are pending 3) Atrial Fibrillation - IV Cardizem stopped - PO Cardizem 4) ESRD on HD - HD ,, Wednesday per Dr. 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
[2018-05-10 09:12] LABS: Baso % (Auto) 0.7 % (0.0-2.0); Eos # (Auto) 0.2 th/mm3 (0.0-0.4); Hematocrit 28.6 % (39.0-51.0); Hemoglobin 9.2 gm/dL (13.0-17.0); Lymph # (Auto) 1.3 th/mm3 (1.0-4.8); Lymph % (Auto) 17.8 % (9.0-44.0); Mean Corpuscular HGB Conc 32.4 % (32.0-36.0); Mean Corpuscular Hemoglobin 28.2 pg (27.0-34.0); Mean Corpuscular Volume 87.1 fL (80.0-100.0); Mean Platelet Volume 8.2 fL (7.0-11.0); Mono # (Auto) 0.6 th/mm3 (0.0-0.9); Mono % (Auto) 8.4 % (0.0-8.0); Neut % (Auto) 70.1 % (16.0-70.0); Platelet Count 164 th/mm3 (150-450); Red Blood Count 3.28 mil/mm3 (4.50-5.90); Red Cell Distribution Width 18.4 % (11.6-17.2); White Blood Count 7.2 th/mm3 (4.0-11.0)
[2018-05-10 09:40] LABS: Calcium 9.5 mg/dL (8.5-10.1); Carbon Dioxide 29.3 meq/L (21.0-32.0); Potassium 4.9 meq/L (3.5-5.1)
--- NOTE | 2018-05-10 11:17 | P.PNNP ---
Subjective Interval history: Patient was seen, no distress. Patient gets dialysis MWF, 1.5 L removed in UF yesterday. s/p 2 units PRBCs yesterday, Hgb 9.2. GI consulted. <Leeann Mcgarry - Last Filed: 05/10/18 11:14> Physical Exam Vital signs: Vital Signs 05/09/18 12:00 05/09/18 15:38 05/09/18 15:39 Temperature 97.8 F Pulse Rate 97 H 97 H Respiratory Rate 20 18 Blood Pressure 96/45 L Pulse Oximetry 94 L 94 L 05/09/18 16:00 05/09/18 20:00 05/09/18 21:19 Temperature 98.2 F 99 F Pulse Rate 96 H 97 H 101 H Respiratory Rate 16 17 20 Blood Pressure 96/52 L 88/58 L Pulse Oximetry 96 97 96 05/09/18 22:51 05/09/18 23:20 05/10/18 00:00 Temperature 98.7 F 99 F 97.9 F Pulse Rate 96 H 97 H 100 H Respiratory Rate 15 14 15 Blood Pressure 92/47 L 84/47 L 98/53 L Pulse Oximetry 95 05/10/18 03:33 05/10/18 04:00 05/10/18 05:09 Temperature 98.8 F 98.8 F Pulse Rate 91 H 93 H 94 H Respiratory Rate 18 18 Blood Pressure 158/82 H 158/88 H Pulse Oximetry 94 L 94 L 05/10/18 08:00 Temperature 98.1 F Pulse Rate 87 Respiratory Rate 16 Blood Pressure 105/57 L Pulse Oximetry 98 Intake & Output 05/09/18 05/10/18 05/10/18 18:59 06:59 18:59 Intake Total 500 / 500 0 / 0 Output Total 1500 / 1500 Balance -1000 / -1000 0 / 0 Weight 118.4 kg Intake: Oral 500 / 500 Intake (Blood Product) Amt 0 / 0 Rbc As-3 Leukoreduced Unit 0 / 0 [id number] Rbc As-3 Leukoreduced Unit 0 / 0 [id number] Output: Hemodialysis Amount 1500 / 1500 Other: # Voids 0 Date of Last Bowel Movement 05/08/18 Narrative: GENERAL: obese middle-aged white male, NAD. SKIN: Warm and dry. Gauze wrap to right mid arm, status post I&D for thrombophlebitis. HEAD: Atraumatic. Normocephalic. EYES: EOMI. ENT: No nasal bleeding or discharge. Mucous membranes pink and moist. NECK: Trachea midline. No JVD. CARDIOVASCULAR: Regular rate and rhythm. RESPIRATORY: No respiratory distress, on O2 nasal cannula. GASTROINTESTINAL: Abdomen soft, non-tender, nondistended. MUSCULOSKELETAL: 1+ bilateral lower extremity edema. No calf tenderness. NEUROLOGICAL: Awake and alert. PSYCHIATRIC: Appropriate mood and affect. <Leeann Mcgarry - Last Filed: 05/10/18 11:14> Vital signs: Vital Signs 05/11/18 16:00 05/11/18 20:00 05/11/18 23:33 Temperature 99.5 F Pulse Rate 92 H 109 H 78 Respiratory Rate 16 16 Blood Pressure 112/54 L Pulse Oximetry 91 L 05/12/18 00:00 05/12/18 04:00 05/12/18 04:42 Temperature 98.5 F 98.6 F Pulse Rate 92 H 88 73 Respiratory Rate 16 16 16 Blood Pressure 104/51 L 90/49 L Pulse Oximetry 92 L 96 05/12/18 08:00 05/12/18 10:41 05/12/18 11:55 Temperature 97.5 F L 98.2 F Pulse Rate 87 94 H Respiratory Rate 18 16 Blood Pressure 96/51 L 123/56 L Pulse Oximetry 96 96 95 Intake & Output 05/11/18 05/12/18 05/12/18 18:59 06:59 18:59 Intake Total 400 / 400 240 / 240 Output Total 300 / 300 1999 Balance 100 / 100 -1760 / -1760 Weight 123 kg Intake: IV 200 / 200 LR 1000 mL Inj 1,000 ML @ 30 0 / 0 mls/hr IV.SIG .Q24H DOMENICO Rx#: [id number] NS Inj 500 ML @ 30 mls/hr IV. 200 / 200 SIG .Q10H DOMENICO Rx#:[id number] Oral 240 / 240 Anesthesia Amount 200 / 200 Output: Urine 0 / 0 Emesis 300 / 300 Hemodialysis Amount 1999 Other: Date of Last Bowel Movement 05/10/18 05/10/18 <Tramaine Dixon - Last Filed: 05/12/18 13:52> Assessment and Plan - Assessment (1) End stage renal disease Code(s): N18.6 - End stage renal disease Status: Acute Plan: Patient with ESRD, on Home HD. Patient getting dialysis MWF while hospitalized. Patient was dialyzed yesterday , 1.5 L removed in UF. Avoid Gadolinium. Monitor fluid and electrolytes. Avoid nephrotoxic agents. (2) Hypertension Code(s): I10 - Essential (primary) hypertension Status: Acute Qualifiers: Hypertension type: essential hypertension Qualified Code(s): I10 - Essential (primary) hypertension Plan: Continue to monitor. Has been hypotensive. (3) Diabetes Code(s): E11.9 - Type 2 diabetes mellitus without complications Status: Acute Qualifiers: Diabetes mellitus fdc insulin use: unspecified fdc insulin use status Plan: Monitor blood glucose.Insulin coverage to maintain blood glucose levels between 140 and 180 while hospitalized. (4) Cardiopulmonary arrest with successful resuscitation Code(s): I46.9 - Cardiac arrest, cause unspecified Status: Acute Plan: s/p cardiac cath. Cardiac signed off (5) Metabolic bone disease Code(s): E88.9 - Metabolic disorder, unspecified; M90.80 - Osteopathy in diseases classified elsewhere, unspecified site Status: Acute Plan: Sensipar has been held due to hypocalcemia. PTH level 1954, patient on Calcitriol 0.5 mcg po daily. Monitor phosphorus intermittently. He is on Renvela. Phosphorus is 6.3. (6) Thrombophlebitis arm Code(s): I80.8 - Phlebitis and thrombophlebitis of other sites Status: Acute Plan: s/p I&D. (7) Anemia Code(s): D64.9 - Anemia, unspecified Status: Acute Plan: Continue Epogen with dialysis.. s/p 2 units PRBCs yesterday, Hgb 9.2. GI consulted. 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 Agree with above assessment and plan. <Tramaine Dixon - Last Filed: 05/12/18 13:52>
[2018-05-10 11:46] LABS: Hematocrit 29.8 % (39.0-51.0); Hemoglobin 9.6 gm/dL (13.0-17.0)
--- NOTE | 2018-05-10 15:43 | P.CONGI ---
History of Present Illness Consult date: 05/10/18 Consult reason: Anemia with history of GI bleed Chief complaint: Cardiopulmonary arrest w/ rosc, hypocalcemia, History of Present Illness: This is a very pleasant 57-year-old male patient who was initially admitted for cardiac arrest after having his colonoscopy done at [place]. Patient was resuscitated and was vented for 2 weeks. Currently patient is doing well and is just using 2 L nasal cannula. Patient has significant medical comorbidities including end-stage renal disease on hemodialysis status post renal transplant in 2004 coronary artery disease with CABG in 2003 and had cardiac stenting diabetes mellitus. 3 years ago patient had EGD with 5 gastric in duodenal ulcers found. Surgical history includes PTCA 2003 2009 with cardiac stenting CABG 2003 post renal transplant 2004 and explore laparotomy in the patient does not recall the reason why. Patient reports of reflux or dyspepsia and takes Protonix.prior to admission patient does not have any abdominal or gastrointestinal issues. He did felt nauseated yesterday and the nausea is less as of today and had tolerated his meals. Patient had bowel movement today and denies any blood in the stool or bright red blood per rectum.patient recalled that prior to his colonoscopy 2 weeks ago patient noticed that his stool is black.subsequent stools are getting darker in color hence his colonoscopy. Patient is also back on having hemodialysis. our service is consulted for anemia with history of GI bleeding. Review of Systems All other systems reviewed negative except as stated in HPI PMFSH - History History Provided By: Patient, Medical Record - Medical History Medical History: Medical History (Last Reviewed 05/07/18 @ 08:06 by Salena Gentile) Colonoscopy planned HTN (hypertension) AVF (arteriovenous fistula) Abnormal biopsy of kidney Diabetes mellitus Erosive esophagitis GERD (gastroesophageal reflux disease) History of fracture Hx of skin malignancy Hypercholesterolemia Kidney transplant failure Obesity Smoking history Transfusion history - Surgical History Surgical History: Surgical History (Last Reviewed 05/07/18 @ 08:06 by Salena Gentile) H/O exploratory laparotomy Hx of CABG Hx of appendectomy Kidney transplant recipient S/P PTCA (percutaneous transluminal coronary angioplasty) - Family History Family History: Family History (Last Reviewed 05/07/18 @ 08:06 by Salena Gentile) Father Emphysema of lung Grandparent Kidney disease Breast cancer - Tobacco History Second Hand Smoke Exposure: Yes Tobacco Use In Past 30 Days: No Smoking Status: Former smoker Tobacco Type: Cigarettes Packs Per Day: 1 Years Smoked: 20 Smoking End Date: 2003 - Alcohol History How Often Do You Have a Drink Containing Alcohol: Monthly or less - Substance Use History Substance History: No History of Abuse - Travel History History of Recent Travel: No Recent Travel in the [place] Within the Last 8 Weeks: No Recent Travel Out of the Country Within the Last 8 Weeks: No - Immunization History Tetanus Immunization: Unsure Hx Influenza Vaccine This Season: Yes Medications and Allergies Active Medications: Active Medications Acetaminophen (Tylenol) 325 mg PO Q4H PRN PRN Reason: PAIN SCALE 1 TO 2 Hydrocodone Bitart/Acetaminophen ([place] 10/325) 1 tab PO Q4H PRN PRN Reason: PAIN SCALE 6 TO 10 Last Admin: 05/10/18 12:37 Dose: 1 tab Albuterol (Duoneb Neb (Chel)) 1 ampul NEB Q6HR NEB CHEL Last Admin: 05/10/18 12:04 Dose: 1 ampul Albuterol (Duoneb Neb (Prn)) 1 ampul NEB Q2HR NEB PRN PRN Reason: WHEEZING Last Admin: 05/05/18 08:42 Dose: 1 ampul Aspirin (Ecotrin) 81 mg PO DAILY [facility] Last Admin: 05/10/18 08:26 Dose: 81 mg Atorvastatin Calcium (Lipitor) 80 mg PO HS [facility] Last Admin: 05/09/18 20:55 Dose: 80 mg Bisacodyl (Dulcolax Supp) 10 mg RECTAL DAILY PRN PRN Reason: SEVERE CONSITIPATION Calcitriol (Rocaltrol) 0.5 mcg PO DAILY [facility] Last Admin: 05/10/18 08:25 Dose: 0.5 mcg Clopidogrel Bisulfate (Plavix) 75 mg PO DAILY [facility] Last Admin: 05/10/18 08:25 Dose: 75 mg Dextrose (D50w Vial) 50 ml IV.PUSH UNSCH PRN PRN Reason: PER HYPOGLYCEMIA PROTOCOL Diphenhydramine HCl (Benadryl) 25 mg PO UNSCH PRN PRN Reason: SEE LABEL COMMENTS Epoetin Gian (Epogen Inj) 14,000 unit IV.PUSH UNSCH PRN PRN Reason: SEE LABEL COMMENTS Last Admin: 05/09/18 11:48 Dose: 14,000 unit Gelatin (Gelfoam 12 Mm/7 Mm Topical) 1 foam TOPICAL PRN PRN PRN Reason: help stop bleeding from site Last Admin: 05/04/18 11:25 Dose: 1 foam Gentamicin Sulfate (Gentamicin Inj) 20 mg OTHER WITH DIALYSIS PRN PRN Reason: Dwell Gentamycin Lock Glucagon (Glucagon Inj) 1 mg OTHER PRN PRN PRN Reason: for Hypoglycemia Protocol Heparin Sodium (Porcine) (Heparin Inj) 8,000 units OTHER WITH DIALYSIS PRN PRN Reason: for machine prime Heparin Sodium (Porcine) (Heparin Inj) 1,000 units OTHER WITH DIALYSIS PRN PRN Reason: Dwell Heparin to Fill Catheter Albumin Human (Flexbumin 25% Inj) 100 mls @ 60 mls/hr IV.SIG WITH DIALYSIS PRN PRN Reason: hypotension / volume replace Last Infusion: 04/15/18 09:14 Dose: Infused Sodium Chloride (Ns Inj) 1,000 mls @ 0 mls/hr OTHER .Q0M PRN PRN Reason: for prime and rinse back Sodium Chloride (Ns Inj) 1,000 mls @ 200 mls/hr OTHER .Q5H PRN PRN Reason: for dialyzer flush PRN Sodium Chloride (Ns Inj) 1,000 mls @ 0 mls/hr IV.CONT .Q0M PRN PRN Reason: hypotension / volume replace Propofol (Diprivan 1000 Mg/100 Ml Inj) 1,000 mg in 100 mls @ 3.708 mls/hr IV.CONT TITRATE PRN; Protocol PRN Reason: Per Protocol Last Titration: 04/21/18 09:30 Dose: 0 mcg/kg/min, 0 mls/hr Insulin Human Regular (Novolin R Correctional Sugar Inj) 0 units SQ ACHS CHEL; Protocol Last Admin: 05/10/18 12:37 Dose: Not Given Isosorbide Mononitrate (Imdur) 30 mg PO DAILY@0700 [facility] Last Admin: 05/10/18 07:06 Dose: 30 mg Isosorbide Mononitrate (Imdur) 60 mg PO DAILY@0700 [facility] Last Admin: 05/10/18 07:06 Dose: 60 mg Lactulose (Lactulose Liq) 30 ml PO DAILY PRN PRN Reason: SEVERE CONSITIPATION Last Admin: 04/15/18 01:42 Dose: 30 ml Linezolid (Zyvox) 600 mg PO Q12HR [facility] Stop: 05/11/18 23:59 Last Admin: 05/10/18 08:24 Dose: 600 mg Mannitol (Mannitol Inj) 12.5 gm IV.PUSH UNSCH PRN PRN Reason: hypotension / volume replace Metoprolol Tartrate (Lopressor) 25 mg PO BID [facility] Last Admin: 05/10/18 08:26 Dose: Not Given Nitroglycerin (Nitrostat Sl) 0.4 mg SL Q5M PRN PRN Reason: CHEST PAIN Last Admin: 04/28/18 22:17 Dose: 0.4 mg Ondansetron HCl (Zofran Inj) 4 mg IV.PUSH Q6H PRN PRN Reason: NAUSEA OR VOMITING Last Admin: 05/08/18 08:10 Dose: 4 mg Pantoprazole Sodium (Protonix) 40 mg PO DAILY [facility] Last Admin: 05/10/18 08:25 Dose: 40 mg Prednisone (Deltasone) 5 mg PO DAILY [facility] Last Admin: 05/10/18 08:25 Dose: 5 mg Senna/Docusate Sodium (Maribel-Colace) 1 tab PO BID [facility] Last Admin: 05/10/18 08:26 Dose: Not Given Sennosides (Senokot) 17.2 mg PO Q12H PRN PRN Reason: Moderate Constipation Sevelamer Carbonate (Renvela) 2,400 mg PO TIDAC [facility] Last Admin: 05/10/18 12:37 Dose: 2,400 mg Sodium Chloride (Ns Flush) 2 ml IV.FLUSH BID [facility] Last Admin: 05/10/18 08:26 Dose: 2 ml Sodium Chloride (Ns Flush) 2 ml IV.FLUSH PRN PRN PRN Reason: FLUSH AFTER USING IV ACCESS Sodium Chloride (Ns Flush) 5 ml IV.FLUSH PRN PRN PRN Reason: flush each lumen during HD Vitamin B Complex/Vit C/Folic Acid (Nephrocaps) 1 tab PO DAILY [facility] Last Admin: 05/10/18 08:25 Dose: 1 tab Allergies Allergy/AdvReac Type Severity Reaction Status Date / Time No Known Allergies Allergy Verified 04/11/18 10:33 Home Medications Medication Instructions Recorded Confirmed Type insulin glargine [Lantus U-100 25 unit SUB-Q HS 11/10/17 04/11/18 History Insulin] prednisone 5 mg PO DAILY 11/10/17 04/11/18 History Exam Vital signs: Vital Signs 05/09/18 15:38 02/25/19 15:39 05/09/18 16:00 Temperature 98.2 F Pulse Rate 97 H 96 H Respiratory Rate 18 16 Blood Pressure 96/52 L Pulse Oximetry 94 L 96 05/09/18 20:00 05/09/18 21:19 05/09/18 22:51 Temperature 99 F 98.7 F Pulse Rate 97 H 101 H 96 H Respiratory Rate 17 20 15 Blood Pressure 88/58 L 92/47 L Pulse Oximetry 97 96 05/09/18 23:20 05/10/18 00:00 05/10/18 03:33 Temperature 99 F 97.9 F 98.8 F Pulse Rate 97 H 100 H 91 H Respiratory Rate 14 15 Blood Pressure 84/47 L 98/53 L 158/82 H Pulse Oximetry 95 94 L 05/10/18 04:00 05/10/18 05:09 05/10/18 08:00 Temperature 98.8 F 98.1 F Pulse Rate 93 H 94 H 87 Respiratory Rate 18 18 16 Blood Pressure 158/88 H 105/57 L Pulse Oximetry 94 L 98 05/10/18 12:00 05/10/18 12:06 Temperature 97.8 F Pulse Rate 102 H Respiratory Rate 18 Blood Pressure 95/49 L Pulse Oximetry 94 L 99 Intake & Output 05/09/18 05/10/18 05/10/18 18:59 06:59 18:59 Intake Total 500 / 500 0 / 0 Output Total 1500 / 1500 Balance -1000 / -1000 0 / 0 Weight 118.4 kg Intake: Oral 500 / 500 Intake (Blood Product) Amt 0 / 0 Rbc As-3 Leukoreduced Unit 0 / 0 [id number] Rbc As-3 Leukoreduced Unit 0 / 0 [id number] Output: Hemodialysis Amount 1500 / 1500 Other: # Voids 0 Date of Last Bowel Movement 05/08/18 - Constitutional no acute distress, morbidly obese - Routine HEENT Exam Head: Present: normocephalic - Routine Neck Exam Present: supple - Routine Respiratory Exam Present: decreased breath sounds, rales, rhonchi - Routine Cardiovascular Exam Present: RRR, S1, S2 Comments: Midsternal surgical scar from CABG 2003 - Routine Abdominal Exam Present: soft, normoactive bowel sounds, distended, surgical scars. Absent: tenderness Comments: Patient had prior exploratory lap 1970s - Routine Skin Exam Present: intact - Routine Neurological Exam Present: alert, oriented X3 Results - Labs CBC & Chem 7: 05/10/18 11:23 05/10/18 08:51 Labs: Laboratory Results - last 24 hr 05/09/18 05/09/18 05/09/18 17:26 19:55 23:49 WBC RBC Hgb Hct MCV MCH MCHC RDW Plt Count MPV Neut % (Auto) Lymph % (Auto) [place] % (Auto) Eos % (Auto) Baso % (Auto) Neut # (Auto) Lymph # (Auto) [place] # (Auto) Eos # (Auto) Baso # (Auto) WBC Differential Differential Comment Sodium Potassium Chloride Carbon Dioxide Anion Gap BUN Creatinine Estimated GFR POC Glucose 164 H 149 H Random Glucose Calcium Blood Type O Positive Blood Type Recheck Not needed Antibody Screen Negative MTS Gel Crossmatch See Detail Bld Prod Order Comment 05/10/18 05/10/18 05/10/18 07:36 08:51 08:51 WBC 7.2 RBC 3.28 L Hgb 9.2 L Hct 28.6 L MCV 87.1 MCH 28.2 MCHC 32.4 RDW 18.4 H Plt Count 164 MPV 8.2 Neut % (Auto) 70.1 H Lymph % (Auto) 17.8 [place] % (Auto) 8.4 H Eos % (Auto) 3.0 Baso % (Auto) 0.7 Neut # (Auto) 5.0 Lymph # (Auto) 1.3 [place] # (Auto) 0.6 Eos # (Auto) 0.2 Baso # (Auto) 0.0 WBC Differential . Differential Comment Auto diff final Sodium 139 Potassium 4.9 Chloride 99 Carbon Dioxide 29.3 Anion Gap 11 BUN 38 H Creatinine 6.30 H Estimated GFR 9 L POC Glucose 109 Random Glucose 72 L Calcium 9.5 Blood Type Blood Type Recheck Antibody Screen MTS Gel Crossmatch Bld Prod Order Comment 05/10/18 05/10/18 11:23 12:36 WBC RBC Hgb 9.6 L Hct 29.8 L MCV MCH MCHC RDW Plt Count MPV Neut % (Auto) Lymph % (Auto) [place] % (Auto) Eos % (Auto) Baso % (Auto) Neut # (Auto) Lymph # (Auto) [place] # (Auto) Eos # (Auto) Baso # (Auto) WBC Differential Differential Comment Sodium Potassium Chloride Carbon Dioxide Anion Gap BUN Creatinine Estimated GFR POC Glucose 133 H Random Glucose Calcium Blood Type Blood Type Recheck Antibody Screen MTS Gel Crossmatch Bld Prod Order Comment Assessment and Plan (1) History of ulcer disease Status: Acute Code(s): Z87.898 - Personal history of other specified conditions (2) CAD (coronary artery disease) Status: Acute Code(s): I25.10 - Atherosclerotic heart disease of [place] coronary artery without angina pectoris (3) Afib Status: Acute Code(s): I48.91 - Unspecified atrial fibrillation (4) Anemia Status: Acute Code(s): D64.9 - Anemia, unspecified (5) Supraventricular arrhythmia Status: Acute Code(s): I49.9 - Cardiac arrhythmia, unspecified (6) End stage renal disease on dialysis Status: Acute Code(s): N18.6 - End stage renal disease; Z99.2 - Dependence on renal dialysis - Plan 05/10/2018 This is a very pleasant 57-year-old male patient who was initially admitted for cardiac arrest after having his colonoscopy done at [place]. Patient was resuscitated and was vented for 2 weeks. Currently patient is doing well and is just using 2 L nasal cannula. Patient has significant medical comorbidities including end-stage renal disease on hemodialysis status post renal transplant in 2004 coronary artery disease with CABG in 2003 and had cardiac stenting diabetes mellitus. 3 years ago patient had EGD with 5 gastric in duodenal ulcers found. Surgical history includes PTCA 2003 2009 with cardiac stenting CABG 2003 post renal transplant 2004 and explore laparotomy in the patient does not recall the reason why. Patient reports of reflux or dyspepsia and takes Protonix.prior to admission patient does not have any abdominal or gastrointestinal issues. He did felt nauseated yesterday and the nausea is less as of today and had tolerated his meals. Patient had bowel movement today and denies any blood in the stool or bright red blood per rectum.patient recalled that prior to his colonoscopy 2 weeks ago patient noticed that his stool is black.subsequent stools are getting darker in color hence his colonoscopy. Patient is also back on having hemodialysis. our service is consulted for anemia with history of GI bleeding. Assessment End-stage renal disease Diabetes type 2 History of gastric and duodenal ulcers Anemia GI bleed Plan Cardiac diet Will do EGD after cardiac clearance is obtained N.p.o. after midnight following day of procedure Obtain consent We will monitor active bleeding Monitor labs PPI Okay with aspirin and Plavix in light of his recent cardiac arrest with extensive cardiac history Supportive care Further recommendations to follow Patient was seen and examined by myself and Dr. Amato and his note is written on his behalf - Attending Attestation DR. Haskins
--- NOTE | 2018-05-10 18:02 | P.PN ---
Subjective Interval history: Sitting up and breathing easier. GI workup in progress. Hemoglobin up to 9.6 after packed red cell transfusion Chest x-ray stable with minimal infiltrates. Physical Exam Vital signs: Vital Signs 05/09/18 20:00 05/09/18 21:19 05/09/18 22:51 Temperature 99 F 98.7 F Pulse Rate 97 H 101 H 96 H Respiratory Rate 17 20 15 Blood Pressure 88/58 L 92/47 L Pulse Oximetry 97 96 05/09/18 23:20 05/10/18 00:00 05/10/18 03:33 Temperature 99 F 97.9 F 98.8 F Pulse Rate 97 H 100 H 91 H Respiratory Rate 14 15 Blood Pressure 84/47 L 98/53 L 158/82 H Pulse Oximetry 95 94 L 05/10/18 04:00 05/10/18 05:09 05/10/18 08:00 Temperature 98.8 F 98.1 F Pulse Rate 93 H 94 H 87 Respiratory Rate 18 18 16 Blood Pressure 158/88 H 105/57 L Pulse Oximetry 94 L 98 05/10/18 12:00 05/10/18 12:06 05/10/18 16:00 Temperature 97.8 F 98 F Pulse Rate 102 H 96 H Respiratory Rate 18 20 Blood Pressure 95/49 L 97/57 L Pulse Oximetry 94 L 99 96 Intake & Output 05/09/18 05/10/18 05/10/18 18:59 06:59 18:59 Intake Total 500 / 500 0 / 0 250 / 250 Output Total 1500 / 1500 Balance -1000 / -1000 0 / 0 250 / 250 Weight 118.4 kg Intake: IV 250 / 250 NS Inj 250 ML @ 15 mls/hr IV. 250 / 250 SIG ONCE DOMENICO Rx#:[id number] Oral 500 / 500 Intake (Blood Product) Amt 0 / 0 Rbc As-3 Leukoreduced Unit 0 / 0 [id number] Rbc As-3 Leukoreduced Unit 0 / 0 [id number] Output: Hemodialysis Amount 1500 / 1500 Other: # Voids 0 Date of Last Bowel Movement 05/08/18 Narrative: GENERAL: obese middle-aged white male, NAD. SKIN: Warm and dry. Gauze wrap to right mid arm, status post I&D for thrombophlebitis. HEAD: Atraumatic. Normocephalic. EYES: EOMI. ENT: No nasal bleeding or discharge. Mucous membranes pink and moist. NECK: Trachea midline. No JVD. CARDIOVASCULAR: Regular rate and rhythm. RESPIRATORY: Distant breath sounds with occasional basal crackles GASTROINTESTINAL: Abdomen soft, non-tender, nondistended. MUSCULOSKELETAL: 1+ bilateral lower extremity edema. No calf tenderness. NEUROLOGICAL: Awake and alert. PSYCHIATRIC: Appropriate mood and affect. Results - Labs CBC & Chem 7: 05/10/18 11:23 05/10/18 08:51 Laboratory Results - last 24 hr 05/09/18 05/09/18 05/10/18 19:55 23:49 07:36 WBC RBC Hgb Hct MCV MCH MCHC RDW Plt Count MPV Neut % (Auto) Lymph % (Auto) [place] % (Auto) Eos % (Auto) Baso % (Auto) Neut # (Auto) Lymph # (Auto) [place] # (Auto) Eos # (Auto) Baso # (Auto) WBC Differential Differential Comment Sodium Potassium Chloride Carbon Dioxide Anion Gap BUN Creatinine Estimated GFR POC Glucose 149 H 109 Random Glucose Calcium Blood Type O Positive Blood Type Recheck Not needed Antibody Screen Negative MTS Gel Crossmatch See Detail Bld Prod Order Comment 05/10/18 05/10/18 05/10/18 08:51 08:51 11:23 WBC 7.2 RBC 3.28 L Hgb 9.2 L 9.6 L Hct 28.6 L 29.8 L MCV 87.1 MCH 28.2 MCHC 32.4 RDW 18.4 H Plt Count 164 MPV 8.2 Neut % (Auto) 70.1 H Lymph % (Auto) 17.8 [place] % (Auto) 8.4 H Eos % (Auto) 3.0 Baso % (Auto) 0.7 Neut # (Auto) 5.0 Lymph # (Auto) 1.3 [place] # (Auto) 0.6 Eos # (Auto) 0.2 Baso # (Auto) 0.0 WBC Differential . Differential Comment Auto diff final Sodium 139 Potassium 4.9 Chloride 99 Carbon Dioxide 29.3 Anion Gap 11 BUN 38 H Creatinine 6.30 H Estimated GFR 9 L POC Glucose Random Glucose 72 L Calcium 9.5 Blood Type Blood Type Recheck Antibody Screen MTS Gel Crossmatch Bld Prod Order Comment 05/10/18 05/10/18 12:36 17:15 WBC RBC Hgb Hct MCV MCH MCHC RDW Plt Count MPV Neut % (Auto) Lymph % (Auto) [place] % (Auto) Eos % (Auto) Baso % (Auto) Neut # (Auto) Lymph # (Auto) [place] # (Auto) Eos # (Auto) Baso # (Auto) WBC Differential Differential Comment Sodium Potassium Chloride Carbon Dioxide Anion Gap BUN Creatinine Estimated GFR POC Glucose 133 H 186 H Random Glucose Calcium Blood Type Blood Type Recheck Antibody Screen MTS Gel Crossmatch Bld Prod Order Comment Microbiology 04/26/18 14:52 Other Fungal Smear - Final No fungal elements seen 04/26/18 14:52 Other Fungal Culture - Preliminary No growth in 2 weeks 04/26/18 14:52 Tissue - Other Acid Fast Bacilli Smear - Final No acid fast bacilli seen 04/26/18 14:52 Tissue - Other Mycobacterial Culture - Preliminary No growth in 2 weeks Assessment and Plan - Assessment (1) Respiratory failure Code(s): J96.90 - Respiratory failure, unspecified, unspecified whether with hypoxia or hypercapnia Status: Acute (2) Metabolic bone disease Code(s): E88.9 - Metabolic disorder, unspecified; M90.80 - Osteopathy in diseases classified elsewhere, unspecified site Status: Acute (3) Supraventricular arrhythmia Code(s): I49.9 - Cardiac arrhythmia, unspecified Status: Acute (4) End stage renal disease Code(s): N18.6 - End stage renal disease Status: Acute (5) Hypertension Code(s): I10 - Essential (primary) hypertension Status: Acute (6) Diabetes Code(s): E11.9 - Type 2 diabetes mellitus without complications Status: Acute (7) End stage renal disease on dialysis Code(s): N18.6 - End stage renal disease; Z99.2 - Dependence on renal dialysis Status: Acute (8) Cardiopulmonary arrest with successful resuscitation Code(s): I46.9 - Cardiac arrest, cause unspecified Status: Acute (9) End stage renal disease on dialysis Code(s): N18.6 - End stage renal disease; Z99.2 - Dependence on renal dialysis Status: Acute - Plan 1 Continue O2 2 L N /C daytime and at bedtime 2. Continue CPAP at bedtime with oxygen 28% 3. CBC BMP in a.m. 4. Continue antibiotics per ID 5. DuoNeb nebs 4 times daily. 6. Arrange home O2 at 2 L 7. Incentive spirometry 4 times daily 8. 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
[2018-05-11] MEDS ORDERED: Metoprolol Tartrate 25 MG Tablet PO ONE (00:39)
[2018-05-11] MEDS: Chlorhexidine Gluconate 2% 1 Pack (2 Cloths) TOPICAL ONE ×2 (00:57→09:33)
[2018-05-11] MEDS ORDERED: Sodium Chlor 0.9% Inj 500 ML IV.SIG SCH (01:00)
[2018-05-11] MEDS: Isosorbide Mononitrate 60 MG ER 24HR Tablet (Imdur) PO SCH (06:39)
--- NOTE | 2018-05-11 08:25 | P.PNCA ---
Subjective Interval history: Patient continues to have chest discomfort when he takes a deep breath, unchanged. The patient has required transfusion on 05/06 and 05/09 due to anemia. GI is asked for cardiology reevaluation prior to EGD. Telemetry reviewed with occasional sinus tachycardia, otherwise no significant arrhythmia noted. EKG today unremarkable. Medications and Allergies Active Medications: Active Medications Acetaminophen (Tylenol) 325 mg PO Q4H PRN PRN Reason: PAIN SCALE 1 TO 2 Hydrocodone Bitart/Acetaminophen ([place] 10/325) 1 tab PO Q4H PRN PRN Reason: PAIN SCALE 6 TO 10 Last Admin: 05/10/18 22:48 Dose: 1 tab Albuterol (Duoneb Neb (Prn)) 1 ampul NEB Q2HR NEB PRN PRN Reason: WHEEZING Last Admin: 05/05/18 08:42 Dose: 1 ampul Aspirin (Ecotrin) 81 mg PO DAILY [facility] Last Admin: 05/10/18 08:26 Dose: 81 mg Atorvastatin Calcium (Lipitor) 80 mg PO HS [facility] Last Admin: 05/10/18 20:07 Dose: 80 mg Bisacodyl (Dulcolax Supp) 10 mg RECTAL DAILY PRN PRN Reason: SEVERE CONSITIPATION Calcitriol (Rocaltrol) 0.5 mcg PO DAILY [facility] Last Admin: 05/10/18 08:25 Dose: 0.5 mcg Clopidogrel Bisulfate (Plavix) 75 mg PO DAILY [facility] Last Admin: 05/10/18 08:25 Dose: 75 mg Dextrose (D50w Vial) 50 ml IV.PUSH UNSCH PRN PRN Reason: PER HYPOGLYCEMIA PROTOCOL Diphenhydramine HCl (Benadryl) 25 mg PO UNSCH PRN PRN Reason: SEE LABEL COMMENTS Epoetin Gian (Epogen Inj) 14,000 unit IV.PUSH UNSCH PRN PRN Reason: SEE LABEL COMMENTS Last Admin: 05/09/18 11:48 Dose: 14,000 unit Gelatin (Gelfoam 12 Mm/7 Mm Topical) 1 foam TOPICAL PRN PRN PRN Reason: help stop bleeding from site Last Admin: 05/04/18 11:25 Dose: 1 foam Gentamicin Sulfate (Gentamicin Inj) 20 mg OTHER WITH DIALYSIS PRN PRN Reason: Dwell Gentamycin Lock Glucagon (Glucagon Inj) 1 mg OTHER PRN PRN PRN Reason: for Hypoglycemia Protocol Heparin Sodium (Porcine) (Heparin Inj) 8,000 units OTHER WITH DIALYSIS PRN PRN Reason: for machine prime Heparin Sodium (Porcine) (Heparin Inj) 1,000 units OTHER WITH DIALYSIS PRN PRN Reason: Dwell Heparin to Fill Catheter Lactated Ringer's (Lr 1000 Ml Inj) 1,000 mls @ 30 mls/hr IV.SIG .Q24H DOMENICO Stop: 05/12/18 00:44 Albumin Human (Flexbumin 25% Inj) 100 mls @ 60 mls/hr IV.SIG WITH DIALYSIS PRN PRN Reason: hypotension / volume replace Last Infusion: 04/15/18 09:14 Dose: Infused Sodium Chloride (Ns Inj) 1,000 mls @ 0 mls/hr OTHER .Q0M PRN PRN Reason: for prime and rinse back Sodium Chloride (Ns Inj) 1,000 mls @ 200 mls/hr OTHER .Q5H PRN PRN Reason: for dialyzer flush PRN Sodium Chloride (Ns Inj) 1,000 mls @ 0 mls/hr IV.CONT .Q0M PRN PRN Reason: hypotension / volume replace Propofol (Diprivan 1000 Mg/100 Ml Inj) 1,000 mg in 100 mls @ 3.708 mls/hr IV.CONT TITRATE PRN; Protocol PRN Reason: Per Protocol Last Titration: 04/21/18 09:30 Dose: 0 mcg/kg/min, 0 mls/hr Insulin Human Regular (Novolin R Correctional Sugar Inj) 0 units SQ ACHS [facility]; Protocol Last Admin: 05/10/18 20:10 Dose: Not Given Isosorbide Mononitrate (Imdur) 60 mg PO DAILY@0700 [facility] Last Admin: 05/11/18 06:39 Dose: 60 mg Lactulose (Lactulose Liq) 30 ml PO DAILY PRN PRN Reason: SEVERE CONSITIPATION Last Admin: 04/15/18 01:42 Dose: 30 ml Linezolid (Zyvox) 600 mg PO Q12HR [facility] Stop: 05/11/18 23:59 Last Admin: 05/10/18 20:07 Dose: 600 mg Mannitol (Mannitol Inj) 12.5 gm IV.PUSH UNSCH PRN PRN Reason: hypotension / volume replace Metoprolol Tartrate (Lopressor) 25 mg PO BID [facility] Last Admin: 05/10/18 20:09 Dose: 25 mg Nitroglycerin (Nitrostat Sl) 0.4 mg SL Q5M PRN PRN Reason: CHEST PAIN Last Admin: 04/28/18 22:17 Dose: 0.4 mg Ondansetron HCl (Zofran Inj) 4 mg IV.PUSH Q6H PRN PRN Reason: NAUSEA OR VOMITING Last Admin: 05/08/18 08:10 Dose: 4 mg Pantoprazole Sodium (Protonix) 40 mg PO DAILY [facility] Last Admin: 05/10/18 08:25 Dose: 40 mg Prednisone (Deltasone) 5 mg PO DAILY [facility] Last Admin: 05/10/18 08:25 Dose: 5 mg Senna/Docusate Sodium (Maribel-Colace) 1 tab PO BID [facility] Last Admin: 05/10/18 20:11 Dose: Not Given Sennosides (Senokot) 17.2 mg PO Q12H PRN PRN Reason: Moderate Constipation Sevelamer Carbonate (Renvela) 2,400 mg PO TIDAC [facility] Last Admin: 05/10/18 17:40 Dose: 2,400 mg Sodium Chloride (Ns Flush) 2 ml IV.FLUSH BID [facility] Last Admin: 05/10/18 20:10 Dose: 2 ml Sodium Chloride (Ns Flush) 2 ml IV.FLUSH PRN PRN PRN Reason: FLUSH AFTER USING IV ACCESS Sodium Chloride (Ns Flush) 5 ml IV.FLUSH PRN PRN PRN Reason: flush each lumen during HD Vitamin B Complex/Vit C/Folic Acid (Nephrocaps) 1 tab PO DAILY [facility] Last Admin: 05/10/18 08:25 Dose: 1 tab Allergies Allergy/AdvReac Type Severity Reaction Status Date / Time No Known Allergies Allergy Verified 04/11/18 10:33 Home Medications Medication Instructions Recorded Confirmed Type insulin glargine [Lantus U-100 25 unit SUB-Q HS 11/10/17 04/11/18 History Insulin] prednisone 5 mg PO DAILY 11/10/17 04/11/18 History Physical Exam Vital signs: Vital Signs 05/10/18 12:00 05/10/18 12:06 05/10/18 16:00 Temperature 97.8 F 98 F Pulse Rate 102 H 89 Respiratory Rate 18 18 Blood Pressure 95/49 L 97/57 L Pulse Oximetry 94 L 99 96 05/10/18 20:00 05/10/18 20:30 05/10/18 21:49 Temperature 98.0 F Pulse Rate 92 H 94 H 96 H Respiratory Rate 18 18 Blood Pressure 93/66 L Pulse Oximetry 99 99 05/10/18 23:05 05/11/18 00:00 05/11/18 04:00 Temperature 98.5 F Pulse Rate 101 H 97 H 87 Respiratory Rate 18 Blood Pressure 117/53 L Pulse Oximetry 96 05/11/18 05:10 Temperature 97.9 F Pulse Rate 89 Respiratory Rate 18 Blood Pressure 110/56 L Pulse Oximetry 96 Intake & Output 05/10/18 05/11/18 05/11/18 18:59 06:59 18:59 Intake Total 250 / 250 Balance 250 / 250 Weight 257 lb 7.999 oz Intake: IV 250 / 250 NS Inj 250 ML @ 15 mls/hr IV. 250 / 250 SIG ONCE DOMENICO Rx#:[id number] Other: Date of Last Bowel Movement 05/08/18 Narrative: GENERAL: Well-developed well-nourished. In no acute distress. NECK: No carotid bruits. No JVD. CARDIOVASCULAR: Regular rate and rhythm. No murmur appreciated. RESPIRATORY: No accessory muscle use. Clear to auscultation. Breath sounds equal bilaterally. MUSCULOSKELETAL: No clubbing or cyanosis. No edema. NEUROLOGICAL: Awake and alert. Normal speech. Results 05/10/18 11:23 05/10/18 08:51 CBC 05/09/18 05/10/18 05/10/18 Range/Units 08:30 08:51 11:23 WBC 6.8 7.2 (4.0-11.0) th/mm3 RBC 2.75 L 3.28 L (4.50-5.90) mil/mm3 Hgb 7.6 L 9.2 L 9.6 L (13.0-17.0) gm/dL Hct 24.1 L 28.6 L 29.8 L (39.0-51.0) % Plt Count 181 164 (150-450) th/mm3 Neut # (Auto) 4.9 5.0 (1.8-7.7) th/mm3 Lymph # (Auto) 1.2 1.3 (1.0-4.8) th/mm3 [place] # (Auto) 0.5 0.6 (0.0-0.9) th/mm3 Eos # (Auto) 0.2 0.2 (0.0-0.4) th/mm3 Baso # (Auto) 0.0 0.0 (0.0-0.2) th/mm3 Comprehensive Metabolic Panel 05/09/18 05/10/18 Range/Units 08:30 08:51 Sodium 137 139 (136-145) meq/L Potassium 4.6 4.9 (3.5-5.1) meq/L Chloride 99 99 (98-107) meq/L Carbon Dioxide 27.6 29.3 (21.0-32.0) meq/L BUN 51 H 38 H (7-18) mg/dL Creatinine 8.41 H 6.30 H (0.60-1.30) mg/dL Calcium 9.0 D 9.5 (8.5-10.1) mg/dL Intake and Output 05/10/18 05/11/18 05/11/18 22:59 06:59 14:59 Intake Total 250 / 250 Balance 250 / 250 Intake: IV 250 / 250 NS Inj 250 ML @ 15 mls/hr IV. 250 / 250 SIG ONCE DOMENICO Rx#:[id number] Other: Date of Last Bowel Movement 05/08/18 Weight 257 lb 7.999 oz Assessment and Plan - Plan 57-year-old male with CAD s/p 6v CABG 2003 and PCI to LCx 05/18 grafts patent on [facility], ESRD on home HD 4x per week, HTN, HLD, DM. The patient was at [place] getting colonoscopy done 04/11/18 and had reported asystolic cardiac arrest. Asystolic arrest during anesthesia for colonoscopy: No strips available, however no noted VT/VF. Minimal troponin elevation in the setting of ESRD. Previously reported intermittent chest pain symptoms. When the patient was tachycardic he did have ST depression. No significant arrhythmias noted on telemetry since admission. s/p EP consult. Acute respiratory failure, requiring endotracheal intubation and mechanical ventilation, suspected due to aspiration pneumonia: Improved. Chest pain with CAD: [facility] 04/25/18 with PCI to SVG. Continue aspirin, Plavix, statin. Anemia with possible GI bleeding: GI is evaluated the patient and is requesting cardiology clearance to proceed with EGD on aspirin and Plavix. Cannot stop aspirin Plavix due to recent drug-eluting stent placement. Okay to proceed with EGD on antiplatelets from cardiology perspective. Please call with questions. Discussed Condition With: Patient seen with Dr. Medina
[2018-05-11] MEDS: predniSONE 5 MG Tablet PO SCH (08:58)
[2018-05-11] MEDS: Metoprolol Tartrate 25 MG Tablet PO SCH ×2 (08:59→20:16)
[2018-05-11] MEDS: Senna/Docusate Sodium 8.6/50 MG Tablet PO SCH ×2 (08:59→20:16)
[2018-05-11] MEDS: Linezolid 600 MG Tablet PO SCH ×2 (08:59→20:15)
[2018-05-11] MEDS: Vitamin B Complex/Vit C/Folic Tablet PO SCH (09:00)
[2018-05-11] MEDS: Calcitriol 0.25 MCG Capsule PO SCH (09:00)
[2018-05-11] MEDS ORDERED: Lidocaine PF 1% Inj 5 ML Syringe OTHER ONE (10:29)
--- NOTE | 2018-05-11 11:10 | GIPROC ---
[facility] [address] [facility]. [facility], [address] EGD PROCEDURE REPORT EXAM DATE: 05/11/2018 PATIENT NAME: Donnie Salguero MR #: [id number] BIRTHDATE: 1960 ATTENDING: Jonnathan Haskins MD ORDER #: [id number] EMERY WHEEL MOLDER: Fred Fabian and Coreen Ag STATUS: inpatient INDICATIONS: The patient is a 57 yr old male here for an EGD due to iron deficiency anemia and occult blood positive PROCEDURE PERFORMED: EGD, diagnostic MEDICATIONS: Per Anesthesia and None. TOPICAL ANESTHETIC: CONSENT: The patient understands the risks and benefits of the procedure and understands that these risks include, but are not limited to: sedation, allergic reaction, infection, perforation and/or bleeding. Alternative means of evaluation and treatment include, among others: physical exam, x-rays, and/or surgical intervention. The patient elects to proceed with this endoscopic procedure. medical equipment was checked for proper function. Hand hygiene and appropriate measures for infection prevention was taken. After the risks, benefits and alternatives of the procedure were thoroughly explained, Informed consent was verified, confirmed and timeout was successfully executed by the treatment team. The patient was anesthetized with topical anesthesia and the Pentax EG-[id number] endoscope was introduced through the mouth and advanced to the second portion of the duodenum. Retroflexed views revealed no abnormalities The gastroscope was then slowly withdrawn and removed. ESOPHAGUS: A large non-bleeding, irregular shaped, linear, deep and clean-based ulcer with surrounding edema was found in the distal esophagus. STOMACH: There was a moderate amount of residual food seen in the gastric fundus and gastric antrum. Based on this, I suspect the patient has some level of gastroparesis. DUODENUM: The duodenal mucosa appeared normal in the entire duodenum. ADVERSE EVENTS: There were no complications. IMPRESSIONS: 1. Large ulcer was found in the distal esophagus 2. Food residue in the gastric fundus and gastric antrum 3. Normal duodenal mucosa in the entire duodenum 4. Retroflexed views revealed no abnormalities RECOMMENDATIONS: 1. Await biopsy results. Biopsy results will not be ready for 7-10 days. If you don't hear from us in two weeks, call our office for biopsy results. 2. Protonix Reglan PATIENT CONDITION: stable DISPOSITION: Inpatient REPEAT EXAM: Return 3 months EGD Jonnathan Haskins MD eSigned: Jonnathan Haskins MD 05/11/2018 11:10 AM cc: PATIENT NAME: Donnie Salguero MR#: [id number]
[2018-05-11] MEDS: Insulin NovoLIN Regular Correctional Sugar Inj SQ SCH ×4 (12:11→23:11)
--- NOTE | 2018-05-11 14:42 | P.PNIM ---
Subjective Interval history: Pt had EGD today. Pt c/o nausea this afternoon. Some improvement with zofran. Physical Exam Vital signs: Last Vital Signs Temp 98.5 F 05/11/18 11:05 Pulse 96 H 05/11/18 11:15 Resp 16 05/11/18 12:02 BP 134/65 05/11/18 11:15 Pulse Ox 97 05/11/18 12:00 Narrative: heart reg lung no wheezing abd s/nt ext right arm incision. sutured. minimal clear drainage trace lower ext edema Results Labs CBC & Chem 7: 05/10/18 11:23 05/10/18 08:51 Assessment and Plan Plan 1) Cardiopulmonary Arrest with successful recussitation - patient was having a routine colonoscopy and while being sedated he had an asystolic episode. - He received 2 rounds of epinephrine and chest compressions were performed. - He was initially intubated on arrival to the ER and then subsequently was extubated. - On April 15 patient again started having respiratory distress and was intubated again. - Patient was extubated on April 21, 2017 and has been doing well. - LHC (04/25/18) with Dr. Ramos Arredondo - Successful percutaneous coronary intervention with drug-eluting stent to the mid body of the saphenous vein graft to diagonal branch. - ASA, plavix, imdur, lipitor 2) Septic Thrombophlebitis - comgmt with Vascular Surgery and Infectious Disease - Pt taken to the OR by Dr. Meade. & underwent excision of the antecubital veins and a portion of the basilic vein on the right with tissue cultures, irrigation and packing. - Case d/w Dr. Meade (04/27/18) - Zosyn stopped - Vancomycin stopped 04/24 - Zyvox (04/25 - present) - vancomycin on HD days - Case discussed between Drs. Carreno & Rossy. - Diffucult to dose vanco given the way pt gets his outpt hemodialysis at home. She is recommending zyvoxx. would give last doses of zyvoxx on 05/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 - wound Cx (04/26) --> no growth 3) Anemia - pt notes prior h/o GIB - EGD (05/11) with Dr. Haskins 1. Large ulcer was found in the distal esophagus 2. Food residue in the gastric fundus and gastric antrum 3. Normal duodenal mucosa in the entire duodenum 4. Retroflexed views revealed no abnormalities - anemia likely multifactorial: acute illness, ESRD, esophageal ulcer - Case d/w Dr. Haskins (05/11). - repeat EGD with Colonoscopy outpt in 4 weeks - increase protonix to BID - receiving Epogen - Pt received 1 unit PRBCs (05/06) - transfused 2 units PRBCs (05/10) - Hg 9.6 (05/10), 9.6 (05/11) - CBC in AM 4) Hypotension, resolved - anemia contributing - Recently, 3 new meds bb/ccb/hydralazine. stopped hydralazine. - Hydralzine stopped - Cardizem on hold. Watch for recurrent afib/rvr - imdur decreased from 120mg to 90mg --> decrease to 60mg daily - improved readings 05/11 5) Atrial Fibrillation - IV Cardizem stopped - PO Cardizem 6) ESRD on HD - HD ,, Wednesday per Dr. Vasquez 7) DM2 - SSI Progress Note: Quality VTE Deep Vein Thrombosis/Pulmonary Embolism Present on Admission: No
--- NOTE | 2018-05-11 15:46 | P.PNNP ---
Subjective Interval history: Patient was seen, s/p EGD. Patient had complaints of nausea/vomiting since EGD. EGD revealed large ulcer in the distal esophagus. Patient gets dialysis MWF, will be getting dialyzed today. Labs today were ordered. <Leeann Mcgarry - Last Filed: 05/11/18 15:41> Physical Exam Vital signs: Vital Signs 05/10/18 16:00 05/10/18 20:00 05/10/18 20:30 Temperature 98 F 98.0 F Pulse Rate 89 92 H 94 H Respiratory Rate 18 18 Blood Pressure 97/57 L 93/66 L Pulse Oximetry 96 99 05/10/18 21:49 05/10/18 23:05 05/11/18 00:00 Temperature 98.5 F Pulse Rate 96 H 101 H 97 H Respiratory Rate 18 18 Blood Pressure 117/53 L Pulse Oximetry 99 96 05/11/18 04:00 05/11/18 05:10 05/11/18 08:00 Temperature 97.9 F 98 F Pulse Rate 87 89 94 H Respiratory Rate 18 17 Blood Pressure 110/56 L 111/53 L Pulse Oximetry 96 91 L 05/11/18 11:05 05/11/18 11:15 05/11/18 12:00 Temperature 98.5 F Pulse Rate 101 H 96 H Respiratory Rate 20 20 Blood Pressure 128/64 134/65 Pulse Oximetry 91 L 92 L 97 05/11/18 12:02 Temperature Pulse Rate Respiratory Rate 16 Blood Pressure Pulse Oximetry Intake & Output 05/10/18 05/11/18 05/11/18 18:59 06:59 18:59 Intake Total 250 / 250 400 / 400 Output Total 300 / 300 Balance 250 / 250 100 / 100 Weight 116.8 kg Intake: IV 250 / 250 200 / 200 LR 1000 mL Inj 1,000 ML @ 30 0 / 0 mls/hr IV.SIG .Q24H DOMENICO Rx#: [id number] NS Inj 250 ML @ 15 mls/hr IV. 250 / 250 SIG ONCE DOMENICO Rx#:[id number] NS Inj 500 ML @ 30 mls/hr IV. 200 / 200 SIG .Q10H DOMENICO Rx#:[id number] Anesthesia Amount 200 / 200 Output: Emesis 300 / 300 Other: Date of Last Bowel Movement 05/08/18 Narrative: GENERAL: Well-developed well-nourished. In no acute distress. NECK: No carotid bruits. No JVD. CARDIOVASCULAR: Regular rate and rhythm. No murmur appreciated. RESPIRATORY: No accessory muscle use. Clear to auscultation. Breath sounds equal bilaterally. MUSCULOSKELETAL: No clubbing or cyanosis. No edema. NEUROLOGICAL: Awake and alert. Normal speech. <Leeann Mcgarry - Last Filed: 05/11/18 15:41> Vital signs: Vital Signs 05/11/18 16:00 05/11/18 20:00 05/11/18 23:33 Temperature 99.5 F Pulse Rate 92 H 109 H 78 Respiratory Rate 16 16 Blood Pressure 112/54 L Pulse Oximetry 91 L 05/12/18 00:00 05/12/18 04:00 05/12/18 04:42 Temperature 98.5 F 98.6 F Pulse Rate 92 H 88 73 Respiratory Rate 16 16 16 Blood Pressure 104/51 L 90/49 L Pulse Oximetry 92 L 96 05/12/18 08:00 05/12/18 10:41 05/12/18 11:55 Temperature 97.5 F L 98.2 F Pulse Rate 87 94 H Respiratory Rate 18 16 Blood Pressure 96/51 L 123/56 L Pulse Oximetry 96 96 95 Intake & Output 05/11/18 05/12/18 05/12/18 18:59 06:59 18:59 Intake Total 400 / 400 240 / 240 Output Total 2300 / 2300 1999 Balance -1900 / -1900 -1760 / -1760 Weight 123 kg Intake: IV 200 / 200 LR 1000 mL Inj 1,000 ML @ 30 0 / 0 mls/hr IV.SIG .Q24H DOMENICO Rx#: [id number] NS Inj 500 ML @ 30 mls/hr IV. 200 / 200 SIG .Q10H DOMENICO Rx#:[id number] Oral 240 / 240 Anesthesia Amount 200 / 200 Output: Urine 0 / 0 Emesis 300 / 300 Hemodialysis Amount 1999 Other: Date of Last Bowel Movement 05/10/18 05/10/18 <Tramaine Dixon - Last Filed: 05/12/18 14:27> Assessment and Plan - Assessment (1) End stage renal disease Code(s): N18.6 - End stage renal disease Status: Acute Plan: Patient with ESRD, on Home HD. Patient getting dialysis MWF while hospitalized. Patient will be dialyzed today. Avoid Gadolinium. Monitor fluid and electrolytes. Avoid nephrotoxic agents. (2) Hypertension Code(s): I10 - Essential (primary) hypertension Status: Acute Qualifiers: Hypertension type: essential hypertension Qualified Code(s): I10 - Essential (primary) hypertension Plan: Continue to monitor. Has been hypotensive. 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 (4) Cardiopulmonary arrest with successful resuscitation Code(s): I46.9 - Cardiac arrest, cause unspecified Status: Acute Plan: s/p cardiac cath. Cardiac signed off (5) Metabolic bone disease Code(s): E88.9 - Metabolic disorder, unspecified; M90.80 - Osteopathy in diseases classified elsewhere, unspecified site Status: Acute Plan: Sensipar has been held due to hypocalcemia. PTH level 1954, patient on Calcitriol 0.5 mcg po daily. Ordered new PTH level. Monitor phosphorus intermittently. He is on Renvela. Phosphorus 05/09 was 6.3. (6) Thrombophlebitis arm Code(s): I80.8 - Phlebitis and thrombophlebitis of other sites Status: Acute Plan: s/p I&D. (7) Anemia Code(s): D64.9 - Anemia, unspecified Status: Acute Plan: Continue Epogen with dialysis.. s/p 2 units PRBCs 05/09. GI consulted. EGD today revealed large ulcer in the distal esophagus. <Leeann Mcagrry - Last Filed: 05/11/18 15:41> - Assessment (1) End stage renal disease Code(s): N18.6 - End stage renal disease Status: Acute (2) Hypertension Code(s): I10 - Essential (primary) hypertension Status: Acute Qualifiers: Hypertension type: essential hypertension Qualified Code(s): I10 - Essential (primary) hypertension (3) Diabetes Code(s): E11.9 - Type 2 diabetes mellitus without complications Status: Acute Qualifiers: Diabetes mellitus retirement insulin use: unspecified retirement insulin use status (4) Cardiopulmonary arrest with successful resuscitation Code(s): I46.9 - Cardiac arrest, cause unspecified Status: Acute (5) Metabolic bone disease Code(s): E88.9 - Metabolic disorder, unspecified; M90.80 - Osteopathy in diseases classified elsewhere, unspecified site Status: Acute (6) Thrombophlebitis arm Code(s): I80.8 - Phlebitis and thrombophlebitis of other sites Status: Acute (7) Anemia Code(s): D64.9 - Anemia, unspecified Status: Acute - Attending Attestation patient was seen and examined on the . Agree with above assessment and plan. EGD note reviewed. <Tramaine Dixon - Last Filed: 05/12/18 14:27>
[2018-05-11] MEDS: Gelatin 12 MM/7 MM Topical Foam TOPICAL PRN (17:50)
--- NOTE | 2018-05-11 19:22 | P.PN ---
Subjective Interval history: He is being dialyzed. On O2 at 2 L. Had a EGD done and has esophageal ulcer. Hemoglobin is stable now. No shortness of breath at rest. Physical Exam Vital signs: Vital Signs 05/10/18 20:00 05/10/18 20:30 05/10/18 21:49 Temperature 98.0 F Pulse Rate 92 H 94 H 96 H Respiratory Rate 18 18 Blood Pressure 93/66 L Pulse Oximetry 99 99 05/10/18 23:05 05/11/18 00:00 05/11/18 04:00 Temperature 98.5 F Pulse Rate 101 H 97 H 87 Respiratory Rate 18 Blood Pressure 117/53 L Pulse Oximetry 96 05/11/18 05:10 05/11/18 08:00 05/11/18 11:05 Temperature 97.9 F 98 F 98.5 F Pulse Rate 89 94 H 101 H Respiratory Rate 18 17 20 Blood Pressure 110/56 L 111/53 L 128/64 Pulse Oximetry 96 91 L 91 L 05/11/18 11:15 05/11/18 12:00 05/11/18 12:02 Temperature 98.4 F Pulse Rate 96 H 93 H Respiratory Rate 20 16 16 Blood Pressure 134/65 102/49 L Pulse Oximetry 92 L 96 Intake & Output 05/11/18 05/11/18 05/12/18 06:59 18:59 06:59 Intake Total 400 / 400 Output Total 300 / 300 Balance 100 / 100 Weight 116.8 kg Intake: IV 200 / 200 LR 1000 mL Inj 1,000 ML @ 30 0 / 0 mls/hr IV.SIG .Q24H DOMENICO Rx#: [id number] NS Inj 500 ML @ 30 mls/hr IV. 200 / 200 SIG .Q10H DOMENICO Rx#:[id number] Anesthesia Amount 200 / 200 Output: Emesis 300 / 300 Other: Date of Last Bowel Movement 05/08/18 Narrative: GENERAL: Well-developed obese elderly white male. In no acute distress. NECK: No carotid bruits. No JVD. HEENT: Unremarkable CARDIOVASCULAR: Regular rate and rhythm. No murmur appreciated. RESPIRATORY: No accessory muscle use. Few expiratory wheezes in the upper chest and breath sounds equal bilaterally. MUSCULOSKELETAL: No clubbing or cyanosis. No edema. NEUROLOGICAL: Awake and alert. Normal speech. Results - Labs CBC & Chem 7: 05/10/18 11:23 05/10/18 08:51 Laboratory Results - last 24 hr 05/10/18 05/11/18 05/11/18 19:51 08:53 12:20 POC Glucose 108 97 85 05/11/18 17:41 POC Glucose 79 Assessment and Plan - Assessment (1) Respiratory failure Code(s): J96.90 - Respiratory failure, unspecified, unspecified whether with hypoxia or hypercapnia Status: Acute (2) Metabolic bone disease Code(s): E88.9 - Metabolic disorder, unspecified; M90.80 - Osteopathy in diseases classified elsewhere, unspecified site Status: Acute (3) Supraventricular arrhythmia Code(s): I49.9 - Cardiac arrhythmia, unspecified Status: Acute (4) End stage renal disease Code(s): N18.6 - End stage renal disease Status: Acute (5) Hypertension Code(s): I10 - Essential (primary) hypertension Status: Acute (6) Diabetes Code(s): E11.9 - Type 2 diabetes mellitus without complications Status: Acute (7) End stage renal disease on dialysis Code(s): N18.6 - End stage renal disease; Z99.2 - Dependence on renal dialysis Status: Acute (8) Cardiopulmonary arrest with successful resuscitation Code(s): I46.9 - Cardiac arrest, cause unspecified Status: Acute (9) End stage renal disease on dialysis Code(s): N18.6 - End stage renal disease; Z99.2 - Dependence on renal dialysis Status: Acute - Plan 1 Continue O2 2 L N /C daytime and at bedtime 2. Continue CPAP at bedtime with oxygen 28% 3. PT for activity 4. Continue antibiotics per ID 5. DuoNeb nebs 4 times daily. 6. Arrange home O2 at 2 L 7. Incentive spirometry 4 times daily 8. 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
--- NOTE | 2018-05-11 21:28 | ECG ---
Date Performed: 05/11/2018 Time Performed: 06:47:22 PTAGE: 57 years EKG: Sinus rhythm . Septal and lateral ST-T changes are nonspecific Borderline ECG NO PREVIOUS TRACING DOCTOR: Orlando Arzola Interpretating Date/Time 05/11/2018 21:27:02
[2018-05-12] MEDS: Isosorbide Mononitrate 60 MG ER 24HR Tablet (Imdur) PO SCH (06:14)
[2018-05-12 07:13] LABS: Baso % (Auto) 0.5 % (0.0-2.0); Eos # (Auto) 0.2 th/mm3 (0.0-0.4); Eos % (Auto) 2.2 % (0.0-4.0); Hematocrit 28.1 % (39.0-51.0); Hemoglobin 9.1 gm/dL (13.0-17.0); Mean Corpuscular HGB Conc 32.3 % (32.0-36.0); Mean Corpuscular Hemoglobin 28.7 pg (27.0-34.0); Mean Corpuscular Volume 88.8 fL (80.0-100.0); Mono # (Auto) 0.5 th/mm3 (0.0-0.9); Mono % (Auto) 6.7 % (0.0-8.0); Neut # (Auto) 6.2 th/mm3 (1.8-7.7); Neut % (Auto) 77.6 % (16.0-70.0); Platelet Count 144 th/mm3 (150-450); Red Blood Count 3.16 mil/mm3 (4.50-5.90); Red Cell Distribution Width 18.9 % (11.6-17.2)
[2018-05-12 07:46] LABS: Calcium 9.1 mg/dL (8.5-10.1); Carbon Dioxide 29.8 meq/L (21.0-32.0); Potassium 4.5 meq/L (3.5-5.1)
[2018-05-12] MEDS: Insulin NovoLIN Regular Correctional Sugar Inj SQ SCH ×4 (08:42→20:12)
[2018-05-12] MEDS: Vitamin B Complex/Vit C/Folic Tablet PO SCH (09:18)
[2018-05-12] MEDS: Calcitriol 0.25 MCG Capsule PO SCH (09:19)
[2018-05-12] MEDS: Senna/Docusate Sodium 8.6/50 MG Tablet PO SCH ×2 (09:19→20:13)
[2018-05-12] MEDS: Metoprolol Tartrate 25 MG Tablet PO SCH ×2 (09:20→20:27)
--- NOTE | 2018-05-12 11:35 | P.PNGI ---
Subjective Interval history: Patient awake and alert Reports intermittent nausea without vomiting States appetite poor last evening and this a.m. but will attempt lunch meal Post EGD Physical Exam Vital signs: Vital Signs 05/11/18 12:00 05/11/18 12:02 05/11/18 16:00 Temperature 98.4 F Pulse Rate 101 H 92 H Respiratory Rate 16 16 Blood Pressure 102/49 L Pulse Oximetry 96 05/11/18 20:00 05/11/18 23:33 05/12/18 00:00 Temperature 99.5 F 98.5 F Pulse Rate 109 H 78 92 H Respiratory Rate 16 16 16 Blood Pressure 112/54 L 104/51 L Pulse Oximetry 91 L 92 L 05/12/18 04:00 05/12/18 04:42 05/12/18 08:00 Temperature 98.6 F 97.5 F L Pulse Rate 88 73 87 Respiratory Rate 16 16 18 Blood Pressure 90/49 L 96/51 L Pulse Oximetry 96 96 05/12/18 10:41 Temperature Pulse Rate Respiratory Rate Blood Pressure Pulse Oximetry 96 Intake & Output 05/11/18 05/12/18 05/12/18 18:59 06:59 18:59 Intake Total 400 / 400 240 / 240 Output Total 300 / 300 1999 Balance 100 / 100 -1760 / -1760 Weight 123 kg Intake: IV 200 / 200 LR 1000 mL Inj 1,000 ML @ 30 0 / 0 mls/hr IV.SIG .Q24H DOMENICO Rx#: [id number] NS Inj 500 ML @ 30 mls/hr IV. 200 / 200 SIG .Q10H DOMENICO Rx#:[id number] Oral 240 / 240 Anesthesia Amount 200 / 200 Output: Urine 0 / 0 Emesis 300 / 300 Hemodialysis Amount 1999 Other: Date of Last Bowel Movement 05/10/18 05/10/18 - Constitutional no acute distress, cooperative - Routine HEENT Exam Head: Present: normocephalic ENT: Present: mucous membranes moist - Routine Respiratory Exam Present: CTA bilaterally. Absent: accessory muscle use - Routine Cardiovascular Exam Present: RRR, S1, S2 - Routine Abdominal Exam Present: soft, normoactive bowel sounds. Absent: tenderness - Routine Skin Exam Present: dry, warm - Routine Neurological Exam Present: alert, oriented X3 Results - Labs CBC & Chem 7: 05/12/18 06:03 05/12/18 06:03 Laboratory Results - last 24 hr 05/11/18 05/11/18 05/11/18 08:53 12:20 17:41 WBC RBC Hgb Hct MCV MCH MCHC RDW Plt Count MPV Neut % (Auto) Lymph % (Auto) [place] % (Auto) Eos % (Auto) Baso % (Auto) Neut # (Auto) Lymph # (Auto) [place] # (Auto) Eos # (Auto) Baso # (Auto) WBC Differential Differential Comment Sodium Potassium Chloride Carbon Dioxide Anion Gap BUN Creatinine Estimated GFR POC Glucose 97 85 79 Random Glucose Calcium PTH Intact 05/12/18 05/12/18 05/12/18 06:03 06:03 06:03 WBC 8.0 RBC 3.16 L Hgb 9.1 L Hct 28.1 L MCV 88.8 MCH 28.7 MCHC 32.3 RDW 18.9 H Plt Count 144 L MPV 8.0 Neut % (Auto) 77.6 H Lymph % (Auto) 13.0 [place] % (Auto) 6.7 Eos % (Auto) 2.2 Baso % (Auto) 0.5 Neut # (Auto) 6.2 Lymph # (Auto) 1.0 [place] # (Auto) 0.5 Eos # (Auto) 0.2 Baso # (Auto) 0.0 WBC Differential . Differential Comment Auto diff final Sodium 138 Potassium 4.5 Chloride 100 Carbon Dioxide 29.8 Anion Gap 8 BUN 38 H Creatinine 6.10 H Estimated GFR 9 L POC Glucose Random Glucose 59 L Calcium 9.1 PTH Intact 1429.4 H 05/12/18 08:06 WBC RBC Hgb Hct MCV MCH MCHC RDW Plt Count MPV Neut % (Auto) Lymph % (Auto) [place] % (Auto) Eos % (Auto) Baso % (Auto) Neut # (Auto) Lymph # (Auto) [place] # (Auto) Eos # (Auto) Baso # (Auto) WBC Differential Differential Comment Sodium Potassium Chloride Carbon Dioxide Anion Gap BUN Creatinine Estimated GFR POC Glucose 80 Random Glucose Calcium PTH Intact Assessment and Plan (1) History of ulcer disease Status: Acute Code(s): Z87.898 - Personal history of other specified conditions (2) CAD (coronary artery disease) Status: Acute Code(s): I25.10 - Atherosclerotic heart disease of [place] coronary artery without angina pectoris (3) Afib Status: Acute Code(s): I48.91 - Unspecified atrial fibrillation (4) Anemia Status: Acute Code(s): D64.9 - Anemia, unspecified (5) Supraventricular arrhythmia Status: Acute Code(s): I49.9 - Cardiac arrhythmia, unspecified (6) End stage renal disease on dialysis Status: Acute Code(s): N18.6 - End stage renal disease; Z99.2 - Dependence on renal dialysis - Plan 05/10/2018 This is a very pleasant 57-year-old male patient who was initially admitted for cardiac arrest after having his colonoscopy done at [place]. Patient was resuscitated and was vented for 2 weeks. Currently patient is doing well and is just using 2 L nasal cannula. Patient has significant medical comorbidities including end-stage renal disease on hemodialysis status post renal transplant in 2004 coronary artery disease with CABG in 2003 and had cardiac stenting diabetes mellitus. 3 years ago patient had EGD with 5 gastric in duodenal ulcers found. Surgical history includes PTCA 2003 2009 with cardiac stenting CABG 2003 post renal transplant 2004 and explore laparotomy in the patient does not recall the reason why. Patient reports of reflux or dyspepsia and takes Protonix.prior to admission patient does not have any abdominal or gastrointestinal issues. He did felt nauseated yesterday and the nausea is less as of today and had tolerated his meals. Patient had bowel movement today and denies any blood in the stool or bright red blood per rectum.patient recalled that prior to his colonoscopy 2 weeks ago patient noticed that his stool is black.subsequent stools are getting darker in color hence his colonoscopy. Patient is also back on having hemodialysis. our service is consulted for anemia with history of GI bleeding. Assessment End-stage renal disease Diabetes type 2 History of gastric and duodenal ulcers Anemia GI bleed 05/12/2018 GI bleed with anemia History of gastric and duodenal ulcers Gastroparesis Hemoglobin 9.1 hematocrit 28.1 stable Patient reports stools are dark, no longer black. 05/11/2018 post EGD: Large ulcer was found in the distal esophagus Food residue in the gastric fundus and gastric antrum Normal duodenal mucosa in the entire duodenum Retroflexed views revealed no abnormalities Plan -Cardiac diet -Monitor for active bleeding-notify GI -Monitor hemoglobin and hematocrit -Protonix 40 mg p.o. twice daily -Recommend Reglan 5 mg IV q 8 hours ( prokinetic ) -Repeat EGD in 3 months -Follow up with [facility] post discharge in 1 week--To arrange [facility] as outpatient in 4 weeks -Supportive care -GI will sign off at this time, please notify for any additional assistance This patient was seen by myself and Dr. Haskins and this note is written on his behalf - Attending Attestation Dr. Haskins
--- NOTE | 2018-05-12 13:29 | P.PNNP ---
Subjective Interval history: Patient was seen, no vomiting today, no distress. Patient gets dialysis MWF. Was dialyzed yesterday, 2 L removed. <Leeann Mcgarry - Last Filed: 05/12/18 13:24> Physical Exam Vital signs: Vital Signs 05/11/18 16:00 05/11/18 20:00 05/11/18 23:33 Temperature 99.5 F Pulse Rate 92 H 109 H 78 Respiratory Rate 16 16 Blood Pressure 112/54 L Pulse Oximetry 91 L 05/12/18 00:00 05/12/18 04:00 05/12/18 04:42 Temperature 98.5 F 98.6 F Pulse Rate 92 H 88 73 Respiratory Rate 16 16 16 Blood Pressure 104/51 L 90/49 L Pulse Oximetry 92 L 96 05/12/18 08:00 05/12/18 10:41 Temperature 97.5 F L Pulse Rate 87 Respiratory Rate 18 Blood Pressure 96/51 L Pulse Oximetry 96 96 Intake & Output 05/11/18 05/12/18 05/12/18 18:59 06:59 18:59 Intake Total 400 / 400 240 / 240 Output Total 300 / 300 1999 Balance 100 / 100 -1760 / -1760 Weight 123 kg Intake: IV 200 / 200 LR 1000 mL Inj 1,000 ML @ 30 0 / 0 mls/hr IV.SIG .Q24H DOMENICO Rx#: [id number] NS Inj 500 ML @ 30 mls/hr IV. 200 / 200 SIG .Q10H DOMENICO Rx#:[id number] Oral 240 / 240 Anesthesia Amount 200 / 200 Output: Urine 0 / 0 Emesis 300 / 300 Hemodialysis Amount 1999 Other: Date of Last Bowel Movement 05/10/18 05/10/18 Narrative: GENERAL: No acute distress. NECK: No carotid bruits. No JVD. HEENT: Unremarkable CARDIOVASCULAR: Regular rate and rhythm. No murmur appreciated. ABDOMEN: soft, nontender, active bowel sounds. RESPIRATORY: No accessory muscle use. On O2 nasal cannula. MUSCULOSKELETAL: No clubbing or cyanosis. No edema - has compression hose on. NEUROLOGICAL: Awake and alert. Normal speech. <Leeann Mcgarry - Last Filed: 05/12/18 13:24> Vital signs: Vital Signs 05/11/18 16:00 05/11/18 20:00 05/11/18 23:33 Temperature 99.5 F Pulse Rate 92 H 109 H 78 Respiratory Rate 16 16 Blood Pressure 112/54 L Pulse Oximetry 91 L 05/12/18 00:00 05/12/18 04:00 05/12/18 04:42 Temperature 98.5 F 98.6 F Pulse Rate 92 H 88 73 Respiratory Rate 16 16 16 Blood Pressure 104/51 L 90/49 L Pulse Oximetry 92 L 96 05/12/18 08:00 05/12/18 10:41 05/12/18 11:55 Temperature 97.5 F L 98.2 F Pulse Rate 87 94 H Respiratory Rate 18 16 Blood Pressure 96/51 L 123/56 L Pulse Oximetry 96 96 95 Intake & Output 05/11/18 05/12/18 05/12/18 18:59 06:59 18:59 Intake Total 400 / 400 240 / 240 Output Total 2300 / 2300 1999 Balance -1900 / -1900 -1760 / -1760 Weight 123 kg Intake: IV 200 / 200 LR 1000 mL Inj 1,000 ML @ 30 0 / 0 mls/hr IV.SIG .Q24H DOMENICO Rx#: [id number] NS Inj 500 ML @ 30 mls/hr IV. 200 / 200 SIG .Q10H DOMENICO Rx#:[id number] Oral 240 / 240 Anesthesia Amount 200 / 200 Output: Urine 0 / 0 Emesis 300 / 300 Hemodialysis Amount 1999 Other: Date of Last Bowel Movement 05/10/18 05/10/18 <Tramaine Dixon - Last Filed: 05/12/18 14:39> Assessment and Plan - Assessment (1) End stage renal disease Code(s): N18.6 - End stage renal disease Status: Acute Plan: Patient with ESRD, on Home HD. Patient getting dialysis MWF while hospitalized. Patient dialyzed yesterday, 2 L removed. Avoid Gadolinium. Monitor fluid and electrolytes. Avoid nephrotoxic agents. (2) Hypertension Code(s): I10 - Essential (primary) hypertension Status: Acute Qualifiers: Hypertension type: essential hypertension Qualified Code(s): I10 - Essential (primary) hypertension Plan: Continue to monitor. Has been hypotensive. (3) Diabetes Code(s): E11.9 - Type 2 diabetes mellitus without complications Status: Acute Qualifiers: Diabetes mellitus mcc insulin use: unspecified flat finisher insulin use status Plan: Monitor blood glucose.Insulin coverage to maintain blood glucose levels between 140 and 180 while hospitalized. (4) Cardiopulmonary arrest with successful resuscitation Code(s): I46.9 - Cardiac arrest, cause unspecified Status: Acute Plan: s/p cardiac cath. Cardiac signed off (5) Metabolic bone disease Code(s): E88.9 - Metabolic disorder, unspecified; M90.80 - Osteopathy in diseases classified elsewhere, unspecified site Status: Acute Plan: Sensipar has been held due to hypocalcemia. Ca is 9.1. PTH level 1429.4, patient on Calcitriol 0.5 mcg po daily. Monitor phosphorus intermittently. He is on Renvela. Phosphorus 05/09 was 6.3. (6) Thrombophlebitis arm Code(s): I80.8 - Phlebitis and thrombophlebitis of other sites Status: Acute Plan: s/p I&D. (7) Anemia Code(s): D64.9 - Anemia, unspecified Status: Acute Plan: Continue Epogen with dialysis. Monitor for active bleeding. s/p 2 units PRBCs 05/09. GI consulted. s/p EGD. Note reviewed, repeat EGD in 3 months <Leeann Mcgarry - Last Filed: 05/12/18 13:24> - Assessment (1) End stage renal disease Code(s): N18.6 - End stage renal disease Status: Acute (2) Hypertension Code(s): I10 - Essential (primary) hypertension Status: Acute Qualifiers: Hypertension type: essential hypertension Qualified Code(s): I10 - Essential (primary) hypertension (3) Diabetes Code(s): E11.9 - Type 2 diabetes mellitus without complications Status: Acute Qualifiers: Diabetes mellitus flat finisher insulin use: unspecified mcc insulin use status (4) Cardiopulmonary arrest with successful resuscitation Code(s): I46.9 - Cardiac arrest, cause unspecified Status: Acute (5) Metabolic bone disease Code(s): E88.9 - Metabolic disorder, unspecified; M90.80 - Osteopathy in diseases classified elsewhere, unspecified site Status: Acute (6) Thrombophlebitis arm Code(s): I80.8 - Phlebitis and thrombophlebitis of other sites Status: Acute (7) Anemia Code(s): D64.9 - Anemia, unspecified Status: Acute - Attending Attestation patient was seen and examined. Agree with above assessment and plan. <Tramaine Dixon - Last Filed: 05/12/18 14:39>
--- NOTE | 2018-05-12 17:45 | P.PNIM ---
Subjective Interval history: draft Physical Exam Vital signs: Last Vital Signs Temp 98.1 F 05/12/18 16:15 Pulse 93 H 05/12/18 16:15 Resp 16 05/12/18 16:15 BP 106/51 L 05/12/18 16:15 Pulse Ox 95 05/12/18 16:15 Narrative: heart reg lung no wheezing abd s/nt ext right arm incision. sutured. minimal clear drainage trace lower ext edema Results Labs CBC & Chem 7: 05/12/18 06:03 05/12/18 06:03 Assessment and Plan Assessment (1) History of ulcer disease: Code(s): Z87.898 - Personal history of other specified conditions Status: Acute (2) CAD (coronary artery disease): Code(s): I25.10 - Atherosclerotic heart disease of [place] coronary artery without angina pectoris Status: Acute (3) Afib: Code(s): I48.91 - Unspecified atrial fibrillation Status: Acute (4) Anemia: Code(s): D64.9 - Anemia, unspecified Status: Acute (5) Supraventricular arrhythmia: Code(s): I49.9 - Cardiac arrhythmia, unspecified Status: Acute (6) End stage renal disease on dialysis: Code(s): N18.6 - End stage renal disease; Z99.2 - Dependence on renal dialysis Status: Acute Plan 1) Cardiopulmonary Arrest with successful recussitation - patient was having a routine colonoscopy and while being sedated he had an asystolic episode. - He received 2 rounds of epinephrine and chest compressions were performed. - He was initially intubated on arrival to the ER and then subsequently was extubated. - On April 15 patient again started having respiratory distress and was intubated again. - Patient was extubated on April 21, 2017 and has been doing well. - [facility] (04/25/18) with Dr. Ramos Arredondo - Successful percutaneous coronary intervention with drug-eluting stent to the mid body of the saphenous vein graft to diagonal branch. - ASA, plavix, imdur, lipitor 2) Septic Thrombophlebitis - comgmt with Vascular Surgery and Infectious Disease - Pt taken to the OR by Dr. Meade. & underwent excision of the antecubital veins and a portion of the basilic vein on the right with tissue cultures, irrigation and packing. - Case d/w Dr. Meade (04/27/18) - Zosyn stopped - Vancomycin stopped 04/24 - Zyvox (04/25 - present) - vancomycin on HD days - Case discussed between Drs. Carreno & Rossy. - Diffucult to dose vanco given the way pt gets his outpt hemodialysis at home. She is recommending zyvoxx. would give last doses of zyvoxx on 05/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 - wound Cx (04/26) --> no growth 3) Anemia - pt notes prior h/o GIB - EGD (05/11) with Dr. Haskins 1. Large ulcer was found in the distal esophagus 2. Food residue in the gastric fundus and gastric antrum 3. Normal duodenal mucosa in the entire duodenum 4. Retroflexed views revealed no abnormalities - anemia likely multifactorial: acute illness, ESRD, esophageal ulcer - Case d/w Dr. Haskins (05/11). - repeat EGD with Colonoscopy outpt in 4 weeks - increase protonix to BID - receiving Epogen - Pt received 1 unit PRBCs (05/06) - transfused 2 units PRBCs (05/10) - Hg 9.6 (05/10), 9.6 (05/11) - CBC in AM 4) Hypotension, resolved - anemia contributing - Recently, 3 new meds bb/ccb/hydralazine. stopped hydralazine. - Hydralzine stopped - Cardizem on hold. Watch for recurrent afib/rvr - imdur decreased from 120mg to 90mg --> decrease to 60mg daily - improved readings 05/11 5) Atrial Fibrillation - IV Cardizem stopped - PO Cardizem 6) ESRD on HD - HD ,, Wednesday per Dr. Vasquez 7) DM2 - SSI Progress Note: Quality VTE Deep Vein Thrombosis/Pulmonary Embolism Present on Admission: No _ (1) CAD (coronary artery disease) Qualifiers: Coronary Disease-Associated Artery/Lesion type: [place] vs. transplanted heart: Associated angina: (2) Afib Qualifiers: Atrial fibrillation type: (3) Anemia Qualifiers: Anemia type: Iron deficiency anemia type: Vitamin B12 deficiency anemia type: Folate deficiency anemia type: Bone marrow failure anemia type: Hemolytic anemia type: Other causes of anemia: Chronic kidney disease stage :
--- NOTE | 2018-05-12 19:15 | P.PN ---
Subjective Interval history: Feels much better today. Off oxygen saturation 94 Use CPAP at night. Ambulates in halls. No further GI bleed Dialysis in a.m.. We will go to rehab in a.m. Physical Exam Vital signs: Vital Signs 05/11/18 20:00 05/11/18 23:33 05/12/18 00:00 Temperature 99.5 F 98.5 F Pulse Rate 109 H 78 92 H Respiratory Rate 16 16 16 Blood Pressure 112/54 L 104/51 L Pulse Oximetry 91 L 92 L 05/12/18 04:00 05/12/18 04:42 05/12/18 08:00 Temperature 98.6 F 97.5 F L Pulse Rate 88 73 90 Respiratory Rate 16 16 18 Blood Pressure 90/49 L 96/51 L Pulse Oximetry 96 96 05/12/18 10:41 05/12/18 11:55 05/12/18 12:00 Temperature 98.2 F Pulse Rate 94 H 88 Respiratory Rate 16 Blood Pressure 123/56 L Pulse Oximetry 96 95 05/12/18 16:00 05/12/18 16:15 Temperature 98.1 F Pulse Rate 91 H 93 H Respiratory Rate 16 Blood Pressure 106/51 L Pulse Oximetry 95 Intake & Output 05/12/18 05/12/18 05/13/18 06:59 18:59 06:59 Intake Total 240 / 240 444 / 444 Output Total 1999 0 / 0 Balance -1760 / -1760 444 / 444 Weight 123 kg Intake: Oral 240 / 240 444 / 444 Other 0 / 0 Output: Urine 0 / 0 0 / 0 Hemodialysis Amount 1999 Other: Date of Last Bowel Movement 05/10/18 05/10/18 # Bowel Movements 0 Narrative: GENERAL: Obese elderly white male alert ,no acute distress. NECK: No carotid bruits. No JVD. HEENT: Unremarkable CARDIOVASCULAR: Regular rate and rhythm. No murmur appreciated. ABDOMEN: soft, nontender, active bowel sounds. RESPIRATORY: No accessory muscle use. Few bibasilar crackles with distant breath sounds. MUSCULOSKELETAL: No clubbing or cyanosis. No edema - has compression hose on. NEUROLOGICAL: Awake and alert. Normal speech. No focal deficit. Results - Labs CBC & Chem 7: 05/12/18 06:03 05/12/18 06:03 Laboratory Results - last 24 hr 05/12/18 05/12/18 05/12/18 06:03 06:03 06:03 WBC 8.0 RBC 3.16 L Hgb 9.1 L Hct 28.1 L MCV 88.8 MCH 28.7 MCHC 32.3 RDW 18.9 H Plt Count 144 L MPV 8.0 Neut % (Auto) 77.6 H Lymph % (Auto) 13.0 [place] % (Auto) 6.7 Eos % (Auto) 2.2 Baso % (Auto) 0.5 Neut # (Auto) 6.2 Lymph # (Auto) 1.0 [place] # (Auto) 0.5 Eos # (Auto) 0.2 Baso # (Auto) 0.0 WBC Differential . Differential Comment Auto diff final Sodium 138 Potassium 4.5 Chloride 100 Carbon Dioxide 29.8 Anion Gap 8 BUN 38 H Creatinine 6.10 H Estimated GFR 9 L POC Glucose Random Glucose 59 L Calcium 9.1 PTH Intact 1429.4 H 05/12/18 05/12/18 05/12/18 08:06 12:04 17:24 WBC RBC Hgb Hct MCV MCH MCHC RDW Plt Count MPV Neut % (Auto) Lymph % (Auto) [place] % (Auto) Eos % (Auto) Baso % (Auto) Neut # (Auto) Lymph # (Auto) [place] # (Auto) Eos # (Auto) Baso # (Auto) WBC Differential Differential Comment Sodium Potassium Chloride Carbon Dioxide Anion Gap BUN Creatinine Estimated GFR POC Glucose 80 76 95 Random Glucose Calcium PTH Intact Assessment and Plan - Assessment (1) Respiratory failure Code(s): J96.90 - Respiratory failure, unspecified, unspecified whether with hypoxia or hypercapnia Status: Acute (2) Metabolic bone disease Code(s): E88.9 - Metabolic disorder, unspecified; M90.80 - Osteopathy in diseases classified elsewhere, unspecified site Status: Acute (3) Supraventricular arrhythmia Code(s): I49.9 - Cardiac arrhythmia, unspecified Status: Acute (4) End stage renal disease Code(s): N18.6 - End stage renal disease Status: Acute (5) Hypertension Code(s): I10 - Essential (primary) hypertension Status: Acute (6) Diabetes Code(s): E11.9 - Type 2 diabetes mellitus without complications Status: Acute (7) End stage renal disease on dialysis Code(s): N18.6 - End stage renal disease; Z99.2 - Dependence on renal dialysis Status: Acute (8) Cardiopulmonary arrest with successful resuscitation Code(s): I46.9 - Cardiac arrest, cause unspecified Status: Acute (9) End stage renal disease on dialysis Code(s): N18.6 - End stage renal disease; Z99.2 - Dependence on renal dialysis Status: Acute - Plan 1 Continue O2 2 L N /C as needed daytime and at bedtime 2. Continue CPAP at bedtime with oxygen 28% 3. Ambulate in halls 4. Continue antibiotics per ID 5. DuoNeb nebs 3 times daily. 6. Arrange home O2 at 2 L 7. Incentive spirometry 4 times daily 8. Protonix 40 mg twice daily (5) Hypertension Qualifiers: Hypertension type: essential hypertension Qualified Code(s): I10 - Essential (primary) hypertension (6) Diabetes Qualifiers: Diabetes mellitus senior care insulin use: unspecified termite technician insulin use status
--- NOTE | 2018-05-13 05:38 | P.PNVS ---
Subjective Subjective/Hospital Course: 57-year-old male with multiple medical problems currently in workup. Noted to have a large lump in the right antecubital fossa This is consistent with a phlebolith thrombosis of antecubital and proximal basilic vein and most likely septic thrombophlebitis at that I agree with Dr. Duke that this is septic source and should be definitely treated Patient is scheduled today to undergo coronary angioplasty and depending on the results of that patient will be taken to the operating room tomorrow for excision of this provided there are no surprises with coronary angiogram. Excision can be performed under local anesthesia with some sedation and patient does not need to be intubated for this. Full consult has been dictated and please refer for details to this. I discussed this at length with the patient and he understands that there is no significant risk involved in any procedure but if this point I believe that we do not have a choice and patient will seed infection from this to possibly distant sites while the risk of procedure is not steroid certainly lower than most other interventions that this patient had. 04/27/2018 Septic phlebitis site with subcutaneous tissue and surrounding tissue is been excised from the right antecubital fossa Remainder of the tissues appear to be clean Skin and subcutaneous tissue was loosely reapproximated and iodoform packing placed Today I removed iodoform packing washed and redressed the wound Patient will need wound redressed daily and as needed 04/28/2018 Incision is clean and dry patient has excellent distal pulses Stitches will remain in place for about total of 2 weeks Dressing change daily Nothing further to add to care will sign off at this time and please let me know if any other issues can be addressed 03/17/18 Stitches removed R antecubital fossa Incision healed well No infection, medial aspect healing per 2nd intention as planned. Objective Vital Signs / I&O: Vital Signs 05/12/18 08:00 05/12/18 10:41 05/12/18 11:55 Temperature 97.5 F L 98.2 F Pulse Rate 90 94 H Respiratory Rate 18 16 Blood Pressure 96/51 L 123/56 L Pulse Oximetry 96 96 95 05/12/18 12:00 05/12/18 16:00 05/12/18 16:15 Temperature 98.1 F Pulse Rate 88 91 H 93 H Respiratory Rate 16 Blood Pressure 106/51 L Pulse Oximetry 95 05/12/18 20:00 05/12/18 22:52 05/13/18 00:00 Temperature 99.3 F 97.9 F Pulse Rate 96 H 78 95 H Respiratory Rate 16 16 16 Blood Pressure 117/77 80/45 L Pulse Oximetry 94 L 95 05/13/18 03:01 05/13/18 04:00 Temperature Pulse Rate 63 88 Respiratory Rate 16 Blood Pressure Pulse Oximetry Intake & Output 05/12/18 05/12/18 05/13/18 06:59 18:59 06:59 Intake Total 240 / 240 444 / 444 Output Total 1999 0 / 0 Balance -1760 / -1760 444 / 444 Weight 123 kg Intake: Oral 240 / 240 444 / 444 Other 0 / 0 Output: Urine 0 / 0 0 / 0 Hemodialysis Amount 1999 Other: Date of Last Bowel Movement 05/10/18 05/10/18 05/10/18 # Bowel Movements 0 Laboratory Results - last 24 hr 05/12/18 05/12/18 05/12/18 06:03 06:03 06:03 WBC 8.0 RBC 3.16 L Hgb 9.1 L Hct 28.1 L MCV 88.8 MCH 28.7 MCHC 32.3 RDW 18.9 H Plt Count 144 L MPV 8.0 Neut % (Auto) 77.6 H Lymph % (Auto) 13.0 [place] % (Auto) 6.7 Eos % (Auto) 2.2 Baso % (Auto) 0.5 Neut # (Auto) 6.2 Lymph # (Auto) 1.0 [place] # (Auto) 0.5 Eos # (Auto) 0.2 Baso # (Auto) 0.0 WBC Differential . Differential Comment Auto diff final Sodium 138 Potassium 4.5 Chloride 100 Carbon Dioxide 29.8 Anion Gap 8 BUN 38 H Creatinine 6.10 H Estimated GFR 9 L POC Glucose Random Glucose 59 L Calcium 9.1 PTH Intact 1429.4 H 05/12/18 05/12/18 05/12/18 08:06 12:04 17:24 WBC RBC Hgb Hct MCV MCH MCHC RDW Plt Count MPV Neut % (Auto) Lymph % (Auto) [place] % (Auto) Eos % (Auto) Baso % (Auto) Neut # (Auto) Lymph # (Auto) [place] # (Auto) Eos # (Auto) Baso # (Auto) WBC Differential Differential Comment Sodium Potassium Chloride Carbon Dioxide Anion Gap BUN Creatinine Estimated GFR POC Glucose 80 76 95 Random Glucose Calcium PTH Intact 05/12/18 19:47 WBC RBC Hgb Hct MCV MCH MCHC RDW Plt Count MPV Neut % (Auto) Lymph % (Auto) [place] % (Auto) Eos % (Auto) Baso % (Auto) Neut # (Auto) Lymph # (Auto) [place] # (Auto) Eos # (Auto) Baso # (Auto) WBC Differential Differential Comment Sodium Potassium Chloride Carbon Dioxide Anion Gap BUN Creatinine Estimated GFR POC Glucose 92 Random Glucose Calcium PTH Intact
[2018-05-13] MEDS: Isosorbide Mononitrate 60 MG ER 24HR Tablet (Imdur) PO SCH (06:16)
[2018-05-13] MEDS: Insulin NovoLIN Regular Correctional Sugar Inj SQ SCH ×2 (07:32→12:29)
[2018-05-13 12:54] LABS: Baso % (Auto) 0.3 % (0.0-2.0); Eos # (Auto) 0.2 th/mm3 (0.0-0.4); Eos % (Auto) 1.8 % (0.0-4.0); Hematocrit 29.5 % (39.0-51.0); Hemoglobin 9.6 gm/dL (13.0-17.0); Lymph % (Auto) 11.2 % (9.0-44.0); Mean Corpuscular HGB Conc 32.4 % (32.0-36.0); Mean Corpuscular Hemoglobin 28.5 pg (27.0-34.0); Mean Corpuscular Volume 88.2 fL (80.0-100.0); Mean Platelet Volume 7.9 fL (7.0-11.0); Mono # (Auto) 0.6 th/mm3 (0.0-0.9); Mono % (Auto) 6.5 % (0.0-8.0); Neut # (Auto) 6.9 th/mm3 (1.8-7.7); Neut % (Auto) 80.2 % (16.0-70.0); Platelet Count 142 th/mm3 (150-450); Red Blood Count 3.35 mil/mm3 (4.50-5.90); Red Cell Distribution Width 18.8 % (11.6-17.2); White Blood Count 8.6 th/mm3 (4.0-11.0)
[2018-05-13 12:56] VITALS: BP 94/53; PULSE 107; RESP 20; TEMP 98.1; O2SAT 95
[2018-05-13] MEDS: Metoprolol Tartrate 25 MG Tablet PO SCH (12:56)
[2018-05-13] MEDS: Senna/Docusate Sodium 8.6/50 MG Tablet PO SCH (12:57)
[2018-05-13] MEDS: Calcitriol 0.25 MCG Capsule PO SCH (12:58)
[2018-05-13] MEDS: Vitamin B Complex/Vit C/Folic Tablet PO SCH (12:58)
--- NOTE | 2018-05-13 14:01 | P.PNNP ---
Subjective Interval history: Patient was seen during dialysis, no distress, was on 3K 350 ml/min UF goal of 3 L. Patient possibly being discharged to [facility] today. <Leeann Mcgarry - Last Filed: 05/13/18 13:55> Physical Exam Vital signs: Vital Signs 05/12/18 16:00 05/12/18 16:15 05/12/18 20:00 Temperature 98.1 F 99.3 F Pulse Rate 91 H 93 H 96 H Respiratory Rate 16 16 Blood Pressure 106/51 L 117/77 Pulse Oximetry 95 94 L 05/12/18 22:52 05/13/18 00:00 05/13/18 03:01 Temperature 97.9 F Pulse Rate 78 95 H 63 Respiratory Rate 16 16 16 Blood Pressure 80/45 L Pulse Oximetry 95 05/13/18 04:00 05/13/18 08:00 05/13/18 08:01 Temperature 97.8 F 96.9 F L Pulse Rate 86 95 H Respiratory Rate 16 18 Blood Pressure 91/43 L 113/55 L Pulse Oximetry 95 98 05/13/18 12:00 Temperature 98.1 F Pulse Rate 107 H Respiratory Rate 20 Blood Pressure 94/53 L Pulse Oximetry 95 Intake & Output 05/12/18 05/13/18 05/13/18 18:59 06:59 18:59 Intake Total 444 / 444 Output Total 0 / 0 0 / 0 3000 / 3000 Balance 444 / 444 0 / 0 -3000 / -3000 Weight 124 kg Intake: Oral 444 / 444 Other 0 / 0 Output: Urine 0 / 0 0 / 0 Hemodialysis Amount 3000 / 3000 Other: Date of Last Bowel Movement 05/10/18 05/10/18 # Bowel Movements 0 Narrative: GENERAL: no acute distress, on HD. NECK: No carotid bruits. No JVD. HEENT: Unremarkable CARDIOVASCULAR: Regular rate and rhythm. No murmur appreciated. ABDOMEN: soft, nontender, active bowel sounds. RESPIRATORY: No accessory muscle use. Few bibasilar crackles with distant breath sounds. MUSCULOSKELETAL: No clubbing or cyanosis. No edema - has compression hose on. NEUROLOGICAL: Awake and alert. Normal speech. No focal deficit. <Leeann Mcgarry - Last Filed: 05/13/18 13:55> Vital signs: Vital Signs 05/12/18 16:00 05/12/18 16:15 05/12/18 20:00 Temperature 98.1 F 99.3 F Pulse Rate 91 H 93 H 96 H Respiratory Rate 16 16 Blood Pressure 106/51 L 117/77 Pulse Oximetry 95 94 L 05/12/18 22:52 05/13/18 00:00 05/13/18 03:01 Temperature 97.9 F Pulse Rate 78 95 H 63 Respiratory Rate 16 16 16 Blood Pressure 80/45 L Pulse Oximetry 95 05/13/18 04:00 05/13/18 08:00 05/13/18 08:01 Temperature 97.8 F 96.9 F L Pulse Rate 86 95 H Respiratory Rate 16 18 Blood Pressure 91/43 L 113/55 L Pulse Oximetry 95 98 05/13/18 12:00 Temperature 98.1 F Pulse Rate 107 H Respiratory Rate 20 Blood Pressure 94/53 L Pulse Oximetry 95 Intake & Output 05/12/18 05/13/18 05/13/18 18:59 06:59 18:59 Intake Total 444 / 444 Output Total 0 / 0 0 / 0 3000 / 3000 Balance 444 / 444 0 / 0 -3000 / -3000 Weight 124 kg Intake: Oral 444 / 444 Other 0 / 0 Output: Urine 0 / 0 0 / 0 Hemodialysis Amount 3000 / 3000 Other: Date of Last Bowel Movement 05/10/18 05/10/18 # Bowel Movements 0 <Tramaine Dixon - Last Filed: 05/13/18 14:50> Assessment and Plan - Assessment (1) End stage renal disease Code(s): N18.6 - End stage renal disease Status: Acute Plan: Patient with ESRD, on Home HD. Patient getting dialysis MWF while hospitalized. Patient was seen during HD today, was on 3K 350 ml/min UF goal of 3 L. Avoid blood draws, IV's, BP measurements in arm with AVF. Avoid Gadolinium. Monitor fluid and electrolytes. Avoid nephrotoxic agents. (2) Hypertension Code(s): I10 - Essential (primary) hypertension Status: Acute Qualifiers: Hypertension type: essential hypertension Qualified Code(s): I10 - Essential (primary) hypertension Plan: Continue to monitor. Has been hypotensive. 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 (4) Cardiopulmonary arrest with successful resuscitation Code(s): I46.9 - Cardiac arrest, cause unspecified Status: Acute Plan: s/p cardiac cath. Cardiac signed off (5) Metabolic bone disease Code(s): E88.9 - Metabolic disorder, unspecified; M90.80 - Osteopathy in diseases classified elsewhere, unspecified site Status: Acute Plan: Sensipar was previously held due to hypocalcemia. Ca now 9.1. Sensipar restarted yesterday. PTH level 1429.4, patient on Calcitriol 0.5 mcg po daily. Monitor phosphorus intermittently. He is on Renvela. Phosphorus 05/09 was 6.3. (6) Thrombophlebitis arm Code(s): I80.8 - Phlebitis and thrombophlebitis of other sites Status: Acute Plan: s/p I&D. (7) Anemia Code(s): D64.9 - Anemia, unspecified Status: Acute Plan: Continue Epogen with dialysis. Monitor for active bleeding. s/p 2 units PRBCs 05/09. GI consulted. s/p EGD. Note reviewed, repeat EGD in 3 months <Leeann Mcgarry - Last Filed: 05/13/18 13:55> - Assessment (1) End stage renal disease Code(s): N18.6 - End stage renal disease Status: Acute (2) Hypertension Code(s): I10 - Essential (primary) hypertension Status: Acute Qualifiers: Hypertension type: essential hypertension Qualified Code(s): I10 - Essential (primary) hypertension (3) Diabetes Code(s): E11.9 - Type 2 diabetes mellitus without complications Status: Acute Qualifiers: Diabetes mellitus fci insulin use: unspecified fci insulin use status (4) Cardiopulmonary arrest with successful resuscitation Code(s): I46.9 - Cardiac arrest, cause unspecified Status: Acute (5) Metabolic bone disease Code(s): E88.9 - Metabolic disorder, unspecified; M90.80 - Osteopathy in diseases classified elsewhere, unspecified site Status: Acute (6) Thrombophlebitis arm Code(s): I80.8 - Phlebitis and thrombophlebitis of other sites Status: Acute (7) Anemia Code(s): D64.9 - Anemia, unspecified Status: Acute - Attending Attestation patient was seen and examined. Agree with above assessment and plan. <Tramaine Dixon - Last Filed: 05/13/18 14:50>
--- NOTE | 2018-05-13 14:12 | P.DS ---
DS: Providers Date of admission: Admit: 04/11/18 12:17 Discharge 05/13/18 Primary care physician: Gerhard Mejia MD Consults: 04/11/18 12:18 Consult to Nephrology Routine Consulting Provider: Ailin Vasquez Does the patient have a Email Marketing Intern who follows them?: No Preferred Nephrology Settlement Worker:: Gas Scrubber Operator Physician Reason for Consultation: ESRD Notified:: Service Spoke with:: NEDRA Date Notified:: 04/11/18 Time Notified:: 12:40 Ordering Provider: MARTA 04/11/18 13:32 Consult to Cardiology Routine Consulting Provider: Ramos Arredondo Does the patient have a Laborer/Grade Check who follows them?: Yes Preferred Sow Manager:: Ramos Arredondo Reason for Consultation: s/p cardiac arrest, CAD/ patient known to you Notified:: Office Spoke with:: Lyric Date Notified:: 04/11/18 Time Notified:: 13:35 Ordering Provider: MARTA 04/11/18 13:43 Consult to Hospitalist Routine Consulting Provider: Emmanuel Augustin Reason for Consultation: medical management Notified:: Service Spoke with:: keri Date Notified:: 04/11/18 Time Notified:: 14:22 Ordering Provider: MARTA 04/13/18 08:07 Consult to Cardiology Routine Consulting Provider: David Hidalgo Does the patient have a Laborer/Grade Check who follows them?: Yes Preferred Sow Manager:: David Hidalgo Reason for Consultation: Asystolic arrest. NSVT on tele. Notified:: Office Spoke with:: dinorah Date Notified:: 04/13/18 Time Notified:: 08:32 Ordering Provider: [place] 04/13/18 11:20 HUB Only Consult Order Routine Consulting Provider: Joelle Brunson,Lur[place] 04/19/18 11:46 Consult to Pulmonology Routine Consulting Provider: Homero Sousa V Preferred Settlement Worker:: Homero Sousa Reason for Consultation: resp failure Notified:: Office Spoke with:: Char Date Notified:: 04/19/18 Time Notified:: 12:32 Ordering Provider: MARTA 04/24/18 13:27 Consult to Infectious Diseases Routine Consulting Provider: Kaela Blair Preferred Settlement Worker:: Kaela Blair Reason for Consultation: Persistent leukocytosis Notified:: Service Spoke with:: KYA Date Notified:: 04/24/18 Time Notified:: 13:41 Comments:: Ordering Provider: MARGE 04/24/18 13:28 Consult to Hospitalist Routine Consulting Provider: Mirza Carreno Reason for Consultation: Status post cardiac arrest, now extubated. H/O ESRD , GCS 15. Pulmonology following Notified:: Service Spoke with:: KYA Date Notified:: 04/24/18 Time Notified:: 13:38 Comments:: Ordering Provider: MARGE 05/09/18 16:56 Consult to Gastroenterology Routine Consulting Provider: Jonnathan Haskins V Reason for Consultation: anemia previous h/o GIB Notified:: Service Spoke with:: Keri Date Notified:: 05/09/18 Time Notified:: 17:09 Ordering Provider: NASH 05/10/18 17:17 Consult to Cardiology Routine Consulting Provider: Ramos Arredondo Does the patient have a Laborer/Grade Check who follows them?: Yes Preferred Sow Manager:: Ramos Arredondo Reason for Consultation: cardiac clearance for EGD Notified:: Service Spoke with:: ANDREA Date Notified:: 05/10/18 Time Notified:: 17:29 Ordering Provider: NASH DS: Diagnosis Discharge Diagnosis (1) History of ulcer disease: Status: Acute (2) CAD (coronary artery disease): Status: Acute (3) Afib: Status: Acute (4) Anemia: Status: Acute (5) Supraventricular arrhythmia: Status: Acute (6) End stage renal disease on dialysis: Status: Acute DS: Summary 1) Cardiopulmonary Arrest with successful recussitation - patient was having a routine colonoscopy and while being sedated he had an asystolic episode. - He received 2 rounds of epinephrine and chest compressions were performed. - He was initially intubated on arrival to the ER and then subsequently was extubated. - On April 15 patient again started having respiratory distress and was intubated again. - Patient was extubated on April 21, 2017 and has been doing well. - [facility] (04/25/18) with Dr. Ramos Arredondo - Successful percutaneous coronary intervention with drug-eluting stent to the mid body of the saphenous vein graft to diagonal branch. - ASA, plavix, imdur, lipitor 2) Septic Thrombophlebitis - comgmt with Vascular Surgery and Infectious Disease - Pt taken to the OR by Dr. Meade. & underwent excision of the antecubital veins and a portion of the basilic vein on the right with tissue cultures, irrigation and packing. - Case d/w Dr. Meade (04/27/18) - Zosyn stopped - Vancomycin stopped 04/24 - Zyvox (04/25 - present) - vancomycin on HD days - Case discussed between Drs. Carreno & Rossy. - Diffucult to dose vanco given the way pt gets his outpt hemodialysis at home. She is recommending zyvoxx. would give last doses of zyvoxx on 05/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 - wound Cx (04/26) --> no growth 3) Anemia - pt notes prior h/o GIB - EGD (05/11) with Dr. Haskins 1. Large ulcer was found in the distal esophagus 2. Food residue in the gastric fundus and gastric antrum 3. Normal duodenal mucosa in the entire duodenum 4. Retroflexed views revealed no abnormalities - anemia likely multifactorial: acute illness, ESRD, esophageal ulcer - Case d/w Dr. Haskins (05/11). - repeat EGD with Colonoscopy outpt in 4 weeks - increase protonix to BID - receiving Epogen - Pt received 1 unit PRBCs (05/06) - transfused 2 units PRBCs (05/10) - Hg 9.6 (05/10), 9.6 (05/11) - CBC in AM 4) Hypotension, resolved - anemia contributing - Recently, 3 new meds bb/ccb/hydralazine. stopped hydralazine. - Hydralzine stopped - Cardizem on hold. Watch for recurrent afib/rvr - imdur decreased from 120mg to 90mg --> decrease to 60mg daily - improved readings 05/11 5) Atrial Fibrillation - IV Cardizem stopped - PO Cardizem 6) ESRD on HD - HD ,, Wednesday per Dr. Vasquez 7) DM2 - SSI Time Spent with Patient Total time spent providing and/or coordinating discharge services: Quality: VTE Deep Vein Thrombosis/Pulmonary Embolism Present on Admission: No Results Completed studies during hospitalization: Pending at discharge 04/26/18 16:22 Surgical [PTH] Routine Labs on day of discharge: Labs from last 24 hours 05/13/18 05/13/18 05/13/18 11:54 11:45 07:29 WBC 8.6 RBC 3.35 L Hgb 9.6 L Hct 29.5 L MCV 88.2 MCH 28.5 MCHC 32.4 RDW 18.8 H Plt Count 142 L MPV 7.9 Neut % (Auto) 80.2 H Lymph % (Auto) 11.2 [place] % (Auto) 6.5 Eos % (Auto) 1.8 Baso % (Auto) 0.3 Neut # (Auto) 6.9 Lymph # (Auto) 1.0 [place] # (Auto) 0.6 Eos # (Auto) 0.2 Baso # (Auto) 0.0 WBC Differential . Differential Comment Auto diff final POC Glucose 93 84 05/12/18 05/12/18 19:47 17:24 WBC RBC Hgb Hct MCV MCH MCHC RDW Plt Count MPV Neut % (Auto) Lymph % (Auto) [place] % (Auto) Eos % (Auto) Baso % (Auto) Neut # (Auto) Lymph # (Auto) [place] # (Auto) Eos # (Auto) Baso # (Auto) WBC Differential Differential Comment POC Glucose 92 95 Preliminary micro results at discharge 04/26/18 14:52 Fungal Culture - Preliminary Other No growth in 2 weeks 04/26/18 14:52 Mycobacterial Culture - Preliminary Tissue - Other No growth in 2 weeks Impressions ITS Impressions Chest CTA 04/12/18 00:00 CONCLUSION: 1. No CT evidence for pulmonary artery embolism as questioned. 2. Cardiomegaly with trace bilateral pleural effusions and mild airspace consolidation at the lung bases which may reflect compressive atelectasis. Differential considerations include aspiration in the appropriate clinical setting. 3. Trace perihepatic ascites fluid. Venous Doppler Study 04/24/18 00:00 CONCLUSION: 1. The study is negative for upper extremity deep venous thrombosis. Chest X-Ray 05/02/18 14:28 CONCLUSION: Cardiomegaly without overt failure Minimal parenchymal changes left base Discharge Plan Discharge Disposition Patient Disposition: [facility] Re[facility] Inpatient Discharge Condition Condition: Stable Discharge Order Discharge Orders: Cardiology Clear for Discharge (Routine); Ordered 04/26/18 Ordered By: Ramos Arredondo Discharge Details Anticipated Discharge Date: 05/06/18 Physicians Team ED Provider: Wayne Perla Primary Care Provider: Gerhard Mejia Attending Provider: Emmanuel Augustin Other Providers: Ailin Vasquez ; Ramos Arredondo ; David Hidalgo ; [facility] ; Homero Sousa V ; Mirza Carreno ; Kaela Blair ; Jonnathan Haskins V Rxs /Orders / Referrals /Forms Prescriptions: New ipratropium-albuterol 0.5 mg-3 mg(2.5 mg base)/3 mL Solution For Nebulization 3 ml NEB Q4HR NEB Qty: 180 RF: 0 sevelamer carbonate [Renvela] 800 mg Tablet 2,400 mg PO TIDAC 30 Days Qty: 60 RF: 0 calcitriol [Rocaltrol] 0.25 mcg Capsule 0.5 mcg PO DAILY 30 Days Qty: 60 RF: 0 pantoprazole [Protonix] 40 mg tablet,delayed release (DR/EC) 40 mg PO DAILY 28 Days Qty: 28 RF: 0 clopidogrel [Plavix] 75 mg Tablet 75 mg PO DAILY Qty: 30 RF: 6 atorvastatin 40 mg Tablet 80 mg PO HS Qty: 30 RF: 0 diltiazem HCl 240 mg Capsule,Extended Release 24hr 240 mg PO DAILY Qty: 30 RF: 0 hydralazine 25 mg Tablet 25 mg PO TID Qty: 90 RF: 0 isosorbide mononitrate 60 mg Tablet Extended Release 24 Hr 120 mg PO DAILY@0700 Qty: 60 RF: 0 metoprolol tartrate 25 mg Tablet 25 mg PO BID Qty: 60 RF: 0 aspirin 81 mg Tablet,Delayed Release (Dr/Ec) 81 mg PO DAILY Qty: 180 RF: 0 Continue insulin glargine [Lantus U-100 Insulin] 100 unit/mL Solution 25 unit SUB-Q HS RF: 0 prednisone 5 mg Tablet 5 mg PO DAILY RF: 0 Discontinued furosemide 80 mg Tablet 80 mg PO DAILY RF: 0 sevelamer carbonate [Renvela] 800 mg Tablet 1,600 mg PO TIDAC RF: 0 albuterol sulfate [Ventolin HFA] 90 mcg/actuation Hfa Aerosol Inhaler 2 puff INHALATION Q4-6H PRN (Reason: Shortness Of Breath Or Wheezing) RF: 0 Referrals: Tramaine Dixon MD [Physician] - See Instructions (2 weeks.) Gerhard Mejia MD [Primary Care Provider] - See Instructions (follow up in 2 week) Ramos Arredondo MD [Physician] - See Instructions (follow up in 1-2 weeks 7 days event monitor) Discharge Instructions Patient Printed Instructions: Metoprolol (By mouth), Diltiazem (By mouth), Calcitriol (By mouth), Hydralazine (By mouth), Isosorbide Mononitrate (By mouth) , Atorvastatin (By mouth), Sevelamer (By mouth), Pantoprazole (By mouth), Linezolid (By mouth), Chronic Kidney Disease Diet (DC), Meal Planning with Diabetes Exchanges (DC), Heart Catheterization (DC) Status ED Status: Left Department
== END 2018-05-13 16:50 | DRG 246 ==
LOC: NEPC 10:19 → NEDA 12:17 → HIMC 12:55 → N04 04-13 20:00 → HCPC 04-14 15:49 → HIMC 04-15 13:05 → N04 04-26 21:51
PROVIDERS: ADMIT Hospitalist; ATTEND Hospitalist
PROC: AVGFTUE (ICD-10-PCS; 2018-04-26 14:01)
PROC: PANENDO (2018-05-11 10:29)
DX: I34.0 Nonrheumatic mitral (valve) insufficiency; M79.673 Pain in unspecified foot; Z82.5 Family history of asthma and other chronic lower respiratory diseases; M90.80 Osteopathy in diseases classified elsewhere, unspecified site; K29.80 Duodenitis without bleeding; Z99.2 Dependence on renal dialysis; J96.01 Acute respiratory failure with hypoxia; R19.7 Diarrhea, unspecified; Z95.1 Presence of aortocoronary bypass graft; E83.51 Hypocalcemia; I46.9 Cardiac arrest, cause unspecified; R11.2 Nausea with vomiting, unspecified; J40 Bronchitis, not specified as acute or chronic; I95.1 Orthostatic hypotension; K25.9 Gastric ulcer, unspecified as acute or chronic, without hemorrhage or perforation; E88.89 Other specified metabolic disorders; I25.2 Old myocardial infarction; Z77.22 Contact with and (suspected) exposure to environmental tobacco smoke (acute) (chronic); I13.2 Hypertensive heart and chronic kidney disease with heart failure and with stage 5 chronic kidney disease, or end stage renal disease; I25.719 Atherosclerosis of autologous vein coronary artery bypass graft(s) with unspecified angina pectoris; Z79.82 Long term (current) use of aspirin; Z79.899 Other long term (current) drug therapy; T17.590A Other foreign object in bronchus causing asphyxiation, initial encounter; D12.0 Benign neoplasm of cecum; M54.12 Radiculopathy, cervical region; E78.00 Pure hypercholesterolemia, unspecified; M47.818 Spondylosis without myelopathy or radiculopathy, sacral and sacrococcygeal region; K92.1 Melena; K31.84 Gastroparesis; I80.8 Phlebitis and thrombophlebitis of other sites; E87.5 Hyperkalemia; I48.91 Unspecified atrial fibrillation; K26.9 Duodenal ulcer, unspecified as acute or chronic, without hemorrhage or perforation; M54.5 Low back pain; R42 Dizziness and giddiness; G47.33 Obstructive sleep apnea (adult) (pediatric); D62 Acute posthemorrhagic anemia; K59.00 Constipation, unspecified; Z87.19 Personal history of other diseases of the digestive system; Z79.4 Long term (current) use of insulin; N25.81 Secondary hyperparathyroidism of renal origin; E11.22 Type 2 diabetes mellitus with diabetic chronic kidney disease; E55.9 Vitamin D deficiency, unspecified; Z85.828 Personal history of other malignant neoplasm of skin; L02.413 Cutaneous abscess of right upper limb; K21.9 Gastro-esophageal reflux disease without esophagitis; K57.30 Diverticulosis of large intestine without perforation or abscess without bleeding; Z86.73 Personal history of transient ischemic attack (TIA), and cerebral infarction without residual deficits; I47.2 Ventricular tachycardia; I47.1 Supraventricular tachycardia; Z86.2 Personal history of diseases of the blood and blood-forming organs and certain disorders involving the immune mechanism; Z80.3 Family history of malignant neoplasm of breast; E66.01 Morbid (severe) obesity due to excess calories; G89.29 Other chronic pain; M47.816 Spondylosis without myelopathy or radiculopathy, lumbar region; Z87.891 Personal history of nicotine dependence; J44.9 Chronic obstructive pulmonary disease, unspecified; R94.39 Abnormal result of other cardiovascular function study; K22.10 Ulcer of esophagus without bleeding; R51 Headache; I49.3 Ventricular premature depolarization; Z68.38 Body mass index [BMI] 38.0-38.9, adult; R40.2410 Glasgow coma scale score 13-15, unspecified time; T86.12 Kidney transplant failure; I50.9 Heart failure, unspecified; Z87.11 Personal history of peptic ulcer disease; J98.11 Atelectasis; E11.21 Type 2 diabetes mellitus with diabetic nephropathy; D63.1 Anemia in chronic kidney disease; I42.9 Cardiomyopathy, unspecified; Z90.49 Acquired absence of other specified parts of digestive tract; I25.119 Atherosclerotic heart disease of native coronary artery with unspecified angina pectoris; I07.9 Rheumatic tricuspid valve disease, unspecified; N18.6 End stage renal disease; E78.5 Hyperlipidemia, unspecified
CPT/HCPCS: 31500; 31624; 36430; 36540; 36591; 36600; 71010; 71045; 71275; 76937; 80048; 80053; 80061; 80069; 80074; 80202; 82040; 82550; 82805; 82948; 82962; 83520; 83735; 83880; 83970; 84100; 84484; 85002; 85014; 85018; 85025; 85610; 85730; 86850; 86900; 86901; 86923; 87015; 87040; 87070; 87102; 87116; 87176; 87205; 87206; 87641; 88305; 90765; 90774; 90775; 90780; 90784; 90935; 92937; 93005; 93306; 93455; 93971; 94002; 94003; 94150; 94640; 94656; 94657; 94664; 94665; 94667; 96365; 96374; 96375; 97110; 97116; 97162; 97164; 97530; 99152; 99153; 99291; C1725; C1760; C1769; C1874; C1887; C1893; C8950; C8952; C9113; C9223; G0269; J0150; J0153; J0610; J0886; J1644; J1815; J1817; J1940; J2020; J2250; J2270; J2370; J2405; J2543; J2597; J2704; J2765; J2920; J3010; J3370; J7030; J7040; J7050; J7120; J7506; J7512; P9016; P9045; P9047; Q4055; Q4081; Q9967